=== PATIENT | male | born 1980 | race Caucasian/White ===

== ENCOUNTER 2016-07-18 05:36 | Day surgery (SDC) | payer OTHER ==
[2016-07-13 11:02] VITALS: BMI 20.9
[2016-07-18] MEDS ORDERED: KETAMINE HCL 500 MG/10 ML VIAL ONE (07:34)
[2016-07-18] MEDS ORDERED: ACETAMINOPHEN 325 MG TABLET (FP) PO PRN (08:11)
[2016-07-18] MEDS ORDERED: LACTATED RINGERS SOLUTION 1,000 ML IV SCH (08:15)
[2016-07-18 08:34] VITALS: PULSE 72; TEMP 97.5
[2016-07-18 08:59] VITALS: BP 116/80
== END 2016-07-18 09:00 | disposition home or self-care (01) ==
LOC: FECT 05:36
PROVIDERS: ATTEND Psychiatry & Neurology Psychiatry
PROC: GZB4ZZZ Other Electroconvulsive Therapy (ICD-10-PCS; principal; 2016-07-18 08:00)
DX: F33.1 Major depressive disorder, recurrent, moderate (principal)
CPT/HCPCS: 90870; 94760

== ENCOUNTER 2016-07-20 05:37 | Day surgery (SDC) | payer OTHER ==
[2016-07-13 11:07] VITALS: BMI 20.9
[2016-07-20] MEDS ORDERED: ONDANSETRON 4 MG/2 ML VIAL IVPUSH PRN (06:22)
[2016-07-20] MEDS ORDERED: LACTATED RINGERS SOLUTION 1,000 ML IV SCH (06:30)
[2016-07-20] MEDS ORDERED: KETAMINE HCL 500 MG/10 ML VIAL ONE (06:47)
[2016-07-20 07:44] VITALS: TEMP 98.2
[2016-07-20 10:01] VITALS: BP 126/80; PULSE 92
== END 2016-07-20 08:15 | disposition home or self-care (01) ==
LOC: FECT 05:37
PROVIDERS: ATTEND Psychiatry & Neurology Psychiatry
PROC: GZB4ZZZ Other Electroconvulsive Therapy (ICD-10-PCS; principal; 2016-07-20 07:45)
DX: F33.1 Major depressive disorder, recurrent, moderate (principal)
CPT/HCPCS: 90870; 94760

== ENCOUNTER → 2016-07-25 | Day surgery (SDC) | payer OTHER ==
[2016-07-19 16:19] VITALS: BMI 20.9
[~2016-07-25] MED LIST: KETAMINE HCL 500 MG/10 ML VIAL ONE; LACTATED RINGERS SOLUTION 1,000 ML IV SCH; MIDAZOLAM HCL 2 MG/2 ML SINGLE DOSE VIAL ONE
[2016-07-25 06:15] VITALS: TEMP 97.6
[2016-07-25 08:21] VITALS: BP 122/63; PULSE 84
== END | disposition home or self-care (01) ==
LOC: FECT 05:42
PROVIDERS: ATTEND Psychiatry & Neurology Psychiatry
PROC: GZB4ZZZ Other Electroconvulsive Therapy (ICD-10-PCS; principal; 2016-07-25 07:45)
DX: F33.1 Major depressive disorder, recurrent, moderate (principal)
CPT/HCPCS: 90870; 94760

== ENCOUNTER 2016-07-27 05:39 | Day surgery (SDC) | payer OTHER ==
[2016-07-20 10:10] VITALS: BMI 20.9
[2016-07-27 07:34] VITALS: TEMP 97.8
[2016-07-27 08:30] VITALS: BP 124/87; PULSE 85
== END 2016-07-27 08:45 | disposition home or self-care (01) ==
LOC: FECT 05:39
PROVIDERS: ATTEND Psychiatry & Neurology Psychiatry
PROC: GZB4ZZZ Other Electroconvulsive Therapy (ICD-10-PCS; principal; 2016-07-27 07:30)
DX: F33.1 Major depressive disorder, recurrent, moderate (principal)
CPT/HCPCS: 90870; 94760

== ENCOUNTER 2016-08-01 05:09 | Day surgery (SDC) | payer OTHER ==
[2016-07-26 08:06] VITALS: BMI 20.9
[2016-08-01 05:57] VITALS: TEMP 97.5
[2016-08-01 08:20] VITALS: BP 122/84; PULSE 92
[2016-08-01] MEDS ORDERED: LACTATED RINGERS SOLUTION 1,000 ML IV SCH (08:45)
== END 2016-08-01 08:10 | disposition home or self-care (01) ==
LOC: FECT 05:09
PROVIDERS: ATTEND Psychiatry & Neurology Psychiatry
PROC: GZB4ZZZ Other Electroconvulsive Therapy (ICD-10-PCS; principal; 2016-08-01 07:15)
DX: F33.1 Major depressive disorder, recurrent, moderate (principal)
CPT/HCPCS: 90870; 94760

== ENCOUNTER 2016-08-03 05:38 | Day surgery (SDC) | payer OTHER ==
[2016-08-03 06:05] VITALS: BMI 20.9
--- NOTE | 2016-08-03 06:49 | HP ---
Admitting History and Physical - Admission History of Present Illness: patient is a 35 y/o male with a past medical history of depression, anxiety and scizophrenia. patient presents for ECT, his last ECT was 08/01/16. He reports feeling well. Patient reports an improvement in depressive symptoms since starting ECT. Patient denies any suicidal or homicidal ideation, visual or auditory hallucination. He denies any changes to medications or hospitalizations. History Source: Patient - Past Medical History Psych: Yes: Anxiety, Depression, Schizophrenia - Smoking History Smoking history: Current every day smoker Have you smoked in the past 12 months: Yes Aproximately how many cigarettes per day: 10 - Alcohol/Substance Use Hx Alcohol Use: No (PT SOBER 7 MONTHS) - Social History ADL: Independent History of Recent Travel: No Home Medications - Allergies Allergies/Adverse Reactions: Allergies Allergy/AdvReac Type Severity Reaction Status Date / Time No Known Drug Allergies Allergy Verified 08/01/16 05:51 - Home Medications Home Medications: Ambulatory Orders Clozapine [Clozapine Odt] 100 mg PO BID 01/07/14 Clozapine [Clozapine Odt] 600 mg PO HS 01/07/14 Bupropion HCl [Wellbutrin Xl] 300 mg PO DAILY 07/02/16 Esomeprazole Magnesium 40 mg PO DAILY 07/02/16 Levetiracetam [Keppra Xr -] 1,000 mg PO BID 07/02/16 Metoprolol Succinate [Toprol XL -] 12.5 mg PO BID 07/02/16 Sucralfate [Carafate -] 1 gm PO QID 07/02/16 Trazodone HCl [Desyrel -] 200 mg PO HS 07/02/16 Potassium Chloride [Klor-Con] 20 meq PO DAILY 07/03/16 Risperidone [Risperdal] 2 mg PO BID 07/11/16 Family Disease History - Family Disease History Family History: Unremarkable Review of Systems - Review of Systems Constitutional: reports: No Symptoms Eyes: reports: No Symptoms HENT: reports: No Symptoms Neck: reports: No Symptoms Cardiovascular: reports: No Symptoms Respiratory: reports: No Symptoms Gastrointestinal: reports: No Symptoms Genitourinary: reports: No Symptoms Musculoskeletal: reports: No Symptoms Integumentary: reports: No Symptoms Neurological: reports: No Symptoms Endocrine: reports: No Symptoms Hematology/Lymphatic: reports: No Symptoms Psychiatric: reports: No Symptoms Physical Examination Vital Signs: Vital Signs Temperature 97.7 F 08/03/16 06:02 Pulse Rate 88 08/03/16 06:02 Respiratory Rate 18 08/03/16 06:02 Blood Pressure 118/76 08/03/16 06:02 O2 Sat by Pulse Oximetry (%) 99 08/03/16 06:02 Constitutional: Yes: Well Nourished, No Distress, Calm Eyes: Yes: WNL, Conjunctiva Clear, EOM Intact HENT: Yes: WNL, Atraumatic, Normocephalic Neck: Yes: WNL, Supple, Trachea Midline Cardiovascular: Yes: WNL, Regular Rate and Rhythm, S1, S2 Respiratory: Yes: WNL, Regular, CTA Bilaterally Gastrointestinal: Yes: WNL, Normal Bowel Sounds, Soft ...Rectal Exam: Yes: Deferred Renal/: Yes: WNL Musculoskeletal: Yes: WNL Extremities: Yes: WNL Edema: No Peripheral Pulses WNL: Yes Peripheral Pulses: Left Radial: 4+, Right Radial: 4+, Left Doralis Pedis: 3+, Right Dorsalis Pedis: 3+, Left Femoral: 3+, Right Femoral: 3+ Integumentary: Yes: WNL Neurological: Yes: WNL, Alert, Oriented ...Motor Strength: WNL Psychiatric: Yes: WNL, Alert, Oriented Labs: reviewed 07/03/16 Imaging - Results EKG: Image Reviewed, Other (nsr no ischemic changes) Assessment/Plan pt is a 35 y/o male that presents for ect, pt labs and ekg reviewed. pt is low risk for ect informed consent, risks/benefits to be obtained by Dr Bundy
[2016-08-03 09:17] VITALS: TEMP 98.5
[2016-08-03 11:40] VITALS: BP 132/82; PULSE 78
[2016-08-03] MEDS ORDERED: LACTATED RINGERS SOLUTION 1,000 ML IV SCH (12:30)
[2016-08-03] MEDS ORDERED: ONDANSETRON 4 MG/2 ML VIAL IVPUSH PRN (13:09)
== END 2016-08-03 10:00 | disposition home or self-care (01) ==
LOC: FECT 05:38
PROVIDERS: ATTEND Psychiatry & Neurology Psychiatry
PROC: GZB4ZZZ Other Electroconvulsive Therapy (ICD-10-PCS; principal; 2016-08-03 08:00)
DX: F33.1 Major depressive disorder, recurrent, moderate (principal)
CPT/HCPCS: 90870; 94760

== ENCOUNTER 2016-08-09 05:37 | Day surgery (SDC) | payer OTHER ==
[2016-08-06 07:36] VITALS: BMI 20.9
[2016-08-09] MEDS ORDERED: KETAMINE HCL 500 MG/10 ML VIAL ONE (06:52)
[2016-08-09] MEDS ORDERED: LACTATED RINGERS SOLUTION 1,000 ML IV SCH (07:30)
[2016-08-09 08:01] VITALS: PULSE 92; TEMP 97.8
[2016-08-09 08:31] VITALS: BP 127/84
== END 2016-08-09 08:25 | disposition home or self-care (01) ==
LOC: FECT 05:37
PROVIDERS: ATTEND Psychiatry & Neurology Psychiatry
PROC: GZB4ZZZ Other Electroconvulsive Therapy (ICD-10-PCS; principal; 2016-08-09 08:15)
DX: F33.1 Major depressive disorder, recurrent, moderate (principal)
CPT/HCPCS: 90870; 94760

== ENCOUNTER 2016-08-16 05:37 | Day surgery (SDC) | payer OTHER ==
[2016-08-13 16:41] VITALS: BMI 20.9
[2016-08-16 07:58] VITALS: PULSE 88; TEMP 98.9
[2016-08-16 08:26] VITALS: BP 136/84
== END 2016-08-16 08:15 | disposition home or self-care (01) ==
LOC: FECT 05:37
PROVIDERS: ATTEND Psychiatry & Neurology Psychiatry
PROC: GZB4ZZZ Other Electroconvulsive Therapy (ICD-10-PCS; principal; 2016-08-16 08:30)
DX: F33.1 Major depressive disorder, recurrent, moderate (principal)
CPT/HCPCS: 90870; 94760

== ENCOUNTER 2016-08-28 05:41 | Day surgery (SDC) | payer OTHER ==
[2016-08-17 14:04] VITALS: BMI 20.9
[2016-08-28] MEDS ORDERED: ONDANSETRON 4 MG/2 ML VIAL IVPUSH PRN (06:32)
[2016-08-28 06:36] VITALS: TEMP 98.7
[2016-08-28 09:08] VITALS: BP 130/85; PULSE 78
== END 2016-08-28 08:55 | disposition home or self-care (01) ==
LOC: FECT 05:41
PROVIDERS: ATTEND Psychiatry & Neurology Psychiatry
PROC: GZB4ZZZ Other Electroconvulsive Therapy (ICD-10-PCS; principal; 2016-08-28 07:45)
DX: F33.2 Major depressive disorder, recurrent severe without psychotic features (principal)
CPT/HCPCS: 90870; 94760

== ENCOUNTER 2016-08-31 05:41 | Day surgery (SDC) | payer OTHER ==
[2016-08-29 15:09] VITALS: BMI 20.9
[2016-08-31] MEDS ORDERED: ONDANSETRON 4 MG/2 ML VIAL IVPUSH PRN (06:27)
[2016-08-31 06:30] VITALS: TEMP 98
[2016-08-31] MEDS ORDERED: LACTATED RINGERS SOLUTION 1,000 ML IV SCH (06:30)
[2016-08-31 08:21] VITALS: BP 133/77; PULSE 86
== END 2016-08-31 08:30 | disposition home or self-care (01) ==
LOC: FECT 05:41
PROVIDERS: ATTEND Psychiatry & Neurology Psychiatry
PROC: GZB4ZZZ Other Electroconvulsive Therapy (ICD-10-PCS; principal; 2016-08-31 07:45)
DX: F33.1 Major depressive disorder, recurrent, moderate (principal)
CPT/HCPCS: 90870; 94760

== ENCOUNTER 2016-09-05 05:37 | Day surgery (SDC) | payer OTHER ==
[2016-08-31 13:23] VITALS: BMI 20.9
--- NOTE | 2016-09-05 06:59 | HP ---
Admitting History and Physical - Admission History of Present Illness: patient is a 35 y/o male with a past medical history of scizophrenia, depression , and anxiety. Patient presents for ECT, his last ECT was 08/28/16. patient reports feeling well, denies any changes to medications. he reports compliance with prescribed medications. he reports feeling well and reports an improvment in symptoms since starting ect. patient denies any suicidal or homicidal ideation. History Source: Patient Limitations to Obtaining History: No Limitations - Past Medical History Psych: Yes: Anxiety, Depression, Schizophrenia - Smoking History Smoking history: Current every day smoker Have you smoked in the past 12 months: Yes Aproximately how many cigarettes per day: 10 - Alcohol/Substance Use Hx Alcohol Use: No (SOBER DATE 03/04/16) - Social History Usual Living Arrangement: Yes: Other ADL: Independent History of Recent Travel: No Home Medications - Allergies Allergies/Adverse Reactions: Allergies Allergy/AdvReac Type Severity Reaction Status Date / Time No Known Drug Allergies Allergy Verified 08/01/16 05:51 - Home Medications Home Medications: Ambulatory Orders Clozapine [Clozapine Odt] 100 mg PO BID 01/07/14 Clozapine [Clozapine Odt] 600 mg PO HS 01/07/14 Bupropion HCl [Wellbutrin Xl] 300 mg PO DAILY 07/02/16 Esomeprazole Magnesium 40 mg PO DAILY 07/02/16 Levetiracetam [Keppra Xr -] 1,000 mg PO BID 07/02/16 Metoprolol Succinate [Toprol XL -] 12.5 mg PO BID 07/02/16 Sucralfate [Carafate -] 1 gm PO QID 07/02/16 Trazodone HCl [Desyrel -] 200 mg PO HS 07/02/16 Potassium Chloride [Klor-Con] 20 meq PO DAILY 07/03/16 Risperidone [Risperdal] 2 mg PO BID 07/11/16 Family Disease History - Family Disease History Family History: Unremarkable Review of Systems - Review of Systems Constitutional: reports: No Symptoms Eyes: reports: No Symptoms HENT: reports: No Symptoms Neck: reports: No Symptoms Cardiovascular: reports: No Symptoms Respiratory: reports: No Symptoms Gastrointestinal: reports: No Symptoms Genitourinary: reports: No Symptoms Musculoskeletal: reports: No Symptoms Integumentary: reports: No Symptoms Neurological: reports: No Symptoms Endocrine: reports: No Symptoms Hematology/Lymphatic: reports: No Symptoms Psychiatric: reports: No Symptoms Physical Examination Vital Signs: Vital Signs Temperature 97.7 F 09/05/16 05:55 Pulse Rate 83 09/05/16 05:55 Respiratory Rate 18 09/05/16 05:55 Blood Pressure 109/81 09/05/16 05:55 O2 Sat by Pulse Oximetry (%) 100 09/05/16 05:55 Constitutional: Yes: Well Nourished, No Distress, Calm Eyes: Yes: WNL, Conjunctiva Clear, EOM Intact HENT: Yes: WNL, Atraumatic, Normocephalic Neck: Yes: WNL, Supple, Trachea Midline Cardiovascular: Yes: WNL, Regular Rate and Rhythm, S1, S2 Respiratory: Yes: WNL, Regular, CTA Bilaterally Gastrointestinal: Yes: WNL, Normal Bowel Sounds, Soft Renal/: Yes: WNL Breast(s): Yes: WNL Musculoskeletal: Yes: WNL Extremities: Yes: WNL Edema: No Peripheral Pulses WNL: Yes Peripheral Pulses: Left Radial: 4+, Right Radial: 4+, Left Doralis Pedis: 3+, Right Dorsalis Pedis: 3+, Left Femoral: 3+, Right Femoral: 3+ Integumentary: Yes: WNL Neurological: Yes: WNL, Alert, Oriented ...Motor Strength: WNL Psychiatric: Yes: WNL, Alert, Oriented (reviewed 06/29) Imaging - Results EKG: Image Reviewed (nsr no ischemic changes) Assessment/Plan pt is a 35 y/o male that presents for ECT, he has received ect in the past and denies any adverse reaction to anesthesia. labs and ekg reviewed pt is low risk for procedure informed consent and risks/benefits to be obtained by Dr Bundy
[2016-09-05 08:15] VITALS: TEMP 97.9
[2016-09-05 09:27] VITALS: BP 119/72; PULSE 73
== END 2016-09-05 09:05 | disposition home or self-care (01) ==
LOC: FECT 05:37
PROVIDERS: ATTEND Psychiatry & Neurology Psychiatry
PROC: GZB4ZZZ Other Electroconvulsive Therapy (ICD-10-PCS; principal; 2016-09-05 07:00)
DX: F33.1 Major depressive disorder, recurrent, moderate (principal)
CPT/HCPCS: 90870; 94760

== ENCOUNTER 2016-09-12 05:40 | Day surgery (SDC) | payer OTHER ==
[2016-09-05 09:25] VITALS: BMI 20.9
[2016-09-12 06:00] VITALS: TEMP 97.8
[2016-09-12] MEDS ORDERED: KETAMINE HCL 500 MG/10 ML VIAL ONE (06:43)
[2016-09-12] MEDS ORDERED: ONDANSETRON 4 MG/2 ML VIAL IVPUSH PRN (07:00)
[2016-09-12] MEDS ORDERED: LACTATED RINGERS SOLUTION 1,000 ML IV SCH (07:00)
[2016-09-12 08:50] VITALS: BP 116/78; PULSE 79
== END 2016-09-12 08:40 | disposition home or self-care (01) ==
LOC: FECT 05:40
PROVIDERS: ATTEND Psychiatry & Neurology Psychiatry
PROC: GZB4ZZZ Other Electroconvulsive Therapy (ICD-10-PCS; principal; 2016-09-12 07:15)
DX: F33.2 Major depressive disorder, recurrent severe without psychotic features (principal)
CPT/HCPCS: 90870; 94760

== ENCOUNTER 2016-09-18 05:33 | Day surgery (SDC) | payer OTHER ==
[2016-09-12 15:06] VITALS: BMI 20.9
[2016-09-18 08:38] VITALS: BP 124/84; PULSE 82; TEMP 98
[2016-09-18] MEDS ORDERED: ONDANSETRON 4 MG/2 ML VIAL IVPUSH PRN (08:39)
[2016-09-18] MEDS ORDERED: LACTATED RINGERS SOLUTION 1,000 ML IV SCH (08:45)
== END 2016-09-18 08:30 | disposition home or self-care (01) ==
LOC: FECT 05:33
PROVIDERS: ATTEND Psychiatry & Neurology Psychiatry
PROC: GZB4ZZZ Other Electroconvulsive Therapy (ICD-10-PCS; principal; 2016-09-18 07:45)
DX: F33.2 Major depressive disorder, recurrent severe without psychotic features (principal)
CPT/HCPCS: 90870; 94760

== ENCOUNTER 2016-09-26 05:34 | Day surgery (SDC) | payer OTHER ==
[2016-09-26 06:19] VITALS: BMI 22.6
[2016-09-26 08:07] VITALS: BP 132/81; PULSE 74; TEMP 98.2
[2016-09-26] MEDS ORDERED: ACETAMINOPHEN 325 MG TABLET (FP) PO PRN (08:13)
[2016-09-26] MEDS ORDERED: ONDANSETRON 4 MG/2 ML VIAL IVPUSH PRN (08:16)
== END 2016-09-26 08:15 | disposition home or self-care (01) ==
LOC: FECT 05:34
PROVIDERS: ATTEND Psychiatry & Neurology Psychiatry
PROC: GZB4ZZZ Other Electroconvulsive Therapy (ICD-10-PCS; principal; 2016-09-26 07:15)
DX: F33.2 Major depressive disorder, recurrent severe without psychotic features (principal)
CPT/HCPCS: 90870; 94760

== ENCOUNTER 2016-10-02 05:38 | Day surgery (SDC) | payer OTHER ==
[2016-10-02 08:26] VITALS: TEMP 98
[2016-10-02 08:57] VITALS: BP 136/95; PULSE 72
[2016-10-02] MEDS ORDERED: ONDANSETRON 4 MG/2 ML VIAL IVPUSH PRN (08:59)
[2016-10-02] MEDS ORDERED: LACTATED RINGERS SOLUTION 1,000 ML IV SCH (09:00)
== END 2016-10-02 09:30 | disposition home or self-care (01) ==
LOC: FECT 05:38
PROVIDERS: ATTEND Psychiatry & Neurology Psychiatry
PROC: GZB4ZZZ Other Electroconvulsive Therapy (ICD-10-PCS; principal; 2016-10-02 07:15)
DX: F33.2 Major depressive disorder, recurrent severe without psychotic features (principal)
CPT/HCPCS: 90870; 94760

== ENCOUNTER 2016-10-09 05:39 | Day surgery (SDC) | payer OTHER ==
[2016-10-08 11:56] VITALS: BMI 22.6
[2016-10-09 06:39] VITALS: TEMP 98.9
--- NOTE | 2016-10-09 06:52 | HP ---
Admitting History and Physical - Admission History of Present Illness: patient is a 36 y/o male with a past medical history of scizophrenia, depression and anxiety. patient presents for ect, his last ect was 10/02/16. He reports feeling well and reports compliance with prescribed medication. patient denies any recent medication changes, hospitalizations, or illness. History Source: Patient Limitations to Obtaining History: No Limitations - Past Medical History Psych: Yes: Anxiety, Depression, Schizophrenia - Smoking History Smoking history: Current every day smoker Have you smoked in the past 12 months: Yes Aproximately how many cigarettes per day: 10 - Alcohol/Substance Use Hx Alcohol Use: No (SOBER DATE 03/04/16) - Social History Usual Living Arrangement: Yes: Assisted Living, Other ADL: Independent History of Recent Travel: No Home Medications - Allergies Allergies/Adverse Reactions: Allergies Allergy/AdvReac Type Severity Reaction Status Date / Time No Known Drug Allergies Allergy Verified 08/01/16 05:51 - Home Medications Home Medications: Ambulatory Orders Clozapine [Clozapine Odt] 100 mg PO BID 01/07/14 Clozapine [Clozapine Odt] 600 mg PO HS 01/07/14 Bupropion HCl [Wellbutrin Xl] 300 mg PO DAILY 07/02/16 Esomeprazole Magnesium 40 mg PO DAILY 07/02/16 Levetiracetam [Keppra Xr -] 1,000 mg PO BID 07/02/16 Metoprolol Succinate [Toprol XL -] 12.5 mg PO BID 07/02/16 Sucralfate [Carafate -] 1 gm PO QID 07/02/16 Trazodone HCl [Desyrel -] 200 mg PO HS 07/02/16 Potassium Chloride [Klor-Con] 20 meq PO DAILY 07/03/16 Risperidone [Risperdal] 2 mg PO BID 07/11/16 Family Disease History - Family Disease History Family History: Unremarkable Review of Systems - Review of Systems Constitutional: reports: No Symptoms Eyes: reports: No Symptoms HENT: reports: No Symptoms Neck: reports: No Symptoms Cardiovascular: reports: No Symptoms Respiratory: reports: No Symptoms Gastrointestinal: reports: No Symptoms Genitourinary: reports: No Symptoms Breasts: reports: No Symptoms Reported Musculoskeletal: reports: No Symptoms Integumentary: reports: No Symptoms Neurological: reports: No Symptoms Endocrine: reports: No Symptoms Hematology/Lymphatic: reports: No Symptoms Psychiatric: reports: No Symptoms Physical Examination Vital Signs: Vital Signs Temperature 98.9 F 10/09/16 06:33 Pulse Rate 81 10/09/16 06:33 Respiratory Rate 18 10/09/16 06:33 Blood Pressure 108/76 10/09/16 06:33 O2 Sat by Pulse Oximetry (%) 98 10/09/16 06:33 Constitutional: Yes: Well Nourished, No Distress, Calm Eyes: Yes: WNL, Conjunctiva Clear, EOM Intact HENT: Yes: WNL, Atraumatic, Normocephalic Neck: Yes: WNL, Supple, Trachea Midline Cardiovascular: Yes: WNL, Regular Rate and Rhythm, S1, S2 Respiratory: Yes: WNL, Regular, CTA Bilaterally Gastrointestinal: Yes: WNL, Normal Bowel Sounds, Soft ...Rectal Exam: Yes: Deferred Renal/: Yes: WNL Musculoskeletal: Yes: WNL Extremities: Yes: WNL Edema: No Peripheral Pulses WNL: Yes Peripheral Pulses: Left Radial: 4+, Right Radial: 4+, Left Doralis Pedis: 3+, Right Dorsalis Pedis: 3+, Left Femoral: 3+, Right Femoral: 3+ Integumentary: Yes: WNL Neurological: Yes: WNL, Alert, Oriented ...Motor Strength: WNL Psychiatric: Yes: WNL, Alert, Oriented Labs: reviewed 06/29 Imaging - Results EKG: Report Reviewed, Image Reviewed, Other (nsr no ischemic changes) Assessment/Plan pt is a 36 y/o male that presents for ect, pt has received ect in the past and denies any adverse reaction to anesthesia. labs and ekg reviewed. pt is low risk for procedure informed consent, risk/benefits to be obtained by Dr Bundy
[2016-10-09] MEDS ORDERED: LACTATED RINGERS SOLUTION 1,000 ML IV SCH (07:30)
[2016-10-09 09:02] VITALS: BP 131/84; PULSE 69
== END 2016-10-09 09:05 | disposition home or self-care (01) ==
LOC: FECT 05:39
PROVIDERS: ATTEND Psychiatry & Neurology Psychiatry
PROC: GZB4ZZZ Other Electroconvulsive Therapy (ICD-10-PCS; principal; 2016-10-09 07:15)
DX: F33.2 Major depressive disorder, recurrent severe without psychotic features (principal)
CPT/HCPCS: 90870; 94760

== ENCOUNTER 2016-10-18 05:35 | Day surgery (SDC) | payer OTHER ==
[2016-10-16 11:58] VITALS: BMI 22.6
[2016-10-18 07:49] VITALS: TEMP 97.6
[2016-10-18 08:06] VITALS: BP 124/85; PULSE 88
== END 2016-10-18 08:45 | disposition home or self-care (01) ==
LOC: FECT 05:35
PROVIDERS: ATTEND Psychiatry & Neurology Psychiatry
PROC: GZB4ZZZ Other Electroconvulsive Therapy (ICD-10-PCS; principal; 2016-10-18 07:15)
DX: F33.2 Major depressive disorder, recurrent severe without psychotic features (principal)
CPT/HCPCS: 90870; 94760

== ENCOUNTER 2016-10-30 05:34 | Day surgery (SDC) | payer OTHER ==
[2016-10-23 16:14] VITALS: BMI 22.6
[2016-10-30 06:24] VITALS: TEMP 97.6
[2016-10-30 08:20] VITALS: BP 130/89; PULSE 85
[2016-10-30] MEDS ORDERED: ONDANSETRON 4 MG/2 ML VIAL IVPUSH PRN (08:33)
[2016-10-30] MEDS ORDERED: LACTATED RINGERS SOLUTION 1,000 ML IV SCH (08:45)
== END 2016-10-30 08:50 | disposition home or self-care (01) ==
LOC: FECT 05:34
PROVIDERS: ATTEND Psychiatry & Neurology Psychiatry
PROC: GZB4ZZZ Other Electroconvulsive Therapy (ICD-10-PCS; principal; 2016-10-30 07:45)
DX: F33.2 Major depressive disorder, recurrent severe without psychotic features (principal)
CPT/HCPCS: 90870; 94760

== ENCOUNTER 2016-11-06 05:37 | Day surgery (SDC) | payer OTHER ==
[2016-11-01 11:07] VITALS: BMI 22.6
[2016-11-06 06:13] VITALS: TEMP 98.1
[2016-11-06] MEDS ORDERED: KETAMINE HCL 500 MG/10 ML VIAL ONE (06:54)
[2016-11-06 08:09] VITALS: BP 125/85; PULSE 82
== END 2016-11-06 08:30 | disposition home or self-care (01) ==
LOC: FECT 05:37
PROVIDERS: ATTEND Psychiatry & Neurology Psychiatry
PROC: GZB4ZZZ Other Electroconvulsive Therapy (ICD-10-PCS; principal; 2016-11-06 07:45)
DX: F33.2 Major depressive disorder, recurrent severe without psychotic features (principal)
CPT/HCPCS: 90870; 94760

== ENCOUNTER 2016-11-15 05:36 | Day surgery (SDC) | payer OTHER ==
[2016-11-08 09:20] VITALS: BMI 22.6
[2016-11-15 06:07] VITALS: TEMP 97.8
--- NOTE | 2016-11-15 06:52 | HP ---
Admitting History and Physical - Admission History of Present Illness: patient is a 36 y/o male with a past medical history of depression, anxiety, and scizophrenia. Patient presents for ECT his last ECT was 11/09/16. patient reports feeling well, denies any changes in his medications, illness, or hospitalizations. Patient reports an improvement in depressive symptoms since starting ECT. He denies any suicidal or homicidal ideation and visual or auditory hallucinations. History Source: Patient Limitations to Obtaining History: No Limitations - Past Medical History Psych: Yes: Anxiety, Depression, Schizophrenia - Smoking History Smoking history: Current every day smoker Have you smoked in the past 12 months: Yes Aproximately how many cigarettes per day: 2 - Alcohol/Substance Use Hx Alcohol Use: No (SOBER DATE 03/04/16) - Social History Usual Living Arrangement: Yes: Other (with roomates) ADL: Independent History of Recent Travel: No Home Medications - Allergies Allergies/Adverse Reactions: Allergies Allergy/AdvReac Type Severity Reaction Status Date / Time No Known Drug Allergies Allergy Verified 08/01/16 05:51 - Home Medications Home Medications: Ambulatory Orders Clozapine [Clozapine Odt] 100 mg PO BID 01/07/14 Clozapine [Clozapine Odt] 600 mg PO HS 01/07/14 Bupropion HCl [Wellbutrin Xl] 300 mg PO DAILY 07/02/16 Esomeprazole Magnesium 40 mg PO DAILY 07/02/16 Levetiracetam [Keppra Xr -] 1,000 mg PO BID 07/02/16 Metoprolol Succinate [Toprol XL -] 12.5 mg PO BID 07/02/16 Sucralfate [Carafate -] 1 gm PO QID 07/02/16 Trazodone HCl [Desyrel -] 200 mg PO HS 07/02/16 Potassium Chloride [Klor-Con] 20 meq PO DAILY 07/03/16 Risperidone [Risperdal] 2 mg PO BID 07/11/16 Varenicline Tartrate [Chantix] 1 mg PO BID 10/30/16 Family Disease History - Family Disease History Family History: Denies Review of Systems - Review of Systems Constitutional: reports: No Symptoms Eyes: reports: No Symptoms HENT: reports: No Symptoms Neck: reports: No Symptoms Cardiovascular: reports: No Symptoms Respiratory: reports: No Symptoms Gastrointestinal: reports: No Symptoms Genitourinary: reports: No Symptoms Musculoskeletal: reports: No Symptoms Neurological: reports: No Symptoms Endocrine: reports: No Symptoms Hematology/Lymphatic: reports: No Symptoms Psychiatric: reports: No Symptoms Physical Examination Vital Signs: Vital Signs Temperature 97.8 F 11/15/16 06:02 Pulse Rate 100 H 11/15/16 06:02 Respiratory Rate 18 11/15/16 06:02 Blood Pressure 118/82 11/15/16 06:02 O2 Sat by Pulse Oximetry (%) 100 11/15/16 06:02 Constitutional: Yes: Well Nourished, No Distress, Calm Eyes: Yes: WNL, Conjunctiva Clear, EOM Intact HENT: Yes: WNL, Atraumatic, Normocephalic Neck: Yes: WNL, Supple, Trachea Midline Cardiovascular: Yes: WNL, Regular Rate and Rhythm, S1, S2 Respiratory: Yes: WNL, Regular, CTA Bilaterally Gastrointestinal: Yes: WNL, Normal Bowel Sounds, Soft ...Rectal Exam: Yes: Deferred Renal/: Yes: WNL. No: CVA Tenderness - Left, CVA Tenderness - Right Musculoskeletal: Yes: WNL Extremities: Yes: WNL Edema: No Peripheral Pulses WNL: Yes Peripheral Pulses: Left Radial: 4+, Right Radial: 4+, Left Doralis Pedis: 3+, Right Dorsalis Pedis: 3+, Left Femoral: 3+, Right Femoral: 3+ Integumentary: Yes: WNL Neurological: Yes: WNL, Alert, Oriented ...Motor Strength: WNL Psychiatric: Yes: WNL, Alert, Oriented Labs: reviewed 06/29 Imaging - Results EKG: Image Reviewed, Other (nsr no ischemic changes) Assessment/Plan pt is a 36 y/o male that presents for ECT, pt has received ect in the past and denies any adverse reaction to anesthesia. labs and ekg reviewed pt is low risk for procedure informed consent and risks/benefits to be obtained by Dr Bundy
[2016-11-15] MEDS ORDERED: ONDANSETRON 4 MG/2 ML VIAL IVPUSH PRN (06:55)
[2016-11-15] MEDS ORDERED: KETAMINE HCL 500 MG/10 ML VIAL ONE (06:59)
[2016-11-15 08:56] VITALS: BP 121/87; PULSE 82
== END 2016-11-15 08:30 | disposition home or self-care (01) ==
LOC: FECT 05:36
PROVIDERS: ATTEND Psychiatry & Neurology Psychiatry
PROC: GZB4ZZZ Other Electroconvulsive Therapy (ICD-10-PCS; principal; 2016-11-15 07:15)
DX: F33.2 Major depressive disorder, recurrent severe without psychotic features (principal)
CPT/HCPCS: 90870; 94760

== ENCOUNTER 2016-11-29 05:30 | Day surgery (SDC) | payer OTHER ==
[2016-11-19 14:33] VITALS: BMI 22.6
[2016-11-29 06:16] VITALS: TEMP 97.6
[2016-11-29] MEDS ORDERED: KETAMINE HCL 500 MG/10 ML VIAL ONE (07:23)
[2016-11-29 08:37] VITALS: BP 133/88; PULSE 88
[2016-11-29] MEDS ORDERED: ACETAMINOPHEN 325 MG TABLET (FP) PO PRN (09:47)
[2016-11-29] MEDS ORDERED: ONDANSETRON 4 MG/2 ML VIAL IVPUSH PRN (09:48)
== END 2016-11-29 08:40 | disposition home or self-care (01) ==
LOC: FECT 05:30
PROVIDERS: ATTEND Psychiatry & Neurology Psychiatry
PROC: GZB4ZZZ Other Electroconvulsive Therapy (ICD-10-PCS; principal; 2016-11-29 08:00)
DX: F33.2 Major depressive disorder, recurrent severe without psychotic features (principal)
CPT/HCPCS: 90870; 94760

== ENCOUNTER 2016-12-13 05:38 | Day surgery (SDC) | payer OTHER ==
[2016-12-05 13:27] VITALS: BMI 22.6
[2016-12-13 06:06] VITALS: TEMP 97.6
[2016-12-13 08:21] VITALS: BP 136/88; PULSE 83
== END 2016-12-13 08:40 | disposition home or self-care (01) ==
LOC: FECT 05:38
PROVIDERS: ATTEND Psychiatry & Neurology Psychiatry
PROC: GZB4ZZZ Other Electroconvulsive Therapy (ICD-10-PCS; principal; 2016-12-13 07:15)
DX: F33.2 Major depressive disorder, recurrent severe without psychotic features (principal)
CPT/HCPCS: 90870; 94760

== ENCOUNTER 2016-12-20 05:38 | Day surgery (SDC) | payer OTHER ==
[2016-12-13 12:24] VITALS: BMI 22.6
--- NOTE | 2016-12-20 06:57 | HP ---
Admitting History and Physical - Admission History of Present Illness: patient is a 36 y/o male with a past medical history of depression, scizophrenia , and anxiety. Patient presents for ECT, his last ECT was 12/13/16. Patient reports starting chantix two months ago. In addition, patient reports hearing voices three weeks ago, however, the voices have been worsening within the past week. Patient reports the voices are telling to him to jump in front a train. Patient denies any homicidal ideation. Patient reports his trazadone was increased yesterday to 200mg. He does report sleeping 8 hours yesterday. Patient denies any recent cough, colds or fevers. History Source: Patient - Past Medical History Psych: Yes: Anxiety, Depression, Schizophrenia - Smoking History Smoking history: Current every day smoker Have you smoked in the past 12 months: Yes Aproximately how many cigarettes per day: 1 - Alcohol/Substance Use Hx Alcohol Use: No (SOBER DATE 03/04/16) - Social History ADL: Independent History of Recent Travel: No Home Medications - Allergies Allergies/Adverse Reactions: Allergies Allergy/AdvReac Type Severity Reaction Status Date / Time No Known Drug Allergies Allergy Verified 08/01/16 05:51 - Home Medications Home Medications: Ambulatory Orders Clozapine [Clozapine Odt] 100 mg PO BID 01/07/14 Clozapine [Clozapine Odt] 600 mg PO HS 01/07/14 Bupropion HCl [Wellbutrin Xl] 300 mg PO DAILY 07/02/16 Esomeprazole Magnesium 40 mg PO DAILY 07/02/16 Levetiracetam [Keppra Xr -] 1,000 mg PO BID 07/02/16 Metoprolol Succinate [Toprol XL -] 12.5 mg PO BID 07/02/16 Sucralfate [Carafate -] 1 gm PO QID 07/02/16 Trazodone HCl [Desyrel -] 300 mg PO HS 07/02/16 Potassium Chloride [Klor-Con] 20 meq PO DAILY 07/03/16 Risperidone [Risperdal] 2 mg PO BID 07/11/16 Varenicline Tartrate [Chantix] 1 mg PO BID 10/30/16 Family Disease History - Family Disease History Family History: Unremarkable Review of Systems - Review of Systems Constitutional: reports: No Symptoms Eyes: reports: No Symptoms HENT: reports: No Symptoms Neck: reports: No Symptoms Cardiovascular: reports: No Symptoms Respiratory: reports: No Symptoms Gastrointestinal: reports: No Symptoms Genitourinary: reports: No Symptoms Breasts: reports: No Symptoms Reported Musculoskeletal: reports: No Symptoms Integumentary: reports: No Symptoms Neurological: reports: No Symptoms Endocrine: reports: No Symptoms Hematology/Lymphatic: reports: No Symptoms Psychiatric: reports: Hallucinations Physical Examination Vital Signs: Vital Signs Temperature 97.5 F L 12/20/16 06:22 Pulse Rate 83 12/20/16 06:22 Respiratory Rate 18 12/20/16 06:22 Blood Pressure 122/86 12/20/16 06:22 O2 Sat by Pulse Oximetry (%) 98 12/20/16 06:22 Constitutional: Yes: Well Nourished, No Distress, Calm Eyes: Yes: WNL, Conjunctiva Clear, EOM Intact HENT: Yes: WNL, Atraumatic, Normocephalic Neck: Yes: WNL, Supple, Trachea Midline Cardiovascular: Yes: WNL, Regular Rate and Rhythm, S1, S2 Respiratory: Yes: WNL, Regular, CTA Bilaterally Gastrointestinal: Yes: WNL, Normal Bowel Sounds, Soft ...Rectal Exam: Yes: Deferred Renal/: Yes: WNL Breast(s): Yes: WNL Musculoskeletal: Yes: WNL Extremities: Yes: WNL Edema: No Peripheral Pulses WNL: Yes Peripheral Pulses: Left Radial: 4+, Right Radial: 4+, Left Doralis Pedis: 3+, Right Dorsalis Pedis: 3+, Left Femoral: 3+, Right Femoral: 3+ Integumentary: Yes: WNL Neurological: Yes: WNL, Alert, Oriented ...Motor Strength: WNL Psychiatric: Yes: WNL, Alert, Oriented Labs: reviewed 06/29 Imaging - Results EKG: Other (nsr no ischemic changes) Assessment/Plan pt is a 36 y/o male that presents for ect, he has received ect in the past and denies any adverse reaction to anesthesia. labs and ekg reviewed pt is low risk for procedure. informed consent, risk/benefits to be obtained by Dr Bundy
[2016-12-20 08:04] LABS: ALBUMIN 4.2 g/dl (3.5-5.0); ALK PHOS 76 U/L (32-92); ANION GAP 9 (8-16); CALCIUM 9.4 mg/dl (8.4-10.2); CO2 25 mmol/L (22-28); CREATININE 1.1 mg/dl (0.6-1.3); GLUCOSE,RANDOM 101 mg/dl (74-106); SGOT/AST 24 U/L (10-42); SGPT/ALT 26 U/L (10-40); TOT PROT 6.6 g/dl (6.4-8.3)
[2016-12-20 08:39] LABS: BILIRUBIN,TOTAL < 0.3 mg/dl (0.2-1.0)
[2016-12-20] MEDS ORDERED: LACTATED RINGERS SOLUTION 1,000 ML IV SCH (08:45)
[2016-12-20] MEDS ORDERED: ONDANSETRON 4 MG/2 ML VIAL IVPUSH PRN (08:45)
[2016-12-20 09:02] LABS: MCH 30.8 pg (25.7-33.7); MCHC 33.3 g/dl (32.0-35.9); MEAN CELL VOLUME 92.3 fl (80-96); MEAN PLT VOLUME 7.8 fl (7.5-11.1); PLATELET COUNT 327 K/MM3 (134-434); RDW 13.5 % (11.9-15.9); WHITE BLOOD COUNT 11.9 K/mm3 (4.0-10.8)
[2016-12-20 09:36] VITALS: BP 130/84; PULSE 88; TEMP 98
== END 2016-12-20 09:50 | disposition home or self-care (01) ==
LOC: FECT 05:38
PROVIDERS: ATTEND Psychiatry & Neurology Psychiatry
PROC: GZB4ZZZ Other Electroconvulsive Therapy (ICD-10-PCS; principal; 2016-12-20 07:45)
DX: F33.2 Major depressive disorder, recurrent severe without psychotic features (principal)
CPT/HCPCS: 36415; 80053; 85027; 90870; 94760

== ENCOUNTER 2016-12-21 05:40 | Day surgery (SDC) | payer OTHER ==
[2016-12-21 06:21] VITALS: BMI 21.7
[2016-12-21 07:45] VITALS: TEMP 97.6
[2016-12-21 08:51] VITALS: BP 134/89; PULSE 92
--- NOTE | 2016-12-21 16:53 | EKG ---
Test Reason : Blood Pressure : / mmHG Vent. Rate : 087 BPM Atrial Rate : 087 BPM P-R Int : 150 ms QRS Dur : 088 ms QT Int : 372 ms P-R-T Axes : 028 036 036 degrees QTc Int : 447 ms NORMAL SINUS RHYTHM NORMAL ECG NO PREVIOUS ECGS AVAILABLE Confirmed by BIB JEAN BAPTISTE MD ([id number] on 12/21/2016 4:53:17 PM Referred By: Fran Bundy Confirmed By:BIB JEAN BAPTISTE MD
== END 2016-12-21 08:50 | disposition home or self-care (01) ==
LOC: FECT 05:40
PROVIDERS: ATTEND Psychiatry & Neurology Psychiatry
PROC: GZB4ZZZ Other Electroconvulsive Therapy (ICD-10-PCS; principal; 2016-12-21 07:30)
DX: F33.2 Major depressive disorder, recurrent severe without psychotic features (principal)
CPT/HCPCS: 90870; 93005; 93010; 94760

== ENCOUNTER 2016-12-24 05:42 | Day surgery (SDC) | payer OTHER ==
[2016-12-24 08:00] VITALS: TEMP 97.4
[2016-12-24 08:41] VITALS: BP 130/88; PULSE 78
== END 2016-12-24 09:20 | disposition home or self-care (01) ==
LOC: FECT 05:42
PROVIDERS: ATTEND Psychiatry & Neurology Psychiatry
PROC: GZB4ZZZ Other Electroconvulsive Therapy (ICD-10-PCS; principal; 2016-12-24 08:00)
DX: F33.2 Major depressive disorder, recurrent severe without psychotic features (principal)
CPT/HCPCS: 90870; 94760

== ENCOUNTER 2016-12-27 05:36 | Day surgery (SDC) | payer OTHER ==
[2016-12-26 11:48] VITALS: BMI 21.7
[2016-12-27] MEDS ORDERED: KETAMINE HCL 500 MG/10 ML VIAL ONE (07:18)
[2016-12-27 08:10] VITALS: TEMP 98.1
[2016-12-27 08:19] VITALS: BP 139/88; PULSE 88
== END 2016-12-27 08:30 | disposition home or self-care (01) ==
LOC: FECT 05:36
PROVIDERS: ATTEND Psychiatry & Neurology Psychiatry
PROC: GZB4ZZZ Other Electroconvulsive Therapy (ICD-10-PCS; principal; 2016-12-27 07:15)
DX: F33.2 Major depressive disorder, recurrent severe without psychotic features (principal)
CPT/HCPCS: 90870; 94760

== ENCOUNTER 2017-01-01 05:37 | Day surgery (SDC) | payer OTHER ==
[2016-12-27 11:22] VITALS: BMI 21.7
[2017-01-01 08:13] VITALS: TEMP 98
[2017-01-01 08:25] VITALS: BP 136/88; PULSE 84
== END 2017-01-01 08:30 | disposition home or self-care (01) ==
LOC: FECT 05:37
PROVIDERS: ATTEND Psychiatry & Neurology Psychiatry
PROC: GZB4ZZZ Other Electroconvulsive Therapy (ICD-10-PCS; principal; 2017-01-01 07:15)
DX: F33.2 Major depressive disorder, recurrent severe without psychotic features (principal)
CPT/HCPCS: 90870; 94760

== ENCOUNTER 2017-01-08 05:36 | Day surgery (SDC) | payer OTHER ==
[2017-01-02 13:00] VITALS: BMI 20.9
[2017-01-08 07:59] VITALS: TEMP 97.8
[2017-01-08 08:33] VITALS: BP 141/87; PULSE 90
== END 2017-01-08 08:35 | disposition home or self-care (01) ==
LOC: FECT 05:36
PROVIDERS: ATTEND Psychiatry & Neurology Psychiatry
PROC: GZB4ZZZ Other Electroconvulsive Therapy (ICD-10-PCS; principal; 2017-01-08 07:45)
DX: F33.2 Major depressive disorder, recurrent severe without psychotic features (principal)
CPT/HCPCS: 90870; 94760

== ENCOUNTER 2017-01-14 05:40 | Day surgery (SDC) | payer OTHER ==
[2017-01-08 12:00] VITALS: BMI 20.9
[2017-01-14 06:30] VITALS: TEMP 97.6
[2017-01-14] MEDS ORDERED: oxyCODONE HCL 5 MG TABLET PO PRN (07:32)
[2017-01-14] MEDS ORDERED: ONDANSETRON 4 MG/2 ML VIAL IVPUSH PRN (07:32)
[2017-01-14] MEDS ORDERED: LACTATED RINGERS SOLUTION 1,000 ML IV SCH (07:45)
[2017-01-14 07:49] VITALS: PULSE 78
[2017-01-14 08:15] VITALS: BP 138/88
== END 2017-01-14 08:37 | disposition home or self-care (01) ==
LOC: FECT 05:40
PROVIDERS: ATTEND Psychiatry & Neurology Psychiatry
PROC: GZB4ZZZ Other Electroconvulsive Therapy (ICD-10-PCS; principal; 2017-01-14 08:15)
DX: F33.2 Major depressive disorder, recurrent severe without psychotic features (principal)
CPT/HCPCS: 90870; 94760

== ENCOUNTER 2017-01-22 05:38 | Day surgery (SDC) | payer OTHER ==
[2017-01-17 08:53] VITALS: BMI 20.9
[2017-01-22 06:16] VITALS: TEMP 97.6
--- NOTE | 2017-01-22 06:51 | HP ---
Admitting History and Physical - Admission History of Present Illness: patient is a 36 y/o male with a past medical history of scizophrenia, depression , and anxiety. Patient presents for ect, his last ect was 01/14/17. He reports feeling better and does report an improvement in symptoms since increasing his ect sessions. He report a decrease in hearing the voices within the past month. Patient denies any suicidal or homicidal ideation. He denies any recent illnessess or hospitalizations History Source: Patient Limitations to Obtaining History: No Limitations - Past Medical History Psych: Yes: Anxiety, Depression, Schizophrenia - Smoking History Smoking history: Current every day smoker Have you smoked in the past 12 months: Yes Aproximately how many cigarettes per day: 1 - Alcohol/Substance Use Hx Alcohol Use: No (SOBER DATE 03/04/16) - Social History Usual Living Arrangement: Yes: Other ([facility] with individuals with psychiatric disabilities) ADL: Independent History of Recent Travel: No Home Medications - Allergies Allergies/Adverse Reactions: Allergies Allergy/AdvReac Type Severity Reaction Status Date / Time No Known Drug Allergies Allergy Verified 01/14/17 06:21 - Home Medications Home Medications: Ambulatory Orders Clozapine [Clozapine Odt] 100 mg PO ASDIR 01/07/14 Clozapine [Clozapine Odt] 600 mg PO HS 01/07/14 Bupropion HCl [Wellbutrin Xl] 300 mg PO DAILY 07/02/16 Esomeprazole Magnesium 40 mg PO DAILY 07/02/16 Levetiracetam [Keppra Xr -] 1,000 mg PO BID 07/02/16 Metoprolol Succinate [Toprol XL -] 12.5 mg PO BID 07/02/16 Sucralfate [Carafate -] 1 gm PO QID 07/02/16 Trazodone HCl [Desyrel -] 300 mg PO HS 07/02/16 Potassium Chloride [Klor-Con] 20 meq PO DAILY 07/03/16 Risperidone [Risperdal] 2 mg PO BID 07/11/16 Varenicline Tartrate [Chantix] 1 mg PO BID 10/30/16 Clozapine [Clozapine Odt] 150 mg PO DAILY 12/27/16 Family Disease History - Family Disease History Family History: Unremarkable Review of Systems - Review of Systems Constitutional: reports: No Symptoms Eyes: reports: No Symptoms HENT: reports: No Symptoms Neck: reports: No Symptoms Cardiovascular: reports: No Symptoms Respiratory: reports: No Symptoms Gastrointestinal: reports: No Symptoms Genitourinary: reports: No Symptoms Breasts: reports: No Symptoms Reported Musculoskeletal: reports: No Symptoms Integumentary: reports: No Symptoms Neurological: reports: No Symptoms Endocrine: reports: No Symptoms Hematology/Lymphatic: reports: No Symptoms Psychiatric: reports: No Symptoms Physical Examination Vital Signs: Vital Signs Temperature 97.6 F 01/22/17 06:14 Pulse Rate 81 01/22/17 06:14 Respiratory Rate 18 01/22/17 06:14 Blood Pressure 117/79 01/22/17 06:14 O2 Sat by Pulse Oximetry (%) 98 01/22/17 06:14 Constitutional: Yes: Well Nourished, No Distress, Calm, Thin Eyes: Yes: WNL, Conjunctiva Clear, EOM Intact HENT: Yes: WNL, Atraumatic, Normocephalic Neck: Yes: WNL, Supple, Trachea Midline Cardiovascular: Yes: WNL, Regular Rate and Rhythm, S1, S2 Respiratory: Yes: WNL, Regular, CTA Bilaterally Gastrointestinal: Yes: WNL, Normal Bowel Sounds, Soft ...Rectal Exam: Yes: Deferred Renal/: Yes: WNL Breast(s): Yes: WNL Musculoskeletal: Yes: WNL Extremities: Yes: WNL Edema: No Peripheral Pulses WNL: Yes Integumentary: Yes: WNL Neurological: Yes: WNL, Alert, Oriented ...Motor Strength: WNL Psychiatric: Yes: WNL, Alert, Oriented Labs: reviewed 12/20/16 Imaging - Results EKG: Image Reviewed, Other (nsr no ischemic changes) Assessment/Plan pt is a 36 y/o male that presents for ect, pt has received ect in the past and denies any adverse reaction to anesthesia labs and ekg reviewed pt is low risk for procedure informed consent, risk/benefits to be obtained by Dr Bundy
[2017-01-22] MEDS ORDERED: KETAMINE HCL 500 MG/10 ML VIAL ONE (07:27)
[2017-01-22 08:57] VITALS: BP 131/88; PULSE 88
== END 2017-01-22 09:20 | disposition home or self-care (01) ==
LOC: FECT 05:38
PROVIDERS: ATTEND Psychiatry & Neurology Psychiatry
PROC: GZB4ZZZ Other Electroconvulsive Therapy (ICD-10-PCS; principal; 2017-01-22 08:00)
DX: F33.2 Major depressive disorder, recurrent severe without psychotic features (principal)
CPT/HCPCS: 90870; 94760

== ENCOUNTER 2017-01-29 05:38 | Day surgery (SDC) | payer OTHER ==
[2017-01-22 17:57] VITALS: BMI 20.9
[2017-01-29 08:35] VITALS: BP 138/88; PULSE 88; TEMP 97.6
== END 2017-01-29 08:45 | disposition home or self-care (01) ==
LOC: FECT 05:38
PROVIDERS: ATTEND Psychiatry & Neurology Psychiatry
PROC: GZB4ZZZ Other Electroconvulsive Therapy (ICD-10-PCS; principal; 2017-01-29 08:00)
DX: F33.2 Major depressive disorder, recurrent severe without psychotic features (principal)
CPT/HCPCS: 90870; 94760

== ENCOUNTER 2017-02-05 05:40 | Day surgery (SDC) | payer OTHER ==
[2017-01-30 10:38] VITALS: BMI 20.9
[2017-02-05] MEDS ORDERED: KETAMINE HCL 500 MG/10 ML VIAL ONE (07:16)
[2017-02-05] MEDS ORDERED: LACTATED RINGERS SOLUTION 1,000 ML IV SCH (08:15)
[2017-02-05 09:04] VITALS: TEMP 97.6
[2017-02-05 09:05] VITALS: BP 136/90; PULSE 88
== END 2017-02-05 09:00 | disposition home or self-care (01) ==
LOC: FECT 05:40
PROVIDERS: ATTEND Psychiatry & Neurology Psychiatry
PROC: GZB4ZZZ Other Electroconvulsive Therapy (ICD-10-PCS; principal; 2017-02-05 08:00)
DX: F33.2 Major depressive disorder, recurrent severe without psychotic features (principal)
CPT/HCPCS: 90870; 94760

== ENCOUNTER 2017-02-12 05:40 | Day surgery (SDC) | payer OTHER ==
[2017-02-06 09:30] VITALS: BMI 20.9
[2017-02-12 08:26] VITALS: BP 123/66; PULSE 62; TEMP 97.5
== END 2017-02-12 08:31 | disposition home or self-care (01) ==
LOC: FECT 05:40
PROVIDERS: ATTEND Psychiatry & Neurology Psychiatry
PROC: GZB4ZZZ Other Electroconvulsive Therapy (ICD-10-PCS; principal; 2017-02-12 08:30)
DX: F33.2 Major depressive disorder, recurrent severe without psychotic features (principal)
CPT/HCPCS: 90870; 94760

== ENCOUNTER 2017-02-19 05:42 | Day surgery (SDC) | payer OTHER ==
[2017-02-13 09:21] VITALS: BMI 20.9
[2017-02-19 06:37] VITALS: TEMP 97.9
[2017-02-19 08:59] VITALS: BP 134/89; PULSE 73
== END 2017-02-19 09:00 | disposition home or self-care (01) ==
LOC: FECT 05:42
PROVIDERS: ATTEND Psychiatry & Neurology Psychiatry
PROC: GZB4ZZZ Other Electroconvulsive Therapy (ICD-10-PCS; principal; 2017-02-19 08:00)
DX: F33.2 Major depressive disorder, recurrent severe without psychotic features (principal)
CPT/HCPCS: 90870; 94760

== ENCOUNTER 2017-02-26 05:38 | Day surgery (SDC) | payer OTHER ==
[2017-02-21 11:56] VITALS: BMI 20.9
--- NOTE | 2017-02-26 07:10 | HP ---
Admitting History and Physical - Admission History of Present Illness: patient is a 36 y/o male with a past medical history of depression, anxiety, and schizophrenia. Patient presents for ect his last ect was 02/19/17. He reports ongoing depression since decreasing his ect to once a week. 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 He reports sleeping throughout the day. He denies any suicidal or homicidal ideation, visual or auditory hallucinations. He denies any recent illnesses or hospitalizations. Patient does reports compliance with prescribed medications. History Source: Patient - Past Medical History Psych: Yes: Anxiety, Depression, Schizophrenia - Smoking History Smoking history: Current every day smoker Have you smoked in the past 12 months: Yes Aproximately how many cigarettes per day: 2 - Alcohol/Substance Use Hx Alcohol Use: No (SOBER DATE 03/04/16) - Social History ADL: Independent History of Recent Travel: No Home Medications - Allergies Allergies/Adverse Reactions: Allergies Allergy/AdvReac Type Severity Reaction Status Date / Time No Known Drug Allergies Allergy Verified 02/05/17 06:00 - Home Medications Home Medications: Ambulatory Orders Clozapine [Clozapine Odt] 100 mg PO ASDIR 01/07/14 Clozapine [Clozapine Odt] 600 mg PO HS 01/07/14 Bupropion HCl [Wellbutrin Xl] 300 mg PO DAILY 07/02/16 Esomeprazole Magnesium 40 mg PO DAILY 07/02/16 Levetiracetam [Keppra Xr -] 1,000 mg PO BID 07/02/16 Metoprolol Succinate [Toprol XL -] 12.5 mg PO BID 07/02/16 Sucralfate [Carafate -] 1 gm PO QID 07/02/16 Trazodone HCl [Desyrel -] 300 mg PO HS 07/02/16 Potassium Chloride [Klor-Con] 20 meq PO DAILY 07/03/16 Risperidone [Risperdal] 2 mg PO BID 07/11/16 Varenicline Tartrate [Chantix] 1 mg PO BID 10/30/16 Clozapine [Clozapine Odt] 100 mg PO DAILY 02/19/17 Family Disease History - Family Disease History Family History: Unremarkable Review of Systems - Review of Systems Constitutional: reports: No Symptoms Eyes: reports: No Symptoms HENT: reports: No Symptoms Neck: reports: No Symptoms Cardiovascular: reports: No Symptoms Respiratory: reports: No Symptoms Gastrointestinal: reports: No Symptoms Genitourinary: reports: No Symptoms Musculoskeletal: reports: No Symptoms Integumentary: reports: No Symptoms Neurological: reports: No Symptoms Endocrine: reports: No Symptoms Hematology/Lymphatic: reports: No Symptoms Psychiatric: reports: No Symptoms Physical Examination Constitutional: Yes: Well Nourished, No Distress, Calm Eyes: Yes: WNL, Conjunctiva Clear, EOM Intact HENT: Yes: WNL, Atraumatic, Normocephalic Neck: Yes: WNL, Supple, Trachea Midline Cardiovascular: Yes: WNL, Regular Rate and Rhythm, S1, S2 Respiratory: Yes: WNL, Regular, CTA Bilaterally Gastrointestinal: Yes: WNL, Normal Bowel Sounds, Soft ...Rectal Exam: Yes: Deferred Renal/: Yes: WNL Breast(s): Yes: WNL Musculoskeletal: Yes: WNL Extremities: Yes: WNL Edema: No Peripheral Pulses WNL: Yes Peripheral Pulses: Left Radial: 4+, Right Radial: 4+, Left Doralis Pedis: 3+, Right Dorsalis Pedis: 3+, Left Femoral: 3+, Right Femoral: 3+ Neurological: Yes: WNL, Alert, Oriented ...Motor Strength: WNL Psychiatric: Yes: WNL, Alert, Oriented Labs: reviewed 12/29 Imaging - Results EKG: Other (nsr no ischemic changes) Assessment/Plan pt is a 36 y/o male that presents for ect, labs and ekg reviewed pt is medically optimized for procedure.
[2017-02-26] MEDS ORDERED: LACTATED RINGERS SOLUTION 1,000 ML IV SCH (07:15)
[2017-02-26] MEDS ORDERED: KETAMINE HCL 500 MG/10 ML VIAL ONE (07:53)
[2017-02-26 09:15] VITALS: TEMP 97.4
[2017-02-26 09:58] VITALS: BP 132/88; PULSE 82
== END 2017-02-26 09:59 | disposition home or self-care (01) ==
LOC: FECT 05:38
PROVIDERS: ATTEND Psychiatry & Neurology Psychiatry
PROC: GZB4ZZZ Other Electroconvulsive Therapy (ICD-10-PCS; principal; 2017-02-26 07:45)
DX: F33.2 Major depressive disorder, recurrent severe without psychotic features (principal)
CPT/HCPCS: 90870; 94760

== ENCOUNTER 2017-02-28 05:46 | Day surgery (SDC) | payer OTHER ==
[2017-02-27 14:38] VITALS: BMI 20.9
[2017-02-28 08:32] VITALS: TEMP 97.5
[2017-02-28 08:58] VITALS: BP 141/84; PULSE 86
[2017-02-28] MEDS ORDERED: LACTATED RINGERS SOLUTION 1,000 ML IV SCH (09:45)
== END 2017-02-28 09:15 | disposition home or self-care (01) ==
LOC: FECT 05:46
PROVIDERS: ATTEND Psychiatry & Neurology Psychiatry
PROC: GZB4ZZZ Other Electroconvulsive Therapy (ICD-10-PCS; principal; 2017-02-28 08:15)
DX: F33.2 Major depressive disorder, recurrent severe without psychotic features (principal)
CPT/HCPCS: 90870; 94760

== ENCOUNTER 2017-03-05 05:37 | Day surgery (SDC) | payer OTHER ==
[2017-02-28 15:35] VITALS: BMI 20.9
[2017-03-05] MEDS ORDERED: KETAMINE HCL 500 MG/10 ML VIAL ONE (07:20)
[2017-03-05 08:19] VITALS: TEMP 98.2
[2017-03-05 08:49] VITALS: BP 122/78; PULSE 80
== END 2017-03-05 08:51 | disposition home or self-care (01) ==
LOC: FECT 05:37
PROVIDERS: ATTEND Psychiatry & Neurology Psychiatry
PROC: GZB4ZZZ Other Electroconvulsive Therapy (ICD-10-PCS; principal; 2017-03-05 07:00)
DX: F33.2 Major depressive disorder, recurrent severe without psychotic features (principal)
CPT/HCPCS: 90870; 94760

== ENCOUNTER 2017-03-12 05:45 | Day surgery (SDC) | payer OTHER ==
[2017-03-07 08:03] VITALS: BMI 20.9
[2017-03-12 06:14] VITALS: TEMP 97.8
[2017-03-12] MEDS ORDERED: KETAMINE HCL 500 MG/10 ML VIAL ONE (06:51)
[2017-03-12 08:30] VITALS: BP 138/91; PULSE 94
== END 2017-03-12 09:52 | disposition home or self-care (01) ==
LOC: FECT 05:45
PROVIDERS: ATTEND Psychiatry & Neurology Psychiatry
PROC: GZB4ZZZ Other Electroconvulsive Therapy (ICD-10-PCS; principal; 2017-03-12 07:45)
DX: F33.2 Major depressive disorder, recurrent severe without psychotic features (principal)
CPT/HCPCS: 90870; 94760

== ENCOUNTER 2017-03-22 05:53 | Day surgery (SDC) | payer OTHER ==
[2017-03-13 09:19] VITALS: BMI 20.9
[2017-03-22 08:10] VITALS: TEMP 97.7
[2017-03-22 08:30] VITALS: BP 139/93; PULSE 96
[2017-03-22] MEDS ORDERED: LACTATED RINGERS SOLUTION 1,000 ML IV SCH (09:15)
== END 2017-03-22 09:00 | disposition home or self-care (01) ==
LOC: FECT 05:53
PROVIDERS: ATTEND Psychiatry & Neurology Psychiatry
PROC: GZB4ZZZ Other Electroconvulsive Therapy (ICD-10-PCS; principal; 2017-03-22 07:45)
DX: F33.2 Major depressive disorder, recurrent severe without psychotic features (principal)
CPT/HCPCS: 90870; 94760

== ENCOUNTER 2017-03-28 06:06 | Day surgery (SDC) | payer OTHER ==
[2017-03-28 07:49] VITALS: BMI 23.3
[2017-03-28 10:00] VITALS: BP 133/93; TEMP 97.6
[2017-03-28 10:02] VITALS: PULSE 88
== END 2017-03-28 09:45 | disposition home or self-care (01) ==
LOC: FECT 06:06
PROVIDERS: ATTEND Psychiatry & Neurology Psychiatry
PROC: GZB4ZZZ Other Electroconvulsive Therapy (ICD-10-PCS; principal; 2017-03-28 08:45)
DX: F33.2 Major depressive disorder, recurrent severe without psychotic features (principal)
CPT/HCPCS: 90870; 94760

== ENCOUNTER 2017-04-04 05:41 | Day surgery (SDC) | payer OTHER ==
[2017-04-02 08:48] VITALS: BMI 23.3
[2017-04-04] MEDS ORDERED: ONDANSETRON 4 MG/2 ML VIAL IVPUSH PRN (07:07)
--- NOTE | 2017-04-04 07:09 | HP ---
Admitting History and Physical - Admission History of Present Illness: patient is a 36 y/o male with a past medical history of depression, anxiety and scizophrenia. Patient presents for ect, his last ect was 03/22/17. He reports hearing voices that are telling to him to jump in front of a train. Patient reports speaking to Dr Bundy yesterday and as a result his ect sessions have been increased. Patient denies any changes in medications. He denies any recent coughs, colds or fevers. History Source: Patient Limitations to Obtaining History: No Limitations - Past Medical History Psych: Yes: Anxiety, Depression, Schizophrenia - Smoking History Smoking history: Current every day smoker Have you smoked in the past 12 months: Yes Aproximately how many cigarettes per day: 2 - Alcohol/Substance Use Hx Alcohol Use: No (SOBER DATE 03/04/16) - Social History ADL: Independent History of Recent Travel: No Home Medications - Allergies Allergies/Adverse Reactions: Allergies Allergy/AdvReac Type Severity Reaction Status Date / Time No Known Drug Allergies Allergy Verified 02/26/17 07:12 - Home Medications Home Medications: Ambulatory Orders Clozapine [Clozapine Odt] 100 mg PO ASDIR 01/07/14 Clozapine [Clozapine Odt] 600 mg PO HS 01/07/14 Bupropion HCl [Wellbutrin Xl] 300 mg PO DAILY 07/02/16 Esomeprazole Magnesium 40 mg PO DAILY 07/02/16 Levetiracetam [Keppra Xr -] 1,000 mg PO BID 07/02/16 Metoprolol Succinate [Toprol XL -] 12.5 mg PO BID 07/02/16 Sucralfate [Carafate -] 1 gm PO QID 07/02/16 Trazodone HCl [Desyrel -] 300 mg PO HS 07/02/16 Potassium Chloride [Klor-Con] 20 meq PO DAILY 07/03/16 Risperidone [Risperdal] 2 mg PO BID 07/11/16 Clozapine [Clozapine Odt] 100 mg PO DAILY 02/19/17 Family Disease History - Family Disease History Family History: Unremarkable Review of Systems - Review of Systems Constitutional: reports: No Symptoms Eyes: reports: No Symptoms HENT: reports: No Symptoms Neck: reports: No Symptoms Cardiovascular: reports: No Symptoms Respiratory: reports: No Symptoms Gastrointestinal: reports: No Symptoms Genitourinary: reports: No Symptoms Musculoskeletal: reports: No Symptoms Integumentary: reports: No Symptoms Neurological: reports: No Symptoms Endocrine: reports: No Symptoms Hematology/Lymphatic: reports: No Symptoms Psychiatric: reports: Hallucinations Physical Examination Vital Signs: Vital Signs Temperature 98.0 F 04/04/17 06:41 Pulse Rate 89 04/04/17 06:41 Respiratory Rate 18 04/04/17 06:41 Blood Pressure 115/78 04/04/17 06:41 O2 Sat by Pulse Oximetry (%) 97 04/04/17 06:41 Constitutional: Yes: Well Nourished, No Distress, Calm Eyes: Yes: WNL, Conjunctiva Clear, EOM Intact HENT: Yes: WNL, Atraumatic, Normocephalic Neck: Yes: WNL, Supple, Trachea Midline Cardiovascular: Yes: WNL, Regular Rate and Rhythm, S1, S2 Respiratory: Yes: WNL, Regular, CTA Bilaterally Gastrointestinal: Yes: WNL, Normal Bowel Sounds, Soft ...Rectal Exam: Yes: Deferred Renal/: Yes: WNL Musculoskeletal: Yes: WNL Extremities: Yes: WNL Edema: No Peripheral Pulses WNL: Yes Peripheral Pulses: Left Radial: 4+, Right Radial: 4+, Left Doralis Pedis: 3+, Right Dorsalis Pedis: 3+, Left Femoral: 3+, Right Femoral: 3+ Integumentary: Yes: WNL Neurological: Yes: WNL, Alert, Oriented ...Motor Strength: WNL Psychiatric: Yes: WNL, Alert, Oriented Labs: reviewed 12/29 Imaging - Results EKG: Image Reviewed, Other (nsr no ischemic changes) Assessment/Plan patient is 36 y/o male that presents for ect, labs and ekg reviewed pt is medically optimized for procedure informed consent, risks/benefits to be obtained by Dr Bundy
[2017-04-04] MEDS ORDERED: KETAMINE HCL 500 MG/10 ML VIAL ONE (07:13)
[2017-04-04] MEDS ORDERED: LACTATED RINGERS SOLUTION 1,000 ML IV SCH (07:15)
[2017-04-04 08:46] VITALS: TEMP 97.5
[2017-04-04 08:47] VITALS: BP 133/87; PULSE 89
== END 2017-04-04 08:45 | disposition home or self-care (01) ==
LOC: FECT 05:41
PROVIDERS: ATTEND Psychiatry & Neurology Psychiatry
PROC: GZB4ZZZ Other Electroconvulsive Therapy (ICD-10-PCS; principal; 2017-04-04 07:00)
DX: F33.2 Major depressive disorder, recurrent severe without psychotic features (principal)
CPT/HCPCS: 90870; 94760

== ENCOUNTER 2017-04-09 05:40 | Day surgery (SDC) | payer OTHER ==
[2017-04-04 10:37] VITALS: BMI 23.3
[2017-04-09 06:14] VITALS: TEMP 97.5
[2017-04-09 08:26] VITALS: BP 133/88; PULSE 89
== END 2017-04-09 08:35 | disposition home or self-care (01) ==
LOC: FECT 05:40
PROVIDERS: ATTEND Psychiatry & Neurology Psychiatry
PROC: GZB4ZZZ Other Electroconvulsive Therapy (ICD-10-PCS; principal; 2017-04-09 07:00)
DX: F33.2 Major depressive disorder, recurrent severe without psychotic features (principal)
CPT/HCPCS: 90870; 94760

== ENCOUNTER 2017-04-16 05:40 | Day surgery (SDC) | payer OTHER ==
[2017-04-10 15:46] VITALS: BMI 23.3
[2017-04-16] MEDS ORDERED: KETAMINE HCL 500 MG/10 ML VIAL ONE (07:42)
[2017-04-16 08:41] VITALS: TEMP 98.2
[2017-04-16 10:05] VITALS: BP 130/88; PULSE 92
== END 2017-04-16 09:30 | disposition home or self-care (01) ==
LOC: FECT 05:40
PROVIDERS: ATTEND Psychiatry & Neurology Psychiatry
PROC: GZB4ZZZ Other Electroconvulsive Therapy (ICD-10-PCS; principal; 2017-04-16 07:45)
DX: F33.2 Major depressive disorder, recurrent severe without psychotic features (principal)
CPT/HCPCS: 90870; 94760

== ENCOUNTER 2017-04-23 05:38 | Day surgery (SDC) | payer OTHER ==
[2017-04-23 09:34] VITALS: TEMP 98.1
[2017-04-23 09:57] VITALS: BP 130/88; PULSE 88
== END 2017-04-23 10:00 | disposition home or self-care (01) ==
LOC: FECT 05:38
PROVIDERS: ATTEND Psychiatry & Neurology Psychiatry
PROC: GZB4ZZZ Other Electroconvulsive Therapy (ICD-10-PCS; principal; 2017-04-23 08:00)
DX: F33.2 Major depressive disorder, recurrent severe without psychotic features (principal)
CPT/HCPCS: 90870; 94760

== ENCOUNTER 2017-04-30 05:39 | Day surgery (SDC) | payer OTHER ==
[2017-04-30 06:16] VITALS: BMI 19.1
[2017-04-30] MEDS ORDERED: KETAMINE HCL 500 MG/10 ML VIAL ONE (07:08)
[2017-04-30] MEDS ORDERED: ONDANSETRON 4 MG/2 ML VIAL IVPUSH PRN (07:44)
[2017-04-30] MEDS ORDERED: oxyCODONE HCL 5 MG TABLET PO PRN (07:44)
[2017-04-30] MEDS ORDERED: LACTATED RINGERS SOLUTION 1,000 ML IV SCH (07:45)
[2017-04-30 08:08] VITALS: TEMP 98
[2017-04-30 08:43] VITALS: BP 125/84; PULSE 84
== END 2017-04-30 08:55 | disposition home or self-care (01) ==
LOC: FECT 05:39
PROVIDERS: ATTEND Psychiatry & Neurology Psychiatry
PROC: GZB4ZZZ Other Electroconvulsive Therapy (ICD-10-PCS; principal; 2017-04-30 07:15)
DX: F33.2 Major depressive disorder, recurrent severe without psychotic features (principal)
CPT/HCPCS: 90870; 94760

== ENCOUNTER 2017-05-06 05:41 | Day surgery (SDC) | payer OTHER ==
[2017-04-30 16:51] VITALS: BMI 19.1
--- NOTE | 2017-05-06 06:57 | HP ---
Admitting History and Physical - Admission History of Present Illness: Patient is a 36 y/o male with a past medical history of depression, anxiety, and schizophrenia. Patient presents for ect his last ect was 04/30/17. He reports feeling much improved since starting ECT. Patient denies any changes in medications. He denies any recent illnesses or hospitalizations. Patient denies any suicidal or homicidal ideation, visual or auditory hallucinations. History Source: Patient Limitations to Obtaining History: No Limitations - Past Medical History Psych: Yes: Anxiety, Depression, Schizophrenia - Smoking History Smoking history: Current every day smoker Have you smoked in the past 12 months: Yes Aproximately how many cigarettes per day: 2 - Alcohol/Substance Use Hx Alcohol Use: No (SOBER DATE 03/04/16) - Social History ADL: Independent History of Recent Travel: No Home Medications - Allergies Allergies/Adverse Reactions: Allergies Allergy/AdvReac Type Severity Reaction Status Date / Time No Known Drug Allergies Allergy Verified 04/30/17 16:45 - Home Medications Home Medications: Ambulatory Orders Clozapine [Clozapine Odt] 100 mg PO ASDIR 01/07/14 Clozapine [Clozapine Odt] 600 mg PO HS 01/07/14 Bupropion HCl [Wellbutrin Xl] 300 mg PO DAILY 07/02/16 Esomeprazole Magnesium 40 mg PO DAILY 07/02/16 Levetiracetam [Keppra Xr -] 1,000 mg PO BID 07/02/16 Metoprolol Succinate [Toprol XL -] 12.5 mg PO BID 07/02/16 Sucralfate [Carafate -] 1 gm PO QID 07/02/16 Trazodone HCl [Desyrel -] 300 mg PO HS 07/02/16 Potassium Chloride [Klor-Con] 20 meq PO DAILY 07/03/16 Risperidone [Risperdal] 2 mg PO BID 07/11/16 Clozapine [Clozapine Odt] 100 mg PO DAILY 02/19/17 Family Disease History - Family Disease History Family History: Unremarkable Review of Systems - Review of Systems Constitutional: reports: No Symptoms Eyes: reports: No Symptoms HENT: reports: No Symptoms Neck: reports: No Symptoms Cardiovascular: reports: No Symptoms Respiratory: reports: No Symptoms Gastrointestinal: reports: No Symptoms Genitourinary: reports: No Symptoms Musculoskeletal: reports: No Symptoms Integumentary: reports: No Symptoms Neurological: reports: No Symptoms Endocrine: reports: No Symptoms Hematology/Lymphatic: reports: No Symptoms Psychiatric: reports: No Symptoms Physical Examination Vital Signs: Vital Signs Temperature 97.8 F 05/06/17 05:56 Pulse Rate 83 05/06/17 05:56 Respiratory Rate 18 05/06/17 05:56 Blood Pressure 123/78 05/06/17 05:56 O2 Sat by Pulse Oximetry (%) 100 05/06/17 05:56 Constitutional: Yes: Well Nourished, No Distress, Calm, Thin Eyes: Yes: WNL, Conjunctiva Clear, EOM Intact HENT: Yes: WNL, Atraumatic, Normocephalic Neck: Yes: WNL, Supple, Trachea Midline Cardiovascular: Yes: WNL, Regular Rate and Rhythm, S1, S2 Respiratory: Yes: WNL, Regular, CTA Bilaterally Gastrointestinal: Yes: WNL, Normal Bowel Sounds, Soft ...Rectal Exam: Yes: Deferred Renal/: Yes: WNL Breast(s): Yes: WNL Musculoskeletal: Yes: WNL Extremities: Yes: WNL Edema: No Peripheral Pulses WNL: Yes Peripheral Pulses: Left Radial: 4+, Right Radial: 4+, Left Doralis Pedis: 3+, Right Dorsalis Pedis: 3+, Left Femoral: 3+, Right Femoral: 3+ Integumentary: Yes: WNL Neurological: Yes: WNL, Alert, Oriented ...Motor Strength: WNL Psychiatric: Yes: WNL, Alert, Oriented Labs: reviewed 12/29 Imaging - Results EKG: Image Reviewed, Other Assessment/Plan patient is a 36 y/o male that presents for ect, labs and ekg reviewed pt is medically optimized for procedure informed consent, risks/benefits to be obtained by Dr Bundy
[2017-05-06] MEDS ORDERED: KETAMINE HCL 500 MG/10 ML VIAL ONE (07:19)
[2017-05-06 08:19] VITALS: TEMP 97.1
[2017-05-06 09:05] VITALS: BP 148/89; PULSE 73
== END 2017-05-06 09:07 | disposition home or self-care (01) ==
LOC: FECT 05:41
PROVIDERS: ATTEND Psychiatry & Neurology Psychiatry
PROC: GZB4ZZZ Other Electroconvulsive Therapy (ICD-10-PCS; principal; 2017-05-06 07:30)
DX: F33.2 Major depressive disorder, recurrent severe without psychotic features (principal)
CPT/HCPCS: 90870; 94760

== ENCOUNTER 2017-05-14 05:41 | Day surgery (SDC) | payer OTHER ==
[2017-05-14 06:20] VITALS: TEMP 97.5; BMI 19.0
[2017-05-14 09:15] VITALS: BP 134/90; PULSE 84
== END 2017-05-14 09:05 | disposition home or self-care (01) ==
LOC: FECT 05:41
PROVIDERS: ATTEND Psychiatry & Neurology Psychiatry
PROC: GZB4ZZZ Other Electroconvulsive Therapy (ICD-10-PCS; principal; 2017-05-14 07:15)
DX: F33.2 Major depressive disorder, recurrent severe without psychotic features (principal)
CPT/HCPCS: 90870; 94760

== ENCOUNTER 2017-05-27 05:44 | Day surgery (SDC) | payer OTHER ==
[2017-05-27 06:49] VITALS: BMI 18.8
[2017-05-27 09:00] VITALS: BP 133/88; PULSE 88; TEMP 98.2
[2017-05-27] MEDS ORDERED: ONDANSETRON 4 MG/2 ML VIAL IVPUSH PRN (13:06)
[2017-05-27] MEDS ORDERED: LACTATED RINGERS SOLUTION 1,000 ML IV SCH (13:15)
== END 2017-05-27 09:15 | disposition home or self-care (01) ==
LOC: FECT 05:44
PROVIDERS: ATTEND Psychiatry & Neurology Psychiatry
PROC: GZB4ZZZ Other Electroconvulsive Therapy (ICD-10-PCS; principal; 2017-05-27 07:45)
DX: F33.2 Major depressive disorder, recurrent severe without psychotic features (principal)
CPT/HCPCS: 90870; 94760

== ENCOUNTER 2017-06-04 05:41 | Day surgery (SDC) | payer OTHER ==
[2017-05-27 16:31] VITALS: BMI 18.7
[2017-06-04 06:11] VITALS: TEMP 97.5
[2017-06-04 08:31] VITALS: BP 126/88; PULSE 87
== END 2017-06-04 08:45 | disposition home or self-care (01) ==
LOC: FECT 05:41
PROVIDERS: ATTEND Psychiatry & Neurology Psychiatry
PROC: GZB4ZZZ Other Electroconvulsive Therapy (ICD-10-PCS; principal; 2017-06-04 07:15)
DX: F33.2 Major depressive disorder, recurrent severe without psychotic features (principal)
CPT/HCPCS: 90870; 94760

== ENCOUNTER 2017-06-11 05:44 | Day surgery (SDC) | payer OTHER ==
[2017-06-05 10:49] VITALS: BMI 18.7
--- NOTE | 2017-06-11 07:14 | HP ---
Admitting History and Physical - Admission History of Present Illness: patient is a 36 y/o male with a past medical history of depression, anxiety, and schizophrenia. Patient presents for ect, his last ect was 06/04/17. Patient reports feeling well, he reports an improvement in mood since starting ect. He denies any recent illnesses or hospitalizations. Patient denies any changes in medications. He denies any suicidal or homicidal ideation or visual or auditory hallucinations. History Source: Patient - Past Medical History Psych: Yes: Anxiety, Depression, Schizophrenia - Smoking History Smoking history: Current every day smoker Have you smoked in the past 12 months: Yes Aproximately how many cigarettes per day: 2 - Alcohol/Substance Use Hx Alcohol Use: No (SOBER DATE 03/04/16) History of Substance Use: reports: None - Social History Usual Living Arrangement: Yes: Other (has roommates) ADL: Independent History of Recent Travel: No Home Medications - Allergies Allergies/Adverse Reactions: Allergies Allergy/AdvReac Type Severity Reaction Status Date / Time No Known Drug Allergies Allergy Verified 04/30/17 16:45 - Home Medications Home Medications: Ambulatory Orders Clozapine [Clozapine Odt] 100 mg PO ASDIR 01/07/14 Clozapine [Clozapine Odt] 600 mg PO HS 01/07/14 Bupropion HCl [Wellbutrin Xl] 300 mg PO DAILY 07/02/16 Esomeprazole Magnesium 40 mg PO DAILY 07/02/16 Levetiracetam [Keppra Xr -] 1,000 mg PO BID 07/02/16 Metoprolol Succinate [Toprol XL -] 12.5 mg PO BID 07/02/16 Sucralfate [Carafate -] 1 gm PO QID 07/02/16 Trazodone HCl [Desyrel -] 300 mg PO HS 07/02/16 Potassium Chloride [Klor-Con] 20 meq PO DAILY 07/03/16 Risperidone [Risperdal] 2 mg PO BID 07/11/16 Clozapine [Clozapine Odt] 100 mg PO DAILY 02/19/17 Family Disease History - Family Disease History Family Disease History: Respiratory: Mother (copd), Other: Mother Review of Systems - Review of Systems Constitutional: reports: No Symptoms Eyes: reports: Photophobia HENT: reports: No Symptoms Neck: reports: No Symptoms Cardiovascular: reports: No Symptoms Respiratory: reports: No Symptoms Gastrointestinal: reports: No Symptoms Genitourinary: reports: No Symptoms Musculoskeletal: reports: No Symptoms Integumentary: reports: No Symptoms Neurological: reports: No Symptoms Endocrine: reports: No Symptoms Hematology/Lymphatic: reports: No Symptoms Psychiatric: reports: No Symptoms Physical Examination Constitutional: Yes: Well Nourished, No Distress, Calm Eyes: Yes: WNL, Conjunctiva Clear, EOM Intact HENT: Yes: WNL, Atraumatic, Normocephalic Neck: Yes: WNL, Supple, Trachea Midline Cardiovascular: Yes: WNL, Regular Rate and Rhythm, S1, S2 Respiratory: Yes: WNL, Regular, CTA Bilaterally Gastrointestinal: Yes: WNL, Normal Bowel Sounds, Soft ...Rectal Exam: Yes: Deferred Renal/: Yes: WNL Musculoskeletal: Yes: WNL Extremities: Yes: WNL Edema: No Peripheral Pulses WNL: Yes Peripheral Pulses: Left Radial: 4+, Right Radial: 4+, Left Doralis Pedis: 3+, Right Dorsalis Pedis: 3+, Left Femoral: 3+, Right Femoral: 3+ Integumentary: Yes: WNL Neurological: Yes: WNL, Alert, Oriented ...Motor Strength: WNL Psychiatric: Yes: WNL, Alert, Oriented Labs: reviewed 12/29 Imaging - Results EKG: Image Reviewed, Other (nsr) Assessment/Plan patient is a 36 y/o male that presents for ect, labs and ekg reviewed patient is medically optimized for procedure informed consent, risks/benefits to be obtained by Dr Bundy
[2017-06-11 09:58] VITALS: TEMP 97.8
[2017-06-11 10:07] VITALS: BP 132/88; PULSE 76
== END 2017-06-11 10:10 | disposition home or self-care (01) ==
LOC: FECT 05:44
PROVIDERS: ATTEND Psychiatry & Neurology Psychiatry
PROC: GZB4ZZZ Other Electroconvulsive Therapy (ICD-10-PCS; principal; 2017-06-11 07:30)
DX: F33.2 Major depressive disorder, recurrent severe without psychotic features (principal)
CPT/HCPCS: 90870; 94760

== ENCOUNTER 2017-06-18 05:40 | Day surgery (SDC) | payer OTHER ==
[2017-06-18 06:29] VITALS: BMI 18.7
[2017-06-18] MEDS ORDERED: KETAMINE HCL 500 MG/10 ML VIAL ONE (06:57)
[2017-06-18 08:13] VITALS: BP 129/88; PULSE 88; TEMP 98.1
[2017-06-18] MEDS ORDERED: ONDANSETRON 4 MG/2 ML VIAL IVPUSH PRN (11:34)
[2017-06-18] MEDS ORDERED: LACTATED RINGERS SOLUTION 1,000 ML IV SCH (11:45)
== END 2017-06-18 08:30 | disposition home or self-care (01) ==
LOC: FECT 05:40
PROVIDERS: ATTEND Psychiatry & Neurology Psychiatry
PROC: GZB4ZZZ Other Electroconvulsive Therapy (ICD-10-PCS; principal; 2017-06-18 07:15)
DX: F33.2 Major depressive disorder, recurrent severe without psychotic features (principal)
CPT/HCPCS: 90870; 94760

== ENCOUNTER 2017-06-25 05:44 | Day surgery (SDC) | payer OTHER ==
[2017-06-25 06:32] VITALS: BMI 18.7
[2017-06-25 07:08] LABS: BASO % 1.4 % (0-2.0); EOS % 11.3 % (0-4.5); MCH 31.1 pg (25.7-33.7); MCHC 33.6 g/dl (32.0-35.9); MEAN CELL VOLUME 92.5 fl (80-96); MEAN PLT VOLUME 7.7 fl (7.5-11.1); NEUT % 44.2 % (42.8-82.8); PLATELET COUNT 351 K/MM3 (134-434); RDW 13.1 % (11.9-15.9); WHITE BLOOD COUNT 10.6 K/mm3 (4.0-10.8)
[2017-06-25 07:18] LABS: ALBUMIN 4.5 g/dl (3.5-5.0); ALK PHOS 69 U/L (32-92); ANION GAP 6 (8-16); BILIRUBIN,TOTAL 0.4 mg/dl (0.2-1.0); CALCIUM 9.6 mg/dl (8.4-10.2); CO2 27 mmol/L (22-28); GLUCOSE,RANDOM 83 mg/dl (74-106); SGOT/AST 26 U/L (10-42); SGPT/ALT 22 U/L (10-40); TOT PROT 7.2 g/dl (6.4-8.3)
[2017-06-25] MEDS ORDERED: KETAMINE HCL 500 MG/10 ML VIAL ONE (07:38)
[2017-06-25 08:53] VITALS: TEMP 97.3
[2017-06-25 09:13] VITALS: BP 127/86; PULSE 86
--- NOTE | 2017-06-25 15:25 | EKG ---
Test Reason : Blood Pressure : / mmHG Vent. Rate : 081 BPM Atrial Rate : 081 BPM P-R Int : 166 ms QRS Dur : 090 ms QT Int : 376 ms P-R-T Axes : 071 077 069 degrees QTc Int : 436 ms NORMAL SINUS RHYTHM NORMAL ECG WHEN COMPARED WITH ECG OF 21-DEC-2016 08:02, NO SIGNIFICANT CHANGE WAS FOUND Confirmed by MD AIDAN, SUSHMA ([id number]) on 06/25/2017 3:25:19 PM Referred By: Fran Bundy Confirmed By:SUSHMA BERMUDEZ MD
== END 2017-06-25 09:10 | disposition home or self-care (01) ==
LOC: FECT 05:44
PROVIDERS: ATTEND Psychiatry & Neurology Psychiatry
PROC: GZB4ZZZ Other Electroconvulsive Therapy (ICD-10-PCS; principal; 2017-06-25 08:00)
DX: F33.2 Major depressive disorder, recurrent severe without psychotic features (principal)
CPT/HCPCS: 36415; 80053; 85025; 90870; 93005; 94760

== ENCOUNTER 2017-07-02 05:55 | Day surgery (SDC) | payer OTHER ==
[2017-06-26 13:57] VITALS: BMI 18.7
[2017-07-02 06:12] VITALS: TEMP 97.4
[2017-07-02] MEDS ORDERED: KETAMINE HCL 500 MG/10 ML VIAL ONE (07:03)
[2017-07-02 08:44] VITALS: BP 134/90; PULSE 87
== END 2017-07-02 08:45 | disposition home or self-care (01) ==
LOC: FECT 05:55
PROVIDERS: ATTEND Psychiatry & Neurology Psychiatry
PROC: GZB4ZZZ Other Electroconvulsive Therapy (ICD-10-PCS; principal; 2017-07-02 07:45)
DX: F33.2 Major depressive disorder, recurrent severe without psychotic features (principal)
CPT/HCPCS: 90870; 94760

== ENCOUNTER 2017-07-09 05:45 | Day surgery (SDC) | payer OTHER ==
[2017-07-03 15:20] VITALS: BMI 18.7
[2017-07-09] MEDS ORDERED: ACETAMINOPHEN 325 MG TABLET (FP) PO PRN (08:13)
[2017-07-09 08:38] VITALS: TEMP 97.9
[2017-07-09 09:04] VITALS: BP 125/85; PULSE 78
== END 2017-07-09 09:09 | disposition home or self-care (01) ==
LOC: FECT 05:45
PROVIDERS: ATTEND Psychiatry & Neurology Psychiatry
PROC: GZB4ZZZ Other Electroconvulsive Therapy (ICD-10-PCS; principal; 2017-07-09 07:45)
DX: F33.2 Major depressive disorder, recurrent severe without psychotic features (principal)
CPT/HCPCS: 90870; 94760

== ENCOUNTER 2017-07-17 05:43 | Day surgery (SDC) | payer OTHER ==
[2017-07-17 07:16] VITALS: BMI 18.8
--- NOTE | 2017-07-17 07:32 | HP ---
Admitting History and Physical - Admission History of Present Illness: Patient is a 36 y/o male with a past medical history of depression, anxiety, and scizophrenia. Patient presents for ect, his last ect was 07/09/17. Patient reports feeling well, he denies any recent illnesses or hospitalizations. Patient denies any suicidal or homicidal ideation, visual or auditory hallucinations. History Source: Patient Limitations to Obtaining History: No Limitations - Past Medical History Psych: Yes: Anxiety, Depression, Schizophrenia - Smoking History Smoking history: Current every day smoker Have you smoked in the past 12 months: Yes Aproximately how many cigarettes per day: 2 - Alcohol/Substance Use Hx Alcohol Use: No (SOBER DATE 03/04/16) History of Substance Use: reports: None - Social History ADL: Independent History of Recent Travel: No Home Medications - Allergies Allergies/Adverse Reactions: Allergies Allergy/AdvReac Type Severity Reaction Status Date / Time No Known Drug Allergies Allergy Verified 04/30/17 16:45 - Home Medications Home Medications: Ambulatory Orders Clozapine [Clozapine Odt] 100 mg PO ASDIR 01/07/14 Clozapine [Clozapine Odt] 600 mg PO HS 01/07/14 Bupropion HCl [Wellbutrin Xl] 300 mg PO DAILY 07/02/16 Esomeprazole Magnesium 40 mg PO DAILY 07/02/16 Levetiracetam [Keppra Xr -] 1,000 mg PO BID 07/02/16 Metoprolol Succinate [Toprol XL -] 12.5 mg PO BID 07/02/16 Sucralfate [Carafate -] 1 gm PO QID 07/02/16 Trazodone HCl [Desyrel -] 300 mg PO HS 07/02/16 Potassium Chloride [Klor-Con] 20 meq PO DAILY 07/03/16 Risperidone [Risperdal] 2 mg PO BID 07/11/16 Clozapine [Clozapine Odt] 100 mg PO DAILY 02/19/17 Family Disease History - Family Disease History Family Disease History: Respiratory: Mother (copd), Other: Mother Review of Systems - Review of Systems Constitutional: reports: No Symptoms Eyes: reports: No Symptoms HENT: reports: No Symptoms Neck: reports: No Symptoms Cardiovascular: reports: No Symptoms Respiratory: reports: No Symptoms Gastrointestinal: reports: No Symptoms Genitourinary: reports: No Symptoms Musculoskeletal: reports: No Symptoms Integumentary: reports: No Symptoms Neurological: reports: No Symptoms Endocrine: reports: No Symptoms Hematology/Lymphatic: reports: No Symptoms Psychiatric: reports: No Symptoms Physical Examination Vital Signs: Vital Signs Temperature 97.5 F L 07/17/17 07:12 Pulse Rate 90 07/17/17 07:12 Respiratory Rate 18 07/17/17 07:12 Blood Pressure 114/74 07/17/17 07:12 O2 Sat by Pulse Oximetry (%) 100 07/17/17 07:12 Constitutional: Yes: Well Nourished, No Distress, Calm, Thin Eyes: Yes: WNL, Conjunctiva Clear, EOM Intact HENT: Yes: WNL, Atraumatic, Normocephalic Neck: Yes: WNL, Supple, Trachea Midline Cardiovascular: Yes: WNL, Regular Rate and Rhythm, S1, S2 Respiratory: Yes: WNL, Regular, CTA Bilaterally Gastrointestinal: Yes: WNL, Normal Bowel Sounds, Soft ...Rectal Exam: Yes: Deferred Renal/: Yes: WNL Breast(s): Yes: WNL Musculoskeletal: Yes: WNL Extremities: Yes: WNL Edema: No Peripheral Pulses WNL: Yes Peripheral Pulses: Left Radial: 4+, Right Radial: 4+, Left Doralis Pedis: 3+, Right Dorsalis Pedis: 3+, Left Femoral: 3+, Right Femoral: 3+ Integumentary: Yes: WNL Neurological: Yes: WNL, Alert, Oriented ...Motor Strength: WNL Psychiatric: Yes: WNL, Alert, Oriented Labs: reviewed 06/30/17 Imaging - Results EKG: Image Reviewed, Other (nsr) Assessment/Plan patient is a 36 y/o male that presents for ect, labs and ekg reviewed patient is medically optimized for procedure informed consent, risks/benefits to be obtained by Dr Bundy
[2017-07-17] MEDS ORDERED: LACTATED RINGERS SOLUTION 1,000 ML IV SCH (07:45)
[2017-07-17 09:12] VITALS: PULSE 91; TEMP 97.3
[2017-07-17 09:57] VITALS: BP 131/91
== END 2017-07-17 09:50 | disposition home or self-care (01) ==
LOC: FECT 05:43
PROVIDERS: ATTEND Psychiatry & Neurology Psychiatry
PROC: GZB4ZZZ Other Electroconvulsive Therapy (ICD-10-PCS; principal; 2017-07-17 08:15)
DX: F33.2 Major depressive disorder, recurrent severe without psychotic features (principal)
CPT/HCPCS: 90870; 94760

== ENCOUNTER 2017-07-23 05:47 | Day surgery (SDC) | payer OTHER ==
[2017-07-23 06:46] VITALS: BMI 18.8
[2017-07-23] MEDS ORDERED: KETAMINE HCL 500 MG/10 ML VIAL ONE (07:36)
[2017-07-23 08:48] VITALS: TEMP 98.8
[2017-07-23 09:57] VITALS: BP 130/86; PULSE 92
== END 2017-07-23 09:40 | disposition home or self-care (01) ==
LOC: FECT 05:47
PROVIDERS: ATTEND Psychiatry & Neurology Psychiatry
PROC: GZB4ZZZ Other Electroconvulsive Therapy (ICD-10-PCS; principal; 2017-07-23 08:15)
DX: F33.2 Major depressive disorder, recurrent severe without psychotic features (principal)
CPT/HCPCS: 90870; 94760

== ENCOUNTER 2017-07-30 05:43 | Day surgery (SDC) | payer OTHER ==
[2017-07-30 06:16] VITALS: BMI 18.7
[2017-07-30] MEDS ORDERED: oxyCODONE HCL 5 MG TABLET PO PRN (07:23)
[2017-07-30 07:56] VITALS: TEMP 97.5
[2017-07-30 09:03] VITALS: BP 122/80; PULSE 86
== END 2017-07-30 09:00 | disposition home or self-care (01) ==
LOC: FECT 05:43
PROVIDERS: ATTEND Psychiatry & Neurology Psychiatry
PROC: GZB4ZZZ Other Electroconvulsive Therapy (ICD-10-PCS; principal; 2017-07-30 07:45)
DX: F33.2 Major depressive disorder, recurrent severe without psychotic features (principal)
CPT/HCPCS: 90870; 94760

== ENCOUNTER 2017-08-06 05:40 | Day surgery (SDC) | payer OTHER ==
[2017-08-02 13:50] VITALS: BMI 18.7
[2017-08-06 06:30] VITALS: TEMP 98
[2017-08-06] MEDS ORDERED: KETAMINE HCL 500 MG/10 ML VIAL ONE (07:31)
[2017-08-06] MEDS ORDERED: ONDANSETRON 4 MG/2 ML VIAL IVPUSH PRN (08:37)
[2017-08-06] MEDS ORDERED: PROMETHAZINE HCL 25 MG/1 ML VIAL IVPUSH PRN (08:37)
[2017-08-06] MEDS ORDERED: ACETAMINOPHEN 325 MG TABLET (FP) PO PRN (08:37)
[2017-08-06] MEDS ORDERED: LACTATED RINGERS SOLUTION 1,000 ML IV SCH (08:45)
[2017-08-06 08:55] VITALS: BP 124/88; PULSE 88
== END 2017-08-06 09:00 | disposition home or self-care (01) ==
LOC: FECT 05:40
PROVIDERS: ATTEND Psychiatry & Neurology Psychiatry
PROC: GZB4ZZZ Other Electroconvulsive Therapy (ICD-10-PCS; principal; 2017-08-06 07:30)
DX: F33.2 Major depressive disorder, recurrent severe without psychotic features (principal)
CPT/HCPCS: 90870; 94760

== ENCOUNTER 2017-08-13 05:44 | Day surgery (SDC) | payer OTHER ==
[2017-08-13 06:34] VITALS: BMI 19.0
[2017-08-13] MEDS ORDERED: KETAMINE HCL 500 MG/10 ML VIAL ONE (07:14)
[2017-08-13] MEDS ORDERED: ACETAMINOPHEN 325 MG TABLET (FP) PO PRN (08:02)
[2017-08-13 08:17] VITALS: TEMP 97.6
[2017-08-13 09:01] VITALS: BP 130/87; PULSE 88
== END 2017-08-13 08:45 | disposition home or self-care (01) ==
LOC: FECT 05:44
PROVIDERS: ATTEND Psychiatry & Neurology Psychiatry
PROC: GZB4ZZZ Other Electroconvulsive Therapy (ICD-10-PCS; principal; 2017-08-13 07:45)
DX: F33.2 Major depressive disorder, recurrent severe without psychotic features (principal)
CPT/HCPCS: 90870; 94760

== ENCOUNTER 2017-08-20 05:56 | Day surgery (SDC) | payer OTHER ==
[2017-08-13 12:43] VITALS: BMI 19.0
[2017-08-20 07:03] VITALS: TEMP 97.8
--- NOTE | 2017-08-20 07:15 | HP ---
Admitting History and Physical - Admission History of Present Illness: Patient is a 36 y/o male with a past medical history of depression, anxiety and scizophrenia. Patient presents for ect, his last ect was 08/13/17. Patient reports feeling much improved since starting ect, he denies any changes in medications. Patient denies any recent illnesses or hospitalizations. History Source: Patient Limitations to Obtaining History: No Limitations - Past Medical History Psych: Yes: Anxiety, Depression, Schizophrenia - Smoking History Smoking history: Current every day smoker Have you smoked in the past 12 months: Yes Aproximately how many cigarettes per day: 2 - Alcohol/Substance Use Hx Alcohol Use: Yes (SOBER DATE 03/04/16) History of Substance Use: reports: None - Social History Usual Living Arrangement: Yes: Other (usp setting) ADL: Independent History of Recent Travel: No Home Medications - Allergies Allergies/Adverse Reactions: Allergies Allergy/AdvReac Type Severity Reaction Status Date / Time No Known Drug Allergies Allergy Verified 04/30/17 16:45 - Home Medications Home Medications: Ambulatory Orders Clozapine [Clozapine Odt] 100 mg PO ASDIR 01/07/14 Clozapine [Clozapine Odt] 600 mg PO HS 01/07/14 Bupropion HCl [Wellbutrin Xl] 300 mg PO DAILY 07/02/16 Esomeprazole Magnesium 40 mg PO DAILY 07/02/16 Levetiracetam [Keppra Xr -] 1,000 mg PO BID 07/02/16 Metoprolol Succinate [Toprol XL -] 12.5 mg PO BID 07/02/16 Sucralfate [Carafate -] 1 gm PO QID 07/02/16 Trazodone HCl [Desyrel -] 300 mg PO HS 07/02/16 Potassium Chloride [Klor-Con] 20 meq PO DAILY 07/03/16 Risperidone [Risperdal] 2 mg PO BID 07/11/16 Clozapine [Clozapine Odt] 100 mg PO DAILY 02/19/17 Family Disease History - Family Disease History Family Disease History: Respiratory: Mother (copd), Other: Mother Review of Systems - Review of Systems Constitutional: reports: No Symptoms Eyes: reports: No Symptoms HENT: reports: No Symptoms Neck: reports: No Symptoms Cardiovascular: reports: No Symptoms Respiratory: reports: No Symptoms Gastrointestinal: reports: No Symptoms Genitourinary: reports: No Symptoms Musculoskeletal: reports: No Symptoms Integumentary: reports: No Symptoms Endocrine: reports: No Symptoms Hematology/Lymphatic: reports: No Symptoms Psychiatric: reports: No Symptoms Physical Examination Vital Signs: Vital Signs Temperature 97.8 F 08/20/17 06:57 Pulse Rate 89 08/20/17 06:57 Respiratory Rate 18 08/20/17 06:57 Blood Pressure 121/74 08/20/17 06:57 O2 Sat by Pulse Oximetry (%) 100 08/20/17 06:57 Constitutional: Yes: Well Nourished, No Distress, Calm Eyes: Yes: WNL, Conjunctiva Clear, EOM Intact HENT: Yes: WNL, Atraumatic, Normocephalic Neck: Yes: WNL, Supple, Trachea Midline Cardiovascular: Yes: WNL, Regular Rate and Rhythm Respiratory: Yes: WNL, Regular, CTA Bilaterally Gastrointestinal: Yes: WNL, Normal Bowel Sounds, Soft ...Rectal Exam: Yes: Deferred Renal/: Yes: WNL Breast(s): Yes: WNL Musculoskeletal: Yes: WNL Extremities: Yes: WNL Edema: No Peripheral Pulses WNL: Yes Peripheral Pulses: Left Radial: 4+, Right Radial: 4+, Left Doralis Pedis: 3+, Right Dorsalis Pedis: 3+, Left Femoral: 3+, Right Femoral: 3+ Integumentary: Yes: WNL Neurological: Yes: WNL, Alert, Oriented ...Motor Strength: WNL Psychiatric: Yes: WNL, Alert, Oriented Labs: reviewed 06/30 Imaging - Results EKG: Other (nsr) Assessment/Plan patient is a 36 y/o male that presents for ect, labs and ekg reviewed patient is medically optimized for procedure
[2017-08-20] MEDS ORDERED: KETAMINE HCL 500 MG/10 ML VIAL ONE (08:12)
[2017-08-20 09:16] VITALS: BP 138/88; PULSE 98
== END 2017-08-20 09:40 | disposition home or self-care (01) ==
LOC: FECT 05:56
PROVIDERS: ATTEND Psychiatry & Neurology Psychiatry
PROC: GZB4ZZZ Other Electroconvulsive Therapy (ICD-10-PCS; principal; 2017-08-20 08:30)
DX: F33.2 Major depressive disorder, recurrent severe without psychotic features (principal)
CPT/HCPCS: 90870; 94760

== ENCOUNTER 2017-08-27 05:44 | Day surgery (SDC) | payer OTHER ==
[2017-08-27 06:09] VITALS: TEMP 98; BMI 18.7
[2017-08-27] MEDS ORDERED: KETAMINE HCL 500 MG/10 ML VIAL ONE (06:56)
[2017-08-27] MEDS ORDERED: PROMETHAZINE HCL 25 MG/1 ML VIAL IVPUSH PRN (07:24)
[2017-08-27] MEDS ORDERED: ONDANSETRON 4 MG/2 ML VIAL IVPUSH PRN (07:24)
[2017-08-27 08:40] VITALS: BP 137/76; PULSE 88
== END 2017-08-27 08:30 | disposition home or self-care (01) ==
LOC: FECT 05:44
PROVIDERS: ATTEND Psychiatry & Neurology Psychiatry
PROC: GZB4ZZZ Other Electroconvulsive Therapy (ICD-10-PCS; principal; 2017-08-27 07:45)
DX: F33.2 Major depressive disorder, recurrent severe without psychotic features (principal)
CPT/HCPCS: 90870; 94760

== ENCOUNTER 2017-09-03 05:47 | Day surgery (SDC) | payer OTHER ==
[2017-09-03 06:25] VITALS: BMI 18.5
[2017-09-03 08:28] VITALS: TEMP 97.9
[2017-09-03 08:37] VITALS: BP 130/88; PULSE 88
== END 2017-09-03 08:40 | disposition home or self-care (01) ==
LOC: FECT 05:47
PROVIDERS: ATTEND Psychiatry & Neurology Psychiatry
PROC: GZB4ZZZ Other Electroconvulsive Therapy (ICD-10-PCS; principal; 2017-09-03 07:30)
DX: F33.2 Major depressive disorder, recurrent severe without psychotic features (principal)

== ENCOUNTER 2017-09-13 05:47 | Day surgery (SDC) | payer OTHER ==
[2017-09-13] MEDS ORDERED: KETAMINE HCL 500 MG/10 ML VIAL ONE (07:23)
[2017-09-13] MEDS ORDERED: ONDANSETRON 4 MG/2 ML VIAL IVPUSH PRN (08:15)
[2017-09-13] MEDS ORDERED: PROMETHAZINE HCL 25 MG/1 ML VIAL IVPUSH PRN (08:15)
[2017-09-13 08:18] VITALS: BMI 18.6
[2017-09-13 08:41] VITALS: TEMP 98
[2017-09-13 09:26] VITALS: BP 130/88; PULSE 88
== END 2017-09-13 09:00 | disposition home or self-care (01) ==
LOC: FECT 05:47
PROVIDERS: ATTEND Psychiatry & Neurology Psychiatry
PROC: GZB4ZZZ Other Electroconvulsive Therapy (ICD-10-PCS; principal; 2017-09-13 08:15)
DX: F33.2 Major depressive disorder, recurrent severe without psychotic features (principal)
CPT/HCPCS: 90870; 94760

== ENCOUNTER 2017-09-19 05:43 | Day surgery (SDC) | payer OTHER ==
[2017-09-19 07:06] VITALS: BMI 18.7
--- NOTE | 2017-09-19 07:09 | HP ---
Admitting History and Physical - Admission History of Present Illness: Patient is a 37 y/o male with a past medical history of depression, anxiety, and schizophrenia. Patient present for ect, his last ect was 09/13/17. patient reports feeling well, he denies any changes in medications. patient denies any recent illnesses or hospitalizations. He denies any suicidal or homicidal ideation, visual or auditory hallucinations. History Source: Patient Limitations to Obtaining History: No Limitations - Past Medical History Psych: Yes: Anxiety, Depression, Schizophrenia - Smoking History Smoking history: Current every day smoker Have you smoked in the past 12 months: Yes Aproximately how many cigarettes per day: 2 - Alcohol/Substance Use Hx Alcohol Use: Yes (SOBER DATE 03/04/16) History of Substance Use: reports: None - Social History Usual Living Arrangement: Yes: Assisted Living ADL: Independent History of Recent Travel: No Home Medications - Allergies Allergies/Adverse Reactions: Allergies Allergy/AdvReac Type Severity Reaction Status Date / Time No Known Drug Allergies Allergy Verified 08/20/17 11:23 - Home Medications Home Medications: Ambulatory Orders Clozapine [Clozapine Odt] 100 mg PO ASDIR 01/07/14 Clozapine [Clozapine Odt] 600 mg PO HS 01/07/14 Bupropion HCl [Wellbutrin Xl] 300 mg PO DAILY 07/02/16 Esomeprazole Magnesium 40 mg PO DAILY 07/02/16 Metoprolol Succinate [Toprol XL -] 12.5 mg PO BID 07/02/16 Sucralfate [Carafate -] 1 gm PO QID 07/02/16 levETIRAcetam [Keppra Xr -] 1,000 mg PO BID 07/02/16 traZODone HCL [Desyrel -] 300 mg PO HS 07/02/16 Potassium Chloride [Klor-Con] 20 meq PO DAILY 07/03/16 Risperidone [Risperdal] 2 mg PO BID 07/11/16 Clozapine [Clozapine Odt] 100 mg PO DAILY 02/19/17 Family Disease History - Family Disease History Family Disease History: Respiratory: Mother (copd), Other: Mother Review of Systems - Review of Systems Constitutional: reports: No Symptoms Eyes: reports: No Symptoms HENT: reports: No Symptoms Neck: reports: No Symptoms Cardiovascular: reports: No Symptoms Respiratory: reports: No Symptoms Gastrointestinal: reports: No Symptoms Genitourinary: reports: No Symptoms Musculoskeletal: reports: No Symptoms Integumentary: reports: No Symptoms Neurological: reports: No Symptoms Endocrine: reports: No Symptoms Hematology/Lymphatic: reports: No Symptoms Psychiatric: reports: No Symptoms Physical Examination Constitutional: Yes: Well Nourished, No Distress, Calm, Thin Eyes: Yes: WNL, Conjunctiva Clear, EOM Intact HENT: Yes: WNL, Atraumatic, Normocephalic Neck: Yes: WNL, Supple, Trachea Midline Cardiovascular: Yes: WNL, Regular Rate and Rhythm, S1, S2 Respiratory: Yes: WNL, Regular, CTA Bilaterally Gastrointestinal: Yes: WNL, Normal Bowel Sounds, Soft ...Rectal Exam: Yes: Deferred Renal/: Yes: WNL Breast(s): Yes: WNL Musculoskeletal: Yes: WNL Extremities: Yes: WNL Edema: No Peripheral Pulses WNL: Yes Peripheral Pulses: Left Radial: 4+, Right Radial: 4+, Left Doralis Pedis: 3+, Right Dorsalis Pedis: 3+, Left Femoral: 3+, Right Femoral: 3+ Integumentary: Yes: WNL Neurological: Yes: WNL, Alert, Oriented ...Motor Strength: WNL Psychiatric: Yes: WNL, Alert, Oriented Labs: reviewed 06/30 Imaging - Results EKG: Image Reviewed, Other (nsr normal axis) Assessment/Plan patient is a 37 y/o male that presents for ect, labs and ekg reviewed patient is medically optimized for procedure informed consent, risks/benefits to be obtained by Dr Bundy
[2017-09-19 08:43] VITALS: TEMP 97.9
[2017-09-19 08:47] VITALS: BP 122/88; PULSE 88
== END 2017-09-19 08:50 | disposition home or self-care (01) ==
LOC: FECT 05:43
PROVIDERS: ATTEND Psychiatry & Neurology Psychiatry
PROC: GZB4ZZZ Other Electroconvulsive Therapy (ICD-10-PCS; principal; 2017-09-19 07:00)
DX: F33.2 Major depressive disorder, recurrent severe without psychotic features (principal)
CPT/HCPCS: 90870; 94760

== ENCOUNTER 2017-10-08 05:44 | Day surgery (SDC) | payer OTHER ==
[2017-10-08 06:35] VITALS: BMI 19.1
[2017-10-08] MEDS ORDERED: KETAMINE HCL 500 MG/10 ML VIAL ONE (07:34)
[2017-10-08 09:02] VITALS: BP 123/84; PULSE 95; TEMP 97.6
[2017-10-08] MEDS ORDERED: ACETAMINOPHEN 325 MG TABLET (FP) PO PRN (09:06)
[2017-10-08] MEDS ORDERED: PROMETHAZINE HCL 25 MG/1 ML VIAL IVPUSH PRN (09:06)
== END 2017-10-08 09:00 | disposition home or self-care (01) ==
LOC: FECT 05:44
PROVIDERS: ATTEND Psychiatry & Neurology Psychiatry
PROC: GZB4ZZZ Other Electroconvulsive Therapy (ICD-10-PCS; principal; 2017-10-08 07:30)
DX: F33.2 Major depressive disorder, recurrent severe without psychotic features (principal)
CPT/HCPCS: 90870; 94760

== ENCOUNTER 2017-10-15 05:48 | Day surgery (SDC) | payer OTHER ==
[2017-10-08 15:57] VITALS: BMI 20.9
[2017-10-15] MEDS ORDERED: oxyCODONE HCL 5 MG TABLET PO PRN (08:07)
[2017-10-15] MEDS ORDERED: KETAMINE HCL 500 MG/10 ML VIAL ONE (08:16)
[2017-10-15 09:27] VITALS: TEMP 97.5
[2017-10-15 10:04] VITALS: BP 129/88; PULSE 88
== END 2017-10-15 09:50 | disposition home or self-care (01) ==
LOC: FECT 05:48
PROVIDERS: ATTEND Psychiatry & Neurology Psychiatry
PROC: GZB4ZZZ Other Electroconvulsive Therapy (ICD-10-PCS; principal; 2017-10-15 08:15)
DX: F33.2 Major depressive disorder, recurrent severe without psychotic features (principal)
CPT/HCPCS: 90870; 94760

== ENCOUNTER 2017-10-22 05:42 | Day surgery (SDC) | payer OTHER ==
[2017-10-22 07:01] VITALS: BMI 19.2
--- NOTE | 2017-10-22 07:18 | HP ---
Admitting History and Physical - Admission History of Present Illness: Patient is a 37 y/o male with a past medical history of depression, anxiety, and schizophrenia. Patient presents for ect, his last ect was 10/15/17. Patient reports feeling well, he does reports several days of feeling depressed due to the recent of his mother in late August. Patient denies any suicidal or homicidal ideation, he denies any visual or auditory hallucinations. History Source: Patient Limitations to Obtaining History: No Limitations - Past Medical History Psych: Yes: Anxiety, Depression, Schizophrenia - Smoking History Smoking history: Current every day smoker Have you smoked in the past 12 months: Yes Aproximately how many cigarettes per day: 2 - Alcohol/Substance Use Hx Alcohol Use: Yes (SOBER DATE 03/04/16) History of Substance Use: reports: None - Social History Usual Living Arrangement: Yes: Other ADL: Independent History of Recent Travel: No Home Medications - Allergies Allergies/Adverse Reactions: Allergies Allergy/AdvReac Type Severity Reaction Status Date / Time No Known Drug Allergies Allergy Verified 08/20/17 11:23 - Home Medications Home Medications: Ambulatory Orders Clozapine [Clozapine Odt] 100 mg PO ASDIR 01/07/14 Clozapine [Clozapine Odt] 600 mg PO HS 01/07/14 Bupropion HCl [Wellbutrin Xl] 300 mg PO DAILY 07/02/16 Esomeprazole Magnesium 40 mg PO DAILY 07/02/16 Metoprolol Succinate [Toprol XL -] 12.5 mg PO BID 07/02/16 Sucralfate [Carafate -] 1 gm PO QID 07/02/16 levETIRAcetam [Keppra Xr -] 1,000 mg PO BID 07/02/16 traZODone HCL [Desyrel -] 300 mg PO HS 07/02/16 Potassium Chloride [Klor-Con] 20 meq PO DAILY 07/03/16 Risperidone [Risperdal] 2 mg PO BID 07/11/16 Clozapine [Clozapine Odt] 100 mg PO DAILY 02/19/17 Family Disease History - Family Disease History Family Disease History: Respiratory: Mother (copd, ), Other: Mother Review of Systems - Review of Systems Constitutional: reports: No Symptoms Eyes: reports: No Symptoms HENT: reports: No Symptoms Neck: reports: No Symptoms Cardiovascular: reports: No Symptoms Respiratory: reports: No Symptoms Gastrointestinal: reports: No Symptoms Genitourinary: reports: No Symptoms Musculoskeletal: reports: No Symptoms Integumentary: reports: No Symptoms Neurological: reports: No Symptoms Endocrine: reports: No Symptoms Hematology/Lymphatic: reports: No Symptoms Psychiatric: reports: Depression Physical Examination Vital Signs: Vital Signs Temperature 98.0 F 10/22/17 06:58 Pulse Rate 80 10/22/17 06:58 Respiratory Rate 18 10/22/17 06:58 Blood Pressure 114/82 10/22/17 06:58 O2 Sat by Pulse Oximetry (%) 100 10/22/17 06:58 Constitutional: Yes: Well Nourished, No Distress, Calm Eyes: Yes: WNL, Conjunctiva Clear, EOM Intact HENT: Yes: WNL, Atraumatic, Normocephalic Neck: Yes: WNL, Supple, Trachea Midline Cardiovascular: Yes: WNL, Regular Rate and Rhythm, S1, S2 Respiratory: Yes: WNL, Regular, CTA Bilaterally Gastrointestinal: Yes: WNL, Normal Bowel Sounds, Soft ...Rectal Exam: Yes: Deferred Renal/: Yes: WNL Breast(s): Yes: WNL Musculoskeletal: Yes: WNL Extremities: Yes: WNL Edema: No Peripheral Pulses WNL: Yes Integumentary: Yes: WNL Neurological: Yes: WNL, Alert, Oriented ...Motor Strength: WNL Psychiatric: Yes: WNL, Alert, Oriented Labs: reviewed 06/30 Imaging - Results EKG: Image Reviewed, Other (nsr) Assessment/Plan patient is a 37 y/o male that presents for ect, labs and ekg reviewed patient is medically optimized for procedure informed consent, risks/benefits to be obtained by Dr Bundy
[2017-10-22] MEDS ORDERED: KETAMINE HCL 500 MG/10 ML VIAL ONE (07:46)
[2017-10-22 09:04] VITALS: TEMP 98.2
[2017-10-22 09:37] VITALS: BP 124/82; PULSE 86
== END 2017-10-22 09:39 | disposition home or self-care (01) ==
LOC: FECT 05:42
PROVIDERS: ATTEND Psychiatry & Neurology Psychiatry
PROC: GZB4ZZZ Other Electroconvulsive Therapy (ICD-10-PCS; principal; 2017-10-22 07:30)
DX: F33.2 Major depressive disorder, recurrent severe without psychotic features (principal)
CPT/HCPCS: 90870; 94760

== ENCOUNTER 2017-10-29 05:42 | Day surgery (SDC) | payer OTHER ==
[2017-10-29 06:30] VITALS: BMI 19.0
[2017-10-29] MEDS ORDERED: ACETAMINOPHEN 325 MG TABLET (FP) PO PRN (07:06)
[2017-10-29] MEDS ORDERED: LACTATED RINGERS SOLUTION 1,000 ML IV SCH (07:15)
[2017-10-29] MEDS ORDERED: ACETAMINOPHEN 325 MG TABLET (FP) PO ONE (07:39)
[2017-10-29 08:09] VITALS: TEMP 97.7
[2017-10-29 08:40] VITALS: BP 119/81; PULSE 88
== END 2017-10-29 08:50 | disposition home or self-care (01) ==
LOC: FECT 05:42
PROVIDERS: ATTEND Psychiatry & Neurology Psychiatry
PROC: GZB4ZZZ Other Electroconvulsive Therapy (ICD-10-PCS; principal; 2017-10-29 07:30)
DX: F33.2 Major depressive disorder, recurrent severe without psychotic features (principal)
CPT/HCPCS: 90870; 94760

== ENCOUNTER 2017-11-05 05:47 | Day surgery (SDC) | payer OTHER ==
[2017-11-05 06:18] VITALS: TEMP 98; BMI 19.0
[2017-11-05 08:43] VITALS: BP 121/87; PULSE 84
== END 2017-11-05 08:30 | disposition home or self-care (01) ==
LOC: FECT 05:47
PROVIDERS: ATTEND Psychiatry & Neurology Psychiatry
PROC: GZB4ZZZ Other Electroconvulsive Therapy (ICD-10-PCS; principal; 2017-11-05 07:45)
DX: F33.2 Major depressive disorder, recurrent severe without psychotic features (principal)
CPT/HCPCS: 90870; 94760

== ENCOUNTER 2017-11-12 06:01 | Day surgery (SDC) | payer OTHER ==
[2017-11-07 11:45] VITALS: BMI 19.0
[2017-11-12 06:21] VITALS: TEMP 97.5
[2017-11-12 08:31] VITALS: BP 131/79; PULSE 88
== END 2017-11-12 08:35 | disposition home or self-care (01) ==
LOC: FECT 06:01
PROVIDERS: ATTEND Psychiatry & Neurology Psychiatry
PROC: GZB4ZZZ Other Electroconvulsive Therapy (ICD-10-PCS; principal; 2017-11-12 07:30)
DX: F33.2 Major depressive disorder, recurrent severe without psychotic features (principal)
CPT/HCPCS: 90870; 94760

== ENCOUNTER 2017-11-19 06:05 | Day surgery (SDC) | payer OTHER ==
[2017-11-19 06:35] VITALS: TEMP 97.9
[2017-11-19 06:44] VITALS: BMI 20.5
[2017-11-19 08:45] VITALS: BP 120/84; PULSE 88
== END 2017-11-19 08:40 | disposition home or self-care (01) ==
LOC: FECT 06:05
PROVIDERS: ATTEND Psychiatry & Neurology Psychiatry
PROC: GZB4ZZZ Other Electroconvulsive Therapy (ICD-10-PCS; principal; 2017-11-19 07:30)
DX: F33.2 Major depressive disorder, recurrent severe without psychotic features (principal)
CPT/HCPCS: 90870; 94760

== ENCOUNTER 2017-11-27 05:42 | Day surgery (SDC) | payer OTHER ==
[2017-11-27 07:12] VITALS: BMI 19.4
--- NOTE | 2017-11-27 07:17 | HP ---
Admitting History and Physical - Admission History of Present Illness: Patient is a 37 y/o male with a past medical history of anxiety, depression, and scizophrenia. Patient presents for ect, his last ect was 11/19/17. Patient reports feeling well, he denies any recent illnesses or hospitalizations. Patient denies any changes to his medications and reports compliance with prescribed medications. Patient denies any suicidal or homicidal ideation, visual or auditory hallucinations. History Source: Patient Limitations to Obtaining History: No Limitations - Past Medical History Psych: Yes: Anxiety, Depression, Schizophrenia - Smoking History Smoking history: Current every day smoker Have you smoked in the past 12 months: Yes Aproximately how many cigarettes per day: 2 - Alcohol/Substance Use Hx Alcohol Use: Yes (SOBER DATE 03/04/16) History of Substance Use: reports: None - Social History Usual Living Arrangement: Yes: Other (intermediate) ADL: Independent History of Recent Travel: No Home Medications - Allergies Allergies/Adverse Reactions: Allergies Allergy/AdvReac Type Severity Reaction Status Date / Time No Known Drug Allergies Allergy Verified 11/07/17 11:33 - Home Medications Home Medications: Ambulatory Orders Clozapine [Clozapine Odt] 100 mg PO ASDIR 01/07/14 Clozapine [Clozapine Odt] 600 mg PO HS 01/07/14 Bupropion HCl [Wellbutrin Xl] 300 mg PO DAILY 07/02/16 Esomeprazole Magnesium 40 mg PO DAILY 07/02/16 Sucralfate [Carafate -] 1 gm PO QID 07/02/16 levETIRAcetam [Keppra Xr -] 1,000 mg PO BID 07/02/16 traZODone HCL [Desyrel -] 300 mg PO HS 07/02/16 Potassium Chloride [Klor-Con] 20 meq PO DAILY 07/03/16 Risperidone [Risperdal] 2 mg PO BID 07/11/16 Clozapine [Clozapine Odt] 100 mg PO DAILY 02/19/17 Metoprolol Succinate 25 mg PO DAILY 11/19/17 Nicotine Patch [Nicoderm Patch -] 1 patch TD DAILY 11/19/17 Family Disease History - Family Disease History Family Disease History: Respiratory: Mother (copd, ), Other: Mother Review of Systems - Review of Systems Constitutional: reports: No Symptoms Eyes: reports: No Symptoms HENT: reports: No Symptoms Neck: reports: No Symptoms Cardiovascular: reports: No Symptoms Respiratory: reports: No Symptoms Gastrointestinal: reports: No Symptoms Genitourinary: reports: No Symptoms Musculoskeletal: reports: No Symptoms Integumentary: reports: No Symptoms Neurological: reports: No Symptoms Endocrine: reports: No Symptoms Hematology/Lymphatic: reports: No Symptoms Psychiatric: reports: No Symptoms Physical Examination Constitutional: Yes: Well Nourished, No Distress, Calm Eyes: Yes: WNL, Conjunctiva Clear, EOM Intact HENT: Yes: WNL, Atraumatic, Normocephalic Neck: Yes: WNL, Supple, Trachea Midline Cardiovascular: Yes: WNL, Regular Rate and Rhythm, S1, S2 Respiratory: Yes: WNL, Regular, CTA Bilaterally Gastrointestinal: Yes: WNL, Normal Bowel Sounds, Soft ...Rectal Exam: Yes: Deferred Renal/: Yes: WNL Breast(s): Yes: WNL Musculoskeletal: Yes: WNL Extremities: Yes: WNL Edema: No Peripheral Pulses WNL: Yes Integumentary: Yes: WNL Neurological: Yes: WNL, Alert, Oriented ...Motor Strength: WNL Psychiatric: Yes: WNL, Alert, Oriented Labs: reviewed 12/29 Imaging - Results EKG: Other (nsr no ischemic changes) Assessment/Plan patient is a 37 y/o male that presents for ect, labs and ekg reviewed patient is medically optimized for procedure informed consent, risks/benefits to be obtained by Dr Bundy
[2017-11-27 10:33] VITALS: TEMP 98.1
[2017-11-27 10:49] VITALS: BP 124/86; PULSE 94
[2017-11-27 11:39] LABS: ALBUMIN 4.1 g/dl (3.5-5.0); ALK PHOS 59 U/L (32-92); ANION GAP 3 (8-16); BLOOD UREA NITROGEN 10 mg/dl (7-18); CALCIUM 8.9 mg/dl (8.4-10.2); CHLORIDE 108 mmol/L (98-107); CO2 26 mmol/L (22-28); GLUCOSE,RANDOM 103 mg/dl (74-106); POTASSIUM 4.5 mmol/L (3.5-5.1); SGOT/AST 18 U/L (10-42); SGPT/ALT 20 U/L (10-40); SODIUM 137 mmol/L (136-145); TOT PROT 6.6 g/dl (6.4-8.3)
[2017-11-27 12:05] LABS: HEMATOCRIT 40.7 % (35.4-49); MCH 31.6 pg (25.7-33.7); MCHC 34.5 g/dl (32.0-35.9); MEAN CELL VOLUME 91.7 fl (80-96); MEAN PLT VOLUME 7.5 fl (7.5-11.1); PLATELET COUNT 349 K/MM3 (134-434); RBC 4.44 M/mm3 (4.00-5.60); RDW 13.5 % (11.9-15.9); WHITE BLOOD COUNT 9.3 K/mm3 (4.0-10.8)
[2017-11-27 12:06] LABS: BILIRUBIN,TOTAL < 0.5 mg/dl (0.2-1.0)
== END 2017-11-27 10:51 | disposition home or self-care (01) ==
LOC: FECT 05:42
PROVIDERS: ATTEND Psychiatry & Neurology Psychiatry
PROC: GZB4ZZZ Other Electroconvulsive Therapy (ICD-10-PCS; principal; 2017-11-27 08:00)
DX: F33.2 Major depressive disorder, recurrent severe without psychotic features (principal)
CPT/HCPCS: 36415; 80053; 85027; 90870; 94760

== ENCOUNTER 2017-12-03 05:49 | Day surgery (SDC) | payer OTHER ==
[2017-11-29 10:41] VITALS: BMI 19.3
[2017-12-03] MEDS ORDERED: ONDANSETRON 4 MG/2 ML VIAL IVPUSH PRN (07:20)
[2017-12-03] MEDS ORDERED: ACETAMINOPHEN 325 MG TABLET (FP) PO PRN (07:20)
[2017-12-03 08:48] VITALS: TEMP 97.7
[2017-12-03 09:05] VITALS: BP 122/83; PULSE 95
== END 2017-12-03 09:06 | disposition home or self-care (01) ==
LOC: FECT 05:49
PROVIDERS: ATTEND Psychiatry & Neurology Psychiatry
PROC: GZB4ZZZ Other Electroconvulsive Therapy (ICD-10-PCS; principal; 2017-12-03 08:00)
DX: F33.2 Major depressive disorder, recurrent severe without psychotic features (principal)
CPT/HCPCS: 90870; 94760

== ENCOUNTER 2017-12-10 05:45 | Day surgery (SDC) | payer OTHER ==
[2017-12-10 06:43] VITALS: BMI 19.3
[2017-12-10 09:42] VITALS: TEMP 97.9
[2017-12-10 09:51] VITALS: BP 140/92; PULSE 93
== END 2017-12-10 09:00 | disposition home or self-care (01) ==
LOC: FECT 05:45
PROVIDERS: ATTEND Psychiatry & Neurology Psychiatry
PROC: GZB4ZZZ Other Electroconvulsive Therapy (ICD-10-PCS; principal; 2017-12-10 08:00)
DX: F33.2 Major depressive disorder, recurrent severe without psychotic features (principal)
CPT/HCPCS: 90870; 94760

== ENCOUNTER 2017-12-17 05:38 | Day surgery (SDC) | payer OTHER ==
[2017-12-17 06:40] VITALS: BMI 19.3
[2017-12-17] MEDS ORDERED: ONDANSETRON 4 MG/2 ML VIAL IVPUSH PRN (07:39)
[2017-12-17 08:33] VITALS: TEMP 97.9
[2017-12-17 08:35] VITALS: BP 129/84; PULSE 88
== END 2017-12-17 08:30 | disposition home or self-care (01) ==
LOC: FECT 05:38
PROVIDERS: ATTEND Psychiatry & Neurology Psychiatry
PROC: GZB4ZZZ Other Electroconvulsive Therapy (ICD-10-PCS; principal; 2017-12-17 07:15)
DX: F33.2 Major depressive disorder, recurrent severe without psychotic features (principal)
CPT/HCPCS: 90870; 94760

== ENCOUNTER 2017-12-24 05:38 | Day surgery (SDC) | payer OTHER ==
[2017-12-24 06:39] VITALS: BMI 19.5
[2017-12-24] MEDS ORDERED: KETAMINE HCL 500 MG/10 ML VIAL ONE (07:04)
[2017-12-24 08:14] VITALS: TEMP 98.6
[2017-12-24 08:43] VITALS: BP 129/87; PULSE 92
--- NOTE | 2017-12-24 13:46 | EKG ---
Test Reason : Blood Pressure : / mmHG Vent. Rate : 089 BPM Atrial Rate : 089 BPM P-R Int : 156 ms QRS Dur : 088 ms QT Int : 366 ms P-R-T Axes : 061 051 056 degrees QTc Int : 445 ms NORMAL SINUS RHYTHM POSSIBLE LEFT ATRIAL ENLARGEMENT BORDERLINE ECG WHEN COMPARED WITH ECG OF 25-JUN-2017 06:48, NO SIGNIFICANT CHANGE WAS FOUND Confirmed by MD SHEREE, ANTONIETA ([id number]) on 12/24/2017 1:45:45 PM Referred By: Fran Bundy Confirmed By:ANTONIETA BENTLEY MD
== END 2017-12-24 08:40 | disposition home or self-care (01) ==
LOC: FECT 05:38
PROVIDERS: ATTEND Psychiatry & Neurology Psychiatry
PROC: GZB4ZZZ Other Electroconvulsive Therapy (ICD-10-PCS; principal; 2017-12-24 07:15)
DX: F33.2 Major depressive disorder, recurrent severe without psychotic features (principal)
CPT/HCPCS: 90870; 93005; 94760

== ENCOUNTER 2018-01-02 05:35 | Day surgery (SDC) | payer OTHER ==
--- NOTE | 2018-01-02 07:05 | HP ---
Admitting History and Physical - Admission History of Present Illness: Patient is a 37 y/o male with a past medical history of tachycardia, anxiety, depression, and schizophrenia. Patient presents for ect, his last ect was 12/24. Patient reports feeling well. He denies any recent illness or hospitalizations. patient denies any changes to medications and reports compliance with prescribed medications. Patient denies any suicidal or homicidal ideation, visual or auditory hallucinations. History Source: Patient Limitations to Obtaining History: No Limitations - Past Medical History Psych: Yes: Anxiety, Depression, Schizophrenia - Past Surgical History Past Surgical History: Yes: None - Smoking History Smoking history: Current every day smoker Have you smoked in the past 12 months: Yes Aproximately how many cigarettes per day: 2 - Alcohol/Substance Use Hx Alcohol Use: Yes (SOBER DATE 03/04/16) History of Substance Use: reports: None - Social History Usual Living Arrangement: Yes: Other ADL: Independent Occupation: unemployed History of Recent Travel: No Home Medications - Allergies Allergies/Adverse Reactions: Allergies Allergy/AdvReac Type Severity Reaction Status Date / Time No Known Drug Allergies Allergy Verified 11/07/17 11:33 - Home Medications Home Medications: Ambulatory Orders Clozapine [Clozapine Odt] 100 mg PO ASDIR 01/07/14 Clozapine [Clozapine Odt] 600 mg PO HS 01/07/14 Bupropion HCl [Wellbutrin Xl] 300 mg PO DAILY 07/02/16 Esomeprazole Magnesium 40 mg PO DAILY 07/02/16 Sucralfate [Carafate -] 1 gm PO QID 07/02/16 levETIRAcetam [Keppra Xr -] 1,000 mg PO BID 07/02/16 traZODone HCL [Desyrel -] 300 mg PO HS 07/02/16 Potassium Chloride [Klor-Con] 20 meq PO DAILY 07/03/16 Risperidone [Risperdal] 2 mg PO BID 07/11/16 Clozapine [Clozapine Odt] 100 mg PO DAILY 02/19/17 Metoprolol Succinate 25 mg PO HS 11/19/17 Nicotine Patch [Nicoderm Patch -] 1 patch TD DAILY 11/19/17 Family Disease History - Family Disease History Family Disease History: Respiratory: Mother (copd, ), Other: Mother Review of Systems - Review of Systems Constitutional: reports: No Symptoms Eyes: reports: No Symptoms HENT: reports: No Symptoms Neck: reports: No Symptoms Cardiovascular: reports: No Symptoms Respiratory: reports: No Symptoms Gastrointestinal: reports: No Symptoms Genitourinary: reports: No Symptoms Musculoskeletal: reports: No Symptoms Integumentary: reports: No Symptoms Neurological: reports: No Symptoms Endocrine: reports: No Symptoms Hematology/Lymphatic: reports: No Symptoms Psychiatric: reports: No Symptoms Physical Examination Constitutional: Yes: Well Nourished, No Distress, Calm Eyes: Yes: WNL, Conjunctiva Clear, EOM Intact HENT: Yes: WNL, Atraumatic, Normocephalic Neck: Yes: WNL, Supple, Trachea Midline Cardiovascular: Yes: WNL, Regular Rate and Rhythm, S1, S2 Respiratory: Yes: WNL, Regular, CTA Bilaterally Gastrointestinal: Yes: WNL, Normal Bowel Sounds, Soft ...Rectal Exam: Yes: Deferred Renal/: Yes: WNL Musculoskeletal: Yes: WNL Extremities: Yes: WNL Edema: No Peripheral Pulses WNL: Yes Peripheral Pulses: Left Radial: 4+, Right Radial: 4+, Left Doralis Pedis: 3+, Right Dorsalis Pedis: 3+, Left Femoral: 3+, Right Femoral: 3+ Integumentary: Yes: WNL Neurological: Yes: WNL, Alert, Oriented ...Motor Strength: WNL Psychiatric: Yes: WNL, Alert, Oriented Labs: reviewed 11/29 Imaging - Results EKG: Other (nsr) Assessment/Plan patient is a 37 y/o male, that presents for ect, labs and ekg reviewed patient is medically optimized for procedure informed consent/risks and benefits to be obtained by Dr Bundy
[2018-01-02] MEDS ORDERED: ACETAMINOPHEN 325 MG TABLET (FP) PO PRN (07:44)
[2018-01-02 08:48] VITALS: BMI 19.5
[2018-01-02 09:01] VITALS: BP 135/88; PULSE 88; TEMP 97.6
== END 2018-01-02 09:15 | disposition home or self-care (01) ==
LOC: FECT 05:35
PROVIDERS: ATTEND Psychiatry & Neurology Psychiatry
PROC: GZB4ZZZ Other Electroconvulsive Therapy (ICD-10-PCS; principal; 2018-01-02 07:00)
DX: F33.2 Major depressive disorder, recurrent severe without psychotic features (principal)
CPT/HCPCS: 90870; 94760

== ENCOUNTER 2018-01-07 05:44 | Day surgery (SDC) | payer OTHER ==
[2018-01-07 06:29] VITALS: BMI 19.3
[2018-01-07] MEDS ORDERED: KETAMINE HCL 500 MG/10 ML VIAL ONE (07:55)
[2018-01-07 08:55] VITALS: TEMP 98.7
[2018-01-07 09:15] VITALS: BP 132/86; PULSE 88
== END 2018-01-07 09:20 | disposition home or self-care (01) ==
LOC: FECT 05:44
PROVIDERS: ATTEND Psychiatry & Neurology Psychiatry
PROC: GZB4ZZZ Other Electroconvulsive Therapy (ICD-10-PCS; principal; 2018-01-07 07:30)
DX: F33.2 Major depressive disorder, recurrent severe without psychotic features (principal)
CPT/HCPCS: 90870; 94760

== ENCOUNTER 2018-01-31 05:49 | Day surgery (SDC) | payer OTHER ==
[2018-01-31] MEDS ORDERED: KETAMINE HCL 500 MG/10 ML VIAL ONE (08:11)
[2018-01-31 09:44] VITALS: BP 126/87; PULSE 100; TEMP 98
== END 2018-01-31 09:46 | disposition home or self-care (01) ==
LOC: FECT 05:49
PROVIDERS: ATTEND Psychiatry & Neurology Psychiatry
PROC: GZB4ZZZ Other Electroconvulsive Therapy (ICD-10-PCS; principal; 2018-01-31 07:15)
DX: F33.2 Major depressive disorder, recurrent severe without psychotic features (principal)
CPT/HCPCS: 90870; 94760

== ENCOUNTER 2018-02-04 05:38 | Day surgery (SDC) | payer OTHER ==
[2018-02-04 06:35] VITALS: BMI 20.9
[2018-02-04] MEDS ORDERED: KETAMINE HCL 500 MG/10 ML VIAL ONE (07:30)
[2018-02-04 08:58] VITALS: TEMP 98.2
[2018-02-04 09:16] VITALS: BP 139/97; PULSE 95
== END 2018-02-04 09:00 | disposition home or self-care (01) ==
LOC: FECT 05:38
PROVIDERS: ATTEND Psychiatry & Neurology Psychiatry
PROC: GZB4ZZZ Other Electroconvulsive Therapy (ICD-10-PCS; principal; 2018-02-04 07:30)
DX: F33.2 Major depressive disorder, recurrent severe without psychotic features (principal)
CPT/HCPCS: 90870; 94760

== ENCOUNTER 2018-03-04 05:45 | Day surgery (SDC) | payer OTHER ==
[2018-03-04 07:12] VITALS: BMI 18.3
[2018-03-04 09:25] VITALS: TEMP 97.8
[2018-03-04] MEDS ORDERED: ONDANSETRON 4 MG/2 ML VIAL IVPUSH PRN (09:42)
[2018-03-04] MEDS ORDERED: LACTATED RINGERS SOLUTION 1,000 ML IV SCH (09:45)
[2018-03-04 10:28] VITALS: BP 130/82; PULSE 98
== END 2018-03-04 09:45 | disposition home or self-care (01) ==
LOC: FECT 05:45
PROVIDERS: ATTEND Psychiatry & Neurology Psychiatry
PROC: GZB4ZZZ Other Electroconvulsive Therapy (ICD-10-PCS; principal; 2018-03-04 07:45)
DX: F33.2 Major depressive disorder, recurrent severe without psychotic features (principal)
CPT/HCPCS: 90870; 94760

== ENCOUNTER 2018-03-11 05:36 | Day surgery (SDC) | payer OTHER ==
[2018-03-11 06:26] VITALS: BMI 18.3
[2018-03-11] MEDS ORDERED: ONDANSETRON 4 MG/2 ML VIAL IVPUSH PRN (07:13)
[2018-03-11] MEDS ORDERED: LACTATED RINGERS SOLUTION 1,000 ML IV SCH (07:15)
[2018-03-11 08:11] VITALS: TEMP 98
[2018-03-11 08:45] VITALS: BP 128/83; PULSE 87
== END 2018-03-11 09:03 | disposition home or self-care (01) ==
LOC: FECT 05:36
PROVIDERS: ATTEND Psychiatry & Neurology Psychiatry
PROC: GZB4ZZZ Other Electroconvulsive Therapy (ICD-10-PCS; principal; 2018-03-11 07:15)
DX: F33.2 Major depressive disorder, recurrent severe without psychotic features (principal)
CPT/HCPCS: 90870; 94760

== ENCOUNTER 2018-03-18 05:39 | Day surgery (SDC) | payer OTHER ==
[2018-03-11 13:04] VITALS: BMI 18.3
--- NOTE | 2018-03-18 07:08 | HP ---
Admitting History and Physical - Admission History of Present Illness: Patient is a 37 y/o male with a past medical history of schizophrenia, depression, anxiety, and tachycardia. Patient presents for ect, he has been undergoing ect since 2013, patient's last ect was 03/11. Patient reports a significant improvement in depressive symptoms since starting ect. He denies any suicidal or homicidal ideation, visual or auditory hallucinations. patient denies any changes to medications, he reports compliance with prescribed medications. Patient denies any recent illnesses or hospitalizations. History Source: Patient Limitations to Obtaining History: No Limitations - Past Medical History Psych: Yes: Anxiety, Depression, Schizophrenia - Past Surgical History Past Surgical History: Yes: None - Smoking History Smoking history: Current every day smoker Have you smoked in the past 12 months: Yes Aproximately how many cigarettes per day: 2 - Alcohol/Substance Use Hx Alcohol Use: Yes (SOBER DATE 03/04/16) History of Substance Use: reports: None - Social History Usual Living Arrangement: Yes: Other ADL: Independent Occupation: unemployed History of Recent Travel: No Home Medications - Allergies Allergies/Adverse Reactions: Allergies Allergy/AdvReac Type Severity Reaction Status Date / Time No Known Drug Allergies Allergy Verified 02/25/18 14:29 - Home Medications Home Medications: Ambulatory Orders Clozapine [Clozapine Odt] 100 mg PO ASDIR 01/07/14 Clozapine [Clozapine Odt] 600 mg PO HS 01/07/14 Bupropion HCl [Wellbutrin Xl] 300 mg PO DAILY 07/02/16 Esomeprazole Magnesium 40 mg PO DAILY 07/02/16 Sucralfate [Carafate -] 1 gm PO QID 07/02/16 levETIRAcetam [Keppra Xr -] 1,000 mg PO BID 07/02/16 traZODone HCL [Desyrel -] 300 mg PO HS 07/02/16 Potassium Chloride [Klor-Con] 20 meq PO DAILY 07/03/16 Risperidone [Risperdal] 2 mg PO BID 07/11/16 Clozapine [Clozapine Odt] 100 mg PO DAILY 02/19/17 Metoprolol Succinate 25 mg PO HS 11/19/17 Nicotine Patch [Nicoderm Patch -] 1 patch TD DAILY 11/19/17 Family Disease History - Family Disease History Family Disease History: Respiratory: Mother (copd, ), Other: Mother Review of Systems - Review of Systems Constitutional: reports: No Symptoms Eyes: reports: No Symptoms HENT: reports: No Symptoms Neck: reports: No Symptoms Cardiovascular: reports: No Symptoms Respiratory: reports: No Symptoms Gastrointestinal: reports: No Symptoms Genitourinary: reports: No Symptoms Musculoskeletal: reports: No Symptoms Integumentary: reports: No Symptoms Neurological: reports: No Symptoms Endocrine: reports: No Symptoms Hematology/Lymphatic: reports: No Symptoms Psychiatric: reports: No Symptoms Physical Examination Constitutional: Yes: Well Nourished, No Distress, Calm Eyes: Yes: WNL, Conjunctiva Clear, EOM Intact HENT: Yes: WNL, Atraumatic, Normocephalic Neck: Yes: WNL, Supple, Trachea Midline Cardiovascular: Yes: WNL, Regular Rate and Rhythm, S1, S2 Respiratory: Yes: WNL, Regular, CTA Bilaterally Gastrointestinal: Yes: WNL, Normal Bowel Sounds, Soft ...Rectal Exam: Yes: Deferred Renal/: Yes: WNL Breast(s): Yes: WNL Musculoskeletal: Yes: WNL Extremities: Yes: WNL Edema: No Peripheral Pulses WNL: Yes Peripheral Pulses: Left Radial: 4+, Right Radial: 4+, Left Doralis Pedis: 3+, Right Dorsalis Pedis: 3+, Left Femoral: 3+, Right Femoral: 3+ Integumentary: Yes: WNL Neurological: Yes: WNL, Alert, Oriented ...Motor Strength: WNL Psychiatric: Yes: WNL, Alert, Oriented Labs: reviewed 11/29 Imaging - Results EKG: Other (nsr) Assessment/Plan Patient is a 37 y/o male that presents for ect, labs and ekg reviewed patient is medically optimized for procedure informed consent, risks/benefits to be obtained by Dr Bundy
[2018-03-18 09:59] VITALS: TEMP 97.5
[2018-03-18 10:26] VITALS: BP 144/94; PULSE 87
== END 2018-03-18 10:20 | disposition home or self-care (01) ==
LOC: FECT 05:39
PROVIDERS: ATTEND Psychiatry & Neurology Psychiatry
PROC: GZB4ZZZ Other Electroconvulsive Therapy (ICD-10-PCS; principal; 2018-03-18 08:15)
DX: F33.2 Major depressive disorder, recurrent severe without psychotic features (principal)
CPT/HCPCS: 90870; 94760

== ENCOUNTER 2018-03-25 05:40 | Day surgery (SDC) | payer OTHER ==
[2018-03-18 16:53] VITALS: BMI 18.3
[2018-03-25 06:58] VITALS: TEMP 98.2
[2018-03-25] MEDS ORDERED: KETAMINE HCL 500 MG/10 ML VIAL ONE (07:43)
[2018-03-25] MEDS ORDERED: ONDANSETRON 4 MG/2 ML VIAL IVPUSH PRN (08:54)
[2018-03-25] MEDS ORDERED: LACTATED RINGERS SOLUTION 1,000 ML IV SCH (09:00)
[2018-03-25 09:14] VITALS: BP 125/83; PULSE 89
== END 2018-03-25 09:15 | disposition home or self-care (01) ==
LOC: FECT 05:40
PROVIDERS: ATTEND Psychiatry & Neurology Psychiatry
PROC: GZB4ZZZ Other Electroconvulsive Therapy (ICD-10-PCS; principal; 2018-03-25 07:15)
DX: F33.2 Major depressive disorder, recurrent severe without psychotic features (principal)
CPT/HCPCS: 90870; 94760

== ENCOUNTER 2018-04-01 06:08 | Day surgery (SDC) | payer OTHER ==
[2018-04-01 06:40] VITALS: TEMP 97.6; BMI 19.3
[2018-04-01 08:47] VITALS: BP 133/89; PULSE 84
== END 2018-04-01 08:45 | disposition home or self-care (01) ==
LOC: FECT 06:08
PROVIDERS: ATTEND Psychiatry & Neurology Psychiatry
PROC: GZB4ZZZ Other Electroconvulsive Therapy (ICD-10-PCS; principal; 2018-04-01 07:30)
DX: F33.2 Major depressive disorder, recurrent severe without psychotic features (principal)
CPT/HCPCS: 90870; 94760

== ENCOUNTER 2018-04-04 06:19 | Day surgery (SDC) | payer OTHER ==
[2018-04-04 07:07] VITALS: BMI 18.1
[2018-04-04 08:42] VITALS: TEMP 97.5
[2018-04-04 09:21] VITALS: BP 121/84; PULSE 89
== END 2018-04-04 09:20 | disposition home or self-care (01) ==
LOC: FECT 06:19
PROVIDERS: ATTEND Psychiatry & Neurology Psychiatry
PROC: GZB4ZZZ Other Electroconvulsive Therapy (ICD-10-PCS; principal; 2018-04-04 07:45)
DX: F33.2 Major depressive disorder, recurrent severe without psychotic features (principal)
CPT/HCPCS: 90870; 94760

== ENCOUNTER 2018-04-08 05:47 | Day surgery (SDC) | payer OTHER ==
[2018-04-08 06:50] VITALS: BMI 17.9
[2018-04-08] MEDS ORDERED: KETAMINE HCL 500 MG/10 ML VIAL ONE (07:21)
[2018-04-08 09:06] VITALS: TEMP 98
[2018-04-08 09:12] VITALS: BP 133/90; PULSE 76
[2018-04-08] MEDS ORDERED: ONDANSETRON 4 MG/2 ML VIAL IVPUSH PRN (11:12)
[2018-04-08] MEDS ORDERED: LACTATED RINGERS SOLUTION 1,000 ML IV SCH (11:15)
== END 2018-04-08 09:15 | disposition home or self-care (01) ==
LOC: FECT 05:47
PROVIDERS: ATTEND Psychiatry & Neurology Psychiatry
PROC: GZB4ZZZ Other Electroconvulsive Therapy (ICD-10-PCS; principal; 2018-04-08 07:15)
DX: F33.2 Major depressive disorder, recurrent severe without psychotic features (principal)
CPT/HCPCS: 90870; 94760

== ENCOUNTER 2018-04-11 05:50 | Day surgery (SDC) | payer OTHER ==
[2018-04-11 06:57] VITALS: BMI 18.1
[2018-04-11] MEDS ORDERED: LACTATED RINGERS SOLUTION 1,000 ML IV SCH (07:30)
[2018-04-11] MEDS ORDERED: KETAMINE HCL 500 MG/10 ML VIAL ONE (07:31)
[2018-04-11 08:41] VITALS: TEMP 97.6
[2018-04-11 08:54] VITALS: BP 122/92; PULSE 89
== END 2018-04-11 08:50 | disposition home or self-care (01) ==
LOC: FECT 05:50
PROVIDERS: ATTEND Psychiatry & Neurology Psychiatry
PROC: GZB4ZZZ Other Electroconvulsive Therapy (ICD-10-PCS; principal; 2018-04-11 08:15)
DX: F33.2 Major depressive disorder, recurrent severe without psychotic features (principal)
CPT/HCPCS: 90870; 94760

== ENCOUNTER 2018-04-15 05:40 | Day surgery (SDC) | payer OTHER ==
[2018-04-15 07:06] VITALS: BMI 18.1
[2018-04-15] MEDS ORDERED: KETAMINE HCL 500 MG/10 ML VIAL ONE (08:02)
[2018-04-15 08:58] VITALS: TEMP 97.7
[2018-04-15 09:20] VITALS: BP 117/77; PULSE 90
== END 2018-04-15 09:25 | disposition home or self-care (01) ==
LOC: FECT 05:40
PROVIDERS: ATTEND Psychiatry & Neurology Psychiatry
PROC: GZB4ZZZ Other Electroconvulsive Therapy (ICD-10-PCS; principal; 2018-04-15 07:30)
DX: F33.2 Major depressive disorder, recurrent severe without psychotic features (principal)
CPT/HCPCS: 90870; 94760

== ENCOUNTER 2018-04-25 05:46 | Day surgery (SDC) | payer OTHER ==
[2018-04-25 07:39] VITALS: BMI 18.1
--- NOTE | 2018-04-25 07:43 | HP ---
Admitting History and Physical - Admission History of Present Illness: patient is a 37 y/o male with a past medical history of depression, anxiety, scizophrenia, and tachycardia. Patient presents for ect, he has been undergoing ect since 2013, his last ect was 04/15/18. Patient reports feeling well, he denies any changes to his medications and reports compliance with prescribed medications. Patient denies any recent illnesses or hospitalizations. He denies any suicidal or homicidal ideation, visual or auditory hallucinations. History Source: Patient Limitations to Obtaining History: No Limitations - Past Medical History Psych: Yes: Anxiety, Depression, Schizophrenia - Past Surgical History Past Surgical History: Yes: None - Smoking History Smoking history: Current every day smoker Have you smoked in the past 12 months: Yes Aproximately how many cigarettes per day: 2 - Alcohol/Substance Use Hx Alcohol Use: Yes (SOBER DATE 03/04/16) History of Substance Use: reports: None - Social History Usual Living Arrangement: Yes: Other ADL: Independent Occupation: unemployed History of Recent Travel: No Home Medications - Allergies Allergies/Adverse Reactions: Allergies Allergy/AdvReac Type Severity Reaction Status Date / Time No Known Drug Allergies Allergy Verified 03/18/18 07:22 - Home Medications Home Medications: Ambulatory Orders Clozapine [Clozapine Odt] 100 mg PO ASDIR 01/07/14 Clozapine [Clozapine Odt] 600 mg PO HS 01/07/14 Bupropion HCl [Wellbutrin Xl] 300 mg PO DAILY 07/02/16 Esomeprazole Magnesium 40 mg PO HS 07/02/16 Sucralfate [Carafate -] 1 gm PO QID 07/02/16 levETIRAcetam [Keppra Xr -] 1,000 mg PO BID 07/02/16 traZODone HCL [Desyrel -] 300 mg PO HS 07/02/16 Potassium Chloride [Klor-Con] 20 meq PO DAILY 07/03/16 Risperidone [Risperdal] 2 mg PO BID 07/11/16 Clozapine [Clozapine Odt] 100 mg PO AM 02/19/17 Metoprolol Succinate 25 mg PO HS 11/19/17 Nicotine Patch [Nicoderm Patch -] 1 patch TD DAILY 11/19/17 Benztropine Mesylate [Cogentin -] 0.5 mg PO DAILY 04/25/18 Family Disease History - Family Disease History Family Disease History: Respiratory: Mother (copd, ), Other: Mother Review of Systems - Review of Systems Constitutional: reports: No Symptoms Eyes: reports: No Symptoms HENT: reports: No Symptoms Neck: reports: No Symptoms Cardiovascular: reports: No Symptoms Respiratory: reports: No Symptoms Gastrointestinal: reports: No Symptoms Genitourinary: reports: No Symptoms Musculoskeletal: reports: No Symptoms Integumentary: reports: No Symptoms Neurological: reports: No Symptoms Endocrine: reports: No Symptoms Hematology/Lymphatic: reports: No Symptoms Psychiatric: reports: No Symptoms Physical Examination Vital Signs: Vital Signs Temperature 97.8 F 04/25/18 07:36 Pulse Rate 81 04/25/18 07:36 Respiratory Rate 18 04/25/18 07:36 Blood Pressure 111/79 04/25/18 07:36 O2 Sat by Pulse Oximetry (%) 100 04/25/18 07:36 Constitutional: Yes: Well Nourished, No Distress, Calm Eyes: Yes: WNL, Conjunctiva Clear, EOM Intact HENT: Yes: WNL, Atraumatic, Normocephalic Neck: Yes: WNL, Supple, Trachea Midline Cardiovascular: Yes: WNL, Regular Rate and Rhythm, S1, S2 Respiratory: Yes: WNL, Regular, CTA Bilaterally Gastrointestinal: Yes: WNL, Normal Bowel Sounds, Soft ...Rectal Exam: Yes: Deferred Renal/: Yes: WNL Breast(s): Yes: WNL Musculoskeletal: Yes: WNL Extremities: Yes: WNL Edema: No Peripheral Pulses WNL: Yes Peripheral Pulses: Left Radial: 4+, Right Radial: 4+, Left Doralis Pedis: 3+, Right Dorsalis Pedis: 3+, Left Femoral: 3+, Right Femoral: 3+ Integumentary: Yes: WNL Neurological: Yes: WNL, Alert, Oriented ...Motor Strength: WNL Psychiatric: Yes: WNL, Alert, Oriented Labs: reviewed 11/29 Imaging - Results EKG: Image Reviewed, Other (nsr) Assessment/Plan patient is a 37 y/o male that presents for ect, labs and ekg reviewed patient is medically optimized for procedure informed consent, risks/benefits to be obtained by Dr Bundy
[2018-04-25 10:21] VITALS: TEMP 98.5
[2018-04-25 10:23] VITALS: BP 135/89; PULSE 83
== END 2018-04-25 10:50 | disposition home or self-care (01) ==
LOC: FECT 05:46
PROVIDERS: ATTEND Psychiatry & Neurology Psychiatry
PROC: GZB4ZZZ Other Electroconvulsive Therapy (ICD-10-PCS; principal; 2018-04-25 08:15)
DX: F33.2 Major depressive disorder, recurrent severe without psychotic features (principal)
CPT/HCPCS: 90870; 94760

== ENCOUNTER 2018-04-29 05:42 | Day surgery (SDC) | payer OTHER ==
[2018-04-29 07:16] VITALS: TEMP 98; BMI 19.5
[2018-04-29] MEDS ORDERED: KETAMINE HCL 500 MG/10 ML VIAL ONE (07:32)
[2018-04-29] MEDS ORDERED: ONDANSETRON 4 MG/2 ML VIAL IVPUSH PRN (07:46)
[2018-04-29] MEDS ORDERED: ACETAMINOPHEN 325 MG TABLET (FP) PO PRN (07:46)
[2018-04-29] MEDS ORDERED: LACTATED RINGERS SOLUTION 1,000 ML IV SCH (08:00)
[2018-04-29 08:53] VITALS: BP 125/90; PULSE 86
== END 2018-04-29 09:00 | disposition home or self-care (01) ==
LOC: FECT 05:42
PROVIDERS: ATTEND Psychiatry & Neurology Psychiatry
PROC: GZB4ZZZ Other Electroconvulsive Therapy (ICD-10-PCS; principal; 2018-04-29 07:45)
DX: F33.2 Major depressive disorder, recurrent severe without psychotic features (principal)
CPT/HCPCS: 90870; 94760

== ENCOUNTER 2018-05-06 05:43 | Day surgery (SDC) | payer OTHER ==
[2018-05-06 06:46] VITALS: TEMP 97.4; BMI 18.5
[2018-05-06] MEDS ORDERED: KETAMINE HCL 500 MG/10 ML VIAL ONE (07:08)
[2018-05-06 09:00] VITALS: BP 120/88; PULSE 84
== END 2018-05-06 08:55 | disposition home or self-care (01) ==
LOC: FECT 05:43
PROVIDERS: ATTEND Psychiatry & Neurology Psychiatry
PROC: GZB4ZZZ Other Electroconvulsive Therapy (ICD-10-PCS; principal; 2018-05-06 07:15)
DX: F33.2 Major depressive disorder, recurrent severe without psychotic features (principal)
CPT/HCPCS: 90870; 94760

== ENCOUNTER 2018-05-13 05:40 | Day surgery (SDC) | payer OTHER ==
[2018-05-13 06:50] VITALS: BMI 18.3
[2018-05-13] MEDS ORDERED: KETAMINE HCL 500 MG/10 ML VIAL ONE (07:08)
[2018-05-13 08:34] VITALS: TEMP 97.8
[2018-05-13 09:00] VITALS: BP 129/88; PULSE 88
== END 2018-05-13 08:45 | disposition home or self-care (01) ==
LOC: FECT 05:40
PROVIDERS: ATTEND Psychiatry & Neurology Psychiatry
PROC: GZB4ZZZ Other Electroconvulsive Therapy (ICD-10-PCS; principal; 2018-05-13 07:30)
DX: F33.2 Major depressive disorder, recurrent severe without psychotic features (principal)
CPT/HCPCS: 90870; 94760

== ENCOUNTER 2018-05-22 05:42 | Day surgery (SDC) | payer OTHER ==
[2018-05-22 06:48] VITALS: BMI 18.2
[2018-05-22] MEDS ORDERED: KETAMINE HCL 500 MG/10 ML VIAL ONE (07:15)
[2018-05-22 08:31] VITALS: BP 124/85; PULSE 84; TEMP 98.8
== END 2018-05-22 08:45 | disposition home or self-care (01) ==
LOC: FECT 05:42
PROVIDERS: ATTEND Psychiatry & Neurology Psychiatry
PROC: GZB4ZZZ Other Electroconvulsive Therapy (ICD-10-PCS; principal; 2018-05-22 08:00)
DX: F33.2 Major depressive disorder, recurrent severe without psychotic features (principal)
CPT/HCPCS: 90870; 94760

== ENCOUNTER 2018-05-27 05:47 | Day surgery (SDC) | payer OTHER ==
[2018-05-27 06:33] VITALS: BMI 18.8
--- NOTE | 2018-05-27 07:17 | HP ---
Admitting History and Physical - Primary Care Physician PCP: Pedrito Hollis; Psychiatrist Dr. Sadie Hall, [facility] - Admission Chief Complaint: Depression History of Present Illness: 37 year-old male with a PMH significant for depression, anxiety, schizophrenia, and tachycardia. Presents this morning for ECT. Events over past 30 days: 1. Started Cogentin: has decreased nighttime drooling, tolerating well 2. No recent illnesses 3. Quit smoking 05/24/18, using Nicoderm patch 4. Takes metoprolol 25mg hs for tachycardia, well-controlled - Past Medical History Psych: Yes: Anxiety, Depression, Schizophrenia - Past Surgical History Past Surgical History: Yes: None - Smoking History Smoking history: Former smoker (Quit 05/24/18) Have you smoked in the past 12 months: Yes If you are a former smoker, when did you quit?: 05/24/18 - Alcohol/Substance Use Hx Alcohol Use: Yes (SOBER DATE 03/04/16) History of Substance Use: reports: None - Social History ADL: Support Services (Structured living environment) Occupation: Unemployed History of Recent Travel: No Home Medications - Allergies Allergies/Adverse Reactions: Allergies Allergy/AdvReac Type Severity Reaction Status Date / Time No Known Drug Allergies Allergy Verified 03/18/18 07:22 - Home Medications Home Medications: Ambulatory Orders Clozapine [Clozapine Odt] 100 mg PO ASDIR 01/07/14 Clozapine [Clozapine Odt] 600 mg PO HS 01/07/14 Bupropion HCl [Wellbutrin Xl] 300 mg PO DAILY 07/02/16 Esomeprazole Magnesium 40 mg PO HS 07/02/16 levETIRAcetam [Keppra Xr -] 1,000 mg PO BID 07/02/16 traZODone HCL [Desyrel -] 300 mg PO HS 07/02/16 Potassium Chloride [Klor-Con] 20 meq PO DAILY 07/03/16 Risperidone [Risperdal] 2 mg PO BID 07/11/16 Clozapine [Clozapine Odt] 100 mg PO DAILY 02/19/17 Metoprolol Succinate 25 mg PO HS 11/19/17 Nicotine Patch [Nicoderm Patch -] 1 patch TD DAILY 11/19/17 Benztropine Mesylate [Cogentin -] 1 mg PO BID 04/25/18 Family Disease History - Family Disease History Family Disease History: Respiratory: Mother (copd, ), Other: Mother Review of Systems - Review of Systems Constitutional: reports: No Symptoms Eyes: reports: No Symptoms HENT: reports: No Symptoms Neck: reports: No Symptoms Cardiovascular: reports: No Symptoms Respiratory: reports: No Symptoms Gastrointestinal: reports: No Symptoms Genitourinary: reports: No Symptoms Musculoskeletal: reports: No Symptoms Integumentary: reports: No Symptoms Neurological: reports: No Symptoms Endocrine: reports: No Symptoms Hematology/Lymphatic: reports: No Symptoms Psychiatric: reports: Anxiety, Depression Physical Examination Vital Signs: Vital Signs Temperature 97.4 F L 05/27/18 06:26 Pulse Rate 90 05/27/18 06:26 Respiratory Rate 18 05/27/18 06:26 Blood Pressure 105/77 05/27/18 06:26 O2 Sat by Pulse Oximetry (%) 100 05/27/18 06:26 Constitutional: Yes: Well Nourished Cardiovascular: Yes: Regular Rate and Rhythm, S1, S2 Respiratory: Yes: CTA Bilaterally Extremities: Yes: WNL Edema: No (No calf tenderness) Peripheral Pulses WNL: Yes Neurological: Yes: Alert, Oriented Imaging - Results EKG: Report Reviewed Assessment/Plan 37 year-old male with a PMH significant for for depression, anxiety, schizophrenia, and tachycardia. Presents today for ECT. Patient has a history of tachycardia which is well-controlled with metoprolol. Since his last ECT patient has started taking Cogentin, tolerating well. Patient has tolerated his previous ECT sessions with no known problems with anesthesia. ECT is a low risk procedure. The relative benefits outweigh the relative risks for this patient at this time. Visit type - Emergency Visit Emergency Visit: Yes Care time: The patient presented to the Emergency Department on the above date and was hospitalized for further evaluation of their emergent condition. - New Patient This patient is new to me today: Yes Date on this admission: 05/27/18 - Critical Care Critical Care patient: No
[2018-05-27] MEDS ORDERED: KETAMINE HCL 500 MG/10 ML VIAL ONE (07:26)
[2018-05-27 08:43] VITALS: TEMP 97.7
[2018-05-27 08:59] LABS: BASO % 0.7 % (0-2.0); EOS % 7.5 % (0-4.5); HEMATOCRIT 40.4 % (35.4-49); HEMOGLOBIN 13.4 GM/dl (11.7-16.9); LYMPH % 18.1 % (8-40); MCH 30.3 pg (25.7-33.7); MCHC 33.2 g/dl (32.0-35.9); MEAN CELL VOLUME 91.5 fl (80-96); MEAN PLT VOLUME 6.8 fl (7.5-11.1); MONO % 4.2 % (3.8-10.2); NEUT % 69.5 % (42.8-82.8); PLATELET COUNT 326 K/MM3 (134-434); RBC 4.42 M/mm3 (4.00-5.60); RDW 13.4 % (11.9-15.9); WHITE BLOOD COUNT 9.4 K/mm3 (4.0-10.8)
[2018-05-27 09:24] VITALS: BP 134/79; PULSE 88
[2018-05-27 09:26] LABS: ALK PHOS 65 U/L (32-92); ANION GAP 2 MMOL/L (8-16); BILIRUBIN,TOTAL 0.3 mg/dl (0.2-1.0); BLOOD UREA NITROGEN 10 mg/dl (7-18); CALCIUM 8.6 mg/dl (8.4-10.2); CHLORIDE 106 mmol/L (98-107); CO2 25 mmol/L (22-28); CREATININE 0.9 mg/dl (0.6-1.3); MAGNESIUM 1.8 mg/dL (1.8-2.4); POTASSIUM 4.3 mmol/L (3.5-5.1); SGOT/AST 17 U/L (10-42); SGPT/ALT 20 U/L (10-40); SODIUM 133 mmol/L (136-145); TOT PROT 6.4 g/dl (6.4-8.3)
[2018-05-27 09:27] LABS: GLUCOSE,RANDOM 116 mg/dl (74-106)
== END 2018-05-27 09:05 | disposition home or self-care (01) ==
LOC: FECT 05:47
PROVIDERS: ATTEND Psychiatry & Neurology Psychiatry
PROC: GZB4ZZZ Other Electroconvulsive Therapy (ICD-10-PCS; principal; 2018-05-27 07:15)
DX: F33.2 Major depressive disorder, recurrent severe without psychotic features (principal)
CPT/HCPCS: 36415; 80053; 83735; 85025; 90870; 94760

== ENCOUNTER 2018-06-03 05:49 | Day surgery (SDC) | payer OTHER ==
[2018-06-03 06:38] VITALS: TEMP 98.2; BMI 18.7
[2018-06-03] MEDS ORDERED: KETAMINE HCL 500 MG/10 ML VIAL ONE (06:54)
[2018-06-03 08:39] VITALS: BP 129/88; PULSE 87
== END 2018-06-03 08:40 | disposition home or self-care (01) ==
LOC: FECT 05:49
PROVIDERS: ATTEND Psychiatry & Neurology Psychiatry
PROC: GZB4ZZZ Other Electroconvulsive Therapy (ICD-10-PCS; principal; 2018-06-03 07:30)
DX: F33.2 Major depressive disorder, recurrent severe without psychotic features (principal)
CPT/HCPCS: 90870; 94760

== ENCOUNTER 2018-06-10 05:45 | Day surgery (SDC) | payer OTHER ==
[2018-06-10 06:39] VITALS: BMI 18.7
[2018-06-10] MEDS ORDERED: KETAMINE HCL 500 MG/10 ML VIAL ONE (07:01)
[2018-06-10] MEDS ORDERED: ONDANSETRON 4 MG/2 ML VIAL IVPUSH PRN (08:07)
[2018-06-10 08:13] VITALS: TEMP 98.1
[2018-06-10] MEDS ORDERED: LACTATED RINGERS SOLUTION 1,000 ML IV SCH (08:15)
[2018-06-10 08:44] VITALS: BP 110/77; PULSE 89
== END 2018-06-10 08:57 | disposition home or self-care (01) ==
LOC: FECT 05:45
PROVIDERS: ATTEND Psychiatry & Neurology Psychiatry
PROC: GZB4ZZZ Other Electroconvulsive Therapy (ICD-10-PCS; principal; 2018-06-10 07:30)
DX: F33.2 Major depressive disorder, recurrent severe without psychotic features (principal)
CPT/HCPCS: 90870; 94760

== ENCOUNTER 2018-06-17 05:45 | Day surgery (SDC) | payer OTHER ==
[2018-06-17 07:02] VITALS: BMI 18.9
[2018-06-17] MEDS ORDERED: KETAMINE HCL 500 MG/10 ML VIAL ONE (07:12)
[2018-06-17] MEDS ORDERED: ONDANSETRON 4 MG/2 ML VIAL IVPUSH PRN (07:19)
[2018-06-17 08:18] VITALS: TEMP 97.9
[2018-06-17 08:53] VITALS: BP 129/89; PULSE 84
== END 2018-06-17 09:34 | disposition home or self-care (01) ==
LOC: FECT 05:45
PROVIDERS: ATTEND Psychiatry & Neurology Psychiatry
PROC: GZB4ZZZ Other Electroconvulsive Therapy (ICD-10-PCS; principal; 2018-06-17 08:15)
DX: F33.2 Major depressive disorder, recurrent severe without psychotic features (principal)
CPT/HCPCS: 90870; 94760

== ENCOUNTER 2018-06-24 05:41 | Day surgery (SDC) | payer OTHER ==
[2018-06-17 14:49] VITALS: BMI 18.9
[2018-06-24] MEDS ORDERED: KETAMINE HCL 500 MG/10 ML VIAL ONE (07:35)
[2018-06-24 09:08] VITALS: TEMP 97.8
[2018-06-24 09:14] VITALS: BP 137/83; PULSE 88
--- NOTE | 2018-06-24 09:35 | HP ---
CHIEF COMPLAINT: Major Depressive Disorder PCP: Dr. Pedrito Hollis Primary Psychiatrist: Dr. Sadie Hall, [facility] HISTORY OF PRESENT ILLNESS: 37 year-old male with a PMH significant for depression, anxiety, schizophrenia, and tachycardia. Patient has been undergoing ECT since 2015. Presents today for ECT. Recent events: * taking Cogentin 1mg BID, tolerating well * not smoked for 6 weeks * continues to take metoprolol for tachycardia, well-controlled PAST MEDICAL HISTORY: Depression Anxiety Schizophrenia Tachycardia PAST SURGICAL HISTORY: Knee surgery 2007 Social History: Smoking: quit 05/24/18 Alcohol: sober 03/04/16 Drugs: no Family History: Allergies No Known Drug Allergies Allergy (Verified 06/17/18 14:47) HOME MEDICATIONS: Home Medications Medication Instructions Recorded Clozapine [Clozapine Odt] 100 mg PO ASDIR 01/07/14 Clozapine [Clozapine Odt] 600 mg PO HS 01/07/14 Bupropion HCl [Wellbutrin Xl] 300 mg PO DAILY 07/02/16 Esomeprazole Magnesium 40 mg PO HS 07/02/16 levETIRAcetam [Keppra Xr -] 1,000 mg PO BID 07/02/16 traZODone HCL [Desyrel -] 300 mg PO HS 07/02/16 Potassium Chloride [Klor-Con] 20 meq PO DAILY 07/03/16 Risperidone [Risperdal] 2 mg PO BID 07/11/16 Clozapine [Clozapine Odt] 100 mg PO DAILY 02/19/17 Metoprolol Succinate 25 mg PO HS 11/19/17 Nicotine Patch [Nicoderm Patch -] 1 patch TD DAILY 11/19/17 Benztropine Mesylate [Cogentin -] 1 mg PO BID 04/25/18 REVIEW OF SYSTEMS CONSTITUTIONAL: Absent: fever, chills, diaphoresis, generalized weakness, malaise, loss of appetite, weight change HEENT: Absent: rhinorrhea, nasal congestion, throat pain, throat swelling, difficulty swallowing, mouth swelling, ear pain, eye pain, visual changes CARDIOVASCULAR: Absent: chest pain, syncope, palpitations, irregular heart rate, lightheadedness , peripheral edema RESPIRATORY: Absent: cough, shortness of breath, dyspnea with exertion, orthopnea, wheezing, stridor, hemoptysis GASTROINTESTINAL: Absent: abdominal pain, abdominal distension, nausea, vomiting, diarrhea, constipation, melena, hematochezia GENITOURINARY: Absent: dysuria, frequency, urgency, hesitancy, hematuria, flank pain, genital pain MUSCULOSKELETAL: Absent: myalgia, arthralgia, joint swelling, back pain, neck pain SKIN: Absent: rash, itching, pallor HEMATOLOGIC/IMMUNOLOGIC: Absent: easy bleeding, easy bruising, lymphadenopathy, frequent infections ENDOCRINE: Absent: unexplained weight gain, unexplained weight loss, heat intolerance, cold intolerance NEUROLOGIC: Absent: headache, focal weakness or paresthesias, dizziness, unsteady gait, seizure, mental status changes, bladder or bowel incontinence PSYCHIATRIC: Absent: anxiety, depression, suicidal or homicidal ideation, hallucinations. PHYSICAL EXAMINATION Vital Signs - 24 hr 06/24/18 06/24/18 06/24/18 06:54 08:10 08:15 Temperature 97.6 F Pulse Rate 88 92 H 97 H Respiratory 16 16 19 Rate Blood Pressure 116/83 111/71 121/86 O2 Sat by Pulse 99 98 99 Oximetry (%) 06/24/18 06/24/18 06/24/18 08:20 08:25 08:36 Temperature 97.6 F Pulse Rate 96 H 93 H 93 H Respiratory 14 13 13 Rate Blood Pressure 125/80 130/93 133/78 O2 Sat by Pulse 99 100 Oximetry (%) 06/24/18 06/24/18 08:40 09:10 Temperature 97.8 F 97.8 F Pulse Rate 91 H 88 Respiratory 18 18 Rate Blood Pressure 133/85 137/83 O2 Sat by Pulse 100 100 Oximetry (%) GENERAL: Awake, alert, and fully oriented, in no acute distress. HEAD: Normal with no signs of trauma. LUNGS: Breath sounds equal, clear to auscultation bilaterally. No wheezes, and no crackles. No accessory muscle use. HEART: Regular rate and rhythm, S1 and S2 ABDOMEN: Soft, nontender, not distended MUSCULOSKELETAL: Normal range of motion at all joints. No bony deformities or tenderness. No CVA tenderness. UPPER EXTREMITIES: 2+ pulses, warm, well-perfused. No cyanosis. No clubbing. No peripheral edema. LOWER EXTREMITIES: 2+ pulses, warm, well-perfused. No calf tenderness. No peripheral edema. NEUROLOGICAL: Cranial nerves II-XII intact. Normal speech. Normal gait. ASSESSMENT/PLAN 37 year-old male with a PMH significant for major depressive disorder presents today for ECT. Cardiac --h/o tachycardia, on metoprolol, well-controlled --Revised Cardiac Risk Index for Pre-Operative Risk: 0 points, 0.4% risk of major cardiac event Pulmonary --no pulmonary history Neurological --no neurological or neurosurgical history; no history of trauma Anesthesia --no known history of problems with anesthesia ECT is a low risk procedure. The relative benefits of the planned procedure outweigh the relative risks for this patient at this time. Visit type - Emergency Visit Emergency Visit: No - New Patient This patient is new to me today: Yes Date on this admission: 06/24/18 - Critical Care Critical Care patient: No
--- NOTE | 2018-06-24 13:02 | EKG ---
Test Reason : Blood Pressure : / mmHG Vent. Rate : 084 BPM Atrial Rate : 084 BPM P-R Int : 158 ms QRS Dur : 082 ms QT Int : 368 ms P-R-T Axes : 066 043 058 degrees QTc Int : 434 ms NORMAL SINUS RHYTHM NORMAL ECG WHEN COMPARED WITH ECG OF 24-DEC-2017 08:19, NO SIGNIFICANT CHANGE WAS FOUND Confirmed by Irvin Ariza ([id number]) on 06/24/2018 1:02:37 PM Referred By: Fran Bundy Confirmed By:Irvin Ariza
== END 2018-06-24 09:25 | disposition home or self-care (01) ==
LOC: FECT 05:41
PROVIDERS: ATTEND Psychiatry & Neurology Psychiatry
PROC: GZB4ZZZ Other Electroconvulsive Therapy (ICD-10-PCS; principal; 2018-06-24 07:00)
DX: F33.2 Major depressive disorder, recurrent severe without psychotic features (principal)
CPT/HCPCS: 90870; 93005; 94760

== ENCOUNTER 2018-07-01 05:47 | Day surgery (SDC) | payer OTHER ==
[2018-07-01 06:41] VITALS: BMI 18.6
[2018-07-01] MEDS ORDERED: KETAMINE HCL 500 MG/10 ML VIAL ONE (07:37)
[2018-07-01 08:38] VITALS: TEMP 97.4
[2018-07-01 09:04] VITALS: BP 136/84; PULSE 78
== END 2018-07-01 09:19 | disposition home or self-care (01) ==
LOC: FECT 05:47
PROVIDERS: ATTEND Psychiatry & Neurology Psychiatry
PROC: GZB4ZZZ Other Electroconvulsive Therapy (ICD-10-PCS; principal; 2018-07-01 07:45)
DX: F33.2 Major depressive disorder, recurrent severe without psychotic features (principal)
CPT/HCPCS: 90870; 94760

== ENCOUNTER 2018-07-11 05:42 | Day surgery (SDC) | payer OTHER ==
[2018-07-11 07:02] VITALS: TEMP 98.2; BMI 18.6
[2018-07-11] MEDS ORDERED: KETAMINE HCL 500 MG/10 ML VIAL ONE (07:20)
[2018-07-11 09:32] VITALS: BP 122/81; PULSE 85
[2018-07-11] MEDS ORDERED: ONDANSETRON 4 MG/2 ML VIAL IVPUSH PRN (14:08)
[2018-07-11] MEDS ORDERED: LACTATED RINGERS SOLUTION 1,000 ML IV SCH (14:15)
== END 2018-07-11 09:30 | disposition home or self-care (01) ==
LOC: FECT 05:42
PROVIDERS: ATTEND Psychiatry & Neurology Psychiatry
PROC: GZB4ZZZ Other Electroconvulsive Therapy (ICD-10-PCS; principal; 2018-07-11 07:15)
DX: F33.2 Major depressive disorder, recurrent severe without psychotic features (principal)
CPT/HCPCS: 90870; 94760

== ENCOUNTER 2018-07-17 05:55 | Day surgery (SDC) | payer OTHER ==
[2018-07-11 10:38] VITALS: BMI 18.6
[2018-07-17] MEDS ORDERED: KETAMINE HCL 500 MG/10 ML VIAL ONE (07:52)
[2018-07-17 08:50] VITALS: TEMP 97.7
[2018-07-17 09:15] VITALS: BP 123/77; PULSE 93
== END 2018-07-17 09:30 | disposition home or self-care (01) ==
LOC: FECT 05:55
PROVIDERS: ATTEND Psychiatry & Neurology Psychiatry
PROC: GZB4ZZZ Other Electroconvulsive Therapy (ICD-10-PCS; principal; 2018-07-17 08:30)
DX: F32.9 Major depressive disorder, single episode, unspecified (principal)
CPT/HCPCS: 90870; 94760

== ENCOUNTER 2018-07-22 05:46 | Day surgery (SDC) | payer OTHER ==
[2018-07-22 06:26] VITALS: BMI 18.2
[2018-07-22] MEDS ORDERED: KETAMINE HCL SYRINGES 150 MG/3 ML VIAL ONE (07:01)
[2018-07-22 08:04] VITALS: TEMP 98.5
[2018-07-22 08:34] VITALS: BP 130/89; PULSE 106
--- NOTE | 2018-07-22 08:40 | HP ---
CHIEF COMPLAINT: Major Depressive Disorder PCP: Dr. Pedrito Hollis Primary Psychiatrist: Dr. Sadie Hall, [facility] HISTORY OF PRESENT ILLNESS: 37 year-old male with a PMH significant for depression, anxiety, schizophrenia, and tachycardia. Patient has been undergoing ECT since 2015. Presents today for ECT. Recent events: * none reported PAST MEDICAL HISTORY: Depression Anxiety Schizophrenia Tachycardia PAST SURGICAL HISTORY: Knee surgery 2007 Social History: Smoking: quit 05/24/18 Alcohol: sober 03/04/16 Drugs: no Allergies No Known Drug Allergies Allergy (Verified 06/17/18 14:47) HOME MEDICATIONS: Home Medications Medication Instructions Recorded Clozapine [Clozapine Odt] 100 mg PO ASDIR 01/07/14 Clozapine [Clozapine Odt] 600 mg PO HS 01/07/14 Bupropion HCl [Wellbutrin Xl] 300 mg PO DAILY 07/02/16 Esomeprazole Magnesium 40 mg PO HS 07/02/16 levETIRAcetam [Keppra Xr -] 1,000 mg PO BID 07/02/16 traZODone HCL [Desyrel -] 300 mg PO HS 07/02/16 Potassium Chloride [Klor-Con] 20 meq PO DAILY 07/03/16 Risperidone [Risperdal] 2 mg PO BID 07/11/16 Clozapine [Clozapine Odt] 100 mg PO DAILY 02/19/17 Metoprolol Succinate 25 mg PO HS 11/19/17 Nicotine Patch [Nicoderm Patch -] 1 patch TD DAILY 11/19/17 Benztropine Mesylate [Cogentin -] 1 mg PO BID 04/25/18 REVIEW OF SYSTEMS CONSTITUTIONAL: Absent: fever, chills, diaphoresis, generalized weakness, malaise, loss of appetite, weight change HEENT: Absent: rhinorrhea, nasal congestion, throat pain, throat swelling, difficulty swallowing, mouth swelling, ear pain, eye pain, visual changes CARDIOVASCULAR: Absent: chest pain, syncope, palpitations, irregular heart rate, lightheadedness , peripheral edema RESPIRATORY: Absent: cough, shortness of breath, dyspnea with exertion, orthopnea, wheezing, stridor, hemoptysis GASTROINTESTINAL: Absent: abdominal pain, abdominal distension, nausea, vomiting, diarrhea, constipation, melena, hematochezia GENITOURINARY: Absent: dysuria, frequency, urgency, hesitancy, hematuria, flank pain, genital pain MUSCULOSKELETAL: Absent: myalgia, arthralgia, joint swelling, back pain, neck pain SKIN: Absent: rash, itching, pallor HEMATOLOGIC/IMMUNOLOGIC: Absent: easy bleeding, easy bruising, lymphadenopathy, frequent infections ENDOCRINE: Absent: unexplained weight gain, unexplained weight loss, heat intolerance, cold intolerance NEUROLOGIC: Absent: headache, focal weakness or paresthesias, dizziness, unsteady gait, seizure, mental status changes, bladder or bowel incontinence PHYSICAL EXAMINATION Vital Signs - 24 hr 07/22/18 07/22/18 07/22/18 06:24 07:25 07:30 Temperature 97.8 F Pulse Rate 95 H 99 H 100 H Respiratory 18 16 16 Rate Blood Pressure 122/78 136/93 133/94 O2 Sat by Pulse 100 99 99 Oximetry (%) 07/22/18 07/22/18 07/22/18 07:35 07:40 07:55 Temperature Pulse Rate 97 H 97 H 102 H Respiratory 17 17 17 Rate Blood Pressure 137/93 148/91 130/88 O2 Sat by Pulse 99 99 99 Oximetry (%) 07/22/18 07/22/18 07/22/18 08:01 08:03 08:32 Temperature 97.8 F 98.5 F Pulse Rate 102 H 97 H 106 H Respiratory 17 18 18 Rate Blood Pressure 130/88 139/98 130/89 O2 Sat by Pulse 99 97 Oximetry (%) GENERAL: Awake, alert, and fully oriented, in no acute distress. HEAD: Normal with no signs of trauma. EYES: Pupils equal, round and reactive to light, sclera anicteric, conjunctiva clear. LUNGS: Breath sounds equal, clear to auscultation bilaterally. No wheezes, and no crackles. No accessory muscle use. HEART: Regular rate and rhythm, normal S1 and S2 ABDOMEN: Soft, nontender, not distended MUSCULOSKELETAL: Normal range of motion at all joints. No bony deformities or tenderness. No CVA tenderness. UPPER EXTREMITIES: 2+ pulses, warm, well-perfused. No cyanosis. No clubbing. No peripheral edema. LOWER EXTREMITIES: 2+ pulses, warm, well-perfused. No calf tenderness. No peripheral edema. NEUROLOGICAL: Cranial nerves II-XII intact. Normal speech. ASSESSMENT/PLAN: 37 year-old male with a PMH significant for major depressive disorder presents today for ECT. Cardiac --no cardiac history --Revised Cardiac Risk Index for Pre-Operative Risk: 0 points, 0.4% risk of major cardiac event Pulmonary --no pulmonary history Neurological --no neurological or neurosurgical history; no history of trauma Anesthesia --no reported problems with anesthesia ECT is a low risk procedure. The relative benefits of the planned procedure outweigh the relative risks for this patient at this time. Visit type - Emergency Visit Emergency Visit: No - New Patient This patient is new to me today: Yes Date on this admission: 07/22/18 - Critical Care Critical Care patient: No
== END 2018-07-22 08:40 | disposition home or self-care (01) ==
LOC: FECT 05:46
PROVIDERS: ATTEND Psychiatry & Neurology Psychiatry
PROC: GZB4ZZZ Other Electroconvulsive Therapy (ICD-10-PCS; principal; 2018-07-22 07:15)
DX: F32.9 Major depressive disorder, single episode, unspecified (principal)
CPT/HCPCS: 90870; 94760

== ENCOUNTER 2018-07-29 05:44 | Day surgery (SDC) | payer OTHER ==
[2018-07-29] MEDS ORDERED: ONDANSETRON 4 MG/2 ML VIAL IVPUSH PRN (06:40)
[2018-07-29 07:04] VITALS: TEMP 98.1; BMI 18.4
[2018-07-29] MEDS ORDERED: KETAMINE HCL SYRINGES 150 MG/3 ML VIAL ONE (07:18)
[2018-07-29 08:56] VITALS: BP 125/84; PULSE 88
== END 2018-07-29 09:00 | disposition home or self-care (01) ==
LOC: FECT 05:44
PROVIDERS: ATTEND Psychiatry & Neurology Psychiatry
PROC: GZB4ZZZ Other Electroconvulsive Therapy (ICD-10-PCS; principal; 2018-07-29 07:45)
DX: F33.2 Major depressive disorder, recurrent severe without psychotic features (principal)
CPT/HCPCS: 90870; 94760

== ENCOUNTER 2018-08-05 05:44 | Day surgery (SDC) | payer OTHER ==
[2018-08-05 06:34] VITALS: BMI 18.3
[2018-08-05] MEDS ORDERED: KETAMINE HCL SYRINGES 150 MG/3 ML VIAL ONE (06:58)
[2018-08-05 08:06] VITALS: TEMP 97
[2018-08-05 08:41] VITALS: BP 117/77; PULSE 84
== END 2018-08-05 09:00 | disposition home or self-care (01) ==
LOC: FECT 05:44
PROVIDERS: ATTEND Psychiatry & Neurology Psychiatry
PROC: GZB4ZZZ Other Electroconvulsive Therapy (ICD-10-PCS; principal; 2018-08-05 07:00)
DX: F33.2 Major depressive disorder, recurrent severe without psychotic features (principal)
CPT/HCPCS: 90870; 94760

== ENCOUNTER 2018-08-12 05:47 | Day surgery (SDC) | payer OTHER ==
[2018-08-12 06:51] VITALS: TEMP 98.2; BMI 18.3
[2018-08-12] MEDS ORDERED: KETAMINE HCL SYRINGES 150 MG/3 ML ONE (07:04)
[2018-08-12] MEDS ORDERED: ONDANSETRON 4 MG/2 ML VIAL IVPUSH PRN (08:48)
[2018-08-12] MEDS ORDERED: ACETAMINOPHEN 325 MG TABLET (FP) PO PRN (08:48)
[2018-08-12 08:59] VITALS: BP 118/87; PULSE 95
== END 2018-08-12 09:02 | disposition home or self-care (01) ==
LOC: FECT 05:47
PROVIDERS: ATTEND Psychiatry & Neurology Psychiatry
PROC: GZB4ZZZ Other Electroconvulsive Therapy (ICD-10-PCS; principal; 2018-08-12 07:45)
DX: F33.2 Major depressive disorder, recurrent severe without psychotic features (principal)
CPT/HCPCS: 90870; 94760

== ENCOUNTER 2018-08-19 05:44 | Day surgery (SDC) | payer OTHER ==
[2018-08-12 16:22] VITALS: BMI 18.3
[2018-08-19 06:31] VITALS: TEMP 97.5
[2018-08-19] MEDS ORDERED: KETAMINE HCL SYRINGES 150 MG/3 ML ONE (06:58)
[2018-08-19 08:22] VITALS: BP 129/90; PULSE 89
--- NOTE | 2018-08-19 08:50 | HP ---
CHIEF COMPLAINT: Major Depressive Disorder PCP: Dr. Pedrito Hollis Primary Psychiatrist: Dr. Sadie Hall, [facility] HISTORY OF PRESENT ILLNESS: 37 year-old male with a PMH significant for depression, anxiety, schizophrenia, and tachycardia. Patient has been undergoing ECT since 2015. Presents today for ECT. Recent events: * none reported PAST MEDICAL HISTORY: Depression Anxiety Schizophrenia Tachycardia PAST SURGICAL HISTORY: Knee surgery 2007 Social History: Smoking: quit 05/24/18 Alcohol: sober 03/04/16 Drugs: no Allergies No Known Drug Allergies Allergy (Verified 08/12/18 16:18) HOME MEDICATIONS: Home Medications Medication Instructions Recorded Clozapine [Clozapine Odt] 100 mg PO ASDIR 01/07/14 Clozapine [Clozapine Odt] 600 mg PO HS 01/07/14 Bupropion HCl [Wellbutrin Xl] 300 mg PO DAILY 07/02/16 Esomeprazole Magnesium 40 mg PO HS 07/02/16 levETIRAcetam [Keppra Xr -] 1,000 mg PO BID 07/02/16 traZODone HCL [Desyrel -] 300 mg PO HS 07/02/16 Potassium Chloride [Klor-Con] 20 meq PO DAILY 07/03/16 Risperidone [Risperdal] 2 mg PO BID 07/11/16 Clozapine [Clozapine Odt] 100 mg PO DAILY 02/19/17 Metoprolol Succinate 25 mg PO HS 11/19/17 Nicotine Patch [Nicoderm Patch -] 1 patch TD DAILY 11/19/17 Benztropine Mesylate [Cogentin -] 1 mg PO BID 04/25/18 REVIEW OF SYSTEMS CONSTITUTIONAL: Absent: fever, chills, diaphoresis, generalized weakness, malaise, loss of appetite, weight change HEENT: Absent: rhinorrhea, nasal congestion, throat pain, throat swelling, difficulty swallowing, mouth swelling, ear pain, eye pain, visual changes CARDIOVASCULAR: Absent: chest pain, syncope, palpitations, irregular heart rate, lightheadedness , peripheral edema RESPIRATORY: Absent: cough, shortness of breath, dyspnea with exertion, orthopnea, wheezing, stridor, hemoptysis GASTROINTESTINAL: Absent: abdominal pain, abdominal distension, nausea, vomiting, diarrhea, constipation, melena, hematochezia GENITOURINARY: Absent: dysuria, frequency, urgency, hesitancy, hematuria, flank pain, genital pain MUSCULOSKELETAL: Absent: myalgia, arthralgia, joint swelling, back pain, neck pain SKIN: Absent: rash, itching, pallor HEMATOLOGIC/IMMUNOLOGIC: Absent: easy bleeding, easy bruising, lymphadenopathy, frequent infections ENDOCRINE: Absent: unexplained weight gain, unexplained weight loss, heat intolerance, cold intolerance NEUROLOGIC: Absent: headache, focal weakness or paresthesias, dizziness, unsteady gait, seizure, mental status changes, bladder or bowel incontinence PHYSICAL EXAMINATION Vital Signs - 24 hr 08/19/18 08/19/18 08/19/18 06:28 07:20 07:25 Temperature 97.5 F L Pulse Rate 88 93 H 96 H Respiratory 18 18 17 Rate Blood Pressure 115/75 105/65 118/77 O2 Sat by Pulse 100 99 98 Oximetry (%) 08/19/18 08/19/18 08/19/18 07:30 07:48 07:50 Temperature 97.5 F L Pulse Rate 96 H 96 H 92 H Respiratory 16 16 18 Rate Blood Pressure 126/87 136/97 132/92 O2 Sat by Pulse 100 99 Oximetry (%) 08/19/18 08:20 Temperature 97.5 F L Pulse Rate 89 Respiratory 18 Rate Blood Pressure 129/90 O2 Sat by Pulse 99 Oximetry (%) GENERAL: Awake, alert, and fully oriented, in no acute distress. HEAD: Normal with no signs of trauma. EYES: Pupils equal, round and reactive to light, sclera anicteric, conjunctiva clear. LUNGS: Breath sounds equal, clear to auscultation bilaterally. No wheezes, and no crackles. No accessory muscle use. HEART: Regular rate and rhythm, normal S1 and S2 ABDOMEN: Soft, nontender, not distended MUSCULOSKELETAL: Normal range of motion at all joints. No bony deformities or tenderness. No CVA tenderness. UPPER EXTREMITIES: 2+ pulses, warm, well-perfused. No cyanosis. No clubbing. No peripheral edema. LOWER EXTREMITIES: 2+ pulses, warm, well-perfused. No calf tenderness. No peripheral edema. NEUROLOGICAL: Cranial nerves II-XII intact. Normal speech. ASSESSMENT/PLAN: 37 year-old male with a PMH significant for major depressive disorder presents today for ECT. Cardiac --no cardiac history --Revised Cardiac Risk Index for Pre-Operative Risk: 0 points, 0.4% risk of major cardiac event Pulmonary --no pulmonary history Neurological --no neurological or neurosurgical history; no history of trauma Anesthesia --no reported problems with anesthesia ECT is a low risk procedure. The relative benefits of the planned procedure outweigh the relative risks for this patient at this time. Visit type - Emergency Visit Emergency Visit: No - New Patient This patient is new to me today: Yes Date on this admission: 08/19/18 - Critical Care Critical Care patient: No
== END 2018-08-19 09:00 | disposition home or self-care (01) ==
LOC: FECT 05:44
PROVIDERS: ATTEND Psychiatry & Neurology Psychiatry
PROC: GZB4ZZZ Other Electroconvulsive Therapy (ICD-10-PCS; principal; 2018-08-19 07:15)
DX: F32.9 Major depressive disorder, single episode, unspecified (principal)
CPT/HCPCS: 90870; 94760

== ENCOUNTER 2018-08-29 05:45 | Day surgery (SDC) | payer OTHER ==
[2018-08-29 07:16] VITALS: BMI 18.3
[2018-08-29] MEDS ORDERED: KETAMINE HCL SYRINGES 150 MG/3 ML ONE (07:34)
[2018-08-29 08:55] VITALS: TEMP 97.5
[2018-08-29 09:00] VITALS: BP 135/90; PULSE 92
== END 2018-08-29 09:15 | disposition home or self-care (01) ==
LOC: FECT 05:45
PROVIDERS: ATTEND Psychiatry & Neurology Psychiatry
PROC: GZB4ZZZ Other Electroconvulsive Therapy (ICD-10-PCS; principal; 2018-08-29 07:30)
DX: F32.9 Major depressive disorder, single episode, unspecified (principal)
CPT/HCPCS: 90870; 94760

== ENCOUNTER 2018-09-02 05:52 | Day surgery (SDC) | payer OTHER ==
[2018-08-29 11:14] VITALS: BMI 18.3
[2018-09-02] MEDS ORDERED: KETAMINE HCL SYRINGES 150 MG/3 ML ONE (07:02)
[2018-09-02] MEDS ORDERED: ACETAMINOPHEN 325 MG TABLET (FP) PO PRN (07:21)
[2018-09-02] MEDS ORDERED: PROMETHAZINE HCL 25 MG/1 ML VIAL IVPUSH PRN (07:21)
[2018-09-02] MEDS ORDERED: LACTATED RINGERS SOLUTION 1,000 ML IV SCH (07:30)
[2018-09-02 08:13] VITALS: TEMP 97.6
[2018-09-02 08:43] VITALS: BP 129/84; PULSE 81
== END 2018-09-02 08:44 | disposition home or self-care (01) ==
LOC: FECT 05:52
PROVIDERS: ATTEND Psychiatry & Neurology Psychiatry
PROC: GZB4ZZZ Other Electroconvulsive Therapy (ICD-10-PCS; principal; 2018-09-02 08:15)
DX: F32.9 Major depressive disorder, single episode, unspecified (principal)
CPT/HCPCS: 90870; 94760

== ENCOUNTER 2018-09-09 05:47 | Day surgery (SDC) | payer OTHER ==
[2018-09-09 06:54] VITALS: TEMP 98.1; BMI 19.3
[2018-09-09] MEDS ORDERED: KETAMINE HCL SYRINGES 150 MG/3 ML ONE (07:12)
[2018-09-09 08:45] VITALS: BP 133/90; PULSE 89
== END 2018-09-09 08:50 | disposition home or self-care (01) ==
LOC: FECT 05:47
PROVIDERS: ATTEND Psychiatry & Neurology Psychiatry
PROC: GZB4ZZZ Other Electroconvulsive Therapy (ICD-10-PCS; principal; 2018-09-09 07:30)
DX: F32.9 Major depressive disorder, single episode, unspecified (principal)
CPT/HCPCS: 90870; 94760

== ENCOUNTER 2018-09-16 05:43 | Day surgery (SDC) | payer OTHER ==
[2018-09-16 06:31] VITALS: BMI 19.2
[2018-09-16] MEDS ORDERED: KETAMINE HCL SYRINGES 150 MG/3 ML ONE (06:58)
[2018-09-16 07:58] VITALS: TEMP 98
--- NOTE | 2018-09-16 08:10 | HP ---
CHIEF COMPLAINT: Major Depressive Disorder PCP: Dr. Pedrito Hollis Primary Psychiatrist: Dr. Sadie Hall, [facility] HISTORY OF PRESENT ILLNESS: 37 year-old male with a PMH significant for depression, anxiety, schizophrenia, and tachycardia. Patient has been undergoing ECT since 2015. Presents today for ECT. Recent events: * none reported PAST MEDICAL HISTORY: Depression Anxiety Schizophrenia Tachycardia PAST SURGICAL HISTORY: Knee surgery 2007 Social History: Smoking: quit 05/24/18 Alcohol: sober 03/04/16 Drugs: no Allergies No Known Drug Allergies Allergy (Verified 08/29/18 11:11) HOME MEDICATIONS: Home Medications Medication Instructions Recorded Clozapine [Clozapine Odt] 100 mg PO ASDIR 01/07/14 Clozapine [Clozapine Odt] 600 mg PO HS 01/07/14 Bupropion HCl [Wellbutrin Xl] 300 mg PO DAILY 07/02/16 Esomeprazole Magnesium 40 mg PO HS 07/02/16 levETIRAcetam [Keppra Xr -] 1,000 mg PO BID 07/02/16 traZODone HCL [Desyrel -] 300 mg PO HS 07/02/16 Potassium Chloride [Klor-Con] 20 meq PO DAILY 07/03/16 Risperidone [Risperdal] 2 mg PO BID 07/11/16 Clozapine [Clozapine Odt] 100 mg PO DAILY 02/19/17 Metoprolol Succinate 25 mg PO HS 11/19/17 Benztropine Mesylate [Cogentin -] 1 mg PO BID 04/25/18 Nicotine Patch [Nicoderm Patch -] 1 patch TD DAILY 08/29/18 REVIEW OF SYSTEMS CONSTITUTIONAL: Absent: fever, chills, diaphoresis, generalized weakness, malaise, loss of appetite, weight change HEENT: Absent: rhinorrhea, nasal congestion, throat pain, throat swelling, difficulty swallowing, mouth swelling, ear pain, eye pain, visual changes CARDIOVASCULAR: Absent: chest pain, syncope, palpitations, irregular heart rate, lightheadedness , peripheral edema RESPIRATORY: Absent: cough, shortness of breath, dyspnea with exertion, orthopnea, wheezing, stridor, hemoptysis GASTROINTESTINAL: Absent: abdominal pain, abdominal distension, nausea, vomiting, diarrhea, constipation, melena, hematochezia GENITOURINARY: Absent: dysuria, frequency, urgency, hesitancy, hematuria, flank pain, genital pain MUSCULOSKELETAL: Absent: myalgia, arthralgia, joint swelling, back pain, neck pain SKIN: Absent: rash, itching, pallor HEMATOLOGIC/IMMUNOLOGIC: Absent: easy bleeding, easy bruising, lymphadenopathy, frequent infections ENDOCRINE: Absent: unexplained weight gain, unexplained weight loss, heat intolerance, cold intolerance NEUROLOGIC: Absent: headache, focal weakness or paresthesias, dizziness, unsteady gait, seizure, mental status changes, bladder or bowel incontinence PHYSICAL EXAMINATION Vital Signs - 24 hr 09/16/18 09/16/18 09/16/18 06:26 07:20 07:50 Temperature 97.6 F 98.0 F Pulse Rate 87 94 H 98 H Respiratory 18 16 18 Rate Blood Pressure 127/83 131/87 130/92 O2 Sat by Pulse 100 100 97 Oximetry (%) GENERAL: Awake, alert, and fully oriented, in no acute distress. HEAD: Normal with no signs of trauma. EYES: Pupils equal, round and reactive to light, sclera anicteric, conjunctiva clear. LUNGS: Breath sounds equal, clear to auscultation bilaterally. No wheezes, and no crackles. No accessory muscle use. HEART: Regular rate and rhythm, normal S1 and S2 ABDOMEN: Soft, nontender, not distended MUSCULOSKELETAL: Normal range of motion at all joints. No bony deformities or tenderness. No CVA tenderness. UPPER EXTREMITIES: 2+ pulses, warm, well-perfused. No cyanosis. No clubbing. No peripheral edema. LOWER EXTREMITIES: 2+ pulses, warm, well-perfused. No calf tenderness. No peripheral edema. NEUROLOGICAL: Cranial nerves II-XII intact. Normal speech. ASSESSMENT/PLAN: 37 year-old male with a PMH significant for depression, anxiety, schizophrenia, and tachycardia. Presents today for ECT. Cardiac --no cardiac history --Revised Cardiac Risk Index for Pre-Operative Risk: 0 points, 0.4% risk of major cardiac event Pulmonary --no pulmonary history Neurological --no neurological or neurosurgical history; no history of trauma Anesthesia --no reported problems with anesthesia ECT is a low risk procedure. The relative benefits of the planned procedure outweigh the relative risks for this patient at this time. Visit type - Emergency Visit Emergency Visit: No - New Patient This patient is new to me today: Yes Date on this admission: 09/16/18 - Critical Care Critical Care patient: No
[2018-09-16 08:21] VITALS: BP 131/90; PULSE 89
[2018-09-16] MEDS ORDERED: LACTATED RINGERS SOLUTION 1,000 ML IV SCH (11:45)
== END 2018-09-16 08:30 | disposition home or self-care (01) ==
LOC: FECT 05:43
PROVIDERS: ATTEND Psychiatry & Neurology Psychiatry
PROC: GZB4ZZZ Other Electroconvulsive Therapy (ICD-10-PCS; principal; 2018-09-16 07:30)
DX: F32.9 Major depressive disorder, single episode, unspecified (principal)
CPT/HCPCS: 90870; 94760

== ENCOUNTER 2018-09-23 05:48 | Day surgery (SDC) | payer OTHER ==
[2018-09-23 06:54] VITALS: BMI 19.2
[2018-09-23] MEDS ORDERED: KETAMINE HCL SYRINGES 150 MG/3 ML ONE (07:12)
[2018-09-23] MEDS ORDERED: ONDANSETRON 4 MG/2 ML VIAL IVPUSH PRN (07:21)
[2018-09-23] MEDS ORDERED: ACETAMINOPHEN 325 MG TABLET (FP) PO PRN (07:21)
[2018-09-23 08:30] VITALS: TEMP 97.4
[2018-09-23 08:55] VITALS: BP 129/89; PULSE 88
== END 2018-09-23 09:00 | disposition home or self-care (01) ==
LOC: FECT 05:48
PROVIDERS: ATTEND Psychiatry & Neurology Psychiatry
PROC: GZB4ZZZ Other Electroconvulsive Therapy (ICD-10-PCS; principal; 2018-09-23 07:45)
DX: F32.9 Major depressive disorder, single episode, unspecified (principal)
CPT/HCPCS: 90870; 94760

== ENCOUNTER 2018-09-30 05:40 | Day surgery (SDC) | payer OTHER ==
[2018-09-24 18:01] VITALS: BMI 19.2
[2018-09-30] MEDS ORDERED: KETAMINE HCL SYRINGES 150 MG/3 ML ONE (06:50)
[2018-09-30 08:39] VITALS: TEMP 97.8
[2018-09-30 08:40] VITALS: BP 126/87; PULSE 81
== END 2018-09-30 08:45 | disposition home or self-care (01) ==
LOC: FECT 05:40
PROVIDERS: ATTEND Psychiatry & Neurology Psychiatry
PROC: GZB4ZZZ Other Electroconvulsive Therapy (ICD-10-PCS; principal; 2018-09-30 07:00)
DX: F32.9 Major depressive disorder, single episode, unspecified (principal)
CPT/HCPCS: 90870; 94760

== ENCOUNTER 2018-10-07 05:41 | Day surgery (SDC) | payer OTHER ==
[2018-10-07 07:11] VITALS: BMI 19.2
[2018-10-07] MEDS ORDERED: KETAMINE HCL SYRINGES 150 MG/3 ML ONE (07:42)
[2018-10-07 09:07] VITALS: PULSE 89; TEMP 97.8
[2018-10-07 09:20] VITALS: BP 137/88
== END 2018-10-07 09:20 | disposition home or self-care (01) ==
LOC: FECT 05:41
PROVIDERS: ATTEND Psychiatry & Neurology Psychiatry
PROC: GZB4ZZZ Other Electroconvulsive Therapy (ICD-10-PCS; principal; 2018-10-07 07:45)
DX: F32.9 Major depressive disorder, single episode, unspecified (principal)
CPT/HCPCS: 90870; 94760

== ENCOUNTER 2018-10-14 05:39 | Day surgery (SDC) | payer OTHER ==
[2018-10-14 06:57] VITALS: TEMP 98; BMI 19.2
[2018-10-14] MEDS ORDERED: KETAMINE HCL SYRINGES 150 MG/3 ML ONE (07:13)
[2018-10-14 09:01] VITALS: BP 135/89; PULSE 89
--- NOTE | 2018-10-14 11:59 | HP ---
CHIEF COMPLAINT: Major Depressive Disorder PCP: Dr. Pedrito Hollis Primary Psychiatrist: Dr. Sadie Hall, [facility] HISTORY OF PRESENT ILLNESS: 37 year-old male with a PMH significant for depression, anxiety, schizophrenia, and tachycardia. Patient has been undergoing ECT since 2015. Presents today for ECT. Recent events: * none reported PAST MEDICAL HISTORY: Depression Anxiety Schizophrenia Tachycardia PAST SURGICAL HISTORY: Knee surgery 2007 Social History: Smoking: quit 05/24/18 Alcohol: sober 03/04/16 Drugs: no Allergies No Known Drug Allergies Allergy (Verified 09/24/18 17:17) HOME MEDICATIONS: Home Medications Medication Instructions Recorded Clozapine [Clozapine Odt] 100 mg PO ASDIR 01/07/14 Clozapine [Clozapine Odt] 600 mg PO HS 01/07/14 Bupropion HCl [Wellbutrin Xl] 300 mg PO DAILY 07/02/16 Esomeprazole Magnesium 40 mg PO HS 07/02/16 levETIRAcetam [Keppra Xr -] 1,000 mg PO BID 07/02/16 traZODone HCL [Desyrel -] 300 mg PO HS 07/02/16 Potassium Chloride [Klor-Con] 20 meq PO DAILY 07/03/16 Risperidone [Risperdal] 2 mg PO BID 07/11/16 Clozapine [Clozapine Odt] 100 mg PO DAILY 02/19/17 Metoprolol Succinate 25 mg PO HS 11/19/17 Benztropine Mesylate [Cogentin -] 1 mg PO BID 04/25/18 Nicotine Patch [Nicoderm Patch -] 1 patch TD DAILY 08/29/18 REVIEW OF SYSTEMS CONSTITUTIONAL: Absent: fever, chills, diaphoresis, generalized weakness, malaise, loss of appetite, weight change HEENT: Absent: rhinorrhea, nasal congestion, throat pain, throat swelling, difficulty swallowing, mouth swelling, ear pain, eye pain, visual changes CARDIOVASCULAR: Absent: chest pain, syncope, palpitations, irregular heart rate, lightheadedness , peripheral edema RESPIRATORY: Absent: cough, shortness of breath, dyspnea with exertion, orthopnea, wheezing, stridor, hemoptysis GASTROINTESTINAL: Absent: abdominal pain, abdominal distension, nausea, vomiting, diarrhea, constipation, melena, hematochezia GENITOURINARY: Absent: dysuria, frequency, urgency, hesitancy, hematuria, flank pain, genital pain MUSCULOSKELETAL: Absent: myalgia, arthralgia, joint swelling, back pain, neck pain SKIN: Absent: rash, itching, pallor HEMATOLOGIC/IMMUNOLOGIC: Absent: easy bleeding, easy bruising, lymphadenopathy, frequent infections ENDOCRINE: Absent: unexplained weight gain, unexplained weight loss, heat intolerance, cold intolerance NEUROLOGIC: Absent: headache, focal weakness or paresthesias, dizziness, unsteady gait, seizure, mental status changes, bladder or bowel incontinence PHYSICAL EXAMINATION Vital Signs - 24 hr 10/14/18 10/14/18 10/14/18 06:51 07:42 07:47 Temperature 98.0 F Pulse Rate 90 92 H 99 H Respiratory 18 16 13 Rate Blood Pressure 119/84 143/90 133/89 O2 Sat by Pulse 98 100 Oximetry (%) 10/14/18 10/14/18 10/14/18 07:52 07:57 08:15 Temperature 98.0 F Pulse Rate 98 H 97 H 95 H Respiratory 11 13 18 Rate Blood Pressure 131/94 128/96 130/89 O2 Sat by Pulse 100 100 99 Oximetry (%) 10/14/18 10/14/18 08:45 09:00 Temperature 98.0 F 98.0 F Pulse Rate 89 89 Respiratory 18 18 Rate Blood Pressure 135/89 135/89 O2 Sat by Pulse 100 Oximetry (%) GENERAL: Awake, alert, and fully oriented, in no acute distress. HEAD: Normal with no signs of trauma. EYES: Pupils equal, round and reactive to light, sclera anicteric, conjunctiva clear. LUNGS: Breath sounds equal, clear to auscultation bilaterally. No wheezes, and no crackles. No accessory muscle use. HEART: Regular rate and rhythm, normal S1 and S2 ABDOMEN: Soft, nontender, not distended MUSCULOSKELETAL: Normal range of motion at all joints. No bony deformities or tenderness. No CVA tenderness. UPPER EXTREMITIES: 2+ pulses, warm, well-perfused. No cyanosis. No clubbing. No peripheral edema. LOWER EXTREMITIES: 2+ pulses, warm, well-perfused. No calf tenderness. No peripheral edema. NEUROLOGICAL: Cranial nerves II-XII intact. Normal speech. ASSESSMENT/PLAN: 37 year-old male with a PMH significant for depression, anxiety, schizophrenia, and tachycardia. Presents today for ECT. Cardiac --no cardiac history --Revised Cardiac Risk Index for Pre-Operative Risk: 0 points, 0.4% risk of major cardiac event Pulmonary --no pulmonary history Neurological --no neurological or neurosurgical history; no history of trauma Anesthesia --no reported problems with anesthesia ECT is a low risk procedure. The relative benefits of the planned procedure outweigh the relative risks for this patient at this time. Visit type - Emergency Visit Emergency Visit: No - New Patient This patient is new to me today: Yes Date on this admission: 10/14/18 - Critical Care Critical Care patient: No
== END 2018-10-14 09:00 | disposition home or self-care (01) ==
LOC: FECT 05:39
PROVIDERS: ATTEND Psychiatry & Neurology Psychiatry
PROC: GZB4ZZZ Other Electroconvulsive Therapy (ICD-10-PCS; principal; 2018-10-14 07:00)
DX: F32.9 Major depressive disorder, single episode, unspecified (principal)
CPT/HCPCS: 90870; 94760

== ENCOUNTER 2018-10-21 05:46 | Day surgery (SDC) | payer OTHER ==
[2018-10-21 06:28] VITALS: TEMP 98.1; BMI 19.2
[2018-10-21] MEDS ORDERED: KETAMINE HCL SYRINGES 150 MG/3 ML ONE (06:56)
[2018-10-21] MEDS ORDERED: KETOROLAC TROMETHAMINE 30 MG/1 ML VIAL ONE (06:56)
[2018-10-21] MEDS ORDERED: ONDANSETRON 4 MG/2 ML VIAL ONE (06:56)
[2018-10-21 08:32] VITALS: BP 133/81; PULSE 83
[2018-10-21] MEDS ORDERED: ONDANSETRON 4 MG/2 ML VIAL IVPUSH PRN (08:52)
[2018-10-21] MEDS ORDERED: LACTATED RINGERS SOLUTION 1,000 ML IV SCH (09:00)
== END 2018-10-21 08:45 | disposition home or self-care (01) ==
LOC: FECT 05:46
PROVIDERS: ATTEND Psychiatry & Neurology Psychiatry
PROC: GZB4ZZZ Other Electroconvulsive Therapy (ICD-10-PCS; principal; 2018-10-21 08:00)
DX: F33.2 Major depressive disorder, recurrent severe without psychotic features (principal)
CPT/HCPCS: 90870; 94760

== ENCOUNTER 2018-10-28 05:41 | Day surgery (SDC) | payer OTHER ==
[2018-10-24 08:44] VITALS: BMI 19.2
[2018-10-28] MEDS ORDERED: KETOROLAC TROMETHAMINE 30 MG/1 ML VIAL ONE (07:16)
[2018-10-28] MEDS ORDERED: ONDANSETRON 4 MG/2 ML VIAL ONE (07:17)
[2018-10-28] MEDS ORDERED: KETAMINE HCL SYRINGES 150 MG/3 ML ONE (07:17)
[2018-10-28 08:35] VITALS: TEMP 98.3
[2018-10-28 08:58] VITALS: BP 131/90; PULSE 89
[2018-10-28] MEDS ORDERED: ONDANSETRON 4 MG/2 ML VIAL IVPUSH PRN (09:16)
[2018-10-28] MEDS ORDERED: LACTATED RINGERS SOLUTION 1,000 ML IV SCH (09:30)
== END 2018-10-28 09:00 | disposition home or self-care (01) ==
LOC: FECT 05:41
PROVIDERS: ATTEND Psychiatry & Neurology Psychiatry
PROC: GZB4ZZZ Other Electroconvulsive Therapy (ICD-10-PCS; principal; 2018-10-28 07:00)
DX: F32.9 Major depressive disorder, single episode, unspecified (principal)
CPT/HCPCS: 90870; 94760

== ENCOUNTER 2018-11-04 05:43 | Day surgery (SDC) | payer OTHER ==
[2018-11-04 06:27] VITALS: BMI 19.0
[2018-11-04] MEDS ORDERED: KETAMINE HCL SYRINGES 150 MG/3 ML ONE (06:51)
[2018-11-04] MEDS ORDERED: ONDANSETRON 4 MG/2 ML VIAL IVPUSH PRN (08:40)
[2018-11-04] MEDS ORDERED: LACTATED RINGERS SOLUTION 1,000 ML IV SCH (08:45)
[2018-11-04 08:51] VITALS: BP 124/85; PULSE 80; TEMP 98
== END 2018-11-04 08:50 | disposition home or self-care (01) ==
LOC: FECT 05:43
PROVIDERS: ATTEND Psychiatry & Neurology Psychiatry
PROC: GZB4ZZZ Other Electroconvulsive Therapy (ICD-10-PCS; principal; 2018-11-04 07:15)
DX: F33.2 Major depressive disorder, recurrent severe without psychotic features (principal)
CPT/HCPCS: 90870; 94760

== ENCOUNTER 2018-11-11 05:43 | Day surgery (SDC) | payer OTHER ==
[2018-11-04 12:13] VITALS: BMI 19.0
[2018-11-11 06:30] VITALS: TEMP 97.6
[2018-11-11] MEDS ORDERED: KETAMINE HCL SYRINGES 150 MG/3 ML ONE (06:56)
[2018-11-11 08:28] VITALS: BP 128/86; PULSE 88
[2018-11-11] MEDS ORDERED: LACTATED RINGERS SOLUTION 1,000 ML IV SCH (12:00)
--- NOTE | 2018-11-11 17:07 | HP ---
CHIEF COMPLAINT: Major Depressive Disorder PCP: Dr. Pedrito Hollis Primary Psychiatrist: Dr. Sadie Hall, [facility] HISTORY OF PRESENT ILLNESS: 37 year-old male with a PMH significant for depression, anxiety, schizophrenia, and tachycardia. Patient has been undergoing ECT since 2015. Presents today for ECT. Recent events: * started Miralax for constipation PAST MEDICAL HISTORY: Depression Anxiety Schizophrenia Tachycardia PAST SURGICAL HISTORY: Knee surgery 2007 Social History: lives in supportive housing [facility] [employer] in [place] Smoking: quit 05/24/18 Alcohol: sober 03/04/16 Drugs: no Allergies No Known Drug Allergies Allergy (Verified 10/24/18 08:32) HOME MEDICATIONS: Home Medications Medication Instructions Recorded Clozapine [Clozapine Odt] 100 mg PO ASDIR 01/07/14 Clozapine [Clozapine Odt] 600 mg PO HS 01/07/14 Bupropion HCl [Wellbutrin Xl] 300 mg PO DAILY 07/02/16 Esomeprazole Magnesium 40 mg PO HS 07/02/16 levETIRAcetam [Keppra Xr -] 1,000 mg PO BID 07/02/16 traZODone HCL [Desyrel -] 300 mg PO HS 07/02/16 Potassium Chloride [Klor-Con] 20 meq PO DAILY 07/03/16 Risperidone [Risperdal] 2 mg PO BID 07/11/16 Clozapine [Clozapine Odt] 100 mg PO DAILY 02/19/17 Metoprolol Succinate 25 mg PO HS 11/19/17 Benztropine Mesylate [Cogentin -] 1 mg PO BID 04/25/18 REVIEW OF SYSTEMS CONSTITUTIONAL: Absent: fever, chills, diaphoresis, generalized weakness, malaise, loss of appetite, weight change HEENT: Absent: rhinorrhea, nasal congestion, throat pain, throat swelling, difficulty swallowing, mouth swelling, ear pain, eye pain, visual changes CARDIOVASCULAR: Absent: chest pain, syncope, palpitations, irregular heart rate, lightheadedness , peripheral edema RESPIRATORY: Absent: cough, shortness of breath, dyspnea with exertion, orthopnea, wheezing, stridor, hemoptysis GASTROINTESTINAL: Absent: abdominal pain, abdominal distension, nausea, vomiting, diarrhea, constipation, melena, hematochezia GENITOURINARY: Absent: dysuria, frequency, urgency, hesitancy, hematuria, flank pain, genital pain MUSCULOSKELETAL: Absent: myalgia, arthralgia, joint swelling, back pain, neck pain SKIN: Absent: rash, itching, pallor HEMATOLOGIC/IMMUNOLOGIC: Absent: easy bleeding, easy bruising, lymphadenopathy, frequent infections ENDOCRINE: Absent: unexplained weight gain, unexplained weight loss, heat intolerance, cold intolerance NEUROLOGIC: Absent: headache, focal weakness or paresthesias, dizziness, unsteady gait, seizure, mental status changes, bladder or bowel incontinence PHYSICAL EXAMINATION Vital Signs - 24 hr 11/11/18 11/11/18 11/11/18 06:24 07:26 07:31 Temperature 97.6 F Pulse Rate 84 80 91 H Respiratory 18 12 14 Rate Blood Pressure 126/86 127/87 129/91 O2 Sat by Pulse 100 100 100 Oximetry (%) 11/11/18 11/11/18 11/11/18 07:36 07:39 07:47 Temperature Pulse Rate 93 H 90 898 H Respiratory 14 14 14 Rate Blood Pressure 137/99 133/96 129/82 O2 Sat by Pulse 100 100 Oximetry (%) 11/11/18 11/11/18 11/11/18 07:50 08:20 08:45 Temperature 97.6 F 97.6 F Pulse Rate 86 88 88 Respiratory 18 18 18 Rate Blood Pressure 132/92 128/86 128/86 O2 Sat by Pulse 99 99 Oximetry (%) GENERAL: Awake, alert, and fully oriented, in no acute distress. HEAD: Normal with no signs of trauma. EYES: Pupils equal, round and reactive to light, sclera anicteric, conjunctiva clear. LUNGS: Breath sounds equal, clear to auscultation bilaterally. No wheezes, and no crackles. No accessory muscle use. HEART: Regular rate and rhythm, normal S1 and S2 ABDOMEN: Soft, nontender, not distended MUSCULOSKELETAL: Normal range of motion at all joints. No bony deformities or tenderness. No CVA tenderness. UPPER EXTREMITIES: 2+ pulses, warm, well-perfused. No cyanosis. No clubbing. No peripheral edema. LOWER EXTREMITIES: 2+ pulses, warm, well-perfused. No calf tenderness. No peripheral edema. NEUROLOGICAL: Cranial nerves II-XII intact. Normal speech. ASSESSMENT/PLAN: 37 year-old male with a PMH significant for depression, anxiety, schizophrenia, and tachycardia. Presents today for ECT. Cardiac --no cardiac history --Revised Cardiac Risk Index for Pre-Operative Risk: 0 points, 0.4% risk of major cardiac event Pulmonary --no pulmonary history Neurological --no neurological or neurosurgical history; no history of trauma Anesthesia --no reported problems with anesthesia ECT is a low risk procedure. The relative benefits of the planned procedure outweigh the relative risks for this patient at this time. Visit type - Emergency Visit Emergency Visit: No - New Patient This patient is new to me today: Yes Date on this admission: 11/12/18 - Critical Care Critical Care patient: No
== END 2018-11-11 08:46 | disposition home or self-care (01) ==
LOC: FECT 05:43
PROVIDERS: ATTEND Psychiatry & Neurology Psychiatry
PROC: GZB4ZZZ Other Electroconvulsive Therapy (ICD-10-PCS; principal; 2018-11-11 07:30)
DX: F33.2 Major depressive disorder, recurrent severe without psychotic features (principal)
CPT/HCPCS: 90870; 94760

== ENCOUNTER 2018-11-25 05:45 | Day surgery (SDC) | payer OTHER | END 2018-11-25 09:00 | disposition home or self-care (01) | LOC: FECT 05:45 | PROC: GZB4ZZZ Other Electroconvulsive Therapy (ICD-10-PCS; principal; 2018-11-25 07:06) | DX: F32.9 Major depressive disorder, single episode, unspecified (principal) ==

== ENCOUNTER 2018-12-02 05:37 | Day surgery (SDC) | payer OTHER ==
[2018-12-02 06:24] VITALS: TEMP 98.1; BMI 18.5
[2018-12-02] MEDS ORDERED: KETAMINE HCL 500 MG/10 ML VIAL ONE (07:08)
[2018-12-02 08:50] VITALS: BP 132/81; PULSE 84
== END 2018-12-02 08:53 | disposition home or self-care (01) ==
LOC: FECT 05:37
PROVIDERS: ATTEND Psychiatry & Neurology Psychiatry
PROC: GZB4ZZZ Other Electroconvulsive Therapy (ICD-10-PCS; principal; 2018-12-02 07:15)
DX: F32.9 Major depressive disorder, single episode, unspecified (principal)
CPT/HCPCS: 90870; 94760

== ENCOUNTER 2018-12-16 05:59 | Day surgery (SDC) | payer OTHER | END 2018-12-16 08:40 | disposition home or self-care (01) | LOC: FECT 05:59 ==

== ENCOUNTER 2018-12-30 05:39 | Day surgery (SDC) | payer OTHER | END 2018-12-30 08:40 | disposition home or self-care (01) | LOC: FECT 05:39 ==

== ENCOUNTER 2019-01-06 05:47 | Day surgery (SDC) | payer OTHER | END 2019-01-06 08:55 | disposition home or self-care (01) | LOC: FECT 05:47 ==

== ENCOUNTER 2019-01-13 05:37 | Day surgery (SDC) | payer OTHER ==
[2019-01-13 06:39] VITALS: BMI 18.6
[2019-01-13] MEDS ORDERED: KETAMINE HCL 500 MG/10 ML VIAL ONE (07:25)
[2019-01-13 08:36] VITALS: TEMP 98.1
[2019-01-13 09:01] VITALS: BP 111/69; PULSE 89
== END 2019-01-13 09:00 | disposition home or self-care (01) ==
LOC: FECT 05:37
PROVIDERS: ATTEND Psychiatry & Neurology Psychiatry
PROC: GZB4ZZZ Other Electroconvulsive Therapy (ICD-10-PCS; principal; 2019-01-13 07:00)
DX: F32.9 Major depressive disorder, single episode, unspecified (principal)
CPT/HCPCS: 90870; 94760

== ENCOUNTER 2019-01-20 05:40 | Day surgery (SDC) | payer OTHER ==
[2019-01-13 15:26] VITALS: BMI 18.6
[2019-01-20] MEDS ORDERED: LACTATED RINGERS SOLUTION 1,000 ML IV SCH (07:00)
[2019-01-20 07:08] VITALS: TEMP 98.2
[2019-01-20] MEDS ORDERED: KETAMINE HCL 500 MG/10 ML VIAL ONE (07:27)
[2019-01-20 09:05] VITALS: BP 123/83; PULSE 87
== END 2019-01-20 09:10 | disposition home or self-care (01) ==
LOC: FECT 05:40
PROVIDERS: ATTEND Psychiatry & Neurology Psychiatry
PROC: GZB4ZZZ Other Electroconvulsive Therapy (ICD-10-PCS; principal; 2019-01-20 08:15)
DX: F32.9 Major depressive disorder, single episode, unspecified (principal)
CPT/HCPCS: 90870; 94760

== ENCOUNTER 2019-02-03 05:45 | Day surgery (SDC) | payer OTHER ==
[2019-01-20 17:42] VITALS: BMI 18.6
[2019-02-03 06:49] VITALS: TEMP 98.4
[2019-02-03] MEDS ORDERED: KETAMINE HCL 500 MG/10 ML VIAL ONE (07:05)
--- NOTE | 2019-02-03 08:03 | HP ---
CHIEF COMPLAINT: Major Depressive Disorder PCP: Dr. Pedrito Hollis Primary Psychiatrist: Dr. Sadie Hall, [facility] HISTORY OF PRESENT ILLNESS: 37 year-old male with a PMH significant for depression, anxiety, schizophrenia, and tachycardia. Patient has been undergoing ECT since 2016. Presents today for ECT. Recent events: * none reported Allergies No Known Drug Allergies Allergy (Verified 01/13/19 15:23) HOME MEDICATIONS: Home Medications Medication Instructions Recorded Clozapine [Clozapine Odt] 100 mg PO ASDIR 01/07/14 Clozapine [Clozapine Odt] 600 mg PO HS 01/07/14 Bupropion HCl [Wellbutrin Xl] 300 mg PO DAILY 07/02/16 Esomeprazole Magnesium 40 mg PO HS 07/02/16 levETIRAcetam [Keppra Xr -] 750 mg PO BID 07/02/16 traZODone HCL [Desyrel -] 300 mg PO HS 07/02/16 Potassium Chloride [Klor-Con] 20 meq PO DAILY 07/03/16 Risperidone [Risperdal] 2 mg PO BID 07/11/16 Clozapine [Clozapine Odt] 100 mg PO DAILY 02/19/17 Metoprolol Succinate 50 mg PO HS 11/19/17 Benztropine Mesylate [Cogentin -] 1 mg PO BID 04/25/18 Polyethylene Glycol 3350 [Miralax 17 gm PO HS PRN 11/25/18 119 gm Btl -] REVIEW OF SYSTEMS CONSTITUTIONAL: Absent: fever, chills, diaphoresis, generalized weakness, malaise, loss of appetite, weight change HEENT: Absent: rhinorrhea, nasal congestion, throat pain, throat swelling, difficulty swallowing, mouth swelling, ear pain, eye pain, visual changes CARDIOVASCULAR: Absent: chest pain, syncope, palpitations, irregular heart rate, lightheadedness , peripheral edema RESPIRATORY: Absent: cough, shortness of breath, dyspnea with exertion, orthopnea, wheezing, stridor, hemoptysis GASTROINTESTINAL: Absent: abdominal pain, abdominal distension, nausea, vomiting, diarrhea, constipation, melena, hematochezia GENITOURINARY: Absent: dysuria, frequency, urgency, hesitancy, hematuria, flank pain, genital pain MUSCULOSKELETAL: Absent: myalgia, arthralgia, joint swelling, back pain, neck pain SKIN: Absent: rash, itching, pallor HEMATOLOGIC/IMMUNOLOGIC: Absent: easy bleeding, easy bruising, lymphadenopathy, frequent infections ENDOCRINE: Absent: unexplained weight gain, unexplained weight loss, heat intolerance, cold intolerance NEUROLOGIC: Absent: headache, focal weakness or paresthesias, dizziness, unsteady gait, seizure, mental status changes, bladder or bowel incontinence PHYSICAL EXAMINATION Vital Signs - 24 hr 02/03/19 06:46 Temperature 98.4 F Pulse Rate 87 Respiratory 18 Rate Blood Pressure 124/86 O2 Sat by Pulse 100 Oximetry (%) GENERAL: Awake, alert, and fully oriented, in no acute distress. HEAD: Normal with no signs of trauma. EYES: Pupils equal, round and reactive to light, sclera anicteric, conjunctiva clear. LUNGS: Breath sounds equal, clear to auscultation bilaterally. No wheezes, and no crackles. No accessory muscle use. HEART: Regular rate and rhythm, normal S1 and S2 ABDOMEN: Soft, nontender, not distended MUSCULOSKELETAL: Normal range of motion at all joints. No bony deformities or tenderness. No CVA tenderness. UPPER EXTREMITIES: 2+ pulses, warm, well-perfused. No cyanosis. No clubbing. No peripheral edema. LOWER EXTREMITIES: 2+ pulses, warm, well-perfused. No calf tenderness. No peripheral edema. NEUROLOGICAL: Cranial nerves II-XII intact. Normal speech. ASSESSMENT/PLAN: 38 year-old male with a PMH significant for depression, anxiety, schizophrenia, and tachycardia. Presents today for ECT. Cardiac --tachycardia - controlled with Toprol XL --Revised Cardiac Risk Index for Pre-Operative Risk: 0 points, 0.4% risk of major cardiac event Pulmonary --no pulmonary history Neurological --no neurological or neurosurgical history; no history of trauma Anesthesia --no reported problems with anesthesia ECT is a low risk procedure. The relative benefits of the planned procedure outweigh the relative risks for this patient at this time. Visit type - Emergency Visit Emergency Visit: No - New Patient This patient is new to me today: Yes Date on this admission: 02/03/19 - Critical Care Critical Care patient: No
[2019-02-03 08:06] VITALS: PULSE 89
[2019-02-03 08:26] VITALS: BP 130/86
== END 2019-02-03 08:30 | disposition home or self-care (01) ==
LOC: FECT 05:45
PROVIDERS: ATTEND Psychiatry & Neurology Psychiatry
PROC: GZB4ZZZ Other Electroconvulsive Therapy (ICD-10-PCS; principal; 2019-02-03 07:15)
DX: F32.9 Major depressive disorder, single episode, unspecified (principal)
CPT/HCPCS: 90870; 94760

== ENCOUNTER 2019-02-10 05:42 | Day surgery (SDC) | payer OTHER ==
[2019-02-10 06:27] VITALS: BMI 18.6
[2019-02-10] MEDS ORDERED: KETAMINE HCL 500 MG/10 ML VIAL ONE (07:03)
[2019-02-10] MEDS ORDERED: oxyCODONE HCL 5 MG TABLET PO PRN (08:47)
[2019-02-10 08:54] VITALS: TEMP 97.5
[2019-02-10 10:40] VITALS: BP 121/87; PULSE 84
== END 2019-02-10 09:20 | disposition home or self-care (01) ==
LOC: FECT 05:42
PROVIDERS: ATTEND Psychiatry & Neurology Psychiatry
PROC: GZB4ZZZ Other Electroconvulsive Therapy (ICD-10-PCS; principal; 2019-02-10 07:30)
DX: F33.2 Major depressive disorder, recurrent severe without psychotic features (principal)
CPT/HCPCS: 90870; 94760

== ENCOUNTER 2019-02-17 05:38 | Day surgery (SDC) | payer OTHER ==
[2019-02-10 13:59] VITALS: BMI 18.6
[2019-02-17 06:52] VITALS: TEMP 98.4
[2019-02-17] MEDS ORDERED: KETAMINE HCL 500 MG/10 ML VIAL ONE (07:35)
[2019-02-17 09:14] VITALS: BP 132/89; PULSE 89
== END 2019-02-17 09:10 | disposition home or self-care (01) ==
LOC: FECT 05:38
PROVIDERS: ATTEND Psychiatry & Neurology Psychiatry
PROC: GZB4ZZZ Other Electroconvulsive Therapy (ICD-10-PCS; principal; 2019-02-17 07:45)
DX: F32.9 Major depressive disorder, single episode, unspecified (principal)
CPT/HCPCS: 90870; 94760

== ENCOUNTER 2019-02-24 05:36 | Day surgery (SDC) | payer OTHER ==
[2019-02-24 06:43] VITALS: BMI 18.6
[2019-02-24] MEDS ORDERED: KETAMINE HCL 500 MG/10 ML VIAL ONE (06:56)
[2019-02-24 08:26] VITALS: TEMP 98.6
[2019-02-24 08:52] VITALS: BP 128/85; PULSE 84
[2019-02-24] MEDS ORDERED: ONDANSETRON 4 MG/2 ML VIAL IVPUSH PRN (08:58)
[2019-02-24] MEDS ORDERED: LACTATED RINGERS SOLUTION 1,000 ML IV SCH (09:00)
== END 2019-02-24 08:53 | disposition home or self-care (01) ==
LOC: FECT 05:36
PROVIDERS: ATTEND Psychiatry & Neurology Psychiatry
PROC: GZB4ZZZ Other Electroconvulsive Therapy (ICD-10-PCS; principal; 2019-02-24 07:30)
DX: F32.9 Major depressive disorder, single episode, unspecified (principal)
CPT/HCPCS: 90870; 94760

== ENCOUNTER 2019-03-03 05:44 | Day surgery (SDC) | payer OTHER ==
[2019-03-03 06:47] VITALS: TEMP 97.6; BMI 18.7
[2019-03-03] MEDS ORDERED: KETAMINE HCL 500 MG/10 ML VIAL ONE (07:02)
[2019-03-03] MEDS ORDERED: oxyCODONE HCL 5 MG TABLET PO PRN (07:38)
--- NOTE | 2019-03-03 08:30 | HP ---
CHIEF COMPLAINT: Major depressive disorder PCP: Dr. Pedrito Hollis [facility] HISTORY OF PRESENT ILLNESS: 37 year-old male with a PMH significant for depression, anxiety, schizophrenia, and tachycardia. Patient has been undergoing ECT since 2016. Patient presents today for ECT. Recent Events: * none reported PAST MEDICAL HISTORY: Depression Anxiety Schizophrenia Tachycardia PAST SURGICAL HISTORY: Left knee tendon repair x 15 years Social History: lives at [facility] in [place]; unemployed Smoking: quite 9 months ago Alcohol: sober x 3 years Drugs: no Family History: mother 60 COPD/emphysema; father 66 a&w; 2 brothers a&w Allergies No Known Drug Allergies Allergy (Verified 01/13/19 15:23) HOME MEDICATIONS: Home Medications Medication Instructions Recorded Clozapine [Clozapine Odt] 100 mg PO ASDIR 01/07/14 Clozapine [Clozapine Odt] 600 mg PO HS 01/07/14 Bupropion HCl [Wellbutrin Xl] 300 mg PO DAILY 07/02/16 Esomeprazole Magnesium 40 mg PO HS 07/02/16 levETIRAcetam [Keppra Xr -] 750 mg PO BID 07/02/16 traZODone HCL [Desyrel -] 300 mg PO HS 07/02/16 Potassium Chloride [Klor-Con] 20 meq PO DAILY 07/03/16 Risperidone [Risperdal] 2 mg PO BID 07/11/16 Clozapine [Clozapine Odt] 100 mg PO DAILY 02/19/17 Metoprolol Succinate 50 mg PO HS 11/19/17 Benztropine Mesylate [Cogentin -] 1 mg PO BID 04/25/18 Polyethylene Glycol 3350 [Miralax 17 gm PO HS PRN 11/25/18 119 gm Btl -] REVIEW OF SYSTEMS CONSTITUTIONAL: Absent: fever, chills, diaphoresis, generalized weakness, malaise, loss of appetite, weight change HEENT: Absent: rhinorrhea, nasal congestion, throat pain, throat swelling, difficulty swallowing, mouth swelling, ear pain, eye pain, visual changes CARDIOVASCULAR: Absent: chest pain, syncope, palpitations, irregular heart rate, lightheadedness , peripheral edema RESPIRATORY: Absent: cough, shortness of breath, dyspnea with exertion, orthopnea, wheezing, stridor, hemoptysis GASTROINTESTINAL: Absent: abdominal pain, abdominal distension, nausea, vomiting, diarrhea, constipation, melena, hematochezia GENITOURINARY: Absent: dysuria, frequency, urgency, hesitancy, hematuria, flank pain, genital pain MUSCULOSKELETAL: Absent: myalgia, arthralgia, joint swelling, back pain, neck pain SKIN: Absent: rash, itching, pallor HEMATOLOGIC/IMMUNOLOGIC: Absent: easy bleeding, easy bruising, lymphadenopathy, frequent infections ENDOCRINE: Absent: unexplained weight gain, unexplained weight loss, heat intolerance, cold intolerance NEUROLOGIC: Absent: headache, focal weakness or paresthesias, dizziness, unsteady gait, seizure, mental status changes, bladder or bowel incontinence PHYSICAL EXAMINATION Vital Signs - 24 hr 03/03/19 03/03/19 03/03/19 06:42 07:31 07:36 Temperature 97.6 F Pulse Rate 78 81 85 Respiratory 18 17 18 Rate Blood Pressure 124/70 107/69 122/80 O2 Sat by Pulse 98 100 99 Oximetry (%) 03/03/19 03/03/19 03/03/19 07:41 07:46 08:00 Temperature 97.6 F Pulse Rate 87 86 82 Respiratory 18 15 18 Rate Blood Pressure 126/80 130/86 126/86 O2 Sat by Pulse 100 97 99 Oximetry (%) GENERAL: Awake, alert, and fully oriented, in no acute distress. HEAD: Normal with no signs of trauma. EYES: Pupils equal, round and reactive to light, sclera anicteric, conjunctiva clear. LUNGS: Breath sounds equal, clear to auscultation bilaterally. No wheezes, and no crackles. No accessory muscle use. HEART: Regular rate and rhythm, normal S1 and S2 ABDOMEN: Soft, nontender, not distended MUSCULOSKELETAL: Normal range of motion at all joints. No bony deformities or tenderness. No CVA tenderness. UPPER EXTREMITIES: 2+ pulses, warm, well-perfused. No cyanosis. No clubbing. No peripheral edema. LOWER EXTREMITIES: 2+ pulses, warm, well-perfused. No calf tenderness. No peripheral edema. NEUROLOGICAL: Cranial nerves II-XII intact. Normal speech. ASSESSMENT/PLAN: 37 year-old male with a PMH significant for depression, anxiety, schizophrenia, and tachycardia. Patient presents today for ECT. Cardiac --tachycardia - controlled with Toprol XL --Revised Cardiac Risk Index for Pre-Operative Risk: 0 points, 0.4% risk of major cardiac event Pulmonary --no pulmonary history Neurological --no neurological or neurosurgical history; no history of trauma Anesthesia --no reported problems with anesthesia ECT is a low risk procedure. The relative benefits of the planned procedure outweigh the relative risks for this patient at this time. Visit type - Emergency Visit Emergency Visit: No - New Patient This patient is new to me today: Yes Date on this admission: 03/03/19 - Critical Care Critical Care patient: No
[2019-03-03 09:21] VITALS: BP 124/82; PULSE 84
== END 2019-03-03 09:23 | disposition home or self-care (01) ==
LOC: FECT 05:44
PROVIDERS: ATTEND Psychiatry & Neurology Psychiatry
PROC: GZB4ZZZ Other Electroconvulsive Therapy (ICD-10-PCS; principal; 2019-03-03 07:45)
DX: F32.9 Major depressive disorder, single episode, unspecified (principal)
CPT/HCPCS: 90870; 94760

== ENCOUNTER 2019-03-10 05:56 | Day surgery (SDC) | payer OTHER ==
[2019-03-10 06:22] VITALS: BMI 18.8
[2019-03-10] MEDS ORDERED: LACTATED RINGERS SOLUTION 1,000 ML IV SCH (07:15)
[2019-03-10] MEDS ORDERED: KETAMINE HCL 500 MG/10 ML VIAL ONE (07:28)
[2019-03-10 09:03] VITALS: BP 130/87; PULSE 84; TEMP 98.4
== END 2019-03-10 09:00 | disposition home or self-care (01) ==
LOC: FECT 05:56
PROVIDERS: ATTEND Psychiatry & Neurology Psychiatry
PROC: GZB4ZZZ Other Electroconvulsive Therapy (ICD-10-PCS; principal; 2019-03-10 07:00)
DX: F33.2 Major depressive disorder, recurrent severe without psychotic features (principal)
CPT/HCPCS: 90870; 94760

== ENCOUNTER 2019-03-17 05:57 | Day surgery (SDC) | payer OTHER ==
[2019-03-10 09:58] VITALS: BMI 18.7
[2019-03-17] MEDS ORDERED: KETAMINE HCL 500 MG/10 ML VIAL ONE (07:09)
[2019-03-17 08:30] VITALS: TEMP 97.6
[2019-03-17 09:00] VITALS: BP 136/85; PULSE 82
[2019-03-17] MEDS ORDERED: ONDANSETRON 4 MG/2 ML VIAL IVPUSH PRN (09:55)
[2019-03-17] MEDS ORDERED: LACTATED RINGERS SOLUTION 1,000 ML IV SCH (10:00)
== END 2019-03-17 09:02 | disposition home or self-care (01) ==
LOC: FECT 05:57
PROVIDERS: ATTEND Psychiatry & Neurology Psychiatry
PROC: GZB4ZZZ Other Electroconvulsive Therapy (ICD-10-PCS; principal; 2019-03-17 07:45)
DX: F32.9 Major depressive disorder, single episode, unspecified (principal)
CPT/HCPCS: 90870; 94760

== ENCOUNTER 2019-03-24 05:49 | Day surgery (SDC) | payer OTHER | END 2019-03-24 09:00 | disposition home or self-care (01) | LOC: FECT 05:49 ==

== ENCOUNTER 2019-03-31 07:07 | Day surgery (SDC) | payer OTHER ==
[2019-03-31 07:32] VITALS: BMI 19.8
[2019-03-31] MEDS ORDERED: KETAMINE HCL 500 MG/10 ML VIAL ONE (08:00)
[2019-03-31] MEDS ORDERED: oxyCODONE HCL 5 MG TABLET PO PRN (08:22)
[2019-03-31] MEDS ORDERED: ACETAMINOPHEN 325 MG TABLET (FP) PO PRN (08:22)
[2019-03-31] MEDS ORDERED: ONDANSETRON 4 MG/2 ML VIAL IVPUSH PRN (08:22)
[2019-03-31 09:10] VITALS: TEMP 98.5
[2019-03-31 10:21] VITALS: BP 135/90; PULSE 89
--- NOTE | 2019-04-01 13:48 | HP ---
CHIEF COMPLAINT: Major depressive disorder PCP: Dr. Pedrito Hollis [facility] HISTORY OF PRESENT ILLNESS: 37 year-old male with a PMH significant for depression, anxiety, schizophrenia, and tachycardia. Patient has been undergoing ECT since 2016. Patient presents today for ECT. Recent Events: * none reported PAST MEDICAL HISTORY: Depression Anxiety Schizophrenia Tachycardia PAST SURGICAL HISTORY: Left knee tendon repair x 15 years Social History: lives at [facility] [employer] in [place]; unemployed Smoking: quite 9 months ago Alcohol: sober x 3 years Drugs: no Family History: mother 60 COPD/emphysema; father 66 a&w; 2 brothers a&w Allergies No Known Drug Allergies Allergy (Verified 01/13/19 15:23) HOME MEDICATIONS: Home Medications Medication Instructions Recorded Clozapine [Clozapine Odt] 100 mg PO ASDIR 01/07/14 Clozapine [Clozapine Odt] 600 mg PO HS 01/07/14 Bupropion HCl [Wellbutrin Xl] 300 mg PO DAILY 07/02/16 Esomeprazole Magnesium 40 mg PO HS 07/02/16 levETIRAcetam [Keppra Xr -] 750 mg PO BID 07/02/16 traZODone HCL [Desyrel -] 300 mg PO HS 07/02/16 Potassium Chloride [Klor-Con] 20 meq PO DAILY 07/03/16 Risperidone [Risperdal] 2 mg PO BID 07/11/16 Clozapine [Clozapine Odt] 100 mg PO DAILY 02/19/17 Metoprolol Succinate 50 mg PO HS 11/19/17 Benztropine Mesylate [Cogentin -] 1 mg PO BID 04/25/18 Polyethylene Glycol 3350 [Miralax 17 gm PO HS PRN 11/25/18 119 gm Btl -] REVIEW OF SYSTEMS CONSTITUTIONAL: Absent: fever, chills, diaphoresis, generalized weakness, malaise, loss of appetite, weight change HEENT: Absent: rhinorrhea, nasal congestion, throat pain, throat swelling, difficulty swallowing, mouth swelling, ear pain, eye pain, visual changes CARDIOVASCULAR: Absent: chest pain, syncope, palpitations, irregular heart rate, lightheadedness , peripheral edema RESPIRATORY: Absent: cough, shortness of breath, dyspnea with exertion, orthopnea, wheezing, stridor, hemoptysis GASTROINTESTINAL: Absent: abdominal pain, abdominal distension, nausea, vomiting, diarrhea, constipation, melena, hematochezia GENITOURINARY: Absent: dysuria, frequency, urgency, hesitancy, hematuria, flank pain, genital pain MUSCULOSKELETAL: Absent: myalgia, arthralgia, joint swelling, back pain, neck pain SKIN: Absent: rash, itching, pallor HEMATOLOGIC/IMMUNOLOGIC: Absent: easy bleeding, easy bruising, lymphadenopathy, frequent infections ENDOCRINE: Absent: unexplained weight gain, unexplained weight loss, heat intolerance, cold intolerance NEUROLOGIC: Absent: headache, focal weakness or paresthesias, dizziness, unsteady gait, seizure, mental status changes, bladder or bowel incontinence PHYSICAL EXAMINATION Vital Signs Temperature 98.5 F 03/31/19 10:00 Pulse Rate 89 03/31/19 10:00 Respiratory Rate 18 03/31/19 10:00 Blood Pressure 135/90 03/31/19 10:00 O2 Sat by Pulse Oximetry (%) 100 03/31/19 09:30 GENERAL: Awake, alert, and fully oriented, in no acute distress. HEAD: Normal with no signs of trauma. EYES: Pupils equal, round and reactive to light, sclera anicteric, conjunctiva clear. LUNGS: Breath sounds equal, clear to auscultation bilaterally. No wheezes, and no crackles. No accessory muscle use. HEART: Regular rate and rhythm, normal S1 and S2 ABDOMEN: Soft, nontender, not distended MUSCULOSKELETAL: Normal range of motion at all joints. No bony deformities or tenderness. No CVA tenderness. UPPER EXTREMITIES: 2+ pulses, warm, well-perfused. No cyanosis. No clubbing. No peripheral edema. LOWER EXTREMITIES: 2+ pulses, warm, well-perfused. No calf tenderness. No peripheral edema. NEUROLOGICAL: Cranial nerves II-XII intact. Normal speech. ASSESSMENT/PLAN: 37 year-old male with a PMH significant for depression, anxiety, schizophrenia, and tachycardia. Patient presents today for ECT. Cardiac --tachycardia well-controlled on current meds --Revised Cardiac Risk Index for Pre-Operative Risk: 0 points, 0.4% risk of major cardiac event Pulmonary --no pulmonary history Neurological --no neurological or neurosurgical history; no history of trauma Anesthesia --no reported problems with anesthesia ECT is a low risk procedure. The relative benefits of the planned procedure outweigh the relative risks for this patient at this time. Visit type - Emergency Visit Emergency Visit: No - New Patient This patient is new to me today: Yes Date on this admission: 04/02/19 - Critical Care Critical Care patient: No
== END 2019-03-31 10:00 | disposition home or self-care (01) ==
LOC: FECT 07:07
PROVIDERS: ATTEND Psychiatry & Neurology Psychiatry
PROC: GZB4ZZZ Other Electroconvulsive Therapy (ICD-10-PCS; principal; 2019-03-31 07:45)
DX: F33.2 Major depressive disorder, recurrent severe without psychotic features (principal)
CPT/HCPCS: 90870; 94760

== ENCOUNTER 2019-04-08 05:45 | Day surgery (SDC) | payer OTHER ==
[2019-04-08 06:21] VITALS: BMI 18.8
[2019-04-08] MEDS ORDERED: KETAMINE HCL 500 MG/10 ML VIAL ONE (06:54)
[2019-04-08 08:05] VITALS: TEMP 97.9
[2019-04-08 09:06] VITALS: BP 128/84; PULSE 82
== END 2019-04-08 09:10 | disposition home or self-care (01) ==
LOC: FECT 05:45
PROVIDERS: ATTEND Psychiatry & Neurology Psychiatry
PROC: GZB4ZZZ Other Electroconvulsive Therapy (ICD-10-PCS; principal; 2019-04-08 07:45)
DX: F32.9 Major depressive disorder, single episode, unspecified (principal)
CPT/HCPCS: 90870; 94760

== ENCOUNTER 2019-04-14 05:44 | Day surgery (SDC) | payer OTHER ==
[2019-04-14 06:16] VITALS: TEMP 97.4; BMI 18.7
[2019-04-14] MEDS ORDERED: KETAMINE HCL 500 MG/10 ML VIAL ONE (06:55)
[2019-04-14] MEDS ORDERED: LACTATED RINGERS SOLUTION 1,000 ML IV SCH (07:15)
[2019-04-14 08:26] VITALS: BP 133/90; PULSE 89
== END 2019-04-14 08:25 | disposition home or self-care (01) ==
LOC: FECT 05:44
PROVIDERS: ATTEND Psychiatry & Neurology Psychiatry
PROC: GZB4ZZZ Other Electroconvulsive Therapy (ICD-10-PCS; principal; 2019-04-14 07:30)
DX: F33.2 Major depressive disorder, recurrent severe without psychotic features (principal)
CPT/HCPCS: 90870; 94760

== ENCOUNTER 2019-04-21 05:36 | Day surgery (SDC) | payer OTHER ==
[2019-04-15 16:24] VITALS: BMI 18.7
[2019-04-21 06:21] VITALS: TEMP 97.7
[2019-04-21] MEDS ORDERED: ACETAMINOPHEN 325 MG TABLET (FP) PO PRN (06:43)
[2019-04-21] MEDS ORDERED: oxyCODONE HCL 5 MG TABLET PO PRN (06:43)
[2019-04-21] MEDS ORDERED: ONDANSETRON 4 MG/2 ML VIAL ONE (06:53)
[2019-04-21] MEDS ORDERED: KETOROLAC TROMETHAMINE 30 MG/1 ML VIAL ONE (06:53)
[2019-04-21] MEDS ORDERED: KETAMINE HCL 500 MG/10 ML VIAL ONE (06:53)
[2019-04-21 08:14] VITALS: BP 125/80; PULSE 91
== END 2019-04-21 08:20 | disposition home or self-care (01) ==
LOC: FECT 05:36
PROVIDERS: ATTEND Psychiatry & Neurology Psychiatry
PROC: GZB4ZZZ Other Electroconvulsive Therapy (ICD-10-PCS; principal; 2019-04-21 07:00)
DX: F33.2 Major depressive disorder, recurrent severe without psychotic features (principal)
CPT/HCPCS: 90870; 94760

== ENCOUNTER 2019-04-28 05:36 | Day surgery (SDC) | payer OTHER ==
[2019-04-28 06:20] VITALS: BMI 18.7
[2019-04-28] MEDS ORDERED: KETAMINE HCL 500 MG/10 ML VIAL ONE (06:57)
[2019-04-28 08:07] VITALS: TEMP 98.3
[2019-04-28 08:24] VITALS: BP 133/91; PULSE 89
--- NOTE | 2019-04-28 10:49 | HP ---
CHIEF COMPLAINT: Major depressive disorder PCP: [facility] Primary Psychiatrist: [facility] HISTORY OF PRESENT ILLNESS: 37 year-old male with a PMH significant for depression, anxiety, schizophrenia, and tachycardia. Patient has been undergoing ECT since 2016. Patient presents today for ECT. Recent Events: * none reported PAST MEDICAL HISTORY: Depression Anxiety Schizophrenia Tachycardia PAST SURGICAL HISTORY: Left knee tendon repair x 15 years Social History: lives at [employer] [facility] [employer] in [place]; unemployed Smoking: quite 9 months ago Alcohol: sober x 3 years Drugs: no Family History: mother 60 COPD/emphysema; father 66 a&w; 2 brothers a&w Allergies No Known Drug Allergies Allergy (Verified 01/13/19 15:23) HOME MEDICATIONS: Home Medications Medication Instructions Recorded Clozapine [Clozapine Odt] 100 mg PO ASDIR 01/07/14 Clozapine [Clozapine Odt] 600 mg PO HS 01/07/14 Bupropion HCl [Wellbutrin Xl] 300 mg PO DAILY 07/02/16 Esomeprazole Magnesium 40 mg PO HS 07/02/16 levETIRAcetam [Keppra Xr -] 750 mg PO BID 07/02/16 traZODone HCL [Desyrel -] 300 mg PO HS 07/02/16 Potassium Chloride [Klor-Con] 20 meq PO DAILY 07/03/16 Risperidone [Risperdal] 2 mg PO BID 07/11/16 Clozapine [Clozapine Odt] 100 mg PO DAILY 02/19/17 Metoprolol Succinate 50 mg PO HS 11/19/17 Benztropine Mesylate [Cogentin -] 1 mg PO BID 04/25/18 Polyethylene Glycol 3350 [Miralax 17 gm PO HS PRN 11/25/18 119 gm Btl -] REVIEW OF SYSTEMS CONSTITUTIONAL: Absent: fever, chills, diaphoresis, generalized weakness, malaise, loss of appetite, weight change HEENT: Absent: rhinorrhea, nasal congestion, throat pain, throat swelling, difficulty swallowing, mouth swelling, ear pain, eye pain, visual changes CARDIOVASCULAR: Absent: chest pain, syncope, palpitations, irregular heart rate, lightheadedness , peripheral edema RESPIRATORY: Absent: cough, shortness of breath, dyspnea with exertion, orthopnea, wheezing, stridor, hemoptysis GASTROINTESTINAL: Absent: abdominal pain, abdominal distension, nausea, vomiting, diarrhea, constipation, melena, hematochezia GENITOURINARY: Absent: dysuria, frequency, urgency, hesitancy, hematuria, flank pain, genital pain MUSCULOSKELETAL: Absent: myalgia, arthralgia, joint swelling, back pain, neck pain SKIN: Absent: rash, itching, pallor HEMATOLOGIC/IMMUNOLOGIC: Absent: easy bleeding, easy bruising, lymphadenopathy, frequent infections ENDOCRINE: Absent: unexplained weight gain, unexplained weight loss, heat intolerance, cold intolerance NEUROLOGIC: Absent: headache, focal weakness or paresthesias, dizziness, unsteady gait, seizure, mental status changes, bladder or bowel incontinence PHYSICAL EXAMINATION Vital Signs - 24 hr 04/28/19 04/28/19 04/28/19 06:15 07:25 07:30 Temperature 97.6 F Pulse Rate 86 95 H 96 H Respiratory 18 15 11 Rate Blood Pressure 111/74 140/94 136/90 O2 Sat by Pulse 99 99 99 Oximetry (%) 04/28/19 04/28/19 04/28/19 07:35 07:40 07:45 Temperature Pulse Rate 95 H 98 H 92 H Respiratory 11 13 13 Rate Blood Pressure 130/99 134/95 128/92 O2 Sat by Pulse 99 99 100 Oximetry (%) 04/28/19 04/28/19 04/28/19 07:50 08:20 08:50 Temperature 98.3 F 98.3 F 98.3 F Pulse Rate 92 H 89 89 Respiratory 18 18 18 Rate Blood Pressure 130/92 133/91 133/91 O2 Sat by Pulse 100 100 Oximetry (%) GENERAL: Awake, alert, and fully oriented, in no acute distress. HEAD: Normal with no signs of trauma. EYES: Pupils equal, round and reactive to light, sclera anicteric, conjunctiva clear. LUNGS: Breath sounds equal, clear to auscultation bilaterally. No wheezes, and no crackles. No accessory muscle use. HEART: Regular rate and rhythm, normal S1 and S2 ABDOMEN: Soft, nontender, not distended MUSCULOSKELETAL: Normal range of motion at all joints. No bony deformities or tenderness. No CVA tenderness. UPPER EXTREMITIES: 2+ pulses, warm, well-perfused. No cyanosis. No clubbing. No peripheral edema. LOWER EXTREMITIES: 2+ pulses, warm, well-perfused. No calf tenderness. No peripheral edema. NEUROLOGICAL: Cranial nerves II-XII intact. Normal speech. ASSESSMENT/PLAN: 37 year-old male with a PMH significant for depression, anxiety, schizophrenia, and tachycardia. Patient presents today for ECT. Cardiac --tachycardia well-controlled on current meds --Revised Cardiac Risk Index for Pre-Operative Risk: 0 points, 0.4% risk of major cardiac event Pulmonary --no pulmonary history Neurological --no neurological or neurosurgical history; no history of trauma Anesthesia --no reported problems with anesthesia ECT is a low risk procedure. The relative benefits of the planned procedure outweigh the relative risks for this patient at this time. Visit type - Emergency Visit Emergency Visit: No - New Patient This patient is new to me today: Yes Date on this admission: 04/29/19 - Critical Care Critical Care patient: No
== END 2019-04-28 08:50 | disposition home or self-care (01) ==
LOC: FECT 05:36
PROVIDERS: ATTEND Psychiatry & Neurology Psychiatry
PROC: GZB4ZZZ Other Electroconvulsive Therapy (ICD-10-PCS; principal; 2019-04-28 07:45)
DX: F33.2 Major depressive disorder, recurrent severe without psychotic features (principal)
CPT/HCPCS: 90870; 94760

== ENCOUNTER 2019-05-05 05:38 | Day surgery (SDC) | payer OTHER ==
[2019-05-05 06:22] VITALS: TEMP 98.2; BMI 18.7
[2019-05-05] MEDS ORDERED: KETAMINE HCL 500 MG/10 ML VIAL ONE (06:56)
[2019-05-05 08:42] VITALS: BP 136/86; PULSE 85
== END 2019-05-05 08:30 | disposition home or self-care (01) ==
LOC: FECT 05:38
PROVIDERS: ATTEND Psychiatry & Neurology Psychiatry
PROC: GZB4ZZZ Other Electroconvulsive Therapy (ICD-10-PCS; principal; 2019-05-05 07:30)
DX: F33.2 Major depressive disorder, recurrent severe without psychotic features (principal)
CPT/HCPCS: 90870; 94760

== ENCOUNTER 2019-05-12 05:43 | Day surgery (SDC) | payer OTHER ==
[2019-05-12 06:25] VITALS: BMI 20.4
[2019-05-12] MEDS ORDERED: KETAMINE HCL 500 MG/10 ML VIAL ONE (07:09)
[2019-05-12 09:14] VITALS: TEMP 97.6
[2019-05-12 09:15] VITALS: BP 128/82; PULSE 89
== END 2019-05-12 09:20 | disposition home or self-care (01) ==
LOC: FECT 05:43
PROVIDERS: ATTEND Psychiatry & Neurology Psychiatry
PROC: GZB4ZZZ Other Electroconvulsive Therapy (ICD-10-PCS; principal; 2019-05-12 07:45)
DX: F33.2 Major depressive disorder, recurrent severe without psychotic features (principal)
CPT/HCPCS: 90870; 94760

== ENCOUNTER 2019-05-21 05:42 | Day surgery (SDC) | payer OTHER ==
[2019-05-21] MEDS ORDERED: KETAMINE HCL 500 MG/10 ML VIAL ONE (06:56)
[2019-05-21] MEDS ORDERED: ONDANSETRON 4 MG/2 ML VIAL ONE (06:56)
[2019-05-21 07:33] VITALS: BMI 20.4
[2019-05-21 08:07] VITALS: BP 131/89; PULSE 87; TEMP 98.2
[2019-05-21] MEDS ORDERED: ONDANSETRON 4 MG/2 ML VIAL IVPUSH PRN (10:13)
[2019-05-21] MEDS ORDERED: ACETAMINOPHEN 325 MG TABLET (FP) PO PRN (10:13)
== END 2019-05-21 08:15 | disposition home or self-care (01) ==
LOC: FECT 05:42
PROVIDERS: ATTEND Psychiatry & Neurology Psychiatry
PROC: GZB4ZZZ Other Electroconvulsive Therapy (ICD-10-PCS; principal; 2019-05-21 07:45)
DX: F33.2 Major depressive disorder, recurrent severe without psychotic features (principal)
CPT/HCPCS: 90870; 94760

== ENCOUNTER 2019-05-26 06:58 | Day surgery (SDC) | payer OTHER ==
[2019-05-21 12:58] VITALS: BMI 20.4
[2019-05-26] MEDS ORDERED: KETAMINE HCL 500 MG/10 ML VIAL ONE (07:59)
[2019-05-26 09:44] VITALS: TEMP 98
[2019-05-26 09:57] VITALS: BP 136/90; PULSE 88
== END 2019-05-26 09:30 | disposition home or self-care (01) ==
LOC: FECT 06:58
PROVIDERS: ATTEND Psychiatry & Neurology Psychiatry
PROC: GZB4ZZZ Other Electroconvulsive Therapy (ICD-10-PCS; principal; 2019-05-26 08:00)
DX: F32.9 Major depressive disorder, single episode, unspecified (principal)
CPT/HCPCS: 90870; 94760

== ENCOUNTER 2019-06-02 05:43 | Day surgery (SDC) | payer OTHER ==
--- NOTE | 2019-06-02 07:18 | HP ---
Check new blood work CHIEF COMPLAINT: Major depressive disorder PCP: [facility] Primary Psychiatrist: [facility] HISTORY OF PRESENT ILLNESS: 37 year-old male with a PMH significant for depression, anxiety, schizophrenia, and tachycardia. Patient has been undergoing ECT since 2016. Patient presents today for ECT. Recent Events: * labs drawn today PAST MEDICAL HISTORY: Depression Anxiety Schizophrenia Tachycardia PAST SURGICAL HISTORY: Left knee tendon repair x 15 years Social History: lives at [employer] [facility] [employer] in [place]; unemployed Smoking: quite 9 months ago Alcohol: sober x 3 years Drugs: no Family History: mother 60 COPD/emphysema; father 66 a&w; 2 brothers a&w Allergies No Known Drug Allergies Allergy (Verified 01/13/19 15:23) HOME MEDICATIONS: Home Medications Medication Instructions Recorded Clozapine [Clozapine Odt] 100 mg PO ASDIR 01/07/14 Clozapine [Clozapine Odt] 600 mg PO HS 01/07/14 Bupropion HCl [Wellbutrin Xl] 450 mg PO DAILY 07/02/16 Esomeprazole Magnesium 40 mg PO HS 07/02/16 levETIRAcetam [Keppra Xr -] 750 mg PO BID 07/02/16 traZODone HCL [Desyrel -] 300 mg PO HS 07/02/16 Potassium Chloride [Klor-Con] 20 meq PO DAILY 07/03/16 Risperidone [Risperdal] 2 mg PO BID 07/11/16 Clozapine [Clozapine Odt] 100 mg PO DAILY 02/19/17 Metoprolol Succinate 50 mg PO HS 11/19/17 Benztropine Mesylate [Cogentin -] 1 mg PO BID 04/25/18 Polyethylene Glycol 3350 [Miralax 17 gm PO HS PRN 11/25/18 119 gm Btl -] REVIEW OF SYSTEMS CONSTITUTIONAL: Absent: fever, chills, diaphoresis, generalized weakness, malaise, loss of appetite, weight change HEENT: Absent: rhinorrhea, nasal congestion, throat pain, throat swelling, difficulty swallowing, mouth swelling, ear pain, eye pain, visual changes CARDIOVASCULAR: Absent: chest pain, syncope, palpitations, irregular heart rate, lightheadedness , peripheral edema RESPIRATORY: Absent: cough, shortness of breath, dyspnea with exertion, orthopnea, wheezing, stridor, hemoptysis GASTROINTESTINAL: Absent: abdominal pain, abdominal distension, nausea, vomiting, diarrhea, constipation, melena, hematochezia GENITOURINARY: Absent: dysuria, frequency, urgency, hesitancy, hematuria, flank pain, genital pain MUSCULOSKELETAL: Absent: myalgia, arthralgia, joint swelling, back pain, neck pain SKIN: Absent: rash, itching, pallor HEMATOLOGIC/IMMUNOLOGIC: Absent: easy bleeding, easy bruising, lymphadenopathy, frequent infections ENDOCRINE: Absent: unexplained weight gain, unexplained weight loss, heat intolerance, cold intolerance NEUROLOGIC: Absent: headache, focal weakness or paresthesias, dizziness, unsteady gait, seizure, mental status changes, bladder or bowel incontinence Laboratory Tests 06/02/19 06/02/19 07:35 07:35 WBC 9.2 RBC 4.28 Hgb 12.9 Hct 39.0 MCV 91.2 MCH 30.1 MCHC 33.1 RDW 13.4 Plt Count 371 MPV 7.4 L Absolute Neuts (auto) 5.0 Neutrophils % 54.1 Lymphocytes % 25.5 Monocytes % 7.1 Eosinophils % 12.0 H Basophils % 1.3 Sodium 138 Potassium 4.2 Chloride 107 Carbon Dioxide 26 Anion Gap 5 L BUN 11.0 Creatinine 1.0 Est GFR (CKD-EPI)AfAm 110.17 Est GFR (CKD-EPI)NonAf 95.05 Random Glucose 93 Calcium 8.8 Magnesium 1.9 Total Bilirubin 0.8 AST 23 ALT 24 Alkaline Phosphatase 72 Total Protein 6.5 Albumin 3.8 PHYSICAL EXAMINATION Vital Signs (72 hours) 06/02/19 06/02/19 06/02/19 07:27 08:45 08:50 Temperature 98.0 F Pulse Rate 82 81 101 H Respiratory 18 18 13 Rate Blood Pressure 120/79 118/81 126/83 O2 Sat by Pulse 99 99 98 Oximetry (%) 06/02/19 06/02/19 06/02/19 08:55 09:00 09:10 Temperature 98.2 F Pulse Rate 99 H 94 H 92 H Respiratory 16 16 18 Rate Blood Pressure 124/74 131/84 127/90 O2 Sat by Pulse 100 98 100 Oximetry (%) 06/02/19 06/02/19 06/02/19 09:14 09:40 09:45 Temperature 98.0 F 98.0 F 98.0 F Pulse Rate 94 H 89 89 Respiratory 16 18 18 Rate Blood Pressure 131/84 131/89 131/89 O2 Sat by Pulse 98 100 Oximetry (%) GENERAL: Awake, alert, and fully oriented, in no acute distress. HEAD: Normal with no signs of trauma. EYES: Pupils equal, round and reactive to light, sclera anicteric, conjunctiva clear. LUNGS: Breath sounds equal, clear to auscultation bilaterally. No wheezes, and no crackles. No accessory muscle use. HEART: Regular rate and rhythm, normal S1 and S2 ABDOMEN: Soft, nontender, not distended MUSCULOSKELETAL: Normal range of motion at all joints. No bony deformities or tenderness. No CVA tenderness. UPPER EXTREMITIES: 2+ pulses, warm, well-perfused. No cyanosis. No clubbing. No peripheral edema. LOWER EXTREMITIES: 2+ pulses, warm, well-perfused. No calf tenderness. No peripheral edema. NEUROLOGICAL: Cranial nerves II-XII intact. Normal speech. ASSESSMENT/PLAN: 37 year-old male with a PMH significant for depression, anxiety, schizophrenia, and tachycardia. Patient presents today for ECT. Cardiac --tachycardia well-controlled on current meds --Revised Cardiac Risk Index for Pre-Operative Risk: 0 points, 0.4% risk of major cardiac event Pulmonary --no pulmonary history Neurological --no neurological or neurosurgical history; no history of trauma Anesthesia --no reported problems with anesthesia ECT is a low risk procedure. The relative benefits of the planned procedure outweigh the relative risks for this patient at this time. Visit type - Emergency Visit Emergency Visit: No - New Patient This patient is new to me today: Yes Date on this admission: 06/03/19 - Critical Care Critical Care patient: No
[2019-06-02 07:34] VITALS: TEMP 98
[2019-06-02 07:46] VITALS: BMI 20.2
[2019-06-02 08:16] LABS: BASO % 1.3 % (0-2.0); HEMOGLOBIN 12.9 GM/dl (11.7-16.9); LYMPH % 25.5 % (8-40); MCH 30.1 pg (25.7-33.7); MCHC 33.1 g/dl (32.0-35.9); MEAN CELL VOLUME 91.2 fl (80-96); MEAN PLT VOLUME 7.4 fl (7.5-11.1); MONO % 7.1 % (3.8-10.2); NEUT % 54.1 % (42.8-82.8); PLATELET COUNT 371 K/MM3 (134-434); RBC 4.28 M/mm3 (4.00-5.60); RDW 13.4 % (11.9-15.9); WHITE BLOOD COUNT 9.2 K/mm3 (4.0-10.8)
[2019-06-02 08:23] LABS: ALBUMIN 3.8 g/dl (3.4-5.0); BILIRUBIN,TOTAL 0.8 mg/dl (0.2-1); CALCIUM 8.8 mg/dl (8.5-10); MAGNESIUM 1.9 mg/dL (1.8-2.4); POTASSIUM 4.2 mmol/L (3.5-5.1); TOT PROT 6.5 g/dl (6.4-8.2)
[2019-06-02] MEDS ORDERED: KETAMINE HCL 500 MG/10 ML VIAL ONE (08:23)
[2019-06-02] MEDS ORDERED: ACETAMINOPHEN 325 MG TABLET (FP) PO PRN (09:07)
[2019-06-02 09:55] VITALS: BP 131/89; PULSE 89
== END 2019-06-02 09:45 | disposition home or self-care (01) ==
LOC: FECT 05:43
PROVIDERS: ATTEND Psychiatry & Neurology Psychiatry
PROC: GZB4ZZZ Other Electroconvulsive Therapy (ICD-10-PCS; principal; 2019-06-02 07:30)
DX: F32.9 Major depressive disorder, single episode, unspecified (principal)
CPT/HCPCS: 36415; 80053; 83735; 85025; 90870; 94760

== ENCOUNTER 2019-06-09 05:38 | Day surgery (SDC) | payer OTHER ==
[2019-06-09 06:49] VITALS: TEMP 98.2; BMI 20.2
[2019-06-09] MEDS ORDERED: KETAMINE HCL 500 MG/10 ML VIAL ONE (07:14)
[2019-06-09 08:57] VITALS: BP 122/89; PULSE 88
== END 2019-06-09 09:00 | disposition home or self-care (01) ==
LOC: FECT 05:38
PROVIDERS: ATTEND Psychiatry & Neurology Psychiatry
PROC: GZB4ZZZ Other Electroconvulsive Therapy (ICD-10-PCS; principal; 2019-06-09 07:15)
DX: F33.2 Major depressive disorder, recurrent severe without psychotic features (principal)
CPT/HCPCS: 90870; 94760

== ENCOUNTER 2019-06-23 05:42 | Day surgery (SDC) | payer OTHER ==
[2019-06-23 06:39] VITALS: TEMP 98; BMI 20.2
[2019-06-23] MEDS ORDERED: KETAMINE HCL 500 MG/10 ML VIAL ONE (07:02)
[2019-06-23 08:52] VITALS: BP 121/65; PULSE 88
== END 2019-06-23 09:00 | disposition home or self-care (01) ==
LOC: FECT 05:42
PROVIDERS: ATTEND Psychiatry & Neurology Psychiatry
PROC: GZB4ZZZ Other Electroconvulsive Therapy (ICD-10-PCS; principal; 2019-06-23 07:15)
DX: F32.9 Major depressive disorder, single episode, unspecified (principal)
CPT/HCPCS: 90870; 94760

== ENCOUNTER 2019-06-30 05:57 | Day surgery (SDC) | payer OTHER ==
[2019-06-30 06:29] VITALS: BMI 20.1
[2019-06-30] MEDS ORDERED: LACTATED RINGERS SOLUTION 1,000 ML IV SCH (07:00)
[2019-06-30] MEDS ORDERED: KETAMINE HCL 500 MG/10 ML VIAL ONE (07:00)
[2019-06-30 08:18] VITALS: TEMP 97.6
[2019-06-30 08:39] VITALS: BP 128/81; PULSE 81
== END 2019-06-30 08:41 | disposition home or self-care (01) ==
LOC: FECT 05:57
PROVIDERS: ATTEND Psychiatry & Neurology Psychiatry
PROC: GZB4ZZZ Other Electroconvulsive Therapy (ICD-10-PCS; principal; 2019-06-30 08:00)
DX: F32.9 Major depressive disorder, single episode, unspecified (principal)
CPT/HCPCS: 90870; 94760

== ENCOUNTER 2019-07-14 05:42 | Day surgery (SDC) | payer OTHER ==
[2019-07-06 15:03] VITALS: BMI 20.1
[2019-07-14 06:36] VITALS: TEMP 97.8
[2019-07-14] MEDS ORDERED: KETAMINE HCL 500 MG/10 ML VIAL ONE (06:52)
[2019-07-14 08:56] VITALS: BP 133/88; PULSE 88
--- NOTE | 2019-07-14 10:31 | EKG ---
Test Reason : Blood Pressure : / mmHG Vent. Rate : 080 BPM Atrial Rate : 080 BPM P-R Int : 168 ms QRS Dur : 092 ms QT Int : 380 ms P-R-T Axes : 067 064 053 degrees QTc Int : 438 ms NORMAL SINUS RHYTHM NORMAL ECG WHEN COMPARED WITH ECG OF 30-DEC-2018 06:12, NO SIGNIFICANT CHANGE WAS FOUND Confirmed by MD BENTLEY GREGORY ([id number]) on 07/14/2019 10:30:51 AM Also confirmed by MD Putnam Edward ([id number]) on 07/14/2019 10:31:00 AM Referred By: Fran Bundy Confirmed By:Paresh Putnam MD
--- NOTE | 2019-07-14 16:22 | HP ---
CHIEF COMPLAINT: Major depressive disorder PCP: [facility] Primary Psychiatrist: [facility] HISTORY OF PRESENT ILLNESS: 37 year-old male with a PMH significant for depression, anxiety, schizophrenia, and tachycardia. Patient has been undergoing ECT since 2016. Patient presents today for ECT. Recent Events: * none reported PAST MEDICAL HISTORY: Depression Anxiety Schizophrenia Tachycardia PAST SURGICAL HISTORY: Left knee tendon repair x 15 years Social History: lives at [employer] [facility] [employer] in [place]; unemployed Smoking: quite 9 months ago Alcohol: sober x 3 years Drugs: no Family History: mother 60 COPD/emphysema; father 66 a&w; 2 brothers a&w Allergies No Known Drug Allergies Allergy (Verified 07/06/19 14:57) HOME MEDICATIONS: Home Medications Medication Instructions Recorded Clozapine [Clozapine Odt] 100 mg PO ASDIR 01/07/14 Clozapine [Clozapine Odt] 600 mg PO HS 01/07/14 Bupropion HCl [Wellbutrin Xl] 450 mg PO DAILY 07/02/16 Esomeprazole Magnesium 40 mg PO HS 07/02/16 levETIRAcetam [Keppra Xr -] 750 mg PO BID 07/02/16 traZODone HCL [Desyrel -] 300 mg PO HS 07/02/16 Potassium Chloride [Klor-Con] 20 meq PO DAILY 07/03/16 Risperidone [Risperdal] 2 mg PO BID 07/11/16 Clozapine [Clozapine Odt] 100 mg PO DAILY 02/19/17 Metoprolol Succinate 50 mg PO HS 11/19/17 Benztropine Mesylate [Cogentin -] 1 mg PO BID 04/25/18 Polyethylene Glycol 3350 [Miralax 17 gm PO HS PRN 11/25/18 119 gm Btl -] REVIEW OF SYSTEMS CONSTITUTIONAL: Absent: fever, chills, diaphoresis, generalized weakness, malaise, loss of appetite, weight change HEENT: Absent: rhinorrhea, nasal congestion, throat pain, throat swelling, difficulty swallowing, mouth swelling, ear pain, eye pain, visual changes CARDIOVASCULAR: Absent: chest pain, syncope, palpitations, irregular heart rate, lightheadedness , peripheral edema RESPIRATORY: Absent: cough, shortness of breath, dyspnea with exertion, orthopnea, wheezing, stridor, hemoptysis GASTROINTESTINAL: Absent: abdominal pain, abdominal distension, nausea, vomiting, diarrhea, constipation, melena, hematochezia GENITOURINARY: Absent: dysuria, frequency, urgency, hesitancy, hematuria, flank pain, genital pain MUSCULOSKELETAL: Absent: myalgia, arthralgia, joint swelling, back pain, neck pain SKIN: Absent: rash, itching, pallor HEMATOLOGIC/IMMUNOLOGIC: Absent: easy bleeding, easy bruising, lymphadenopathy, frequent infections ENDOCRINE: Absent: unexplained weight gain, unexplained weight loss, heat intolerance, cold intolerance NEUROLOGIC: Absent: headache, focal weakness or paresthesias, dizziness, unsteady gait, seizure, mental status changes, bladder or bowel incontinence PHYSICAL EXAMINATION Vital Signs - 24 hr 07/14/19 07/14/19 07/14/19 06:29 08:02 08:05 Temperature 97.8 F Pulse Rate 80 90 89 Respiratory 18 13 10 Rate Blood Pressure 129/88 133/92 133/92 O2 Sat by Pulse 100 100 100 Oximetry (%) 07/14/19 07/14/19 07/14/19 08:10 08:15 08:20 Temperature Pulse Rate 90 89 89 Respiratory 10 16 16 Rate Blood Pressure 132/92 141/100 135/90 O2 Sat by Pulse 100 99 99 Oximetry (%) 07/14/19 07/14/19 07/14/19 08:25 08:55 09:10 Temperature 97.8 F 97.8 F 97.8 F Pulse Rate 93 H 88 88 Respiratory 18 18 18 Rate Blood Pressure 126/84 133/88 133/88 O2 Sat by Pulse 97 99 Oximetry (%) GENERAL: Awake, alert, and fully oriented, in no acute distress. HEAD: Normal with no signs of trauma. EYES: Pupils equal, round and reactive to light, sclera anicteric, conjunctiva clear. LUNGS: Breath sounds equal, clear to auscultation bilaterally. No wheezes, and no crackles. No accessory muscle use. HEART: Regular rate and rhythm, normal S1 and S2 ABDOMEN: Soft, nontender, not distended MUSCULOSKELETAL: Normal range of motion at all joints. No bony deformities or tenderness. No CVA tenderness. UPPER EXTREMITIES: 2+ pulses, warm, well-perfused. No cyanosis. No clubbing. No peripheral edema. LOWER EXTREMITIES: 2+ pulses, warm, well-perfused. No calf tenderness. No peripheral edema. NEUROLOGICAL: Cranial nerves II-XII intact. Normal speech. ASSESSMENT/PLAN: 37 year-old male with a PMH significant for depression, anxiety, schizophrenia, and tachycardia. Patient presents today for ECT. Cardiac --no cardiac history --Revised Cardiac Risk Index for Pre-Operative Risk: 0 points, 0.4% risk of major cardiac event Pulmonary --no pulmonary history Neurological --no neurological or neurosurgical history; no history of trauma Anesthesia --no reported problems with anesthesia ECT is a low risk procedure. The relative benefits of the planned procedure outweigh the relative risks for this patient at this time. Visit type - Emergency Visit Emergency Visit: No - New Patient This patient is new to me today: Yes Date on this admission: 07/14/19 - Critical Care Critical Care patient: No
== END 2019-07-14 09:10 | disposition home or self-care (01) ==
LOC: FECT 05:42
PROVIDERS: ATTEND Psychiatry & Neurology Psychiatry
PROC: GZB4ZZZ Other Electroconvulsive Therapy (ICD-10-PCS; principal; 2019-07-14 07:00)
DX: F33.2 Major depressive disorder, recurrent severe without psychotic features (principal)
CPT/HCPCS: 90870; 93005; 94760

== ENCOUNTER 2019-07-21 06:47 | Day surgery (SDC) | payer OTHER ==
[2019-07-21 07:12] VITALS: TEMP 98.2; BMI 20.1
[2019-07-21] MEDS ORDERED: KETAMINE HCL 500 MG/10 ML VIAL ONE (07:23)
[2019-07-21 08:49] VITALS: BP 131/87; PULSE 87
== END 2019-07-21 09:00 | disposition home or self-care (01) ==
LOC: FECT 06:47
PROVIDERS: ATTEND Psychiatry & Neurology Psychiatry
PROC: GZB4ZZZ Other Electroconvulsive Therapy (ICD-10-PCS; principal; 2019-07-21 07:30)
DX: F32.9 Major depressive disorder, single episode, unspecified (principal)
CPT/HCPCS: 90870; 94760

== ENCOUNTER 2019-07-28 05:42 | Day surgery (SDC) | payer OTHER ==
[2019-07-27 13:02] VITALS: BMI 20.1
[2019-07-28 07:00] VITALS: TEMP 98
[2019-07-28] MEDS ORDERED: KETAMINE HCL 500 MG/10 ML VIAL ONE (07:17)
[2019-07-28 08:43] VITALS: BP 137/90; PULSE 88
== END 2019-07-28 08:45 | disposition home or self-care (01) ==
LOC: FECT 05:42
PROVIDERS: ATTEND Psychiatry & Neurology Psychiatry
PROC: GZB4ZZZ Other Electroconvulsive Therapy (ICD-10-PCS; principal; 2019-07-28 07:15)
DX: F32.9 Major depressive disorder, single episode, unspecified (principal)
CPT/HCPCS: 90870; 94760

== ENCOUNTER 2019-08-04 05:48 | Day surgery (SDC) | payer OTHER ==
[2019-08-04 06:46] VITALS: TEMP 97.9; BMI 19.1
[2019-08-04] MEDS ORDERED: KETAMINE HCL 500 MG/10 ML VIAL ONE (07:10)
[2019-08-04 08:40] VITALS: BP 132/82; PULSE 89
== END 2019-08-04 08:40 | disposition home or self-care (01) ==
LOC: FECT 05:48
PROVIDERS: ATTEND Psychiatry & Neurology Psychiatry
PROC: GZB4ZZZ Other Electroconvulsive Therapy (ICD-10-PCS; principal; 2019-08-04 08:00)
DX: F33.2 Major depressive disorder, recurrent severe without psychotic features (principal)
CPT/HCPCS: 90870; 94760

== ENCOUNTER 2019-08-11 05:50 | Day surgery (SDC) | payer OTHER ==
[2019-08-11 06:13] VITALS: TEMP 97.6; BMI 19.1
[2019-08-11] MEDS ORDERED: KETAMINE HCL 500 MG/10 ML VIAL ONE (06:59)
[2019-08-11] MEDS ORDERED: oxyCODONE HCL 5 MG TABLET PO PRN (07:07)
[2019-08-11] MEDS ORDERED: ONDANSETRON 4 MG/2 ML VIAL IVPUSH PRN (07:07)
[2019-08-11 08:35] VITALS: BP 132/91; PULSE 89
== END 2019-08-11 08:35 | disposition home or self-care (01) ==
LOC: FECT 05:50
PROVIDERS: ATTEND Psychiatry & Neurology Psychiatry
PROC: GZB4ZZZ Other Electroconvulsive Therapy (ICD-10-PCS; principal; 2019-08-11 07:15)
DX: F33.2 Major depressive disorder, recurrent severe without psychotic features (principal)
CPT/HCPCS: 90870; 94760

== ENCOUNTER 2019-08-17 05:51 | Day surgery (SDC) | payer OTHER ==
[2019-08-17] MEDS ORDERED: LACTATED RINGERS SOLUTION 1,000 ML IV SCH (07:00)
[2019-08-17 07:30] VITALS: TEMP 98.3; BMI 18.7
--- NOTE | 2019-08-17 07:36 | HP ---
CHIEF COMPLAINT: Major depressive disorder PCP: [facility] Primary Psychiatrist: [facility] HISTORY OF PRESENT ILLNESS: 37 year-old male with a PMH significant for depression, anxiety, schizophrenia, and tachycardia. Patient has been undergoing ECT since 2016. Patient presents today for ECT. Recent Events: * none reported PAST MEDICAL HISTORY: Depression Anxiety Schizophrenia Tachycardia PAST SURGICAL HISTORY: Left knee tendon repair x 15 years Social History: lives at [employer] [facility] [employer] in [place]; unemployed Smoking: quite 9 months ago Alcohol: sober x 3 years Drugs: no Family History: mother 60 COPD/emphysema; father 66 a&w; 2 brothers a&w Allergies No Known Drug Allergies Allergy (Verified 07/06/19 14:57) HOME MEDICATIONS: Home Medications Medication Instructions Recorded Clozapine [Clozapine Odt] 100 mg PO ASDIR 01/07/14 Clozapine [Clozapine Odt] 600 mg PO HS 01/07/14 Bupropion HCl [Wellbutrin Xl] 450 mg PO DAILY 07/02/16 Esomeprazole Magnesium 40 mg PO HS 07/02/16 levETIRAcetam [Keppra Xr -] 750 mg PO BID 07/02/16 traZODone HCL [Desyrel -] 300 mg PO HS 07/02/16 Potassium Chloride [Klor-Con] 20 meq PO DAILY 07/03/16 Risperidone [Risperdal] 2 mg PO BID 07/11/16 Clozapine [Clozapine Odt] 100 mg PO DAILY 02/19/17 Metoprolol Succinate 50 mg PO HS 11/19/17 Benztropine Mesylate [Cogentin -] 1 mg PO BID 04/25/18 Polyethylene Glycol 3350 [Miralax 17 gm PO HS PRN 11/25/18 119 gm Btl -] REVIEW OF SYSTEMS CONSTITUTIONAL: Absent: fever, chills, diaphoresis, generalized weakness, malaise, loss of appetite, weight change HEENT: Absent: rhinorrhea, nasal congestion, throat pain, throat swelling, difficulty swallowing, mouth swelling, ear pain, eye pain, visual changes CARDIOVASCULAR: Absent: chest pain, syncope, palpitations, irregular heart rate, lightheadedness , peripheral edema RESPIRATORY: Absent: cough, shortness of breath, dyspnea with exertion, orthopnea, wheezing, stridor, hemoptysis GASTROINTESTINAL: Absent: abdominal pain, abdominal distension, nausea, vomiting, diarrhea, constipation, melena, hematochezia GENITOURINARY: Absent: dysuria, frequency, urgency, hesitancy, hematuria, flank pain, genital pain MUSCULOSKELETAL: Absent: myalgia, arthralgia, joint swelling, back pain, neck pain SKIN: Absent: rash, itching, pallor HEMATOLOGIC/IMMUNOLOGIC: Absent: easy bleeding, easy bruising, lymphadenopathy, frequent infections ENDOCRINE: Absent: unexplained weight gain, unexplained weight loss, heat intolerance, cold intolerance NEUROLOGIC: Absent: headache, focal weakness or paresthesias, dizziness, unsteady gait, seizure, mental status changes, bladder or bowel incontinence PHYSICAL EXAMINATION Vital Signs - 24 hr 08/17/19 07:22 Temperature 98.3 F Pulse Rate 87 Respiratory 16 Rate Blood Pressure 115/71 O2 Sat by Pulse 97 Oximetry (%) GENERAL: Awake, alert, and fully oriented, in no acute distress. HEAD: Normal with no signs of trauma. EYES: Pupils equal, round and reactive to light, sclera anicteric, conjunctiva clear. LUNGS: Breath sounds equal, clear to auscultation bilaterally. No wheezes, and no crackles. No accessory muscle use. HEART: Regular rate and rhythm, normal S1 and S2 ABDOMEN: Soft, nontender, not distended MUSCULOSKELETAL: Normal range of motion at all joints. No bony deformities or tenderness. No CVA tenderness. UPPER EXTREMITIES: 2+ pulses, warm, well-perfused. No cyanosis. No clubbing. No peripheral edema. LOWER EXTREMITIES: 2+ pulses, warm, well-perfused. No calf tenderness. No peripheral edema. NEUROLOGICAL: Cranial nerves II-XII intact. Normal speech. ASSESSMENT/PLAN: 37 year-old male with a PMH significant for depression, anxiety, schizophrenia, and tachycardia. Patient has been undergoing ECT since 2016. Patient presents today for ECT. Cardiac --no cardiac history --Revised Cardiac Risk Index for Pre-Operative Risk: 0 points, 0.4% risk of major cardiac event Pulmonary --no pulmonary history Neurological --no neurological or neurosurgical history; no history of trauma Anesthesia --no reported problems with anesthesia ECT is a low risk procedure. The relative benefits of the planned procedure outweigh the relative risks for this patient at this time. Visit type - Emergency Visit Emergency Visit: No - New Patient This patient is new to me today: Yes Date on this admission: 08/17/19 - Critical Care Critical Care patient: No
[2019-08-17] MEDS ORDERED: KETAMINE HCL 500 MG/10 ML VIAL ONE (08:03)
[2019-08-17 09:57] VITALS: BP 128/91; PULSE 89
== END 2019-08-17 09:45 | disposition home or self-care (01) ==
LOC: FECT 05:51
PROVIDERS: ATTEND Psychiatry & Neurology Psychiatry
PROC: GZB4ZZZ Other Electroconvulsive Therapy (ICD-10-PCS; principal; 2019-08-17 07:45)
DX: F33.2 Major depressive disorder, recurrent severe without psychotic features (principal)
CPT/HCPCS: 90870; 94760

== ENCOUNTER 2019-08-25 05:43 | Day surgery (SDC) | payer OTHER ==
[2019-08-17 17:25] VITALS: BMI 18.7
[2019-08-25 06:28] VITALS: TEMP 97.9
[2019-08-25] MEDS ORDERED: KETAMINE HCL 500 MG/10 ML VIAL ONE (07:09)
[2019-08-25] MEDS ORDERED: ONDANSETRON 4 MG/2 ML VIAL IVPUSH PRN (07:19)
[2019-08-25] MEDS ORDERED: LACTATED RINGERS SOLUTION 1,000 ML IV SCH (07:30)
[2019-08-25 09:02] VITALS: BP 119/84; PULSE 90
== END 2019-08-25 08:56 | disposition home or self-care (01) ==
LOC: FECT 05:43
PROVIDERS: ATTEND Psychiatry & Neurology Psychiatry
PROC: GZB4ZZZ Other Electroconvulsive Therapy (ICD-10-PCS; principal; 2019-08-25 07:30)
DX: F33.2 Major depressive disorder, recurrent severe without psychotic features (principal)
CPT/HCPCS: 90870; 94760

== ENCOUNTER 2019-09-01 05:56 | Day surgery (SDC) | payer OTHER ==
[2019-09-01 06:30] VITALS: BMI 18.7
[2019-09-01] MEDS ORDERED: KETAMINE HCL 500 MG/10 ML VIAL ONE (06:51)
[2019-09-01] MEDS ORDERED: ONDANSETRON 4 MG/2 ML VIAL IVPUSH PRN (06:55)
[2019-09-01] MEDS ORDERED: LACTATED RINGERS SOLUTION 1,000 ML IV SCH (07:00)
[2019-09-01 08:04] VITALS: TEMP 98.1
[2019-09-01 08:32] VITALS: BP 120/86; PULSE 81
== END 2019-09-01 09:03 | disposition home or self-care (01) ==
LOC: FECT 05:56
PROVIDERS: ATTEND Psychiatry & Neurology Psychiatry
PROC: GZB4ZZZ Other Electroconvulsive Therapy (ICD-10-PCS; principal; 2019-09-01 08:15)
DX: F32.9 Major depressive disorder, single episode, unspecified (principal)
CPT/HCPCS: 90870; 94760

== ENCOUNTER 2019-09-15 05:42 | Day surgery (SDC) | payer OTHER ==
[2019-09-15] MEDS ORDERED: KETAMINE HCL 500 MG/10 ML VIAL ONE (07:08)
[2019-09-15 08:19] VITALS: TEMP 98.3
[2019-09-15 08:36] VITALS: BP 133/91; PULSE 88
[2019-09-15] MEDS ORDERED: ONDANSETRON 4 MG/2 ML VIAL IVPUSH PRN (09:21)
[2019-09-15] MEDS ORDERED: LACTATED RINGERS SOLUTION 1,000 ML IV SCH (09:30)
== END 2019-09-15 08:40 | disposition home or self-care (01) ==
LOC: FECT 05:42
PROVIDERS: ATTEND Psychiatry & Neurology Psychiatry
PROC: GZB4ZZZ Other Electroconvulsive Therapy (ICD-10-PCS; principal; 2019-09-15 07:30)
DX: F33.2 Major depressive disorder, recurrent severe without psychotic features (principal)
CPT/HCPCS: 90870; 94760

== ENCOUNTER 2020-02-22 07:48 | Day surgery (SDC) | payer OTHER ==
--- NOTE | 2020-02-22 08:16 | HP ---
CHIEF COMPLAINT: Major depressive disorder PCP: Dr. Carcamo, [place] Primary Psychiatrist: [facility] HISTORY OF PRESENT ILLNESS: 37 year-old male with a PMH significant for depression, anxiety, schizophrenia, and tachycardia. Patient has been undergoing ECT since 2016. Patient presents today for ECT for the first time following the COVID hiatus. In the interim he was hospitalized for two months at [facility]. Recent Events: * hospitalized x 2 months, discharged one week ago * several medication adjustments made during hospitalization; decreased clozaril; started on monthly haldol injections for hallucinations * reports today several days of jaw twitching PAST MEDICAL HISTORY: Depression Anxiety Schizophrenia Tachycardia PAST SURGICAL HISTORY: Left knee tendon repair x 15 years Social History: lives at [facility] in [place] Smoking: quit 1 year ago Alcohol: sober x 3 years Drugs: no Family History: mother 60 COPD/emphysema; father 66 a&w; 2 brothers a&w Allergies No Known Drug Allergies Allergy (Verified 07/06/19 14:57) Allergies No Known Drug Allergies Allergy (Verified 02/19/20 10:40) HOME MEDICATIONS: Home Medications Medication Instructions Recorded levETIRAcetam [Keppra Xr -] 750 mg PO BID 07/02/16 traZODone HCL [Desyrel -] 300 mg PO HS 07/02/16 Benztropine Mesylate [Cogentin -] 1 mg PO BID 04/25/18 Polyethylene Glycol 3350 [Miralax 17 gm PO HS PRN 11/25/18 119 gm Btl -] Clozapine [Clozapine Odt] 150 mg PO HS 02/19/20 Haloperidol Decanoate [Haldol 100 mg IM ASDIR 02/19/20 Decanoate 100] Metoprolol Succinate [Toprol Xl] 50 mg PO HS 02/19/20 Mirtazapine [Remeron -] 30 mg PO HS 02/19/20 REVIEW OF SYSTEMS CONSTITUTIONAL: Absent: fever, chills, diaphoresis, generalized weakness, malaise, loss of appetite, weight change HEENT: Absent: rhinorrhea, nasal congestion, throat pain, throat swelling, difficulty swallowing, mouth swelling, ear pain, eye pain, visual changes CARDIOVASCULAR: Absent: chest pain, syncope, palpitations, irregular heart rate, lightheadedness, peripheral edema RESPIRATORY: Absent: cough, shortness of breath, dyspnea with exertion, orthopnea, wheezing, stridor, hemoptysis GASTROINTESTINAL: Absent: abdominal pain, abdominal distension, nausea, vomiting, diarrhea, constipation, melena, hematochezia GENITOURINARY: Absent: dysuria, frequency, urgency, hesitancy, hematuria, flank pain, genital pain MUSCULOSKELETAL: Absent: myalgia, arthralgia, joint swelling, back pain, neck pain SKIN: Absent: rash, itching, pallor HEMATOLOGIC/IMMUNOLOGIC: Absent: easy bleeding, easy bruising, lymphadenopathy, frequent infections ENDOCRINE: Absent: unexplained weight gain, unexplained weight loss, heat intolerance, cold intolerance NEUROLOGIC: Absent: headache, focal weakness or paresthesias, dizziness, unsteady gait, seizure, mental status changes, bladder or bowel incontinence PHYSICAL EXAMINATION Vital Signs Temperature 98.5 F 02/22/20 11:30 Pulse Rate 89 02/22/20 11:30 Respiratory Rate 18 02/22/20 11:30 Blood Pressure 136/86 02/22/20 11:30 O2 Sat by Pulse Oximetry (%) 98 02/22/20 11:20 GENERAL: Awake, alert, and fully oriented, in no acute distress. HEAD: Normal with no signs of trauma. EYES: Pupils equal, round and reactive to light, sclera anicteric, conjunctiva clear. LUNGS: Breath sounds equal, clear to auscultation bilaterally. No wheezes, and no crackles. No accessory muscle use. HEART: Regular rate and rhythm, normal S1 and S2 ABDOMEN: Soft, nontender, not distended MUSCULOSKELETAL: Normal range of motion at all joints. No bony deformities or tenderness. No CVA tenderness. UPPER EXTREMITIES: 2+ pulses, warm, well-perfused. No cyanosis. No clubbing. No peripheral edema. LOWER EXTREMITIES: 2+ pulses, warm, well-perfused. No calf tenderness. No peripheral edema. NEUROLOGICAL: Cranial nerves II-XII intact. Normal speech. ASSESSMENT/PLAN: 37 year-old male with a PMH significant for depression, anxiety, schizophrenia, and tachycardia. Patient has been undergoing ECT since 2016. Patient presents today for ECT for the first time following the COVID hiatus. In the interim he was hospitalized for two months at [facility]. Cardiac --no cardiac history --Revised Cardiac Risk Index for Pre-Operative Risk: 0 points, 0.4% risk of major cardiac event Pulmonary --no pulmonary history Neurological --no neurological or neurosurgical history; no history of trauma --reports several days of jaw twitching, not seen on exam today; labs done on 02/17 show Ca and Mg wnl; anesthesia made aware Anesthesia --no reported problems with anesthesia ECT is a low risk procedure. The relative benefits of the planned procedure outweigh the relative risks for this patient at this time. Visit type - Emergency Visit Emergency Visit: No - New Patient This patient is new to me today: Yes Date on this admission: 02/23/20 - Critical Care Critical Care patient: No
[2020-02-22 08:33] VITALS: TEMP 98.5
[2020-02-22] MEDS ORDERED: PROPOFOL 20 ML ONE (09:25)
[2020-02-22] MEDS ORDERED: KETAMINE HCL 500 MG/10 ML VIAL ONE (09:26)
[2020-02-22 11:30] VITALS: BP 136/86; PULSE 89
== END 2020-02-22 11:30 | disposition home or self-care (01) ==
LOC: FECT 07:48
PROVIDERS: ATTEND Psychiatry & Neurology Psychiatry
PROC: GZB4ZZZ Other Electroconvulsive Therapy (ICD-10-PCS; principal; 2020-02-22 08:30)
DX: F33.2 Major depressive disorder, recurrent severe without psychotic features (principal)
CPT/HCPCS: 90870; 94760; U0003

== ENCOUNTER 2020-02-25 06:24 | Day surgery (SDC) | payer OTHER ==
[2020-02-24 12:19] VITALS: BMI 21.4
[2020-02-25] MEDS ORDERED: KETAMINE HCL 200 MG/20 ML VIAL ONE (08:27)
[2020-02-25] MEDS ORDERED: ONDANSETRON 4 MG/2 ML VIAL ONE (08:27)
[2020-02-25] MEDS ORDERED: SUCCINYLCHOLINE CHLORIDE 200 MG/10 ML SYRINGE ONE (08:27)
[2020-02-25] MEDS ORDERED: PROPOFOL 20 ML ONE (08:27)
[2020-02-25 09:33] VITALS: TEMP 98.3
[2020-02-25 10:03] VITALS: BP 118/79; PULSE 76
== END 2020-02-25 10:10 | disposition home or self-care (01) ==
LOC: FECT 06:24
PROVIDERS: ATTEND Psychiatry & Neurology Psychiatry
PROC: GZB4ZZZ Other Electroconvulsive Therapy (ICD-10-PCS; principal; 2020-02-25 10:00)
DX: F32.9 Major depressive disorder, single episode, unspecified (principal)
CPT/HCPCS: 90870; 94760; U0003

== ENCOUNTER 2020-02-29 06:25 | Day surgery (SDC) | payer OTHER ==
[2020-02-25 16:55] VITALS: BMI 21.4
[2020-02-29] MEDS ORDERED: KETAMINE HCL 500 MG/10 ML VIAL ONE (09:00)
[2020-02-29] MEDS ORDERED: PROPOFOL 20 ML ONE ×2 (09:00)
[2020-02-29 10:22] VITALS: TEMP 98.1
[2020-02-29 10:23] VITALS: BP 123/79; PULSE 81
== END 2020-02-29 10:30 | disposition home or self-care (01) ==
LOC: FECT 06:25
PROVIDERS: ATTEND Psychiatry & Neurology Psychiatry
PROC: GZB4ZZZ Other Electroconvulsive Therapy (ICD-10-PCS; principal; 2020-02-29 09:00)
DX: F33.2 Major depressive disorder, recurrent severe without psychotic features (principal)
CPT/HCPCS: 90870; 94760; U0003

== ENCOUNTER 2020-03-11 06:11 | Day surgery (SDC) | payer OTHER ==
[2020-03-11 06:36] VITALS: BMI 21.3
[2020-03-11] MEDS ORDERED: PROPOFOL 20 ML ONE (07:02)
[2020-03-11] MEDS ORDERED: SUCCINYLCHOLINE CHLORIDE 200 MG/10 ML SYRINGE ONE (07:03)
[2020-03-11] MEDS ORDERED: KETAMINE HCL 500 MG/10 ML VIAL ONE (07:03)
[2020-03-11] MEDS ORDERED: ONDANSETRON 4 MG/2 ML VIAL ONE (07:04)
[2020-03-11 08:19] VITALS: TEMP 97.8
[2020-03-11 08:50] VITALS: BP 118/76; PULSE 72
[2020-03-11] MEDS ORDERED: ONDANSETRON 4 MG/2 ML VIAL IVPUSH PRN (12:53)
[2020-03-11] MEDS ORDERED: LACTATED RINGERS SOLUTION 1,000 ML IV SCH (13:00)
== END 2020-03-11 08:50 | disposition home or self-care (01) ==
LOC: FASU 06:11
PROVIDERS: ATTEND Psychiatry & Neurology Psychiatry
PROC: GZB4ZZZ Other Electroconvulsive Therapy (ICD-10-PCS; principal; 2020-03-11 08:00)
DX: F33.2 Major depressive disorder, recurrent severe without psychotic features (principal)
CPT/HCPCS: 90870; 94760

== ENCOUNTER 2020-03-18 06:02 | Day surgery (SDC) | payer OTHER ==
[2020-03-11 15:05] VITALS: BMI 21.3
[2020-03-18] MEDS ORDERED: KETAMINE HCL 500 MG/10 ML VIAL ONE (08:28)
[2020-03-18 10:20] VITALS: PULSE 74; TEMP 98.2
[2020-03-18 10:22] VITALS: BP 124/92
--- NOTE | 2020-03-18 12:45 | HP ---
CHIEF COMPLAINT: Major depressive disorder PCP: [facility] Primary Psychiatrist: [facility] HISTORY OF PRESENT ILLNESS: 39 year-old male with a PMH significant for depression, anxiety, schizophrenia, and tachycardia. Patient has been undergoing ECT since 2015. Mr. Patten was hospitalized from November to January at [facility] 2/ hearing voices. His symptoms have now resolved and he restarted ECT on February 21. Recent Events: none PAST MEDICAL HISTORY: Depression Anxiety Schizophrenia Tachycardia PAST SURGICAL HISTORY: Left knee tendon repair x 15 years Social History: Employment: unemployed Housing: lives with roommate Smoking: quit 1 year ago Alcohol: sober x 3 years Drugs: no Family History: mother 60 COPD/emphysema; father 66 a&w; 2 brothers a&w Allergies: No Known Drug Allergies Allergy (Verified 03/18/20 06:45) HOME MEDICATIONS: Home Medications Medication Instructions Recorded levETIRAcetam [Keppra Xr -] 750 mg PO BID 07/02/16 traZODone HCL [Desyrel -] 300 mg PO HS 07/02/16 Benztropine Mesylate [Cogentin -] 1 mg PO BID 04/25/18 Polyethylene Glycol 3350 [Miralax 17 gm PO DAILY PRN 11/25/18 119 gm Btl -] Clozapine [Clozapine Odt] 150 mg PO HS 02/19/20 Haloperidol Decanoate [Haldol 100 mg IM ASDIR 02/19/20 Decanoate 100] Metoprolol Succinate [Toprol Xl] 50 mg PO HS 02/19/20 Mirtazapine [Remeron -] 30 mg PO HS 02/19/20 REVIEW OF SYSTEMS CONSTITUTIONAL: Absent: fever, chills, diaphoresis, generalized weakness, malaise, loss of appetite, weight change HEENT: Absent: rhinorrhea, nasal congestion, throat pain, throat swelling, di fficulty swallowing, mouth swelling, ear pain, eye pain, visual changes CARDIOVASCULAR: Absent: chest pain, syncope, palpitations, irregular heart rate, lightheadedness, peripheral edema RESPIRATORY: Absent: cough, shortness of breath, dyspnea with exertion, orthopnea, wheezing, stridor, hemoptysis GASTROINTESTINAL:Absent: abdominal pain, abdominal distension, nausea, vomiting, diarrhea, constipation, melena, hematochezia GENITOURINARY: Absent: dysuria, frequency, urgency, hesitancy, hematuria, flank pain, genital pain MUSCULOSKELETAL: Absent: myalgia, arthralgia, joint swelling, back pain, neck pain SKIN: Absent: rash, itching, pallor HEMATOLOGIC/IMMUNOLOGIC: Absent: easy bleeding, easy bruising, lymphadenopathy, frequent infections ENDOCRINE: Absent: unexplained weight gain, unexplained weight loss, heat intolerance, cold intolerance NEUROLOGIC: Absent: headache, focal weakness or paresthesias, dizziness, unsteady gait, seizure, mental status changes, bladder or bowel incontinence PSYCH: denies SI/HI. auditory/visual hallucinations PHYSICAL EXAMINATION Vital Signs - 24 hr 03/18/20 03/18/20 03/18/20 06:53 08:48 08:55 Temperature 98.0 F Pulse Rate 74 73 73 Respiratory 16 14 12 Rate Blood Pressure 121/77 120/77 120/77 O2 Sat by Pulse 99 98 100 Oximetry (%) 03/18/20 03/18/20 03/18/20 09:00 09:05 09:19 Temperature Pulse Rate 71 69 71 Respiratory 13 14 16 Rate Blood Pressure 124/74 124/78 120/83 O2 Sat by Pulse 100 100 98 Oximetry (%) 03/18/20 03/18/20 03/18/20 09:20 09:50 10:00 Temperature 98.2 F Pulse Rate 74 74 74 Respiratory 16 16 16 Rate Blood Pressure 116/88 124/92 124/92 O2 Sat by Pulse 16 L 99 Oximetry (%) GENERAL: Awake, alert, and fully oriented, in no acute distress. HEAD: Normal with no signs of trauma. EYES: Pupils equal, round and reactive to light, sclera anicteric, conjunctiva clear. LUNGS: Breath sounds equal, clear to auscultation bilaterally. No wheezes, and no crackles. No accessory muscle use. HEART: Regular rate and rhythm, normal S1 and S2 ABDOMEN: Soft, nontender, not distended MUSCULOSKELETAL: Normal range of motion at all joints. No bony deformities or tenderness. No CVA tenderness. UPPER EXTREMITIES: 2+ pulses, warm, well-perfused. No cyanosis. No clubbing. No peripheral edema. LOWER EXTREMITIES: 2+ pulses, warm, well-perfused. No calf tenderness. No peripheral edema. NEUROLOGICAL: Cranial nerves II-XII intact. Normal speech. ASSESSMENT/PLAN: 39 year-old male with a PMH significant for depression, anxiety, schizophrenia, and tachycardia. Patient has been undergoing ECT since 2016, recently hospitalized for schizophrenic exacerbation, currently stable for ECT therapies. Cardiac --no cardiac history --Revised Cardiac Risk Index for Pre-Operative Risk: 0 points, 0.4% risk of major cardiac event Pulmonary --no pulmonary history Neurological --no neurological or neurosurgical history; no history of trauma Anesthesia --no reported problems with anesthesia ECT is a low risk procedure. The relative benefits of the planned procedure outweigh the relative risks for this patient at this time. Problem List - Problem (1) Schizophrenia Code(s): F20.9 - SCHIZOPHRENIA, UNSPECIFIED (2) MDD (major depressive disorder) Code(s): F32.9 - MAJOR DEPRESSIVE DISORDER, SINGLE EPISODE, UNSPECIFIED (3) Anxiety Code(s): F41.9 - ANXIETY DISORDER, UNSPECIFIED Visit type - Emergency Visit Emergency Visit: No - New Patient This patient is new to me today: Yes Date on this admission: 03/18/20 - Critical Care Critical Care patient: No
== END 2020-03-18 10:15 | disposition home or self-care (01) ==
LOC: FECT 06:02
PROVIDERS: ATTEND Psychiatry & Neurology Psychiatry
PROC: GZB4ZZZ Other Electroconvulsive Therapy (ICD-10-PCS; principal; 2020-03-18 07:00)
DX: F32.9 Major depressive disorder, single episode, unspecified (principal)
CPT/HCPCS: 90870; 94760

== ENCOUNTER 2020-03-25 07:09 | Day surgery (SDC) | payer OTHER ==
[2020-03-25 07:34] VITALS: BMI 20.5
[2020-03-25] MEDS ORDERED: ONDANSETRON 4 MG/2 ML VIAL ONE (08:37)
[2020-03-25] MEDS ORDERED: KETAMINE HCL 500 MG/10 ML VIAL ONE (08:38)
[2020-03-25] MEDS ORDERED: PROPOFOL 20 ML ONE (08:39)
[2020-03-25 09:53] VITALS: BP 123/87; PULSE 73; TEMP 98.1
== END 2020-03-25 10:35 | disposition home or self-care (01) ==
LOC: FECT 07:09
PROVIDERS: ATTEND Psychiatry & Neurology Psychiatry
PROC: GZB4ZZZ Other Electroconvulsive Therapy (ICD-10-PCS; principal; 2020-03-25 07:30)
DX: F32.9 Major depressive disorder, single episode, unspecified (principal)
CPT/HCPCS: 90870; 94760

== ENCOUNTER 2020-04-01 06:31 | Day surgery (SDC) | payer OTHER ==
--- OUTSIDE RECORDS SUMMARY | 2020-04-01 06:40 | XMS ---
:1980 Author Organization [facility] Care Team Providers Name Role Phone RAMONITA WYMAN MD Unavailable Unavailable Frankie Unavailable [phone] MD BENTLEY Unavailable Unavailable MANDAEN, HUMAYUN Unavailable Unavailable Coon Unavailable Unavailable Coon Unavailable Unavailable Coon Unavailable Unavailable Coon Unavailable Unavailable Coon Unavailable Unavailable Coon Unavailable Unavailable COON ANUSAH B Unavailable Unavailable TRUDY VALENTE MD Unavailable Unavailable [facility] Unavailable Unavailable MD LC Unavailable Unavailable [id number] Unavailable Unavailable KEILA REYNOSO Unavailable Unavailable LC Demarco Unavailable Unavailable TREVIN Unavailable Unavailable GUPTA, REED MAN Unavailable Unavailable Tervin Unavailable [phone] Trevin Unavailable [phone] Trevin Unavailable [phone] Trevin Unavailable [phone] Trevin Unavailable [phone] Trevin Unavailable [phone] Trevin Unavailable [phone] Trevin Unavailable [phone] Trevin Unavailable [phone] Trevin Unavailable [phone] Trevin Unavailable [phone] Trevin Unavailable [phone] Trevin Unavailable [phone] Trevin Unavailable [phone] Trevin Unavailable [phone] Pollack Unavailable Unavailable Pollack Unavailable Unavailable Pollack Unavailable Unavailable Pollack Unavailable Unavailable Re-disclosure Warning The records that you are about to access may contain information from federally- assisted alcohol or drug abuse programs. If such information is present, then the following federally mandated warning applies: This information has been disclosed to you from records protected by federal confidentiality rules (42 CFR part 2). The federal rules prohibit you from making any further disclosure of this information unless further disclosure is expressly permitted by the written consent of the person to whom it pertains or as otherwise permitted by 42 CFR part 2. A general authorization for the release of medical or other information is NOT sufficient for this purpose. The Federal rules restrict any use of the information to criminally investigate or prosecute any alcohol or drug abuse patient.The records that you are about to access may contain highly sensitive health information, the redisclosure of which is protected by Article 27-F of the [facility] Public Health law. If you continue you may haveaccess to information: Regarding HIV / AIDS; Provided by facilities licensed or operated by the [facility] Office of Mental Health; or Provided by the [facility] Office for People With Developmental Disabilities. If such information is present, then the following [facility] mandated warning applies: This information has been disclosed to you from confidential records which are protected by state law. State law prohibits you from making any further disclosure of this information without the specific written consent of the person to whom it pertains, or as otherwise permitted by law. Any unauthorized further disclosure in violation of state law may result in a fine or assisted sentence or both. A general authorization for the release of medical or other information is NOT sufficient authorization for further disclosure. Allergies and Adverse Reactions Type Description Substance Reaction Status Data Source(s ) Drug allergy haloperidol haloperidol Muscle pain [facility] er [facility] on Drug allergy No Known Drug No Known Drug [facility] sonali Allergies Allergies [facility] Corpor[facility] on Food allergy Seafood Seafood [facility] Corpor[facility] on Propensity to Propensity to Propensity to NEXTG EN ([facility] adverse adverse reactions adverse [facility] Medical reactions (disorder) reactions [place]) (disorder) (disorder) Family History Family Member Family Member Family Member Date of Description Data Source(s) Name Gender Status Status Unknown Male Problem 11/13/2017 NEXTGEN ([facility] (finding) 12:00:00 AM [facility] Medic al EDT [place]) Encounters Encounter Providers Location Date Indications Data Source(s) Outpatient [facility] 0 Medical 12:04:00 Center PM EST Outpatient [facility] [place] 0 Medical 12:00:00 Center AM EST Attender: [facility] LIZETTE Carcamo [place] 0 ([facility] 12:46:00 [place] PM EDT - Medical Center) 0 12:46:00 PM EDT Outpatient [facility] [place] 0 Medical 01:11:00 Center PM EDT Outpatient Attender: [facility] ANUSHA CARCAMO 0 Medical ANUSHA 11:47:00 Center BAdmitter: AM EDT ANUSHA WALLACE BReferrer: ANUSHA Matute OutpatientOFFICE/OU Attender: [place] NE XTGEN TPATIENT VISIT, [facility] Anusha Carcamo [place] 0 ( [facility] 11:47:00 [place] AM EDT - Medical Center) 0 11:47:00 AM EDT Outpatient [facility] [place] 0 Medical 12:00:00 Center AM EDT Outpatient [facility] 0 Medical 12:24:00 [place] PM EDT Outpatient Attender: [facility] [place] CARCAMO 0 Medical ANUSHA 12:19:00 Center BAdmitter: PM EDT ANUSHA WALLACE BReferrer: ANUSHA Matute OutpatientWell Attender: [place] [facility] Visit, Anusha [place] 0 ([facility],18-39years 12:19:00 [place] PM EDT - Medical Center) 0 12:19:00 PM EDT Attender: [place] LIZETTE Carcamo [place] 0 ([facility] 09:05:00 [place] AM EDT - Medical Center) 0 09:05:00 AM EDT Outpatient [facility] [place] 0 Medical 12:00:00 Center AM EDT Attender: [place] LIZETTE Carcamo [place] 0 (Saint 11:56:00 [place] AM EDT - Medical Center) 0 11:56:00 AM EDT Outpatient Attender: [facility] CEASAR 0 Medical LC 07:01:00 [place] CHRISTOPHER AM EDT MAdmitter: CHRISTOPHER LC CHRISTOPHER MReferrer: GEORGE Demarco Outpatient Attender: [facility] 0 ([facility] 12:57:[address] [facility] EDT Collaborative ) Patient admitted. Inpatient Attender: RAMONITA [facility]- 11/15/2019 03:16:00 [facility] ALMAZ PM EDT - 02/16/2020 [facility] 10:48:00 PM EDT Patient discharged. Outpatient [facility] 11/15/2019 02:10:00 PM EDT - [address] [place] [address] 04:57:00 PM EDT Patient discharged. Outpatient Attender: [address] 10/13/2019 02:55:09 PM [facility] ([facility] EDT [facility]) Patient admitted. Outpatient Attender: [address] 10/02/2019 07:07:41 AM I ([facility] EDT [facility]) Patient admitted. Outpatient Attender: GEORGE Kaur 09/29/2019 01:06:00 [facility] LCRASHEED VAZQUEZ EDT Center MAdmitter: GEORGE VAZQUEZ MReferrer: GEORGE Demarco Outpatient Attender: ALVARO 09/07/2019 01:27:00 R56.9 [facility] MANDA[facility]: Yvon VALENTE MD R56.9 Outpatient Attender: 09/03/2019 [facility] GEORGE 10:10:00 AM [facility] LC VAZQUEZ MAdmitter: GEORGE VAZQUEZ MReferrer: GEORGE Demarco Outpatient Attender: 08/05/2019 [facility] GEORGE 11:51:00 AM [facility] LC VAZQUEZ MAdmitter: GEORGE VAZQUEZ MReferrer: GEORGE Demarco Outpatient Attender: 07/10/2019 [facility] GEORGE 07:01:00 AM [facility] Medical [place] LC VAZQUEZ MAdmitter: GEORGE VAZQUEZ MReferrer: GEORGE Demarco Attender: Tutwiler 06/19/2019 NEXTGEN ([facility] 01:26:00 PM EST Ron[facility] Medical - 06/19/2019 Center) 01:26:00 PM EST Outpatient 06/18/2019 [facility] 03:27:00 PM EST Medical C enter Outpatient Attender: 06/18/2019 [facility] 10:31:00 AM EST Medica [facility] ANUSHA BAdmitter: ANUSHA WALLACE BReferrer: ANUSHA Matute OutpatientOFFICE Attender: Tutwiler 06/18/2019 NEXT EN ([facility] /OUTPATIENT [facility] 10:31:00 AM EST [facility] Medical VISIT, EST - 06/18/2019 Center) 10:31:00 AM EST Attender: [place] 06/18/2019 [facility] ([facility] 09:07:00 AM EST [facility] - 06/18/2019 [place]) 09:07:00 AM EST Outpatient 06/18/2019 [facility] 12:00:00 AM EST Medical C enter Outpatient Attender: 06/15/2019 [facility] GEORGE 09:28:00 AM [facility] Medical Center LC Gamblemitter: GEORGE VAZQUEZ MReferrer: GEORGE Demarco Outpatient 06/10/2019 [facility] 10:29:00 AM EST Medical C enter Outpatient 06/10/2019 [facility] 12:00:00 AM EST Medical C enter Outpatient Attender: 05/18/2019 [facility] GEORGE 12:30:00 PM [facility] Medical Center LC Gamblemitter: GEORGE VAZQUEZ MReferrer: GEORGE Demarco Outpatient Attender: 04/30/2019 R13.1 [place] KEILA REYNOSO 08:46:[address] AM EDT [address] [place], [place] [address]Admitter: Care Corporat ion KEILA REYNOSOReferrer: KEILA REYNOSO R13.10 Outpatient Attender: EDGARDO 04/30/2019 06:00:00 R13.10 [facility] KEILA DoddAdmitter: AM EDT Health C are KEILA REYNOSOReferrer: KEILA REYNOSO. R13.10 Outpatient Attender: 04/22/2019 [facility] GEORGE PLATT 07:01:00 AM ED[facility] [place] MAdmitter: GEORGE VAZQUEZ MReferrer: GEORGE Demarco Outpatient Attender: 03/26/2019 [facility] GEORGE PLATT 07:01:00 AM EDT [facility] [place] MAdmitter: GEORGE VAZQUEZ MReferrer: GEORGE Demarco Outpatient Attender: ANUSHA Kaur 01/07/2019 [facility] 10:15:00 AM EDT Medica l BAdmitter: Center ANUSHA WALLACE BReferrer: ANUSHA Matute OutpatientOFFICE/ Attender: Anusha Tutwiler 01/07/2019 [facility] OUTPATIENT VISIT, [facility] 10:15:00 AM EDT - (Psychiatric 01/07/2019 [facility] 10:15:00 AM EDT Medical Center) Outpatient 01/07/2019 [facility] 09:40:00 AM EDT Medical Center Attender: Anusha Tutwiler 01/07/2019 MELINA [facility] 08:42:00 AM EDT - ([facility] 01/07/2019 [facility] 08:42:00 AM EDT Medical Center) Outpatient 01/07/2019 [facility] 12:00:00 AM EDT Medical Center Outpatient 01/01/2019 [facility] 10:56:00 AM EDT Medical Center Attender: Anusha Tutwiler 01/01/2019 MELINA [facility] 08:52:00 AM EDT - ([facility] 01/01/2019 [facility] 08:52:00 AM EDT Medical Center) Outpatient 01/01/2019 [facility] 12:00:00 AM EDT Medical Center Outpatient Attender: 12/29/2018 [facility] GEORGE PLATT 07:01:00 AM EDT [facility] [place] MAdmitter: GEORGE VAZQUEZ MReferrer: GEORGE Demarco Outpatient 12/22/2018 [facility] 10:48:13 AM EDT ([facility] ) Patient admitted. Outpatient 11/26/2018 01:08:09 PM EDT [facility] ([facility]) Patient admitted. Outpatient 11/26/2018 [facility] [place] 11:25:00 AM EDT Medical Center Outpatient Attender: 11/26/2018 [facility] [place] [facility] 09:51:00 AM EDT [facility] BAdmitter: ANUSHA AWLLACE BReferrer: ANUSHA Matute OutpatientOFFICE/OUT Attender: [place] 11/26/2018 N EXTGEN PATIENT VISIT, [facility] 09:51:00 AM EDT ([facility] 11/26/2018 [facility] 09:51:00 AM EDT Medical [place]) Attender: Tutwiler 11/26/2018 [facility] 09:29:00 AM EDT ([facility] 11/26/2018 [facility] 09:29:00 AM EDT Medical Center) Outpatient 11/26/2018 [facility] 12:00:00 AM EDT Medical Center Attender: Tutwiler 11/21/2018 [facility] 09:27:00 AM EDT ([facility] 11/21/2018 [facility] 09:27:00 AM EDT Medical Center) Outpatient 11/13/2018 [facility] 12:04:00 PM EDT Medical Center Outpatient 11/13/2018 [facility] 11:50:00 AM EDT Medical Center Attender: Tutwiler 11/13/2018 [facility] 11:22:00 AM EDT ([facility] 11/13/2018 [facility] 11:22:00 AM EDT Medical Center) Attender: Tutwiler 11/13/2018 [facility] 10:57:00 AM EDT ([facility] 11/13/2018 [facility] 10:57:00 AM EDT Medical Center) Outpatient Attender: DASHAWN Kaur 11/13/2018 [facility]ce BRAUNADIAdmitter: 10:18:00 AM EDT [facility] RABADIReferrer: DASHAWN ZHONG OutpatientWell Attender: Tutwiler 11/13/2018 LIZETTE Pretty [facility] 10:18:00 AM EDT ([facility] Est,18-39years - 11/13/2018 [place]io s 10:18:00 AM EDT Medical Center) Outpatient 11/13/2018 [facility] [place] 12:00:00 AM EDT Medical Center Attender: Tutwiler 10/16/2018 [facility] 10:30:00 AM EDT ([facility] 10/16/2018 [place] 10:30:00 AM EDT Medical Center) Outpatient Attender: Natasha 10/02/2018 [facility] [place] VAZQUEZ 07:01:00 AM EDT [facility] GEORGE Gamblemitter: GEORGE Huertaferrer: GEORGE Demarco Attender: Tutwiler 09/26/2018 [facility] 11:08:00 AM EDT ([facility] 09/26/2018 [place] 11:08:00 AM EDT Medical Center) Attender: Tutwiler 09/03/2018 [facility] 01:29:00 PM EST ([facility] 09/03/2018 [place] 01:29:00 PM [facility] Medical Center) Attender: Tutwiler 09/02/2018 [facility] 10:43:00 AM EST ([facility] 09/02/2018 [place] 10:43:00 AM [facility] Medical Center) Attender: Tutwiler 08/29/2018 [facility] 09:36:00 AM EST ([facility] 08/29/2018 [place] 09:36:00 AM [facility] Medical Center) Attender: Tutwiler 08/25/2018 [facility] 09:40:00 AM EST ([facility] 08/25/2018 [place] 09:40:00 AM EST Medical Center) OutpatientOFFICE/OUT Attender: Tutwiler 08/14/2018 N EXTGEN PATIENT VISIT, [facility] 11:00:00 AM EST ([facility] 08/14/2018 [place] 11:00:00 AM [facility] Medical Center) Attender: Tutwiler 08/08/2018 [facility] 03:08:00 PM EST ([facility] 08/08/2018 [place] 03:08:00 PM [facility]) Attender: [facility] Sutton 08/07/2018 [facility] 02:46:00 PM EST (Oskar - 08/07/2018 [place] 02:46:00 PM [facility] Medical [place]) Attender: [facility] Sutton 05/23/2018 [facility] 02:42:00 PM EST (Oskar t - 05/23/2018 [place] 02:42:00 PM [facility] Medical [place]) OutpatientOFFICE/OUT Attender: Saint Verdugovicky 11/18/2017 N EXTGEN PATIENT VISIT, [facility] 10:18:00 AM EDT ([facility] - 11/18/2017 [place] 10:18:00 AM EDT Medical [place]) OutpatientWell [facility]/13/2017 [facility], [facility] 10:26:00 AM EDT (Oskar patton Est,18-39years - 11/13/2017 [place] 10:26:00 AM EDT Medical [place]) Attender: 05/15/2016 [place] [id number] 04:23:00 PM EDT Vi ncents .[id number] [facility]_6766 Outpatient Attender: ST 04/20/2016 Saint VAZQUEZ 10:38:00 AM EDT Shayna LOVINGdmitter: [facility] Attender: 04/20/2016 [facility] [id number] 10:38:00 AM EDT Vi ncents .[id number] [facility]_6766 Attender: Robin [facility] Sutton 04/13/2016 [facility] 03:01:00 PM EDT ( - 04/13/2016 [place] 03:01:00 PM EDT Medical [place]) Attender: 03/13/2016 [facility] [id number] 01:09:00 PM EDT Vi ncents .[id number] [facility]_6766 Attender: 03/12/2016 [facility] [id number] 09:17:00 AM EDT Vi ncents .[id number] [facility]_6766 Attender: 02/23/[id number] 09:00:00 AM EDT Vi ncents .[id number] [facility] NETSMOHALL_6766 Attender: 02/03/[id number] 11:55:00 AM EDT Vi ncents .[id number] [facility]_6766 Attender: 01/17/[id number] 07:10:00 PM EDT Vi ncents .[id number] [facility] NETSMOHALL_6766 Attender: 01/17/[id number] 04:13:00 PM EDT Vi ncents .[id number] [facility]_6766 [facility]OFF[facility]OUT [facility] PATIENT VISIT, MINA Hemphill [place] 10:59:00 AM EDT ([facility] 12/15/2015 [facility] 10:59:00 AM EDT [facility]) OutpatientOFFICE/OUT Attender: Robin Tutwiler 12/13/2015 [facility] PATIENT VISIT, MINA [place] 11:06:00 AM EDT ([facility] 12/13/2015 [place] 11:06:00 AM EDT [facility]) OutpatientOFFICE/OUT Attender: Abram [facility] Herman 12/07/2015 [facility] PATIENT VISIT, MINA Riley 11:35:00 AM EDT [facility]07[facility]2015 [place] Zhong 11:35:00 AM EDT Medical [place]) OutpatientOFFICE/OUT Attender: Robin Tutwiler 11/29/2015 [facility] PATIENT VISIT, WILBERT Hemphill [place] 11:27:00 AM EDT ([facility] 11/29/2015 [place] 11:27:00 AM EDT [facility]) Attender: 03/25/[id number] 03:14:00 PM EDT Vi ncents .[id number] [facility]_6766 Attender: 01/27/[id number] 10:44:00 AM EDT Vi ncents .[id number] [facility] Attender: 12/24/2013 [facility] [id number] 02:17:00 PM EDT Vi ncents .[id number] [facility] Attender: 07/22/2013 [facility] [id number] 04:23:00 PM EST Vi ncents .[id number] [facility] Attender: 10/01/2003 [facility] [id number] 07:00:00 PM EST Vi ncents .[id number] [facility] Attender: 10/01/2003 [facility] [id number] 06:00:00 PM EST Vi ncents .[id number] [facility]66 Attender: 10/01/2003 [place] [id number] 03:00:00 PM EST Vi ncents .[id number] [facility]_6766 Immunizations Vaccine Date Status Description Data Source(s) New in 2011. IIV4 06/18/2019 completed Influenza, Injectable, NEXTGEN ([facility] 12:00:00 AM EST Quadrivalent [facility]) Source: New Immunization Record As of March 1999, 06/18/2019 12:00:00 completed Hep B, adult , 3 NEXTGEN (Saint a 2-dose hepatitis B AM EST dose [facility] schedule for [place]) adolescents (11-15 year olds) was FDA approved for [employer]'s Recombivax HB adult formulation. Use code 43 for the 2-dose. This code should be used for any use of standard adult formulation of hepatitis B vaccine. Source: New Immunization Record As of March 1999, 01/07/2019 12:00:00 completed Hep B, adult , 3 NEXTGEN ([facility] a 2-dose hepatitis B AM EDT dose [facility] schedule for [place]) adolescents (11-15 year olds) was FDA approved for Merck's Recombivax HB adult formulation. Use code 43 for the 2-dose. This code should be used for any use of standard adult formulation of hepatitis B vaccine. Source: New Immunization Record As of March 1999, a 11/26/2018 12:00:00 completed Hep B, Danilo lt NEXTGEN ([facility] 2-dose hepatitis B AM EDT [place] Demarco edical schedule for Center) adolescents (11-15 year olds) was FDA approved for Merck's Recombivax HB adult formulation. Use code 43 for the 2-dose. This code should be used for any use of standard adult formulation of hepatitis B vaccine. Source: New Immunization Record Hep A, adult completed HepA NEXTGEN ([facility]) Source: New Immunization Record Medications Medication Brand Start Product Dose Route Administrative Pharmacy [facility] Indications Reaction Description Data Name Date Form Instructions Instructions Source(s) Trazodone trazod 03/15/ active take 2 NE XTGEN Hydrochlori one 2020 tablet by (Sa int de 150 MG 150 mg 12:00: oral route [place] Oral Tablet tablet 00 AM every day at [facility] 150 mg tablet Omeprazole omepra ORAL active take 1 N EXTGEN 40 MG zole 2020 {caps capsule by (Saint Delayed 40 mg 12:00: ule} oral route Bryce ephs Release capsul 00 AM every day Medi jimena Oral e,river EDT before a Center) Capsule yed meal omeprazole releas 40 mg e capsule,del ayed release Clozaril 50 Clozap 03/15/ active clozapi ne 50 NEXTGEN mg tablet ine 50 2020 MG Oral (Oskar t MG 12:00: Tablet [place] Oral 00 AM [Clozaril] Medical Tablet EDT Center) Mirtazapine Remero ORAL active mirtaza pine NEXTGEN 30 MG Oral n 30 2020 {tabl 30 MG Oral (S aint Tablet mg 12:00: et} Tablet [place] [Remeron] tablet 00 AM [Remeron] Me dical Remeron 30 EDT Center) mg tablet Haldol 1 ML INTRAM active 1 ML NEXTGEN Decanoate halope 2020 mL USCULA haloperidol (Saint 100 mg/mL ridol 12:00: R decanoate Maritza sephs intramuscul decano 00 AM 100 MG/ML Medical ar solution ate EDT Injection Cristel ter) 100 [Haldol] MG/ML Inject ion [Haldo l] 24 HR Toprol 03/15/ active 24 HR NEXTGEN metoprolol XL 50 2019 metoprolol (S aint succinate mg 12:00: succinate 50 [place] 50 MG tablet 00 AM MG Extended Medi jimena Extended ,exten EDT Release Oral C enter) Release ded Tablet Oral Tablet releas [Toprol] [Toprol] e Toprol XL 50 mg tablet,exte nded release benztropine benztr 03/15/ active take 1 NEXTGEN mesylate 1 2019 tablet by (Sa int MG Oral 1 mg 12:00: oral route Wilbert phs Tablet tablet 00 AM every hs prn Me dical benztropine EDT as needed Cristel ter) 1 mg tablet Haldol INTRAM complet Haldol Oskar t Decanoate - 2019 Alanna USCULA ed Decanoate - [facility] 100 MG/1 ML 12:00: gram R 100 MG/1 ML Hospital INTRAMUSCUL 00 AM INTRAMUSCULA AR Oil EDT R Oil benztropine Benztr 02/11/ ORAL complet S aint mesylate 2019 ed [facility] MG Oral Mesyla 12:00: Hospital Tablet te - 1 00 AM MG EDT ORAL Tablet benztropine Benztr ORAL complet Benztr opine [facility] mesylate 1 2019 Table ed Mesylate - 1 [facility] MG Oral Mesyla 12:00: t MG ORAL Hospi alia Tablet te - 1 00 AM Tablet MG EDT ORAL Tablet Clozapine cloZAP ORAL complet cloZAPin e - [facility] 100 MG Oral ine - 2019 Table ed 100 MG ORAL [facility] Tablet 100 MG 12:00: t Tablet Hospita l ORAL 00 AM Tablet EDT Trazodone traZOD ORAL complet traZODon e [facility] Hydrochlori one 2019 Table ed hydrochlorid [facility] de 150 MG hydroc 12:00: t e - 150 MG Hospital Oral Tablet hlorid 00 AM ORAL Table t e - EDT 150 MG ORAL Tablet POLYETHYLEN MiraLA ORAL complet MiraLA X - 17 [facility] E GLYCOL X - 17 2019 Unit ed GM/1 Dose [facility] 3350 142 GM/1 12:00: ORAL Powder Ho spital MG/ML Oral Dose 00 AM for Solution Solution ORAL EDT [Miralax] Powder for Soluti on Risperidone risper ORAL complet risper iDONE [facility] 2 MG Oral iDONE 2019 Table ed - 2 MG ORAL V incents Tablet - 2 MG 12:00: t Tablet Hospita l ORAL 00 AM Tablet EDT 24 HR Wellbu ORAL complet Wellbutrin S aint Bupropion merlene 2019 Table ed XL - 150 MG Vi ncents Hydrochlori XL - 12:00: t ORAL Tablet , Hospital de 150 MG 150 MG 00 AM Extended Extended ORAL EDT Release, 24 Release Tablet HR Oral Tablet , [Wellbutrin Extend ] ed Releas e, 24 HR Clozapine cloZAP ORAL complet cloZAPin e - [facility] 100 MG Oral ine - 2019 Table ed 100 MG ORAL [facility] Tablet 100 MG 12:00: t Tablet Hospita l ORAL 00 AM Tablet EDT Trazodone traZOD ORAL complet traZODon e [facility] Hydrochlori one 2019 Table ed hydrochlorid [facility] de 150 MG hydroc 12:00: t e - 150 MG Hospital Oral Tablet hlorid 00 AM ORAL Table t e - EDT 150 MG ORAL Tablet POLYETHYLEN MiraLA ORAL complet MiraLA X - 17 [facility] GLYCOL X - 17 2019 Unit ed GM/1 Dose [facility] 3350 142 GM/1 12:00: ORAL Powder [facility] MG/ML Oral Dose 00 AM for Solution Solution ORAL EDT [Miralax] Powder for Soluti on benztropine Benztr ORAL complet Benztr opine [facility] mesylate 1 opine 2019 Table ed Mesylate - 1 [facility] MG Oral Mesyla 12:00: t MG ORAL Hospi alia Tablet te - 1 00 AM Tablet MG EDT ORAL Tablet 24 HR [facility] ORAL complet Wellbutrin S aint Bupropion merlene 2019 Table ed XL - 150 MG [facility] Hydrochlori XL - 12:00: t ORAL Tablet , Hospital de 150 MG 150 MG 00 AM Extended Extended ORAL EDT Release, 24 Release Tablet HR Oral Tablet , [Wellbutrin Extend ] ed Releas e, 24 HR Risperidone risper ORAL complet risper iDONE [facility] 2 MG Oral iDONE 2019 Table ed - 2 MG ORAL [facility] Tablet - 2 MG 12:00: t Tablet Hospita l ORAL 00 AM Tablet EDT Risperidone risper ORAL complet risper iDONE [facility] 2 MG Oral iDONE 2019 Table ed - 2 MG ORAL [facility] Tablet - 2 MG 12:00: t Tablet Hospita l ORAL 00 AM Tablet EST POLYETHYLEN MiraLA ORAL complet MiraLA X - 17 [facility] E GLYCOL X - 17 2019 Unit ed GM/1 Dose [facility] 3350 142 GM/1 12:00: ORAL Powder [facility] MG/ML Oral Dose 00 AM for Solution Solution ORAL EST Powder for Soluti on benztropine Benztr ORAL complet Benztr opine [facility] mesylate opin2019 Table ed Mesylate - 1 [facility] MG Oral Mesyla 12:00: t MG ORAL Hospi alia Tablet te - 1 00 AM Tablet MG EST ORAL Tablet Clozapine cloZAP ORAL complet cloZAPin e - [facility] 100 MG Oral ine - 2019 Table ed 100 MG ORAL [facility] Tablet 100 MG 12:00: t Tablet Hospita l ORAL 00 AM Tablet EST 24 HR [facility] ORAL complet Wellbutrin S aint Bupropion merlene 2019 Table ed XL - 150 MG [facility] Hydrochlori XL - 12:00: t ORAL Tablet , Hospital de 150 MG 150 MG 00 AM Extended Extended ORAL EST Release, 24 Release Tablet HR Oral Tablet , [Wellbutrin Extend ] ed Releas e, 24 HR Trazodone traZOD ORAL complet traZODon e [facility] Hydrochlori one 2019 Table ed hydrochlorid [facility] de 150 MG hydroc 12:00: t e - 150 MG Hospital Oral Tablet hlorid 00 AM ORAL Table t e - EST 150 MG ORAL Tablet benztropine Benztr ORAL complet Benztr opine [facility] mesylate opine 2019 Table ed Mesylate - 1 [facility] MG Oral Mesyla 12:00: t MG ORAL Hospi alia Tablet te - 1 00 AM Tablet MG EST ORAL Tablet POLYETHYLEN MiraLA ORAL complet MiraLA X - 17 [facility] E GLYCOL X - 17 2019 Unit ed GM/1 Dose [facility] 3350 142 GM/1 12:00: ORAL Powder [facility] MG/ML Oral Dose 00 AM for Solution Solution ORAL EST Powder for Soluti on 24 HR [facility] ORAL complet Wellbutrin S aint Bupropion merlene 2019 Table ed XL - 150 MG [facility] Hydrochlori XL - 12:00: t ORAL Tablet , Hospital de 150 MG 150 MG 00 AM Extended Extended ORAL EST Release, 24 Release Tablet HR Oral Tablet , [Wellbutrin Extend ] ed Releas e, 24 HR Trazodone traZOD ORAL complet traZODon e [facility] Hydrochlori one 2019 Table ed hydrochlorid [facility] de 150 MG hydroc 12:00: t e - 150 MG Hospital Oral Tablet hlorid 00 AM ORAL Table t e - EST 150 MG ORAL Tablet Risperidone risper ORAL complet risper iDONE [facility] 2 MG Oral iDONE 2019 Table ed - 2 MG ORAL [facility] Tablet - 2 MG 12:00: t Tablet Hospita l ORAL 00 AM Tablet EST 24 HR [facility] ORAL complet Wellbutrin S aint Bupropion merlene 2018 Table ed XL - 150 MG [facility] Hydrochlori XL - 12:00: t ORAL Tablet , Hospital de 150 MG 150 MG 00 AM Extended Extended ORAL EDT Release, 24 Release Tablet HR Oral Tablet , [Wellbutrin Extend ] ed Releas e, 24 HR Trazodone traZOD ORAL complet traZODon e [facility] 2018 Table ed hydrochlorid [facility] de 150 MG hydroc 12:00: t e - 150 MG Hospital Oral Tablet hlorid 00 AM ORAL Table t e - EDT 150 MG ORAL Tablet Risperidone risper ORAL complet risper iDONE [facility] 2 MG Oral iDONE 2018 Table ed - 2 MG ORAL [facility] Tablet - 2 MG 12:00: t Tablet Hospita l ORAL 00 AM Tablet EDT 24 HR [facility] ORAL complet Wellbutrin S aint Bupropion merlene 2018 Table ed XL - 150 MG [facility] Hydrochlori XL - 12:00: t ORAL Tablet , Hospital de 150 MG 150 MG 00 AM Extended Extended ORAL EDT Release, 24 Release Tablet HR Oral Tablet , [Wellbutrin Extend ] ed Releas e, 24 HR benztropine Benztr ORAL complet Benztr opine [facility] mesylate 1 opine 2018 Table ed Mesylate - 1 [facility] MG Oral Mesyla 12:00: t MG ORAL Hospi alia Tablet te - 1 00 AM Tablet MG EDT ORAL Tablet POLYETHYLEN MiraLA 10/31/ 1 ORAL complet MiraLA X - 17 [facility] E GLYCOL X - 17 2018 Unit ed GM/1 Dose [facility] 3350 142 GM/1 12:00: ORAL Powder [facility] MG/ML Oral Dose 00 AM for Solution Solution ORAL EDT [Miralax] Powder for Soluti on 24 HR [facility] ORAL complet Wellbutrin S aint Bupropion merlene 2018 Table ed XL - 150 MG [facility] Hydrochlori XL - 12:00: t ORAL Tablet , Hospital de 150 MG 150 MG 00 AM Extended Extended ORAL EDT Release, 24 Release Tablet HR Oral Tablet , [Wellbutrin Extend ] ed Releas e, 24 HR 24 HR buPROP ORAL complet buPROPion Sa int Bupropion ion 2018 Table ed HCl XL - 450 [facility] Hydrochlori HCl XL 12:00: t MG ORAL H ospital de 450 MG - 450 00 AM Tablet, Extended MG EDT Extended Release ORAL Release, 24 Oral Tablet Tablet HR , Extend ed Releas e, 24 HR benztropine Benztr ORAL complet Benztr opine [facility] mesylate 1 opine 2018 Table ed Mesylate - 1 [facility] MG Oral Mesyla 12:00: t MG ORAL Hospi alia Tablet te - 1 00 AM Tablet MG EDT ORAL Tablet Clozapine cloZAP ORAL complet cloZAPin e - [facility] 100 MG Oral ine - 2018 Table ed 100 MG ORAL [facility] Tablet 100 MG 12:00: t Tablet Hospita l ORAL 00 AM Tablet EDT POLYETHYLEN MiraLA ORAL complet MiraLA X - 17 [facility] E GLYCOL X - 17 2018 Unit ed GM/1 Dose [facility] 3350 142 GM/1 12:00: ORAL Powder [facility] spital MG/ML Oral Dose 00 AM for Solution Solution ORAL EDT Powder for Soluti on 24 HR [facility] ORAL complet Wellbutrin S aint Bupropion merlene 2018 Table ed XL - 150 MG [facility] Hydrochlori XL - 12:00: t ORAL Tablet , Hospital de 150 MG 150 MG 00 AM Extended Extended ORAL EDT Release, 24 Release Tablet HR Oral Tablet , [Wellbutrin Extend ] ed Releas e, 24 HR Trazodone traZOD ORAL complet traZODon e [facility] Hydrochlori one 2018 Table ed hydrochlorid [facility] de 150 MG hydroc 12:00: t e - 150 MG Hospital Oral Tablet hlorid 00 AM ORAL Table t e - EDT 150 MG ORAL Tablet Risperidone risper ORAL complet risper iDONE [facility] 2 MG Oral iDONE 2018 Table ed - 2 MG ORAL [facility] Tablet - 2 MG 12:00: t Tablet Hospita l ORAL 00 AM Tablet EDT Trazodone traZOD ORAL complet traZODon e [facility] Hydrochlori one 2018 Table ed hydrochlorid [facility] de 150 MG hydroc 12:00: t e - 150 MG Hospital Oral Tablet hlorid 00 AM ORAL Table t e - EDT 150 MG ORAL Tablet Risperidone risper ORAL complet risper iDONE [facility] 2 MG Oral iDONE 2018 Table ed - 2 MG ORAL [facility] Tablet - 2 MG 12:00: t Tablet Hospita l ORAL 00 AM Tablet EDT 24 HR [facility] ORAL complet Wellbutrin S aint Bupropion merlene 2018 Table ed XL - 300 MG [facility] Hydrochlori XL - 12:00: t ORAL Tablet , Hospital de 300 MG 300 MG 00 AM Extended Extended ORAL EDT Release, 24 Release Tablet HR Oral Tablet , [Wellbutrin Extend ] ed Releas e, 24 HR POLYETHYLEN MiraLA ORAL complet MiraLA X - 17 [facility] E GLYCOL X - 17 2019 Unit ed GM/1 Dose [facility] 3350 142 GM/1 12:00: ORAL Powder [facility] MG/ML Oral Dose 00 AM for Solution Solution ORAL EDT [Miralax] Powder for Soluti on benztropine Benztr ORAL complet Benztr opine [facility] mesylate 1 opine 2018 Table ed Mesylate - 1 [facility] MG Oral Mesyla 12:00: t MG ORAL Hospi alia Tablet te - 1 00 AM Tablet MG EDT ORAL Tablet Trazodone traZOD ORAL complet traZODon e [facility] Hydrochlori one 2018 Table ed hydrochlorid [facility] de 150 MG hydroc 12:00: t e - 150 MG Hospital Oral Tablet hlorid 00 AM ORAL Table t e - EDT 150 MG ORAL Tablet Clozapine cloZAP ORAL complet cloZAPin e - [facility] 100 MG Oral ine - 2018 Table ed 100 MG ORAL [facility] Tablet 100 MG 12:00: t Tablet Hospita l ORAL 00 AM Tablet EDT 24 HR [facility] ORAL complet Wellbutrin S aint Bupropion merlene 2018 Table ed XL - 300 MG [facility] Hydrochlori XL - 12:00: t ORAL Tablet , Hospital de 300 MG 300 MG 00 AM Extended Extended ORAL EDT Release, 24 Release Tablet HR Oral Tablet , [Wellbutrin Extend ] ed Releas e, 24 HR benztropine Benztr ORAL complet Benztr opine [facility] mesylate 1 opine 2018 Table ed Mesylate - 1 [facility] MG Oral Mesyla 12:00: t MG ORAL Hospi alia Tablet te - 1 00 AM Tablet MG EDT ORAL Tablet Risperidone risper ORAL complet risper iDONE [facility] 2 MG Oral iDONE 2018 Table ed - 2 MG ORAL [facility] Tablet - 2 MG 12:00: t Tablet Hospita l ORAL 00 AM Tablet EDT POLYETHYLEN MiraLA ORAL complet MiraLA X - 17 [facility] E GLYCOL X - 17 2018 Unit ed GM/1 Dose [facility] 3350 142 GM/1 12:00: ORAL Powder [facility] MG/ML Oral Dose 00 AM for Solution Solution ORAL EDT [Miralax] Powder for Soluti on Clozapine clozap 11/13/ complet take 1 i n NEXTGEN 100 MG Oral ine 2018 ed the morning, ([facility] Tablet 100 mg 12:00: 1 at noon , [facility] clozapine tablet 00 AM and 6 at Med ical 100 mg EDT night Center) tablet given by Dr andrade Clotrimazole 10 Lotrimin AF 11/13/2018 TOPICAL complete d clotrimazole NEXTGEN MG/ML Topical (clotrimazole) 12:00:00 AM 10 MG/ML ([facility] Cream 1 % topical EDT Topical Crea m [facility] [Lotrimin] cream [Lotrimin] Me dical Lotrimin AF [place]) (clotrimazole) 1 % topical cream POLYETHYLENE Miralax 17 gram 11/13/2018 1 ORAL active polyethylene NEXTGEN [facility] 3350 142 oral powder 12:00:00 AM . glycol 3350 ([facility] MG/ML Oral packet EDT 0 [address]209 MG [facility] Solution 0 Powder for Medic al [Miralax] { Oral Solution C enter) Miralax 17 gram p [Miralax] oral powder a packet c k e t } benztropine Benztropine 09/18/2018 1 ORAL completed Benztropine [facility] mesylate 1 MG Mesylate - 1 MG 12:00:00 AM T Mesylate - 1 [facility] Oral Tablet ORAL Tablet EST a MG ORA L Hospital b Tablet l e t Docusate Sodium Colace - 50 MG 09/18/2018 2 ORAL complete d Colace - 50 [facility] 50 MG Oral ORAL Capsule, 12:00:00 AM C MG ORAL [facility] Capsule Liquid Filled EST a Capsule, Hospital [Colace] p Liquid Filled s u l e Risperidone 2 risperiDONE - 2 09/18/2018 1 ORAL completed risperiDONE - [facility] MG Oral Tablet MG ORAL Tablet 12:00:00 AM T 2 MG ORAL [facility] EST a Tablet Hospital b l e t Clozapine 100 cloZAPine - 100 09/18/2018 6 ORAL completed cloZAPine - [facility] MG Oral Tablet MG ORAL Tablet 12:00:00 AM T 100 MG ORAL [facility] EST a Tablet Hospital b l e t POLYETHYLENE MiraLAX - 17 09/18/2018 1 ORAL completed MiraLAX - 17 [facility] GLYCOL 3350 142 GM/1 Dose ORAL 12:00:00 AM U GM/1 Dose [facility] MG/ML Oral Powder for EST n ORAL Pow fredi Hospital Solution Solution i for Solution [Miralax] t 24 HR Bupropion Wellbutrin XL - 09/18/2018 1 ORAL complet ed Wellbutrin XL [facility] Hydrochloride 300 MG ORAL 12:00:00 AM T - 300 MG ORAL [facility] 300 MG Extended Tablet, EST a Tablet , Hospital Release Oral Extended b Extended Tablet Release, 24 HR l Release, 24 [Wellbutrin] e HR t Trazodone traZODone 09/18/2018 2 ORAL completed traZODone [facility] Hydrochloride hydrochloride - 12:00:00 AM T hydrochloride [facility] 150 MG Oral 150 MG ORAL EST a - 150 MG ORAL Hospital Tablet Tablet b Tablet l e t Docusate Sodium Colace - 50 MG 08/21/2018 2 ORAL complete d Colace - 50 [facility] 50 MG Oral ORAL Capsule, 12:00:00 AM C MG ORAL [facility] Capsule Liquid Filled EST a Capsule, Hospital [Colace] p Liquid Filled s u l e 24 HR Nicotine Nicotine - 7 08/21/2018 1 TRANSDER complet ed Nicotine - 7 [facility] 0.292 MG/HR MG/24 HR 12:00:00 AM P MAL MG /24 HR [facility] Transdermal TRANSDERMAL EST a TRANSD ERMAL Hospital Patch Patch, Extended t Patch, Release c Extended h Release Clozapine 100 clozapine 100 08/14/2018 completed take 1 in the NEXTGEN MG Oral Tablet mg tablet 12:00:00 AM morning, 1 at ([facility] clozapine 100 EST noon , and 6 [facility] mg tablet at night Medica l Center) given by Dr andrade Metoprolol metoprolol 08/14/2018 completed take 1 tablet NEXTGEN Tartrate 25 MG tartrate 25 mg 12:00:00 AM by mouth once ([facility] Oral Tablet tablet EST a day with [facility] metoprolol food for Medic al tartrate 25 mg tachycardi a. [place]) tablet May cause drowsiness or dizziness. take at night Trazodone trazodone 150 08/14/2018 completed take 2 tablet NEXTGEN Hydrochloride mg tablet 12:00:00 AM by oral route ([facility] 150 MG Oral EST every day at [facility] Tablet night Medical trazodone 150 [place] ) mg tablet 24 HR Wellbutrin XL 08/14/2018 1.00 ORAL completed 24 HR NEXTGEN Bupropion 300 mg 24 hr 12:00:00 AM {tab bupropion ([facility] Hydrochloride tablet, EST let} hydrochl oride [facility] 300 MG extended 300 MG Medical Extended release Extended Cent er) Release Oral Release Oral Tablet Tablet [Wellbutrin] [Wellbutrin] Wellbutrin XL 300 mg 24 hr tablet, extended release benztropine benztropine 1 08/14/2018 1 ORAL completed take 1 tablet NEXTGEN mesylate 1 MG mg tablet 12:00:00 AM {tab by oral route ([facility] Oral Tablet EST let} 2 times every [facility] benztropine 1 day Medica l mg tablet [place]) Levetiracetam Keppra 750 mg 08/14/2018 1.00 ORAL active levetiracetam NEXTGEN 750 MG Oral tablet 12:00:00 AM {tab 750 MG Oral ([facility] Tablet EST let} Tablet [facility] [Keppra] [Keppra] Medical Keppra 750 mg [place] ) tablet 24 HR Nicotine Nicotine - 21 06/26/2018 1 JOY completed Nicotine - 21 [facility] 0.875 MG/HR MG/24 HR 12:00:00 AM Patc SDER MG /24 HR [facility] Transdermal TRANSDERMAL EST h MAL [facility] Patch Patch, Patch, Extended Extended Release Release benztropine Benztropine 06/26/2018 1 ORAL completed Benztropine mesylate 1 MG Mesylate - 1 12:00:00 AM Tabl Mesylate - 1 [facility] Oral Tablet MG ORAL Tablet EST et MG ORAL Tablet Hospital Risperidone 2 risperiDONE - 06/26/2018 1 ORAL completed risperiDONE - [facility] MG Oral Tablet 2 MG ORAL 12:00:00 AM Tabl 2 MG ORAL [facility] Tablet EST et Tablet Hospital 24 HR Wellbutrin XL 06/26/2018 1 ORAL completed Wellbutrin XL [facility] Bupropion - 300 MG ORAL 12:00:00 AM Tabl - 300 MG ORAL [facility] Hydrochloride Tablet, EST et Tablet, Hospital 300 MG Extended Extended Extended Release, 24 HR Releas e, 24 HR Release Oral Tablet [Wellbutrin] Trazodone traZODone 06/26/2018 2 ORAL completed traZODone [facility] Hydrochloride hydrochloride 12:00:00 AM Tabl hydrochloride [facility] 150 MG Oral - 150 MG ORAL EST et - 15 0 MG ORAL Hospital Tablet Tablet Tablet Trazodone traZODone 05/19/2018 2 ORAL completed traZODone [facility] Hydrochloride hydrochloride 12:00:00 AM Tabl hydrochloride [facility] 150 MG Oral - 150 MG ORAL EST et - 15 0 MG ORAL Hospital Tablet Tablet Tablet Risperidone 2 risperiDONE - 05/19/2018 1 ORAL completed risperiDONE - [facility] MG Oral Tablet 2 MG ORAL 12:00:00 AM Tabl 2 MG ORAL [facility] Tablet EST et Tablet Hospital benztropine Benztropine 05/19/2018 1 ORAL completed Benztropine [facility] mesylate 1 MG Mesylate - 1 12:00:00 AM Tabl Mesylate - 1 [facility] Oral Tablet MG ORAL Tablet EST et MG ORAL Tablet Hospital 24 HR Wellbutrin XL 05/19/2018 1 ORAL completed Wellbutrin XL [facility] Bupropion - 300 MG ORAL 12:00:00 AM Tabl - 300 MG ORAL [facility] Hydrochloride Tablet, EST et Tablet, Hospital 300 MG Extended Extended Extended Release, 24 HR Releas e, 24 HR Release Oral Tablet [Wellbutrin] 24 HR Nicotine Nicotine - 21 05/19/2018 1 JOY completed Nicotine - 21 [facility] 0.875 MG/HR MG/24 HR 12:00:00 AM Patc SDER MG /24 HR [facility] Transdermal TRANSDERMAL EST h [facility], [place] Patch Patch, Patch, Extended Extended Release Release benztropine Benztropine 05/15/2018 1 ORAL completed Benztropine [facility] mesylate 0.5 Mesylate - 0.5 12:00:00 AM Tabl Mesylate - 0.5 [facility] MG Oral Tablet MG ORAL Tablet EDT et MG ORAL Tablet Hospital 24 HR Nicotine Nicotine - 21 05/15/2018 1 JOY completed Nicotine - 21 [facility] 0.875 MG/HR MG/24 HR 12:00:00 AM Patc SDER MG /24 HR [facility] Transdermal TRANSDERMAL EDT h [facility], [place] Patch Patch, Patch, Extended Extended Release Release benztropine Benztropine 04/17/2018 1 ORAL completed Benztropine [facility] mesylate 0.5 Mesylate - 0.5 12:00:00 AM Tabl Mesylate - 0.5 [facility] MG Oral Tablet MG ORAL Tablet EDT et MG ORAL Tablet Hospital 24 HR Nicotine Nicotine - 21 04/17/2018 1 JOY completed Nicotine - 21 [facility] 0.875 MG/HR MG/24 HR 12:00:00 AM Patc SDER MG /24 HR [facility] Transdermal TRANSDERMAL EDT h [facility], [place] Patch Patch, Patch, Extended Extended Release Release Clozapine 100 cloZAPine - 03/19/2018 6 ORAL completed cloZAPine - [facility] MG Oral Tablet 100 MG ORAL 12:00:00 AM Tabl 100 MG ORAL [facility] Tablet EDT et Tablet Hospital Trazodone traZODone 03/19/2018 2 ORAL completed traZODone [facility] Hydrochloride hydrochloride 12:00:00 AM Tabl hydrochloride [facility] 150 MG Oral - 150 MG ORAL EDT et - 15 0 MG ORAL Hospital Tablet Tablet Tablet Risperidone 2 risperiDONE - 03/19/2018 1 ORAL completed risperiDONE - [facility] MG Oral Tablet 2 MG ORAL 12:00:00 AM Tabl 2 MG ORAL [facility] Tablet EDT et Tablet Hospital 24 HR Nicotine Nicotine - 21 03/19/2018 1 JOY completed Nicotine - 21 [facility] 0.875 MG/HR MG/24 HR 12:00:00 AM Patc SDER MG /24 HR [facility] Transdermal TRANSDERMAL EDT h [facility], [place] Patch Patch, Patch, Extended Extended Release Release 24 HR Wellbutrin XL 03/19/2018 1 ORAL completed Wellbutrin XL [facility] Bupropion - 300 MG ORAL 12:00:00 AM Tabl - 300 MG ORAL [facility] Hydrochloride Tablet, EDT et Tablet, Hospital 300 MG Extended Extended Extended Release, 24 HR Releas e, 24 HR Release Oral Tablet [Wellbutrin] 24 HR Nicotine Nicotine - 21 03/03/2018 1 JOY completed Nicotine - 21 [facility] 0.875 MG/HR MG/24 HR 12:00:00 AM Patc SDER MG /24 HR [facility] Transdermal TRANSDERMAL EDT h [facility], [place] Patch Patch, Patch, Extended Extended Release Release 24 HR Nicotine Nicotine - 21 02/05/2018 1 JOY completed Nicotine - 21 [facility] 0.875 MG/HR MG/24 HR 12:00:00 AM Patc SDER MG /24 HR [facility] Transdermal TRANSDERMAL EDT h [facility], [place] Patch Patch, Patch, Extended Extended Release Release 24 HR Nicotine Nicotine - 21 01/07/2018 1 JOY completed Nicotine - 21 [facility] 0.875 MG/HR MG/24 HR 12:00:00 AM Patc SDER MG /24 HR [facility] Transdermal TRANSDERMAL EDT h [facility], [place] Patch Patch, Patch, Extended Extended Release Release Trazodone traZODone 01/06/2018 2 ORAL completed traZODone [facility] Hydrochloride hydrochloride 12:00:00 AM Tabl hydrochloride [facility] 150 MG Oral - 150 MG ORAL EDT et - 15 0 MG ORAL Hospital Tablet Tablet Tablet 24 HR Nicotine Nicotine - 21 12/19/2017 1 JOY completed Nicotine - 21 [facility] 0.875 MG/HR MG/24 HR 12:00:00 AM Patc SDER MG /24 HR [facility] Transdermal TRANSDERMAL EDT h [facility], [place] Patch Patch, Patch, Extended Extended Release Release Risperidone 2 risperiDONE - 12/19/2017 1 ORAL completed risperiDONE - [facility] MG Oral Tablet 2 MG ORAL 12:00:00 AM Tabl 2 MG ORAL [facility] Tablet EDT et Tablet Hospital 24 HR Wellbutrin XL 12/19/2017 1 ORAL completed Wellbutrin XL [facility] Bupropion - 300 MG ORAL 12:00:00 AM Tabl - 300 MG ORAL [facility] Hydrochloride Tablet, EDT et Tablet, Hospital 300 MG Extended Extended Extended Release, 24 HR Releas e, 24 HR Release Oral Tablet [Wellbutrin] 24 HR Nicotine Nicotine - 21 12/11/2017 1 JOY completed Nicotine - 21 [facility] 0.875 MG/HR MG/24 HR 12:00:00 AM Patc SDER MG /24 HR [facility] Transdermal TRANSDERMAL EDT h [facility], [place] Patch Patch, Patch, Extended Extended Release Release Risperidone 2 Risperdal 2 mg 11/13/2017 1.00 ORAL completed risperidone 2 NEXTGEN MG Oral Tablet tablet 12:00:00 AM {tab M G Oral Tablet ([facility] [Risperdal] EDT let} [Risperdal] J osephs Risperdal 2 mg Medic al tablet Center) 24 HR Nicotine Nicotine - 21 11/11/2017 1 JOY completed Nicotine - 21 [facility] 0.875 MG/HR MG/24 HR 12:00:00 AM Patc SDER MG /24 HR [facility] Transdermal TRANSDERMAL EDT h [facility], [place] Patch Patch, Patch, Extended Extended Release Release 24 HR Wellbutrin XL 11/11/2017 1 ORAL completed Wellbutrin XL [facility] Bupropion - 300 MG ORAL 12:00:00 AM Tabl - 300 MG ORAL [facility] Hydrochloride Tablet, EDT et Tablet, Hospital 300 MG Extended Extended Extended Release, 24 HR Releas e, 24 HR Release Oral Tablet [Wellbutrin] Risperidone 2 risperiDONE - 11/11/2017 1 ORAL completed risperiDONE - [facility] MG Oral Tablet 2 MG ORAL 12:00:00 AM Tabl 2 MG ORAL [facility] Tablet EDT et Tablet [facility] Trazodone traZODone 11/11/2017 1 ORAL completed traZODone [facility] Hydrochloride hydrochloride 12:00:00 AM Tabl hydrochloride [facility] 300 MG Oral - 300 MG ORAL EDT et - 30 0 MG ORAL Hospital Tablet Tablet Tablet Clozapine 100 cloZAPine - 09/02/2017 6 ORAL completed cloZAPine - [facility] MG Oral Tablet 100 MG ORAL 12:00:00 AM Tabl 100 MG ORAL [facility] Tablet EST et Tablet Hospital Risperidone 2 risperiDONE - 09/02/2017 1 ORAL completed risperiDONE - [facility] MG Oral Tablet 2 MG ORAL 12:00:00 AM Tabl 2 MG ORAL [facility] Tablet EST et Tablet Hospital 24 HR Wellbutrin XL 09/02/2017 1 ORAL completed Wellbutrin XL [facility] Bupropion - 300 MG ORAL 12:00:00 AM Tabl - 300 MG ORAL [facility] Hydrochloride Tablet, EST et Tablet, Hospital 300 MG Extended Extended Extended Release, 24 HR Releas e, 24 HR Release Oral Tablet [Wellbutrin] Trazodone traZODone 09/02/2017 1 ORAL completed traZODone [facility] Hydrochloride hydrochloride 12:00:00 AM Tabl hydrochloride [facility] 300 MG Oral - 300 MG ORAL EST et - 30 0 MG ORAL Hospital Tablet Tablet Tablet Risperidone 2 risperiDONE - 07/03/2017 1 ORAL completed risperiDONE - [facility] MG Oral Tablet 2 MG ORAL 12:00:00 AM Tabl 2 MG ORAL [facility] ORAL completed traZODone [facility] Hydrochloride hydrochloride 12:00:00 AM Tabl hydrochloride [facility] 300 MG Oral - 300 MG ORAL EST et - 30 0 MG ORAL Hospital Tablet Tablet Tablet 24 HR Wellbutrin XL 07/03/2017 1 ORAL completed Wellbutrin XL [facility] Bupropion - 300 MG ORAL 12:00:00 AM Tabl - 300 MG ORAL [facility] Hydrochloride Tablet, EST et Tablet, Hospital 300 MG Extended Extended Extended Release, 24 HR Releas e, 24 HR Release Oral Tablet [Wellbutrin] 24 HR Wellbutrin XL 04/10/2017 1 ORAL completed Wellbutrin XL [facility] Bupropion - 300 MG ORAL 12:00:00 AM Tabl - 300 MG ORAL [facility] Hydrochloride Tablet, EDT et Tablet, Hospital 300 MG Extended Extended Extended Release, 24 HR Releas e, 24 HR Release Oral Tablet [Wellbutrin] Risperidone 2 risperiDONE - 04/10/2017 1 ORAL completed risperiDONE - [facility] MG Oral Tablet 2 MG ORAL 12:00:00 AM Tabl 2 MG ORAL [facility] Tablet EDT et Tablet [facility] Clozapine 100 cloZAPine - 04/10/2017 6 ORAL completed cloZAPine - [facility] MG Oral Tablet 100 MG ORAL 12:00:00 AM Tabl 100 MG ORAL [facility]2017 1 ORAL completed traZODone [facility] Hydrochloride hydrochloride 12:00:00 AM Tabl hydrochloride [facility] 300 MG Oral - 300 MG ORAL EDT et - 30 0 MG ORAL Hospital Tablet Tablet Tablet Metoprolol metoprolol 04/13/2016 active take 1 /2 NEXTGEN Tartrate 25 MG tartrate 25 mg 12:00:00 AM tablet by ([facility] Oral Tablet tablet EDT mouth twice a [facility] metoprolol day with food Medical tartrate 25 mg for Cente r) tablet tachycardia. May cause drowsiness or dizziness. Levetiracetam Keppra 1,000 12/07/2015 1.00 ORAL active Levetiracetam NEXTGEN 1000 MG Oral mg tablet 12:00:00 AM {tbl 1000 MG Oral ([facility] Tablet EDT } Tablet [facility] [Keppra] [Keppra] Medical Keppra 1,000 Center) mg tablet given by neurologsit- Dr Pao Tavarezzoalfonso trazodone 11/29/2015 1 {tbl} ORAL completed take 1 NEXTGEN Hydrochloride 100 mg 12:00:00 AM ta blet ([facility] 100 MG Oral tablet EDT by oral Bryce ephs Tablet route Medical trazodone 100 every Cente r) mg tablet day after meals at bedtime, dr rick Esomeprazole 40 Nexium 40 mg 11/29/2015 1.00 ORAL active Esomeprazole NEXTGEN MG Delayed capsule,delayed 12:00:00 AM {capsule} 40 MG Delayed ([facility] Release Oral release EDT Release O ral Shirley Capsule [Nexium] Capsule Medical Nexium 40 mg [Nexium] Cristel ter) capsule,delayed release 12 HR Bupropion Wellbutrin SR 11/29/2015 1 {tbl} ORAL active 12 HR NEXTGEN Hydrochloride 150 mg 12:00:00 AM Bu propion (Saint 150 MG Extended tablet,sustained EDT Hydrochloride Shirley Release Oral -release 150 MG M edical Tablet Extended [place]) [Wellbutrin] Release Oral Wellbutrin SR Tablet 150 mg [Wellbutrin] tablet,sustained -release in am, given by Roderick hitchcock Sucralfate Carafate 100 11/29/2015 10.00 ORAL active Sucralfate NEXTGEN 100 MG/ML mg/mL oral 12:00:00 AM mL 10 0 MG/ML (Saint Oral suspension EDT Oral Shirley Suspension Suspension Med ical [Carafate] [Carafate] Cristel ter) Carafate 100 mg/mL oral suspension Clozapine clozapine 11/29/2015 2 {tbl} ORAL active take 2 NEXTGEN 100 MG Oral 100 mg 12:00:00 AM tabl et by ([facility] Tablet tablet EDT oral route Ronnie hs clozapine every day Medic al 100 mg [place]) tablet given by Dr andrade Clozapine 200 clozapine 200 11/29/2015 active take 2 NEXTGEN MG Oral Tablet mg tablet 12:00:00 AM tablet by (Saint clozapine 200 EDT oral route Shirley mg tablet at bedtime [facility]) by dr rick Insurance Providers Payer name Policy type Policy ID Covered Covered democrat's Policy P ned / Coverage democrat ID relationship to [place] [employer] ormation type [facility] [id number] SP [id number] CARE P HEALTH [id number] SP [id number] CARE MVP/HHP O [id number] 01 [id number] 000 O MVP/HHP [id number] self [id number] MVP MEDICAID [id number] SP [id number] O [facility] [id number] SP [id number] Options MVP SELF PAY 00 Self 00 MEDICAID INP [id number] Self [id number] P PSYCH [facility] MVP [id number] Self [id number] [facility]MON[place] [id number] SP [id number] 000 HEALTH-MVP MVP MEDICAID [id number] SP [id number] O [facility] [id number] SP [id number] CARE [facility] MVP [id number] Self [id number] 000 HARMONIOUS HEALTHCARE SELF PAY 0 Self 0 MEDICAID OP [id number] Self [id number] [facility] MVP [id number] Self [id number] HARMONIOUS [facility] [id number] self [id number] MVP/HHP O [id number] 01 [id number] 000 MVP/HHP O [id number] 01 [id number] Problems, Conditions, and Diagnoses Code Display Name Description Problem Effective Data Type Dates Source(s) 21091113 Alcohol dependence Alcohol dependence Complaint 6 Saint (disorder) 12:00:00 [facility] [id number] Depressive disorder Depressive disorder Complaint 016 Saint (disorder) 12:00:00 [facility] [id number] Schizoaffective Schizoaffective Complaint 01/17/2016 Oskar t disorder (disorder) disorder 12:00:00 [facility] [id number] Alcohol dependence Alcohol dependence Complaint 6 [facility] (disorder) 12:00:00 PM [facility] [id number] Depressive disorder Depressive disorder Complaint 016 [facility] (disorder) 12:00:00 [facility] [id number] Schizoaffective Schizoaffective Complaint 01/17/2016 Oskar t disorder (disorder) disorder 12:00:00 [facility] [id number] Alcohol dependence Alcohol dependence Complaint 6 [facility] (disorder) 12:00:00 [facility] [id number] Depressive disorder Depressive disorder Complaint 016 [facility] (disorder) 12:00:00 PM [facility] [id number] Schizoaffective Schizoaffective Complaint 01/17/2016 Oskar t disorder (disorder) disorder 12:00:00 PM [facility] [id number] Alcohol dependence Alcohol dependence Complaint 6 [facility] (disorder) 12:00:00 PM [facility] [id number] Depressive disorder Depressive disorder Complaint 016 [facility] (disorder) 12:00:00 PM [facility] [id number] Schizoaffective Schizoaffective Complaint 01/17/2016 Oskar t disorder (disorder) disorder 12:00:00 PM [facility] [id number] Alcohol dependence Alcohol dependence Complaint 6 [facility] (disorder) 12:00:00 PM [facility] [id number] Depressive disorder Depressive disorder Complaint 016 [facility] (disorder) 12:00:00 PM [facility] [id number] Schizoaffective Schizoaffective Complaint 01/17/2016 Oskar t disorder (disorder) disorder 12:00:00 PM [facility] [id number] Recurrent major Recurrent major Complaint 07/15/2001 Oskra t depressive episodes, depressive episodes, 12:00 :00 PM [facility], with severe, with [facility] Hospital psychosis (disorder) psychosis [id number] Schizoaffective Schizoaffective Complaint 07/15/2001 Oskar t disorder, depressive disorder, depressive 12:00 :00 PM [facility] type (disorder) type [facility] [id number] Recurrent major Recurrent major Complaint 07/15/2001 Oskar t depressive episodes, depressive episodes, 12:00 :00 PM [facility], with severe, with [facility] Hospital psychosis (disorder) psychosis [id number] Schizoaffective Schizoaffective Complaint 07/15/2001 Oskar t disorder, depressive disorder, depressive 12:00 :00 PM [facility] type (disorder) type [facility] [id number] Recurrent major Recurrent major Complaint 07/15/2001 Oskar t depressive episodes, depressive episodes, 12:00 :00 PM [facility], with severe, with [facility] Hospital psychosis (disorder) psychosis [id number] Schizoaffective Schizoaffective Complaint 07/15/2001 Oskar t disorder, depressive disorder, depressive 12:00 :00 PM [facility]order[facility] type [facility] [id number] Recurrent major Recurrent major Complaint 07/15/2001 Oskar t depressive episodes, depressive episodes, 12:00 :00 PM [facility], with severe, with [facility] psychosis (disorder) psychosis [id number] Schizoaffective Schizoaffective Complaint 07/15/2001 Oskar t disorder, depressive disorder, depressive 12:00 :00 PM [facility] type (disorder) type [facility] [id number] Recurrent major Recurrent major Complaint 07/15/2001 Oskar t depressive episodes, depressive episodes, 12:00 :00 PM [facility], with severe, with [facility] psychosis (disorder) psychosis [id number] Schizoaffective Schizoaffective Complaint 07/15/2001 Oskar t disorder, depressive disorder, depressive 12:00 :00 PM [facility] type (disorder) [facility] [id number] Phencyclidine abuse PCP abuse Complaint 07/15/1999 [facility] (disorder) 12:00:00 PM [facility] [id number] Phencyclidine abuse PCP abuse Complaint 07/15/1999 [facility] (disorder) 12:00:00 PM [facility] [id number] Phencyclidine abuse PCP abuse Complaint 07/15/1999 [facility] (disorder) 12:00:00 PM [facility] [id number] Phencyclidine abuse PCP abuse Complaint 07/15/1999 [facility] (disorder) 12:00:00 PM [facility] [id number] Phencyclidine abuse PCP abuse Complaint 07/15/1999 [facility] (disorder) 12:00:00 PM [facility] D64.9 Anemia, unspecified ANEMIA, UNSPECIFIED Diagnosis [address] [place] [address] 11:47:00 AM Medical EDT Center Z00.00 Encounter for ENCNTR FOR GENERAL Diagnosis 03/15/2020 [facility] general adult ADULT MEDICAL EXAM 12:19:00 PM Me dical medical examination W/O ABNORMAL EDT Cristel ter without abnormal FINDINGS findings 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, HALLUCINOGEN ABUSE, Diagnosis [address] [place] [address] uncomplicated UNCOMPLICATED 07:01:00 AM Medical EDT Center F10.20 Alcohol dependence, ALCOHOL DEPENDENCE, Diagnosis [address] [place] [address] uncomplicated UNCOMPLICATED 07:01:00 AM Medical EDT Center F33.3 Major depressive MAJOR DEPRESSV Diagnosis 03/09/2020 Oskar Watson disorder, recurrent, DISORDER, RECURRENT, 07:01 :00 AM Medical severe with SEVERE W PSYCH EDT Center psychotic symptoms SYMPTOMS F25.1 Schizoaffective SCHIZOAFFECTIVE Diagnosis 03/09/2020 Oskar Watson disorder, depressive DISORDER, DEPRESSIVE 07:01 :00 AM Medical type TYPE EDT Center R56.9 Unspecified UNSPECIFIED Diagnosis 09/07/2019 [place] convulsions CONVULSIONS 01:27:00 PM Critical access hospital EST Care [facility] Z23 Encounter for ENCOUNTER FOR Diagnosis 06/18/2019 [facility] immunization IMMUNIZATION 10:31:00 AM Medical EST Center F20.9 Schizophrenia, SCHIZOPHRENIA, Diagnosis 04/30/2019 [place] unspecified UNSPECIFIED 08:46:00 AM Critical access hospital EDT [facility] F41.8 Other specified OTHER SPECIFIED Diagnosis 04/30/2019 [place] anxiety disorders ANXIETY DISORDERS 08:46:00 AM [facility] EDT Care [facility] K22.8 Other specified OTHER SPECIFIED Diagnosis 04/30/2019 [place] diseases of DISEASES OF 08:46:00 AM Critical access hospital esophagus ESOPHAGUS EDT Care [facility] K44.9 Diaphragmatic hernia DIAPHRAGMATIC HERNIA Diagnosis 04/30 [place] without obstruction WITHOUT OBSTRUCTION 08:46:0 0 AM [facility] or gangrene OR GANGRENE EDT Care [facility] R13.10 Dysphagia, DYSPHAGIA, Diagnosis 04/30/2019 [place] unspecified UNSPECIFIED 08:46:00 AM Critical access hospital EDT Care [facility] R94.31 Abnormal ABNORMAL Diagnosis 11/26/2018 [facility] electrocardiogram ELECTROCARDIOGRAM 09:51:00 AM Medical [ECG] [EKG] (ECG) (EKG) EDT Center 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) Diagnosis NEXTGEN ([facility]) Diagnosis NEXTGEN ([facility]) Diagnosis NEXTGEN ([facility]) Surgeries/Procedures Procedure Description Date Indications Data Source(s) OFFICE/OUTPATIENT VISIT, 03/22/2020 NEX TGEN ([facility] EST 12:00:00 AM EDT [facility] jimena - 03/22/2020 Center) 12:00:00 AM EDT Well Visit, Est,18-39years 03/15/2020 N EXTGEN ([facility] 12:00:[address] [facility] 03/15/2020 [place]) 12:00:00 AM EDT ELECTROCARDIOGRAM, 03/15/2020 NEXTGEN ( [facility] COMPLETE 12:00:[address] [facility] 03/15/2020 [place]) 12:00:00 AM EDT Vision Screening - 0 - 21 03/15/2020 NE XTGEN ([facility] y/o 12:00:[address] [facility] 03/15/2020 [place]) 12:00:00 AM EDT PURE TONE HEARING TEST, 03/15/2020 NEXT GEN ([facility] AIR 12:00:[address] [facility] 03/15/2020 [place]) 12:00:00 AM EDT ROUTINE VENIPUNCTURE 03/15/2020 NEXTGEN ([facility] 12:00:[address] [facility] 03/15/2020 [place]) 12:00:00 AM EDT OFFICE/OUTPATIENT VISIT, 06/18/2019 NEX TGEN ([facility] EST 12:00:00 AM [facility] - 06/18/2019 [place]) 12:00:00 AM EST Influenza, Injectable, 3 06/18/2019 NEX TGEN ([facility] Yrs Or Older 12:00:00 AM [facility] - 06/18/2019 [place]) 12:00:00 AM EST Immunization 06/18/2019 NEXTGEN ([facility] Administration 12:00:00 AM [facility]wi - 06/18/2019 [place]) 12:00:00 AM EST HEP B VACCINE, ADULT, IM 06/18/2019 NEX TGEN ([facility] 12:00:00 AM [facility] - 06/18/2019 [place]) 12:00:00 AM EST Immunization 06/18/2019 NEXTGEN ([facility] Administration 12:00:00 AM [facility] dicwi - 06/18/2019 [place]) 12:00:00 AM EST OFFICE/OUTPATIENT VISIT, 01/07/2019 NEX TGEN ([facility] EST 12:00:[address] [facility] 01/07/2019 [place]) 12:00:00 AM EDT HEP B VACCINE, ADULT, IM 01/07/2019 NEX TGEN ([facility] 12:00:00 AM EDT [facility] - 01/07/2019 Center) 12:00:00 AM EDT Immunization 01/07/2019 NEXTGEN ([facility] Administration 12:00:00 AM EDT [facility] dicwi - 01/07/2019 Center) 12:00:00 AM EDT OFFICE/OUTPATIENT VISIT, 11/26/2018 NEX TGEN ([facility] EST 12:00:[address] [facility] 11/26/2018 Center) 12:00:00 AM EDT ELECTROCARDIOGRAM, 11/26/2018 NEXTGEN ( [facility] COMPLETE 12:00:[address] [facility] 11/26/2018 Center) 12:00:00 AM EDT Hep B, Adult, 2 Dose 11/26/2018 NEXTGEN ([facility] 12:00:[address] [facility] 11/26/2018 Center) 12:00:00 AM EDT Immunization 11/26/2018 NEXTGEN ([facility] Administration 12:00:00 AM EDT [facility] - 11/26/2018 Center) 12:00:00 AM EDT Well Visit, Est,18-39years 11/13/2018 N EXTGEN ([facility] 12:00:00 AM EDT [facility] - 11/13/2018 Center) 12:00:00 AM EDT OFFICE/OUTPATIENT VISIT, 08/14/2018 NEX TGEN ([facility] EST 12:00:[address] [facility] 08/14/2018 Center) 12:00:00 AM EST ELECTROCARDIOGRAM, 08/14/2018 NEXTGEN ( [facility] COMPLETE 12:00:[address] [facility] 08/14/2018 Center) 12:00:00 AM EST OFFICE/OUTPATIENT VISIT, 11/18/2017 NEX TGEN ([facility] EST 12:00:00 AM EDT [facility] - 11/18/2017 Center) 12:00:00 AM EDT Well Visit, Est,18-39years 11/13/2017 N EXTGEN ([facility] 12:00:[address] [facility] 11/13/2017 Center) 12:00:00 AM EDT OFFICE/OUTPATIENT VISIT, 12/15/2015 NEX TGEN ([facility] EST 12:00:00 AM EDT [facility] - 12/15/2015 Center) 12:00:00 AM EDT OFFICE/OUTPATIENT VISIT, 12/13/2015 NEX TGEN ([facility] EST 12:00:[address] [facility] 12/13/2015 [place]) 12:00:00 AM EDT OFFICE/OUTPATIENT VISIT, 12/07/2015 NEX TGEN ([facility] EST 12:00:[address] [facility] 12/07/2015 [place]) 12:00:00 AM EDT TB INTRADERMAL TEST 12/07/2015 NEXTGEN ([facility] 12:00:[address] [facility] 12/07/2015 [place]) 12:00:00 AM EDT OFFICE/OUTPATIENT VISIT, 11/29/2015 NEX TGEN ([facility] NEW 12:00:[address] [facility] 11/29/2015 [place]) 12:00:00 AM EDT Results ID Date Data Source [id number] 03/28/2020 08:58:00 AM EDT [facility] Name Value Range Interpretation Description Data Sup porting Code Source(s) Document(s ) SARS [facility] coronavirus 2 RNA This lab was ordered by MINORosalva mchugh [facility] and reported by [facility]. ID Date Data Source [id number] 03/21/2020 09:08:00 AM EDT [facility] Name Value Range Interpretation Description Data Sup porting Code Source(s) Document(s ) SARS [facility] coronavirus 2 RNA This lab was ordered by MINO HUYEN Melara iliana [facility] and reported by [facility]. ID Date Data Source [id number] 03/15/2020 01:12:00 PM EDT [facility] 0 Name Value Range Interpretation Description Data Sup porting Code Source(s) Document(s ) Color of Urine YELLOW <content Saint styleCode="Addis Shirley d">Color, Medical Urine Center </content>YELL OW <content styleCode="Shana lics"> (YELLOW )</content> Ketones NEGATIVE <content Saint [Mass/volume] styleCode="Addis Shirley in Urine by d">Urine Medical Test strip Ketone Center </content>NEGA TIVE MG/DL<content styleCode="Shana lics"> (NEGATIVE MG/DL)</conten t> Glucose NEGATIVE <content Saint [Mass/volume] styleCode="Addis Monroys in Urine by d">Urine Medical Test strip Glucose Center </content>NEGA TIVE MG/DL<content styleCode="Shana lics"> (NEGATIVE MG/DL)</conten t> UNK CLEAR <content Saint styleCode="Addis Shirley d">Urine Medical Clarity Center </content>SARA R <content styleCode="Shana lics"> (CLEAR )</content> Specific 1.015-1.02 <content Saint gravity of 5 styleCode="Addis Monroys Urine by Test d">Urine Medical strip Specific Center [place] </content>1.01 5 <content styleCode="Shana lics"> (1.015-1.025 )</content> UNK NEGATIVE <content Saint styleCode="Addis Shirley d">Urine Medical Bilirubin Center </content>NEGA TIVE <content styleCode="Shana lics"> (NEGATIVE )</content> Urobilinogen 0.2-1.0 <content Saint [Units/volume] styleCode="Addis Shirley in Urine by d">Urine Medical Test strip Urobilinogen Center </content>0.2 MG/DL<content styleCode="Shana lics"> (0.2-1.0 MG/DL)</conten t> Protein NEGATIVE <content Saint [Mass/volume] styleCode="Addis Monroys in Urine by d">Urine Medical Test strip Protein Center </content>NEGA TIVE MG/DL<content styleCode="Shana lics"> (NEGATIVE MG/DL)</conten t> Hemoglobin NEGATIVE <content Saint [Presence] in styleCode="Addis Monroys Urine by Test d">Urine Blood Medical strip </content>NEGA Center TIVE <content styleCode="Shana lics"> (NEGATIVE )</content> pH of Urine by 4.5-8.0 <content Saint Test strip styleCode="Addis Shirley d">Urine pH Medical </content>6.5 Center <content styleCode="Shana lics"> (4.5-8.0 )</content> Leukocyte NEGATIVE <content Saint esterase styleCode="Addis Shirley [Presence] in d">Urine Medical Urine by Test Leukocyte Center strip </content>NEGA TIVE <content styleCode="Shana lics"> (NEGATIVE )</content> Nitrite NEGATIVE <content Saint [Presence] in styleCode="Addis Watson Urine by Test d">Urine Medical strip Nitrite Center </content>NEGA TIVE <content styleCode="Shana lics"> (NEGATIVE )</content> ID Date Data Source Liver 03/15/2020 01:12:00 PM EDT [facility] [id number] Name Value Range Interpretation Description Data Sup porting Code Source(s) Document(s ) Alkaline 38-126 <content [facility] phosphatase styleCode="Bold"> Shirley [Enzymatic Alkaline Medical activity/volume] Phosphatase (ALP) Cente r in Serum or Plasma </content>101 IU/L<content styleCode="Italic s"> (38-126 IU/L)</content> Alanine 7-50 <content [facility] aminotransferase styleCode="Bold"> Ronnie hs [Enzymatic Alanine Medical activity/volume] Aminotransferase Center in Serum or Plasma (ALT) </content>14 IU/L<content styleCode="Italic s"> (7-50 IU/L)</content> Aspartate 17-59 <content [facility] aminotransferase styleCode="Bold"> Ronnie hs [Enzymatic Aspartate Medical activity/volume] Aminotransferase Center in Serum or Plasma (AST) </content>24 IU/L<content styleCode="Italic s"> (17-59 IU/L)</content> Albumin 3.5-5.0 <content Saint [Mass/volume] in styleCode="Bold"> Ronnie hs Serum or Plasma Albumin Medical </content>4.7 Center G/DL<content styleCode="Italic s"> (3.5-5.0 G/DL)</content> Bilirubin.total 0.2-1.3 <content [facility] [Mass/volume] in styleCode="Bold"> Ronnie hs Serum or Plasma Bilirubin Total Medical </content>0.4 Center MG/DL<content styleCode="Italic s"> (0.2-1.3 MG/DL)</content> ID Date Data Source LIPID.[id number] 03/15/2020 01:12:00 PM EDT [facility] Center Name Value Range Interpretation Description Data Sup porting Code Source(s) Document(s ) Triglyceride < 150 <content Saint [Mass/volume] in styleCode="Addis Shirley Serum or Plasma d">Triglycerid Medical es Center </content>105 MG/DL<content styleCode="Shana lics"> (< 150 MG/DL)</conten t> Cholesterol -<200 <content [facility] [Mass/volume] in styleCode="Addis Shirley Serum or Plasma d">Cholesterol Medical </content>166 Center MG/DL<content styleCode="Shana lics"> (-<200 MG/DL)</conten t> UNK < 100 <content Saint styleCode="Addis Shirley d">LDL-Cholest [facility] rosy [place] </content>92 MG/DL<content styleCode="Shana lics"> (< 100 MG/DL)</conten t> UNK > 60 Below low normal <content Saint styleCode="Addis Shirley d">HDL- Medical Cholesterol Center </content>53 MG/DL L<content styleCode="Shana lics"> (> 60 MG/DL)</conten t> ID Date Data Source [id number] 03/15/2020 01:12:00 PM EDT [facility] Center Name Value Range Interpretation Description Data Sup porting Code Source(s) Document(s ) Thyroxine (T4) 0.78-2.1 <content Saint free 9 styleCode="Addis Shirley [Mass/volume] d">T4 Free Medical in Serum or </content>1.34 Center Plasma NG/DL<content styleCode="Shana lics"> (0.78-2.19 NG/DL)</conten t> Thyrotropin 0.465-4. <content Saint [Units/volume] 68 styleCode="Addis Shirley in Serum or d">Thyroid Medical Plasma by Stimulating Center Detection Hormone limit <= 0.05 </content>1.11 mIU/L MIU/L<content styleCode="Shana lics"> (0.465-4.68 MIU/L)</conten t> ID Date Data Source HematologyRou.[id number] 03/15/2020 01:12:00 PM EDT [facility] 0400 Name Value Range Interpretation Description Data Sup porting Code Source(s) Document(s ) Erythrocyte mean 80.0-100 <content [facility] corpuscular .0 styleCode="Bold Shirley volume [Entitic ">Mean Medical volume] by Corpuscular Center Automated count Volume </content>91.6 FL<content styleCode="Ital ics"> (80.0-100.0 FL)</content> Erythrocytes 4.4-5.9 <content Saint [#/volume] in styleCode="Bold Shirley Blood by ">Red Blood Medical Automated count Cell Count Center </content>4.50 MCUMM<content styleCode="Ital ics"> (4.4-5.9 MCUMM)</content > Hemoglobin 13.5-17. Below low normal <content Saint [Mass/volume] in 5 styleCode="Bold Shirley Blood ">Hemoglobin Medical </content>13.1 Center G/DL L<content styleCode="Ital ics"> (13.5-17.5 G/DL)</content> Leukocytes 4.4-11.0 <content Saint [#/volume] in styleCode="Bold Shirley Blood by ">White Blood Medical Automated count Cell Count Center </content>9.25 KCUMM<content styleCode="Ital ics"> (4.4-11.0 KCUMM)</content > Hematocrit 41.0-53. <content Saint [Volume 0 styleCode="Bold Shirley Fraction] of ">Hematocrit Medical Blood by </content>41.2 Center Automated count %<content styleCode="Ital ics"> (41.0-53.0 %)</content> Platelets 130-400 <content Saint [#/volume] in styleCode="Bold Shirley Blood by ">Platelet Medical Automated count Count Center </content>345 KCUMM<content styleCode="Ital ics"> (130-400 KCUMM)</content > Erythrocyte mean 26.0-34. <content [facility] corpuscular 0 styleCode="Bold Shirley hemoglobin ">Mean Medical [Entitic mass] Corposcular Center by Automated Hemoglobin count </content>29.1 PG<content styleCode="Ital ics"> (26.0-34.0 PG)</content> Erythrocyte 11.5-14. <content Saint distribution 5 styleCode="Bold Shirley width [Ratio] by ">Red Cell Medical Automated count Distribution Center Width </content>13.2 %<content styleCode="Ital ics"> (11.5-14.5 %)</content> Erythrocyte mean 32.0-37. Below low normal <content [facility] corpuscular 0 styleCode="Bold Shirley hemoglobin ">Mean Corpus. Medical concentration Hgb Center [Mass/volume] by Concentration Automated count (MCHC) </content>31.8 G/DL L<content styleCode="Ital ics"> (32.0-37.0 G/DL)</content> Platelet mean 8.0-11.0 <content Saint volume [Entitic styleCode="Bold Shirley volume] in Blood ">Mean Platelet Medical by Automated Volume Center count </content>9.4 FL<content styleCode="Ital ics"> (8.0-11.0 FL)</content> UNK 1.6-7.3 <content Saint styleCode="Bold Shirley ">Neutrophil Medical Count Center </content>5.43 KCUMM<content styleCode="Ital ics"> (1.6-7.3 KCUMM)</content > UNK 1.0-4.8 <content Saint styleCode="Bold Shirley ">Lymphocyte Medical Count Center </content>2.43 KCUMM<content styleCode="Ital ics"> (1.0-4.8 KCUMM)</content > Monocytes 3.0-10.0 <content Saint [#/volume] in styleCode="Bold Shirley Blood by ">Monocyte Medical Automated count </content>6.7 Center %<content styleCode="Ital ics"> (3.0-10.0 %)</content> Lymphocytes 24.0-44. <content Saint [#/volume] in 0 styleCode="Bold Shirley Blood by ">Lymphocyte Medical Automated count </content>26.3 Center %<content styleCode="Ital ics"> (24.0-44.0 %)</content> Neutrophils 36-66 <content Saint [#/volume] in styleCode="Bold Shirley Blood by ">Neutrophil Medical Automated count </content>58.7 Center %<content styleCode="Ital ics"> (36-66 %)</content> UNK 0.2-0.9 <content Saint styleCode="Bold Shirley ">Monocyte Medical Count Center </content>0.62 KCUMM<content styleCode="Ital ics"> (0.2-0.9 KCUMM)</content > Basophils 0.0-1.0 Above high <content Saint [#/volume] in normal styleCode="Bold Shirley Blood by ">Basophil Medical Automated count </content>1.2 % Center H<content styleCode="Ital ics"> (0.0-1.0 %)</content> UNK 0.0-0.6 <content Saint styleCode="Bold Shirley ">Eosinophil Medical Count Center </content>0.60 KCUMM<content styleCode="Ital ics"> (0.0-0.6 KCUMM)</content > Eosinophils 0-5.0 Above high <content Saint [#/volume] in normal styleCode="Bold Shirley Blood by ">Eosinophil Medical Automated count </content>6.5 % Center H<content styleCode="Ital ics"> (0-5.0 %)</content> UNK 0.0-0.3 <content [facility] styleCode="Bold Shirley ">Basophil Medical Count Center </content>0.11 KCUMM<content styleCode="Ital ics"> (0.0-0.3 KCUMM)</content > UNK 0.0 <content [facility] styleCode="Bold Shirley ">Nucleated Red Medical Blood Cell Center Count </content>0.00 KCUMM<content styleCode="Ital ics"> (0.0 KCUMM)</content > UNK 0 <content [facility] styleCode="Bold Shirley ">Nucleated Red Medical Blood Cell Center </content>0.0 /100<content styleCode="Ital ics"> (0 /100)</content> UNK 0-0.1 <content [facility] styleCode="Bold Shirley ">Immature Medical Granulocyte Center Count </content>0.06 KCUMM<content styleCode="Ital ics"> (0-0.1 KCUMM)</content > UNK < 1 <content [facility] styleCode="Bold Shirley ">Immature Medical Granulocyte Center Ratio </content>0.6 %<content styleCode="Ital ics"> (< 1 %)</content> ID Date Data Source GFR(Creatinine).[id number] 03/15/2020 01:12:00 PM EDT [facility] 0-0400 Name Value Range Interpretation Code Description Data Petra rce(s) Supporting Document(s ) UNK > 60 <content [facility] styleCode="Bold"> Medical Cent er EGFR </content>100 GFR<content styleCode="Italic s"> (> 60 GFR)</content> ID Date Data Source ChemistrySpecia.[id number] 03/15/2020 01:12:00 PM EDT [facility] 0-0400 Name Value Range Interpretation Description Data Sup porting Code Source(s) Document(s ) Cobalamin 239-931 Above high normal <content (Vitamin B12) styleCode="Addis Shirley [Mass/volume] d">Vitamin B12 Medical in Serum or </content>> Center Plasma 1000 PG/ML H<content styleCode="Shana lics"> (239-931 PG/ML)</conten t> ID Date Data Source CHMROUTINECCDA.[id number] 03/15/2020 01:12:00 PM EDT [facility] -0400 Name Value Range Interpretation Description Data Sup porting Code Source(s) Document(s ) UNK >= 1.0 <content [facility] styleCode="Bold Medical ">AG Ratio Center </content>1.8 <content styleCode="Ital ics"> (>= 1.0 )</content> UNK 2.3-3.5 <content [facility] styleCode="Bold Medical ">Globulin Center </content>2.6 G/DL<content styleCode="Ital ics"> (2.3-3.5 G/DL)</content> Protein 6.3-8.2 <content [facility] [Mass/volum styleCode="Bold Medical e] in Serum ">Total Protein Center or Plasma </content>7.3 G/DL<content styleCode="Ital ics"> (6.3-8.2 G/DL)</content> ID Date Data Source [facility].[id number] 03/15/2020 01:12:00 PM EDT [facility] Name Value Range Interpretation Description Data Sup porting Code Source(s) Document(s ) Potassium 3.5-5.3 <content [facility] [Moles/volume] in styleCode="Bold"> [facility] Serum or Plasma Potassium Medical </content>4.0 Center MEQ/L<content styleCode="Italic s"> (3.5-5.3 MEQ/L)</content> Sodium 137-145 <content [facility] [Moles/volume] in styleCode="Bold"> [facility] Serum or Plasma Sodium Medical </content>140 Center MEQ/L<content styleCode="Italic s"> (137-145 MEQ/L)</content> UNK 9-20 <content [facility] styleCode="Bold"> Shirley BUN </content>9 Medical MG/DL<content Center styleCode="Italic s"> (9-20 MG/DL)</content> Chloride 98-107 <content [facility] [Moles/volume] in styleCode="Bold"> [facility] Serum or Plasma Chloride Medical </content>104 Center MEQ/L<content styleCode="Italic s"> (98-107 MEQ/L)</content> Carbon dioxide, 22-30 <content [facility] total styleCode="Bold"> Shirley [Moles/volume] in Carbon Dioxide Medical Serum or Plasma </content>26 Center MEQ/L<content styleCode="Italic s"> (22-30 MEQ/L)</content> Calcium 8.4-10. <content [facility] [Mass/volume] in 2 styleCode="Bold"> Ronnie hs Serum or Plasma Calcium Medical </content>9.4 Center MG/DL<content styleCode="Italic s"> (8.4-10.2 MG/DL)</content> Creatinine 0.5-1.3 <content [facility] [Mass/volume] in styleCode="Bold"> Ronnie hs Serum or Plasma Creatinine Medical </content>0.9 Center MG/DL<content styleCode="Italic s"> (0.5-1.3 MG/DL)</content> Glucose 74-106 Above high <content [facility] [Mass/volume] in normal styleCode="Bold"> Ronnie hs Serum or Plasma Glucose Medical </content>108 Center MG/DL H<content styleCode="Italic s"> (74-106 MG/DL)</content> Alanine 7-50 <content [facility] aminotransferase styleCode="Bold"> Ronnie hs [Enzymatic Alanine Medical activity/volume] Aminotransferase Center in Serum or Plasma (ALT) </content>14 IU/L<content styleCode="Italic s"> (7-50 IU/L)</content> Aspartate 17-59 <content [facility] aminotransferase styleCode="Bold"> Ronnie hs [Enzymatic Aspartate Medical activity/volume] Aminotransferase Center in Serum or Plasma (AST) </content>24 IU/L<content styleCode="Italic s"> (17-59 IU/L)</content> Alkaline 38-126 <content [facility] phosphatase styleCode="Bold"> Shirley [Enzymatic Alkaline Medical activity/volume] Phosphatase (ALP) Cente r in Serum or Plasma </content>101 IU/L<content styleCode="Italic s"> (38-126 IU/L)</content> UNK > 60 <content [facility] styleCode="Bold"> [facility] EGFR Medical </content>100 Center GFR<content styleCode="Italic s"> (> 60 GFR)</content> Bilirubin.total 0.2-1.3 <content [facility] [Mass/volume] in styleCode="Bold"> Ronnie hs Serum or Plasma Bilirubin Total Medical </content>0.4 Center MG/DL<content styleCode="Italic s"> (0.2-1.3 MG/DL)</content> Albumin 3.5-5.0 <content [facility] [Mass/volume] in styleCode="Bold"> Ronnie hs Serum or Plasma Albumin Medical </content>4.7 Center G/DL<content styleCode="Italic s"> (3.5-5.0 G/DL)</content> ID Date Data Source [id number] 03/14/2020 09:02:00 AM EDT [facility] Name Value Range Interpretation Description Data Sup porting Code Source(s) Document(s ) SARS [facility] coronavirus 2 RNA This lab was ordered by [facility]O [facility] and reported by [facility]. ID Date Data Source [id number] 03/08/2020 09:07:00 AM EDT [facility] Name Value Range Interpretation Description Data Sup porting Code Source(s) Document(s ) SARS [facility] coronavirus 2 RNA This lab was ordered by [facility] and reported by [facility]. ID Date Data Source [id number] 02/29/2020 10:30:00 AM EDT [facility] Name Value Range Interpretation Description Data Sup porting Code Source(s) Document(s ) SARS [facility] coronavirus 2 RNA This lab was ordered by MINORosalva [facility] and reported by [facility]. ID Date Data Source [id number] 02/25/2020 11:14:00 AM EDT [facility] Name Value Range Interpretation Description Data Sup porting Code Source(s) Document(s ) SARS [facility] coronavirus 2 RNA This lab was ordered by MINORosalva mchugh [facility] and reported by [facility]. ID Date Data Source [id number] 02/22/2020 11:39:00 AM EDT [facility] Name Value Range Interpretation Description Data Sup porting Code Source(s) Document(s ) SARS [facility] coronavirus 2 RNA This lab was ordered by [facility] and reported by [facility]. ID Date Data Source [id number] 02/18/2020 09:43:00 AM EDT [facility] Name Value Range Interpretation Description Data Sup porting Code Source(s) Document(s ) SARS [facility] coronavirus 2 RNA This lab was ordered by MINO [facility]ch[facility] and reported by [facility]. ID Date Data Source [id number] 12/25/2019 12:47:00 PM EDT [facility] Name Value Range Interpretation Code Description Data Petra rce(s) Supporting Document(s ) COV2 [facility] and reported by [facility]. ID Date Data Source [id number] 11/16/2019 10:40:00 AM EDT [facility] Name Value Range Interpretation Code Description Data Petra rce(s) Supporting Document(s ) COV2 [facility] This lab was [facility] and reported by [facility]. ID Date Data Source Urinalysis.[id number] 11/13/2018 11:20:00 AM EDT [facility] 0 Name Value Range Interpretation Description Data Sup porting Code Source(s) Document(s ) UNK CLEAR <content [facility] styleCode="Addis Shirley d">Urine Medical Clarity Center </content>SARA R <content styleCode="Shana lics"> (CLEAR )</content> Color of Urine YELLOW <content [facility] styleCode="Addis Shirley d">Color, Medical Urine Center </content>YELL OW <content styleCode="Shana lics"> (YELLOW )</content> Glucose NEGATIVE <content [facility] [Mass/volume] styleCode="Addis Shirley in Urine by d">Urine Medical Test strip Glucose Center </content>NEGA TIVE MG/DL<content styleCode="Shana lics"> (NEGATIVE MG/DL)</conten t> Ketones NEGATIVE <content [facility] [Mass/volume] styleCode="Addis Shirley in Urine by d">Urine Medical Test strip Ketone Center </content>NEGA TIVE MG/DL<content styleCode="Shana lics"> (NEGATIVE MG/DL)</conten t> Hemoglobin NEGATIVE <content [facility] [Presence] in styleCode="Addis Monroys Urine by Test d">Urine Blood Medical strip </content>NEGA Center TIVE <content styleCode="Shana lics"> (NEGATIVE )</content> UNK NEGATIVE <content [facility] styleCode="Addis Shirley d">Urine Medical Bilirubin Center </content>NEGA TIVE <content styleCode="Shana lics"> (NEGATIVE )</content> Specific 1.015-1.02 Below low normal <content [facility] gravity of 5 styleCode="Addis Shirley Urine by Test d">Urine Medical strip Specific Center [place] </content><= 1.005 L<content styleCode="Shana lics"> (1.015-1.025 )</content> pH of Urine by 4.5-8.0 <content [facility] Test strip styleCode="Addis Shirley d">Urine pH Medical </content>7.0 Center <content styleCode="Shana lics"> (4.5-8.0 )</content> Urobilinogen 0.2-1.0 <content [facility] [Units/volume] styleCode="Addis Shirley in Urine by d">Urine Medical Test strip Urobilinogen Center </content>0.2 MG/DL<content styleCode="Shana lics"> (0.2-1.0 MG/DL)</conten t> Protein NEGATIVE <content [facility] [Mass/volume] styleCode="Addis Shirley in Urine by d">Urine Medical Test strip Protein Center </content>NEGA TIVE MG/DL<content styleCode="Shana lics"> (NEGATIVE MG/DL)</conten t> Leukocyte NEGATIVE <content [facility] esterase styleCode="Addis Shirley [Presence] in d">Urine Medical Urine by Test Leukocyte Center strip </content>NEGA TIVE <content styleCode="Shana lics"> (NEGATIVE )</content> Nitrite NEGATIVE <content [facility] [Presence] in styleCode="Addis Shirley Urine by Test d">Urine Medical strip Nitrite Center </content>NEGA TIVE <content styleCode="Shana lics"> (NEGATIVE )</content> ID Date Data Source Liver 11/13/2018 11:20:00 AM EDT [facility] Profile.[id number] Name Value Range Interpretation Description Data Sup porting Code Source(s) Document(s ) Alkaline 38-126 <content [facility] phosphatase styleCode="Bold"> Shirley [Enzymatic Alkaline Medical activity/volume] Phosphatase (ALP) Cente r in Serum or Plasma </content>97 IU/L<content styleCode="Italic s"> (38-126 IU/L)</content> Alanine 7-50 <content [facility] aminotransferase styleCode="Bold"> Ronnie hs [Enzymatic Alanine Medical activity/volume] Aminotransferase Center in Serum or Plasma (ALT) </content>30 IU/L<content styleCode="Italic s"> (7-50 IU/L)</content> Aspartate 17-59 <content [facility] aminotransferase styleCode="Bold"> Ronnie hs [Enzymatic Aspartate Medical activity/volume] Aminotransferase Center in Serum or Plasma (AST) </content>34 IU/L<content styleCode="Italic s"> (17-59 IU/L)</content> Bilirubin.total 0.2-1.3 <content [facility] [Mass/volume] in styleCode="Bold"> Ronnie hs Serum or Plasma Bilirubin Total Medical </content>0.4 Center MG/DL<content styleCode="Italic s"> (0.2-1.3 MG/DL)</content> Albumin 3.5-5.0 <content [facility] [Mass/volume] in styleCode="Bold"> Ronnie hs Serum or Plasma Albumin Medical </content>4.4 Center G/DL<content styleCode="Italic s"> (3.5-5.0 G/DL)</content> ID Date Data Source LIPID.[id number] 11/13/2018 11:20:00 AM EDT [facility] Name Value Range Interpretation Description Data Sup porting Code Source(s) Document(s ) Triglyceride < 150 <content [facility] [Mass/volume] in styleCode="[facility] Serum or Plasma d">Triglycerid [facility] Center </content>57 MG/DL<content styleCode="Shana lics"> (< 150 MG/DL)</conten t> UNK < 100 <content [facility] styleCode="Addis Monroys d">LDL-Cholest [facility] Center </content>94 MG/DL<content styleCode="Shana lics"> (< 100 MG/DL)</conten t> Cholesterol -<200 <content [facility] [Mass/volume] in styleCode="Addis Monroys Serum or Plasma d">Cholesterol Medical </content>166 Center MG/DL<content styleCode="Shana lics"> (-<200 MG/DL)</conten t> UNK > 60 <content [facility] styleCode="Addis Monroys d">HDL- Medical Cholesterol Center </content>61 MG/DL<content styleCode="Shana lics"> (> 60 MG/DL)</conten t> ID Date Data Source Hormones.[id number] 11/13/2018 11:20:00 AM EDT [facility] Name Value Range Interpretation Description Data Sup porting Code Source(s) Document(s ) Thyroxine (T4) 0.78-2.1 <content [facility] free 9 styleCode="Addis Watson [Mass/volume] d">T4 Free Medical in Serum or </content>0.88 Center Plasma NG/DL<content styleCode="Shana lics"> (0.78-2.19 NG/DL)</conten t> Thyrotropin 0.465-4. <content [facility] [Units/volume] 68 styleCode="Addis Watson in Serum or d">Thyroid Medical Plasma by Stimulating Center Detection Hormone limit <= 0.05 </content>1.99 mIU/L MIU/L<content styleCode="Shana lics"> (0.465-4.68 MIU/L)</conten t> ID Date Data Source HematologyRou.[id number] 11/13/2018 11:20:00 AM EDT [facility] 0400 Name Value Range Interpretation Description Data Sup porting Code Source(s) Document(s ) Leukocytes 4.4-11.0 <content [facility] [#/volume] in styleCode="Bold Shirley Blood by ">White Blood Medical Automated count Cell Count Center </content>10.21 KCUMM<content styleCode="Ital ics"> (4.4-11.0 KCUMM)</content > Erythrocyte mean 80.0-100 <content [facility] corpuscular .0 styleCode="Bold Shirley volume [Entitic ">Mean Medical volume] by Corpuscular Center Automated count Volume </content>90.6 FL<content styleCode="Ital ics"> (80.0-100.0 FL)</content> Hematocrit 41.0-53. <content [facility] [Volume 0 styleCode="Bold Shirley Fraction] of ">Hematocrit Medical Blood by </content>42.6 Center Automated count %<content styleCode="Ital ics"> (41.0-53.0 %)</content> Erythrocytes 4.4-5.9 <content [facility] [#/volume] in styleCode="Bold Shirley Blood by ">Red Blood Medical Automated count Cell Count Center </content>4.70 MCUMM<content styleCode="Ital ics"> (4.4-5.9 MCUMM)</content > Hemoglobin 13.5-17. <content [facility] [Mass/volume] in 5 styleCode="Bold Shirley Blood ">Hemoglobin Medical </content>13.6 Center G/DL<content styleCode="Ital ics"> (13.5-17.5 G/DL)</content> Erythrocyte 11.5-14. <content [facility] distribution 5 styleCode="Bold Shirley width [Ratio] by ">Red Cell Medical Automated count Distribution Center Width </content>14.3 %<content styleCode="Ital ics"> (11.5-14.5 %)</content> Erythrocyte mean 32.0-37. Below low normal <content [facility] corpuscular 0 styleCode="Bold Shirley hemoglobin ">Mean Corpus. Medical concentration Hgb Center [Mass/volume] by Concentration Automated count (MCHC) </content>31.9 G/DL L<content styleCode="Ital ics"> (32.0-37.0 G/DL)</content> Platelets 130-400 <content [facility] [#/volume] in styleCode="Bold Shirley Blood by ">Platelet Medical Automated count Count Center </content>347 KCUMM<content styleCode="Ital ics"> (130-400 KCUMM)</content > Erythrocyte mean 26.0-34. <content [facility] corpuscular 0 styleCode="Bold Shirley hemoglobin ">Mean Medical [Entitic mass] Corposcular Center by Automated Hemoglobin count </content>28.9 PG<content styleCode="Ital ics"> (26.0-34.0 PG)</content> Lymphocytes 24.0-44. <content [facility] [#/volume] in 0 styleCode="Bold Shirley Blood by ">Lymphocyte Medical Automated count </content>27.4 Center %<content styleCode="Ital ics"> (24.0-44.0 %)</content> Platelet mean 8.0-11.0 <content [facility] volume [Entitic styleCode="Bold Shirley volume] in Blood ">Mean Platelet Medical by Automated Volume Center count </content>9.4 FL<content styleCode="Ital ics"> (8.0-11.0 FL)</content> Neutrophils 36-66 <content [facility] [#/volume] in styleCode="Bold Shirley Blood by ">Neutrophil Medical Automated count </content>55.0 Center %<content styleCode="Ital ics"> (36-66 %)</content> UNK 1.6-7.3 <content [facility] styleCode="Bold Shirley ">Neutrophil Medical Count Center </content>5.62 KCUMM<content styleCode="Ital ics"> (1.6-7.3 KCUMM)</content > Monocytes 3.0-10.0 <content [facility] [#/volume] in styleCode="Bold Shirley Blood by ">Monocyte Medical Automated count </content>6.7 Center %<content styleCode="Ital ics"> (3.0-10.0 %)</content> Eosinophils 0-5.0 Above high <content [facility] [#/volume] in normal styleCode="Bold Shirley Blood by ">Eosinophil Medical Automated count </content>7.4 % Center H<content styleCode="Ital ics"> (0-5.0 %)</content> UNK 1.0-4.8 <content [facility] styleCode="Bold Shirley ">Lymphocyte Medical Count Center </content>2.80 KCUMM<content styleCode="Ital ics"> (1.0-4.8 KCUMM)</content > UNK 0.2-0.9 <content [facility] styleCode="Bold Shirley ">Monocyte Medical Count Center </content>0.68 KCUMM<content styleCode="Ital ics"> (0.2-0.9 KCUMM)</content > UNK 0.0-0.6 Above high <content [facility] normal styleCode="Bold Shirley ">Eosinophil Medical Count Center </content>0.76 KCUMM H<content styleCode="Ital ics"> (0.0-0.6 KCUMM)</content > Basophils 0.0-1.0 Above high <content [facility] [#/volume] in normal styleCode="Bold Shirley Blood by ">Basophil Medical Automated count </content>1.9 % Center H<content styleCode="Ital ics"> (0.0-1.0 %)</content> UNK 0.0-0.3 <content [facility] styleCode="Bold Shirley ">Basophil Medical Count Center </content>0.19 KCUMM<content styleCode="Ital ics"> (0.0-0.3 KCUMM)</content > UNK 0-0.1 Above high <content [facility] normal styleCode="Bold Shirley ">Immature Medical Granulocyte Center Count </content>0.16 KCUMM H<content styleCode="Ital ics"> (0-0.1 KCUMM)</content > UNK < 1 Above high <content [facility] normal styleCode="Bold Shirley ">Immature Medical Granulocyte Center Ratio </content>1.6 % H<content styleCode="Ital ics"> (< 1 %)</content> UNK 0 <content [facility] styleCode="Bold Shirley ">Nucleated Red Medical Blood Cell Center </content>0.0 /100<content styleCode="Ital ics"> (0 /100)</content> UNK 0.0 <content [facility] styleCode="Bold Shilrey ">Nucleated Red Medical Blood Cell Center Count </content>0.00 KCUMM<content styleCode="Ital ics"> (0.0 KCUMM)</content > ID Date Data Source GFR(Creatinine).[id number] 11/13/2018 11:20:00 AM EDT [facility] 0-0400 Name Value Range Interpretation Code Description Data Petra rce(s) Supporting Document(s ) UNK > 60 <content [facility] styleCode="Bold"> Medical Cent er EGFR </content>80 GFR<content styleCode="Italic s"> (> 60 GFR)</content> ID Date Data Source ChemistrySpecia.[id number] 11/13/2018 11:20:00 AM EDT [facility] 0-0400 Name Value Range Interpretation Description Data Sup porting Code Source(s) Document(s ) Cobalamin 239-931 <content Saint (Vitamin B12) styleCode="Addis Shirley [Mass/volume] d">Vitamin B12 Medical in Serum or </content>777 Center Plasma PG/ML<content styleCode="Shana lics"> (239-931 PG/ML)</conten t> ID Date Data Source CHMROUTINECCDA.[id number] 11/13/2018 11:20:00 AM EDT [facility] -0400 Name Value Range Interpretation Description Data Sup porting Code Source(s) Document(s ) UNK 4.2-5.8 <content [facility] styleCode="Bold Shirley ">Hemoglobin Medical A1C Center </content>5.3 %<content styleCode="Ital ics"> (4.2-5.8 %)</content> UNK 2.3-3.5 <content [facility] styleCode="Bold Shirley ">Globulin Medical </content>2.7 Center G/DL<content styleCode="Ital ics"> (2.3-3.5 G/DL)</content> Prostate < 4.0 <content [facility] specific Ag styleCode="Bold Shirley [Mass/volume ">Prostate Medical ] in Serum Specific Center or Plasma Antigen </content>0.673 NG/ML<content styleCode="Ital ics"> (< 4.0 NG/ML)</content > UNK >= 1.0 <content [facility] styleCode="Bold Shirley ">AG Ratio Medical </content>1.6 Center <content styleCode="Ital ics"> (>= 1.0 )</content> Protein 6.3-8.2 <content [facility] [Mass/volume styleCode="Bold Shirley ] in Serum ">Total Protein Medical or Plasma </content>7.1 Center G/DL<content styleCode="Ital ics"> (6.3-8.2 G/DL)</content> ID Date Data Source [facility].[id number] 11/13/2018 11:20:00 AM EDT [facility] Name Value Range Interpretation Description Data Sup porting Code Source(s) Document(s ) Chloride 98-107 <content [facility] [Moles/volume] in styleCode="Bold"> [facility] Serum or Plasma Chloride Medical </content>104 Center MEQ/L<content styleCode="Italic s"> (98-107 MEQ/L)</content> Sodium 137-145 <content [facility] [Moles/volume] in styleCode="Bold"> [facility] Serum or Plasma Sodium Medical </content>141 Center MEQ/L<content styleCode="Italic s"> (137-145 MEQ/L)</content> Potassium 3.5-5.3 <content [facility] [Moles/volume] in styleCode="Bold"> Wilbert phs Serum or Plasma Potassium Medical </content>4.3 Center MEQ/L<content styleCode="Italic s"> (3.5-5.3 MEQ/L)</content> Glucose 74-106 <content [facility] [Mass/volume] in styleCode="Bold"> Ronnie hs Serum or Plasma Glucose Medical </content>95 Center MG/DL<content styleCode="Italic s"> (74-106 MG/DL)</content> UNK 9-20 <content [facility] styleCode="Bold"> Shirley BUN </content>9 Medical MG/DL<content Center styleCode="Italic s"> (9-20 MG/DL)</content> Carbon dioxide, 22-30 <content [facility] total styleCode="Bold"> Shirley [Moles/volume] in Carbon Dioxide Medical Serum or Plasma </content>27 Center MEQ/L<content styleCode="Italic s"> (22-30 MEQ/L)</content> Creatinine 0.5-1.3 <content [facility] [Mass/volume] in styleCode="Bold"> Ronnie hs Serum or Plasma Creatinine Medical </content>1.1 Center MG/DL<content styleCode="Italic s"> (0.5-1.3 MG/DL)</content> Aspartate 17-59 <content [facility] aminotransferase styleCode="Bold"> Ronnie hs [Enzymatic Aspartate Medical activity/volume] Aminotransferase Center in Serum or Plasma (AST) </content>34 IU/L<content styleCode="Italic s"> (17-59 IU/L)</content> Alanine 7-50 <content [facility] aminotransferase styleCode="Bold"> Ronnie hs [Enzymatic Alanine Medical activity/volume] Aminotransferase Center in Serum or Plasma (ALT) </content>30 IU/L<content styleCode="Italic s"> (7-50 IU/L)</content> Calcium 8.4-10. <content [facility] [Mass/volume] in 2 styleCode="Bold"> Ronnie hs Serum or Plasma Calcium Medical </content>9.4 Center MG/DL<content styleCode="Italic s"> (8.4-10.2 MG/DL)</content> UNK > 60 <content [facility] styleCode="Bold"> Shirley EGFR </content>80 Medical GFR<content Center styleCode="Italic s"> (> 60 GFR)</content> Albumin 3.5-5.0 <content [facility] [Mass/volume] in styleCode="Bold"> Ronnie hs Serum or Plasma Albumin Medical </content>4.4 Center G/DL<content styleCode="Italic s"> (3.5-5.0 G/DL)</content> Alkaline 38-126 <content [facility] phosphatase styleCode="Bold"> Shirley [Enzymatic Alkaline Medical activity/volume] Phosphatase (ALP) Cente r in Serum or Plasma </content>97 IU/L<content styleCode="Italic s"> (38-126 IU/L)</content> Bilirubin.total 0.2-1.3 <content [facility] [Mass/volume] in styleCode="Bold"> Ronnie hs Serum or Plasma Bilirubin Total Medical </content>0.4 Center MG/DL<content styleCode="Italic s"> (0.2-1.3 MG/DL)</content> ID Date Data Source Urinalysis 11/13/2018 11:20:00 AM EDT [facility] Name Value Range Interpretation Description Data Sup porting Code Source(s) Document(s ) Color of Urine YELLOW <content [facility] styleCode="Addis Monroys d">Color, Medical Urine Center </content>YELL OW <content styleCode="Shana lics"> (YELLOW )</content> UNK CLEAR <content Saint styleCode="[facility] d">Urine Medical Clarity Center </content>SARA R <content styleCode="Shana lics"> (CLEAR )</content> UNK NEGATIVE <content Saint styleCode="Addis Monroys d">Urine Medical Bilirubin Center </content>NEGA TIVE <content styleCode="Shana lics"> (NEGATIVE )</content> Ketones NEGATIVE <content Saint [Mass/volume] styleCode="Addis Watson in Urine by d">Urine Medical Test strip Ketone Center </content>NEGA TIVE MG/DL<content styleCode="Shana lics"> (NEGATIVE MG/DL)</conten t> Specific 1.015-1.02 Below low normal <content [facility] gravity of 5 styleCode="Addis Watson Urine by Test d">Urine Medical strip Specific Center [place] </content><= 1.005 L<content styleCode="Shana lics"> (1.015-1.025 )</content> Glucose NEGATIVE <content [facility] [Mass/volume] styleCode="Addis Monroys in Urine by d">Urine Medical Test strip Glucose Center </content>NEGA TIVE MG/DL<content styleCode="Shana lics"> (NEGATIVE MG/DL)</conten t> Urobilinogen 0.2-1.0 <content [facility] [Units/volume] styleCode="Addis Shirley in Urine by d">Urine Medical Test strip Urobilinogen Center </content>0.2 MG/DL<content styleCode="Shana lics"> (0.2-1.0 MG/DL)</conten t> Hemoglobin NEGATIVE <content [facility] [Presence] in styleCode="Addis Monroys Urine by Test d">Urine Blood Medical strip </content>NEGA Center TIVE <content styleCode="Shana lics"> (NEGATIVE )</content> Nitrite NEGATIVE <content [facility] [Presence] in styleCode="Addis Monroys Urine by Test d">Urine Medical strip Nitrite Center </content>NEGA TIVE <content styleCode="Shana lics"> (NEGATIVE )</content> pH of Urine by 4.5-8.0 <content [facility] Test strip styleCode="Addis Shirley d">Urine pH Medical </content>7.0 Center <content styleCode="Shana lics"> (4.5-8.0 )</content> Leukocyte NEGATIVE <content [facility] esterase styleCode="Addis Monroys [Presence] in d">Urine Medical Urine by Test Leukocyte Center strip </content>NEGA TIVE <content styleCode="Shana lics"> (NEGATIVE )</content> Protein NEGATIVE <content [facility] [Mass/volume] styleCode="Addis Monroys in Urine by d">Urine Medical Test strip Protein Center </content>NEGA TIVE MG/DL<content styleCode="Shana lics"> (NEGATIVE MG/DL)</conten t> ID Date Data Source Liver Profile 11/13/2018 11:20:00 AM EDT [facility] Name Value Range Interpretation Description Data Sup porting Code Source(s) Document(s ) Aspartate 17-59 <content [facility] aminotransferase styleCode="Bold"> Ronnie hs [Enzymatic Aspartate Medical activity/volume] Aminotransferase Center in Serum or Plasma (AST) </content>34 IU/L<content styleCode="Italic s"> (17-59 IU/L)</content> Alanine 7-50 <content [facility] aminotransferase styleCode="Bold"> Ronnie hs [Enzymatic Alanine Medical activity/volume] Aminotransferase Center in Serum or Plasma (ALT) </content>30 IU/L<content styleCode="Italic s"> (7-50 IU/L)</content> Bilirubin.total 0.2-1.3 <content [facility] [Mass/volume] in styleCode="Bold"> Ronnie hs Serum or Plasma Bilirubin Total Medical </content>0.4 Center MG/DL<content styleCode="Italic s"> (0.2-1.3 MG/DL)</content> Alkaline 38-126 <content [facility] phosphatase styleCode="Bold"> Shirley [Enzymatic Alkaline Medical activity/volume] Phosphatase (ALP) Cente r in Serum or Plasma </content>97 IU/L<content styleCode="Italic s"> (38-126 IU/L)</content> Albumin 3.5-5.0 <content [facility] [Mass/volume] in styleCode="Bold"> Ronnie hs Serum or Plasma Albumin Medical </content>4.4 Center G/DL<content styleCode="Italic s"> (3.5-5.0 G/DL)</content> ID Date Data Source LIPID 11/13/2018 11:20:00 AM EDT [facility] Name Value Range Interpretation Description Data Sup porting Code Source(s) Document(s ) Triglyceride < 150 <content [facility] [Mass/volume] in styleCode="[facility] Serum or Plasma d">Triglycerid Medical es Center </content>52 MG/DL<content styleCode="Shana lics"> (< 150 MG/DL)</conten t> Cholesterol -<200 <content [facility] [Mass/volume] in styleCode="[facility] Serum or Plasma d">Cholesterol Medical </content>180 Center MG/DL<content styleCode="Shana lics"> (-<200 MG/DL)</conten t> UNK < 100 <content Saint styleCode="Addis Shirley d">LDL-[facility] Medical rosy Center </content>90 MG/DL<content styleCode="Shana lics"> (< 100 MG/DL)</conten t> UNK > 60 <content Saint styleCode="Addis Shirley d">HDL- Medical Cholesterol Center </content>80 MG/DL<content styleCode="Shana lics"> (> 60 MG/DL)</conten t> UNK < 100 <content [facility] styleCode="Addis Shirley d">LDL-[facility] Medical rosy Center </content>94 MG/DL<content styleCode="Shana lics"> (< 100 MG/DL)</conten t> UNK > 60 <content Saint styleCode="Addis Shirley d">HDL- Medical Cholesterol Center </content>61 MG/DL<content styleCode="Shana lics"> (> 60 MG/DL)</conten t> Cholesterol -<200 <content [facility] [Mass/volume] in styleCode="Addis Shirley Serum or Plasma d">Cholesterol Medical </content>166 Center MG/DL<content styleCode="Shana lics"> (-<200 MG/DL)</conten t> Triglyceride < 150 <content [facility] [Mass/volume] in styleCode="[facility] Serum or Plasma d">Triglycerid [facility] </content>57 MG/DL<content styleCode="Shana lics"> (< 150 MG/DL)</conten t> ID Date Data Source Hormones 11/13/2018 11:20:00 AM EDT [facility] Name Value Range Interpretation Description Data Sup porting Code Source(s) Document(s ) Thyroxine (T4) 0.78-2.1 <content [facility] free 9 styleCode="Addis Shirley [Mass/volume] d">T4 Free Medical in Serum or </content>0.94 Center Plasma NG/DL<content styleCode="Shana lics"> (0.78-2.19 NG/DL)</conten t> Thyrotropin 0.465-4. <content [facility] [Units/volume] 68 styleCode="Addis Shriley in Serum or d">Thyroid Medical Plasma by Stimulating Center Detection Hormone limit <= 0.05 </content>1.18 mIU/L MIU/L<content styleCode="Shana lics"> (0.465-4.68 MIU/L)</conten t> Thyrotropin 0.465-4. <content [facility] [Units/volume] 68 styleCode="Addis Shirley in Serum or d">Thyroid Medical Plasma by Stimulating Center Detection Hormone limit <= 0.05 </content>1.99 mIU/L MIU/L<content styleCode="Shana lics"> (0.465-4.68 MIU/L)</conten t> Thyroxine (T4) 0.78-2.1 <content [facility] free 9 styleCode="Addis Shirley [Mass/volume] d">T4 Free Medical in Serum or </content>0.88 Center Plasma NG/DL<content styleCode="Shana lics"> (0.78-2.19 NG/DL)</conten t> ID Date Data Source HematologyRou 11/13/2018 11:20:00 AM EDT [facility] Name Value Range Interpretation Description Data Sup porting Code Source(s) Document(s ) Leukocytes 4.4-11.0 <content [facility] [#/volume] in styleCode="Bold Shirley Blood by ">White Blood Medical Automated count Cell Count Center </content>10.21 KCUMM<content styleCode="Ital ics"> (4.4-11.0 KCUMM)</content > Hemoglobin 13.5-17. <content [facility] [Mass/volume] in 5 styleCode="Bold Shirley Blood ">Hemoglobin Medical </content>13.6 Center G/DL<content styleCode="Ital ics"> (13.5-17.5 G/DL)</content> Erythrocytes 4.4-5.9 <content [facility] [#/volume] in styleCode="Bold Shirley Blood by ">Red Blood Medical Automated count Cell Count Center </content>4.70 MCUMM<content styleCode="Ital ics"> (4.4-5.9 MCUMM)</content > Hematocrit 41.0-53. <content [facility] [Volume 0 styleCode="Bold Shirley Fraction] of ">Hematocrit Medical Blood by </content>42.6 Center Automated count %<content styleCode="Ital ics"> (41.0-53.0 %)</content> Erythrocyte mean 80.0-100 <content [facility] corpuscular .0 styleCode="Bold Shirley volume [Entitic ">Mean Medical volume] by Corpuscular Center Automated count Volume </content>90.6 FL<content styleCode="Ital ics"> (80.0-100.0 FL)</content> Erythrocyte 11.5-14. <content [facility] distribution 5 styleCode="Bold Shirley width [Ratio] by ">Red Cell Medical Automated count Distribution Center Width </content>14.3 %<content styleCode="Ital ics"> (11.5-14.5 %)</content> Platelets 130-400 <content Saint [#/volume] in styleCode="Bold Shirley Blood by ">Platelet Medical Automated count Count Center </content>347 KCUMM<content styleCode="Ital ics"> (130-400 KCUMM)</content > Erythrocyte mean 32.0-37. Below low normal <content [facility] corpuscular 0 styleCode="Bold Shirley hemoglobin ">Mean Corpus. Medical concentration Hgb Center [Mass/volume] by Concentration Automated count (MCHC) </content>31.9 G/DL L<content styleCode="Ital ics"> (32.0-37.0 G/DL)</content> Erythrocyte mean 26.0-34. <content [facility] corpuscular 0 styleCode="Bold Shirley hemoglobin ">Mean Medical [Entitic mass] Corposcular Center by Automated Hemoglobin count </content>28.9 PG<content styleCode="Ital ics"> (26.0-34.0 PG)</content> UNK 1.6-7.3 <content Saint styleCode="Bold Shirley ">Neutrophil Medical Count Center </content>5.62 KCUMM<content styleCode="Ital ics"> (1.6-7.3 KCUMM)</content > Neutrophils 36-66 <content Saint [#/volume] in styleCode="Bold Shirley Blood by ">Neutrophil Medical Automated count </content>55.0 Center %<content styleCode="Ital ics"> (36-66 %)</content> Platelet mean 8.0-11.0 <content [facility] volume [Entitic styleCode="Bold Shirley volume] in Blood ">Mean Platelet Medical by Automated Volume Center count </content>9.4 FL<content styleCode="Ital ics"> (8.0-11.0 FL)</content> Lymphocytes 24.0-44. <content [facility] [#/volume] in 0 styleCode="Bold Shirley Blood by ">Lymphocyte Medical Automated count </content>27.4 Center %<content styleCode="Ital ics"> (24.0-44.0 %)</content> UNK 1.0-4.8 <content Saint styleCode="Bold Shirley ">Lymphocyte Medical Count Center </content>2.80 KCUMM<content styleCode="Ital ics"> (1.0-4.8 KCUMM)</content > UNK 0.0-0.6 Above high <content Saint normal styleCode="Bold Shirley ">Eosinophil Medical Count Center </content>0.76 KCUMM H<content styleCode="Ital ics"> (0.0-0.6 KCUMM)</content > UNK 0.0-0.3 <content Saint styleCode="Bold Shirley ">Basophil Medical Count Center </content>0.19 KCUMM<content styleCode="Ital ics"> (0.0-0.3 KCUMM)</content > Eosinophils 0-5.0 Above high <content Saint [#/volume] in normal styleCode="Bold Shirley Blood by ">Eosinophil Medical Automated count </content>7.4 % Center H<content styleCode="Ital ics"> (0-5.0 %)</content> Monocytes 3.0-10.0 <content Saint [#/volume] in styleCode="Bold Shirley Blood by ">Monocyte Medical Automated count </content>6.7 Center %<content styleCode="Ital ics"> (3.0-10.0 %)</content> Basophils 0.0-1.0 Above high <content Saint [#/volume] in normal styleCode="Bold Shirley Blood by ">Basophil Medical Automated count </content>1.9 % Center H<content styleCode="Ital ics"> (0.0-1.0 %)</content> UNK 0.2-0.9 <content Saint styleCode="Bold Shirley ">Monocyte Medical Count Center </content>0.68 KCUMM<content styleCode="Ital ics"> (0.2-0.9 KCUMM)</content > UNK 0 <content Saint styleCode="Bold Shirley ">Nucleated Red Medical Blood Cell Center </content>0.0 /100<content styleCode="Ital ics"> (0 /100)</content> UNK < 1 Above high <content Saint normal styleCode="Bold Shirley ">Immature Medical Granulocyte Center Ratio </content>1.6 % H<content styleCode="Ital ics"> (< 1 %)</content> UNK 0.0 <content styleCode="Bold Shirley ">Nucleated Red Medical Blood Cell Center Count </content>0.00 KCUMM<content styleCode="Ital ics"> (0.0 KCUMM)</content > UNK 0-0.1 Above high <content [facility] normal styleCode="Bold Shirley ">Immature Medical Granulocyte Center Count </content>0.16 KCUMM H<content styleCode="Ital ics"> (0-0.1 KCUMM)</content > ID Date Data Source GFR(Creatinine) 11/13/2018 11:20:00 AM EDT [facility] Name Value Range Interpretation Code Description Data Petra rce(s) Supporting Document(s ) UNK > 60 <content [facility] styleCode="Bold"> Medical Cent er EGFR </content>80 GFR<content styleCode="Italic s"> (> 60 GFR)</content> ID Date Data Source ChemistrySpecia 11/13/2018 11:20:00 AM EDT [facility] Name Value Range Interpretation Description Data Sup porting Code Source(s) Document(s ) Cobalamin 239-931 <content Saint (Vitamin B12) styleCode="Addis Shirley [Mass/volume] d">Vitamin B12 Medical in Serum or </content>777 Center Plasma PG/ML<content styleCode="Shana lics"> (239-931 PG/ML)</conten t> ID Date Data Source CHMROUTINECCDA 11/13/2018 11:20:00 AM EDT [facility] Name Value Range Interpretation Description Data Sup porting Code Source(s) Document(s ) UNK 4.2-5.8 <content Saint styleCode="Bold Shirley ">Hemoglobin Medical A1C Center </content>5.4 %<content styleCode="Ital ics"> (4.2-5.8 %)</content> Prostate < 4.0 <content [facility] specific Ag styleCode="Bold Shirley [Mass/volume ">Prostate Medical ] in Serum Specific Center or Plasma Antigen </content>0.673 NG/ML<content styleCode="Ital ics"> (< 4.0 NG/ML)</content > UNK 4.2-5.8 <content Saint styleCode="Bold Shirley ">Hemoglobin Medical A1C Center </content>5.3 %<content styleCode="Ital ics"> (4.2-5.8 %)</content> UNK 2.3-3.5 <content Saint styleCode="Bold Shirley ">Globulin Medical </content>2.7 Center G/DL<content styleCode="Ital ics"> (2.3-3.5 G/DL)</content> UNK >= 1.0 <content Saint styleCode="Bold Shirley ">AG Ratio Medical </content>1.6 Center <content styleCode="Ital ics"> (>= 1.0 )</content> Protein 6.3-8.2 <content [facility] [Mass/volume styleCode="Bold Shirley ] in Serum ">Total Protein Medical or Plasma </content>7.1 Center G/DL<content styleCode="Ital ics"> (6.3-8.2 G/DL)</content> ID Date Data Source BMP 11/13/2018 11:20:00 AM EDT [facility] Name Value Range Interpretation Description Data Sup porting Code Source(s) Document(s ) Potassium 3.5-5.3 <content Saint [Moles/volume] in styleCode="Bold"> Wilbert phs Serum or Plasma Potassium Medical </content>4.3 Center MEQ/L<content styleCode="Italic s"> (3.5-5.3 MEQ/L)</content> Chloride 98-107 <content [facility] [Moles/volume] in styleCode="Bold"> [facility] Serum or Plasma Chloride Medical </content>104 Center MEQ/L<content styleCode="Italic s"> (98-107 MEQ/L)</content> Sodium 137-145 <content [facility] [Moles/volume] in styleCode="Bold"> [facility] Serum or Plasma Sodium Medical </content>141 Center MEQ/L<content styleCode="Italic s"> (137-145 MEQ/L)</content> Glucose 74-106 <content [facility] [Mass/volume] in styleCode="Bold"> Ronnie hs Serum or Plasma Glucose Medical </content>95 Center MG/DL<content styleCode="Italic s"> (74-106 MG/DL)</content> UNK > 60 <content Saint styleCode="Bold"> Shirley EGFR </content>80 Medical GFR<content Center styleCode="Italic s"> (> 60 GFR)</content> UNK 9-20 <content Saint styleCode="Bold"> Shirley BUN </content>9 Medical MG/DL<content Center styleCode="Italic s"> (9-20 MG/DL)</content> Carbon dioxide, 22-30 <content Saint total styleCode="Bold"> Shirley [Moles/volume] in Carbon Dioxide Medical Serum or Plasma </content>27 Center MEQ/L<content styleCode="Italic s"> (22-30 MEQ/L)</content> Creatinine 0.5-1.3 <content [facility] [Mass/volume] in styleCode="Bold"> Ronnie hs Serum or Plasma Creatinine Medical </content>1.1 Center MG/DL<content styleCode="Italic s"> (0.5-1.3 MG/DL)</content> Calcium 8.4-10. <content [facility] [Mass/volume] in 2 styleCode="Bold"> Ronnie hs Serum or Plasma Calcium Medical </content>9.4 Center MG/DL<content styleCode="Italic s"> (8.4-10.2 MG/DL)</content> Alanine 7-50 <content [facility] aminotransferase styleCode="Bold"> Ronnie hs [Enzymatic Alanine Medical activity/volume] Aminotransferase Center in Serum or Plasma (ALT) </content>30 IU/L<content styleCode="Italic s"> (7-50 IU/L)</content> Albumin 3.5-5.0 <content [facility] [Mass/volume] in styleCode="Bold"> Ronnie hs Serum or Plasma Albumin Medical </content>4.4 Center G/DL<content styleCode="Italic s"> (3.5-5.0 G/DL)</content> Alkaline 38-126 <content [facility] phosphatase styleCode="Bold"> Shirley [Enzymatic Alkaline Medical activity/volume] Phosphatase (ALP) Cente r in Serum or Plasma </content>97 IU/L<content styleCode="Italic s"> (38-126 IU/L)</content> Aspartate 17-59 <content [facility] aminotransferase styleCode="Bold"> Ronnie hs [Enzymatic Aspartate Medical activity/volume] Aminotransferase Center in Serum or Plasma (AST) </content>34 IU/L<content styleCode="Italic s"> (17-59 IU/L)</content> Bilirubin.total 0.2-1.3 <content [facility] [Mass/volume] in styleCode="Bold"> Ronnie hs Serum or Plasma Bilirubin Total Medical </content>0.4 Center MG/DL<content styleCode="Italic s"> (0.2-1.3 MG/DL)</content> ID Date Data Source [id number] 08/14/2018 12:21:00 PM EST [facility] Name Value Range Interpretation Description Data Sup porting Code Source(s) Document(s ) Cholesterol -<200 <content [facility] [Mass/volume] in styleCode="Addis Shirley Serum or Plasma d">Cholesterol Medical </content>180 Center MG/DL<content styleCode="Shana lics"> (-<200 MG/DL)</conten t> Triglyceride < 150 <content [facility] [Mass/volume] in styleCode="Addis Shirley Serum or Plasma d">Triglycerid [facility] </content>52 MG/DL<content styleCode="Shana lics"> (< 150 MG/DL)</conten t> UNK < 100 <content Saint styleCode="Addis Shirley d">LDL-[facility] </content>90 MG/DL<content styleCode="Shana lics"> (< 100 MG/DL)</conten t> UNK > 60 <content Saint styleCode="Addis Shirley d">HDL- [facility] Cholesterol [place] </content>80 MG/DL<content styleCode="Shana lics"> (> 60 MG/DL)</conten t> ID Date Data Source [id number] 08/14/2018 12:21:00 PM EST Oskar patton [facility] Name Value Range Interpretation Description Data Sup porting Code Source(s) Document(s ) Thyroxine (T4) 0.78-2.1 <content [facility] free 9 styleCode="Addis Shirley [Mass/volume] d">T4 Free Medical in Serum or </content>0.94 Center Plasma NG/DL<content styleCode="Shana lics"> (0.78-2.19 NG/DL)</conten t> Thyrotropin 0.465-4. <content Saint [Units/volume] 68 styleCode="Addis Shirley in Serum or d">Thyroid Medical Plasma by Stimulating Center Detection Hormone limit <= 0.05 </content>1.18 mIU/L MIU/L<content styleCode="Shana lics"> (0.465-4.68 MIU/L)</conten t> ID Date Data Source [id number] 08/14/2018 12:21:00 PM EST Sixto nt [facility] -0500 Name Value Range Interpretation Code Description Data Petra rce(s) Supporting Document(s ) UNK 4.2-5.8 <content [facility] styleCode="Bold" Medical Cente r >Hemoglobin A1C </content>5.4 %<content styleCode="Itali cs"> (4.2-5.8 %)</content> Procedure Social History Code Duration Value Status Description Data Source(s ) Caffeine Use 03/23/2020 completed tea, 1 cup NEXTGEN ([facility] nt Details 12:00:00 AM EDT [facility]) Smoking 03/23/2020 Unknown if completed Unknown if ever NEXTGEN ( [facility] 12:00:00 AM EDT ever smoked smoked [facility]) Alcohol Use 03/22/2020 completed vodka 1 pint NEXTGEN ( int Details 12:00:00 AM EDT daily [facility]) Caffeine Use 06/18/2019 completed coffee, > 6 cups NEXTGE N ([facility] Details 12:00:00 AM [facility]) Smoking 03/22/2015 Current Every completed Current Every Day [facility] 12:00:00 PM EDT [facility] Smoking 03/22/2015 Current Every completed Current Every Day [facility] 12:00:00 PM EDT [facility] Smoking 03/22/2015 Current Every completed Current Every Day [facility] 12:00:00 PM EDT [facility] Smoking 03/22/2015 Current Every completed Current Every Day [facility] 12:00:00 PM EDT [facility] Smoking 03/22/2015 Current Every completed Current Every Day [facility] 12:00:00 PM EDT [facility] Smoking 03/22/2015 Current Every completed Current Every Day [facility] 12:00:00 PM EDT [facility] Smoking 03/22/2015 Current Every completed Current Every Day [facility] 12:00:00 PM EDT [facility] Smoking 03/22/2015 Current Every completed Current Every Day [facility] 12:00:00 PM EDT [facility] Smoking 03/22/2015 Current Every [facility] Smoking 03/22/2015 Current Every completed Current Every Day [facility] 12:00:00 PM EDT [facility] Sm[facility] Smoker Hospital Smoking Unknown if completed Unknown if ever [facility] Bryce khan ever smoked smoked Medical Cente r Vital Signs ID Date Data Source UNK Name Value Range Interpretation Code Description Data Source(s) Oxygen 98 % 98 % NEXTGEN saturation in ([facility] Arterial blood [facility] by Pulse Medical oximetry Center) Body mass index 21.47 kg/m2 21.47 [facility] Body temperature 36.67 Sugar 36.67 Sugar [facility] Heart rate 102 /min 102 /min [facility] ([facility]) Diastolic blood 78 mm[Hg] 78 mm[Hg] NEXTGEN pressure ([facility]) Systolic blood 121 mm[Hg] 121 mm[Hg] NEXTGEN pressure ([facility]) Body weight 60.328 kg 60.328 kg [facility] ([facility]) Body height 167.64 cm 167.64 cm [facility] ([facility]) Oxygen 98 % 98 % NEXTGEN saturation in ([facility] by Pulse Medical oximetry [place]) Body mass index 21.63 kg/m2 21.63 kg/m2 NEXTGEN (BMI) [Ratio] ([facility]) Body temperature 36.78 Sugar 36.78 Sugar [facility] Heart rate 90 /min 90 /min [facility] Diastolic blood 76 mm[Hg] 76 mm[Hg] NEXTGEN pressure ([facility]) Systolic blood 125 mm[Hg] 125 mm[Hg] NEXTGEN pressure ([facility]) Body weight 60.781 kg 60.781 kg [facility] ([facility]) Body height 167.64 cm 167.64 cm [facility] ([facility]) Diastolic blood 72 mmHg 72 mmHg [facility] Systolic blood 113 mmHg 113 mmHg [facility] Heart rate 87 bpm 87 bpm [facility] Diastolic blood 78 mmHg 78 mmHg [facility] Systolic blood 115 mmHg 115 mmHg [facility] Respiratory rate 18 bpm 18 bpm [facility] Heart rate 81 bpm 81 bpm [facility] Body temperature 97.8 Fahrenheit 97.8 Fahrenhei t [facility] Body temperature 97.4 Fahrenheit 97.4 Fahrenhei t [facility] Diastolic blood 76 mmHg 76 mmHg [facility] Systolic blood 111 mmHg 111 mmHg [facility] Respiratory rate 16 bpm 16 bpm [facility] Heart rate 84 bpm 84 bpm [facility] Diastolic blood 68 mmHg 68 mmHg [facility] Systolic blood 110 mmHg 110 mmHg [facility] Respiratory rate 22 bpm 22 bpm [facility] Heart rate 73 bpm 73 bpm [facility] Body temperature 96.4 Fahrenheit 96.4 Fahrenhei t [facility] Diastolic blood 68 mmHg 68 mmHg [facility] Systolic blood 110 mmHg 110 mmHg [facility] Heart rate 73 bpm 73 bpm [facility] Diastolic blood 73 mmHg 73 mmHg [facility] Systolic blood 105 mmHg 105 mmHg [facility] Heart rate 79 bpm 79 bpm [facility] Diastolic blood 80 mmHg 80 mmHg [facility] Systolic blood 113 mmHg 113 mmHg [facility] Deprecated 98 % 98 % [facility] saturation in Hospital Capillary blood by Oximetry Respiratory rate 16 bpm 16 bpm [facility] Heart rate 77 bpm 77 bpm [facility] Body temperature 98.6 Fahrenheit 98.6 Fahrenh t [facility] Diastolic blood 66 mmHg 66 mmHg [facility] Systolic blood 103 mmHg 103 mmHg [facility] Heart rate 87 bpm 87 bpm [facility] Body weight 135 lbs 135 lbs [facility] Diastolic blood 73 mmHg 73 mmHg [facility] Systolic blood 109 mmHg 109 mmHg [facility] Deprecated 99 % 99 % [facility] saturation in Hospital Capillary blood by Oximetry Respiratory rate 18 bpm 18 bpm [facility] Heart rate 79 bpm 79 bpm [facility] Body temperature 97.8 Fahrenheit 97.8 Fahrenh t [facility] Diastolic blood 76 mmHg 76 mmHg [facility] Systolic blood 122 mmHg 122 mmHg [facility] Respiratory rate 18 bpm 18 bpm [facility] Heart rate 89 bpm 89 bpm [facility] Body temperature 97.9 Fahrenheit 97.9 Fahrenhei t [facility] Diastolic blood 78 mmHg 78 mmHg [facility] Systolic blood 126 mmHg 126 mmHg [facility] Respiratory rate 18 bpm 18 bpm [facility] Heart rate 86 bpm 86 bpm [facility] Body temperature 97.9 Fahrenheit 97.9 Fahrenhei t [facility] Respiratory rate 18 bpm 18 bpm [facility] Body temperature 97.8 Fahrenheit 97.8 Fahrenhei t [facility] Diastolic blood 84 mmHg 84 mmHg [facility] Systolic blood 118 mmHg 118 mmHg [facility] Heart rate 79 bpm 79 bpm [facility] Body temperature 97.4 Fahrenheit 97.4 [facility]hei t [facility] Diastolic blood 74 mmHg 74 mmHg [facility] Systolic blood 110 mmHg 110 mmHg [facility] Respiratory rate 18 bpm 18 bpm [facility] Heart rate 76 bpm 76 bpm [facility] Respiratory rate 18 bpm 18 bpm [facility] Body temperature 97.3 Fahrenheit 97.3 [facility] Diastolic blood 74 mmHg 74 mmHg [facility] Systolic blood 104 mmHg 104 mmHg [facility] Heart rate 81 bpm 81 bpm [facility] Diastolic blood 72 mmHg 72 mmHg [facility] Systolic blood 109 mmHg 109 mmHg [facility] Respiratory rate 18 bpm 18 bpm [facility] Heart rate 78 bpm 78 bpm [facility] Body temperature 98.0 Fahrenheit 98.0 [facility] Diastolic blood 71 mmHg 71 mmHg [facility] Systolic blood 98 mmHg 98 mmHg [facility] Heart rate 90 bpm 90 bpm [facility] Body weight 134 lbs 134 lbs [facility] Diastolic blood 72 mmHg 72 mmHg [facility] Systolic blood 102 mmHg 102 mmHg [facility] Deprecated 96 % 96 % [facility] saturation in Hospital Capillary blood by Oximetry Respiratory rate 16 bpm 16 bpm [facility] Heart rate 85 bpm 85 bpm [facility] Body temperature 97.5 Fahrenheit 97.5 [facility] Diastolic blood 77 mmHg 77 mmHg [facility] Systolic blood 99 mmHg 99 mmHg [facility] Respiratory rate 18 bpm 18 bpm [facility] Heart rate 81 bpm 81 bpm [facility] Body temperature 96.3 Fahrenheit 96.3 [facility] Diastolic blood 67 mmHg 67 mmHg [facility] Systolic blood 101 mmHg 101 mmHg [facility] Respiratory rate 18 bpm 18 bpm [facility] Heart rate 76 bpm 76 bpm [facility] Diastolic blood 67 mmHg 67 mmHg [facility] Systolic blood 110 mmHg 110 mmHg [facility] Respiratory rate 18 bpm 18 bpm [facility] Heart rate 72 bpm 72 bpm [facility] Body temperature 96.5 Fahrenheit 96.5 [facility] Diastolic blood 74 mmHg 74 mmHg [facility] Systolic blood 101 mmHg 101 mmHg [facility] Heart rate 82 bpm 82 bpm [facility] Diastolic blood 73 mmHg 73 mmHg [facility] Systolic blood 108 mmHg 108 mmHg [facility] Respiratory rate 18 bpm 18 bpm [facility] Heart rate 75 bpm 75 bpm [facility] Body temperature 98.0 Fahrenheit 98.0 [facility] Diastolic blood 67 mmHg 67 mmHg [facility] Systolic blood 107 mmHg 107 mmHg [facility] Heart rate 81 bpm 81 bpm [facility] Diastolic blood 67 mmHg 67 mmHg [facility] Systolic blood 104 mmHg 104 mmHg [facility] Respiratory rate 18 bpm 18 bpm [facility] Heart rate 76 bpm 76 bpm [facility] Body temperature 96.3 Fahrenheit 96.3 [facility] Diastolic blood 70 mmHg 70 mmHg [facility] Systolic blood 111 mmHg 111 mmHg [facility] Heart rate 88 bpm 88 bpm [facility] Diastolic blood 72 mmHg 72 mmHg [facility] Systolic blood 106 mmHg 106 mmHg [facility] Respiratory rate 18 bpm 18 bpm [facility] Heart rate 83 bpm 83 bpm [facility] Body temperature 97.7 Fahrenheit 97.7 [facility] Diastolic blood 76 mmHg 76 mmHg [facility] Systolic blood 114 mmHg 114 mmHg [facility] Heart rate 78 bpm 78 bpm [facility] Diastolic blood 71 mmHg 71 mmHg [facility] Systolic blood 111 mmHg 111 mmHg [facility] Respiratory rate 22 bpm 22 bpm [facility] Heart rate 74 bpm 74 bpm [facility] Body temperature 98.1 Fahrenheit 98.1 [facility] Diastolic blood 65 mmHg 65 mmHg [facility] Systolic blood 90 mmHg 90 mmHg [facility] Heart rate 87 bpm 87 bpm [facility] Diastolic blood 64 mmHg 64 mmHg [facility] Systolic blood 97 mmHg 97 mmHg [facility] Respiratory rate 18 bpm 18 bpm [facility] Heart rate 83 bpm 83 bpm [facility] Body temperature 96.8 Fahrenheit 96.8 [facility] Diastolic blood 72 mmHg 72 mmHg [facility] Systolic blood 103 mmHg 103 mmHg [facility] Heart rate 75 bpm 75 bpm [facility] Diastolic blood 71 mmHg 71 mmHg [facility] Systolic blood 103 mmHg 103 mmHg [facility] Respiratory rate 18 bpm 18 bpm [facility] Heart rate 75 bpm 75 bpm [facility] Body temperature 97.6 Fahrenheit 97.6 [facility] Diastolic blood 67 mmHg 67 mmHg [facility] Systolic blood 97 mmHg 97 mmHg [facility] Respiratory rate 18 bpm 18 bpm [facility] Heart rate 83 bpm 83 bpm [facility] Respiratory rate 18 bpm 18 bpm [facility] Heart rate 78 bpm 78 bpm [facility] Body temperature 96.8 Fahrenheit 96.8 [facility] Diastolic blood 65 mmHg 65 mmHg [facility] Systolic blood 100 mmHg 100 mmHg [facility] Diastolic blood 62 mmHg 62 mmHg [facility] Systolic blood 88 mmHg 88 mmHg [facility] Heart rate 88 bpm 88 bpm [facility] Diastolic blood 58 mmHg 58 mmHg [facility] Systolic blood 94 mmHg 94 mmHg [facility] Deprecated 97 % 97 % [facility] saturation in Hospital Capillary blood by Oximetry Respiratory rate 18 bpm 18 bpm [facility] Heart rate 81 bpm 81 bpm [facility] Body temperature 97.1 Fahrenheit 97.1 [facility] Diastolic blood 67 mmHg 67 mmHg [facility] Systolic blood 102 mmHg 102 mmHg [facility] Respiratory rate 20 bpm 20 bpm [facility] Heart rate 74 bpm 74 bpm [facility] Body temperature 98.0 Fahrenheit 98.0 [facility] Diastolic blood 67 mmHg 67 mmHg [facility] Systolic blood 102 mmHg 102 mmHg [facility] Respiratory rate 20 bpm 20 bpm [facility] Heart rate 79 bpm 79 bpm [facility] Body temperature 98.0 Fahrenheit 98.0 [facility] Body temperature 98.8 Fahrenheit 98.8 [facility] Diastolic blood 59 mmHg 59 mmHg [facility] Systolic blood 94 mmHg 94 mmHg [facility] Respiratory rate 18 bpm 18 bpm [facility] Heart rate 84 bpm 84 bpm [facility] Diastolic blood 70 mmHg 70 mmHg [facility] Systolic blood 106 mmHg 106 mmHg [facility] Heart rate 75 bpm 75 bpm [facility] Diastolic blood 68 mmHg 68 mmHg [facility] Systolic blood 107 mmHg 107 mmHg [facility] Respiratory rate 18 bpm 18 bpm [facility] Heart rate 73 bpm 73 bpm [facility] Body temperature 98.0 Fahrenheit 98.0 [facility] Diastolic blood 73 mmHg 73 mmHg [facility] Systolic blood 117 mmHg 117 mmHg [facility] Heart rate 82 bpm 82 bpm [facility] Diastolic blood 67 mmHg 67 mmHg [facility] Systolic blood 109 mmHg 109 mmHg [facility] Respiratory rate 18 bpm 18 bpm [facility] Heart rate 76 bpm 76 bpm [facility] Body temperature 98.4 Fahrenheit 98.4 [facility] Respiratory rate 18 bpm 18 bpm [facility] Body temperature 98.0 Fahrenheit 98.0 [facility] Diastolic blood 73 mmHg 73 mmHg [facility] Systolic blood 108 mmHg 108 mmHg [facility] Heart rate 74 bpm 74 bpm [facility] Diastolic blood 72 mmHg 72 mmHg [facility] Systolic blood 109 mmHg 109 mmHg [facility] Respiratory rate 18 bpm 18 bpm [facility] Heart rate 76 bpm 76 bpm [facility] Body temperature 98.0 Fahrenheit 98.0 [facility] Diastolic blood 75 mmHg 75 mmHg [facility] Systolic blood 108 mmHg 108 mmHg [facility] Heart rate 82 bpm 82 bpm [facility] Diastolic blood 72 mmHg 72 mmHg [facility] Systolic blood 109 mmHg 109 mmHg [facility] Respiratory rate 18 bpm 18 bpm [facility] Heart rate 79 bpm 79 bpm [facility] Body temperature 98.3 Fahrenheit 98.3 [facility] Diastolic blood 69 mmHg 69 mmHg [facility] Systolic blood 101 mmHg 101 mmHg [facility] Heart rate 72 bpm 72 bpm [facility] Diastolic blood 71 mmHg 71 mmHg [facility] Systolic blood 108 mmHg 108 mmHg [facility] Respiratory rate 18 bpm 18 bpm [facility] Heart rate 70 bpm 70 bpm [facility] Body temperature 97.7 Fahrenheit 97.7 [facility] Diastolic blood 70 mmHg 70 mmHg [facility] Systolic blood 107 mmHg 107 mmHg [facility] Heart rate 82 bpm 82 bpm [facility] Diastolic blood 79 mmHg 79 mmHg [facility] Systolic blood 102 mmHg 102 mmHg [facility] Respiratory rate 18 bpm 18 bpm [facility] Heart rate 79 bpm 79 bpm [facility] Body temperature 97.5 Fahrenheit 97.5 [facility] Diastolic blood 71 mmHg 71 mmHg [facility] Systolic blood 116 mmHg 116 mmHg [facility] Respiratory rate 18 bpm 18 bpm [facility] Heart rate 79 bpm 79 bpm [facility] Diastolic blood 75 mmHg 75 mmHg [facility] Systolic blood 115 mmHg 115 mmHg [facility] Respiratory rate 18 bpm 18 bpm [facility] Heart rate 76 bpm 76 bpm [facility] Body temperature 98.2 Fahrenheit 98.2 [facility] Diastolic blood 88 mmHg 88 mmHg [facility] Systolic blood 146 mmHg 146 mmHg [facility] Respiratory rate 18 bpm 18 bpm [facility] Heart rate 67 bpm 67 bpm [facility] Body temperature 97.5 Fahrenheit 97.5 [facility] Diastolic blood 69 mmHg 69 mmHg [facility] Systolic blood 107 mmHg 107 mmHg [facility] Respiratory rate 18 bpm 18 bpm [facility] Heart rate 81 bpm 81 bpm [facility] Body weight 124 lbs 124 lbs [facility] Diastolic blood 71 mmHg 71 mmHg [facility] Systolic blood 105 mmHg 105 mmHg [facility] Respiratory rate 18 bpm 18 bpm [facility] Heart rate 78 bpm 78 bpm [facility] Body temperature 99.1 Fahrenheit 99.1 [facility] Diastolic blood 71 mmHg 71 mmHg [facility] Systolic blood 126 mmHg 126 mmHg [facility] Heart rate 71 bpm 71 bpm [facility] Diastolic blood 76 mmHg 76 mmHg [facility] Systolic blood 108 mmHg 108 mmHg [facility] Deprecated 97 % 97 % [facility] saturation in Hospital Capillary blood by Oximetry Respiratory rate 18 bpm 18 bpm [facility] Heart rate 72 bpm 72 bpm [facility] Body temperature 97.8 Fahrenheit 97.8 [facility] Diastolic blood 67 mmHg 67 mmHg [facility] Systolic blood 103 mmHg 103 mmHg [facility] Heart rate 77 bpm 77 bpm [facility] Diastolic blood 76 mmHg 76 mmHg [facility] Systolic blood 109 mmHg 109 mmHg [facility] Respiratory rate 18 bpm 18 bpm [facility] Heart rate 78 bpm 78 bpm [facility] Body temperature 98.2 Fahrenheit 98.2 [facility] Respiratory rate 18 bpm 18 bpm [facility] Body temperature 98.5 Fahrenheit 98.5 [facility] Diastolic blood 69 mmHg 69 mmHg [facility] Systolic blood 97 mmHg 97 mmHg [facility] Heart rate 75 bpm 75 bpm [facility] Diastolic blood 70 mmHg 70 mmHg [facility] Systolic blood 102 mmHg 102 mmHg [facility] Respiratory rate 18 bpm 18 bpm [facility] Heart rate 79 bpm 79 bpm [facility] Diastolic blood 76 mmHg 76 mmHg [facility] Systolic blood 112 mmHg 112 mmHg [facility] Respiratory rate 18 bpm 18 bpm [facility] Heart rate 71 bpm 71 bpm [facility] Body temperature 98.2 Fahrenheit 98.2 [facility] Diastolic blood 71 mmHg 71 mmHg [facility] Systolic blood 109 mmHg 109 mmHg [facility] Respiratory rate 18 bpm 18 bpm [facility] Heart rate 81 bpm 81 bpm [facility] Diastolic blood 77 mmHg 77 mmHg [facility] Systolic blood 114 mmHg 114 mmHg [facility] Respiratory rate 18 bpm 18 bpm [facility] Heart rate 81 bpm 81 bpm [facility] Body temperature 97.9 Fahrenheit 97.9 [facility] Diastolic blood 76 mmHg 76 mmHg [facility] Systolic blood 115 mmHg 115 mmHg [facility] Respiratory rate 18 bpm 18 bpm [facility] Heart rate 73 bpm 73 bpm [facility] Body temperature 96.4 Fahrenheit 96.4 [facility] Diastolic blood 88 mmHg 88 mmHg [facility] Systolic blood 129 mmHg 129 mmHg [facility] Respiratory rate 18 bpm 18 bpm [facility] Heart rate 73 bpm 73 bpm [facility] Body temperature 96.4 Fahrenheit 96.4 [facility] Diastolic blood 76 mmHg 76 mmHg [facility] Systolic blood 114 mmHg 114 mmHg [facility] Heart rate 77 bpm 77 bpm [facility] Diastolic blood 71 mmHg 71 mmHg [facility] Systolic blood 108 mmHg 108 mmHg [facility] Respiratory rate 18 bpm 18 bpm [facility] Heart rate 77 bpm 77 bpm [facility] Body temperature 97.1 Fahrenheit 97.1 [facility] Diastolic blood 68 mmHg 68 mmHg [facility] Systolic blood 105 mmHg 105 mmHg [facility] Deprecated 99 % 99 % [facility] saturation in Hospital Capillary blood by Oximetry Respiratory rate 18 bpm 18 bpm [facility] Heart rate 80 bpm 80 bpm [facility] Diastolic blood 71 mmHg 71 mmHg [facility] Systolic blood 99 mmHg 99 mmHg [facility] Deprecated 99 % 99 % [facility] saturation in Hospital Capillary blood by Oximetry Respiratory rate 18 bpm 18 bpm [facility] Heart rate 78 bpm 78 bpm [facility] Diastolic blood 75 mmHg 75 mmHg [facility] Systolic blood 107 mmHg 107 mmHg [facility] Respiratory rate 18 bpm 18 bpm [facility] Heart rate 75 bpm 75 bpm [facility] Body temperature 97.9 Fahrenheit 97.9 [facility] Diastolic blood 60 mmHg 60 mmHg [facility] Systolic blood 95 mmHg 95 mmHg [facility] Heart rate 80 bpm 80 bpm [facility] Body temperature 97.4 Fahrenheit 97.4 [facility] Diastolic blood 65 mmHg 65 mmHg [facility] Systolic blood 99 mmHg 99 mmHg [facility] Respiratory rate 16 bpm 16 bpm [facility] Heart rate 76 bpm 76 bpm [facility] Diastolic blood 68 mmHg 68 mmHg [facility] Systolic blood 103 mmHg 103 mmHg [facility] Heart rate 86 bpm 86 bpm [facility] Diastolic blood 54 mmHg 54 mmHg [facility] Systolic blood 99 mmHg 99 mmHg [facility] Respiratory rate 18 bpm 18 bpm [facility] Heart rate 87 bpm 87 bpm [facility] Body temperature 98.9 Fahrenheit 98.9 [facility] Body weight 129 lbs 129 lbs [facility] Diastolic blood 68 mmHg 68 mmHg [facility] Systolic blood 104 mmHg 104 mmHg [facility] Respiratory rate 18 bpm 18 bpm [facility] Heart rate 86 bpm 86 bpm [facility] Body temperature 95.8 Fahrenheit 95.8 [facility] Diastolic blood 68 mmHg 68 mmHg [facility] Systolic blood 103 mmHg 103 mmHg [facility] Respiratory rate 18 bpm 18 bpm [facility] Heart rate 74 bpm 74 bpm [facility] Body temperature 97.5 Fahrenheit 97.5 [facility] Diastolic blood 59 mmHg 59 mmHg [facility] Systolic blood 87 mmHg 87 mmHg [facility] Heart rate 80 bpm 80 bpm [facility] Diastolic blood 65 mmHg 65 mmHg [facility] Systolic blood 98 mmHg 98 mmHg [facility] Respiratory rate 17 bpm 17 bpm [facility] Heart rate 75 bpm 75 bpm [facility] Body temperature 96.9 Fahrenheit 96.9 [facility] Diastolic blood 57 mmHg 57 mmHg [facility] Systolic blood 96 mmHg 96 mmHg [facility] Heart rate 78 bpm 78 bpm [facility] Diastolic blood 60 mmHg 60 mmHg [facility] Systolic blood 85 mmHg 85 mmHg [facility] Respiratory rate 18 bpm 18 bpm [facility] Heart rate 76 bpm 76 bpm [facility] Body temperature 99.0 Fahrenheit 99.0 [facility] Body weight 128 lbs 128 lbs [facility] Diastolic blood 68 mmHg 68 mmHg [facility] Systolic blood 108 mmHg 108 mmHg [facility] Respiratory rate 18 bpm 18 bpm [facility] Heart rate 73 bpm 73 bpm [facility] Body temperature 96.2 Fahrenheit 96.2 [facility] Diastolic blood 64 mmHg 64 mmHg [facility] Systolic blood 96 mmHg 96 mmHg [facility] Respiratory rate 18 bpm 18 bpm [facility] Heart rate 80 bpm 80 bpm [facility] Diastolic blood 59 mmHg 59 mmHg [facility] Systolic blood 92 mmHg 92 mmHg [facility] Respiratory rate 18 bpm 18 bpm [facility] Heart rate 72 bpm 72 bpm [facility] Body temperature 97.5 Fahrenheit 97.5 [facility] Diastolic blood 61 mmHg 61 mmHg [facility] Systolic blood 95 mmHg 95 mmHg [facility] Heart rate 83 bpm 83 bpm [facility] Body weight 125 lbs 125 lbs [facility] Diastolic blood 67 mmHg 67 mmHg [facility] Systolic blood 100 mmHg 100 mmHg [facility] Deprecated 98 % 98 % [facility] saturation in Hospital Capillary blood by Oximetry Respiratory rate 16 bpm 16 bpm [facility] Heart rate 77 bpm 77 bpm [facility] Body temperature 98.2 Fahrenheit 98.2 [facility] Diastolic blood 69 mmHg 69 mmHg [facility] Systolic blood 105 mmHg 105 mmHg [facility] Respiratory rate 18 bpm 18 bpm [facility] Heart rate 74 bpm 74 bpm [facility] Body weight 128 lbs 128 lbs [facility] Diastolic blood 58 mmHg 58 mmHg [facility] Systolic blood 94 mmHg 94 mmHg [facility] Deprecated 97 % 97 % [facility] saturation in Hospital Capillary blood by Oximetry Respiratory rate 18 bpm 18 bpm [facility] Heart rate 81 bpm 81 bpm [facility] Body temperature 99.2 Fahrenheit 99.2 [facility] Diastolic blood 66 mmHg 66 mmHg [facility] Systolic blood 106 mmHg 106 mmHg [facility] Respiratory rate 18 bpm 18 bpm [facility] Heart rate 78 bpm 78 bpm [facility] Diastolic blood 61 mmHg 61 mmHg [facility] Systolic blood 99 mmHg 99 mmHg [facility] Respiratory rate 18 bpm 18 bpm [facility] Heart rate 73 bpm 73 bpm [facility] Body temperature 95.5 Fahrenheit 95.5 [facility] Diastolic blood 66 mmHg 66 mmHg [facility] Systolic blood 97 mmHg 97 mmHg [facility] Respiratory rate 18 bpm 18 bpm [facility] Heart rate 78 bpm 78 bpm [facility] Diastolic blood 68 mmHg 68 mmHg [facility] Systolic blood 100 mmHg 100 mmHg [facility] Respiratory rate 18 bpm 18 bpm [facility] Heart rate 70 bpm 70 bpm [facility] Body temperature 96.1 Fahrenheit 96.1 [facility] Diastolic blood 64 mmHg 64 mmHg [facility] Systolic blood 94 mmHg 94 mmHg [facility] Respiratory rate 18 bpm 18 bpm [facility] Heart rate 92 bpm 92 bpm [facility] Diastolic blood 57 mmHg 57 mmHg [facility] Systolic blood 92 mmHg 92 mmHg [facility] Respiratory rate 18 bpm 18 bpm [facility] Heart rate 89 bpm 89 bpm [facility] Body temperature 97.4 Fahrenheit 97.4 [facility] Diastolic blood 68 mmHg 68 mmHg [facility] Systolic blood 96 mmHg 96 mmHg [facility] Heart rate 88 bpm 88 bpm [facility] Diastolic blood 61 mmHg 61 mmHg [facility] Systolic blood 92 mmHg 92 mmHg [facility] Deprecated 97 % 97 % [facility] saturation in Hospital Capillary blood by Oximetry Respiratory rate 18 bpm 18 bpm [facility] Heart rate 78 bpm 78 bpm [facility] Body temperature 97.8 Fahrenheit 97.8 [facility] Body weight 124 lbs 124 lbs [facility] Diastolic blood 62 mmHg 62 mmHg [facility] Systolic blood 106 mmHg 106 mmHg [facility] Respiratory rate 18 bpm 18 bpm [facility] Heart rate 87 bpm 87 bpm [facility] Diastolic blood 68 mmHg 68 mmHg [facility] Systolic blood 108 mmHg 108 mmHg [facility] Respiratory rate 18 bpm 18 bpm [facility] Heart rate 83 bpm 83 bpm [facility] Body temperature 94.4 Fahrenheit 94.4 [facility] Diastolic blood 66 mmHg 66 mmHg [facility] Systolic blood 100 mmHg 100 mmHg [facility] Respiratory rate 18 bpm 18 bpm [facility] Heart rate 95 bpm 95 bpm [facility] Diastolic blood 74 mmHg 74 mmHg [facility] Systolic blood 108 mmHg 108 mmHg [facility] Respiratory rate 18 bpm 18 bpm [facility] Heart rate 93 bpm 93 bpm [facility] Body temperature 97.8 Fahrenheit 97.8 [facility] Diastolic blood 72 mmHg 72 mmHg [facility] Systolic blood 110 mmHg 110 mmHg [facility] Respiratory rate 18 bpm 18 bpm [facility] Heart rate 88 bpm 88 bpm [facility] Body temperature 97.5 Fahrenheit 97.5 [facility] Heart rate 102 bpm 102 bpm [facility] Diastolic blood 65 mmHg 65 mmHg [facility] Systolic blood 95 mmHg 95 mmHg [facility] Diastolic blood 77 mmHg 77 mmHg [facility] Systolic blood 111 mmHg 111 mmHg [facility] Respiratory rate 18 bpm 18 bpm [facility] Heart rate 100 bpm 100 bpm [facility] Body temperature 97.6 Fahrenheit 97.6 [facility] Body weight 116 lbs 116 lbs [facility] Diastolic blood 71 mmHg 71 mmHg [facility] Systolic blood 107 mmHg 107 mmHg [facility] Deprecated 106 % 106 % [facility] saturation in Hospital Capillary blood by Oximetry Respiratory rate 18 bpm 18 bpm [facility] Heart rate 93 bpm 93 bpm [facility] Body temperature 96.9 Fahrenheit 96.9 [facility] Body weight 116 lbs 116 lbs [facility] Diastolic blood 92 mmHg 92 mmHg [facility] Systolic blood 132 mmHg 132 mmHg [facility] Deprecated 106 % 106 % [facility] saturation in Hospital Capillary blood by Oximetry Respiratory rate 18 bpm 18 bpm [facility] Heart rate 87 bpm 87 bpm [facility] Body temperature 96.9 Fahrenheit 96.9 [facility] Diastolic blood 62 mmHg 62 mmHg [facility] Systolic blood 87 mmHg 87 mmHg [facility] Respiratory rate 18 bpm 18 bpm [facility] Heart rate 101 bpm 101 bpm [facility] Body weight 115 lbs 115 lbs [facility] Diastolic blood 79 mmHg 79 mmHg [facility] Systolic blood 105 mmHg 105 mmHg [facility] Respiratory rate 18 bpm 18 bpm [facility] Heart rate 100 bpm 100 bpm [facility] Body temperature 97.5 Fahrenheit 97.5 [facility] Body weight 116 lbs 116 lbs [facility] Diastolic blood 63 mmHg 63 mmHg [facility] Systolic blood 92 mmHg 92 mmHg [facility] Respiratory rate 18 bpm 18 bpm [facility] Heart rate 102 bpm 102 bpm [facility] Diastolic blood 72 mmHg 72 mmHg [facility] Systolic blood 123 mmHg 123 mmHg [facility] Respiratory rate 18 bpm 18 bpm [facility] Heart rate 100 bpm 100 bpm [facility] Body temperature 98.8 Fahrenheit 98.8 [facility] Diastolic blood 64 mmHg 64 mmHg [facility] Systolic blood 103 mmHg 103 mmHg [facility] Heart rate 127 bpm 127 bpm [facility] Diastolic blood 82 mmHg 82 mmHg [facility] Systolic blood 124 mmHg 124 mmHg [facility] Respiratory rate 18 bpm 18 bpm [facility] Heart rate 112 bpm 112 bpm [facility] Body temperature 98.6 Fahrenheit 98.6 Fahrenhei t [facility] Diastolic blood 69 mmHg 69 mmHg [facility] Systolic blood 98 mmHg 98 mmHg [facility] Deprecated 99 % 99 % [facility] saturation in Hospital Capillary blood by Oximetry Respiratory rate 18 bpm 18 bpm [facility] Heart rate 98 bpm 98 bpm [facility] Body temperature 97.8 Fahrenheit 97.8 Fahrenhei t [facility] Diastolic blood 82 mmHg 82 mmHg [facility] Systolic blood 114 mmHg 114 mmHg [facility] Deprecated 98 % 98 % [facility] Oxygen [facility] saturation in Hospital Capillary blood by Oximetry Respiratory rate 18 bpm 18 bpm [facility] Heart rate 107 bpm 107 bpm [facility] Body temperature 98.2 Fahrenheit 98.2 Fahrenhei t [facility] Diastolic blood 63 mmHg 63 mmHg [facility] Systolic blood 92 mmHg 92 mmHg [facility] Heart rate 113 bpm 113 bpm [facility] Diastolic blood 74 mmHg 74 mmHg [facility] Systolic blood 105 mmHg 105 mmHg [facility] Respiratory rate 19 bpm 19 bpm [facility] Heart rate 109 bpm 109 bpm [facility] Body temperature 98.3 Fahrenheit 98.3 Fahrenh t [facility] Oxygen 98 % 98 % [facility] saturation in ([facility]) Body mass index 20.18 kg/m2 20.18 kg/m2 [facility] (BMI) [Ratio] ([facility]) Body temperature 36.67 Sugar 36.67 Sugar [facility] ([facility]) [facility] 110 /min 110 [facility] Diastolic blood 88 mm[Hg] 88 mm[Hg] [facility] pressure ([facility]) Systolic blood 132 mm[Hg] 132 mm[Hg] [facility] pressure ([facility]) Body weight 56.699 kg 56.699 kg [facility] ([facility]) Body height 167.64 cm 167.64 cm [facility] Oxygen 99 % 99 % [facility] saturation in ([facility]) Body mass index 19.37 kg/m2 19.37 kg/m2 [facility] (BMI) [Ratio] ([facility]) Body temperature 36.61 Sugar 36.61 Sugar [facility] ([facility]) Heart rate 99 /min 99 /min [facility] ([facility]) Diastolic blood 73 mm[Hg] 73 mm[Hg] [facility] pressure ([facility]) Systolic blood 133 mm[Hg] 133 mm[Hg] [facility] pressure ([facility]) Body weight 54.431 kg 54.431 kg [facility] ([facility]) Body height 167.64 cm 167.64 [facility] Oxygen 98 % 98 % [facility] saturation in ([facility]) Body mass index 19.69 kg/m2 19.69 kg/m2 [facility] (BMI) [Ratio] ([facility]) Body temperature 36.17 Sugar 36.17 Sugar [facility] ([facility]) Heart rate 97 /min 97 /min [facility] ([facility]) Diastolic blood 81 mm[Hg] 81 mm[Hg] [facility] pressure ([facility]) Systolic blood 119 mm[Hg] 119 mm[Hg] [facility] pressure ([facility]) Body weight 55.338 kg 55.338 kg [facility] ([facility]) Body height 167.64 cm 167.64 [facility] Oxygen 97 % 97 % [facility] saturation in ([facility]) Body mass index 19.53 kg/m2 19.53 kg/m2 [facility] (BMI) [Ratio] ([facility]) Body temperature 36.67 Sugar 36.67 Sugar [facility] ([facility]) Heart rate 98 /min 98 /min [facility] Diastolic blood 77 mm[Hg] 77 mm[Hg] [facility] pressure ([facility]) Systolic blood 131 mm[Hg] 131 mm[Hg] [facility] Body weight 54.885 kg 54.885 kg [facility] ([facility]) Body height 167.64 cm 167.64 cm [facility] ([facility]) Oxygen 100 % 100 % [facility] saturation in ([facility]) Body mass index 19.69 kg/m2 19.69 kg/m2 [facility] (BMI) [Ratio] ([facility]) Body temperature 36.67 Sugar 36.67 Sugar [facility] ([facility]) Heart rate 107 /min 107 /min [facility] ([facility]) Diastolic blood 93 mm[Hg] 93 mm[Hg] [facility] pressure ([facility]) Systolic blood 139 mm[Hg] 139 mm[Hg] [facility] Body weight 55.338 kg 55.338 kg [facility] ([facility]) Body height 167.64 cm 167.64 cm [facility] ([facility]) ID Date Data Source [id number] 03/02/2020 01:50:59 PM T [facility] Name Value Range Interpretation Code Description Data Source(s) Body weight Measured 135 lb 135 lb [facility] Body weight Measured 134 lb 134 lb [facility] Body weight Measured 124 lb 124 lb [facility] Body weight Measured 129 lb 129 lb [facility] Body weight Measured 128 lb 128 lb [facility] Body weight Measured 125 lb 125 lb [facility] Body weight Measured 128 lb 128 lb [facility] Body weight Measured 124 lb 124 lb [facility] Body weight Measured 116 lb 116 lb [facility] Body weight Measured 115 lb 115 lb [facility] Body weight Measured 116 lb 116 lb [facility] Patient Treatment Plan of Care Planned Activity Planned Date Details Description Data Source (s) Mirtazapine 30 MG Oral 03/15/2020 12:00:00 [facility] ([facility] Tablet [Remeron] AM EDT [facility]) Omeprazole 40 MG Delayed 03/15/2020 12:00:00 [facility] ([facility] Release Oral Capsule [facility]) Haldol Decanoate 100 03/15/2020 12:00:00 NEXT[facility] ([facility] mg/mL intramuscular AM [facility] solution [place]) 24 HR metoprolol 03/15/2020 12:00:00 NEXT GEN ([facility] succinate 50 MG Extended [facility] Release Oral Tablet [place]) [Toprol] benztropine mesylate 1 MG 03/15/2020 12:00:00 NEXT[facility] ([facility] Oral Tablet [facility]) Trazodone Hydrochloride 03/15/2020 12:00:00 NEXT[facility] ([facility] 150 MG Oral Tablet [facility]) Clozaril 50 mg tablet 03/15/2020 12:00:00 NEXTGEN ([facility]) POLYETHYLENE GLYCOL 3350 11/13/2018 12:00:00 NEXTGEN ([facility] 142 MG/ML Oral Solution [facility] [Miralax] [place]) Clotrimazole 10 MG/ML 11/13/2018 12:00:00 NEXTGEN ([facility] Topical Cream [Lotrimin] [facility]) Clozapine 100 MG Oral 11/13/2018 12:00:00 NEXTGEN ([facility] Tablet [facility]) Levetiracetam 750 MG Oral 08/14/2018 12:00:00 NEXTGEN ([facility] Tablet [Keppra] [facility]) benztropine mesylate 1 MG 08/14/2018 12:00:00 NEXTGEN ([facility] Oral Tablet [facility]) 24 HR Bupropion 08/14/2018 12:00:00 NEXTG EN ([facility] Hydrochloride 300 MG [facility] Extended Release Oral [place] ) Tablet [Wellbutrin] Trazodone Hydrochloride 08/14/2018 12:00:00 NEXTGEN ([facility] [address] [facility]) Metoprolol Tartrate 25 MG 08/14/2018 12:00:00 NEXTGEN ([facility] Oral Tablet [facility]) Clozapine 100 MG Oral 08/14/2018 12:00:00 NEXTGEN ([facility] Tablet [facility]) Risperidone 2 MG Oral 11/13/2017 12:00:00 NEXTGEN ([facility] Tablet [Risperdal] [facility]) Metoprolol Tartrate 25 MG 04/13/2016 12:00:00 NEXTGEN ([facility] Oral Tablet [facility]) Levetiracetam 1000 MG 12/07/2015 12:00:00 NEXTGEN ([facility] Oral Tablet [Keppra] [facility]) Trazodone Hydrochloride 11/29/2015 12:00:00 NEXTGEN ([facility] 100 MG Oral Tablet [facility]) Sucralfate 100 MG/ML Oral 11/29/2015 12:00:00 NEXTGEN ([facility] Suspension [Carafate] [facility]) Esomeprazole 40 MG 11/29/2015 12:00:00 NE XTGEN ([facility] Delayed Release Oral [facility] Capsule [Nexium] [place]) 12 HR Bupropion 11/29/2015 12:00:00 NEXTG EN ([facility] Hydrochloride 150 MG [facility] Extended Release Oral [place] ) Tablet [Wellbutrin] Clozapine 200 MG Oral 11/29/2015 12:00:00 NEXTGEN ([facility] Tablet [facility]) Clozapine 100 MG Oral 11/29/2015 12:00:00 NEXTGEN ([facility] Tablet [facility])
[2020-04-01 07:32] VITALS: TEMP 98.2; BMI 20.4
[2020-04-01] MEDS ORDERED: LACTATED RINGERS SOLUTION 1,000 ML IV SCH (08:00)
[2020-04-01] MEDS ORDERED: KETAMINE HCL 500 MG/10 ML VIAL ONE (09:05)
[2020-04-01] MEDS ORDERED: PROPOFOL 20 ML ONE (09:05)
[2020-04-01 10:49] VITALS: BP 126/81; PULSE 73
== END 2020-04-01 10:30 | disposition home or self-care (01) ==
LOC: FECT 06:31
PROVIDERS: ATTEND Psychiatry & Neurology Psychiatry
PROC: GZB0ZZZ Electroconvulsive Therapy, Unilateral-Single Seizure (ICD-10-PCS; principal; 2020-04-01 07:30)
DX: F33.2 Major depressive disorder, recurrent severe without psychotic features (principal)
CPT/HCPCS: 90870; 94760

== ENCOUNTER 2020-04-08 09:35 | Day surgery (SDC) | payer OTHER ==
[~2020-04-08 09:35] MED LIST changes: +ACETAMINOPHEN 325 MG TABLET (FP) PO PRN; -KETAMINE HCL 500 MG/10 ML VIAL ONE; -MIDAZOLAM HCL 2 MG/2 ML SINGLE DOSE VIAL ONE; +PROMETHAZINE HCL 25 MG/1 ML VIAL IVPUSH PRN
[2020-04-08 10:02] VITALS: BMI 20.3
[2020-04-08] MEDS ORDERED: KETAMINE HCL 500 MG/10 ML VIAL ONE (11:04)
[2020-04-08] MEDS ORDERED: PROPOFOL 20 ML ONE (11:16)
[2020-04-08] MEDS ORDERED: ONDANSETRON 4 MG/2 ML VIAL ONE (11:18)
[2020-04-08 11:43] VITALS: TEMP 98.2
[2020-04-08 12:41] VITALS: BP 118/87; PULSE 79
== END 2020-04-08 13:00 | disposition home or self-care (01) ==
LOC: FECT 09:35
PROVIDERS: ATTEND Psychiatry & Neurology Psychiatry
PROC: GZB4ZZZ Other Electroconvulsive Therapy (ICD-10-PCS; principal; 2020-04-08 07:30)
DX: F32.9 Major depressive disorder, single episode, unspecified (principal)
CPT/HCPCS: 90870; 94760

== ENCOUNTER 2020-04-15 06:13 | Day surgery (SDC) | payer OTHER ==
[2020-04-11 17:03] VITALS: BMI 37.1
--- OUTSIDE RECORDS SUMMARY | 2020-04-15 06:21 | XMS ---
:1980 Author Organization [facility] Care Team Providers Name Role Phone RAMONITA WYMAN MD Unavailable Unavailable Frankie Unavailable [phone] TREVIN AMMIR Unavailable Unavailable MD BENTLEY Unavailable Unavailable MANDAEN, HUMAYUN Unavailable Unavailable Coon Unavailable Unavailable Coon Unavailable Unavailable Coon Unavailable Unavailable Coon Unavailable Unavailable Coon Unavailable Unavailable Coon Unavailable Unavailable COON RODRIGO B Unavailable Unavailable TRUDY VALENTE MD Unavailable Unavailable HHCCC Unavailable Unavailable MD LC Unavailable Unavailable [id number] Unavailable Unavailable KEILA REYNOSO Unavailable Unavailable LC Demarco Unavailable Unavailable GUPTA, HYDRAULIC RIVETER Unavailable Unavailable Trevin Unavailable [phone] Trevin Unavailable [phone] Trevin [...] is protected by Article 27-F of the [facility] Public Health law. If you continue you may haveaccess to information: Regarding HIV / AIDS; Provided by facilities licensed or operated by the [facility] Office of Mental Health; or Provided by the [facility] Office for People With Developmental Disabilities. If such information is present, then the following [facility] mandated warning applies: This information has been [...] law may result in a fine or snf sentence or both. A general authorization for the release of medical or other information is NOT sufficient authorization for further disclosure. Allergies and Adverse Reactions Type Description Substance Reaction Status Data Source(s ) Drug allergy haloperidol haloperidol Muscle pain [facility] Corporati on Drug allergy No Known Drug No Known Drug [facility] Allergies Allergies [facility] Corporati on Food allergy Seafood Seafood [facility] Corporati on Propensity to Propensity to Propensity to NEXTG EN ([facility] adverse adverse reactions adverse [facility] Medical reactions (disorder) reactions [place]) (disorder) (disorder) Family History Family Member Family Member Family Member Date of Description Data Source(s) Name Gender Status Status Unknown Male Problem 11/13/2017 NEXTGEN ([facility] (finding) 12:00:00 AM [facility] Medic al EDT [place]) Encounters Encounter Providers Location Date Indications Data Source(s) Outpatient [facility] 0 Medical 12:04:00 Center PM EST Outpatient [facility] 0 Medical 12:00:00 Center AM EST Attender: [place] LIZETTE Rodrigo [facility] 0 (Saint 11:04:00 [place] AM EDT - Medical [place]) 0 11:04:00 AM EDT Attender: [place] LIZETTE [facility] ([facility] 12:46:00 [place] PM EDT - Medical [place]) 0 12:46:00 PM EDT Outpatient [facility] 0 Medical 01:11:00 Center PM EDT Outpatient Attender: [facility] RODRIGO COCHRISTINA 0 Medical RODRIGO 11:47:00 Center BAdmitter: AM EDT RODRIGO WALLACE BReferrer: RODRIGO Matute OutpatientOFFICE/OU Attender: [place] MARLEN XTGEN TPATIENT VISIT, [facility] Rodrigo Azchristina [place] 0 ( [facility] 11:47:00 [place] AM EDT - Medical [place]) 0 11:47:00 AM EDT Outpatient [facility] 0 Medical 12:00:00 Center AM EDT Outpatient [facility] 0 Medical 12:24:00 Center PM EDT Outpatient Attender: [facility] RODRIGO COCHRISTINA 0 Wayne RODRIGO 12:19:00 Center BAdmitter: PM EDT RODRIGO WALLACE BReferrer: RODRIGO Matute OutpatientWell Attender: [place] NEXTGEN Rodrigo [place] 0 ([facility] Est,18-39years 12:19:00 [place] PM EDT - Medical Center) 0 12:19:00 PM EDT Attender: [place] TERESA Rodrigo Carcamo [place] 0 (Saint 09:05:00 [place] AM EDT - Medical [place]) 0 09:05:00 AM EDT Outpatient [facility] 0 Medical 12:00:00 Center AM EDT Attender: [place] TERESAGEN Rodrigo Carcamo [place] 0 (Saint 11:56:00 [place] AM EDT - Medical [place]) 0 11:56:00 AM EDT Outpatient Attender: [facility] 0 [facility] 07:01:00 [facility] EDT MAdmitter: GEORGE VAZQUEZ MReferrer: GEORGE Demarco Outpatient Attender: [facility] 0 ([facility] 12:57:38 [facility] EDT Collaborative ) Patient admitted. Inpatient Attender: RAMONITA ST- 11/15/2019 03:16:00 [facility] AL[facility] PM EDT - 02/16/2020 [facility] 10:48:00 PM EDT Patient discharged. Outpatient [facility] 11/15/2019 02:10:00 PM EDT - [address] [place] [address] 04:57:00 PM EDT Patient discharged. Outpatient Attender: [address] 10/13/2019 02:55:09 PM [facility] ([facility] EDT [facility]) Patient admitted. Outpatient Attender: [address] 10/02/2019 07:07:41 AM [facility] ([facility] EDT [facility]) Patient admitted. Outpatient Attender: GEORGE Kaur 09/29/2019 01:06:00 [facility] LC VZAQUEZ EDT Center MAdmitter: GEORGE VAZQUEZ MReferrer: GEORGE Demarco Outpatient Attender: ALVARO 09/07/2019 01:27:00 R56.9 [facility] MANDAEN, [facility] Hospital[facility]Referrer: Yvon VALENTE rpmercedez YATES MD R56.9 Outpatient Attender: 09/03/2019 [facility] GEORGE 10:10:00 AM [facility] LC VAZQUEZ MAdmitter: GEORGE VAZQUEZ MReferrer: GEORGE Demarco Outpatient Attender: Natasha 08/05/2019 [facility] GEORGE 11:51:00 AM [facility] LC VAZQUEZ MAdmitter: GEORGE VAZQUEZ MReferrer: GEORGE Demarco Outpatient Attender: 07/10/2019 [facility] GEORGE 07:01:00 AM [facility] Medical Center LC Gamblemitter: GEORGE VAZQUEZ MReferrer: GEORGE Demarco Attender: [place] 06/19/2019 NEXTGEN ([facility] 01:26:00 PM EST [facility] - 06/19/2019 Center) 01:26:00 PM EST Outpatient 06/18/2019 [facility] 03:27:00 PM EST Medical C enter Outpatient Attender: 06/18/2019 [facility] 10:31:00 AM EST [facility] BAdmitter: RODRIGO WALLACE BReferrer: RODRIGO Matute OutpatientOFFICE Attender: [place] 06/18/2019 NEXT EN ([facility] 10:31:00 AM EST [facility] Medical VISIT, EST - 06/18/2019 Center) 10:31:00 AM EST Attender: [place] 06/18/2019 NEXTGEN ([facility] 09:07:00 AM EST [facility] - 06/18/2019 [place]) 09:07:00 AM EST Outpatient 06/18/2019 [facility] 12:00:00 AM EST Medical C enter Outpatient Attender: 06/15/2019 [facility] GEORGE 09:28:00 AM [facility] Medical [place] LC Gamblemitter: GEORGE VAZQUEZ MReferrer: GEORGE Demarco Outpatient 06/10/2019 [facility] 10:29:00 AM EST Medical C enter Outpatient 06/10/2019 [facility] 12:00:00 AM EST Medical C enter Outpatient Attender: 05/18/2019 [facility] GEORGE 12:30:00 PM [facility] Medical Center LC Gamblemitter: GEORGE VAZQUEZ MReferrer: GEORGE Demarco Outpatient Attender: 04/30/2019 R13.1 KEILA Vargas 08:46:00 AM EDT [address] [place] [address] Nilam.Admitter: Care Corporat ion KEILA REYNOSOReferrer: KEILA REYNOSO R13.10 Outpatient Attender: EDGARDO 04/30/2019 06:00:00 R13.10 [facility] [address] KEILA DoddAdmitter: AM EDT Health C are KEILA REYNOSOReferrer: KEILA REYNOSO R13.10 Outpatient Attender: 04/22/2019 [facility] GEORGE PLATT 07:01:00 [facility] [place] MAdmitter: GEORGE VAZQUEZ MReferrer: GEORGE Demarco Outpatient Attender: 03/26/2019 [facility] CEASAR LC 07:01:00 AM EDT [facility] [place] MAdmitter: GEORGE VAZQUEZ MReferrer: GEORGE Demarco Outpatient Attender: RODRIGO Kaur 01/07/2019 [facility] 10:15:00 AM EDT Medica l BAdmitter: [place] RODRIGO WALLACE BReferrer: RODRIGO Matute OutpatientOFFICE/ Attender: Rodrigo [place] 01/07/2019 [facility] OUTPATIENT VISIT, [facility] 10:15:00 AM EDT - ([facility] 01/07/2019 [facility] 10:15:00 AM EDT Medical Center) Outpatient 01/07/2019 [facility] 09:40:00 AM EDT Medical Center Attender: Rodrigo [place] 01/07/2019 [facility] 08:42:00 AM EDT - ([facility] 01/07/2019 [facility] 08:42:00 AM EDT Medical Center) Outpatient 01/07/2019 [facility] 12:00:00 AM EDT Medical Center Outpatient 01/01/2019 [facility] 10:56:00 AM EDT Medical Center Attender: Rodrigo [place] 01/01/2019 [facility] 08:52:00 AM EDT - ([facility] 01/01/2019 [facility] 08:52:00 AM EDT Medical Center) Outpatient 01/01/2019 [facility] 12:00:00 AM EDT Medical Center Outpatient Attender: 12/29/2018 [facility] GEORGE PLATT 07:01:00 AM EDT [facility] MAdmitter: GEORGE VAZQUEZ MReferrer: GEORGE Demarco Outpatient 12/22/2018 [facility] 10:48:13 AM EDT ([facility] ) Patient admitted. Outpatient 11/26/2018 01:08:09 PM EDT [facility] ([facility]) Patient admitted. Outpatient 11/26/2018 [facility] 11:25:00 AM EDT Medical Center Outpatient Attender: 11/26/2018 [facility] 09:51:00 AM EDT [facility] BAdmitter: RODRIGO WALLACE BReferrer: RODRIGO Matute OutpatientOFFICE/OUT Attender: [place] 11/26/2018 N EXTGEN PATIENT VISIT, [facility] 09:51:00 AM EDT ([facility] 11/26/2018 [facility] 09:51:00 AM EDT Medical [place]) Attender: [place] 11/26/2018 [facility] 09:29:00 AM EDT ([facility] 11/26/2018 [facility] 09:29:00 AM EDT Medical Center) Outpatient 11/26/2018 [facility] 12:00:00 AM EDT Medical Center Attender: [place] 11/21/2018 [facility] 09:27:00 AM EDT ([facility] 11/21/2018 [facility] 09:27:00 AM EDT Medical Center) Outpatient 11/13/2018 [facility] 12:04:00 PM EDT Medical Center Outpatient 11/13/2018 [facility] 11:50:00 AM EDT Medical Center Attender: [place] 11/13/2018 [facility] 11:22:00 AM EDT ([facility] 11/13/2018 [facility] 11:22:00 AM EDT Medical Center) Attender: [place] 11/13/2018 [facility] 10:57:00 AM EDT ([facility] 11/13/2018 [place] 10:57:00 AM EDT Medical Center) Outpatient Attender: DASHAWN 11/13/2018 [facility] Bryce guerineldon ZHONG 10:18:00 AM EDT Medical AMMIRAdmitter: Center AMMIR TREVIN AMMIRReferrer: AMZENYR TREVIN AMMIR OutpatientWell Attender: [facility] 11/13/2018 [facility] 10:18[facility]00 AM EDT ([facility],18-39years - 11/13/2018 [facility] 10:18:00 AM EDT Medical Center) Outpatient 11/13/2018 [facility] 12:00:00 AM EDT Medical Center Attender: [place] 10/16/2018 [facility] 10:30:00 AM EDT ([facility] 10/16/2018 [facility] 10:30:00 AM EDT Medical Center) Outpatient Attender: 10/02/2018 [facility] VAZQUEZ 07:01:00 AM EDT [facility] GEORGE Gamblemitter: GEORGE VAZQUEZ MReferrer: GEORGE Demarco Attender: [place] 09/26/2018 [facility] 11:08:00 AM EDT ([facility] 09/26/2018 [facility] 11:08:00 AM EDT Medical Center) Attender: [place] 09/03/2018 [facility] 01:29:00 PM EST ([facility] 09/03/2018 [place] 01:29:00 PM [facility] Medical [place]) Attender: [place] 09/02/2018 [facility] 10:43:00 AM EST ([facility] 09/02/2018 [place] 10:43:00 AM [facility] Medical [place]) Attender: [place] 08/29/2018 [facility] 09:36:00 AM EST ([facility] 08/29/2018 [place] 09:36:00 AM [facility] Medical [place]) Attender: [place] 08/25/2018 [facility] 09:40:00 AM EST ([facility] 08/25/2018 [place] 09:40:00 AM [facility] Medical Center) OutpatientOFFICE/OUT Attender: [facility] [place] 08/14/2018 N EXTGEN PATIENT VISIT, [facility] 11:00:00 AM EST ([facility] - 08/14/2018 [place] 11:00:00 AM [facility] Medical [place]) Attender: [place] 08/08/2018 [facility] 03:08:00 PM EST (Oskar t - 08/08/2018 [place] 03:08:00 PM [facility] Medical [place]) Attender: [place] 08/07/2018 [facility] 02:46:00 PM EST ([facility] 08/07/2018 [place] 02:46:00 PM [facility] Medical [place]) Attender: [place] 05/23/2018 [facility] 02:42:00 PM EST ([facility] 05/23/2018 [place] 02:42:00 PM [facility] Medical [place]) OutpatientOFFICE/OUT Attender: [place] 11/18/2017 N EXTGEN PATIENT VISIT, [facility] 10:18:00 AM EDT ([facility] 11/18/2017 [place] 10:18:00 AM EDT [facility]) OutpatientWell Attender: [place] 11/13/2017 [facility] Visit, [facility] 10:26:00 AM EDT ([facility],18-39years - 11/13/2017 [facility] 10:26:00 AM EDT Medical [place]) Attender: 05/15/2016 [facility] [id number] 04:23:00 PM EDT Vi ncents .[id number] [facility]_6766 Outpatient Attender: SWATHI 04/20/2016 [facility] GEORGE 10:38:00 AM EDT Shayna LOVINGitter: [facility] Attender: 04/20/2016 [facility] [id number] 10:38:00 AM EDT Vi ncents .[id number] [facility]_6766 Attender: Robin [facility] 04/13[facility]2016 [facility] 03:01:00 PM EDT (04/13/2016 [place] 03:01:00 PM EDT Medical Center) Attender: 03/13/2016 [facility] [id number] 01:09:00 PM EDT Vi ncents .[id number] [facility]_6766 Attender: 03/12/[id number] 09:17:00 AM EDT Vi ncents .[id number] [facility] NETSWARWICK_6766 Attender: 02/23/[id number] 09:00:00 AM EDT Vi ncents .[id number] [facility] NETSWARWICK_6766 Attender: 02/03/[id number] 11:55:00 AM EDT Vi ncents .[id number] [facility] NETSWARWICK_6766 Attender: 01/17/[id number] 07:10:00 PM EDT Vi ncents .[id number] [facility]_6766 Attender: 01/17/[id number] 04:13:00 PM EDT Vi ncents .[id number] [facility]_6766 OutpatientOFFICE/OUT Attender: Robin [facility] Herman 12/15/2015 [facility] PATIENT VISIT, [facility] 10:59:00 AM EDT (12/15/2015 [place] 10:59:00 AM EDT [facility]) OutpatientOFFICE/OUT Attender: Robin [facility] 11:06:00 AM EDT (12/13/2015 [place] 11:06:00 AM EDT [facility]) OutpatientOFFICE/OUT Attender: Abram [facility] Herman 12/07/2015 [facility] PATIENT VISIT, [facility] 11:35:00 AM EDT ([facility]: - 12/07/2015 [place] Zhong 11:35:00 AM EDT Medical [place]) OutpatientOFFICE/OUT Attender: Robin [facility] Herman [facility], [facility] 11:27:00 AM EDT (11/29/2015 [place] 11:27:00 AM [facility]) Attender: 03/25/2015 [place] [id number] 03:14:00 PM EDT Vi ncents .[id number] [facility]_6766 Attender: 01/27/2015 [facility] [id number] 10:44:00 AM EDT Vi ncents .[id number] [facility] [place]_6766 Attender: 12/24/2013 [facility] [id number] 02:17:00 PM EDT Vi ncents .[id number] [facility] [place]_6766 Attender: 07/22/2013 [facility] [id number] 04:23:00 PM EST Vi ncents .[id number] [facility] [place]_6766 Attender: 10/01/2003 [facility] [id number] 07:00:00 PM EST Vi ncents .[id number] [facility] [place]_6766 Attender: 10/01/2003 [place] [id number] 06:00:00 PM EST Vi ncents .[id number] [facility] [place]_6766 Attender: 10/01/2003 [facility] [id number] 03:00:00 PM EST Vi ncents .[id number] [facility]_6766 Immunizations Vaccine Date Status Description Data Source(s) New in 2011. IIV4 06/18/2019 completed Influenza, Injectable, NEXTGEN ([facility] 12:00:00 AM EST Quadrivalent [facility]) Source: New Immunization Record As of March 1999, 06/18/2019 12:00:00 completed Hep B, adult , 3 NEXTGEN (Saint a 2-dose hepatitis B AM EST dose [facility] for [place]) adolescents (11-15 year olds) was FDA approved for [employer]'s Recombivax HB adult formulation. Use code 43 for the 2-dose. This code should be used for any use of standard adult formulation of hepatitis B vaccine. Source: New Immunization Record As of March 1999, 01/07/2019 12:00:00 completed Hep B, adult , 3 NEXTGEN (Saint a 2-dose hepatitis B AM EDT dose [facility] Medical schedule for [place]) adolescents (11-15 year olds) was FDA approved for [employer]'s Recombivax HB adult formulation. Use code 43 for the 2-dose. This code should be used for any use of standard adult formulation of hepatitis B vaccine. Source: New Immunization Record As of March 1999, a 11/26/2018 12:00:00 completed Hep B, Danilo lt NEXTGEN (Saint 2-dose hepatitis B AM EDT [facility] schedule for Center) adolescents (11-15 year olds) was FDA approved for [employer]'s Recombivax HB adult formulation. Use code 43 for the 2-dose. This code should be used for any use of standard adult formulation of hepatitis B vaccine. Source: New Immunization Record Hep A, adult completed HepA NEXTGEN ([facility]) Source: New Immunization Record Medications Medication Brand Start Product Dose Route Administrative Pharmacy [facility] Indications Reaction Description Data Name Date Form Instructions Instructions Source(s) Trazodone trazod 03/15/ active take 2 NE XTGEN Hydrochlori one 2020 tablet by (Sa int de 150 MG 150 mg 12:00: oral route [place] Oral Tablet tablet 00 AM every day at [facility]) 150 mg tablet Omeprazole omepra .00 ORAL active take 1 N EXTGEN 40 [...] [Clozaril] Medical Tablet EDT Center) Mirtazapine Remero .00 ORAL active mirtaza pine NEXTGEN 30 MG Oral n 30 2020 {tabl 30 MG Oral (S aint Tablet mg 12:00: et} Tablet [place] [Remeron] tablet 00 AM [Remeron] Me dical Remeron 30 EDT Center) mg tablet Haldol 1 ML .00 INTRAM active 1 ML NEXTGEN Decanoate halope [...] benztr 03/15/ active take 1 NEXTGEN mesylate 2019 tablet by (Sa int MG Oral [...] Benztr ORAL complet Benztr opine [facility] mesylate 2019 Table ed Mesylate - 1 [facility] [...] Benztr ORAL complet Benztr opine [facility] mesylate 2019 Table ed Mesylate - 1 [facility] [...] 17 Saint E GLYCOL X - 17 2020 Unit ed GM/1 Dose [facility] 3350 [...] HR Trazodone traZOD ORAL [facility] hydrochlorid [facility] de 150 [...] ORAL complet Benztr opine [facility] mesylate opine 2018 Table ed Mesylate - 1 [facility] MG Oral Mesyla 12:00: t MG ORAL Hospi alia Tablet te - 1 00 AM Tablet MG EDT ORAL Tablet POLYETHYLEN MiraLA ORAL complet MiraLA [...] ORAL complet Benztr opine [facility] mesylate opine 2018 Table ed Mesylate - 1 [...] [Miralax] Powder for Soluti on Clozapine clozap complet take 1 i n NEXTGEN 100 [...] (Saint Cream 1 % topical EDT Topical Creshruti [place] [Lotrimin] cream [Lotrimin] Me dical Lotrimin [facility]) (clotrimazole) 1 % topical cream POLYETHYLENE Miralax 17 gram 11/13/2018 1 ORAL active polyethylene NEXTGEN GLYCOL 3350 142 oral powder 12:00:00 AM . glycol 3350 (Saint MG/ML Oral packet EDT 0 95154 MG Bryce ephs Solution 0 Powder for [...] [facility] Capsule Liquid Filled EST a Capsule, [facility] [Colace] p Liquid Filled s u l e 24 HR Nicotine Nicotine - 7 08/21/2018 1 [facility] Nicotine - 7 0.292 MG/HR MG/24 HR 12:00:00 AM P MAL MG /24 HR [facility] Transdermal TRANSDERMAL EST a [facility] Patch Patch, Extended t Patch, Release c Extended h Release Clozapine 100 clozapine 100 08/14/2018 completed take 1 in the NEXTGEN MG Oral Tablet mg tablet 12:00:00 AM morning, 1 at (Saint clozapine 100 EST noon , and 6 [place] mg tablet at night Medica l [place]) given by Dr andrade Metoprolol metoprolol 08/14/2018 completed take 1 tablet NEXTGEN Tartrate 25 MG tartrate 25 mg 12:00:00 AM by mouth once (Saint Oral Tablet tablet EST a day with [facility] metoprolol food for Medic al tartrate 25 mg tachycardi a. [place]) tablet May cause drowsiness or dizziness. take at night Trazodone trazodone 150 08/14/2018 completed take 2 tablet NEXTGEN Hydrochloride mg tablet 12:00:00 AM by oral route (Saint 150 MG Oral EST every day at [facility] Tablet night Medical trazodone 150 [place] ) mg tablet 24 HR Wellbutrin XL [...] Oral Tablet EST let} 2 times every [place] benztropine 1 day Medica l mg tablet [place]) Levetiracetam Keppra 750 mg 08/14/2018 1.00 ORAL active levetiracetam NEXTGEN 750 MG Oral tablet 12:00:00 AM {tab 750 MG Oral (Saint Tablet EST let} Tablet [place] [Keppra] [Keppra] Medical Keppra 750 mg [place] ) tablet 24 HR Nicotine Nicotine - 21 06/26/2018 1 JOY completed Nicotine - 21 [facility] 0.875 MG/HR MG/24 HR 12:00:00 AM Patc SDER MG /24 HR [facility] Transdermal TRANSDERMAL EST h [facility] Patch Patch, Patch, Extended Extended Release Release benztropine Benztropine 06/26/2018 1 ORAL completed Benztropine [facility] mesylate 1 [...] /24 HR [facility] Transdermal TRANSDERMAL EST h [facility] Patch Patch, Patch, Extended Extended Release Release [...] /24 HR [facility] Transdermal TRANSDERMAL EDT h [facility] Patch Patch, Patch, Extended Extended Release Release [...] /24 HR [facility] Transdermal TRANSDERMAL EDT h [facility] Patch Patch, Patch, Extended Extended Release Release [...] /24 HR [facility] Transdermal TRANSDERMAL EDT h [facility] Patch Patch, Patch, Extended Extended Release Release 24 HR Wellbutrin XL 03/19/2018 1 ORAL completed Wellbutrin XL Bupropion - 300 MG ORAL 12:00:00 AM [...] /24 HR [facility] Transdermal TRANSDERMAL EDT h [facility] Patch Patch, Patch, Extended Extended Release Release 24 HR Nicotine Nicotine - 21 02/05/2018 1 JOY completed Nicotine - 21 [facility] 0.875 MG/HR MG/24 HR 12:00:00 AM Patc SDER MG /24 HR [facility] Transdermal TRANSDERMAL EDT h [facility] Patch Patch, Patch, Extended Extended Release Release 24 HR Nicotine Nicotine - 21 01/07/2018 1 JOY completed Nicotine - 21 [facility] 0.875 MG/HR MG/24 HR 12:00:00 AM Patc SDER MG /24 HR [facility] Transdermal TRANSDERMAL EDT h [facility] Patch Patch, Patch, Extended Extended Release Release [...] /24 HR [facility] Transdermal TRANSDERMAL EDT h [facility] Patch Patch, Patch, Extended Extended Release Release [...] /24 HR [facility] Transdermal TRANSDERMAL EDT h [facility] Patch Patch, Patch, Extended Extended Release Release [...] /24 HR [facility] Transdermal TRANSDERMAL EDT h [facility] Patch Patch, Patch, Extended Extended Release Release [...] MG ORAL [facility] Tablet EDT et Tablet [facility] Trazodone traZODone 11/11/2017 1 ORAL completed traZODone [...] ORAL [facility] Tablet EST [facility] Trazodone traZODone 07/03/2017 1 ORAL completed traZODone [facility] Hydrochloride [...] ORAL [facility] Tablet [facility] Clozapine 100 cloZAPine - 04/10/2017 6 ORAL completed cloZAPine - [facility] MG Oral Tablet 100 MG ORAL 12:00:00 AM Tabl 100 MG ORAL [facility] Tablet [facility] Trazodone traZODone 04/10/2017 1 ORAL completed traZODone [facility] Hydrochloride [...] Center) mg tablet given by neurologsit- Dr Cedeno Trazoquane trazodone 11/29/2015 1 {tbl} ORAL completed take [...] -release 150 MG M edical Tablet Extended Center) [Wellbutrin] Release Oral Wellbutrin SR Tablet 150 [...] clozapine every day Medic al 100 mg Center) tablet given by Dr andrade Clozapine 200 clozapine 200 11/29/2015 active take 2 NEXTGEN MG Oral Tablet mg tablet 12:00:00 AM tablet by ( clozapine 200 EDT oral route Shirley mg tablet at bedtime [facility]) by dr rick Insurance Providers Payer name Policy type Policy ID Covered Covered alliance party's Policy P ned / Coverage alliance party ID relationship to [employer] ormation type [place] MVP MEDICAID [id number] SP [id number] HMO MVP MEDICAID [id number] SP [id number] O MVP/HHP [id number] self [id number] [facility] HEALTH [id number] SP [id number] CARE P HEALTH [id number] SP [id number] CARE MVP/HHP O [id number] 01 [id number] O MV MEDICAID [id number] SP [id number] [facility] [id number] SP [id number] Options MVP SELF PAY 00 Self 00 MEDICAID INP [id number] Self [id number] P PSYCH [facility] MVP [id number] Self [id number] HARMONIOUS [place] [id number] SP [id number] HEALTH-MVP [facility] HEALTH [id number] SP [id number] CARE [facility] MVP [id number] Self [id number] HARMONIOUS HEALTHCARE SELF PAY 0 Self 0 MEDICAID OP [id number] Self [id number] [facility] [id number] Self [id number] HARMONIOUS [facility] [id number] self [id number] MVP/HHP O [id number] 01 [id number] MVP/HHP O [id number] 01 [id number] Problems, Conditions, and Diagnoses Code Display Name Description Problem Effective Data Type Dates Source(s) 80560236 Alcohol dependence Alcohol dependence Complaint 6 [facility] (disorder) 12:00:00 PM [facility] [id number] Depressive disorder Depressive disorder Complaint 016 [facility] (disorder) 12:00:00 PM [facility] [id number] Schizoaffective Schizoaffective Complaint 01/17/2016 Oskar t disorder (disorder) disorder 12:00:00 PM [facility] [id number] Alcohol dependence Alcohol dependence Complaint 6 [facility] (disorder) 12:00:00 PM [facility] [id number] Depressive disorder Depressive disorder Complaint 016 [facility] (disorder) 12:00:00 PM [facility] [id number] Schizoaffective Schizoaffective Complaint 01/17/2016 Oskar t disorder (disorder) disorder 12:00:00 PM [facility] [id number] Alcohol dependence Alcohol dependence Complaint 6 [facility] (disorder) 12:00:00 PM [facility] [id number] Depressive disorder Depressive disorder Complaint 016 [facility] (disorder) 12:00:00 PM [facility] [id number] Schizoaffective Schizoaffective Complaint 01/17/2016 Oskar t disorder (disorder) disorder 12:00:00 PM [facility] [id number] Alcohol dependence Alcohol dependence Complaint 6 [facility] (disorder) 12:00:00 PM [facility] [id number] Depressive disorder Depressive disorder Complaint 016 [facility] (disorder) 12:00:00 PM [facility] [id number] Schizoaffective Schizoaffective Complaint 01/17/2016 Oskar t disorder (disorder) disorder 12:00:00 [facility] [id number] Alcohol dependence Alcohol dependence Complaint 6 [facility] (disorder) 12:00:00 PM [facility] [id number] Depressive disorder Depressive disorder Complaint 016 [facility] (disorder) 12:00:00 [facility] [id number] Schizoaffective Schizoaffective Complaint 01/17/2016 Oskar t disorder (disorder) disorder 12:00:00 PM [facility] [id number] Recurrent major Recurrent major Complaint 07/15/2001 Oskar t depressive episodes, depressive episodes, 12:00 :00 PM [facility] severe, with severe, with [facility] Hospital psychosis (disorder) psychosis [id number] Schizoaffective Schizoaffective Complaint 07/15/2001 Oskar t disorder, depressive disorder, depressive 12:00 :00 PM [facility] type (disorder) type [facility] Hospital [id number] Recurrent major Recurrent major Complaint 07/15/2001 Oskar t depressive episodes, depressive episodes, 12:00 :00 PM [facility] severe, with severe, with [facility] Hospital psychosis (disorder) psychosis [id number] Schizoaffective Schizoaffective Complaint 07/15/2001 Oskar t disorder, depressive disorder, depressive 12:00 :00 PM [place] type (disorder) type [facility] [id number] Recurrent major Recurrent major Complaint 07/15/2001 Oskar t depressive episodes, depressive episodes, 12:00 :00 PM [facility] severe, with severe, with [facility] Hospital psychosis (disorder) psychosis [id number] Schizoaffective Schizoaffective Complaint 07/15/2001 Oskar t disorder, depressive disorder, depressive 12:00 :00 PM [facility] type (disorder) type [facility] [id number] Recurrent major Recurrent major Complaint 07/15/2001 Oskar t depressive episodes, depressive episodes, 12:00 :00 PM [facility] severe, with severe, with [facility] psychosis (disorder) psychosis [id number] Schizoaffective Schizoaffective Complaint 07/15/2001 Oskar t disorder, depressive disorder, depressive 12:00 :[facility] [id number] Recurrent major Recurrent major Complaint 07/15/2001 Oskar t depressive episodes, depressive episodes, 12:00 :00 PM [facility] severe, with severe, with [facility] psychosis (disorder) psychosis [id number] Schizoaffective Schizoaffective Complaint 07/15/2001 Oskar t disorder, depressive disorder, depressive 12:00 :00 PM [facility] type (disorder) type [facility] [id number] Phencyclidine abuse PCP abuse Complaint 07/15/1999 [facility] (disorder) 12:00:00 PM [facility] [id number] Phencyclidine abuse PCP abuse Complaint 07/15/1999 [facility] (disorder) 12:00:00 PM [facility] [id number] Phencyclidine abuse PCP abuse Complaint 07/15/1999 [facility] (disorder) 12:00:00 PM [facility] [id number] Phencyclidine abuse PCP abuse Complaint 07/15/1999 [facility] (disorder) 12:00:00 PM [facility] [id number] Phencyclidine abuse PCP abuse Complaint 07/15/1999 [facility] (disorder) 12:00:00 PM [facility] D64.9 Anemia, unspecified ANEMIA, UNSPECIFIED Diagnosis 020 [facility] 11:47:00 AM Medical EDT Center Z00.00 Encounter for ENCNTR FOR GENERAL Diagnosis 03/15/2020 Sixto Watson general adult ADULT MEDICAL EXAM 12:19:00 PM De dical medical examination W/O ABNORMAL EDT Cristel ter without abnormal FINDINGS findings 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, HALLUCINOGEN ABUSE, Diagnosis 020 [facility] uncomplicated UNCOMPLICATED 07:01:00 AM Medical EDT Center F10.20 Alcohol dependence, ALCOHOL DEPENDENCE, Diagnosis 020 [facility] uncomplicated UNCOMPLICATED 07:01:00 AM Medical EDT Center F33.3 Major depressive MAJOR DEPRESSV Diagnosis 03/09/2020 Oskar Watson disorder, recurrent, DISORDER, RECURRENT, 07:01 :00 AM Medical severe with SEVERE W PSYCH EDT Center psychotic symptoms SYMPTOMS F25.1 Schizoaffective SCHIZOAFFECTIVE Diagnosis 03/09/2020 Oskar Watson disorder, depressive DISORDER, DEPRESSIVE 07:01 :00 AM Medical type TYPE EDT Center R56.9 Unspecified UNSPECIFIED Diagnosis 09/07/2019 [place] convulsions CONVULSIONS 01:27:00 PM [facility] EST Care Minggl Z23 Encounter for ENCOUNTER FOR Diagnosis 06/18/2019 [facility] Maritza rosales immunization IMMUNIZATION 10:31:00 AM Medical EST Center F20.9 Schizophrenia, SCHIZOPHRENIA, Diagnosis 04/30/2019 [place] unspecified UNSPECIFIED 08:46:00 AM [facility] EDT [facility] [employer] F41.8 Other specified OTHER SPECIFIED Diagnosis 04/30/2019 [place] anxiety disorders ANXIETY DISORDERS 08:46:00 AM [facility] EDT [facility] [employer] K22.8 Other specified OTHER SPECIFIED Diagnosis 04/30/2019 [place] diseases of DISEASES OF 08:46:00 AM [facility] esophagus ESOPHAGUS EDT [facility] [employer] K44.9 Diaphragmatic hernia DIAPHRAGMATIC HERNIA Diagnosis 04/30 [place] without obstruction WITHOUT OBSTRUCTION 08:46:0 0 AM [facility] or gangrene OR GANGRENE EDT [facility] [employer] R13.10 Dysphagia, DYSPHAGIA, Diagnosis 04/30/2019 [place] unspecified UNSPECIFIED 08:46:00 AM [facility] EDT [facility] [employer] R94.31 Abnormal ABNORMAL Diagnosis 11/26/2018 [facility] electrocardiogram ELECTROCARDIOGRAM 09:51:00 AM Medical [ECG] [EKG] (ECG) (EKG) EDT Center 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 11/13/2018 Oskar Watson thyroid nodule THYROID NODULE 10:18:00 AM Medic al EDT Center 311 DEPRESSIVE DISORDER Depressive disorder Diagnosis 003 [facility] NOT ELSEWHERE NOS 10:15:00 AM [facility] CLASSIFIED EDT Hospital Diagnosis NEXTGEN ([facility]) Diagnosis NEXTGEN ([facility]) Diagnosis NEXTGEN ([facility]) Diagnosis NEXTGEN ([facility]) Surgeries/Procedures Procedure Description Date Indications Data Source(s) OFFICE/OUTPATIENT VISIT, 03/22/2020 NEX TGEN ([facility] EST 12:00:00 AM EDT [facility] - 03/22/2020 [place]) 12:00:00 AM EDT Well Visit, Est,18-39years 03/15/2020 N EXTGEN ([facility] 12:00:00 AM EDT [facility] 03/15/2020 [place]) 12:00:00 AM EDT ELECTROCARDIOGRAM, 03/15/2020 NEXTGEN ( [facility] COMPLETE 12:00:00 AM EDT [facility] 03/15/2020 [place]) 12:00:00 AM EDT Vision Screening - 0 - 21 03/15/2020 NE XTGEN ([facility] y/o 12:00:00 AM EDT [facility] 03/15/2020 [place]) 12:00:00 AM EDT PURE TONE HEARING TEST, 03/15/2020 NEXT GEN ([facility] AIR 12:00:00 AM EDT [facility] 03/15/2020 [place]) 12:00:00 AM EDT ROUTINE VENIPUNCTURE 03/15/2020 NEXTGEN ([facility] 12:00:00 AM EDT [facility] 03/15/2020 [place]) 12:00:00 AM EDT OFFICE/OUTPATIENT VISIT, 06/18/2019 NEX TGEN ([facility] EST 12:00:00 AM EST [facility] - 06/18/2019 [place]) 12:00:00 AM EST Influenza, Injectable, 3 06/18/2019 NEX TGEN ([facility] Yrs Or Older 12:00:00 AM EST [facility] - 06/18/2019 Center) 12:00:00 AM EST Immunization 06/18/2019 NEXTGEN ([facility] Administration 12:00:00 AM EST [facility] dical - 06/18/2019 Center) 12:00:00 AM EST HEP B VACCINE, ADULT, IM 06/18/2019 NEX TGEN ([facility] 12:00:00 AM EST [facility] - 06/18/2019 [place]) 12:00:00 AM EST Immunization 06/18/2019 NEXTGEN ([facility] 12:00:00 AM EST [facility] dical - 06/18/2019 Center) 12:00:00 AM EST OFFICE/OUTPATIENT VISIT, 01/07/2019 NEX TGEN ([facility] EST 12:00:00 AM EDT [facility] - 01/07/2019 Center) 12:00:00 AM EDT HEP B VACCINE, ADULT, IM 01/07/2019 NEX TGEN ([facility] 12:00:00 AM EDT [facility] - 01/07/2019 Center) 12:00:00 AM EDT Immunization 01/07/2019 NEXTGEN ([facility] Administration 12:00:00 AM EDT [facility] - 01/07/2019 Center) 12:00:00 AM EDT OFFICE/OUTPATIENT VISIT, 11/26/2018 NEX TGEN ([facility] EST 12:00:00 AM EDT [facility] - 11/26/2018 Center) 12:00:00 AM EDT ELECTROCARDIOGRAM, 11/26/2018 NEXTGEN ( [facility] COMPLETE 12:00:00 AM EDT [facility] 11/26/2018 Center) 12:00:00 AM EDT Hep B, Adult, 2 Dose 11/26/2018 NEXTGEN ([facility] 12:00:00 AM EDT [facility] - 11/26/2018 Center) 12:00:00 AM EDT Immunization 11/26/2018 NEXTGEN ([facility] 12:00:00 AM EDT [facility] - 11/26/2018 Center) 12:00:00 AM EDT Well Visit, Est,18-39years 11/13/2018 N EXTGEN ([facility] 12:00:00 AM EDT [facility] - 11/13/2018 Center) 12:00:00 AM EDT OFFICE/OUTPATIENT VISIT, 08/14/2018 NEX TGEN ([facility] EST 12:00:00 AM EST [facility] - 08/14/2018 Center) 12:00:00 AM EST ELECTROCARDIOGRAM, 08/14/2018 NEXTGEN ( [facility] COMPLETE 12:00:00 AM EST [facility] - 08/14/2018 Center) 12:00:00 AM EST OFFICE/OUTPATIENT VISIT, 11/18/2017 NEX TGEN ([facility] EST 12:00:00 AM EDT [facility] - 11/18/2017 Center) 12:00:00 AM EDT Well Visit, Est,18-39years 11/13/2017 N EXTGEN ([facility] 12:00:00 AM EDT [facility] - 11/13/2017 Center) 12:00:00 AM EDT OFFICE/OUTPATIENT VISIT, 12/15/2015 NEX TGEN ([facility] EST 12:00:00 AM EDT [facility] - 12/15/2015 Center) 12:00:00 AM EDT OFFICE/OUTPATIENT VISIT, 12/13/2015 NEX TGEN ([facility] EST 12:00:00 AM EDT [facility] 12/13/2015 Center) 12:00:00 AM EDT OFFICE/OUTPATIENT VISIT, 12/07/2015 NEX TGEN ([facility] EST 12:00:00 AM EDT [facility] 12/07/2015 [place]) 12:00:00 AM EDT TB INTRADERMAL TEST 12/07/2015 NEXTGEN ([facility] 12:00:00 AM EDT [facility] 12/07/2015 [place]) 12:00:00 AM EDT OFFICE/OUTPATIENT VISIT, 11/29/2015 NEX TGEN ([facility] 12:00:00 AM EDT [facility] 11/29/2015 Center) 12:00:00 AM EDT Results ID Date Data Source [id number] 04/11/2020 09:01:00 AM EDT [facility] Name Value Range Interpretation Description Data Sup porting Code Source(s) Document(s ) SARS [facility] coronavirus 2 RNA This lab was ordered by MINOLACI mchugh [facility] and reported by [facility]. ID Date Data Source [id number] 04/04/2020 09:28:00 AM EDT [facility] Name Value Range Interpretation Description Data Sup porting Code Source(s) Document(s ) SARS [facility] coronavirus 2 RNA This lab was ordered by [facility] HUYEN mchugh [facility] and reported by [facility]. ID Date Data Source [id number] 03/28/2020 08:58:00 AM EDT [facility] Name Value Range Interpretation Description Data Sup porting Code Source(s) Document(s ) SARS [facility] coronavirus 2 RNA This lab was ordered by [facility] HUYEN mchugh [facility] and reported by [facility]. ID Date Data Source [id number] 03/21/2020 09:08:00 AM EDT [facility] Name Value Range Interpretation Description Data Sup porting Code Source(s) Document(s ) SARS [facility] coronavirus 2 RNA This lab was ordered by MINO SILVEIRA and reported by [facility]. ID Date Data Source [id number] 03/15/2020 01:12:00 PM EDT [facility] 0 Name Value Range Interpretation Description Data Sup porting Code Source(s) Document(s ) Color of Urine YELLOW <content [facility] styleCode="Addis Shirley d">Color, Medical Urine Center </content>YELL OW <content styleCode="Shana lics"> (YELLOW )</content> Ketones NEGATIVE <content [facility] [Mass/volume] styleCode="Addis Shirley in Urine by d">Urine Medical Test strip Ketone Center </content>NEGA TIVE MG/DL<content styleCode="Shana lics"> (NEGATIVE MG/DL)</conten t> Glucose NEGATIVE <content [facility] [Mass/volume] styleCode="Addis Shirley in Urine by d">Urine Medical Test strip Glucose Center </content>NEGA TIVE MG/DL<content styleCode="Shana lics"> (NEGATIVE MG/DL)</conten t> UNK CLEAR <content [facility] styleCode="Addis Shirley d">Urine Medical Clarity Center </content>SARA R <content styleCode="Shana lics"> (CLEAR )</content> Specific 1.015-1.02 <content [facility] gravity of 5 styleCode="Addis Monroys Urine by Test d">Urine Medical strip Specific Center [place] </content>1.01 5 <content styleCode="Shana lics"> (1.015-1.025 )</content> UNK NEGATIVE <content [facility] styleCode="Addis Shirley d">Urine Medical Bilirubin Center </content>NEGA TIVE <content styleCode="Shana lics"> (NEGATIVE )</content> Urobilinogen 0.2-1.0 <content [facility] [Units/volume] styleCode="Addis Shirley in Urine by d">Urine Medical Test strip Urobilinogen Center </content>0.2 MG/DL<content styleCode="Shana lics"> (0.2-1.0 MG/DL)</conten t> Protein NEGATIVE <content [facility] [Mass/volume] styleCode="Addis Watson in Urine by d">Urine Medical Test strip Protein Center </content>NEGA TIVE MG/DL<content styleCode="Shana lics"> (NEGATIVE MG/DL)</conten t> Hemoglobin NEGATIVE <content [facility] [Presence] in styleCode="Addis Watson Urine by Test d">Urine Blood Medical strip </content>NEGA Center TIVE <content styleCode="Shana lics"> (NEGATIVE )</content> pH of Urine by 4.5-8.0 <content [facility] Test strip styleCode="Addis Monroys d">Urine pH Medical </content>6.5 Center <content styleCode="Shana lics"> (4.5-8.0 )</content> Leukocyte NEGATIVE <content [facility] esterase styleCode="Addis Watson [Presence] in d">Urine Medical Urine by Test Leukocyte Center strip </content>NEGA TIVE <content styleCode="Shana lics"> (NEGATIVE )</content> Nitrite NEGATIVE <content [facility] [Presence] in styleCode="Addis Watson Urine by Test d">Urine Medical strip Nitrite Center </content>NEGA TIVE <content styleCode="Shana lics"> (NEGATIVE )</content> ID Date Data Source Liver 03/15/2020 01:12:00 PM EDT [facility] [id number] Name Value Range Interpretation Description Data Sup [...] s"> (0.2-1.3 MG/DL)</content> ID Date Data Source [id number] 03/15/2020 01:12:00 PM EDT [facility] Name Value Range Interpretation Description Data Sup porting Code Source(s) Document(s ) Triglyceride < 150 <content [facility] [Mass/volume] in styleCode="Addis Shirley Serum or Plasma d">Triglycerid [facility] Center </content>105 MG/DL<content styleCode="Shana lics"> (< 150 MG/DL)</conten t> Cholesterol -<200 <content [facility] [Mass/volume] in styleCode="Addis Shirley Serum or Plasma d">Cholesterol Medical </content>166 Center MG/DL<content styleCode="Shana lics"> (-<200 MG/DL)</conten t> UNK < 100 <content [facility] styleCode="Addis Shirley d">LDL-Cholest Medical [facility] </content>92 MG/DL<content styleCode="Shana lics"> (< 100 MG/DL)</conten t> UNK > 60 Below low normal <content [facility] styleCode="Addis Shirley d">HDL- Medical Cholesterol Center </content>53 MG/DL L<content styleCode="Shana lics"> (> 60 MG/DL)</conten t> ID Date Data Source [id number] 03/15/2020 01:12:00 PM EDT [facility] Name Value Range Interpretation Description [...] (0.465-4.68 MIU/L)</conten t> ID Date Data Source HematologyRou.[id number] 03/15/2020 01:12:00 PM EDT [facility] 0400 Name Value Range Interpretation Description [...] high <content Saint [#/volume] in normal styleCode="Bold [facility] Blood by ">Eosinophil Medical Automated count </content>6.5 [...] (< 1 %)</content> ID Date Data Source GFR(Creatinine).[id number] 03/15/2020 01:12:00 PM EDT [facility] 0-0400 Name Value Range Interpretation Code Description Data Petra rce(s) Supporting Document(s ) UNK > 60 <content [facility] styleCode="Bold"> Medical Cent er EGFR </content>100 GFR<content styleCode="Italic s"> (> 60 GFR)</content> ID Date Data Source ChemistrySpecia.[id number] 03/15/2020 01:12:00 PM EDT [facility] 0-0400 Name Value Range Interpretation Description Data Sup porting Code Source(s) Document(s ) Cobalamin 239-931 Above high normal <content Saint (Vitamin B12) styleCode="Addis [facility] [Mass/volume] d">Vitamin B12 Medical in Serum or </content>> Center Plasma 1000 PG/ML H<content styleCode="Shana lics"> (239-931 PG/ML)</conten t> ID Date Data Source [id number] 03/15/2020 01:12:00 PM EDT [facility] -0400 Name Value Range Interpretation Description Data Sup porting Code Source(s) Document(s ) UNK >= 1.0 <content [facility] styleCode="Bold Medical ">AG Ratio Center </content>1.8 <content styleCode="Ital ics"> (>= 1.0 )</content> UNK 2.3-3.5 <content [facility] styleCode="Bold Medical ">Globulin Center </content>2.6 G/DL<content styleCode="Ital ics"> (2.3-3.5 G/DL)</content> Protein 6.3-8.2 <content [facility] [Mass/volum styleCode="Bold Medical e] in Serum ">Total Protein Center or Plasma </content>7.3 G/DL<content styleCode="Ital ics"> (6.3-8.2 G/DL)</content> ID Date Data Source [id number] 03/15/2020 01:12:00 PM EDT [facility] Name Value Range Interpretation Description Data Sup porting Code Source(s) Document(s ) Potassium 3.5-5.3 <content [facility] [Moles/volume] in styleCode="Bold"> Wilbert phs Serum or Plasma Potassium Medical </content>4.0 Center MEQ/L<content styleCode="Italic s"> (3.5-5.3 MEQ/L)</content> Sodium 137-145 <content [facility] [Moles/volume] in styleCode="Bold"> Wilbert phs Serum or Plasma Sodium Medical </content>140 Center [...] s"> (3.5-5.0 G/DL)</content> ID Date Data Source [id number] 03/14/2020 09:02:00 AM EDT [facility] Name Value Range Interpretation Description Data Sup porting Code Source(s) Document(s ) SARS [facility] coronavirus 2 RNA This lab was ordered by MINO SILVEIRA and reported by [facility]. ID Date Data Source [id number] 03/08/2020 09:07:00 AM EDT [facility] Name Value Range Interpretation Description Data Sup porting Code Source(s) Document(s ) SARS [facility] coronavirus 2 RNA This lab was ordered by [facility] and reported by [facility]. ID Date Data Source [id number] 02/29/2020 10:30:00 AM EDT [facility] Name Value Range Interpretation Description Data Sup porting Code Source(s) Document(s ) SARS [facility] coronavirus 2 RNA This lab was ordered by MINO mchugh [facility] and reported by [facility]. ID Date Data Source [id number] 02/25/2020 11:14:00 AM EDT [facility] Name Value Range Interpretation Description Data Sup porting Code Source(s) Document(s ) SARS [facility] coronavirus 2 RNA This lab was ordered by [facility] HUYEN mchugh [facility] and reported by [facility]. ID Date Data Source [id number] 02/22/2020 11:39:00 AM EDT [facility] Name Value Range Interpretation Description Data Sup porting Code Source(s) Document(s ) SARS [facility] coronavirus 2 RNA This lab was ordered by [facility] HU[facility]EN mchugh [facility] and reported by [facility]. ID Date Data Source [id number] 02/18/2020 09:43:00 AM EDT [facility] Name Value Range Interpretation Description Data Sup porting Code Source(s) Document(s ) SARS [facility] coronavirus 2 RNA This lab was ordered by MINOEldon mchugh [facility] and reported by [facility]. ID Date Data Source [id number] 12/25/2019 12:47:00 PM EDT [facility] Name Value Range Interpretation Code Description Data Petra rce(s) Supporting Document(s ) COV2 [facility] This lab was ordered by BIBIANAJulita ADLER and reported by [facility]. ID Date Data Source [id number] 11/16/2019 10:40:00 AM EDT [facility] Name Value Range Interpretation Code Description Data Petra rce(s) Supporting Document(s ) COV2 [facility] and reported by [facility]. ID Date Data Source [id number] 11/13/2018 11:20:00 AM EDT [facility] 0 Name Value Range Interpretation Description Data [...] t> Ketones NEGATIVE <content [facility] [Mass/volume] styleCode="Addis Monroys in Urine by d">Urine Medical Test strip [facility] </content>NEGA TIVE MG/DL<content styleCode="Shana lics"> (NEGATIVE MG/DL)</conten t> Hemoglobin NEGATIVE <content [facility] [Presence] in styleCode="Addis Watson Urine by Test d">Urine Blood Medical strip </content>NEGA Center TIVE <content styleCode="Shana lics"> (NEGATIVE )</content> UNK NEGATIVE <content Saint styleCode="Addis Shirley d">Urine Medical Bilirubin Center </content>NEGA TIVE <content styleCode="Shana lics"> (NEGATIVE )</content> Specific 1.015-1.02 Below low normal <content Saint gravity of 5 styleCode="Addis Monroys Urine by Test d">Urine Medical strip Specific Center [place] </content><= 1.005 L<content styleCode="Shana lics"> (1.015-1.025 )</content> pH of Urine by 4.5-8.0 <content Saint Test strip styleCode="Addis Shirley d">Urine pH Medical </content>7.0 Center <content styleCode="Shana lics"> (4.5-8.0 )</content> Urobilinogen 0.2-1.0 <content [facility] [Units/volume] styleCode="Addis Monorys in Urine by d">Urine Medical Test strip Urobilinogen Center </content>0.2 MG/DL<content styleCode="Shana lics"> (0.2-1.0 MG/DL)</conten t> Protein NEGATIVE <content [facility] [Mass/volume] styleCode="Addis Monroys in Urine by d">Urine Medical Test strip Protein Center </content>NEGA TIVE MG/DL<content styleCode="Shana lics"> (NEGATIVE MG/DL)</conten t> Leukocyte NEGATIVE <content [facility] esterase styleCode="Addis Monroys [Presence] in d">Urine Medical Urine by Test Leukocyte Center strip </content>NEGA TIVE <content styleCode="Shana lics"> (NEGATIVE )</content> Nitrite NEGATIVE <content [facility] [Presence] in styleCode="Addis Monroys Urine by Test d">Urine Medical strip Nitrite Center </content>NEGA TIVE <content styleCode="Shana lics"> (NEGATIVE )</content> ID Date Data Source Liver 11/13/2018 11:20:00 AM EDT [facility] Profile.[id number] Name Value Range Interpretation Description Data Sup [...] s"> (3.5-5.0 G/DL)</content> ID Date Data Source LIPID.[id number] 11/13/2018 11:20:00 AM EDT [facility] Name Value Range Interpretation Description Data Sup porting Code Source(s) Document(s ) Triglyceride < 150 <content [facility] [Mass/volume] in styleCode="Addis Shirley Serum or Plasma d">Triglycerid Medical es Center </content>57 MG/DL<content styleCode="Shana lics"> (< 150 MG/DL)</conten t> UNK < 100 <content Saint styleCode="Addis Shirley d">LDL-[facility] rosy Center </content>94 MG/DL<content styleCode="Shana lics"> (< 100 MG/DL)</conten t> Cholesterol -<200 <content [facility] [Mass/volume] in styleCode="Addis Shirley Serum or Plasma d">Cholesterol Medical </content>166 Center MG/DL<content styleCode="Shana lics"> (-<200 MG/DL)</conten t> UNK > 60 <content Saint styleCode="Addis Shirley d">HDL- Medical Cholesterol Center </content>61 MG/DL<content styleCode="Shana lics"> (> 60 MG/DL)</conten t> ID Date Data Source Hormones.[id number] 11/13/2018 11:20:00 AM EDT [facility] Name Value Range Interpretation Description Data Sup porting Code Source(s) Document(s ) Thyroxine (T4) 0.78-2.1 <content [facility] free 9 styleCode="Addis Monroys [Mass/volume] d">T4 Free Medical in Serum or </content>0.88 Center Plasma NG/DL<content styleCode="Shana lics"> (0.78-2.19 NG/DL)</conten t> Thyrotropin 0.465-4. <content Saint [Units/volume] 68 styleCode="Addis Shirley in Serum or d">Thyroid Medical Plasma by Stimulating Center Detection Hormone limit <= 0.05 </content>1.99 mIU/L MIU/L<content styleCode="Shana lics"> (0.465-4.68 MIU/L)</conten t> ID Date Data Source HematologyRou.[id number] 11/13/2018 11:20:00 AM EDT [facility] 0400 Name Value Range Interpretation Description Data [...] (0 /100)</content> UNK 0.0 <content Saint styleCode="Bold Shirley ">Nucleated Red Medical Blood Cell Center Count </content>0.00 KCUMM<content styleCode="Ital ics"> (0.0 KCUMM)</content > ID Date Data Source GFR(Creatinine).[id number] 11/13/2018 11:20:00 AM EDT [facility] 0-0400 Name Value Range Interpretation Code Description Data Petra rce(s) Supporting Document(s ) UNK > 60 <content [facility] styleCode="Bold"> Medical Cent er EGFR </content>80 GFR<content styleCode="Italic s"> (> 60 GFR)</content> ID Date Data Source ChemistrySpecia.[id number] 11/13/2018 11:20:00 AM EDT [facility] 0-0400 Name Value Range Interpretation Description Data Sup porting Code Source(s) Document(s ) Cobalamin 239-051 <content Saint (Vitamin B12) styleCode="Addis Shirley [Mass/volume] d">Vitamin B12 Medical in Serum or </content>777 Center Plasma PG/ML<content styleCode="Shana lics"> (239-931 PG/ML)</conten t> ID Date Data Source TIMMRJEAN.[id number] 11/13/2018 11:20:00 AM EDT [facility] -0400 Name Value Range Interpretation Description Data [...] ics"> (6.3-8.2 G/DL)</content> ID Date Data Source [facility].[id number] 11/13/2018 11:20:00 AM EDT [facility] Name Value Range Interpretation Description Data Sup porting Code Source(s) Document(s ) Chloride 98-107 <content [facility] [Moles/volume] in styleCode="Bold"> [facility] Serum or Plasma Chloride Medical </content>104 Center MEQ/L<content styleCode="Italic s"> (98-107 MEQ/L)</content> Sodium 137-145 <content [facility] [Moles/volume] in styleCode="Bold"> [facility] Serum or Plasma Sodium Medical </content>141 Center MEQ/L<content styleCode="Italic s"> (137-145 MEQ/L)</content> Potassium 3.5-5.3 <content [facility] [Moles/volume] in styleCode="Bold"> [facility] Serum or Plasma Potassium Medical </content>4.3 Center [...] Data Source Urinalysis 11/13/2018 11:20:00 AM EDT [facility] Name Value Range Interpretation Description Data Sup porting Code Source(s) Document(s ) Color of Urine YELLOW <content [facility] styleCode="Addis Watson d">Color, Medical Urine Center </content>YELL OW <content styleCode="Shana lics"> (YELLOW )</content> UNK CLEAR <content [facility] styleCode="Addis Shirley d">Urine Medical Clarity Center </content>SARA R <content styleCode="Shana lics"> (CLEAR )</content> UNK NEGATIVE <content [facility] styleCode="Addis Shirley d">Urine Medical Bilirubin Center </content>NEGA TIVE <content styleCode="Shana lics"> (NEGATIVE )</content> Ketones NEGATIVE <content [facility] [Mass/volume] styleCode="Addis Monroys in Urine by d">Urine Medical Test strip [facility] </content>NEGA TIVE MG/DL<content styleCode="Shana lics"> (NEGATIVE MG/DL)</conten t> Specific 1.015-1.02 Below low normal <content [facility] gravity of 5 styleCode="Addis Monroys Urine by Test d">Urine Medical strip Specific Center [place] </content><= 1.005 L<content styleCode="Shana lics"> (1.015-1.025 )</content> Glucose NEGATIVE <content [facility] [Mass/volume] styleCode="Addis Monroys in Urine by d">Urine Medical Test strip Glucose Center </content>NEGA TIVE MG/DL<content styleCode="Shana lics"> (NEGATIVE MG/DL)</conten t> Urobilinogen 0.2-1.0 <content [facility] [Units/volume] styleCode="Addis Monroys in Urine by d">Urine Medical [...] Shirley d">Urine pH Medical </content>7.0 Center <content styleCode="Sahna lics"> (4.5-8.0 )</content> Leukocyte NEGATIVE <content [facility] esterase styleCode="Addis Monroys [Presence] in d">Urine Medical Urine by Test Leukocyte Center strip </content>NEGA TIVE <content styleCode="Shana lics"> (NEGATIVE )</content> Protein NEGATIVE <content [facility] [Mass/volume] styleCode="Addis Monroys in Urine by d">Urine Medical Test strip Protein Center </content>NEGA TIVE MG/DL<content styleCode="Shana lics"> (NEGATIVE MG/DL)</conten t> ID Date Data Source Liver Profile 11/13/2018 11:20:00 AM EDT [facility] Name Value Range Interpretation Description Data Sup [...] Data Source LIPID 11/13/2018 11:20:00 AM EDT [facility] Name Value Range Interpretation Description Data Sup porting Code Source(s) Document(s ) Triglyceride < 150 <content [facility] [Mass/volume] in styleCode="[facility] Serum or Plasma d">Triglycerid Medical es Center </content>52 MG/DL<content styleCode="Shana lics"> (< 150 MG/DL)</conten t> Cholesterol -<200 <content [facility] [Mass/volume] in styleCode="[facility] Serum or Plasma d">Cholesterol Medical </content>180 [...] MG/DL)</conten t> UNK > 60 <content Saint styleCode="[facility] d">HDL- Medical Cholesterol Center </content>61 MG/DL<content styleCode="Shana lics"> (> 60 MG/DL)</conten t> Cholesterol -<200 <content [facility] [Mass/volume] in styleCode="Addis Shirley Serum or Plasma d">Cholesterol Medical </content>166 Center MG/DL<content styleCode="Shana lics"> (-<200 MG/DL)</conten t> Triglyceride < 150 <content [facility] [Mass/volume] in styleCode="Addis Monroys Serum or Plasma d">Triglycerid Medical Center </content>57 MG/DL<content styleCode="Shana lics"> (< 150 MG/DL)</conten t> ID Date Data Source Hormones 11/13/2018 11:20:00 AM EDT [facility] Name Value Range Interpretation Description Data Sup porting Code Source(s) Document(s ) Thyroxine (T4) 0.78-2.1 <content [facility] free 9 styleCode="Addis Monroys [Mass/volume] d">T4 Free Medical in Serum or </content>0.94 Center Plasma NG/DL<content styleCode="Shana lics"> (0.78-2.19 NG/DL)</conten t> Thyrotropin 0.465-4. <content Saint [Units/volume] 68 styleCode="Addis Shirley in Serum or d">Thyroid Medical Plasma by [facility] Center Detection Hormone limit <= 0.05 </content>1.18 mIU/L MIU/L<content styleCode="Shana lics"> (0.465-4.68 MIU/L)</conten t> Thyrotropin 0.465-4. <content [facility] [Units/volume] 68 styleCode="Addis Shirley in Serum or d">Thyroid Medical Plasma by [facility] Center Detection Hormone limit <= 0.05 </content>1.99 mIU/L MIU/L<content styleCode="Shana lics"> (0.465-4.68 MIU/L)</conten t> Thyroxine (T4) 0.78-2.1 <content [facility] free 9 styleCode="Addis Shirley [Mass/volume] d">T4 Free Medical in Serum or </content>0.88 Center Plasma NG/DL<content styleCode="Shana lics"> (0.78-2.19 NG/DL)</conten t> ID Date Data Source HematologyRou 11/13/2018 11:20:00 AM EDT [facility] Name Value Range Interpretation Description Data Sup [...] ics"> (< 1 %)</content> UNK 0.0 <content Saint styleCode="Bold Shirley ">Nucleated Red Medical Blood Cell Center Count </content>0.00 KCUMM<content styleCode="Ital ics"> (0.0 KCUMM)</content > UNK 0-0.1 Above high <content Saint normal styleCode="Bold Shirley ">Immature Medical Granulocyte Center Count </content>0.16 KCUMM H<content styleCode="Ital ics"> (0-0.1 KCUMM)</content > ID Date Data Source GFR(Creatinine) 11/13/2018 11:20:00 AM T [facility] Name Value Range Interpretation Code Description Data Petra rce(s) Supporting Document(s ) UNK > 60 <content [facility] styleCode="Bold"> Medical Cent er EGFR </content>80 GFR<content styleCode="Italic s"> (> 60 GFR)</content> ID Date Data Source ChemistrySpecia 11/13/2018 11:20:00 AM T [facility] Name Value Range Interpretation Description Data Sup porting Code Source(s) Document(s ) Cobalamin 239-931 <content Saint (Vitamin B12) styleCode="Addis Shirley [Mass/volume] d">Vitamin B12 Medical in Serum or </content>777 Center Plasma PG/ML<content styleCode="Shana lics"> (239-931 PG/ML)</conten t> ID Date Data Source CHMROUTINECCDA 11/13/2018 11:20:00 AM T [facility] Name Value Range Interpretation Description Data Sup [...] Data Source BMP 11/13/2018 11:20:00 AM EDT [facility] Name Value Range Interpretation Description Data Sup porting Code Source(s) Document(s ) Potassium 3.5-5.3 <content Saint [Moles/volume] in styleCode="Bold"> [facility] Serum or Plasma Potassium Medical </content>4.3 Center MEQ/L<content styleCode="Italic s"> (3.5-5.3 MEQ/L)</content> Chloride 98-107 <content [facility] [Moles/volume] in styleCode="Bold"> [facility] Serum or Plasma Chloride Medical </content>104 Center MEQ/L<content styleCode="Italic s"> (98-107 MEQ/L)</content> Sodium 137-145 <content Saint [Moles/volume] in styleCode="Bold"> [facility] Serum or Plasma Sodium Medical [...] s"> (0.2-1.3 MG/DL)</content> ID Date Data Source LIPID.[id number] 08/14/2018 12:21:00 PM EST [facility] Name Value Range Interpretation Description [...] 60 MG/DL)</conten t> ID Date Data Source Hormones.[id number] 08/14/2018 12:21:00 PM EST [facility] Name Value Range Interpretation Description Data Sup porting Code Source(s) Document(s ) Thyroxine (T4) 0.78-2.1 <content Saint free 9 styleCode="Addis Shirley [Mass/volume] d">T4 Free Medical in Serum or </content>0.94 Center Plasma NG/DL<content styleCode="Shana lics"> (0.78-2.19 NG/DL)</conten t> Thyrotropin 0.465-4. <content Saint [Units/volume] 68 styleCode="Addis Shirley in Serum or d">Thyroid Medical Plasma by [facility] Center Detection Hormone limit <= 0.05 </content>1.18 mIU/L MIU/L<content styleCode="Shana lics"> (0.465-4.68 MIU/L)</conten t> ID Date Data Source MROUTINECCDA.[id number] 08/14/2018 12:21:00 PM EST [facility] -0500 Name Value Range Interpretation Code Description Data Petra rce(s) Supporting Document(s ) UNK 4.2-5.8 <content [facility] styleCode="Bold" Medical Cente r >Hemoglobin A1C </content>5.4 %<content styleCode="Itali cs"> (4.2-5.8 %)</content> Procedure Social History Code Duration Value Status Description Data Source(s ) Caffeine Use 04/08/2020 completed tea, 1 cup NEXTGEN (Sixt[facility] nt Details 12:00:00 AM EDT [facility]) Smoking 04/08/2020 Unknown if completed Unknown if ever NEXTGEN ( Saint 12:00:00 AM EDT ever smoked smoked [facility]) Alcohol Use 03/22/2020 completed vodka 1 pint NEXTGEN (Sa int Details 12:00:00 AM EDT daily [facility]) Caffeine Use 06/18/2019 completed coffee, > 6 cups NEXTGE N (Saint Details 12:00:00 AM EST [facility]) Smoking 03/22/2015 Current Every completed Current Every [...] Smoking Unknown if completed Unknown if ever [facility] ever smoked smoked Medical [facility] r Vital Signs ID Date Data Source UNK Name Value Range Interpretation Code Description Data Source(s) Oxygen 98 % 98 % NEXTGEN saturation in ([facility] by Pulse Medical oximetry Center) Body mass index 21.47 kg/m2 21.47 kg/m2 [facility] ([facility]) Body temperature 36.67 Sugar 36.67 Sugar [facility] Heart rate 102 /min 102 /min [facility] ([facility]) Diastolic blood 78 mm[Hg] 78 mm[Hg] NEXTGEN pressure ([facility]) Systolic blood 121 mm[Hg] 121 mm[Hg] [facility] Body weight 60.328 kg 60.328 kg [facility] ([facility]) Body height 167.64 cm 167.64 cm [facility] ([facility]) Oxygen 98 % 98 % NEXTGEN saturation in ([facility] blood [facility] by Pulse Medical oximetry Center) Body mass index 21.63 kg/m2 21.63 kg/m2 NEXTGEN (BMI) [Ratio] ([facility]) Body temperature 36.78 Sugar 36.78 Sugar [facility] Heart rate 90 /min 90 /min [facility]) Diastolic blood 76 mm[Hg] 76 mm[Hg] [facility] ([facility]) Systolic blood 125 mm[Hg] 125 mm[Hg] [facility]) Body weight 60.781 kg 60.781 kg [facility] ([facility]) Body height 167.64 cm 167.64 cm [facility] ([facility]) Diastolic blood 72 mmHg 72 mmHg [facility] Systolic blood 113 mmHg 113 mmHg [facility] Heart rate 87 bpm 87 bpm [facility] Diastolic blood 78 mmHg 78 mmHg [facility] Systolic blood 115 mmHg 115 mmHg [facility] Respiratory rate 18 bpm 18 bpm [facility] Heart rate 81 bpm 81 bpm [facility] Body temperature 97.8 Fahrenheit 97.8 Fahrenh t [facility] Body temperature 97.4 Fahrenheit 97.4 hrenh t [facility] Diastolic blood 76 mmHg 76 mmHg [facility] Systolic blood 111 mmHg 111 mmHg [facility] Respiratory rate 16 bpm 16 bpm [facility] Heart rate 84 bpm 84 bpm [facility] Diastolic blood 68 mmHg 68 mmHg [facility] Systolic blood 110 mmHg 110 mmHg [facility] Respiratory rate 22 bpm 22 bpm [facility] Heart rate 73 bpm 73 bpm [facility] Body temperature 96.4 Fahrenheit 96.4 hrenh t [facility] Diastolic blood 68 mmHg 68 mmHg [facility] Systolic blood 110 mmHg 110 mmHg [facility] Heart rate 73 bpm 73 bpm [facility] Diastolic blood 73 mmHg 73 mmHg [facility] Systolic blood 105 mmHg 105 mmHg [facility] Heart rate 79 bpm 79 bpm [facility] Diastolic blood 80 mmHg 80 mmHg [facility] Systolic blood 113 mmHg 113 mmHg [facility] Deprecated 98 % 98 % [facility] saturation in Hospital Capillary blood by Oximetry Respiratory rate 16 bpm 16 bpm [facility] Heart rate 77 bpm 77 bpm [facility] Body temperature 98.6 Fahrenheit 98.6 Fahrenhei t [facility] Diastolic blood 66 mmHg 66 mmHg [facility] Systolic blood 103 mmHg 103 mmHg [facility] Heart rate 87 bpm 87 bpm [facility] Body weight 135 lbs 135 lbs [facility] Diastolic blood 73 mmHg 73 mmHg [facility] Systolic blood 109 mmHg 109 mmHg [facility] Deprecated 99 % 99 % [facility] saturation in Hospital Capillary blood by Oximetry Respiratory rate 18 bpm 18 bpm [facility] Heart rate 79 bpm 79 bpm [facility] Body temperature 97.8 Fahrenheit 97.8 Fahrenhei t [facility] Diastolic blood 76 mmHg 76 mmHg [facility] Systolic blood 122 mmHg 122 mmHg [facility] Respiratory rate 18 bpm 18 bpm [facility] Heart rate 89 bpm 89 bpm [facility] Body temperature 97.9 Fahrenheit 97.9 Fahrenhei t [facility] Diastolic blood 78 mmHg 78 mmHg [facility] Systolic blood 126 mmHg 126 mmHg [facility] Respiratory rate 18 bpm 18 bpm [facility] Heart rate 86 bpm 86 bpm [facility] Body temperature 97.9 Fahrenheit 97.9 Fahrenhei t [facility] Respiratory rate 18 bpm 18 bpm [facility] Body temperature 97.8 Fahrenheit 97.8 Fahrenh t [facility] Diastolic blood 84 mmHg 84 mmHg [facility] Systolic blood 118 mmHg 118 mmHg [facility] Heart rate 79 bpm 79 bpm [facility] Body temperature 97.4 Fahrenheit 97.4 Fahrenhei t [facility] Diastolic blood 74 mmHg 74 mmHg [facility] Systolic blood 110 mmHg 110 mmHg [facility] Respiratory rate 18 bpm 18 bpm [facility] Heart rate 76 bpm 76 bpm [facility] Respiratory rate 18 bpm 18 bpm [facility] Body temperature 97.3 Fahrenheit 97.3 Fahrenhei t [facility] Diastolic blood 74 mmHg 74 mmHg [facility] Systolic blood 104 mmHg 104 mmHg [facility] Heart rate 81 bpm 81 bpm [facility] Diastolic blood 72 mmHg 72 mmHg [facility] Systolic blood 109 mmHg 109 mmHg [facility] Respiratory rate 18 bpm 18 bpm [facility] Heart rate 78 bpm 78 bpm [facility] Body temperature 98.0 Fahrenheit 98.0 Fahrenhei t [facility] Diastolic blood 71 mmHg 71 mmHg [facility] Systolic blood 98 mmHg 98 mmHg [facility] Heart rate 90 bpm 90 bpm [facility] Body weight 134 lbs 134 lbs [facility] Diastolic blood 72 mmHg 72 mmHg [facility] Systolic blood 102 mmHg 102 mmHg [facility] Deprecated 96 % 96 % [facility] saturation in Hospital Capillary blood by Oximetry Respiratory rate 16 bpm 16 bpm [facility] Heart rate 85 bpm 85 bpm [facility] Body temperature 97.5 Fahrenheit 97.5 Fahrenhei t [facility] Diastolic blood 77 mmHg 77 mmHg [facility] Systolic blood 99 mmHg 99 mmHg [facility] Respiratory rate 18 bpm 18 bpm [facility] Heart rate 81 bpm 81 bpm [facility] Body temperature 96.3 Fahrenheit 96.3 Fahrenhei t [facility] Diastolic blood 67 mmHg 67 mmHg [facility] Systolic blood 101 mmHg 101 mmHg [facility] Respiratory rate 18 bpm 18 bpm [facility] Heart rate 76 bpm 76 bpm [facility] Diastolic blood 67 mmHg 67 mmHg [facility] Systolic blood 110 mmHg 110 mmHg [facility] Respiratory rate 18 bpm 18 bpm [facility] Heart rate 72 bpm 72 bpm [facility] Body temperature 96.5 Fahrenheit 96.5 Fahrenhei t [facility] Diastolic blood 74 mmHg 74 mmHg [facility] Systolic blood 101 mmHg 101 mmHg [facility] Heart rate 82 bpm 82 bpm [facility] Diastolic blood 73 mmHg 73 mmHg [facility] Systolic blood 108 mmHg 108 mmHg [facility] Respiratory rate 18 bpm 18 bpm [facility] Heart rate 75 bpm 75 bpm [facility] Body temperature 98.0 Fahrenheit 98.0 Fahrenh t [facility] Diastolic blood 67 mmHg 67 mmHg [facility] Systolic blood 107 mmHg 107 mmHg [facility] Heart rate 81 bpm 81 bpm [facility] Diastolic blood 67 mmHg 67 mmHg [facility] Systolic blood 104 mmHg 104 mmHg [facility] Respiratory rate 18 bpm 18 bpm [facility] Heart rate 76 bpm 76 bpm [facility] Body temperature 96.3 Fahrenheit 96.3 Fahrenhei t [facility] Diastolic blood 70 mmHg 70 mmHg [facility] Systolic blood 111 mmHg 111 mmHg [facility] Heart rate 88 bpm 88 bpm [facility] Diastolic blood 72 mmHg 72 mmHg [facility] Systolic blood 106 mmHg 106 mmHg [facility] Respiratory rate 18 bpm 18 bpm [facility] Heart rate 83 bpm 83 bpm [facility] Body temperature 97.7 Fahrenheit 97.7 Fahrenhei t [facility] Diastolic blood 76 mmHg 76 mmHg [facility] Systolic blood 114 mmHg 114 mmHg [facility] Heart rate 78 bpm 78 bpm [facility] Diastolic blood 71 mmHg 71 mmHg [facility] Systolic blood 111 mmHg 111 mmHg [facility] Respiratory rate 22 bpm 22 bpm [facility] Heart rate 74 bpm 74 bpm [facility] Body temperature 98.1 Fahrenheit 98.1 Fahrenhei t [facility] Diastolic blood 65 mmHg 65 mmHg [facility] Systolic blood 90 mmHg 90 mmHg [facility] Heart rate 87 bpm 87 bpm [facility] Diastolic blood 64 mmHg 64 mmHg [facility] Systolic blood 97 mmHg 97 mmHg [facility] Respiratory rate 18 bpm 18 bpm [facility] Heart rate 83 bpm 83 bpm [facility] Body temperature 96.8 Fahrenheit 96.8 Fahrenhei t [facility] Diastolic blood 72 mmHg 72 mmHg [facility] Systolic blood 103 mmHg 103 mmHg [facility] Heart rate 75 bpm 75 bpm [facility] Diastolic blood 71 mmHg 71 mmHg [facility] Systolic blood 103 mmHg 103 mmHg [facility] Respiratory rate 18 bpm 18 bpm [facility] Heart rate 75 bpm 75 bpm [facility] Body temperature 97.6 Fahrenheit 97.6 Fahrenhei t [facility] Diastolic blood 67 mmHg 67 mmHg [facility] Systolic blood 97 mmHg 97 mmHg [facility] Respiratory rate 18 bpm 18 bpm [facility] Heart rate 83 bpm 83 bpm [facility] Respiratory rate 18 bpm 18 bpm [facility] Heart rate 78 bpm 78 bpm [facility] Body temperature 96.8 Fahrenheit 96.8 Fahrenhei t [facility] Diastolic blood 65 mmHg 65 mmHg [facility] Systolic blood 100 mmHg 100 mmHg [facility] Diastolic blood 62 mmHg 62 mmHg [facility] Systolic blood 88 mmHg 88 mmHg [facility] Heart rate 88 bpm 88 bpm [facility] Diastolic blood 58 mmHg 58 mmHg [facility] Systolic blood 94 mmHg 94 mmHg [facility] Deprecated 97 % 97 % [facility] saturation in Hospital Capillary blood by Oximetry Respiratory rate 18 bpm 18 bpm [facility] Heart rate 81 bpm 81 bpm [facility] Body temperature 97.1 Fahrenheit 97.1 Fahrenhei t [facility] Diastolic blood 67 mmHg 67 mmHg [facility] Systolic blood 102 mmHg 102 mmHg [facility] Respiratory rate 20 bpm 20 bpm [facility] Heart rate 74 bpm 74 bpm [facility] Body temperature 98.0 Fahrenheit 98.0 Fahrenhei t [facility] Diastolic blood 67 mmHg 67 mmHg [facility] Systolic blood 102 mmHg 102 mmHg [facility] Respiratory rate 20 bpm 20 bpm [facility] Heart rate 79 bpm 79 bpm [facility] Body temperature 98.0 Fahrenheit 98.0 Fahrenhei t [facility] Body temperature 98.8 Fahrenheit 98.8 [facility] t [facility] Diastolic blood 59 mmHg 59 mmHg [facility] Systolic blood 94 mmHg 94 mmHg [facility] Respiratory rate 18 bpm 18 bpm [facility] Heart rate 84 bpm 84 bpm [facility] Diastolic blood 70 mmHg 70 mmHg [facility] Systolic blood 106 mmHg 106 mmHg [facility] Heart rate 75 bpm 75 bpm [facility] Diastolic blood 68 mmHg 68 mmHg [facility] Systolic blood 107 mmHg 107 mmHg [facility] Respiratory rate 18 bpm 18 bpm [facility] Heart rate 73 bpm 73 bpm [facility] Body temperature 98.0 Fahrenheit 98.0 F[facility]hei t [facility] Diastolic blood 73 mmHg 73 mmHg [facility] Systolic blood 117 mmHg 117 mmHg [facility] Heart rate 82 bpm 82 bpm [facility] Diastolic blood 67 mmHg 67 mmHg [facility] Systolic blood 109 mmHg 109 mmHg [facility] Respiratory rate 18 bpm 18 bpm [facility] Heart rate 76 bpm 76 bpm [facility] Body temperature 98.4 Fahrenheit 98.4 Fahrenhei t [facility] Respiratory rate 18 bpm 18 bpm [facility] Body temperature 98.0 Fahrenheit 98.0 [facility]hei t [facility] Diastolic blood 73 mmHg 73 mmHg [facility] Systolic blood 108 mmHg 108 mmHg [facility] Heart rate 74 bpm 74 bpm [facility] Diastolic blood 72 mmHg 72 mmHg [facility] Systolic blood 109 mmHg 109 mmHg [facility] Respiratory rate 18 bpm 18 bpm [facility] Heart rate 76 bpm 76 bpm [facility] Body temperature 98.0 Fahrenheit 98.0 F[facility]hei t [facility] Diastolic blood 75 mmHg 75 mmHg [facility] Systolic blood 108 mmHg 108 mmHg [facility] Heart rate 82 bpm 82 bpm [facility] Diastolic blood 72 mmHg 72 mmHg [facility] Systolic blood 109 mmHg 109 mmHg [facility] Respiratory rate 18 bpm 18 bpm [facility] Heart rate 79 bpm 79 bpm [facility] Body temperature 98.3 Fahrenheit 98.3 F[facility]hei t [facility] Diastolic blood 69 mmHg 69 mmHg [facility] Systolic blood 101 mmHg 101 mmHg [facility] Heart rate 72 bpm 72 bpm [facility] Diastolic blood 71 mmHg 71 mmHg [facility] Systolic blood 108 mmHg 108 mmHg [facility] Respiratory rate 18 bpm 18 bpm [facility] Heart rate 70 bpm 70 bpm [facility] Body temperature 97.7 Fahrenheit 97.7 Fahrenhei t [facility] Diastolic blood 70 mmHg 70 mmHg [facility] Systolic blood 107 mmHg 107 mmHg [facility] Heart rate 82 bpm 82 bpm [facility] Diastolic blood 79 mmHg 79 mmHg [facility] Systolic blood 102 mmHg 102 mmHg [facility] Respiratory rate 18 bpm 18 bpm [facility] Heart rate 79 bpm 79 bpm [facility] Body temperature 97.5 Fahrenheit 97.5 [facility]hei t [facility] Diastolic blood 71 mmHg 71 mmHg [facility] Systolic blood 116 mmHg 116 mmHg [facility] Respiratory rate 18 bpm 18 bpm [facility] Heart rate 79 bpm 79 bpm [facility] Diastolic blood 75 mmHg 75 mmHg [facility] Systolic blood 115 mmHg 115 mmHg [facility] Respiratory rate 18 bpm 18 bpm [facility] Heart rate 76 bpm 76 bpm [facility] Body temperature 98.2 Fahrenheit 98.2 [facility] t [facility] Diastolic blood 88 mmHg 88 mmHg [facility] Systolic blood 146 mmHg 146 mmHg [facility] Respiratory rate 18 bpm 18 bpm [facility] Heart rate 67 bpm 67 bpm [facility] Body temperature 97.5 Fahrenheit 97.5 Fahrenhei t [facility] Diastolic blood 69 mmHg 69 mmHg [facility] Systolic blood 107 mmHg 107 mmHg [facility] Respiratory rate 18 bpm 18 bpm [facility] Heart rate 81 bpm 81 bpm [facility] Body weight 124 lbs 124 lbs [facility] Diastolic blood 71 mmHg 71 mmHg [facility] Systolic blood 105 mmHg 105 mmHg [facility] Respiratory rate 18 bpm 18 bpm [facility] Heart rate 78 bpm 78 bpm [facility] Body temperature 99.1 Fahrenheit 99.1 Fahrenhei t [facility] Diastolic blood 71 mmHg 71 mmHg [facility] Systolic blood 126 mmHg 126 mmHg [facility] Heart rate 71 bpm 71 bpm [facility] Diastolic blood 76 mmHg 76 mmHg [facility] Systolic blood 108 mmHg 108 mmHg [facility] Deprecated 97 % 97 % [facility] saturation in Hospital Capillary blood by Oximetry Respiratory rate 18 bpm 18 bpm [facility] Heart rate 72 bpm 72 bpm [facility] Body temperature 97.8 Fahrenheit 97.8 Fahrenhei t [facility] Diastolic blood 67 mmHg 67 mmHg [facility] Systolic blood 103 mmHg 103 mmHg [facility] Heart rate 77 bpm 77 bpm [facility] Diastolic blood 76 mmHg 76 mmHg [facility] Systolic blood 109 mmHg 109 mmHg [facility] Respiratory rate 18 bpm 18 bpm [facility] Heart rate 78 bpm 78 bpm [facility] Body temperature 98.2 Fahrenheit 98.2 Fahrenhei t [facility] Respiratory rate 18 bpm 18 bpm [facility] Body temperature 98.5 Fahrenheit 98.5 Fahrenhei t [facility] Diastolic blood 69 mmHg 69 mmHg [facility] Systolic blood 97 mmHg 97 mmHg [facility] Heart rate 75 bpm 75 bpm [facility] Diastolic blood 70 mmHg 70 mmHg [facility] Systolic blood 102 mmHg 102 mmHg [facility] Respiratory rate 18 bpm 18 bpm [facility] Heart rate 79 bpm 79 bpm [facility] Diastolic blood 76 mmHg 76 mmHg [facility] Systolic blood 112 mmHg 112 mmHg [facility] Respiratory rate 18 bpm 18 bpm [facility] Heart rate 71 bpm 71 bpm [facility] Body temperature 98.2 Fahrenheit 98.2 F[facility]hei t [facility] Diastolic blood 71 mmHg 71 mmHg [facility] Systolic blood 109 mmHg 109 mmHg [facility] Respiratory rate 18 bpm 18 bpm [facility] Heart rate 81 bpm 81 bpm [facility] Diastolic blood 77 mmHg 77 mmHg [facility] Systolic blood 114 mmHg 114 mmHg [facility] Respiratory rate 18 bpm 18 bpm [facility] Heart rate 81 bpm 81 bpm [facility] Body temperature 97.9 Fahrenheit 97.9 F[facility]hei t [facility] Diastolic blood 76 mmHg 76 mmHg [facility] Systolic blood 115 mmHg 115 mmHg [facility] Respiratory rate 18 bpm 18 bpm [facility] Heart rate 73 bpm 73 bpm [facility] Body temperature 96.4 Fahrenheit 96.4 Fahrenhei t [facility] Diastolic blood 88 mmHg 88 mmHg [facility] Systolic blood 129 mmHg 129 mmHg [facility] Respiratory rate 18 bpm 18 bpm [facility] Heart rate 73 bpm 73 bpm [facility] Body temperature 96.4 Fahrenheit 96.4 [facility]hei t [facility] Diastolic blood 76 mmHg 76 mmHg [facility] Systolic blood 114 mmHg 114 mmHg [facility] Heart rate 77 bpm 77 bpm [facility] Diastolic blood 71 mmHg 71 mmHg [facility] Systolic blood 108 mmHg 108 mmHg [facility] Respiratory rate 18 bpm 18 bpm [facility] Heart rate 77 bpm 77 bpm [facility] Body temperature 97.1 Fahrenheit 97.1 Fahrenhei t [facility] Diastolic blood 68 mmHg 68 mmHg [facility] Systolic blood 105 mmHg 105 mmHg [facility] Deprecated 99 % 99 % [facility] saturation in Hospital Capillary blood by Oximetry Respiratory rate 18 bpm 18 bpm [facility] Heart rate 80 bpm 80 bpm [facility] Diastolic blood 71 mmHg 71 mmHg [facility] Systolic blood 99 mmHg 99 mmHg [facility] Deprecated 99 % 99 % [facility] saturation in [facility] Capillary blood by Oximetry Respiratory rate 18 bpm 18 bpm [facility] Heart rate 78 bpm 78 bpm [facility] Diastolic blood 75 mmHg 75 mmHg [facility] Systolic blood 107 mmHg 107 mmHg [facility] Respiratory rate 18 bpm 18 bpm [facility] Heart rate 75 bpm 75 bpm [facility] Body temperature 97.9 Fahrenheit 97.9 F[facility]hei t [facility] Diastolic blood 60 mmHg 60 mmHg [facility] Systolic blood 95 mmHg 95 mmHg [facility] Heart rate 80 bpm 80 bpm [facility] Body temperature 97.4 Fahrenheit 97.4 [facility]hei t [facility] Diastolic blood 65 mmHg 65 mmHg [facility] Systolic blood 99 mmHg 99 mmHg [facility] Respiratory rate 16 bpm 16 bpm [facility] Heart rate 76 bpm 76 bpm [facility] Diastolic blood 68 mmHg 68 mmHg [facility] Systolic blood 103 mmHg 103 mmHg [facility] Heart rate 86 bpm 86 bpm [facility] Diastolic blood 54 mmHg 54 mmHg [facility] Systolic blood 99 mmHg 99 mmHg [facility] Respiratory rate 18 bpm 18 bpm [facility] Heart rate 87 bpm 87 bpm [facility] Body temperature 98.9 Fahrenheit 98.9 Fahrenhei t [facility] Body weight 129 lbs 129 lbs [facility] Diastolic blood 68 mmHg 68 mmHg [facility] Systolic blood 104 mmHg 104 mmHg [facility] Respiratory rate 18 bpm 18 bpm [facility] Heart rate 86 bpm 86 bpm [facility] Body temperature 95.8 Fahrenheit 95.8 Fahrenhei t [facility] Diastolic blood 68 mmHg 68 mmHg [facility] Systolic blood 103 mmHg 103 mmHg [facility] Respiratory rate 18 bpm 18 bpm [facility] Heart rate 74 bpm 74 bpm [facility] Body temperature 97.5 Fahrenheit 97.5 F[facility]hei t [facility] Diastolic blood 59 mmHg 59 mmHg [facility] Systolic blood 87 mmHg 87 mmHg [facility] Heart rate 80 bpm 80 bpm [facility] Diastolic blood 65 mmHg 65 mmHg [facility] Systolic blood 98 mmHg 98 mmHg [facility] Respiratory rate 17 bpm 17 bpm [facility] Heart rate 75 bpm 75 bpm [facility] Body temperature 96.9 Fahrenheit 96.9 [facility]hei t [facility] Diastolic blood 57 mmHg 57 mmHg [facility] Systolic blood 96 mmHg 96 mmHg [facility] Heart rate 78 bpm 78 bpm [facility] Diastolic blood 60 mmHg 60 mmHg [facility] Systolic blood 85 mmHg 85 mmHg [facility] Respiratory rate 18 bpm 18 bpm [facility] Heart rate 76 bpm 76 bpm [facility] Body temperature 99.0 Fahrenheit 99.0 Fahrenhei t [facility] Body weight 128 lbs 128 lbs [facility] Diastolic blood 68 mmHg 68 mmHg [facility] Systolic blood 108 mmHg 108 mmHg [facility] Respiratory rate 18 bpm 18 bpm [facility] Heart rate 73 bpm 73 bpm [facility] Body temperature 96.2 Fahrenheit 96.2 F[facility]hei t [facility] Diastolic blood 64 mmHg 64 mmHg [facility] Systolic blood 96 mmHg 96 mmHg [facility] Respiratory rate 18 bpm 18 bpm [facility] Heart rate 80 bpm 80 bpm [facility] Diastolic blood 59 mmHg 59 mmHg [facility] Systolic blood 92 mmHg 92 mmHg [facility] Respiratory rate 18 bpm 18 bpm [facility] Heart rate 72 bpm 72 bpm [facility] Body temperature 97.5 Fahrenheit 97.5 Fahrenhei t [facility] Diastolic blood 61 mmHg 61 mmHg [facility] Systolic blood 95 mmHg 95 mmHg [facility] Heart rate 83 bpm 83 bpm [facility] Body weight 125 lbs 125 lbs [facility] Diastolic blood 67 mmHg 67 mmHg [facility] Systolic blood 100 mmHg 100 mmHg [facility] Deprecated 98 % 98 % [facility] saturation in Hospital Capillary blood by Oximetry Respiratory rate 16 bpm 16 bpm [facility] Heart rate 77 bpm 77 bpm [facility] Body temperature 98.2 Fahrenheit 98.2 Fahrenhei t [facility] Diastolic blood 69 mmHg 69 mmHg [facility] Systolic blood 105 mmHg 105 mmHg [facility] Respiratory rate 18 bpm 18 bpm [facility] Heart rate 74 bpm 74 bpm [facility] Body weight 128 lbs 128 lbs [facility] Diastolic blood 58 mmHg 58 mmHg [facility] Systolic blood 94 mmHg 94 mmHg [facility] Deprecated 97 % 97 % [facility] saturation in Hospital Capillary blood by Oximetry Respiratory rate 18 bpm 18 bpm [facility] Heart rate 81 bpm 81 bpm [facility] Body temperature 99.2 Fahrenheit 99.2 Fahrenhei t [facility] Diastolic blood 66 mmHg 66 mmHg [facility] Systolic blood 106 mmHg 106 mmHg [facility] Respiratory rate 18 bpm 18 bpm [facility] Heart rate 78 bpm 78 bpm [facility] Diastolic blood 61 mmHg 61 mmHg [facility] Systolic blood 99 mmHg 99 mmHg [facility] Respiratory rate 18 bpm 18 bpm [facility] Heart rate 73 bpm 73 bpm [facility] Body temperature 95.5 Fahrenheit 95.5 Fahrenhei t [facility] Diastolic blood 66 mmHg 66 mmHg [facility] Systolic blood 97 mmHg 97 mmHg [facility] Respiratory rate 18 bpm 18 bpm [facility] Heart rate 78 bpm 78 bpm [facility] Diastolic blood 68 mmHg 68 mmHg [facility] Systolic blood 100 mmHg 100 mmHg [facility] Respiratory rate 18 bpm 18 bpm [facility] Heart rate 70 bpm 70 bpm [facility] Body temperature 96.1 Fahrenheit 96.1 Fahrenhei t [facility] Diastolic blood 64 mmHg 64 mmHg [facility] Systolic blood 94 mmHg 94 mmHg [facility] Respiratory rate 18 bpm 18 bpm [facility] Heart rate 92 bpm 92 bpm [facility] Diastolic blood 57 mmHg 57 mmHg [facility] Systolic blood 92 mmHg 92 mmHg [facility] Respiratory rate 18 bpm 18 bpm [facility] Heart rate 89 bpm 89 bpm [facility] Body temperature 97.4 Fahrenheit 97.4 Fahrenhei t [facility] Diastolic blood 68 mmHg 68 mmHg [facility] Systolic blood 96 mmHg 96 mmHg [facility] Heart rate 88 bpm 88 bpm [facility] Diastolic blood 61 mmHg 61 mmHg [facility] Systolic blood 92 mmHg 92 mmHg [facility] Deprecated 97 % 97 % [facility] Capillary blood by Oximetry Respiratory rate 18 bpm 18 bpm [facility] Heart rate 78 bpm 78 bpm [facility] Body temperature 97.8 Fahrenheit 97.8 Fahrenhei t [facility] Body weight 124 lbs 124 lbs [facility] Diastolic blood 62 mmHg 62 mmHg [facility] Systolic blood 106 mmHg 106 mmHg [facility] Respiratory rate 18 bpm 18 bpm [facility] Heart rate 87 bpm 87 bpm [facility] Diastolic blood 68 mmHg 68 mmHg [facility] Systolic blood 108 mmHg 108 mmHg [facility] Respiratory rate 18 bpm 18 bpm [facility] Heart rate 83 bpm 83 bpm [facility] Body temperature 94.4 Fahrenheit 94.4 Fahrenhei t [facility] Diastolic blood 66 mmHg 66 mmHg [facility] Systolic blood 100 mmHg 100 mmHg [facility] Respiratory rate 18 bpm 18 bpm [facility] Heart rate 95 bpm 95 bpm [facility] Diastolic blood 74 mmHg 74 mmHg [facility] Systolic blood 108 mmHg 108 mmHg [facility] Respiratory rate 18 bpm 18 bpm [facility] Heart rate 93 bpm 93 bpm [facility] Body temperature 97.8 Fahrenheit 97.8 Fahrenhei t [facility] Diastolic blood 72 mmHg 72 mmHg [facility] Systolic blood 110 mmHg 110 mmHg [facility] Respiratory rate 18 bpm 18 bpm [facility] Heart rate 88 bpm 88 bpm [facility] Body temperature 97.5 Fahrenheit 97.5 Fahrenhei t [facility] Heart rate 102 bpm 102 bpm [facility] Diastolic blood 65 mmHg 65 mmHg [facility] Systolic blood 95 mmHg 95 mmHg [facility] Diastolic blood 77 mmHg 77 mmHg [facility] Systolic blood 111 mmHg 111 mmHg [facility] Respiratory rate 18 bpm 18 bpm [facility] Heart rate 100 bpm 100 bpm [facility] Body temperature 97.6 Fahrenheit 97.6 Fahrenhei t [facility] Body weight 116 lbs 116 lbs [facility] Diastolic blood 71 mmHg 71 mmHg [facility] Systolic blood 107 mmHg 107 mmHg [facility] Deprecated 106 % 106 % [facility] saturation in Hospital Capillary blood by Oximetry Respiratory rate 18 bpm 18 bpm [facility] Heart rate 93 bpm 93 bpm [facility] Body temperature 96.9 Fahrenheit 96.9 Fahrenhei t [facility] Body weight 116 lbs 116 lbs [facility] Diastolic blood 92 mmHg 92 mmHg [facility] Systolic blood 132 mmHg 132 mmHg [facility] Deprecated 106 % 106 % [facility] saturation in Hospital Capillary blood by Oximetry Respiratory rate 18 bpm 18 bpm [facility] Heart rate 87 bpm 87 bpm [facility] Body temperature 96.9 Fahrenheit 96.9 Fahrenhei t [facility] Diastolic blood 62 mmHg 62 mmHg [facility] Systolic blood 87 mmHg 87 mmHg [facility] Respiratory rate 18 bpm 18 bpm [facility] Heart rate 101 bpm 101 bpm [facility] Body weight 115 lbs 115 lbs [facility] Diastolic blood 79 mmHg 79 mmHg [facility] Systolic blood 105 mmHg 105 mmHg [facility] Respiratory rate 18 bpm 18 bpm [facility] Heart rate 100 bpm 100 bpm [facility] Body temperature 97.5 Fahrenheit 97.5 Fahrenhei t [facility] Body weight 116 lbs 116 lbs [facility] Diastolic blood 63 mmHg 63 mmHg [facility] Systolic blood 92 mmHg 92 mmHg [facility] Respiratory rate 18 bpm 18 bpm [facility] Heart rate 102 bpm 102 bpm [facility] Diastolic blood 72 mmHg 72 mmHg [facility] Systolic blood 123 mmHg 123 mmHg [facility] Respiratory rate 18 bpm 18 bpm [facility] Heart rate 100 bpm 100 bpm [facility] Body temperature 98.8 Fahrenheit 98.8 Fahrenhei t [facility] Diastolic blood 64 mmHg 64 mmHg [facility] Systolic blood 103 mmHg 103 mmHg [facility] Heart rate 127 bpm 127 bpm [facility] Diastolic blood 82 mmHg 82 mmHg [facility] Systolic blood 124 mmHg 124 mmHg [facility] Respiratory rate 18 bpm 18 bpm [facility] Heart rate 112 bpm 112 bpm [facility] Body temperature 98.6 Fahrenheit 98.6 Fahrenhei t [facility] Diastolic blood 69 mmHg 69 mmHg [facility] Systolic blood 98 mmHg 98 mmHg [facility] Deprecated 99 % 99 % [facility] saturation in Hospital Capillary blood by Oximetry Respiratory rate 18 bpm 18 bpm [facility] Heart rate 98 bpm 98 bpm [facility] Body temperature 97.8 Fahrenheit 97.8 Fahrenhei t [facility] Diastolic blood 82 mmHg 82 mmHg [facility] Systolic blood 114 mmHg 114 mmHg [facility] Deprecated 98 % 98 % [facility] saturation in Hospital Capillary blood by Oximetry Respiratory rate 18 bpm 18 bpm [facility] Heart rate 107 bpm 107 bpm [facility] [facility] Body temperature 98.2 Fahrenheit 98.2 Fahrenh t [facility] Diastolic blood 63 mmHg 63 mmHg [facility] Systolic blood 92 mmHg 92 mmHg [facility] Heart rate 113 bpm 113 bpm [facility] Diastolic blood 74 mmHg 74 mmHg [facility] Systolic blood 105 mmHg 105 mmHg [facility] Respiratory rate 19 bpm 19 bpm [facility] Heart rate 109 bpm 109 bpm [facility] Body temperature 98.3 Fahrenheit 98.3 Fahrenh t [facility] Oxygen 98 % 98 % NEXTGEN saturation in ([facility] blood [facility]) Body mass index 20.18 kg/m2 20.18 kg/m2 NEXTGEN (BMI) [Ratio] ([facility]) Body temperature 36.67 Sugar 36.67 Sugar NEXTGEN ([facility]) Heart rate 110 /min 110 /min [facility] Diastolic blood 88 mm[Hg] 88 mm[Hg] [facility] pressure ([facility]) Systolic blood 132 mm[Hg] 132 mm[Hg] [facility] pressure ([facility]) Body weight 56.699 kg 56.699 kg [facility]) Body height 167.64 cm 167.64 cm [facility] Oxygen 99 % 99 % NEXTGEN saturation in ([facility]) Body mass index 19.37 kg/m2 19.37 kg/m2 NEXTGEN (BMI) [Ratio] ([facility]) Body temperature 36.61 Sugar 36.61 Sugar [facility] Heart rate 99 /min 99 /min [facility] Diastolic blood 73 mm[Hg] 73 mm[Hg] [facility]EXT[facility] pressure ([facility]) Systolic blood 133 mm[Hg] 133 mm[Hg] [facility]EXTGEN pressure ([facility]) Body weight 54.431 kg 54.431 kg [facility] Body height 167.64 cm 167.64 cm [facility] Oxygen 98 % 98 % NEXT[facility] saturation in ([facility]) Body mass index 19.69 kg/m2 19.69 kg/m2 NEXTGEN (BMI) [Ratio] ([facility]) Body temperature 36.17 Sugar 36.17 Sugar NEXTGEN ([facility]) Heart rate 97 /min 97 /min NEXTGEN ([facility]) Diastolic blood 81 mm[Hg] 81 mm[Hg] NEXTGEN pressure ([facility]) Systolic blood 119 mm[Hg] 119 mm[Hg] NEXTGEN pressure ([facility]) Body weight 55.338 kg 55.338 kg NEXT[facility] ([facility]) Body height 167.64 cm 167.64 cm [facility] Oxygen 97 % 97 % NEXT[facility] saturation in ([facility]) Body mass index 19.53 kg/m2 19.53 kg/m2 NEXTGEN (BMI) [Ratio] ([facility]) Body temperature 36.67 Sugar 36.67 Sugar NEXTGEN ([facility]) Heart rate 98 /min 98 /min NEXTGEN ([facility]) Diastolic blood 77 mm[Hg] 77 mm[Hg] NEXTGEN pressure ([facility]) Systolic blood 131 mm[Hg] 131 mm[Hg] [facility]EXT[facility] pressure ([facility]) Body weight 54.885 kg 54.885 kg [facility] Body height 167.64 cm 167.64 cm [facility] Oxygen 100 % 100 % [facility]EXT[facility] saturation in ([facility]) Body mass index 19.69 kg/m2 19.69 kg/m2 NEXTGEN (BMI) [Ratio] ([facility]) Body temperature 36.67 Sugar 36.67 Sugar NEXTGEN ([facility]) Heart rate 107 /min 107 /min NEXTGEN ([facility]) Diastolic blood 93 mm[Hg] 93 mm[Hg] NEXT[facility] pressure ([facility]) Systolic blood 139 mm[Hg] 139 mm[Hg] NEXTGEN pressure ([facility]) Body weight 55.338 kg 55.338 kg NEXTGEN ([facility]) Body height 167.64 cm 167.64 cm [facility] ID Date Data Source [id number] 03/02/2020 01:50:59 PM [facility] Name Value Range Interpretation Code Description Data Source(s) Body weight Measured 135 lb 135 lb [facility] Body weight Measured 134 lb 134 lb [facility] Body weight Measured 124 lb 124 lb [facility] Body weight Measured 129 lb 129 lb [facility] Body weight Measured 128 lb 128 lb [facility] Body weight Measured 125 lb 125 lb [facility] Body weight Measured 128 lb 128 lb [facility] Body weight Measured 124 lb 124 lb [facility] Body weight Measured 116 lb 116 lb [facility] Body weight Measured 115 lb 115 lb [facility] Body weight Measured 116 lb 116 lb [facility] Patient Treatment Plan of Care Planned Activity Planned Date Details Description Data Source (s) Mirtazapine 30 MG Oral 03/15/2020 12:00:00 [facility]EXT[facility] ([facility]Remeron[facility] Omeprazole 40 MG Delayed 03[facility]15[facility] C[facility]) Haldol Decanoate 100 03/15/2020 12:00:00 NEXT[facility] ([facility] mg/mL intramuscular AM [facility]) 24 HR metoprolol 03/15/2020 12:00:00 NEXT GEN ([facility] succinate 50 MG Extended AM [facility] Medical Release Oral Tablet Center) [Toprol] benztropine mesylate 1 MG 03/15/2020 12:00:00 NEXT[facility] ([facility] Oral Tablet AM [facility]) Trazodone Hydrochloride 03/15/2020 12:00:00 [facility]EXT[facility] ([facility] 150 MG Oral Tablet AM [facility]) Clozaril 50 mg tablet 03/15/2020 12:00:00 NEXTGEN ([facility]) POLYETHYLENE GLYCOL 3350 11/13/2018 12:00:00 NEXTGEN ([facility] 142 MG/ML Oral Solution AM [facility] [Miralax] Center) Clotrimazole 10 MG/ML 11/13/2018 12:00:00 NEXTGEN ([facility] Topical Cream [Lotrimin] [facility]) Clozapine 100 MG Oral 11/13/2018 12:00:00 NEXTGEN ([facility] Tablet [facility]) Levetiracetam 750 MG Oral 08/14/2018 12:00:00 NEXTGEN ([facility] Tablet [Keppra] [facility]) benztropine mesylate 1 MG 08/14/2018 12:00:00 NEXTGEN ([facility] Oral Tablet [facility]) 24 HR Bupropion 08/14/2018 12:00:00 NEXTG EN ([facility] Hydrochloride 300 MG [facility] Extended Release [facility] ) Tablet [Wellbutrin] Trazodone Hydrochloride 08/14/2018 12:00:00 NEXTGEN ([facility] 150 MG Oral Tablet [facility]) Metoprolol Tartrate 25 MG 08/14/2018 12:00:00 NEXTGEN ([facility] Oral Tablet [facility]) Clozapine 100 MG Oral 08/14/2018 12:00:00 NEXTGEN ([facility] Tablet [facility]) Risperidone 2 MG Oral 11/13/2017 12:00:00 NEXTGEN ([facility] Tablet [Risperdal] [facility]) Metoprolol Tartrate 25 MG 04/13/2016 12:00:00 NEXTGEN ([facility] Oral Tablet [facility]) Levetiracetam 1000 MG 12/07/2015 12:00:00 NEXTGEN ([facility] Oral Tablet [Keppra] [facility]) Trazodone Hydrochloride 11/29/2015 12:00:00 NEXTGEN ([facility] 100 MG Oral Tablet [facility]) Sucralfate 100 MG/ML Oral 11/29/2015 12:00:00 NEXTGEN ([facility] Suspension [Carafate] [facility]) Esomeprazole 40 MG 11/29/2015 12:00:00 NE XTGEN ([facility] Delayed Release Oral [facility] Capsule [Nexium] [place]) 12 HR Bupropion 11/29/2015 12:00:00 NEXTG EN ([facility] Hydrochloride [address] [facility] Extended Release [facility] ) Tablet [Wellbutrin] Clozapine 200 MG Oral 11/29/2015 12:00:00 NEXTGEN ([facility]) Clozapine 100 MG Oral 11/29/2015 12:00:00 [facility] ([facility])
[2020-04-15] MEDS ORDERED: KETAMINE HCL 500 MG/10 ML VIAL ONE (08:16)
[2020-04-15] MEDS ORDERED: ONDANSETRON 4 MG/2 ML VIAL ONE (08:18)
[2020-04-15] MEDS ORDERED: PROPOFOL 20 ML ONE (08:18)
[2020-04-15] MEDS ORDERED: SUCCINYLCHOLINE CHLORIDE 200 MG/10 ML SYRINGE ONE (08:19)
[2020-04-15 09:15] VITALS: TEMP 98.8
[2020-04-15 09:45] VITALS: BP 131/68; PULSE 82
--- NOTE | 2020-04-15 12:15 | HP ---
CHIEF COMPLAINT: Major depressive disorder PCP: [facility] Primary Psychiatrist: [facility] HISTORY OF PRESENT ILLNESS: 37 year-old male with a PMH significant for depression, anxiety, schizophrenia, and tachycardia. Patient has been undergoing ECT since 2016. Patient presents today for ECT. Recent events: * Cogentin dose increased from 1mg to 2mg BID, tolerating well PAST MEDICAL HISTORY: Depression Anxiety Schizophrenia Tachycardia PAST SURGICAL HISTORY: Left knee tendon repair x 15 years Social History: lives at [facility] in [place] Smoking: quit 1 year ago Alcohol: sober x 3 years Drugs: no Family History: mother 60 COPD/emphysema; father 66 a&w; 2 brothers a&w Allergies No Known Drug Allergies Allergy (Verified 04/15/20 07:13) HOME MEDICATIONS: Home Medications Medication Instructions Recorded levETIRAcetam [Keppra Xr -] 750 mg PO BID 07/02/16 traZODone HCL [Desyrel -] 300 mg PO HS 07/02/16 Benztropine Mesylate [Cogentin -] 2 mg PO BID 04/25/18 Polyethylene Glycol 3350 [Miralax 17 gm PO DAILY PRN 11/25/18 119 gm Btl -] Clozapine [Clozapine Odt] 150 mg PO HS 02/19/20 Haloperidol Decanoate [Haldol 100 mg IM ASDIR 02/19/20 Decanoate 100] Metoprolol Succinate [Toprol Xl] 50 mg PO HS 02/19/20 Mirtazapine [Remeron -] 30 mg PO HS 02/19/20 REVIEW OF SYSTEMS CONSTITUTIONAL: Absent: fever, chills, diaphoresis, generalized weakness, malaise, loss of appetite, weight change HEENT: Absent: rhinorrhea, nasal congestion, throat pain, throat swelling, difficulty swallowing, mouth swelling, ear pain, eye pain, visual changes CARDIOVASCULAR: Absent: chest pain, syncope, palpitations, irregular heart rate, lightheadedness, peripheral edema RESPIRATORY: Absent: cough, shortness of breath, dyspnea with exertion, orthopnea, wheezing, stridor, hemoptysis GASTROINTESTINAL: Absent: abdominal pain, abdominal distension, nausea, vomiting, diarrhea, constipation, melena, hematochezia GENITOURINARY: Absent: dysuria, frequency, urgency, hesitancy, hematuria, flank pain, genital pain MUSCULOSKELETAL: Absent: myalgia, arthralgia, joint swelling, back pain, neck pain SKIN: Absent: rash, itching, pallor HEMATOLOGIC/IMMUNOLOGIC: Absent: easy bleeding, easy bruising, lymphadenopathy, frequent infections ENDOCRINE: Absent: unexplained weight gain, unexplained weight loss, heat intolerance, cold intolerance NEUROLOGIC: Absent: headache, focal weakness or paresthesias, dizziness, unsteady gait, seizure, mental status changes, bladder or bowel incontinence PHYSICAL EXAMINATION Vital Signs - 24 hr 04/15/20 04/15/20 04/15/20 07:16 08:35 08:40 Temperature 98.5 F Pulse Rate 82 77 79 Respiratory 16 18 18 Rate Blood Pressure 107/77 124/76 131/86 O2 Sat by Pulse 98 99 98 Oximetry (%) 04/15/20 04/15/20 04/15/20 08:45 08:50 09:05 Temperature 98.8 F Pulse Rate 78 80 80 Respiratory 18 18 16 Rate Blood Pressure 131/87 138/90 128/82 O2 Sat by Pulse 97 96 100 Oximetry (%) 04/15/20 04/15/20 09:35 09:45 Temperature Pulse Rate 82 82 Respiratory 16 16 Rate Blood Pressure 131/68 131/68 O2 Sat by Pulse 99 Oximetry (%) GENERAL: Awake, alert, and fully oriented, in no acute distress. HEAD: Normal with no signs of trauma. EYES: Pupils equal, round and reactive to light, sclera anicteric, conjunctiva clear. LUNGS: Breath sounds equal, clear to auscultation bilaterally. No wheezes, and no crackles. No accessory muscle use. HEART: Regular rate and rhythm, normal S1 and S2 ABDOMEN: Soft, nontender, not distended MUSCULOSKELETAL: Normal range of motion at all joints. No bony deformities or tenderness. No CVA tenderness. UPPER EXTREMITIES: 2+ pulses, warm, well-perfused. No cyanosis. No clubbing. No peripheral edema. LOWER EXTREMITIES: 2+ pulses, warm, well-perfused. No calf tenderness. No peripheral edema. NEUROLOGICAL: Cranial nerves II-XII intact. Normal speech. ASSESSMENT/PLAN: 37 year-old male with a PMH significant for depression, anxiety, schizophrenia, and tachycardia. Patient presents today for ECT. Cardiac --no cardiac history --Revised Cardiac Risk Index for Pre-Operative Risk: 0 points, 0.4% risk of major cardiac event Pulmonary --no pulmonary history Neurological --no neurological or neurosurgical history; no history of trauma --reports several days of jaw twitching, not seen on exam today; labs done on 02/17 show Ca and Mg wnl; anesthesia made aware Anesthesia --no reported problems with anesthesia ECT is a low risk procedure. The relative benefits of the planned procedure outweigh the relative risks for this patient at this time. Visit type - Emergency Visit Emergency Visit: No - New Patient This patient is new to me today: Yes Date on this admission: 04/15/20 - Critical Care Critical Care patient: No
== END 2020-04-15 10:20 | disposition home or self-care (01) ==
LOC: FECT 06:13
PROVIDERS: ATTEND Psychiatry & Neurology Psychiatry
PROC: GZB4ZZZ Other Electroconvulsive Therapy (ICD-10-PCS; principal; 2020-04-15 09:00)
DX: F32.9 Major depressive disorder, single episode, unspecified (principal)
CPT/HCPCS: 90870; 94760

== ENCOUNTER 2020-04-21 06:35 | Day surgery (SDC) | payer OTHER ==
--- OUTSIDE RECORDS SUMMARY | 2020-04-21 06:50 | XMS ---
:1980 Author Organization [facility] Care Team Providers Name Role Phone RAMONITA WYMAN MD Unavailable Unavailable MD BENTLEY Unavailable Unavailable CAODAISM, HUMAYUN Unavailable Unavailable Coon Unavailable Unavailable Coon Unavailable Unavailable Coon Unavailable Unavailable Coon Unavailable Unavailable Coon Unavailable Unavailable Coon Unavailable Unavailable COON RODRIGO B Unavailable Unavailable TRUDY VALENTE MD Unavailable Unavailable HHCCC Unavailable Unavailable MD LC Unavailable Unavailable KEILA REYNOSO Unavailable Unavailable LC Demarco Unavailable Unavailable GUPTA, ASSISTANT ADMINISTRATOR Unavailable Unavailable ZUNASSIGNED Unavailable Unavailable [email or web address]@, Unavailable Unavailable Re-disclosure Warning The records that [...] is protected by Article 27-F of the [facility] Public Health law. If you continue you may haveaccess to information: Regarding HIV / AIDS; Provided by facilities licensed or operated by the [facility] Office of Mental Health; or Provided by the [facility] Office for People With Developmental Disabilities. If such information is present, then the following [facility] mandated warning applies: This information has been [...] law may result in a fine or group home sentence or both. A general authorization for the release of medical or other information is NOT sufficient authorization for further disclosure. Family History Family Member Family Member Family Member Date of Description Data Source(s) Name Gender Status Status Unknown [facility] EDT Center) Encounters Encounter Providers Location Date Indications Data Source(s ) Outpatient 07/12/2020 [facility] 12:04:00 PM Medical Kev ENRIQUEZ Outpatient Attender: 07/12/2020 [facility] NIRIGNEDAdmitter: 12:00:00 AM [facility] ZUNASSIGNEDReferrer: [id number] NIRIGNED@, Outpatient Attender: [id number] [facility] 04/18/[address] [facility] ([facility] 05:49:36 PM Health Care EDT Collaborative) Patient admitted. Attender: [place] 04/15/2020 [facility] 09:55:00 AM EDT ([facility] 04/15/2020 [facility] 09:55:00 AM EDT Medical [place]) Attender: [place] 04/12/2020 [facility] 10:07:00 AM EDT ([facility] 04/12/2020 [facility] 10:07:00 AM EDT Medical [place]) [facility]: [facility]2020 [facility] 11:04:00 AM EDT ([facility] 04/08/2020 [facility] 11:04:00 AM EDT Medical [place]) Attender: [place] 03/23/2020 [facility] 12:46:00 PM EDT (Oskar t - 03/23/2020 [place] 12:46:00 PM EDT Medical Center) Outpatient 03/22/2020 [facility] 01:11:00 PM EDT Medical Center Outpatient Attender: 03/22/2020 [facility] 11:47:00 AM EDT [facility] BAdmitter: RODRIGO WALLACE BReferrer: RODRIGO Matute OutpatientOFFICE/OUT Attender: [place] 03/22/2020 N EXTGEN PATIENT VISIT, [facility] 11:47:00 AM EDT ([facility] - 03/22/2020 [facility] 11:47:00 AM EDT Medical [place]) Outpatient 03/22/2020 [facility] 12:00:00 AM EDT Medical Center Outpatient 03/15/2020 [facility] 12:24:00 PM EDT Medical Center Outpatient Attender: 03/15/2020 [facility] 12:19:00 PM EDT [facility] BAdmitter: RODRIGO WALLACE BReferrer: RODRIGO Matute OutpatientWell Attender: [place] 03/15/2020 NEXTGEN Visit, [facility] 12:19:00 PM EDT ([place] pat[place] Est,18-39years - 03/15/2020 [facility] 12:19:00 PM EDT Medical Center) Attender: [place] 03/15/2020 [facility] 09:05:00 AM EDT ([place] - 03/15/2020 [place] 09:05:00 AM EDT Medical Center) Outpatient 03/15/2020 [facility] 12:00:00 AM EDT Medical Center Attender: [place] 03/14/2020 [facility] 11:56:00 AM EDT (Oskar abdi - 03/14/2020 [facility] 11:56:00 AM EDT Medical Center) Outpatient Attender: 03/09/2020 [facility] GEORGE 07:01:00 AM EDT [facility] GEORGE MAdmitter: GEORGE VAZQUEZ MReferrer: GEORGE Demarco Outpatient Attender: PM9 02/13/2020 [facility] 12:57:38 PM EDT ([facility] ) Patient admitted. Inpatient Attender: RAMONITA TRAYLOR3S 11/15/2019 03:16:00 S tiana Corral MERNAdmitter: ALMAZ PM EDT - 02/16/2020 [facility] 10:48:00 PM EDT Patient discharged. Outpatient [facility] 11/15/2019 02:10:00 PM EDT - [address] [place] [address] 04:57:00 PM EDT Patient discharged. Outpatient Attender: [address] 10/13/2019 02:55:09 PM GSI ([facility] EDT [facility]) Patient admitted. Outpatient Attender: [address] 10/02/2019 07:07:41 AM [facility] ([facility] EDT [facility]) Patient admitted. Outpatient Attender: GEORGE Kaur 09/29/2019 01:06:00 [facility] LCRASHEED VAZQUEZ EDT Center MAdmitter: GEORGE VAZQUEZ MReferrer: GEORGE Demarco Outpatient Attender: ALVARO 09/07/2019 01:27:00 [facility]56.9 [facility] Debbie VALENTE MD R56.9 [facility]: [facility] LC VAZQUEZ MAdmitter: GEORGE VAZQUEZ MReferrer: GEORGE Demarco Outpatient Attender: 08/05/2019 [facility] AM [facility] Medical [place] LC VAZQUEZ MAdmitter: GEORGE VAZQUEZ MReferrer: GEORGE Demarco Outpatient Attender: 07/10/2019 [facility] AM [facility] Medical [place] LC VAZQUEZ MAdmitter: GEORGE VAZQUEZ MReferrer: GEORGE Demarco Attender: [place] 06/19/2019 NEXTGEN (Sa int [facility] 01:26:00 PM EST Ronnie hs Medical - 06/19/2019 Center) 01:26:00 PM EST Outpatient 06/18/2019 [facility] 03:27:00 PM EST Medical C enter Outpatient Attender: 06/18/2019 [facility] 10:31:00 AM EST [facility] RODRIGO BAdmitter: RODRIGO DEBBIECHRISTINA WALLACE BReferrer: RODRIGO Matute OutpatientOFFICE Attender: [place] 06/18/2019 NEXTG EN ([facility] /OUTPATIENT [facility] 10:31:00 AM EST Wilbert phs Medical VISIT, EST - 06/18/2019 Center) 10:31:00 AM EST Attender: [place] 06/18/2019 NEXTGEN ( int [facility] 09:07:00 AM EST Ronnie Medical - 06/18/2019 Center) 09:07:00 AM EST Outpatient 06/18/2019 [facility] 12:00:00 AM EST Medical C enter Outpatient Attender: 06/15/2019 [facility] GEORGE 09:28:00 AM [facility] Medical Center LC Gamblemitter: GEORGE VAZQUEZ MReferrer: GEORGE Demarco Outpatient 06/10/2019 [facility] 10:29:00 AM EST Medical C enter Outpatient 06/10/2019 [facility] 12:00:00 AM EST Medical C enter Outpatient Attender: 05/18/2019 [facility] GEORGE 12:30:00 PM [facility] Medical Center LC VAZQUEZ MAdmitter: GEORGE VAZQUEZ MReferrer: GEORGE Demarco Outpatient Attender: 04/30/2019 R13.1 [place] KEILA REYNOSO 08:46:00 AM EDT [address] [place], [place] [address]GregoryAdmitter: Care Corporat ion KEILA REYNOSOReferrer: KEILA REYNOSO R13.10 Outpatient Attender: EDGARDO 04/30/2019 06:00:00 R13.10 [facility] KEILA DoddAdmitter: AM EDT Health C are KEILA REYNOSOReferrer: KEILA REYNOSO R13.10 Outpatient Attender: GEORGE Kaur 04/22/2019 07:01:[address] [facility] MAdmitter: GEORGE VAZQUEZ MReferrer: GEORGE Demarco Outpatient Attender: GEORGE Kaur 03/26/2019 07:01:[address] [facility] MAdmitter: GEORGE VAZQUEZ MReferrer: GEORGE Demarco Outpatient Attender: GEORGE Kaur 12/29/2018 07:01:[address] [facility] MAdmitter: GEORGE VAZQUEZ MReferrer: GEORGE Demarco Outpatient Attender: GEORGE Ryley 04/20/2016 10:38:00 [facility] IFEOMA ABDI [facility] bib GUPTA Immunizations Vaccine Date Status Description Data Source(s) New in 2011. IIV4 06/18/2019 completed Influenza, Injectable, NEXTGEN ([facility] 12:00:00 AM EST Quadrivalent [facility]) Source: New Immunization Record As of March 1999, 06/18/2019 12:00:00 completed Hep B, adult , 3 NEXTGEN ([facility] a 2-dose hepatitis B AM EST dose [facility] Medical schedule for Center) adolescents (11-15 year olds) was FDA approved for [employer]'s Recombivax HB adult formulation. Use code 43 for the 2-dose. This code should be used for any use of standard adult formulation of hepatitis B vaccine. Source: New Immunization Record Medications Medication Brand Start Product Dose Route Administrative Pharmacy [facility] Indications Reaction Description Data Name Date Form Instructions Instructions Source(s) POLYETHYLEN Mirala .00 ORAL active polyeth ylene NEXTGEN E GLYCOL x 17 2020 {pack glycol 3350 (Sa int 3350 142 gram 12:00: et} 68210 MG Ronnie hs MG/ML Oral oral 00 AM Powder for Me dical Solution powder EDT Oral Center) [Miralax] packet Solution Miralax 17 [Miralax] gram oral powder packet 24 HR Toprol 24 HR NEXTGE N metoprolol XL 50 2020 ed metoprolol (S aint succinate mg 12:00: succinate 50 [place] 50 MG tablet 00 AM MG Extended Medi jimena Extended ,exten EDT Release Oral C enter) Release ded Tablet Oral Tablet releas [Toprol] [Toprol] e Toprol XL 50 mg tablet,exte nded release Medication administered onsite 24 HR metoprolol Toprol XL 50 mg 04/15/2020 active 24 HR NEXTGEN succinate 50 MG tablet,extended 12:00:00 AM metoprolol ([facility] Extended Release release EDT succi aftab [place] Oral Tablet 50 MG Medical [Toprol] Toprol Extended Center) XL 50 mg Release tablet,extended Oral Tabl et release [Toprol] Omeprazole 40 MG omeprazole 40 mg 04/15/2020 1 ORAL activ e take 1 NEXTGEN Delayed Release capsule,delayed 12:00:00 AM . capsule by ([facility] Oral Capsule release EDT [address] [place] omeprazole 40 mg 0 every da y Medical capsule,delayed { before a Center) release c meal a p s u l e } 24 HR metoprolol Toprol XL 25 mg 04/15/2020 1 ORAL comple laureen 24 HR NEXTGEN succinate 25 MG tablet,extended 12:00:00 AM . metoprolol ( Extended Release release EDT 0 succi aftab [place] Oral Tablet 0 25 MG Medical [Toprol] Toprol { Extended [place]) XL 25 mg t Release tablet,extended a Oral Tabl et release b [Toprol] l e t } Medication administered onsite 24 HR metoprolol Toprol XL 25 mg 04/15/2020 1.00 ORAL comple laureen 24 HR NEXTGEN succinate 25 MG tablet,extended 12:00:00 AM {tablet} metoprolol ([facility] Extended Release release EDT succi aftab [place] Oral Tablet 25 MG Medical [Toprol] Toprol Extended [place]) XL 25 mg Release tablet,extended Oral Tabl et release [Toprol] Medication administered onsite Clozaril 50 Clozapine 50 03/15/2020 active clozapine 50 NEXTGEN mg tablet MG Oral Tablet 12:00:00 AM MG Oral Tablet ([facility] EDT [Clozaril] [facility]) Mirtazapine Remeron 30 mg 03/15/2020 1.00 ORAL active mirtazapine 30 NEXTGEN 30 MG Oral tablet 12:00:00 AM {tabl MG O ral Tablet ([facility] Tablet EDT et} [Remeron] [place] [Remeron] Medical Remeron 30 mg Center ) tablet Haldol 1 ML 03/15/2020 1.00 INTR active 1 ML NEXTG EN Decanoate 100 haloperidol 12:00:00 AM mL AMUS haloperidol ([facility] mg/mL decanoate 100 EDT CULA decanoate 100 [place] intramuscular MG/ML R MG/ML Medi jimena solution Injection Injection C enter) [Haldol] [Haldol] Trazodone trazodone 150 03/15/2020 active take 2 tablet NEXTGEN Hydrochloride mg tablet 12:00:00 AM by oral route ([facility] 150 MG Oral EDT every day at [facility] Tablet night Medical trazodone 150 [place] ) mg tablet 24 HR Toprol XL 50 03/15/2020 completed 24 HR NEXTGEN metoprolol mg 12:00:00 AM metopro lol ([facility] succinate 50 tablet,extende EDT de dios ccinate 50 [place] MG Extended d release MG Exten ded Medical Release Oral Release Oral Center) Tablet Tablet [Toprol] [Toprol] Toprol XL 50 mg tablet,extend ed release benztropine benztropine 1 03/15/2020 active take 1 tablet NEXTGEN mesylate 1 MG mg tablet 12:00:00 AM by oral route ([facility] Oral Tablet EDT every hs prn [facility] benztropine 1 as needed M edical mg tablet Center) Omeprazole 40 omeprazole 40 03/15/2020 1.00 ORAL completed take 1 capsule NEXTGEN MG Delayed mg 12:00:00 AM {caps by ora l route ([facility] Release Oral capsule,delaye EDT ule} ev merle day [place] Capsule d release before a kalpana l Medical omeprazole 40 Center ) mg capsule,delay ed release Haldol 03/10/2020 100 INTR completed Haldol [facility] Decanoate - 12:00:00 AM Alanan AMUS Decan oate - [facility] 100 MG/1 ML EDT gram CULA 100 MG/1 ML H ospital INTRAMUSCULAR R INTRAMUSCUL AR Oil Oil benztropine Benztropine 02/12/2020 ORAL completed [facility] mesylate 1 MG Mesylate - 1 12:00:00 AM [facility] Oral Tablet MG ORAL Tablet EDT Hospital benztropine Benztropine 11/06/2019 1 ORAL completed Benztropine [facility] mesylate 1 MG Mesylate - 1 12:00:00 AM Table Mesylate - 1 [facility] Oral Tablet MG ORAL Tablet EDT t MG ORAL Tablet Hospital Clozapine 100 cloZAPine - 11/06/2019 6 ORAL completed cloZAPine - [facility] MG Oral 100 MG ORAL 12:00:00 AM Table 10 0 MG ORAL [facility] Tablet Tablet EDT t Tablet Hospital POLYETHYLENE MiraLAX - 17 11/06/2019 1 ORAL completed MiraLAX - 17 [facility] GLYCOL 3350 GM/1 Dose ORAL 12:00:00 AM Unit GM/1 Dose ORAL [facility] 142 MG/ML Powder for EDT Powder fo r Hospital Oral Solution Solution Solutio n [Miralax] Trazodone traZODone 11/06/2019 2 ORAL completed traZODone [facility] Hydrochloride hydrochloride 12:00:00 AM Table hydrochloride [facility] 150 MG Oral - 150 MG ORAL EDT t - 15 0 MG ORAL Hospital Tablet Tablet Tablet Risperidone 2 risperiDONE - 11/06/2019 1 ORAL completed risperiDONE - [facility] MG Oral 2 MG ORAL 12:00:00 AM Table 2 MG ORAL [facility] Tablet Tablet EDT t Tablet Hospital 24 HR Wellbutrin XL 11/06/2019 3 ORAL completed Wellbutrin XL [facility] Bupropion - 150 MG ORAL 12:00:00 AM Table - 150 MG ORAL [facility] Hydrochloride Tablet, EDT t Tablet, Hospital 150 MG Extended Extended Extended Release, 24 HR Releas e, 24 HR Release Oral Tablet [Wellbutrin] Clozapine 100 cloZAPine - 10/08/2019 6 ORAL completed cloZAPine - [facility] MG Oral 100 MG ORAL 12:00:00 AM Table 10 0 MG ORAL [facility] Tablet Tablet EDT t Tablet Hospital Trazodone traZODone 10/08/2019 2 ORAL completed traZODone [facility] Hydrochloride hydrochloride 12:00:00 AM Table hydrochloride [facility] 150 MG Oral - 150 MG ORAL EDT t - 15 0 MG ORAL Hospital Tablet Tablet Tablet Risperidone 2 risperiDONE - 10/08/2019 1 ORAL completed risperiDONE - [facility] MG Oral 2 MG ORAL 12:00:00 AM Table 2 MG ORAL [facility] Tablet Tablet EDT t Tablet Hospital POLYETHYLENE MiraLAX - 17 10/08/2019 1 ORAL completed MiraLAX - 17 [facility] GLYCOL 3350 GM/1 Dose ORAL 12:00:00 AM Unit GM/1 Dose ORAL [facility] 142 MG/ML Powder for EDT Powder fo r Hospital Oral Solution Solution Solutio n [Miralax] benztropine Benztropine 10/08/2019 1 ORAL completed Benztropine [facility] mesylate 1 MG Mesylate - 1 12:00:00 AM Table Mesylate - 1 [facility] Oral Tablet MG ORAL Tablet EDT t MG ORAL Tablet Hospital 24 HR Wellbutrin XL 10/08/2019 3 ORAL completed Wellbutrin XL [facility] Bupropion - 150 MG ORAL 12:00:00 AM Table - 150 MG ORAL [facility] Hydrochloride Tablet, EDT t Tablet, Hospital 150 MG Extended Extended Extended Release, 24 HR Releas e, 24 HR Release Oral Tablet [Wellbutrin] Risperidone 2 risperiDONE - 09/10/2019 1 ORAL completed risperiDONE - [facility] MG Oral 2 MG ORAL 12:00:00 AM Table 2 MG ORAL [facility] Tablet Tablet EST t Tablet Hospital Clozapine 100 cloZAPine - 09/10/2019 6 ORAL completed cloZAPine - [facility] MG Oral 100 MG ORAL 12:00:00 AM Table 10 0 MG ORAL [facility] Tablet Tablet EST t Tablet Hospital 24 HR Wellbutrin XL 09/10/2019 3 ORAL completed Wellbutrin XL [facility] Bupropion - 150 MG ORAL 12:00:00 AM Table - 150 MG ORAL [facility] Hydrochloride Tablet, EST t Tablet, Hospital 150 MG Extended Extended Extended Release, 24 HR Releas e, 24 HR Release Oral Tablet [Wellbutrin] POLYETHYLENE MiraLAX - 17 09/10/2019 1 ORAL completed MiraLAX - 17 [facility] GLYCOL 3350 GM/1 Dose ORAL 12:00:00 AM Unit GM/1 Dose ORAL [facility] 142 MG/ML Powder for EST Powder [facility] Oral Solution Solution Solutio n benztropine Benztropine 09/10/2019 1 ORAL completed Benztropine [facility] mesylate 1 MG Mesylate - 1 12:00:00 AM Table Mesylate - 1 [facility] Oral Tablet MG ORAL Tablet EST t MG ORAL Tablet [facility] Trazodone traZODone 09/10/2019 2 ORAL completed traZODone [facility] Hydrochloride hydrochloride 12:00:00 AM Table hydrochloride [facility] 150 MG Oral - 150 MG ORAL EST t - 15 0 MG ORAL Hospital Tablet Tablet Tablet 24 HR Wellbutrin XL 08/10/2019 3 ORAL completed Wellbutrin XL [facility] Bupropion - 150 MG ORAL 12:00:00 AM Table - 150 MG ORAL [facility] Hydrochloride Tablet, EST t Tablet, Hospital 150 MG Extended Extended Extended Release, 24 HR Releas e, 24 HR Release Oral Tablet [Wellbutrin] Trazodone traZODone 08/10/2019 2 ORAL completed traZODone [facility] Hydrochloride hydrochloride 12:00:00 AM Table hydrochloride [facility] 150 MG Oral - 150 MG ORAL EST t - 15 0 MG ORAL Hospital Tablet Tablet Tablet benztropine Benztropine 08/10/2019 1 ORAL completed Benztropine [facility] mesylate 1 MG Mesylate - 1 12:00:00 AM Table Mesylate - 1 [facility] Oral Tablet MG ORAL Tablet EST t MG ORAL Tablet Hospital Risperidone 2 risperiDONE - 08/10/2019 1 ORAL completed risperiDONE - [facility] MG Oral 2 MG ORAL 12:00:00 AM Table 2 MG ORAL [facility] Tablet Tablet EST t Tablet Hospital POLYETHYLENE MiraLAX - 17 08/10/2019 1 ORAL completed MiraLAX - 17 [facility] GLYCOL 3350 GM/1 Dose ORAL 12:00:00 AM Unit GM/1 Dose ORAL [facility] 142 MG/ML Powder for EST Powder [facility] Oral Solution Solution Solutio n 24 HR Wellbutrin XL 05/14/2019 1 ORAL completed Wellbutrin XL [facility] Bupropion - 150 MG ORAL 12:00:00 AM Table - 150 MG ORAL [facility] Hydrochloride Tablet, EDT t Tablet, Hospital 150 MG Extended Extended Extended Release, 24 HR Releas e, 24 HR Release Oral Tablet [Wellbutrin] Trazodone traZODone 05/14/2019 2 ORAL completed traZODone [facility] Hydrochloride hydrochloride 12:00:00 AM Table hydrochloride [facility] 150 MG Oral - 150 MG ORAL EDT t - 15 0 MG ORAL Hospital Tablet Tablet Tablet Risperidone 2 risperiDONE - 05/14/2019 1 ORAL completed risperiDONE - [facility] MG Oral 2 MG ORAL 12:00:00 AM Table 2 MG ORAL [facility] Tablet Tablet EDT t Tablet Hospital 24 HR Wellbutrin XL 05/14/2019 3 ORAL completed Wellbutrin XL [facility] Bupropion - 150 MG ORAL 12:00:00 AM Table - 150 MG ORAL [facility] Hydrochloride Tablet, EDT t Tablet, Hospital 150 MG Extended Extended Extended Release, 24 HR Releas e, 24 HR Release Oral Tablet [Wellbutrin] 24 HR Wellbutrin XL 05/14/2019 2 ORAL completed Wellbutrin XL [facility] Bupropion - 150 MG ORAL 12:00:00 AM Table - 150 MG ORAL [facility] Hydrochloride Tablet, EDT t Tablet, Hospital 150 MG Extended Extended Extended Release, 24 HR Releas e, 24 HR Release Oral Tablet [Wellbutrin] benztropine Benztropine 05/14/2019 1 ORAL completed Benztropine [facility] mesylate 1 MG Mesylate - 1 12:00:00 AM Table Mesylate - 1 [facility] Oral Tablet MG ORAL Tablet EDT t MG ORAL Tablet Hospital POLYETHYLENE MiraLAX - 17 05/14/2019 1 ORAL completed MiraLAX - 17 [facility] GLYCOL 3350 GM/1 Dose ORAL 12:00:00 AM Unit GM/1 Dose ORAL [facility] 142 MG/ML Powder for EDT Powder [facility] Oral Solution Solution Solutio n [Miralax] Clozapine 100 cloZAPine - 04/02/2019 6 ORAL completed cloZAPine - [facility] MG Oral 100 MG ORAL 12:00:00 AM Table 10 0 MG ORAL [facility] Tablet Tablet EDT t Tablet Hospital 24 HR buPROPion HCl 04/02/2019 1 ORAL completed buPROPion HCl [facility] Bupropion XL - 450 MG 12:00:00 AM Table XL - 450 MG [facility] Hydrochloride ORAL Tablet, EDT t ORA L Tablet, Hospital 450 MG Extended Extended Extended Release, 24 HR Releas e, 24 HR Release Oral Tablet POLYETHYLENE MiraLAX - 17 04/02/2019 1 ORAL completed MiraLAX - 17 [facility] GLYCOL 3350 GM/1 Dose ORAL 12:00:00 AM Unit GM/1 Dose ORAL [facility] 142 MG/ML Powder for EDT Powder [facility] Oral Solution Solution Solutio n benztropine Benztropine 04/02/2019 1 ORAL completed Benztropine [facility] mesylate 1 MG Mesylate - 1 12:00:00 AM Table Mesylate - 1 [facility] Oral Tablet MG ORAL Tablet EDT t MG ORAL Tablet Hospital 24 HR Wellbutrin XL 04/02/2019 1 ORAL completed Wellbutrin XL [facility] Bupropion - 150 MG ORAL 12:00:00 AM Table - 150 MG ORAL [facility] Hydrochloride Tablet, EDT t Tablet, Hospital 150 MG Extended Extended Extended Release, 24 HR Releas e, 24 HR Release Oral Tablet [Wellbutrin] Trazodone traZODone 04/02/2019 2 ORAL completed traZODone [facility] Hydrochloride hydrochloride 12:00:00 AM Table hydrochloride [facility] 150 MG Oral - 150 MG ORAL EDT t - 15 0 MG ORAL Hospital Tablet Tablet Tablet Risperidone 2 risperiDONE - 04/02/2019 1 ORAL completed risperiDONE - [facility] MG Oral 2 MG ORAL 12:00:00 AM Table 2 MG ORAL [facility] Tablet Tablet EDT t Tablet Hospital 24 HR Wellbutrin XL 03/09/2019 1 ORAL completed Wellbutrin XL [facility] Bupropion - 300 MG ORAL 12:00:00 AM Table - 300 MG ORAL [facility] Hydrochloride Tablet, EDT t Tablet, Hospital 300 MG Extended Extended Extended Release, 24 HR Releas e, 24 HR Release Oral Tablet [Wellbutrin] POLYETHYLENE MiraLAX - 17 03/09/2019 1 ORAL completed MiraLAX - 17 [facility] GLYCOL 3350 GM/1 Dose ORAL 12:00:00 AM Unit GM/1 Dose ORAL [facility] 142 MG/ML Powder for EDT Powder [facility] Oral Solution Solution Solutio n [Miralax] Trazodone traZODone 03/09/2019 2 ORAL completed traZODone [facility] Hydrochloride hydrochloride 12:00:00 AM Table hydrochloride [facility] 150 MG Oral - 150 MG ORAL EDT t - 15 0 MG ORAL Hospital Tablet Tablet Tablet benztropine Benztropine 03/09/2019 1 ORAL completed Benztropine [facility] mesylate 1 MG Mesylate - 1 12:00:00 AM Table Mesylate - 1 [facility] Oral Tablet MG ORAL Tablet EDT t MG ORAL Tablet Hospital Risperidone 2 risperiDONE - 03/09/2019 1 ORAL completed risperiDONE - [facility] MG Oral 2 MG ORAL 12:00:00 AM Table 2 MG ORAL [facility] Tablet Tablet EDT t Tablet Hospital benztropine Benztropine 12/10/2018 1 ORAL completed Benztropine [facility] mesylate 1 MG Mesylate - 1 12:00:00 AM Table Mesylate - 1 [facility] Oral Tablet MG ORAL Tablet EDT t MG ORAL Tablet Hospital Trazodone traZODone 12/10/2018 2 ORAL completed traZODone [facility] Hydrochloride hydrochloride 12:00:00 AM Table hydrochloride [facility] 150 MG Oral - 150 MG ORAL EDT t - 15 0 MG ORAL Hospital Tablet Tablet Tablet Risperidone 2 risperiDONE - 12/10/2018 1 ORAL completed risperiDONE - [facility] MG Oral 2 MG ORAL 12:00:00 AM Table 2 MG ORAL [facility] Tablet Tablet EDT t Tablet Hospital Clozapine 100 cloZAPine - 12/10/2018 6 ORAL completed cloZAPine - [facility] MG Oral 100 MG ORAL 12:00:00 AM Table 10 0 MG ORAL [facility] Tablet Tablet EDT t Tablet Hospital 24 HR Wellbutrin XL 12/10/2018 1 ORAL completed Wellbutrin XL [facility] Bupropion - 300 MG ORAL 12:00:00 AM Table - 300 MG ORAL [facility] Hydrochloride Tablet, EDT t Tablet, Hospital 300 MG Extended Extended Extended Release, 24 HR Releas e, 24 HR Release Oral Tablet [Wellbutrin] POLYETHYLENE MiraLAX - 17 12/10/2018 1 ORAL completed MiraLAX - 17 [facility] GLYCOL 3350 GM/1 Dose ORAL 12:00:00 AM Unit GM/1 Dose ORAL [facility] 142 MG/ML Powder for EDT Powder fo r Hospital Oral Solution Solution Solutio n [Miralax] Clozapine 100 clozapine 100 11/13/2018 completed take 1 in the NEXTGEN MG Oral mg tablet 12:00:00 AM morni ng, 1 at ([facility] Tablet EDT noon , and 6 Ronnie hs clozapine 100 at night Me dical mg tablet Center) given by Dr andrade Clotrimazole 10 Lotrimin AF 11/13/2018 TOPICAL complete d clotrimazole NEXTGEN MG/ML Topical (clotrimazole) 12:00:00 AM 10 MG/ML ([facility] Cream 1 % topical EDT Topical Crea m Shirley [Lotrimin] cream [Lotrimin] Me dical Lotrimin AF [place]) (clotrimazole) 1 % topical cream POLYETHYLENE Miralax 17 gram 11/13/2018 1 ORAL completed polyethylene NEXTGEN GLYCOL 3350 142 oral powder 12:00:00 AM . glycol 3350 (Saint MG/ML Oral packet EDT 0 44170 MG Bryce ephs Solution 0 Powder for Medic al [Miralax] { Oral Solution C enter) Miralax 17 gram p [Miralax] oral powder a packet c k e t } Trazodone trazodone 150 08/14/2018 completed take 2 tablet NEXTGEN Hydrochloride mg tablet 12:00:00 AM by oral route ([facility] 150 MG Oral EST every day at [facility] Tablet night Medical trazodone 150 [place] ) mg tablet 24 HR Bupropion Wellbutrin XL 08/14/2018 1 ORAL completed 24 HR NEXTGEN Hydrochloride 300 mg 24 hr 12:00:00 AM . bupropion ([facility] 300 MG Extended tablet, EST 0 hydroc hloride [place] Release Oral extended 0 300 MG M edical Tablet release { Extended Center ) [Wellbutrin] t Release Oral Wellbutrin XL a Tablet 300 mg 24 hr b [Wellbutrin] tablet, l extended e release t } benztropine benztropine 1 08/14/2018 1 ORAL completed take 1 tablet NEXTGEN mesylate 1 MG mg tablet 12:00:00 AM { by oral route ( Oral Tablet EST t 2 times every Shirley benztropine 1 a day Medica l mg tablet b [place]) l e t } Metoprolol metoprolol 08/14/2018 completed take 1 tablet NEXTGEN Tartrate 25 MG tartrate 25 mg 12:00:00 AM by mouth once ( Oral Tablet tablet EST a day with Shirley metoprolol food for Medic al tartrate 25 mg tachycardi a. [place]) tablet May cause drowsiness or dizziness. take at night Risperidone 2 Risperdal 2 mg 11/13/2017 1 ORAL completed risperidone 2 NEXTGEN MG Oral Tablet tablet 12:00:00 AM . M G Oral (Saint [Risperdal] EDT 0 Tablet Porfirio colón Risperdal 2 mg 0 [Risperdal ] Medical tablet { [place]) t a b l e t } Insurance Providers Payer name Policy type Policy ID Covered Covered constitution party's Policy P ned / Coverage constitution party ID relationship to [place] Inf ormation type robledo [facility] MEDICAID [id number] SP [id number] [facility]/P [id number] self [id number] MVP/HHP O [id number] 01 [id number] 000 [facility] MEDICAID [id number] SP [id number] [facility] HEALTH [id number] SP [id number] CARE [facility] HEALTH [id number] SP [id number] CARE O [facility] MEDICAID [id number] SP [id number] [facility] [id number] SP [id number] Options MVP SELF PAY 00 Self 00 MEDICAID INP [id number] Self [id number] P [facility] [id number] Self [id number] HARMONIOUS [place] [id number] SP [id number] HEALTH-P [facility] HEALTH [id number] SP [id number] CARE [facility] [id number] Self [id number] 000 [facility] SELF PAY 0 Self 0 MEDICAID OP [id number] Self [id number] [facility] [id number] Self [id number] HARMONIOUS [facility] [id number] self [id number] MVP/HHP O [id number] 01 [id number] MVP/HHP O [id number] 01 [id number] 0 Problems, Conditions, and Diagnoses Code Display Name Description Problem Type Effective Data Sour ce(s) Dates D64.9 Anemia, unspecified ANEMIA, UNSPECIFIED Diagnosis 020 [facility] 11:47:00 AM Medical Cente r EDT Z00.00 Encounter for ENCNTR FOR GENERAL Diagnosis 03/15/2020 [facility] adult ADULT MEDICAL EXAM 12:19:00 PM [facility] medical examination W/O ABNORMAL EDT without abnormal FINDINGS findings 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, HALLUCINOGEN ABUSE, Diagnosis [facility] uncomplicated UNCOMPLICATED 07:01:00 AM Medical Center EDT F10.20 Alcohol dependence, ALCOHOL DEPENDENCE, Diagnosis [facility] uncomplicated UNCOMPLICATED 07:01:00 AM Medical Center EDT F33.3 Major depressive MAJOR DEPRESSV Diagnosis 03/09/2020 Oskar [facility] disorder, DISORDER, 07:01:00 AM Medical Cente r recurrent, severe RECURRENT, SEVERE W EDT with psychotic PSYCH SYMPTOMS symptoms F25.1 Schizoaffective SCHIZOAFFECTIVE Diagnosis 03/09/2020 Oskar Monroys disorder, DISORDER, 07:01:00 AM Medical Cente r depressive type DEPRESSIVE TYPE EDT R56.9 Unspecified UNSPECIFIED Diagnosis 09/07/2019 [place] convulsions CONVULSIONS 01:27:00 PM [facility] EST Care [facility] Z23 Encounter for ENCOUNTER FOR Diagnosis 06/18/2019 [facility] immunization IMMUNIZATION 10:31:00 AM Medical C enter EST F20.9 Schizophrenia, SCHIZOPHRENIA, Diagnosis 04/30/2019 [place] unspecified UNSPECIFIED 08:46:00 AM [facility] EDT [facility] F41.8 Other specified OTHER SPECIFIED Diagnosis 04/30/2019 [place] anxiety disorders ANXIETY DISORDERS 08:46:00 AM [facility] EDT [facility] [employer] K22.8 Other specified OTHER SPECIFIED Diagnosis 04/30/2019 [place] diseases of DISEASES OF 08:46:00 AM [facility] esophagus ESOPHAGUS EDT [facility] K44.9 Diaphragmatic DIAPHRAGMATIC Diagnosis 04/30/2019 [facility] hernia without HERNIA WITHOUT 08:46:00 AM Count y Health obstruction or OBSTRUCTION OR EDT Care gangrene GANGRENE [facility] R13.10 Dysphagia, DYSPHAGIA, Diagnosis 04/30/2019 [place] unspecified UNSPECIFIED 08:46:00 AM [facility] EDT [facility] Surgeries/Procedures Procedure Description Date Indications Data Source(s) OFFICE/OUTPATIENT VISIT, 03/22/2020 NEX TGEN ([facility] EST 12:00:00 AM EDT [facility] - 03/22/2020 Center) 12:00:00 AM EDT Well Visit, Est,18-39years 03/15/2020 N EXTGEN ([facility] 12:00:00 AM EDT [facility] 03/15/2020 [place]) 12:00:00 AM EDT ELECTROCARDIOGRAM, 03/15/2020 NEXTGEN ( [facility] COMPLETE 12:00:00 AM EDT [facility] 03/15/2020 [place]) 12:00:00 AM EDT Vision Screening - 0 - 21 03/15/2020 NE XTGEN ([facility] y/o 12:00:00 AM EDT [facility] 03/15/2020 [place]) 12:00:00 AM EDT PURE TONE HEARING TEST, 03/15/2020 NEXT GEN ([facility] AIR 12:00:00 AM EDT [facility] 03/15/2020 Center) 12:00:00 AM EDT ROUTINE VENIPUNCTURE 03/15/2020 NEXTGEN ([facility] 12:00:00 AM EDT [facility] 03/15/2020 [place]) 12:00:00 AM EDT OFFICE/OUTPATIENT VISIT, 06/18/2019 NEX TGEN ([facility] EST 12:00:00 AM [facility] - 06/18/2019 [place]) 12:00:00 AM EST Influenza, Injectable, 3 06/18/2019 NEX TGEN ([facility] Yrs Or Older 12:00:00 AM EST [facility] - 06/18/2019 Center) 12:00:00 AM EST Immunization 06/18/2019 NEXTGEN ([facility] Administration 12:00:00 AM EST [facility] dical - 06/18/2019 Center) 12:00:00 AM EST HEP B VACCINE, ADULT, IM 06/18/2019 NEX TGEN ([facility] 12:00:00 AM [facility] - 06/18/2019 [place]) 12:00:00 AM EST Immunization 06/18/2019 NEXTGEN ([facility] Administration 12:00:00 AM EST [facility] Me dical - 06/18/2019 Center) 12:00:00 AM EST Results ID Date Data Source [id number] 04/17/2020 10:35:00 AM EDT [facility] Name Value Range Interpretation Description Data Sup porting Code Source(s) Document(s ) SARS [facility] coronavirus 2 RNA This lab was ordered by [facility] HUYEN mchugh [facility] and reported by [facility]. ID Date Data Source [id number] 04/11/2020 09:01:00 AM EDT [facility] Name Value Range Interpretation Description Data Sup porting Code Source(s) Document(s ) SARS [facility] coronavirus 2 RNA [facility] lab [facility] and reported by [facility]. ID Date Data Source [id number] 04/04/2020 09:28:00 AM EDT [facility] Name Value Range Interpretation Description Data Sup porting Code Source(s) Document(s ) SARS [facility] coronavirus 2 RNA This lab was [facility] and reported by [facility]. ID Date Data Source [id number] 03/28/2020 08:58:00 AM EDT [facility] Name Value Range Interpretation Description Data Sup porting Code Source(s) Document(s ) SARS [facility] coronavirus 2 RNA This lab was [facility] and reported by [facility]. ID Date Data Source [id number] 03/21/2020 09:08:00 AM EDT [facility] Name Value Range Interpretation Description Data Sup porting Code Source(s) Document(s ) SARS [facility] coronavirus 2 RNA This lab was [facility] and reported by [facility]. ID Date Data Source Urinalysis.[id number] 03/15/2020 01:12:00 PM EDT [facility] 0 Name Value Range Interpretation Description Data Sup porting Code Source(s) Document(s ) Color of Urine YELLOW <content Saint styleCode="Addis Shirley d">Color, [facility] Urine Center </content>YELL OW <content styleCode="Shana lics"> [...] by Test d">Urine Medical strip Specific Center [place] </content>1.01 5 <content styleCode="Shana lics"> (1.015-1.025 )</content> [...] Data Source Liver 03/15/2020 01:12:00 PM EDT [facility] Profile.[id number] Name Value Range Interpretation Description Data Sup [...] IU/L)</content> Aspartate 17-59 <content [facility] aminotransferase styleCode="Bold"> Ronine hs [Enzymatic Aspartate Medical activity/volume] Aminotransferase Center [...] s"> (0.2-1.3 MG/DL)</content> ID Date Data Source [id number] 03/15/2020 01:12:00 PM EDT [facility] Name Value Range Interpretation Description Data Sup porting Code Source(s) Document(s ) Triglyceride < 150 <content [facility] [Mass/volume] in styleCode="Addis Shirley Serum or Plasma d">Triglycerid [facility] Center </content>105 MG/DL<content styleCode="Shana lics"> (< 150 MG/DL)</conten t> Cholesterol -<200 <content [facility] [Mass/volume] in styleCode="Addis Shirley Serum or Plasma d">Cholesterol Medical </content>166 Center MG/DL<content styleCode="Shnaa lics"> (-<200 MG/DL)</conten t> UNK < 100 <content Saint styleCode="Addis Shirley d">LDL-[facility] </content>92 MG/DL<content styleCode="Shana lics"> (< 100 MG/DL)</conten t> UNK > 60 Below low normal <content Saint styleCode="Addis Shirley d">HDL- Medical Cholesterol [place] </content>53 MG/DL L<content styleCode="Shana lics"> (> 60 MG/DL)</conten t> ID Date Data Source [id number] 03/15/2020 01:12:00 PM EDT Oskar [facility] Name Value Range Interpretation Description [...] (0.465-4.68 MIU/L)</conten t> ID Date Data Source HematologyRou.[id number] 03/15/2020 01:12:00 PM EDT Sixto [facility] 0400 Name Value Range Interpretation Description [...] (< 1 %)</content> ID Date Data Source GFR(Creatinine).[id number] 03/15/2020 01:12:00 PM EDT [facility] 0-0400 Name Value Range Interpretation Code Description Data Petra rce(s) Supporting Document(s ) UNK > 60 <content [facility] styleCode="Bold"> Medical Cent er EGFR </content>100 GFR<content styleCode="Italic s"> (> 60 GFR)</content> ID Date Data Source ChemistrySpecia.[id number] 03/15/2020 01:12:00 PM EDT [facility] 0-0400 Name Value Range Interpretation Description Data Sup porting Code Source(s) Document(s ) Cobalamin 239-931 Above high normal <content Saint (Vitamin B12) styleCode="Addis Shirley [Mass/volume] d">Vitamin B12 Medical in Serum or </content>> Center Plasma 1000 PG/ML H<content styleCode="Shana lics"> (239-931 PG/ML)</conten t> ID Date Data Source CHMROUTINECCDA.[id number] 03/15/2020 01:12:00 PM EDT [facility] -0400 Name Value Range Interpretation Description Data Sup porting Code Source(s) Document(s ) UNK >= 1.0 <content [facility] styleCode="Bold Medical ">AG Ratio Center </content>1.8 <content styleCode="Ital ics"> (>= 1.0 )</content> UNK 2.3-3.5 <content [facility] styleCode="Bold Medical ">Globulin Center </content>2.6 G/DL<content styleCode="Ital ics"> (2.3-3.5 G/DL)</content> Protein 6.3-8.2 <content [facility] [Mass/volum styleCode="Bold Medical e] in Serum ">Total Protein Center or Plasma </content>7.3 G/DL<content styleCode="Ital ics"> (6.3-8.2 G/DL)</content> ID Date Data Source [facility].[id number] 03/15/2020 01:12:00 PM EDT [facility] Name Value Range Interpretation Description Data Sup porting Code Source(s) Document(s ) Potassium 3.5-5.3 <content [facility] [Moles/volume] in styleCode="Bold"> [facility] Serum or Plasma Potassium Medical </content>4.0 Center MEQ/L<content styleCode="Italic s"> (3.5-5.3 MEQ/L)</content> Sodium 137-145 <content [facility] [Moles/volume] in styleCode="Bold"> [facility] Serum or Plasma Sodium Medical </content>140 Center MEQ/L<content styleCode="Italic s"> (137-145 MEQ/L)</content> UNK 9-20 <content Saint styleCode="Bold"> [facility] BUN </content>9 Medical MG/DL<content Center styleCode="Italic s"> [...] s"> (3.5-5.0 G/DL)</content> ID Date Data Source [id number] 03/14/2020 09:02:00 AM EDT [facility] Name Value Range Interpretation Description Data Sup porting Code Source(s) Document(s ) SARS [facility] coronavirus 2 RNA This lab was ordered by MINO mchugh [facility] and reported by [facility]. ID Date Data Source [id number] 03/08/2020 09:07:00 AM EDT [facility] Name Value Range Interpretation Description Data Sup porting Code Source(s) Document(s ) SARS [facility] coronavirus 2 RNA This lab was ordered by [facility] and reported by [facility]. ID Date Data Source [id number] 02/29/2020 10:30:00 AM EDT [facility] Name Value Range Interpretation Description Data Sup porting Code Source(s) Document(s ) SARS [facility] coronavirus 2 RNA This lab was ordered by MINO mchugh [facility] and reported by [facility]. ID Date Data Source [id number] 02/25/2020 11:14:00 AM EDT [facility] Name Value Range Interpretation Description Data Sup porting Code Source(s) Document(s ) SARS [facility] coronavirus 2 RNA This lab was ordered by [facility] HUYEN mchugh [facility] and reported by [facility]. ID Date Data Source [id number] 02/22/2020 11:39:00 AM EDT [facility] Name Value Range Interpretation Description Data Sup porting Code Source(s) Document(s ) SARS [facility] coronavirus 2 RNA This lab was ordered by MINO mchugh [facility] and reported by [facility]. ID Date Data Source [id number] 02/18/2020 09:43:00 AM EDT [facility] Name Value Range Interpretation Description Data Sup porting Code Source(s) Document(s ) SARS [facility] coronavirus 2 RNA This lab was ordered by MINOLACI mchugh [facility] and reported by [facility]. ID Date Data Source [id number] 12/25/2019 12:47:00 PM EDT [facility] Name Value Range Interpretation Code Description Data Petra rce(s) Supporting Document(s ) COV2 [facility] This lab was ordered by [employer] [facility] and reported by [facility] [facility] [place]. ID Date Data Source [id number] 11/16/2019 10:40:00 AM EDT [facility] Name Value Range Interpretation Code Description Data Petra rce(s) Supporting Document(s ) COV2 [facility] This lab was ordered by [facility] and reported by [employer] [facility] [place]. Procedure Social History Code Duration Value Status Description Data Source(s ) Caffeine Use 04/12/2020 completed tea, 1 cup NEXTGEN (Sixt[facility] nt Details 12:00:00 AM [facility]) Smoking 04/12/2020 Unknown if completed Unknown if ever NEXTGEN ( [facility] 12:00:00 AM EDT ever smoked smoked [facility]) Alcohol Use 03/22/2020 completed vodka 1 pint NEXTGEN (Sa int Details 12:00:[address] [facility]) Caffeine Use 06/18/2019 completed coffee, > 6 cups NEXTGE N ([facility] Details 12:00:[address] [facility]) Vital Signs ID Date Data Source UNK Name Value Range Interpretation Code Description Data Source(s) Oxygen 98 % 98 % NEXTGEN saturation in ([facility] blood [facility] by [facility]) Body mass index 21.47 kg/m2 21.47 kg/m2 NEXTGEN (BMI) [Ratio] ([facility]) Body temperature 36.67 Sugar 36.67 Sugar [facility] Heart rate 102 /min 102 /min [facility] Diastolic blood 78 mm[Hg] 78 mm[Hg] NEXTGEN pressure ([facility]) Systolic blood 121 mm[Hg] 121 mm[Hg] NEXTGEN pressure ([facility]) Body weight 60.328 kg 60.328 kg [facility]) Body height 167.64 cm 167.64 cm [facility]) Oxygen 98 % 98 % NEXTGEN saturation in ([facility] by [facility]) Body mass index 21.63 kg/m2 21.63 kg/m2 NEXTGEN (BMI) [Ratio] ([facility]) Body temperature 36.78 Sugar 36.78 Sugar [facility] Heart rate 90 /min 90 /min [facility]) Diastolic blood 76 mm[Hg] 76 mm[Hg] NEXTGEN pressure ([facility]) Systolic blood 125 mm[Hg] 125 mm[Hg] NEXTGEN pressure ([facility]) Body weight 60.781 kg 60.781 kg [facility]) Body height 167.64 cm 167.64 cm [facility] ([facility] Diastolic blood 72 mmHg 72 mmHg [facility] Systolic blood 113 mmHg 113 mmHg [facility] Heart rate 87 bpm 87 bpm [facility] Diastolic blood 78 mmHg 78 mmHg [facility] Systolic blood 115 mmHg 115 mmHg [facility] Respiratory rate 18 bpm 18 bpm [facility] Heart rate 81 bpm 81 bpm [facility] Body temperature 97.8 Fahrenheit 97.8 Fahrenh t [facility] Body temperature 97.4 [facility] 76 mmHg 76 mmHg [facility] Systolic blood 111 mmHg 111 mmHg [facility] Respiratory rate 16 bpm 16 bpm [facility] Heart rate 84 bpm 84 bpm [facility] Diastolic blood 68 mmHg 68 mmHg [facility] Systolic blood 110 mmHg 110 mmHg [facility] Respiratory rate 22 bpm 22 bpm [facility] Heart rate 73 bpm 73 bpm [facility] Body temperature 96.4 Fahrenheit 96.4 Fahrenhei t [facility] Diastolic blood 68 mmHg 68 mmHg [facility] Systolic blood 110 mmHg 110 mmHg [facility] Heart rate 73 bpm 73 bpm [facility] Diastolic blood 73 mmHg 73 mmHg [facility] Systolic blood 105 mmHg 105 mmHg [facility] Heart rate 79 bpm 79 bpm [facility] Diastolic blood 80 mmHg 80 mmHg [facility] Systolic blood 113 mmHg 113 mmHg [facility] Deprecated 98 % 98 % [facility] saturation in Hospital Capillary blood by Oximetry Respiratory rate 16 bpm 16 bpm [facility] Heart rate 77 bpm 77 bpm [facility] Body temperature 98.6 Fahrenheit 98.6 Fahrenhei t [facility] Diastolic blood 66 mmHg 66 mmHg [facility] Systolic blood 103 mmHg 103 mmHg [facility] Heart rate 87 bpm 87 bpm [facility] Body weight 135 lbs 135 lbs [facility] Diastolic blood 73 mmHg 73 mmHg [facility] Systolic blood 109 mmHg 109 mmHg [facility] Deprecated 99 % 99 % [facility] saturation in Hospital Capillary blood by Oximetry Respiratory rate 18 bpm 18 bpm [facility] Heart rate 79 bpm 79 bpm [facility] Body temperature 97.8 Fahrenheit 97.8 Fahrenhei t [facility] Diastolic blood 76 mmHg 76 mmHg [facility] Systolic blood 122 mmHg 122 mmHg [facility] Respiratory rate 18 bpm 18 bpm [facility] Heart rate 89 bpm 89 bpm [facility] Body temperature 97.9 Fahrenheit 97.9 Fahrenhei t [facility] Diastolic blood 78 mmHg 78 mmHg [facility] Systolic blood 126 mmHg 126 mmHg [facility] Respiratory rate 18 bpm 18 bpm [facility] Heart rate 86 bpm 86 bpm [facility] Body temperature 97.9 Fahrenheit 97.9 Fahrenhei t [facility] Respiratory rate 18 bpm 18 bpm [facility] Body temperature 97.8 Fahrenheit 97.8 Fahrenhei t [facility] Diastolic blood 84 mmHg 84 mmHg [facility] Systolic blood 118 mmHg 118 mmHg [facility] Heart rate 79 bpm 79 bpm [facility] Body temperature 97.4 Fahrenheit 97.4 Fahrenhei t [facility] Diastolic blood 74 mmHg 74 mmHg [facility] Systolic blood 110 mmHg 110 mmHg [facility] Respiratory rate 18 bpm 18 bpm [facility] Heart rate 76 bpm 76 bpm [facility] Respiratory rate 18 bpm 18 bpm [facility] Body temperature 97.3 Fahrenheit 97.3 Fahrenhei t [facility] Diastolic blood 74 mmHg 74 mmHg [facility] Systolic blood 104 mmHg 104 mmHg [facility] Heart rate 81 bpm 81 bpm [facility] Diastolic blood 72 mmHg 72 mmHg [facility] Systolic blood 109 mmHg 109 mmHg [facility] Respiratory rate 18 bpm 18 bpm [facility] Heart rate 78 bpm 78 bpm [facility] Body temperature 98.0 Fahrenheit 98.0 Fahrenhei t [facility] Diastolic blood 71 mmHg 71 mmHg [facility] Systolic blood 98 mmHg 98 mmHg [facility] Heart rate 90 bpm 90 bpm [facility] Body weight 134 lbs 134 lbs [facility] Diastolic blood 72 mmHg 72 mmHg [facility] Systolic blood 102 mmHg 102 mmHg [facility] Deprecated 96 % 96 % [facility] saturation in [facility] Capillary blood by Oximetry Respiratory rate 16 bpm 16 bpm [facility] Heart rate 85 bpm 85 bpm [facility] Body temperature 97.5 Fahrenheit 97.5 Fahrenhei t [facility] Diastolic blood 77 mmHg 77 mmHg [facility] Systolic blood 99 mmHg 99 mmHg [facility] Respiratory rate 18 bpm 18 bpm [facility] Heart rate 81 bpm 81 bpm [facility] Body temperature 96.3 Fahrenheit 96.3 Fahrenhei t [facility] Diastolic blood 67 mmHg 67 mmHg [facility] Systolic blood 101 mmHg 101 mmHg [facility] Respiratory rate 18 bpm 18 bpm [facility] Heart rate 76 bpm 76 bpm [facility] Diastolic blood 67 mmHg 67 mmHg [facility] Systolic blood 110 mmHg 110 mmHg [facility] Respiratory rate 18 bpm 18 bpm [facility] Heart rate 72 bpm 72 bpm [facility] Body temperature 96.5 Fahrenheit 96.5 Fahrenhei t [facility] Diastolic blood 74 mmHg 74 mmHg [facility] Systolic blood 101 mmHg 101 mmHg [facility] Heart rate 82 bpm 82 bpm [facility] Diastolic blood 73 mmHg 73 mmHg [facility] Systolic blood 108 mmHg 108 mmHg [facility] Respiratory rate 18 bpm 18 bpm [facility] Heart rate 75 bpm 75 bpm [facility] Body temperature 98.0 Fahrenheit 98.0 Fahrenhei t [facility] Diastolic blood 67 mmHg 67 mmHg [facility] Systolic blood 107 mmHg 107 mmHg [facility] Heart rate 81 bpm 81 bpm [facility] Diastolic blood 67 mmHg 67 mmHg [facility] Systolic blood 104 mmHg 104 mmHg [facility] Respiratory rate 18 bpm 18 bpm [facility] Heart rate 76 bpm 76 bpm [facility] Body temperature 96.3 Fahrenheit 96.3 Fahrenhei t [facility] Diastolic blood 70 mmHg 70 mmHg [facility] Systolic blood 111 mmHg 111 mmHg [facility] Heart rate 88 bpm 88 bpm [facility] Diastolic blood 72 mmHg 72 mmHg [facility] Systolic blood 106 mmHg 106 mmHg [facility] Respiratory rate 18 bpm 18 bpm [facility] Heart rate 83 bpm 83 bpm [facility] Body temperature 97.7 Fahrenheit 97.7 Fahrenhei t [facility] Diastolic blood 76 mmHg 76 mmHg [facility] Systolic blood 114 mmHg 114 mmHg [facility] Heart rate 78 bpm 78 bpm [facility] Diastolic blood 71 mmHg 71 mmHg [facility] Systolic blood 111 mmHg 111 mmHg [facility] Respiratory rate 22 bpm 22 bpm [facility] Heart rate 74 bpm 74 bpm [facility] Body temperature 98.1 Fahrenheit 98.1 Fahrenhei t [facility] Diastolic blood 65 mmHg 65 mmHg [facility] Systolic blood 90 mmHg 90 mmHg [facility] Heart rate 87 bpm 87 bpm [facility] Diastolic blood 64 mmHg 64 mmHg [facility] Systolic blood 97 mmHg 97 mmHg [facility] Respiratory rate 18 bpm 18 bpm [facility] Heart rate 83 bpm 83 bpm [facility] Body temperature 96.8 Fahrenheit 96.8 Fahrenhei t [facility] Diastolic blood 72 mmHg 72 mmHg [facility] Systolic blood 103 mmHg 103 mmHg [facility] Heart rate 75 bpm 75 bpm [facility] Diastolic blood 71 mmHg 71 mmHg [facility] Systolic blood 103 mmHg 103 mmHg [facility] Respiratory rate 18 bpm 18 bpm [facility] Heart rate 75 bpm 75 bpm [facility] Body temperature 97.6 Fahrenheit 97.6 Fahrenhei t [facility] Diastolic blood 67 mmHg 67 mmHg [facility] Systolic blood 97 mmHg 97 mmHg [facility] Respiratory rate 18 bpm 18 bpm [facility] Heart rate 83 bpm 83 bpm [facility] Respiratory rate 18 bpm 18 bpm [facility] Heart rate 78 bpm 78 bpm [facility] Body temperature 96.8 Fahrenheit 96.8 Fahrenhei t [facility] Diastolic blood 65 mmHg 65 mmHg [facility] Systolic blood 100 mmHg 100 mmHg [facility] Diastolic blood 62 mmHg 62 mmHg [facility] Systolic blood 88 mmHg 88 mmHg [facility] Heart rate 88 bpm 88 bpm [facility] Diastolic blood 58 mmHg 58 mmHg [facility] Systolic blood 94 mmHg 94 mmHg [facility] Deprecated 97 % 97 % [facility] saturation in Hospital Capillary blood by Oximetry Respiratory rate 18 bpm 18 bpm [facility] Heart rate 81 bpm 81 bpm [facility] Body temperature 97.1 Fahrenheit 97.1 Fahrenhei t [facility] Diastolic blood 67 mmHg 67 mmHg [facility] Systolic blood 102 mmHg 102 mmHg [facility] Respiratory rate 20 bpm 20 bpm [facility] Heart rate 74 bpm 74 bpm [facility] Body temperature 98.0 Fahrenheit 98.0 Fahrenhei t [facility] Diastolic blood 67 mmHg 67 mmHg [facility] Systolic blood 102 mmHg 102 mmHg [facility] Respiratory rate 20 bpm 20 bpm [facility] Heart rate 79 bpm 79 bpm [facility] Body temperature 98.0 Fahrenheit 98.0 Fahrenhei t [facility] Body temperature 98.8 Fahrenheit 98.8 Fahrenhei t [facility] Diastolic blood 59 mmHg 59 mmHg [facility] Systolic blood 94 mmHg 94 mmHg [facility] Respiratory rate 18 bpm 18 bpm [facility] Heart rate 84 bpm 84 bpm [facility] Diastolic blood 70 mmHg 70 mmHg [facility] Systolic blood 106 mmHg 106 mmHg [facility] Heart rate 75 bpm 75 bpm [facility] Diastolic blood 68 mmHg 68 mmHg [facility] Systolic blood 107 mmHg 107 mmHg [facility] Respiratory rate 18 bpm 18 bpm [facility] Heart rate 73 bpm 73 bpm [facility] Body temperature 98.0 Fahrenheit 98.0 Fahrenhei t [facility] Diastolic blood 73 mmHg 73 mmHg [facility] Systolic blood 117 mmHg 117 mmHg [facility] Heart rate 82 bpm 82 bpm [facility] Diastolic blood 67 mmHg 67 mmHg [facility] Systolic blood 109 mmHg 109 mmHg [facility] Respiratory rate 18 bpm 18 bpm [facility] Heart rate 76 bpm 76 bpm [facility] Body temperature 98.4 Fahrenheit 98.4 Fahrenhei t [facility] Respiratory rate 18 bpm 18 bpm [facility] Body temperature 98.0 Fahrenheit 98.0 Fahrenhei t [facility] Diastolic blood 73 mmHg 73 mmHg [facility] Systolic blood 108 mmHg 108 mmHg [facility] Heart rate 74 bpm 74 bpm [facility] Diastolic blood 72 mmHg 72 mmHg [facility] Systolic blood 109 mmHg 109 mmHg [facility] Respiratory rate 18 bpm 18 bpm [facility] Heart rate 76 bpm 76 bpm [facility] Body temperature 98.0 Fahrenheit 98.0 Fahrenhei t [facility] Diastolic blood 75 mmHg 75 mmHg [facility] Systolic blood 108 mmHg 108 mmHg [facility] Heart rate 82 bpm 82 bpm [facility] Diastolic blood 72 mmHg 72 mmHg [facility] Systolic blood 109 mmHg 109 mmHg [facility] Respiratory rate 18 bpm 18 bpm [facility] Heart rate 79 bpm 79 bpm [facility] Body temperature 98.3 Fahrenheit 98.3 Fahrenhei t [facility] Diastolic blood 69 mmHg 69 mmHg [facility] Systolic blood 101 mmHg 101 mmHg [facility] Heart rate 72 bpm 72 bpm [facility] Diastolic blood 71 mmHg 71 mmHg [facility] Systolic blood 108 mmHg 108 mmHg [facility] Respiratory rate 18 bpm 18 bpm [facility] Heart rate 70 bpm 70 bpm [facility] Body temperature 97.7 Fahrenheit 97.7 Fahrenhei t [facility] Diastolic blood 70 mmHg 70 mmHg [facility] Systolic blood 107 mmHg 107 mmHg [facility] Heart rate 82 bpm 82 bpm [facility] Diastolic blood 79 mmHg 79 mmHg [facility] Systolic blood 102 mmHg 102 mmHg [facility] Respiratory rate 18 bpm 18 bpm [facility] Heart rate 79 bpm 79 bpm [facility] Body temperature 97.5 Fahrenheit 97.5 Fahrenhei t [facility] Diastolic blood 71 mmHg 71 mmHg [facility] Systolic blood 116 mmHg 116 mmHg [facility] Respiratory rate 18 bpm 18 bpm [facility] Heart rate 79 bpm 79 bpm [facility] Diastolic blood 75 mmHg 75 mmHg [facility] Systolic blood 115 mmHg 115 mmHg [facility] Respiratory rate 18 bpm 18 bpm [facility] Heart rate 76 bpm 76 bpm [facility] Body temperature 98.2 Fahrenheit 98.2 Fahrenhei t [facility] Diastolic blood 88 mmHg 88 mmHg [facility] Systolic blood 146 mmHg 146 mmHg [facility] Respiratory rate 18 bpm 18 bpm [facility] Heart rate 67 bpm 67 bpm [facility] Body temperature 97.5 Fahrenheit 97.5 Fahrenhei t [facility] Diastolic blood 69 mmHg 69 mmHg [facility] Systolic blood 107 mmHg 107 mmHg [facility] Respiratory rate 18 bpm 18 bpm [facility] Heart rate 81 bpm 81 bpm [facility] Body weight 124 lbs 124 lbs [facility] Diastolic blood 71 mmHg 71 mmHg [facility] Systolic blood 105 mmHg 105 mmHg [facility] Respiratory rate 18 bpm 18 bpm [facility] Heart rate 78 bpm 78 bpm [facility] Body temperature 99.1 Fahrenheit 99.1 Fahrenhei t [facility] Diastolic blood 71 mmHg 71 mmHg [facility] Systolic blood 126 mmHg 126 mmHg [facility] Heart rate 71 bpm 71 bpm [facility] Diastolic blood 76 mmHg 76 mmHg [facility] Systolic blood 108 mmHg 108 mmHg [facility] Deprecated 97 % 97 % [facility] saturation in Hospital Capillary blood by Oximetry Respiratory rate 18 bpm 18 bpm [facility] Heart rate 72 bpm 72 bpm [facility] Body temperature 97.8 Fahrenheit 97.8 Fahrenhei t [facility] Diastolic blood 67 mmHg 67 mmHg [facility] Systolic blood 103 mmHg 103 mmHg [facility] Heart rate 77 bpm 77 bpm [facility] Diastolic blood 76 mmHg 76 mmHg [facility] Systolic blood 109 mmHg 109 mmHg [facility] Respiratory rate 18 bpm 18 bpm [facility] Heart rate 78 bpm 78 bpm [facility] Body temperature 98.2 Fahrenheit 98.2 Fahrenhei t [facility] Respiratory rate 18 bpm 18 bpm [facility] Body temperature 98.5 Fahrenheit 98.5 Fahrenhei t [facility] Diastolic blood 69 mmHg 69 mmHg [facility] Systolic blood 97 mmHg 97 mmHg [facility] Heart rate 75 bpm 75 bpm [facility] Diastolic blood 70 mmHg 70 mmHg [facility] Systolic blood 102 mmHg 102 mmHg [facility] Respiratory rate 18 bpm 18 bpm [facility] Heart rate 79 bpm 79 bpm [facility] Diastolic blood 76 mmHg 76 mmHg [facility] Systolic blood 112 mmHg 112 mmHg [facility] Respiratory rate 18 bpm 18 bpm [facility] Heart rate 71 bpm 71 bpm [facility] Body temperature 98.2 Fahrenheit 98.2 Fahrenhei t [facility] Diastolic blood 71 mmHg 71 mmHg [facility] Systolic blood 109 mmHg 109 mmHg [facility] Respiratory rate 18 bpm 18 bpm [facility] Heart rate 81 bpm 81 bpm [facility] Diastolic blood 77 mmHg 77 mmHg [facility] Systolic blood 114 mmHg 114 mmHg [facility] Respiratory rate 18 bpm 18 bpm [facility] Heart rate 81 bpm 81 bpm [facility] Body temperature 97.9 Fahrenheit 97.9 Fahrenhei t [facility] Diastolic blood 76 mmHg 76 mmHg [facility] Systolic blood 115 mmHg 115 mmHg [facility] Respiratory rate 18 bpm 18 bpm [facility] Heart rate 73 bpm 73 bpm [facility] Body temperature 96.4 Fahrenheit 96.4 Fahrenhei t [facility] Diastolic blood 88 mmHg 88 mmHg [facility] Systolic blood 129 mmHg 129 mmHg [facility] Respiratory rate 18 bpm 18 bpm [facility] Heart rate 73 bpm 73 bpm [facility] Body temperature 96.4 Fahrenheit 96.4 Fahrenhei t [facility] Diastolic blood 76 mmHg 76 mmHg [facility] Systolic blood 114 mmHg 114 mmHg [facility] Heart rate 77 bpm 77 bpm [facility] Diastolic blood 71 mmHg 71 mmHg [facility] Systolic blood 108 mmHg 108 mmHg [facility] Respiratory rate 18 bpm 18 bpm [facility] Heart rate 77 bpm 77 bpm [facility] Body temperature 97.1 Fahrenheit 97.1 Fahrenhei t [facility] Diastolic blood 68 mmHg 68 mmHg [facility] Systolic blood 105 mmHg 105 mmHg [facility] Deprecated 99 % 99 % [facility] Oxygen [facility] saturation in Hospital Capillary blood by Oximetry Respiratory rate 18 bpm 18 bpm [facility] Heart rate 80 bpm 80 bpm [facility] Diastolic blood 71 mmHg 71 mmHg [facility] Systolic blood 99 mmHg 99 mmHg [facility] Deprecated 99 % 99 % [facility] Oxygen [facility] saturation [facility] Hospital Capillary blood by Oximetry Respiratory rate 18 bpm 18 bpm [facility] Heart rate 78 bpm 78 bpm [facility] Diastolic blood 75 mmHg 75 mmHg [facility] Systolic blood 107 mmHg 107 mmHg [facility] Respiratory rate 18 bpm 18 bpm [facility] Heart rate 75 bpm 75 bpm [facility] Body temperature 97.9 Fahrenheit 97.9 Fahrenh t [facility] Diastolic blood 60 mmHg 60 mmHg [facility] Systolic blood 95 mmHg 95 mmHg [facility] Heart rate 80 bpm 80 bpm [facility] Body temperature 97.4 Fahrenheit 97.4 Fahrenhei t [facility] Diastolic blood 65 mmHg 65 mmHg [facility] Systolic blood 99 mmHg 99 mmHg [facility] Respiratory rate 16 bpm 16 bpm [facility] Heart rate 76 bpm 76 bpm [facility] Diastolic blood 68 mmHg 68 mmHg [facility] Systolic blood 103 mmHg 103 mmHg [facility] Heart rate 86 bpm 86 bpm [facility] Diastolic blood 54 mmHg 54 mmHg [facility] Systolic blood 99 mmHg 99 mmHg [facility] Respiratory rate 18 bpm 18 bpm [facility] Heart rate 87 bpm 87 bpm [facility] Body temperature 98.9 Fahrenheit 98.9 Fahrenhei t [facility] Body weight 129 lbs 129 lbs [facility] Diastolic blood 68 mmHg 68 mmHg [facility] Systolic blood 104 mmHg 104 mmHg [facility] Respiratory rate 18 bpm 18 bpm [facility] Heart rate 86 bpm 86 bpm [facility] Body temperature 95.8 Fahrenheit 95.8 Fahrenhei t [facility] Diastolic blood 68 mmHg 68 mmHg [facility] Systolic blood 103 mmHg 103 mmHg [facility] Respiratory rate 18 bpm 18 bpm [facility] Heart rate 74 bpm 74 bpm [facility] Body temperature 97.5 Fahrenheit 97.5 Fahrenhei t [facility] Diastolic blood 59 mmHg 59 mmHg [facility] Systolic blood 87 mmHg 87 mmHg [facility] Heart rate 80 bpm 80 bpm [facility] Diastolic blood 65 mmHg 65 mmHg [facility] Systolic blood 98 mmHg 98 mmHg [facility] Respiratory rate 17 bpm 17 bpm [facility] Heart rate 75 bpm 75 bpm [facility] Body temperature 96.9 Fahrenheit 96.9 Fahrenhei t [facility] Diastolic blood 57 mmHg 57 mmHg [facility] Systolic blood 96 mmHg 96 mmHg [facility] Heart rate 78 bpm 78 bpm [facility] Diastolic blood 60 mmHg 60 mmHg [facility] Systolic blood 85 mmHg 85 mmHg [facility] Respiratory rate 18 bpm 18 bpm [facility] Heart rate 76 bpm 76 bpm [facility] Body temperature 99.0 Fahrenheit 99.0 Fahrenhei t [facility] Body weight 128 lbs 128 lbs [facility] Diastolic blood 68 mmHg 68 mmHg [facility] Systolic blood 108 mmHg 108 mmHg [facility] Respiratory rate 18 bpm 18 bpm [facility] Heart rate 73 bpm 73 bpm [facility] Body temperature 96.2 Fahrenheit 96.2 Fahrenhei t [facility] Diastolic blood 64 mmHg 64 mmHg [facility] Systolic blood 96 mmHg 96 mmHg [facility] Respiratory rate 18 bpm 18 bpm [facility] Heart rate 80 bpm 80 bpm [facility] Diastolic blood 59 mmHg 59 mmHg [facility] Systolic blood 92 mmHg 92 mmHg [facility] Respiratory rate 18 bpm 18 bpm [facility] Heart rate 72 bpm 72 bpm [facility] Body temperature 97.5 Fahrenheit 97.5 Fahrenhei t [facility] Diastolic blood 61 mmHg 61 mmHg [facility] Systolic blood 95 mmHg 95 mmHg [facility] Heart rate 83 bpm 83 bpm [facility] Body weight 125 lbs 125 lbs [facility] Diastolic blood 67 mmHg 67 mmHg [facility] Systolic blood 100 mmHg 100 mmHg [facility] Deprecated 98 % 98 % [facility] saturation in Hospital Capillary blood by Oximetry Respiratory rate 16 bpm 16 bpm [facility] Heart rate 77 bpm 77 bpm [facility] Body temperature 98.2 Fahrenheit 98.2 Fahrenhei t [facility] Diastolic blood 69 mmHg 69 mmHg [facility] Systolic blood 105 mmHg 105 mmHg [facility] Respiratory rate 18 bpm 18 bpm [facility] Heart rate 74 bpm 74 bpm [facility] Body weight 128 lbs 128 lbs [facility] Diastolic blood 58 mmHg 58 mmHg [facility] Systolic blood 94 mmHg 94 mmHg [facility] Deprecated 97 % 97 % [facility] saturation in Hospital Capillary blood by Oximetry Respiratory rate 18 bpm 18 bpm [facility] Heart rate 81 bpm 81 bpm [facility] Body temperature 99.2 Fahrenheit 99.2 Fahrenhei t [facility] Diastolic blood 66 mmHg 66 mmHg [facility] Systolic blood 106 mmHg 106 mmHg [facility] Respiratory rate 18 bpm 18 bpm [facility] Heart rate 78 bpm 78 bpm [facility] Diastolic blood 61 mmHg 61 mmHg [facility] Systolic blood 99 mmHg 99 mmHg [facility] Respiratory rate 18 bpm 18 bpm [facility] Heart rate 73 bpm 73 bpm [facility] Body temperature 95.5 Fahrenheit 95.5 Fahrenhei t [facility] Diastolic blood 66 mmHg 66 mmHg [facility] Systolic blood 97 mmHg 97 mmHg [facility] Respiratory rate 18 bpm 18 bpm [facility] Heart rate 78 bpm 78 bpm [facility] Diastolic blood 68 mmHg 68 mmHg [facility] Systolic blood 100 mmHg 100 mmHg [facility] Respiratory rate 18 bpm 18 bpm [facility] Heart rate 70 bpm 70 bpm [facility] Body temperature 96.1 Fahrenheit 96.1 Fahrenhei t [facility] Diastolic blood 64 mmHg 64 mmHg [facility] Systolic blood 94 mmHg 94 mmHg [facility] Respiratory rate 18 bpm 18 bpm [facility] Heart rate 92 bpm 92 bpm [facility] Diastolic blood 57 mmHg 57 mmHg [facility] Systolic blood 92 mmHg 92 mmHg [facility] Respiratory rate 18 bpm 18 bpm [facility] Heart rate 89 bpm 89 bpm [facility] Body temperature 97.4 Fahrenheit 97.4 Fahrenhei t [facility] Diastolic blood 68 mmHg 68 mmHg [facility] Systolic blood 96 mmHg 96 mmHg [facility] Heart rate 88 bpm 88 bpm [facility] Diastolic blood 61 mmHg 61 mmHg [facility] Systolic blood 92 mmHg 92 mmHg [facility] Deprecated 97 % 97 % [facility] saturation in Hospital Capillary blood by Oximetry Respiratory rate 18 bpm 18 bpm [facility] Heart rate 78 bpm 78 bpm [facility] Body temperature 97.8 Fahrenheit 97.8 Fahrenhei t [facility] Body weight 124 lbs 124 lbs [facility] Diastolic blood 62 mmHg 62 mmHg [facility] Systolic blood 106 mmHg 106 mmHg [facility] Respiratory rate 18 bpm 18 bpm [facility] Heart rate 87 bpm 87 bpm [facility] Diastolic blood 68 mmHg 68 mmHg [facility] Systolic blood 108 mmHg 108 mmHg [facility] Respiratory rate 18 bpm 18 bpm [facility] Heart rate 83 bpm 83 bpm [facility] Body temperature 94.4 Fahrenheit 94.4 Fahrenhei t [facility] Diastolic blood 66 mmHg 66 mmHg [facility] Systolic blood 100 mmHg 100 mmHg [facility] Respiratory rate 18 bpm 18 bpm [facility] Heart rate 95 bpm 95 bpm [facility] Diastolic blood 74 mmHg 74 mmHg [facility] Systolic blood 108 mmHg 108 mmHg [facility] Respiratory rate 18 bpm 18 bpm [facility] Heart rate 93 bpm 93 bpm [facility] Body temperature 97.8 Fahrenheit 97.8 Fahrenhei t [facility] Diastolic blood 72 mmHg 72 mmHg [facility] Systolic blood 110 mmHg 110 mmHg [facility] Respiratory rate 18 bpm 18 bpm [facility] Heart rate 88 bpm 88 bpm [facility] Body temperature 97.5 Fahrenheit 97.5 Fahrenhei t [facility] Heart rate 102 bpm 102 bpm [facility] Diastolic blood 65 mmHg 65 mmHg [facility] Systolic blood 95 mmHg 95 mmHg [facility] Diastolic blood 77 mmHg 77 mmHg [facility] Systolic blood 111 mmHg 111 mmHg [facility] Respiratory rate 18 bpm 18 bpm [facility] Heart rate 100 bpm 100 bpm [facility] Body temperature 97.6 Fahrenheit 97.6 Fahrenhei t [facility] Body weight 116 lbs 116 lbs [facility] Diastolic blood 71 mmHg 71 mmHg [facility] Systolic blood 107 mmHg 107 mmHg [facility] Deprecated 106 % 106 % [facility] Oxygen [facility] saturation in Hospital Capillary blood by Oximetry Respiratory rate 18 bpm 18 bpm [facility] Heart rate 93 bpm 93 bpm [facility] Body temperature 96.9 Fahrenheit 96.9 Fahrenhei t [facility] Body weight 116 lbs 116 lbs [facility] Diastolic blood 92 mmHg 92 mmHg [facility] Systolic blood 132 mmHg 132 mmHg [facility] Deprecated 106 % 106 % [facility] Oxygen [facility] saturation in Hospital Capillary blood by Oximetry Respiratory rate 18 bpm 18 bpm [facility] Heart rate 87 bpm 87 bpm [facility] Body temperature 96.9 Fahrenheit 96.9 Fahrenhei t [facility] Diastolic blood 62 mmHg 62 mmHg [facility] Systolic blood 87 mmHg 87 mmHg [facility] Respiratory rate 18 bpm 18 bpm [facility] Heart rate 101 bpm 101 bpm [facility] Body weight 115 lbs 115 lbs [facility] Diastolic blood 79 mmHg 79 mmHg [facility] Systolic blood 105 mmHg 105 mmHg [facility] Respiratory rate 18 bpm 18 bpm [facility] Heart rate 100 bpm 100 bpm [facility] Body temperature 97.5 Fahrenheit 97.5 Fahrenh t [facility] Body weight 116 lbs 116 lbs [facility] Diastolic blood 63 mmHg 63 mmHg [facility] Systolic blood 92 mmHg 92 mmHg [facility] Respiratory rate 18 bpm 18 bpm [facility] Heart rate 102 bpm 102 bpm [facility] Diastolic blood 72 mmHg 72 mmHg [facility] Systolic blood 123 mmHg 123 mmHg [facility] Respiratory rate 18 bpm 18 bpm [facility] Heart rate 100 bpm 100 bpm [facility] Body temperature 98.8 Fahrenheit 98.8 Fahrenhei t [facility] Diastolic blood 64 mmHg 64 mmHg [facility] Systolic blood 103 mmHg 103 mmHg [facility] Heart rate 127 bpm 127 bpm [facility] Diastolic blood 82 mmHg 82 mmHg [facility] Systolic blood 124 mmHg 124 mmHg [facility] Respiratory rate 18 bpm 18 bpm [facility] Heart rate 112 bpm 112 bpm [facility] Body temperature 98.6 Fahrenheit 98.6 Fahrenhei t [facility] Diastolic blood 69 mmHg 69 mmHg [facility] Systolic blood 98 mmHg 98 mmHg [facility] Deprecated 99 % 99 % [facility] Oxygen [facility] saturation in Hospital Capillary blood by Oximetry Respiratory rate 18 bpm 18 bpm [facility] Heart rate 98 bpm 98 bpm [facility] Body temperature 97.8 Fahrenheit 97.8 Fahrenhei t [facility] Diastolic blood 82 mmHg 82 mmHg [facility] Systolic blood 114 mmHg 114 mmHg [facility] Deprecated 98 % 98 % [facility] Oxygen [facility] saturation in Hospital Capillary blood by Oximetry Respiratory rate 18 bpm 18 bpm [facility] Heart rate 107 bpm 107 bpm [facility] Body temperature 98.2 Fahrenheit 98.2 Fahrenh t [facility] Diastolic blood 63 mmHg 63 mmHg [facility] Systolic blood 92 mmHg 92 mmHg [facility] [facility] Heart rate 113 bpm 113 bpm [facility] Diastolic blood 74 mmHg 74 mmHg [facility] Systolic blood 105 mmHg 105 mmHg [facility] Respiratory rate 19 bpm 19 bpm [facility] Heart rate 109 bpm 109 bpm [facility] Body temperature 98.3 Fahrenheit 98.3 hrenh t [facility] Oxygen 98 % 98 % NEXTGEN saturation in ([facility]) Body mass index 20.18 kg/m2 20.18 kg/m2 NEXTGEN (BMI) [Ratio] ([facility]) Body temperature 36.67 Sugar 36.67 [facility] Heart rate 110 /min 110 /min [facility] Diastolic blood 88 mm[Hg] 88 mm[Hg] NEXTGEN pressure ([facility]) Systolic blood 132 mm[Hg] 132 mm[Hg] [facility] ([facility] Body weight 56.699 kg 56.699 kg [facility] ([facility]) Body height 167.64 cm 167.64 cm [facility]) ID Date Data Source [id number] 03/02/2020 01:50:59 PM EDT [facility] Name Value Range Interpretation Code Description Data Source(s) Body weight Measured 135 lb 135 lb [facility] Body weight Measured 134 lb 134 lb [facility] Body weight Measured 124 lb 124 lb [facility] Body weight Measured 129 lb 129 lb [facility] Body weight Measured 128 lb 128 lb [facility] Body weight Measured 125 lb 125 lb [facility] Body weight Measured 128 lb 128 lb [facility] Body weight Measured 124 lb 124 lb [facility] Body weight Measured 116 lb 116 lb [facility] Body weight Measured 115 lb 115 lb [facility] Body weight Measured 116 lb 116 lb [facility] Patient Treatment Plan of Care Planned Activity Planned Date Details Description Data Source (s) 24 HR metoprolol 04/15/2020 12:00:00 NEXT GEN ([facility] succinate 25 MG Extended AM [facility] Medical Release Oral Tablet Center) [Toprol] 24 HR metoprolol 04/15/2020 12:00:00 NEXT GEN ([facility] succinate 25 MG Extended AM [facility]T [facility] Oral Tablet [facility]) [Toprol] 24 HR metoprolol 04/15/2020 12:00:00 NEXT GEN ([facility] succinate 50 MG Extended AM [facility] Medical Release Oral Tablet Center) [Toprol] 24 HR metoprolol 04/15/2020 12:00:00 NEXT GEN ([facility] succinate 50 MG Extended AM [facility] Medical Release Oral Tablet Center) [Toprol] POLYETHYLENE GLYCOL 3350 04/15/2020 12:00:00 NEXTGEN (Saint 142 MG/ML Oral Solution AM [facility] [Miralax] Center) Omeprazole 40 MG Delayed 04/15/2020 12:00:00 NEXTGEN (Saint Release Oral Capsule AM [facility]) Omeprazole 40 MG Delayed 03/15/2020 12:00:00 NEXTGEN (Saint Release Oral Capsule AM [facility]) 24 HR metoprolol 03/15/2020 12:00:00 NEXT GEN (Saint succinate 50 MG Extended AM [facility] Medical Release Oral Tablet Center) [Toprol] Mirtazapine 30 MG Oral 03/15/2020 12:00:00 [facility] ([facility] Tablet [Remeron] AM [facility]) Haldol Decanoate 100 03/15/2020 12:00:00 NEXTGEN (Saint mg/mL intramuscular [facility]) benztropine mesylate 1 MG 03/15/2020 12:00:00 NEXTGEN (Saint Oral Tablet [facility]) Trazodone Hydrochloride 03/15/2020 12:00:00 NEXTGEN (Saint 150 MG Oral Tablet [facility]) Clozaril 50 mg tablet 03/15/2020 12:00:00 NEXTGEN (Saint [facility]) POLYETHYLENE GLYCOL 3350 11/13/2018 12:00:00 NEXTGEN (Saint 142 MG/ML Oral Solution [facility] [Miralax] [place]) Clotrimazole 10 MG/ML 11/13/2018 12:00:00 NEXTGEN (Saint Topical Cream [Lotrimin] [facility]) Clozapine 100 MG Oral 11/13/2018 12:00:00 NEXTGEN (Saint Tablet [facility]) benztropine mesylate 1 MG 08/14/2018 12:00:00 NEXTGEN (Saint Oral Tablet [facility]) 24 HR Bupropion 08/14/2018 12:00:00 NEXTG EN (Saint Hydrochloride 300 MG [facility] Extended Release [facility] ) Tablet [Wellbutrin] Trazodone Hydrochloride 08/14/2018 12:00:00 NEXTGEN (Saint [address] [facility]) Metoprolol Tartrate 25 MG 08/14/2018 12:00:00 NEXTGEN (Saint Oral Tablet [facility]) Risperidone 2 MG Oral 11/13/2017 12:00:00 NEXTGEN (Saint Tablet [Risperdal] [facility])
[2020-04-21 07:16] VITALS: BMI 21.4
[2020-04-21] MEDS ORDERED: PROPOFOL 20 ML ONE (08:15)
[2020-04-21] MEDS ORDERED: KETAMINE HCL 200 MG/20 ML VIAL ONE (08:15)
[2020-04-21] MEDS ORDERED: SUCCINYLCHOLINE CHLORIDE 200 MG/10 ML SYRINGE ONE (08:15)
[2020-04-21 09:17] VITALS: PULSE 72; TEMP 98
[2020-04-21 10:42] VITALS: BP 110/72
== END 2020-04-21 10:20 | disposition home or self-care (01) ==
LOC: FECT 06:35
PROVIDERS: ATTEND Psychiatry & Neurology Psychiatry
PROC: GZB4ZZZ Other Electroconvulsive Therapy (ICD-10-PCS; principal; 2020-04-21 10:30)
DX: F32.9 Major depressive disorder, single episode, unspecified (principal)
CPT/HCPCS: 90870; 94760

== ENCOUNTER 2020-05-05 06:04 | Day surgery (SDC) | payer OTHER ==
--- OUTSIDE RECORDS SUMMARY | 2020-04-28 13:02 | XMS ---
:1980 Author Organization [facility] Care Team Providers Name Role Phone COON DASHAWN PERSAUD Unavailable Unavailable RAMONITA WYMAN MD Unavailable Unavailable MD BENTLEY Unavailable Unavailable HINDU, HUMAYUN Unavailable Unavailable Coon Unavailable Unavailable Coon Unavailable Unavailable Coon Unavailable Unavailable Coon Unavailable Unavailable Coon Unavailable Unavailable Coon Unavailable Unavailable TRUDY VALENTE MD Unavailable Unavailable HHCCC Unavailable Unavailable MD LC Unavailable Unavailable KEILA REYNOSO Unavailable Unavailable LC Demarco Unavailable Unavailable GUPTA, PRECISION AGRICULTURE SPECIALIST Unavailable Unavailable ZUNASSIGNED Unavailable Unavailable ZUNASSIGNED@, Unavailable [...] is protected by Article 27-F of the [facility] Public Health law. If you continue you may haveaccess to information: Regarding HIV / AIDS; Provided by facilities licensed or operated by the [facility] Office of Mental Health; or Provided by the [facility] Office for People With Developmental Disabilities. If such information is present, then the following [facility] mandated warning applies: This information has [...] law may result in a fine or usp sentence or both. A general authorization for the release of medical or other information is NOT sufficient authorization for further disclosure. Family History Family Member Family Member Family Member Date of Description Data Source(s) Name Gender Status Status Unknown Male Problem [facility]00 AM [facility] EDT Center) Encounters Encounter Providers Location Date Indications Data Source(s ) Outpatient 07/12/2020 [facility] 12:04:00 PM Medical Kev ENRIQUEZ Outpatient Attender: 07/12/2020 [facility] NIRIGNEDAdmitter: 12:00:00 AM [facility] ZUNASSIGNEDReferrer: EST [id number] [email or web address]@, Outpatient Attender: PMH9 [facility] 04/18/2020 [facility] ([facility] 05:49:36 PM Health Care EDT Collaborative) Patient admitted. [facility] 04/[facility]2020 [facility] 09:55:00 AM EDT ([facility] 04/15/2020 [facility] 09:55:00 AM EDT Medical [place]) Attender: [place] 04/12/2020 [facility] 10:07:00 AM EDT ([facility] 04/12/2020 [facility] 10:07:00 AM EDT Medical [place]) Attender: [facility] [place] 04/08/2020 [facility] 11:04:00 AM EDT ([facility] 04/08/2020 [facility] 11:04:00 AM EDT Medical [place]) Attender: [facility] [place] 03/23/2020 [facility] 12:46:00 PM EDT (Oskar t - 03/23/2020 [facility] 12:46:00 PM EDT Medical Center) Outpatient 03/22/2020 [facility] 01:11:00 PM EDT Medical Center Outpatient Attender: DASHAWN Kaur 03/22/2020 [facility] RICHRISTINA RODRIGO 11:47:00 AM EDT Medica l BAdmitter: AMMIR Center CO RODRIGO BReferrer: AMANNE-MARIE Matute OutpatientOFFICE/OUT Attender: [place] 03/22/2020 N EXTGEN PATIENT VISIT, [facility] 11:47:00 AM EDT ([facility] - 03/22/2020 [facility] 11:47:00 AM EDT Medical Center) Outpatient 03/22/2020 [facility] 12:00:00 AM EDT Medical Center Outpatient 03/15/2020 [facility] 12:24:00 PM EDT Medical Center Outpatient Attender: DASHAWN Kaur 03/15/2020 [facility] 12:19:00 PM EDT Medica l [facility]Admitter: [facility] BReferrer: DASHAWN Matute OutpatientWell Attender: [place] 03/15/2020 NEXTGEN Visit, [facility] 12:19:00 PM EDT (Oskar patton Est,18-39years - 03/15/2020 Porfirio s 12:19:00 PM EDT Medical Center) Attender: [place] 03/15/2020 [facility] 09:05:00 AM EDT (Oskar patton - 03/15/2020 [facility] 09:05:00 AM EDT Medical Center) Outpatient 03/15/2020 [facility] 12:00:00 AM EDT Medical Center Attender: [place] 03/14/2020 [facility] 11:56:00 AM EDT (Oskar t - 03/14/2020 [facility] 11:56:00 AM EDT Medical Center) Outpatient Attender: 03/09/2020 [facility] GEORGE 07:01:00 AM [facility] GE[facility]GE Gamblemitter: GEORGE VAZQUEZ MReferrer: GEORGE Demarco Outpatient Attender: [facility] 02/13/2020 [facility] 12:57:38 PM EDT ([facility] ) Patient admitted. Inpatient Attender: RAMONITA [facility] 11/15/2019 03:16:00 S [facility]inaSt[facility] Luke's HospitalZAdmitter: ALMAZ PM EDT - 02/16/2020 [facility] 10:48:00 PM EDT Patient discharged. Outpatient [facility] 11/15/2019 02:10:00 PM EDT - [address] [place] [address] 04:57:00 PM EDT Patient discharged. Outpatient Attender: [address] 10/13/2019 02:55:09 PM GSI ([facility] EDT [facility]) Patient admitted. Outpatient Attender: [address] 10/02/2019 07:07:41 AM [facility] Patient admitted. Outpatient Attender: GEORGE Kaur 09/29/2019 01:06:00 [facility] LCRASHEED VAZQUEZ EDT Center MAdmitter: GEORGE VAZQUEZ MReferrer: GEORGE Demarco Outpatient Attender: ALVARO 09/07/2019 01:27:00 R56.9 [facility] HINDU, [facility] Center[facility]Referrer: Debbie VALENTE MD R56.9 Outpatient Attender: 09/03/2019 [facility] GEORGE 10:10:00 AM [facility] LC VAZUQEZ MAdmitter: GEORGE VAZQUEZ MReferrer: GEORGE Demarco Outpatient Attender: 08/05/2019 [facility] GEORGE 11:51:00 AM [facility] LC Gamblemitter: GEORGE VAZQUEZ MReferrer: GEORGE Demarco Outpatient Attender: 07/10/2019 [facility] GEORGE 07:01:00 AM [facility] LC VAZQUEZ MAdmitter: GEORGE VAZQUEZ MReferrer: GEORGE Demarco Attender: [place] 06/19/2019 NEXTGEN ([facility] 01:26:00 PM EST Ronnie Medical - 06/19/2019 Center) 01:26:00 PM EST Outpatient 06/18/2019 [facility] 03:27:00 PM EST Medical C enter Outpatient Attender: AMMIJermaine 06/18/2019 [facility] DEBBIECHRISTINA WALLACE 10:31:00 AM EST Medica l Center BAdmitter: DASHAWN WALLACE BReferrer: DASHAWN Matute OutpatientOFFICE Attender: [place] 06/18/2019 NEXT EN ([facility] 10:31:00 AM EST [facility] Medical VISIT, [facility] - 06/18/2019 Center) 10:31:00 AM EST Attender: [place] 06/18/2019 NEXTGEN ([facility] 09:07:00 AM EST [facility] - 06/18/2019 [place]) 09:07:00 AM EST Outpatient 06/18/2019 [facility] 12:00:00 AM EST Medical C enter Outpatient Attender: 06/15/2019 [facility] GEORGE 09:28:00 AM [facility] Medical Center LC Gamblemitter: GEORGE VAZQUEZ MReferrer: GEORGE Demarco Outpatient 06/10/2019 [facility] 10:29:00 AM EST Medical C enter Outpatient 06/10/2019 [facility] 12:00:00 AM EST Medical C enter Outpatient Attender: 05/18/2019 [facility] GEORGE 12:30:00 PM [facility] Medical Center LC VAZQUEZ MAdmitter: GEORGE VAZQUEZ MReferrer: GEORGE Demarco Outpatient Attender: 04/30/2019 R13.1 HolidayKEILA Bowers 08:46:[address]T [address] [place] [address] JuAdmitter: Care Corpor[employer] ion KEILA REYNOSOReferrer: KEILA REYNOSO R13.10 Outpatient Attender: EDGARDO 04/30/2019 06:00:00 R13.10 Holiday Sheyla DoddAdmitter: AM EDT Health C are KEILA REYNOSOReferrer: KEILA REYNOSO R13.10 Outpatient Attender: GEORGE Kaur 04/22/2019 07:01:00 AM [facility] MAdmitter: GEORGE VAZQUEZ MReferrer: EGORGE Demarco Outpatient Attender: GEORGE Kaur 03/26/2019 07:01:00 AM [facility] MAdmitter: GEORGE VAZQUEZ MReferrer: GEORGE Demarco Outpatient Attender: GEORGE ECHEVARRIA 04/20/2016 10:38:00 AM [facility] KEYESY Immunizations Vaccine Date Status Description Data Source(s) New in 2011. IIV4 06/18/2019 completed Influenza, Injectable, NEXTGEN ([facility] 12:00:00 AM EST Quadrivalent [facility]) Source: New Immunization Record As of March 1999, 06/18/2019 12:00:00 completed Hep B, adult , 3 NEXTGEN ([facility] a 2-dose hepatitis B AM EST dose [facility] schedule for [place]) adolescents (11-15 year olds) was FDA approved for Merck's Recombivax HB adult formulation. Use code 43 for the 2-dose. This code should be used for any use of standard adult formulation of hepatitis B vaccine. Source: New Immunization Record Medications Medication Brand Start Product Dose Route Administrative Pharm[facility] Indications Reaction Description Data Name Date Form Instructions Instructions Source(s) POLYETHYLEN Mirala .00 ORAL active polyeth ylene NEXTGEN E GLYCOL x 17 2020 {pack glycol 3350 (Sa int 3350 142 gram 12:00: et} 59911 MG Ronnie hs MG/ML Oral oral 00 AM Powder for Me dical Solution powder EDT Oral Center) [Miralax] packet Solution Miralax 17 [Miralax] gram oral powder packet 24 HR Toprol 24 HR NEXTGE N metoprolol XL 50 2019 ed metoprolol (S aint succinate mg 12:00: [...] succinate 50 MG tablet,extended 12:00:00 AM metoprolol ( Extended Release release EDT succi aftab [place] Oral Tablet 50 MG Medical [Toprol] Toprol Extended [place]) XL 50 mg Release tablet,extended Oral Tabl et release [Toprol] Omeprazole 40 MG omeprazole 40 mg 04/15/2020 1 ORAL activ e take 1 NEXTGEN Delayed Release capsule,delayed 12:00:00 AM . capsule by ([facility] Oral Capsule release EDT [address] [...] 25 MG Medical [Toprol] Toprol { Extended Center) XL 25 mg t Release tablet,extended a Oral Tabl et release b [Toprol] l e t } Medication administered onsite 24 HR metoprolol Toprol XL 25 mg 04/15/2020 1.00 ORAL comple laureen 24 HR NEXTGEN succinate 25 MG tablet,extended 12:00:00 AM {tablet} metoprolol ([facility] Extended Release release EDT succi aftab [place] Oral Tablet 25 MG Medical [Toprol] Toprol Extended [place]) XL 25 mg Release tablet,extended Oral Tabl et release [Toprol] Medication administered onsite Clozaril 50 Clozapine 50 03/15/2020 active clozapine 50 NEXTGEN mg tablet MG Oral Tablet 12:00:00 AM MG Oral Tablet ([facility] EDT [Clozaril] [facility]) Mirtazapine Remeron 30 mg 03/15/2020 1.00 ORAL active mirtazapine 30 NEXTGEN 30 MG Oral tablet 12:00:00 AM {tabl MG O ral Tablet ([facility] Tablet EDT et} [Remeron] [facility] [Remeron] Medical Remeron 30 mg [place] ) tablet Haldol 1 ML 03/15/2020 1.00 [...] 150 MG Oral EDT every day at [place] Tablet night Medical trazodone 150 Center ) mg tablet 24 HR Toprol XL [...] (Saint Oral Tablet EDT every hs prn [place] benztropine 1 as needed M edical mg [...] completed Haldol Saint Decanoate - 12:00:00 AM Alanna AMUS Decan oate - [facility] 100 MG/1 [...] [facility] 142 MG/ML Powder for EDT Powder [facility] Oral Solution Solution Solutio n [Miralax] [...] XL 11/06/2019 3 ORAL completed Wellbutrin XL [facility] Bupropion - 150 MG ORAL 12:00:00 [...] [facility] 142 MG/ML Powder for EDT Powder [facility] Oral Solution Solution Solutio n [Miralax] [...] [facility] 142 MG/ML Powder for EST Powder [facility] Oral Solution Solution Solutio n benztropine Benztropine 09/10/2019 1 ORAL completed Benztropine Saint mesylate 1 MG Mesylate - 1 12:00:00 AM Table Mesylate - 1 [facility] Oral Tablet MG ORAL Tablet EST t MG ORAL Tablet [facility] Trazodone traZODone 09/10/2019 2 ORAL completed [...] [facility] 142 MG/ML Powder for EST Powder [facility] Oral Solution Solution Solutio n 24 HR [...] [facility] 142 MG/ML Powder for EDT Powder [facility] Oral Solution Solution Solutio n [Miralax] [...] [facility] 142 MG/ML Powder for EDT Powder [facility] Oral Solution Solution Solutio n benztropine Benztropine [...] [facility] 142 MG/ML Powder for EDT Powder [facility] Oral Solution Solution Solutio n [Miralax] [...] EDT t MG ORAL [facility] 12/10/2018 2 ORAL completed traZODone Saint Hydrochloride [...] XL 12/10/2018 1 ORAL completed Wellbutrin XL Bupropion - [...] NEXTGEN MG Oral mg tablet 12:00:00 AM apple ng, 1 at (Saint Tablet EDT noon , and 6 Ronnie hs clozapine 100 at night Me dical mg tablet Center) given by Dr andrade Clotrimazole 10 Lotrimin AF 11/13/2018 TOPICAL complete d clotrimazole NEXTGEN MG/ML Topical (clotrimazole) 12:00:00 AM 10 MG/ML (Saint Cream 1 % topical EDT Topical Crea m Shirley [Lotrimin] cream [Lotrimin] Me dical Lotrimin AF Pierce) (clotrimazole) 1 % topical cream POLYETHYLENE Miralax 17 gram 11/13/2018 1 ORAL completed polyethylene NEXTGEN GLYCOL 3350 142 oral powder 12:00:00 AM . glycol 3350 (Saint MG/ML Oral packet EDT 0 16283 MG Bryce ephs Solution 0 Powder for Medic al [Miralax] { Oral Solution C enter) Miralax 17 gram p [Miralax] oral powder a packet c k e t } Trazodone trazodone 150 08/14/2018 completed take 2 tablet NEXTGEN Hydrochloride mg tablet 12:00:00 AM by oral route (Saint 150 MG Oral EST every day at [facility] Tablet night Medical trazodone 150 [place] ) mg tablet 24 HR Bupropion Wellbutrin [...] a day Medica l mg tablet b Pierce) l e t } Metoprolol metoprolol 08/14/2018 completed take 1 tablet NEXTGEN Tartrate 25 MG tartrate 25 mg 12:00:00 AM by mouth once ( Oral Tablet tablet EST a day with Shirley metoprolol food for Medic al tartrate 25 mg tachycardi a. Pierce) tablet May cause drowsiness or dizziness. take at night Risperidone 2 Risperdal 2 mg 11/13/2017 1 ORAL completed risperidone 2 NEXTGEN MG Oral Tablet tablet 12:00:00 AM . M G Oral (Saint [Risperdal] EDT 0 Tablet Porfirio s Risperdal 2 mg 0 [Risperdal ] Medical tablet { Pierce) t a b l e t } Insurance Providers Payer name Policy type Policy ID Covered Covered republican's Policy P ned / Coverage republican ID relationship to [place] Inf ormation type robledo [facility] MEDICAID [id number] SP [id number] O P MEDICAID [id number] SP [id number] [facility] MVP/HHP [id number] self [id number] MVP/HHP O [id number] 01 [id number] 000 P MEDICAID [id number] SP [id number] [facility] [id number] SP [id number] CARE [facility] HEALTH [id number] SP [id number] CARE O [facility] MEDICAID [id number] SP [id number] [facility] Health [id number] SP [id number] Options MVP SELF PAY 00 Self 00 MEDICAID INP [id number] Self [id number] P PSYCH [facility] [id number] Self [id number] HARMONIOUS [place] [id number] SP [id number] HEALTH-MVP [facility] HEALTH [id number] SP [id number] CARE [facility] MVP [id number] Self [id number] HARMONIOUS HEALTHCARE SELF PAY 0 Self 0 MEDICAID OP [id number] Self [id number] [facility] [id number] Self [id number] HARMONIOUS [facility] [id number] self [id number] MVP/HHP O [id number] 01 [id number] MVP/HHP O [id number] 01 [id number] Problems, Conditions, and Diagnoses Code Display Name Description Problem Type Effective Data Sour ce(s) Dates D64.9 Anemia, unspecified ANEMIA, UNSPECIFIED Diagnosis [facility] 11:47:00 AM Medical Kev r EDT Z00.00 Encounter for ENCNTR FOR GENERAL Diagnosis 03/15/2020 [facility] adult ADULT MEDICAL EXAM 12:19:00 PM [facility] medical examination W/O ABNORMAL EDT without abnormal FINDINGS findings 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, HALLUCINOGEN ABUSE, Diagnosis [facility] uncomplicated UNCOMPLICATED 07:01:00 AM Medical Center EDT F10.20 Alcohol dependence, ALCOHOL DEPENDENCE, Diagnosis [facility] uncomplicated UNCOMPLICATED 07:01:00 AM Medical Center EDT F33.3 Major depressive MAJOR DEPRESSV Diagnosis 03/09/2020 Oskar Watson disorder, DISORDER, 07:01:00 AM Medical Kev r recurrent, severe RECURRENT, SEVERE W EDT with psychotic PSYCH SYMPTOMS symptoms F25.1 Schizoaffective SCHIZOAFFECTIVE Diagnosis 03/09/2020 Oskar Monroys disorder, DISORDER, 07:01:00 AM Medical Reede r depressive type DEPRESSIVE TYPE EDT R56.9 Unspecified UNSPECIFIED Diagnosis 09/07/2019 Holiday convulsions CONVULSIONS 01:27:00 PM [facility] EST Care tidy Z23 Encounter for ENCOUNTER FOR Diagnosis 06/18/2019 [facility] immunization IMMUNIZATION 10:31:00 AM Medical C enter EST F20.9 Schizophrenia, SCHIZOPHRENIA, Diagnosis 04/30/2019 [place] [facility] unspecified UNSPECIFIED 08:46:00 AM [facility] EDT [facility] F41.8 Other specified OTHER SPECIFIED Diagnosis 04/30/2019 [place] anxiety disorders ANXIETY DISORDERS 08:46:00 AM [facility] EDT [facility] K22.8 Other specified OTHER SPECIFIED Diagnosis 04/30/2019 [facility] diseases of DISEASES OF 08:46:00 AM [facility] esophagus ESOPHAGUS EDT [facility] K44.9 Diaphragmatic DIAPHRAGMATIC Diagnosis [facility]/30/[address] [facility] [address] [facility] without HERNIA WITHOUT 08:46:00 AM Count y Health obstruction or OBSTRUCTION OR EDT Care gangrene [employer] R13.10 Dysphagia, DYSPHAGIA, Diagnosis 04/30/2019 Holiday unspecified UNSPECIFIED 08:46:00 AM [facility] EDT Care [facility] Surgeries/Procedures Procedure Description Date Indications Data Source(s) OFFICE/OUTPATIENT VISIT, 03/22/2020 NEX TGEN ([facility] EST 12:00:00 AM EDT [facility] 03/22/2020 Center) 12:00:00 AM EDT Well Visit, Est,18-39years 03/15/2020 N EXTGEN ([facility] 12:00:00 AM EDT [facility] 03/15/2020 [place]) 12:00:00 AM EDT ELECTROCARDIOGRAM, 03/15/2020 NEXTGEN ( [facility] COMPLETE 12:00:00 AM EDT [facility] 03/15/2020 [place]) 12:00:00 AM EDT Vision Screening - 0 - 21 03/15/2020 NE XTGEN ([facility] y/o 12:00:00 AM EDT [facility] 03/15/2020 [place]) 12:00:00 AM EDT PURE TONE HEARING TEST, 03/15/2020 NEXT GEN ([facility] AIR 12:00:00 AM EDT [facility] 03/15/2020 [place]) 12:00:00 AM EDT ROUTINE VENIPUNCTURE 03/15/2020 NEXTGEN ([facility] 12:00:00 AM EDT [facility] 03/15/2020 [place]) 12:00:00 AM EDT OFFICE/OUTPATIENT VISIT, 06/18/2019 NEX TGEN ([facility] EST 12:00:00 AM [facility] - 06/18/2019 [place]) 12:00:00 AM EST Influenza, Injectable, 3 06/18/2019 NEX TGEN ([facility] Yrs Or Older 12:00:00 AM EST [facility] - 06/18/2019 Center) 12:00:00 AM EST Immunization 06/18/2019 NEXTGEN ([facility] Administration 12:00:00 AM EST [facility] dical - 06/18/2019 Center) 12:00:00 AM EST HEP B VACCINE, ADULT, IM 06/18/2019 NEX TGEN (Saint 12:00:00 AM [facility] - 06/18/2019 [place]) 12:00:00 AM EST Immunization 06/18/2019 NEXTGEN ([facility] Administration 12:00:00 AM EST [facility] dical - 06/18/2019 Center) 12:00:00 AM EST Results ID Date Data Source [id number] 04/25/2020 09:55:00 AM EDT [facility] Name Value Range Interpretation Description Data Sup porting Code Source(s) Document(s ) SARS [facility] coronavirus 2 RNA This lab was ordered by [facility] HUYEN mchugh [facility] and reported by [facility]. ID Date Data Source [id number] 04/17/2020 10:35:00 AM EDT [facility] Name Value Range Interpretation Description Data Sup porting Code Source(s) Document(s ) SARS [facility] coronavirus 2 RNA This lab was [facility] by [facility] and reported by [facility]. ID Date Data Source [id number] 04/11/2020 09:01:00 AM EDT [facility] Name Value Range Interpretation Description Data Sup porting Code Source(s) Document(s ) SARS [facility] coronavirus 2 RNA This lab was ordered by [facility] Melara christina [facility] and reported by [facility]. ID Date Data Source [id number] 04/04/2020 09:28:00 AM EDT [facility] Name Value Range Interpretation Description Data Sup porting Code Source(s) Document(s ) SARS [facility] coronavirus 2 RNA This lab was ordered by [facility] Melara christina [facility] and reported by [facility]. ID Date Data Source [id number] 03/28/2020 08:58:00 AM EDT [facility] Name Value Range Interpretation Description Data Sup porting Code Source(s) Document(s ) SARS [facility] coronavirus 2 RNA This lab was ordered by [facility] and reported by [facility]. ID Date Data Source [id number] 03/21/2020 09:08:00 AM EDT [facility] Name Value Range Interpretation Description Data Sup porting Code Source(s) Document(s ) SARS [facility] coronavirus 2 RNA This lab was ordered by [facility] mchugh [facility] and reported by [facility]. ID Date Data Source [id number] 03/15/2020 01:12:00 PM EDT [facility] 0 Name Value Range Interpretation Description [...] by Test d">Urine Medical strip Specific Center [place] </content>1.01 5 <content styleCode="Shana lics"> (1.015-1.025 )</content> [...] Data Source Liver 03/15/2020 01:12:00 PM EDT [facility] Profile.[id number] Name Value Range Interpretation Description Data Sup [...] s"> (0.2-1.3 MG/DL)</content> ID Date Data Source LIPID.[id number] 03/15/2020 01:12:00 PM EDT [facility] Name Value Range Interpretation Description Data Sup porting Code Source(s) Document(s ) Triglyceride < 150 <content Saint [Mass/volume] in styleCode="[facility] Serum or Plasma d">Triglycerid Medical es Center </content>105 MG/DL<content styleCode="Shana lics"> (< 150 MG/DL)</conten t> Cholesterol -<200 <content Saint [Mass/volume] in styleCode="[facility] Serum or Plasma d">Cholesterol Medical </content>166 Center MG/DL<content styleCode="Shana lics"> (-<200 MG/DL)</conten t> UNK < 100 <content Saint styleCode="Addis [place] d">LDL-Cholest Medical rosy Center </content>92 MG/DL<content styleCode="Shana lics"> (< 100 MG/DL)</conten t> UNK > 60 Below low normal <content Saint styleCode="Addis [place] d">HDL- Medical Cholesterol Center </content>53 MG/DL L<content styleCode="Shana lics"> (> 60 MG/DL)</conten t> ID Date Data Source [id number] 03/15/2020 01:12:00 PM EDT [facility] Name Value Range Interpretation Description Data [...] (0.465-4.68 MIU/L)</conten t> ID Date Data Source HematologyRou.[id number] 03/15/2020 01:12:00 PM EDT [facility] 0400 Name Value Range Interpretation Description Data [...] (< 1 %)</content> ID Date Data Source GFR(Creatinine).[id number] 03/15/2020 01:12:00 PM EDT [facility] 0-0400 Name Value Range Interpretation Code Description Data Petra rce(s) Supporting Document(s ) UNK > 60 <content [facility] styleCode="Bold"> Medical Cent er EGFR </content>100 GFR<content styleCode="Italic s"> (> 60 GFR)</content> ID Date Data Source ChemistrySpecia.[id number] 03/15/2020 01:12:00 PM EDT [facility] 0-0400 Name Value Range Interpretation Description Data Sup porting Code Source(s) Document(s ) Cobalamin [id number] Above high normal <content (Vitamin B12) styleCode="Addis Watson [Mass/volume] d">Vitamin B12 Medical in Serum or </content>> Center Plasma 1000 PG/ML H<content styleCode="Shana lics"> ([phone] PG/ML)</conten t> ID Date Data Source [id number] 03/15/2020 01:12:00 PM EDT [facility] -0400 Name Value Range Interpretation Description Data Sup porting Code Source(s) Document(s ) UNK >= 1.0 <content [facility] styleCode="Bold Medical ">AG Ratio Center </content>1.8 <content styleCode="Ital ics"> (>= 1.0 )</content> UNK 2.3-3.5 <content [facility] styleCode="Bold Medical ">Globulin Center </content>2.6 G/DL<content styleCode="Ital ics"> (2.3-3.5 G/DL)</content> Protein 6.3-8.2 <content [facility] [Mass/volum styleCode="Bold Medical e] in Serum ">Total Protein Center or Plasma </content>7.3 G/DL<content styleCode="Ital ics"> (6.3-8.2 G/DL)</content> ID Date Data Source [id number] 03/15/2020 01:12:00 PM EDT [facility] Name Value Range Interpretation Description Data Sup porting Code Source(s) Document(s ) Potassium 3.5-5.3 <content [facility] [Moles/volume] in styleCode="Bold"> [facility] Serum or Plasma Potassium Medical </content>4.0 Center MEQ/L<content styleCode="Italic s"> (3.5-5.3 MEQ/L)</content> Sodium 137-145 <content [facility] [Moles/volume] in styleCode="Bold"> [facility] Serum or Plasma Sodium Medical </content>140 Center MEQ/L<content styleCode="Italic s"> (137-145 MEQ/L)</content> UNK 9-20 <content [facility] styleCode="Bold"> [facility] BUN </content>9 Medical MG/DL<content Center styleCode="Italic s"> [...] s"> (3.5-5.0 G/DL)</content> ID Date Data Source [id number] 03/14/2020 09:02:00 AM EDT [facility] Name Value Range Interpretation Description Data Sup porting Code Source(s) Document(s ) SARS [facility] coronavirus 2 RNA This lab was ordered by MINO mchugh [facility] and reported by [facility]. ID Date Data Source [id number] 03/08/2020 09:07:00 AM EDT [facility] Name Value Range Interpretation Description Data Sup porting Code Source(s) Document(s ) SARS [facility] coronavirus 2 RNA This lab was ordered by [facility] and reported by [facility]. ID Date Data Source [id number] 02/29/2020 10:30:00 AM EDT [facility] Name Value Range Interpretation Description Data Sup porting Code Source(s) Document(s ) SARS [facility] coronavirus 2 RNA This lab was ordered by MINO mchugh [facility] and reported by [facility]. ID Date Data Source [id number] 02/25/2020 11:14:00 AM EDT [facility] Name Value Range Interpretation Description Data Sup porting Code Source(s) Document(s ) SARS [facility] coronavirus 2 RNA This lab was ordered by [facility] mchugh [facility] and reported by [facility]. ID Date Data Source [id number] 02/22/2020 11:39:00 AM EDT [facility] Name Value Range Interpretation Description Data Sup porting Code Source(s) Document(s ) SARS [facility] coronavirus 2 RNA [facility] and reported by [facility]. ID Date Data Source [id number] 02/18/2020 09:43:00 AM EDT [facility] Name Value Range Interpretation Description Data Sup porting Code Source(s) Document(s ) SARS [facility] coronavirus 2 RNA This lab was [facility] and reported by [facility]. ID Date Data Source [id number] 12/25/2019 12:47:00 PM EDT [facility] Name Value Range Interpretation Code Description Data Petra rce(s) Supporting Document(s ) COV2 [facility] This lab was ordered by [employer] and reported by [facility] [employer]. ID Date Data Source [id number] 11/16/2019 10:40:00 AM EDT [facility] Name Value Range Interpretation Code Description Data Petra rce(s) Supporting Document(s ) COV2 [facility] This lab was ordered by [employer] [facility] and reported by [facility] [employer]. Procedure Social History Code Duration Value Status Description Data Source(s ) Caffeine Use 04/12/2020 completed tea, 1 cup NEXTGEN (Sixto nt Details 12:00:00 AM EDT [facility]) Smoking 04/12/2020 Unknown if completed Unknown if ever NEXTGEN ( [facility] 12:00:00 AM EDT ever smoked smoked [facility]) Alcohol Use 03/22/2020 completed vodka 1 pint NEXTGEN (Sa int Details 12:00:00 AM EDT daily [facility]) Caffeine Use 06/18/2019 completed coffee, > 6 cups NEXTGE N (Saint Details 12:00:00 AM EST [facility]) Vital Signs ID Date Data Source UNK Name Value Range Interpretation Code Description Data Source(s) Oxygen 98 % 98 % NEXTGEN saturation in ([facility] Arterial [facility] by [facility]xim[facility] [place]) Body mass index 21.47 kg/m2 21.47 kg/m2 NEXTGEN (BMI) [Ratio] ([facility]) Body temperature 36.67 Sugar 36.67 Sugar [facility] ([facility]) Heart rate 102 /min 102 /min [facility] ([facility]) Diastolic blood 78 mm[Hg] 78 mm[Hg] NEXTGEN pressure ([facility]) Systolic blood 121 mm[Hg] 121 mm[Hg] NEXTGEN pressure ([facility]) Body weight 60.328 kg 60.328 kg REPLACED BY [facility] ([facility]) Body height 167.64 cm 167.64 cm REPLACED BY [facility] ([facility]) Oxygen 98 % 98 % NEXTGEN saturation in ([facility] by [facility] oxim[facility] [place]) Body mass index 21.63 kg/m2 21.63 kg/m2 NEXTGEN (BMI) [Ratio] ([facility]) Body temperature 36.78 Sugar 36.78 Sugar [facility] ([facility]) Heart rate 90 /min 90 /min [facility] ([facility]) Diastolic blood 76 mm[Hg] 76 mm[Hg] [facility] pressure ([facility]) Systolic blood 125 mm[Hg] 125 mm[Hg] [facility] pressure ([facility]) Body weight 60.781 kg 60.781 kg REPLACED BY [facility] ([facility]) Body height 167.64 cm 167.64 cm REPLACED BY [facility] ([facility]) Diastolic blood 72 mmHg 72 mmHg [facility] Systolic blood 113 mmHg 113 mmHg [facility] Heart rate 87 bpm 87 bpm [facility] Diastolic blood 78 mmHg 78 mmHg [facility] Systolic blood 115 mmHg 115 mmHg [facility] Respiratory rate 18 bpm 18 bpm [facility] Heart rate 81 bpm 81 bpm [facility] Body temperature 97.8 [facility]heit 97.8 [facility] Body temperature 97.4 Fahrenheit 97.4 [facility] Diastolic blood 76 mmHg 76 mmHg [facility] Systolic blood 111 mmHg 111 mmHg [facility] Respiratory rate 16 bpm 16 bpm [facility] Heart rate 84 bpm 84 bpm [facility] Diastolic blood 68 mmHg 68 mmHg [facility] Systolic blood 110 mmHg 110 mmHg [facility] Respiratory rate 22 bpm 22 bpm [facility] Heart rate 73 bpm 73 bpm [facility] Body temperature 96.4 Fahrenheit 96.4 [facility] t [facility] Diastolic blood 68 mmHg 68 mmHg [facility] Systolic blood 110 mmHg 110 mmHg [facility] Heart rate 73 bpm 73 bpm [facility] Diastolic blood 73 mmHg 73 mmHg [facility] Systolic blood 105 mmHg 105 mmHg [facility] Heart rate 79 bpm 79 bpm [facility] Diastolic blood 80 mmHg 80 mmHg [facility] Systolic blood 113 mmHg 113 mmHg [facility] Deprecated 98 % 98 % [facility] saturation in Hospital Capillary blood by Oximetry Respiratory rate 16 bpm 16 bpm [facility] Heart rate 77 bpm 77 bpm [facility] Body temperature 98.6 Fahrenheit 98.6 [facility]hei t [facility] Diastolic blood 66 mmHg 66 mmHg [facility] Systolic blood 103 mmHg 103 mmHg [facility] Heart rate 87 bpm 87 bpm [facility] Body weight 135 lbs 135 lbs [facility] Diastolic blood 73 mmHg 73 mmHg [facility] Systolic blood 109 mmHg 109 mmHg [facility] Deprecated 99 % 99 % [facility] saturation in Hospital Capillary blood by Oximetry Respiratory rate 18 bpm 18 bpm [facility] Heart rate 79 bpm 79 bpm [facility] Body temperature 97.8 Fahrenheit 97.8 [facility] t [facility] Diastolic blood 76 mmHg 76 mmHg [facility] Systolic blood 122 mmHg 122 mmHg [facility] Respiratory rate 18 bpm 18 bpm [facility] Heart rate 89 bpm 89 bpm [facility] Body temperature 97.9 Fahrenheit 97.9 Fahrenh t [facility] Diastolic blood 78 mmHg 78 mmHg [facility] Systolic blood 126 mmHg 126 mmHg [facility] Respiratory rate 18 bpm 18 bpm [facility] Heart rate 86 bpm 86 bpm [facility] Body temperature 97.9 Fahrenheit 97.9 Fahrenhei t [facility] Respiratory rate 18 bpm 18 bpm [facility] Body temperature 97.8 Fahrenheit 97.8 [facility]hei t [facility] Diastolic blood 84 mmHg 84 mmHg [facility] Systolic blood 118 mmHg 118 mmHg [facility] Heart rate 79 bpm 79 bpm [facility] Body temperature 97.4 Fahrenheit 97.4 [facility]ahrenhei t [facility] Diastolic blood 74 mmHg 74 mmHg [facility] Systolic blood 110 mmHg 110 mmHg [facility] Respiratory rate 18 bpm 18 bpm [facility] Heart rate 76 bpm 76 bpm [facility] Respiratory rate 18 bpm 18 bpm [facility] Body temperature 97.3 Fahrenheit 97.3 Fahrenhei t [facility] Diastolic blood 74 mmHg 74 mmHg [facility] Systolic blood 104 mmHg 104 mmHg [facility] Heart rate 81 bpm 81 bpm [facility] Diastolic blood 72 mmHg 72 mmHg [facility] Systolic blood 109 mmHg 109 mmHg [facility] Respiratory rate 18 bpm 18 bpm [facility] Heart rate 78 bpm 78 bpm [facility] Body temperature 98.0 Fahrenheit 98.0 Fahrenhei t [facility] Diastolic blood 71 mmHg 71 mmHg [facility] Systolic blood 98 mmHg 98 mmHg [facility] Heart rate 90 bpm 90 bpm [facility] Body weight 134 lbs 134 lbs [facility] Diastolic blood 72 mmHg 72 mmHg [facility] Systolic blood 102 mmHg 102 mmHg [facility] Deprecated 96 % 96 % [facility] saturation in Hospital Capillary blood by Oximetry Respiratory rate 16 bpm 16 bpm [facility] Heart rate 85 bpm 85 bpm [facility] Body temperature 97.5 Fahrenheit 97.5 Fahrenhei t [facility] Diastolic blood 77 mmHg 77 mmHg [facility] Systolic blood 99 mmHg 99 mmHg [facility] Respiratory rate 18 bpm 18 bpm [facility] Heart rate 81 bpm 81 bpm [facility] Body temperature 96.3 Fahrenheit 96.3 Fahrenhei t [facility] Diastolic blood 67 mmHg 67 mmHg [facility] Systolic blood 101 mmHg 101 mmHg [facility] Respiratory rate 18 bpm 18 bpm [facility] Heart rate 76 bpm 76 bpm [facility] Diastolic blood 67 mmHg 67 mmHg [facility] Systolic blood 110 mmHg 110 mmHg [facility] Respiratory rate 18 bpm 18 bpm [facility] Heart rate 72 bpm 72 bpm [facility] Body temperature 96.5 Fahrenheit 96.5 Fahrenhei t [facility] Diastolic blood 74 mmHg 74 mmHg [facility] Systolic blood 101 mmHg 101 mmHg [facility] Heart rate 82 bpm 82 bpm [facility] Diastolic blood 73 mmHg 73 mmHg [facility] Systolic blood 108 mmHg 108 mmHg [facility] Respiratory rate 18 bpm 18 bpm [facility] Heart rate 75 bpm 75 bpm [facility] Body temperature 98.0 Fahrenheit 98.0 Fahrenhei t [facility] Diastolic blood 67 mmHg 67 mmHg [facility] Systolic blood 107 mmHg 107 mmHg [facility] Heart rate 81 bpm 81 bpm [facility] Diastolic blood 67 mmHg 67 mmHg [facility] Systolic blood 104 mmHg 104 mmHg [facility] Respiratory rate 18 bpm 18 bpm [facility] Heart rate 76 bpm 76 bpm [facility] Body temperature 96.3 Fahrenheit 96.3 Fahrenhei t [facility] Diastolic blood 70 mmHg 70 mmHg [facility] Systolic blood 111 mmHg 111 mmHg [facility] Heart rate 88 bpm 88 bpm [facility] Diastolic blood 72 mmHg 72 mmHg [facility] Systolic blood 106 mmHg 106 mmHg [facility] Respiratory rate 18 bpm 18 bpm [facility] Heart rate 83 bpm 83 bpm [facility] Body temperature 97.7 Fahrenheit 97.7 Fahrenhei t [facility] Diastolic blood 76 mmHg 76 mmHg [facility] Systolic blood 114 mmHg 114 mmHg [facility] Heart rate 78 bpm 78 bpm [facility] Diastolic blood 71 mmHg 71 mmHg [facility] Systolic blood 111 mmHg 111 mmHg [facility] Respiratory rate 22 bpm 22 bpm [facility] Heart rate 74 bpm 74 bpm [facility] Body temperature 98.1 Fahrenheit 98.1 Fahrenhei t [facility] Diastolic blood 65 mmHg 65 mmHg [facility] Systolic blood 90 mmHg 90 mmHg [facility] Heart rate 87 bpm 87 bpm [facility] Diastolic blood 64 mmHg 64 mmHg [facility] Systolic blood 97 mmHg 97 mmHg [facility] Respiratory rate 18 bpm 18 bpm [facility] Heart rate 83 bpm 83 bpm [facility] Body temperature 96.8 Fahrenheit 96.8 Fahrenhei t [facility] Diastolic blood 72 mmHg 72 mmHg [facility] Systolic blood 103 mmHg 103 mmHg [facility] Heart rate 75 bpm 75 bpm [facility] Diastolic blood 71 mmHg 71 mmHg [facility] Systolic blood 103 mmHg 103 mmHg [facility] Respiratory rate 18 bpm 18 bpm [facility] Heart rate 75 bpm 75 bpm [facility] Body temperature 97.6 Fahrenheit 97.6 Fahrenhei t [facility] Diastolic blood 67 mmHg 67 mmHg [facility] Systolic blood 97 mmHg 97 mmHg [facility] Respiratory rate 18 bpm 18 bpm [facility] Heart rate 83 bpm 83 bpm [facility] Diastolic blood 65 mmHg 65 mmHg [facility] Systolic blood 100 mmHg 100 mmHg [facility] Respiratory rate 18 bpm 18 bpm [facility] Heart rate 78 bpm 78 bpm [facility] Body temperature 96.8 Fahrenheit 96.8 Fahrenhei t [facility] Diastolic blood 62 mmHg 62 mmHg [facility] Systolic blood 88 mmHg 88 mmHg [facility] Heart rate 88 bpm 88 bpm [facility] Diastolic blood 58 mmHg 58 mmHg [facility] Systolic blood 94 mmHg 94 mmHg [facility] Deprecated 97 % 97 % [facility] saturation in Hospital Capillary blood by Oximetry Respiratory rate 18 bpm 18 bpm [facility] Heart rate 81 bpm 81 bpm [facility] Body temperature 97.1 Fahrenheit 97.1 Fahrenhei t [facility] Diastolic blood 67 mmHg 67 mmHg [facility] Systolic blood 102 mmHg 102 mmHg [facility] Respiratory rate 20 bpm 20 bpm [facility] Heart rate 74 bpm 74 bpm [facility] Body temperature 98.0 Fahrenheit 98.0 Fahrenhei t [facility] Diastolic blood 67 mmHg 67 mmHg [facility] Systolic blood 102 mmHg 102 mmHg [facility] Respiratory rate 20 bpm 20 bpm [facility] Heart rate 79 bpm 79 bpm [facility] Body temperature 98.0 Fahrenheit 98.0 Fahrenhei t [facility] Body temperature 98.8 Fahrenheit 98.8 Fahrenhei t [facility] Diastolic blood 59 mmHg 59 mmHg [facility] Systolic blood 94 mmHg 94 mmHg [facility] Respiratory rate 18 bpm 18 bpm [facility] Heart rate 84 bpm 84 bpm [facility] Diastolic blood 70 mmHg 70 mmHg [facility] Systolic blood 106 mmHg 106 mmHg [facility] Heart rate 75 bpm 75 bpm [facility] Diastolic blood 68 mmHg 68 mmHg [facility] Systolic blood 107 mmHg 107 mmHg [facility] Respiratory rate 18 bpm 18 bpm [facility] Heart rate 73 bpm 73 bpm [facility] Body temperature 98.0 Fahrenheit 98.0 Fahrenhei t [facility] Systolic blood 117 mmHg 117 mmHg [facility] Heart rate 82 bpm 82 bpm [facility] Diastolic blood 73 mmHg 73 mmHg [facility] Diastolic blood 67 mmHg 67 mmHg [facility] Systolic blood 109 mmHg 109 mmHg [facility] Respiratory rate 18 bpm 18 bpm [facility] Heart rate 76 bpm 76 bpm [facility] Body temperature 98.4 Fahrenheit 98.4 Fahrenhei t [facility] Respiratory rate 18 bpm 18 bpm [facility] Body temperature 98.0 Fahrenheit 98.0 Fahrenhei t [facility] Diastolic blood 73 mmHg 73 mmHg [facility] Systolic blood 108 mmHg 108 mmHg [facility] Heart rate 74 bpm 74 bpm [facility] Diastolic blood 72 mmHg 72 mmHg [facility] Systolic blood 109 mmHg 109 mmHg [facility] Respiratory rate 18 bpm 18 bpm [facility] Heart rate 76 bpm 76 bpm [facility] Body temperature 98.0 Fahrenheit 98.0 Fahrenhei t [facility] Diastolic blood 75 mmHg 75 mmHg [facility] Systolic blood 108 mmHg 108 mmHg [facility] Heart rate 82 bpm 82 bpm [facility] Diastolic blood 72 mmHg 72 mmHg [facility] Systolic blood 109 mmHg 109 mmHg [facility] Respiratory rate 18 bpm 18 bpm [facility] Heart rate 79 bpm 79 bpm [facility] Body temperature 98.3 Fahrenheit 98.3 Fahrenhei t [facility] Diastolic blood 69 mmHg 69 mmHg [facility] Systolic blood 101 mmHg 101 mmHg [facility] Heart rate 72 bpm 72 bpm [facility] Diastolic blood 71 mmHg 71 mmHg [facility] Systolic blood 108 mmHg 108 mmHg [facility] Respiratory rate 18 bpm 18 bpm [facility] Heart rate 70 bpm 70 bpm [facility] Body temperature 97.7 Fahrenheit 97.7 Fahrenhei t [facility] Diastolic blood 70 mmHg 70 mmHg [facility] Systolic blood 107 mmHg 107 mmHg [facility] Heart rate 82 bpm 82 bpm [facility] Diastolic blood 79 mmHg 79 mmHg [facility] Systolic blood 102 mmHg 102 mmHg [facility] Respiratory rate 18 bpm 18 bpm [facility] Heart rate 79 bpm 79 bpm [facility] Body temperature 97.5 Fahrenheit 97.5 Fahrenhei t [facility] Diastolic blood 71 mmHg 71 mmHg [facility] Systolic blood 116 mmHg 116 mmHg [facility] Respiratory rate 18 bpm 18 bpm [facility] Heart rate 79 bpm 79 bpm [facility] Diastolic blood 75 mmHg 75 mmHg [facility] Systolic blood 115 mmHg 115 mmHg [facility] Respiratory rate 18 bpm 18 bpm [facility] Heart rate 76 bpm 76 bpm [facility] Body temperature 98.2 Fahrenheit 98.2 Fahrenhei t [facility] Diastolic blood 88 mmHg 88 mmHg [facility] Systolic blood 146 mmHg 146 mmHg [facility] Respiratory rate 18 bpm 18 bpm [facility] Heart rate 67 bpm 67 bpm [facility] Body temperature 97.5 Fahrenheit 97.5 Fahrenhei t [facility] Diastolic blood 69 mmHg 69 mmHg [facility] Systolic blood 107 mmHg 107 mmHg [facility] Respiratory rate 18 bpm 18 bpm [facility] Heart rate 81 bpm 81 bpm [facility] Body weight 124 lbs 124 lbs [facility] Diastolic blood 71 mmHg 71 mmHg [facility] Systolic blood 105 mmHg 105 mmHg [facility] Respiratory rate 18 bpm 18 bpm [facility] Heart rate 78 bpm 78 bpm [facility] Body temperature 99.1 Fahrenheit 99.1 Fahrenhei t [facility] Diastolic blood 71 mmHg 71 mmHg [facility] Systolic blood 126 mmHg 126 mmHg [facility] Heart rate 71 bpm 71 bpm [facility] Diastolic blood 76 mmHg 76 mmHg [facility] Systolic blood 108 mmHg 108 mmHg [facility] Deprecated 97 % 97 % [facility] saturation in Hospital Capillary blood by Oximetry Respiratory rate 18 bpm 18 bpm [facility] Heart rate 72 bpm 72 bpm [facility] Body temperature 97.8 Fahrenheit 97.8 Fahrenhei t [facility] Diastolic blood 67 mmHg 67 mmHg [facility] Systolic blood 103 mmHg 103 mmHg [facility] Heart rate 77 bpm 77 bpm [facility] Diastolic blood 76 mmHg 76 mmHg [facility] Systolic blood 109 mmHg 109 mmHg [facility] Respiratory rate 18 bpm 18 bpm [facility] Heart rate 78 bpm 78 bpm [facility] Body temperature 98.2 Fahrenheit 98.2 Fahrenhei t [facility] Respiratory rate 18 bpm 18 bpm [facility] Body temperature 98.5 Fahrenheit 98.5 [facility]hei t [facility] Diastolic blood 69 mmHg 69 mmHg [facility] Systolic blood 97 mmHg 97 mmHg [facility] Heart rate 75 bpm 75 bpm [facility] Diastolic blood 70 mmHg 70 mmHg [facility] Systolic blood 102 mmHg 102 mmHg [facility] Respiratory rate 18 bpm 18 bpm [facility] Heart rate 79 bpm 79 bpm [facility] Diastolic blood 76 mmHg 76 mmHg [facility] Systolic blood 112 mmHg 112 mmHg [facility] Respiratory rate 18 bpm 18 bpm [facility] Heart rate 71 bpm 71 bpm [facility] Body temperature 98.2 Fahrenheit 98.2 [facility]hei t [facility] Diastolic blood 71 mmHg 71 mmHg [facility] Systolic blood 109 mmHg 109 mmHg [facility] Respiratory rate 18 bpm 18 bpm [facility] Heart rate 81 bpm 81 bpm [facility] Diastolic blood 77 mmHg 77 mmHg [facility] Systolic blood 114 mmHg 114 mmHg [facility] Respiratory rate 18 bpm 18 bpm [facility] Heart rate 81 bpm 81 bpm [facility] Body temperature 97.9 Fahrenheit 97.9 [facility]hei t [facility] Diastolic blood 76 mmHg 76 mmHg [facility] Systolic blood 115 mmHg 115 mmHg [facility] Respiratory rate 18 bpm 18 bpm [facility] Heart rate 73 bpm 73 bpm [facility] Body temperature 96.4 Fahrenheit 96.4 Fahrenhei t [facility] Diastolic blood 88 mmHg 88 mmHg [facility] Systolic blood 129 mmHg 129 mmHg [facility] Respiratory rate 18 bpm 18 bpm [facility] Heart rate 73 bpm 73 bpm [facility] Body temperature 96.4 Fahrenheit 96.4 Fahrenhei t [facility] Diastolic blood 76 mmHg 76 mmHg [facility] Systolic blood 114 mmHg 114 mmHg [facility] Heart rate 77 bpm 77 bpm [facility] Diastolic blood 71 mmHg 71 mmHg [facility] Systolic blood 108 mmHg 108 mmHg [facility] Respiratory rate 18 bpm 18 bpm [facility] Heart rate 77 bpm 77 bpm [facility] Body temperature 97.1 Fahrenheit 97.1 Fahrenhei t [facility] Diastolic blood 68 mmHg 68 mmHg [facility] Systolic blood 105 mmHg 105 mmHg [facility] Deprecated 99 % 99 % [facility] Oxygen [facility] saturation in Hospital Capillary blood by Oximetry Respiratory rate 18 bpm 18 bpm [facility] Heart rate 80 bpm 80 bpm [facility] Diastolic blood 71 mmHg 71 mmHg [facility] Systolic blood 99 mmHg 99 mmHg [facility] Deprecated 99 % 99 % [facility] saturation in Hospital Capillary blood by Oximetry Respiratory rate 18 bpm 18 bpm [facility] Heart rate 78 bpm 78 bpm [facility] Systolic blood 107 mmHg 107 mmHg [facility] Respiratory rate 18 bpm 18 bpm [facility] Heart rate 75 bpm 75 bpm [facility] Body temperature 97.9 Fahrenheit 97.9 Fahrenhei t [facility] Diastolic blood 75 mmHg 75 mmHg [facility] Diastolic blood 60 mmHg 60 mmHg [facility] Systolic blood 95 mmHg 95 mmHg [facility] Heart rate 80 bpm 80 bpm [facility] Diastolic blood 65 mmHg 65 mmHg [facility] Systolic blood 99 mmHg 99 mmHg [facility] Respiratory rate 16 bpm 16 bpm [facility] Heart rate 76 bpm 76 bpm [facility] Body temperature 97.4 Fahrenheit 97.4 Fahrenhei t [facility] Diastolic blood 68 mmHg 68 mmHg [facility] Systolic blood 103 mmHg 103 mmHg [facility] Heart rate 86 bpm 86 bpm [facility] Diastolic blood 54 mmHg 54 mmHg [facility] Systolic blood 99 mmHg 99 mmHg [facility] Respiratory rate 18 bpm 18 bpm [facility] Heart rate 87 bpm 87 bpm [facility] Body temperature 98.9 Fahrenheit 98.9 Fahrenhei t [facility] Body weight 129 lbs 129 lbs [facility] Diastolic blood 68 mmHg 68 mmHg [facility] Systolic blood 104 mmHg 104 mmHg [facility] Respiratory rate 18 bpm 18 bpm [facility] Heart rate 86 bpm 86 bpm [facility] Body temperature 95.8 Fahrenheit 95.8 Fahrenhei t [facility] Diastolic blood 68 mmHg 68 mmHg [facility] Systolic blood 103 mmHg 103 mmHg [facility] Respiratory rate 18 bpm 18 bpm [facility] Heart rate 74 bpm 74 bpm [facility] Body temperature 97.5 Fahrenheit 97.5 Fahrenhei t [facility] Diastolic blood 59 mmHg 59 mmHg [facility] Systolic blood 87 mmHg 87 mmHg [facility] Heart rate 80 bpm 80 bpm [facility] Diastolic blood 65 mmHg 65 mmHg [facility] Systolic blood 98 mmHg 98 mmHg [facility] Respiratory rate 17 bpm 17 bpm [facility] Heart rate 75 bpm 75 bpm [facility] Body temperature 96.9 Fahrenheit 96.9 Fahrenhei t [facility] Diastolic blood 57 mmHg 57 mmHg [facility] Systolic blood 96 mmHg 96 mmHg [facility] Heart rate 78 bpm 78 bpm [facility] Diastolic blood 60 mmHg 60 mmHg [facility] Systolic blood 85 mmHg 85 mmHg [facility] Respiratory rate 18 bpm 18 bpm [facility] Heart rate 76 bpm 76 bpm [facility] Body temperature 99.0 Fahrenheit 99.0 Fahrenhei t [facility] Body weight 128 lbs 128 lbs [facility] Diastolic blood 68 mmHg 68 mmHg [facility] Systolic blood 108 mmHg 108 mmHg [facility] Respiratory rate 18 bpm 18 bpm [facility] Heart rate 73 bpm 73 bpm [facility] Body temperature 96.2 Fahrenheit 96.2 Fahrenhei t [facility] Diastolic blood 64 mmHg 64 mmHg [facility] Systolic blood 96 mmHg 96 mmHg [facility] Respiratory rate 18 bpm 18 bpm [facility] Heart rate 80 bpm 80 bpm [facility] Diastolic blood 59 mmHg 59 mmHg [facility] Systolic blood 92 mmHg 92 mmHg [facility] Respiratory rate 18 bpm 18 bpm [facility] Heart rate 72 bpm 72 bpm [facility] Body temperature 97.5 Fahrenheit 97.5 Fahrenhei t [facility] Diastolic blood 61 mmHg 61 mmHg [facility] Systolic blood 95 mmHg 95 mmHg [facility] Heart rate 83 bpm 83 bpm [facility] Body weight 125 lbs 125 lbs [facility] Diastolic blood 67 mmHg 67 mmHg [facility] Systolic blood 100 mmHg 100 mmHg [facility] Deprecated 98 % 98 % [facility] saturation in Hospital Capillary blood by Oximetry Respiratory rate 16 bpm 16 bpm [facility] Heart rate 77 bpm 77 bpm [facility] Body temperature 98.2 Fahrenheit 98.2 Fahrenhei t [facility] Diastolic blood 69 mmHg 69 mmHg [facility] Systolic blood 105 mmHg 105 mmHg [facility] Respiratory rate 18 bpm 18 bpm [facility] Heart rate 74 bpm 74 bpm [facility] Body weight 128 lbs 128 lbs [facility] Diastolic blood 58 mmHg 58 mmHg [facility] Systolic blood 94 mmHg 94 mmHg [facility] Deprecated 97 % 97 % [facility] saturation in Hospital Capillary blood by Oximetry Respiratory rate 18 bpm 18 bpm [facility] Heart rate 81 bpm 81 bpm [facility] Body temperature 99.2 Fahrenheit 99.2 Fahrenhei t [facility] Diastolic blood 66 mmHg 66 mmHg [facility] Systolic blood 106 mmHg 106 mmHg [facility] Respiratory rate 18 bpm 18 bpm [facility] Heart rate 78 bpm 78 bpm [facility] Diastolic blood 61 mmHg 61 mmHg [facility] Systolic blood 99 mmHg 99 mmHg [facility] Respiratory rate 18 bpm 18 bpm [facility] Heart rate 73 bpm 73 bpm [facility] Body temperature 95.5 Fahrenheit 95.5 Fahrenhei t [facility] Diastolic blood 66 mmHg 66 mmHg [facility] Systolic blood 97 mmHg 97 mmHg [facility] Respiratory rate 18 bpm 18 bpm [facility] Heart rate 78 bpm 78 bpm [facility] Diastolic blood 68 mmHg 68 mmHg [facility] Systolic blood 100 mmHg 100 mmHg [facility] Respiratory rate 18 bpm 18 bpm [facility] Heart rate 70 bpm 70 bpm [facility] Body temperature 96.1 Fahrenheit 96.1 Fahrenhei t [facility] Diastolic blood 64 mmHg 64 mmHg [facility] Systolic blood 94 mmHg 94 mmHg [facility] Respiratory rate 18 bpm 18 bpm [facility] Heart rate 92 bpm 92 bpm [facility] Diastolic blood 57 mmHg 57 mmHg [facility] Systolic blood 92 mmHg 92 mmHg [facility] Respiratory rate 18 bpm 18 bpm [facility] Heart rate 89 bpm 89 bpm [facility] Body temperature 97.4 Fahrenheit 97.4 Fahrenhei t [facility] Diastolic blood 68 mmHg 68 mmHg [facility] Systolic blood 96 mmHg 96 mmHg [facility] Heart rate 88 bpm 88 bpm [facility] Diastolic blood 61 mmHg 61 mmHg [facility] Systolic blood 92 mmHg 92 mmHg [facility] Deprecated 97 % 97 % [facility] saturation in Hospital Capillary blood by Oximetry Respiratory rate 18 bpm 18 bpm [facility] Heart rate 78 bpm 78 bpm [facility] Body temperature 97.8 Fahrenheit 97.8 Fahrenhei t [facility] Body weight 124 lbs 124 lbs [facility] Diastolic blood 62 mmHg 62 mmHg [facility] Systolic blood 106 mmHg 106 mmHg [facility] Respiratory rate 18 bpm 18 bpm [facility] Heart rate 87 bpm 87 bpm [facility] Diastolic blood 68 mmHg 68 mmHg [facility] Systolic blood 108 mmHg 108 mmHg [facility] Respiratory rate 18 bpm 18 bpm [facility] Heart rate 83 bpm 83 bpm [facility] Body temperature 94.4 Fahrenheit 94.4 Fahrenhei t [facility] Diastolic blood 66 mmHg 66 mmHg [facility] Systolic blood 100 mmHg 100 mmHg [facility] Respiratory rate 18 bpm 18 bpm [facility] Heart rate 95 bpm 95 bpm [facility] Diastolic blood 74 mmHg 74 mmHg [facility] Systolic blood 108 mmHg 108 mmHg [facility] Respiratory rate 18 bpm 18 bpm [facility] Heart rate 93 bpm 93 bpm [facility] Body temperature 97.8 Fahrenheit 97.8 Fahrenhei t [facility] Diastolic blood 72 mmHg 72 mmHg [facility] Systolic blood 110 mmHg 110 mmHg [facility] Respiratory rate 18 bpm 18 bpm [facility] Heart rate 88 bpm 88 bpm [facility] Body temperature 97.5 Fahrenheit 97.5 Fahrenhei t [facility] Diastolic blood 65 mmHg 65 mmHg [facility] Systolic blood 95 mmHg 95 mmHg [facility] Heart rate 102 bpm 102 bpm [facility] Diastolic blood 77 mmHg 77 mmHg [facility] Systolic blood 111 mmHg 111 mmHg [facility] Respiratory rate 18 bpm 18 bpm [facility] Heart rate 100 bpm 100 bpm [facility] Body temperature 97.6 Fahrenheit 97.6 Fahrenhei t [facility] Body weight 116 lbs 116 lbs [facility] Diastolic blood 71 mmHg 71 mmHg [facility] Systolic blood 107 mmHg 107 mmHg [facility] Deprecated 106 % 106 % [facility] Oxygen [facility] saturation in Hospital Capillary blood by Oximetry Respiratory rate 18 bpm 18 bpm [facility] Heart rate 93 bpm 93 bpm [facility] Body temperature 96.9 Fahrenheit 96.9 Fahrenhei t [facility] Body weight 116 lbs 116 lbs [facility] Diastolic blood 92 mmHg 92 mmHg [facility] Systolic blood 132 mmHg 132 mmHg [facility] Deprecated 106 % 106 % [facility] saturation in Hospital Capillary blood by Oximetry Respiratory rate 18 bpm 18 bpm [facility] Heart rate 87 bpm 87 bpm [facility] Body temperature 96.9 Fahrenheit 96.9 Fahrenhei t [facility] Diastolic blood 62 mmHg 62 mmHg [facility] Systolic blood 87 mmHg 87 mmHg [facility] Respiratory rate 18 bpm 18 bpm [facility] Heart rate 101 bpm 101 bpm [facility] Systolic blood 105 mmHg 105 mmHg [facility] Respiratory rate 18 bpm 18 bpm [facility] Heart rate 100 bpm 100 bpm [facility] Body temperature 97.5 Fahrenheit 97.5 Fahrenhei t [facility] Body weight 115 lbs 115 lbs [facility] Diastolic blood 79 mmHg 79 mmHg [facility] Body weight 116 lbs 116 lbs [facility] Diastolic blood 63 mmHg 63 mmHg [facility] Systolic blood 92 mmHg 92 mmHg [facility] Respiratory rate 18 bpm 18 bpm [facility] Heart rate 102 bpm 102 bpm [facility] Diastolic blood 72 mmHg 72 mmHg [facility] Systolic blood 123 mmHg 123 mmHg [facility] Respiratory rate 18 bpm 18 bpm [facility] Heart rate 100 bpm 100 bpm [facility] Body temperature 98.8 Fahrenheit 98.8 Fahrenhei t [facility] Diastolic blood 64 mmHg 64 mmHg [facility] Systolic blood 103 mmHg 103 mmHg [facility] Heart rate 127 bpm 127 bpm [facility] Diastolic blood 82 mmHg 82 mmHg [facility] Systolic blood 124 mmHg 124 mmHg [facility] Respiratory rate 18 bpm 18 bpm [facility] Heart rate 112 bpm 112 bpm [facility] Body temperature 98.6 Fahrenheit 98.6 Fahrenhei t [facility] Diastolic blood 69 mmHg 69 mmHg [facility] Systolic blood 98 mmHg 98 mmHg [facility] Deprecated 99 % 99 % [facility] Oxygen [facility] saturation in Hospital Capillary blood by Oximetry Respiratory rate 18 bpm 18 bpm [facility] Heart rate 98 bpm 98 bpm [facility] Body temperature 97.8 Fahrenheit 97.8 Fahrenhei t [facility] Diastolic blood 82 mmHg 82 mmHg [facility] Systolic blood 114 mmHg 114 mmHg [facility] Deprecated 98 % 98 % [facility] Oxygen [facility] saturation in Hospital Capillary blood by Oximetry Respiratory rate 18 bpm 18 bpm [facility] Heart rate 107 bpm 107 bpm [facility] Body temperature 98.2 Fahrenheit 98.2 Fahrenhei t [facility] Diastolic blood 63 mmHg 63 mmHg [facility] Systolic blood 92 mmHg 92 mmHg [facility] Heart rate 113 bpm 113 bpm [facility] Diastolic blood 74 mmHg 74 mmHg [facility] Systolic blood 105 mmHg 105 mmHg [facility] Respiratory rate 19 bpm 19 bpm [facility] Heart rate 109 bpm 109 bpm [facility] Body temperature 98.3 Fahrenheit 98.3 Fahrenhei t [facility] Oxygen 98 % 98 % NEXTGEN saturation in ([facility]) Body mass index 20.18 kg/m2 20.18 kg/m2 NEXTGEN (BMI) [Ratio] ([facility]) Body temperature 36.67 Sugar 36.67 Sugar NEXTGEN ([facility]) Heart rate 110 /min 110 /min [facility] ([facility]) Diastolic blood 88 mm[Hg] 88 mm[Hg] NEXTGEN pressure ([facility]) Systolic blood 132 mm[Hg] 132 mm[Hg] NEXTGEN pressure ([facility]) Body weight 56.699 kg 56.699 kg [facility] ([facility]) Body height 167.64 cm 167.64 cm [facility] ([facility]) ID Date Data Source [id number] 03/02/2020 01:50:59 PM EDT [facility] Name Value Range Interpretation Code Description Data Source(s) Body weight Measured 135 lb 135 lb [facility] Body weight Measured 134 lb 134 lb [facility] Body weight Measured 124 lb 124 lb [facility] Body weight Measured 129 lb 129 lb [facility] Body weight Measured 128 lb 128 lb [facility] Body weight Measured 125 lb 125 lb [facility] Body weight Measured 128 lb 128 lb [facility] Body weight Measured 124 lb 124 lb [facility] Body weight Measured 116 lb 116 lb [facility] Body weight Measured 115 lb 115 lb [facility] Body weight Measured 116 lb 116 lb [facility] Patient Treatment Plan of Care Planned Activity Planned Date Details Description Data Source (s) 24 HR metoprolol 04/15/2020 12:00:00 NEXT GEN ([facility] succinate 25 MG Extended AM [facility] Tablet [facility]) [Toprol] 24 HR metoprolol 04/15/2020 12:00:00 NEXT GEN ([facility] succinate 25 MG Extended AM [facility]) [Toprol] 24 HR metoprolol 04/15/2020 12:00:00 NEXT GEN ([facility] succinate 50 MG Extended AM [facility] Oral Table[facility]) [Toprol] 24 HR metoprolol 04/15/2020 12:00:00 NEXT GEN ([facility] succinate 50 MG Extended AM [facility] Medical Release Oral Tablet [facility]) [Toprol] POLYETHYLENE GLYCOL 3350 04/15/2020 12:00:00 NEXTGEN (Saint 142 MG/ML Oral Solution AM [facility] [Miralax] Center) Omeprazole 40 MG Delayed 04/15/2020 12:00:00 NEXTGEN ([facility] Release Oral Capsule AM [facility]) Omeprazole 40 MG Delayed 03/15/2020 12:00:00 NEXTGEN (Saint Release Oral Capsule AM [facility]) 24 HR metoprolol 03/15/2020 12:00:00 NEXT GEN ([facility] succinate 50 MG Extended AM [facility]) [Toprol] Mirtazapine 30 MG Oral 03/15/2020 12:00:00 NEXTGEN ([facility] Tablet [facility]Remeron] [facility] Haldol Decanoate 100 03/15/2020 12:00:00 NEXTGEN (Saint mg/mL intramuscular [facility]) benztropine mesylate 1 MG 03/15/2020 12:00:00 NEXTGEN ([facility] Oral Tablet [facility]) Trazodone Hydrochloride 03/15/2020 12:00:00 NEXTGEN ([facility] 150 MG Oral Tablet [facility]) Clozaril 50 mg tablet 03/15/2020 12:00:00 NEXTGEN ([facility]) POLYETHYLENE GLYCOL 3350 11/13/2018 12:00:00 NEXTGEN (Saint 142 MG/ML Oral Solution [facility] [Miralax] [place]) Clotrimazole 10 MG/ML 11/13/2018 12:00:00 NEXTGEN ([facility] Topical Cream [Lotrimin] [facility]) Clozapine 100 MG Oral 11/13/2018 12:00:00 NEXTGEN ([facility] Tablet [facility]) benztropine mesylate 1 MG 08/14/2018 12:00:00 NEXTGEN (Saint Oral Tablet [facility]) 24 HR Bupropion 08/14/2018 12:00:00 NEXTG EN (Saint Hydrochloride 300 MG [facility] Extended Release Oral Center ) Tablet [Wellbutrin] Trazodone Hydrochloride 08/14/2018 12:00:00 NEXTGEN (Saint [address] [facility]) Metoprolol Tartrate 25 MG 08/14/2018 12:00:00 NEXTGEN (Saint Oral Tablet [facility]) Risperidone 2 MG Oral 11/13/2017 12:00:00 NEXTGEN (Saint Tablet [Risperdal] [facility])
--- OUTSIDE RECORDS SUMMARY | 2020-05-05 06:09 | XMS ---
:1980 Author Organization [facility] Care Team Providers Name Role Phone COON DASHAWN PERSAUD Unavailable Unavailable RAMONITA WYMAN MD Unavailable Unavailable MD BENTLEY Unavailable Unavailable JEWISH, HUMAYUN Unavailable Unavailable Coon Unavailable Unavailable Coon Unavailable Unavailable Coon Unavailable Unavailable Coon Unavailable Unavailable Coon Unavailable Unavailable Coon Unavailable Unavailable TRUDY VALENTE MD Unavailable Unavailable HHCCC Unavailable Unavailable MD LC Unavailable Unavailable KEILA REYNOSO Unavailable Unavailable LC Demarco Unavailable Unavailable GUPTA, FIELD TRAINING MANAGER Unavailable Unavailable ZUNASSIGNED Unavailable Unavailable ZUNASSIGNED@, Unavailable [...] is protected by Article 27-F of the [facility] Public Health law. If you continue you may haveaccess to information: Regarding HIV / AIDS; Provided by facilities licensed or operated by the [facility] Office of Mental Health; or Provided by the [facility] Office for People With Developmental Disabilities. If such information is present, then the following [facility] mandated warning applies: This information has [...] law may result in a fine or prison sentence or both. A general authorization for the release of medical or other information is NOT sufficient authorization for further disclosure. Family History Family Member Family Member Family Member Date of Description Data Source(s) Name Gender Status Status Unknown Male Problem 11/13/2017 [facility]) 12:00:00 AM [facility] EDT Center) Encounters Encounter Providers Location Date Indications Data Source(s ) Outpatient 07/12/2020 [facility] 12:04:00 PM Medical Reede r EST Outpatient Attender: 07/12/2020 [facility] ZUNASSIGNEDAdmitter: 12:00:00 AM [facility] ZUNASSIGNEDReferrer: EST [id number] ZUNASSIGNED@, Outpatient Attender: 05/10/2020 [facility] ZUNASSIGNEDAdmitter: 01:54:00 PM [facility] ZUNASSIGNEDReferrer: EDT [id number] ZUNASSIGNED@, Outpatient Admitter: [id number] 05/10/2020 [facility] Maritza miller ZUNASSIGNED@,Referre 12:00:00 AM Med ical Center r: [id number] EDT ZUNASSIGNED@, Outpatient Attender: PM9 [facility] 04/18/2020 [facility] ([facility] 05:49:36 PM Health Care EDT Collaborative) Patient [facility]. [facility]2020 [facility] 09:55:00 AM EDT ([facility] - 04/15/2020 [facility] 09:55:00 AM EDT Medical Center) Attender: Saint [place] 04/12/2020 [facility] 10:07:00 AM EDT ([facility] - 04/12/2020 [place] 10:07:00 AM EDT Medical Center) Attender: [place] 04/08/2020 [facility] 11:04:00 AM EDT (Oskar - 04/08/2020 [place] 11:04:00 AM EDT Medical Center) Attender: Whitwell 03/23/2020 [facility] 12:46:00 PM EDT ([facility] - 03/23/2020 [place] 12:46:00 PM EDT Medical Center) Outpatient 03/22/2020 [facility] 01:11:00 PM EDT Medical Center Outpatient Attender: DASHAWN Kaur 03/22/2020 [facility] 11:47[facility]00 AM EDT Medica l BAdmitter: AMMIR [place] ANNETTE WALLACE BReferrer: DASHAWN [place] OutpatientOFFICE/OUT Attender: [place] [facility] 11:47:00 AM EDT ([facility] 03/22/2020 [place] 11:47:00 AM EDT Medical Center) Outpatient 03/22/2020 [place] 12:00:00 AM EDT Medical Center Outpatient 03/15/2020 [place] 12:24:00 PM EDT Medical Center Outpatient Attender: DASHAWN Kaur 03/15/2020 [facility] 12[facility] PM EDT Medica l BAdmitter[facility] BReferrer: DASHAWN Matute OutpatientWell Attender: Whitwell 03/15/2020 [facility] 12:19:00 PM EDT (Oskar t Est,18-39years - 03/15/2020 [place] [facility] 12:19:00 PM EDT Medical Center) Attender: Whitwell 03/15/2020 [facility] 09:05:00 AM EDT (Oskar t - 03/15/2020 [place] 09:05:00 AM EDT Medical Center) Outpatient 03/15/2020 [facility] [place] 12:00:00 AM EDT Medical Center Attender: Whitwell 03/14/2020 [facility] 11:56:00 AM EDT (Oskar - 03/14/2020 [facility] 11:56:00 AM EDT Medical [place]) Outpatient Attender: 03/09/2020 [facility] 07:01:00 AM EDT [facility] GEORGE MAdmitter: GEORGE VAZQUEZ MReferrer: GEORGE Demarco Outpatient Attender: [facility] 02/13/2020 [facility] 12:57:38 PM EDT ([facility] ) Patient admitted. Inpatient Attender: RAMONITA [facility] 11/15/2019 03:16:00 S abdoulaye [facility] ALMAZ EDT - 02/16/2020 [facility] 10:48:00 PM EDT Patient discharged. Outpatient [facility] 11/15/2019 02:10:00 PM EDT - [address] [place] [address] 04:57:00 PM EDT Patient discharged. Outpatient Attender: [address] 10/13/2019 02:55:09 PM [facility] ([facility] EDT [facility]) Patient admitted. Outpatient Attender: [address] 10/02/2019 07:07:41 AM [facility] ([facility] EDT Collaborative) Patient admitted. Outpatient Attender: GEORGE Kaur 09/29/2019 01:06:00 [facility] VAZQUEZ EDT Center MAdmitter: GEORGE VAZQUEZ MReferrer: GEORGE Demarco Outpatient Attender: ALVARO 09/07/2019 01:27:00 R56.9 [facility]ULI[facility]NUNAdmitter: JEWISH, [facility] HospitalUNReferrer: Yvon VALENTE MD R56.9 Outpatient Attender: 09/03/2019 [facility] VAZQUEZ MAdmitter: GEORGE VAZQUEZ MReferrer: GEORGE Demarco Outpatient Attender: 08/05/2019 [facility] 11:[facility]00 [facility] LC VAZQUEZ MAdmitter: GEORGE VAZQUEZ MReferrer: GEORGE Demarco Outpatient Attender: 07/10/2019 [facility] GEORGE 07:01:00 AM [facility] Center LC VAZQUEZ MAdmitter: GEORGE VAZQUEZ MReferrer: GEORGE Demarco Attender: Whitwell 06/19/2019 [facility] ([facility] 01:26:00 PM EST Ronnie Medical - 06/19/2019 Center) 01:26:00 PM EST Outpatient 06/18/2019 [facility] 03:27:00 PM EST Medical C enter Outpatient Attender: ROVERTOGAJermaine 06/18/2019 [facility] 10:31:00 AM EST Medica l Center BAdmitter: [facility] BReferrer: DASHAWN [facility] Juju OutpatientOFFICE Attender: Whitwell 06/18/2019 [place] ([facility] 10:31:00 AM EST [facility] Medical VISIT, EST - 06/18/2019 Center) 10:31:00 AM EST Attender: Whitwell 06/18/2019 [facility] ([facility] 09:07:00 AM EST Ronnie hs Medical - 06/18/2019 Center) 09:07:00 AM EST Outpatient 06/18/2019 [facility] 12:00:00 AM EST Medical C enter Outpatient Attender: 06/15/2019 [facility] GEORGE 09:28:00 AM [facility] Medical Center LC VAZQUEZ MAdmitter: GEORGE VAZQUEZ MReferrer: GEORGE Demarco Outpatient 06/10/2019 [facility] 10:29:00 AM EST Medical C enter Outpatient 06/10/2019 [facility] 12:00:00 AM EST Medical C enter Outpatient Attender: 05/18/2019 [facility] GEORGE 12:30:00 PM [facility] Medical Center LC VAZQUEZ MAdmitter: GEORGE VAZQUEZ MReferrer: GEORGE Demarco Outpatient Attender: 04/30/2019 R13.1 [place] KEILA REYNOSO 08:46:00 AM EDT [address] [place] [address].Admitter: Care [employer] KEILA REYNOSOReferrer: KEILA REYNOSO R13.10 Outpatient Attender: EDGARDO 04/30/2019 06:00:00 R13.10 [facility] KEILA Demarco.Admitter: AM EDT Health C are KEILA REYNOSOReferrer: KEILA REYNOSO R13.10 Outpatient Attender: GEORGE Kaur 04/22/2019 07:01:[address] [facility] MAdmitter: GEORGE VAZQUEZ MReferrer: GEORGE Demarco Outpatient Attender: GEORGE Kaur 03/26/2019 07:01:[address] [facility] MAdmitter: GEORGE VAZQUEZ MReferrer: GEORGE Demarco Outpatient Attender: GEORGE ECHEVARRIA 04/20/2016 10:38:00 AM [facility] Immunizations Vaccine Date Status Description Data Source(s) New in 2011. IIV4 06/18/2019 completed Influenza, Injectable, NEXTGEN (Saint 12:00:00 AM EST Quadrivalent [facility]) Source: New Immunization Record As of March 1999, 06/18/2019 12:00:00 completed Hep B, adult , 3 NEXTGEN (Saint a 2-dose hepatitis B AM EST dose [facility] schedule for [place]) adolescents (11-15 year olds) was FDA approved for Merck's Recombivax HB adult formulation. Use code 43 for the 2-dose. This code should be used for any use of standard adult formulation of hepatitis B vaccine. Source: New Immunization Record Medications Medication Brand Start Product Dose Route Administrative Pharm[facility] Indications Reaction Description Data Name Date Form Instructions Instructions Source(s) POLYETHYLEN Mirala .00 ORAL active polyeth ylene NEXTGEN E GLYCOL x 17 2019 {pack glycol 3350 (Sa int 3350 142 gram 12:00: et} 79558 MG Ronnie hs MG/ML Oral oral 00 [...] Tablet 50 MG Medical [Toprol] Toprol Extended [place]) XL 50 mg Release tablet,extended Oral Tabl [...] 25 MG tablet,extended 12:00:00 AM . metoprolol (Saint Extended Release release EDT 0 succi aftab [place] Oral Tablet 0 25 MG Medical [Toprol] Toprol { Extended [place]) XL 25 mg t Release tablet,extended a Oral Tabl et release b [Toprol] l e t } Medication administered onsite 24 HR metoprolol Toprol XL 25 mg 04/15/2020 1.00 ORAL comple laureen 24 HR NEXTGEN succinate 25 MG tablet,extended 12:00:00 AM {tablet} metoprolol (Saint Extended Release release EDT succi aftab [place] Oral Tablet 25 MG Medical [Toprol] Toprol Extended [place]) XL 25 mg Release tablet,extended Oral Tabl et release [Toprol] Medication administered onsite Clozaril 50 Clozapine 50 03/15/2020 active clozapine 50 NEXTGEN mg tablet MG Oral Tablet 12:00:00 AM MG Oral Tablet (Saint EDT [Clozaril] [facility]) Mirtazapine Remeron 30 mg 03/15/2020 1.00 ORAL active mirtazapine 30 NEXTGEN 30 MG Oral tablet 12:00:00 AM {tabl MG O ral Tablet (Saint Tablet EDT et} [Remeron] [facility] [Remeron] Medical Remeron 30 mg [place] ) tablet Haldol 1 ML 03/15/2020 1.00 [...] 150 MG Oral EDT every day at [facility] Medical trazodone 150 [place] ) mg tablet 24 HR Toprol XL 50 03/15/2020 completed 24 HR NEXTGEN metoprolol mg 12:00:00 AM metopro lol (Saint succinate 50 tablet,extende EDT de dios ccinate 50 [place] MG Extended d release MG Exten ded Medical Release Oral Release Oral [place]) Tablet Tablet [Toprol] [Toprol] Toprol XL 50 mg tablet,extend ed release benztropine benztropine 1 03/15/2020 active take 1 tablet NEXTGEN mesylate 1 MG mg tablet 12:00:00 AM by oral route (Saint Oral Tablet EDT every hs prn [facility] benztropine 1 as needed M edical mg tablet [place]) Omeprazole 40 omeprazole 40 03/15/2020 1.00 ORAL completed take 1 capsule NEXTGEN MG Delayed mg 12:00:00 AM {caps by ora l route (Saint Release Oral capsule,delaye EDT ule} ev merle day [place] Capsule d release before a kalpana l Medical omeprazole 40 [place] ) mg capsule,delay ed release Haldol 03/10/2020 [...] [facility] 142 MG/ML Powder for EDT Powder r [facility] Oral Solution Solution Solutio n [Miralax] [...] XL 11/06/2019 3 ORAL completed Wellbutrin XL [facility] Bupropion [...] [facility] 142 MG/ML Powder for EDT [facility] Oral Solution Solution Solutio n [Miralax] benztropine [...] [facility] 142 MG/ML Powder for EST [facility] Oral Solution Solution Solutio n benztropine Benztropine 09/10/2019 1 ORAL completed Benztropine [facility] mesylate 1 MG Mesylate - 1 12:00:00 AM Table Mesylate - 1 [facility] Oral Tablet MG ORAL Tablet EST t MG ORAL Tablet Hospital Trazodone traZODone 09/10/2019 2 ORAL completed [...] [facility] 142 MG/ML Powder for EST [facility] Oral Solution Solution Solutio n [...] [facility] 142 MG/ML Powder for EDT [facility] Oral Solution Solution Solutio n [...] [facility] 142 MG/ML Powder for EDT [facility] Oral Solution Solution Solutio n [...] [facility] 142 MG/ML Powder for EDT [facility] Oral Solution Solution Solutio n [Miralax] [...] [facility] 142 MG/ML Powder for EDT [facility] Oral Solution Solution Solutio n [...] Topical Crea m [place] [Lotrimin] cream [Lotrimin] Vt dical Lotrimin AF [place]) (clotrimazole) 1 % topical cream POLYETHYLENE Miralax 17 gram 11/13/2018 1 ORAL completed polyethylene NEXTGEN GLYCOL 3350 142 oral powder 12:00:00 AM . glycol 3350 (Saint MG/ML Oral packet EDT 0 78569 MG Bryce ephs Solution 0 Powder for Medic al [Miralax] { Oral Solution C enter) Miralax 17 gram p [Miralax] oral powder a packet c k e t } Trazodone trazodone 150 08/14/2018 completed take 2 tablet NEXTGEN Hydrochloride mg tablet 12:00:00 AM by oral route (Saint 150 MG Oral EST every day at [facility] Medical trazodone 150 Center ) mg tablet 24 HR Bupropion Wellbutrin XL 08/14/2018 1 ORAL completed 24 HR NEXTGEN Hydrochloride 300 mg 24 hr 12:00:00 AM . bupropion (Saint 300 MG Extended tablet, EST 0 hydroc hloride [place] Release Oral extended 0 300 MG M edical Tablet release { Extended [place] ) [Wellbutrin] t Release Oral Wellbutrin XL a Tablet 300 mg 24 hr b [Wellbutrin] tablet, l extended e release t } benztropine benztropine 1 08/14/2018 1 ORAL completed take 1 tablet NEXTGEN mesylate 1 MG mg tablet 12:00:00 AM { by oral route (Saint Oral Tablet EST t 2 times every [place] benztropine 1 a day Medica l mg tablet b [place]) l e t } Metoprolol metoprolol 08/14/2018 completed take 1 tablet NEXTGEN Tartrate 25 MG tartrate 25 mg 12:00:00 AM by mouth once (Saint Oral Tablet tablet EST a day with [place] metoprolol food for Medic al tartrate 25 mg tachycardi a. [place]) tablet May cause drowsiness or dizziness. take at night Risperidone 2 Risperdal 2 mg 11/13/2017 1 ORAL completed risperidone 2 NEXTGEN MG Oral Tablet tablet 12:00:00 AM . M G Oral (Saint [Risperdal] EDT 0 Tablet [place] Risperdal 2 mg 0 [Risperdal ] Medical tablet { [place]) t a b l e t } Insurance Providers Payer name Policy type Policy ID Covered Covered libertarian's Policy P ned / Coverage libertarian ID relationship to [employer] Inf ormation type robledo [facility] MEDICAID [id number] SP [id number] [employer] MVP/HHP O [id number] 01 [id number] 000 [facility] MEDICAID [id number] SP [id number] [employer] MVP/HHP [id number] self [id number] [facility] MEDICAID [id number] SP [id number] [facility] [id number] SP [id number] CARE [facility] [id number] SP [id number] CARE [facility] MEDICAID [id number] SP [id number] [facility] [id number] SP [id number] Options MVP SELF PAY 00 Self 00 MEDICAID INP [id number] Self [id number] P PSYCH [facility] MVP [id number] Self [id number] [facility] [id number] SP [id number] HEALTH-MVP [facility] [id number] SP [id number] CARE [facility] [id number] Self [id number] 000 [facility] SELF PAY 0 Self 0 MEDICAID OP [id number] Self [id number] [facility] [id number] Self [id number] [facility] [id number] self [id number] MVP/HHP O [id number] 01 [id number] MVP/HHP O [id number] 01 [id number] Problems, Conditions, and Diagnoses Code Display Name Description Problem Type Effective Data Sour ce(s) Dates D64.9 Anemia, unspecified ANEMIA, UNSPECIFIED Diagnosis 020 [facility] 11:47:00 AM Medical Cente r EDT Z00.00 Encounter for ENCNTR FOR GENERAL Diagnosis 03/15/2020 [facility] [place] [facility] adult ADULT MEDICAL EXAM 12:19:00 PM [facility] medical examination W/O ABNORMAL EDT without abnormal FINDINGS findings 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, HALLUCINOGEN ABUSE, Diagnosis 020 [facility] uncomplicated UNCOMPLICATED 07:01:00 AM Medical Center EDT F10.20 Alcohol dependence, ALCOHOL DEPENDENCE, Diagnosis 020 [facility] uncomplicated UNCOMPLICATED 07:01:00 AM Medical Center EDT F33.3 Major depressive MAJOR DEPRESSV Diagnosis 03/09/2020 O[place]ar [place] disorder, DISORDER, 07:01:00 AM Medical Cente r recurrent, severe RECURRENT, SEVERE W EDT with psychotic PSYCH SYMPTOMS symptoms F25.1 Schizoaffective SCHIZOAFFECTIVE Diagnosis 03/09/2020 [place] disorder, DISORDER, 07:01:00 AM Medical Cente r depressive type DEPRESSIVE TYPE EDT R56.9 Unspecified UNSPECIFIED Diagnosis 09/07/2019 [place] convulsions CONVULSIONS 01:27:00 PM [facility] Tango Z23 Encounter for ENCOUNTER FOR Diagnosis 06/18/2019 [facility] immunization IMMUNIZATION 10:31:00 AM Medical C enter EST F20.9 Schizophrenia, SCHIZOPHRENIA, Diagnosis 04/30/2019 [place] unspecified UNSPECIFIED 08:46:00 [facility] F41.8 Other specified OTHER SPECIFIED Diagnosis 04/30/2019 [place] anxiety disorders ANXIETY DISORDERS 08:46:00 AM [facility] EDT [employer] K22.8 Other specified OTHER SPECIFIED Diagnosis 04/30/2019 [place] [facility] of DISEASES OF 08:46:00 AM [facility] esophagus ESOPHAGUS EDT [employer] K44.9 Diaphragmatic DIAPHRAGMATIC Diagnosis 04/30/2019 [facility] hernia without HERNIA WITHOUT 08:46:00 AM [facility] y Health obstruction or OBSTRUCTION OR EDT Care gangrene [employer] R13.10 Dysphagia, DYSPHAGIA, Diagnosis 04/30/2019 [place] unspecified UNSPECIFIED 08:46:00 AM [facility] EDT [employer] Surgeries/Procedures Procedure Description Date Indications Data Source(s) OFFICE/OUTPATIENT VISIT, 03/22/2020 NEX TGEN ([facility] EST 12:00:00 AM EDT [facility] 03/22/2020 [place]) 12:00:00 AM EDT Well Visit, Est,18-39years 03/15/2020 N EXTGEN ([facility] [place]) 12:00:00 AM EDT ELECTROCARDIOGRAM, 03/15/2020 NEXTGEN ( [facility] COMPLETE 12:00:00 AM EDT [facility] 03/15/2020 [place]) 12:00:00 AM EDT Vision Screening - 0 - 21 03/15/2020 NE XTGEN ([facility] y[facility]o [facility]:00[facility]2020 [place]) 12:00:00 AM EDT PURE TONE HEARING TEST, 03/15/2020 NEXT GEN ([facility] AIR [facility]00[facility]2020 [place]) 12:00:00 AM EDT ROUTINE VENIPUNCTURE 03/15/2020 NEXTGEN ([facility] 12:00:00 AM EDT [facility] 03/15/2020 [place]) 12:00:00 AM EDT OFFICE/OUTPATIENT VISIT, 06/18/2019 NEX TGEN ([facility] EST 12:00:00 AM EST [facility] 06/18/2019 [place]) 12:00:00 AM EST Influenza, Injectable, 3 06/18/2019 NEX TGEN ([facility] Yrs Or Older 12:00:00 AM EST [facility] - 06/18/2019 [place]) 12:00:00 AM EST Immunization 06/18/2019 NEXTGEN ([facility] Administration 12:00:00 AM EST [facility] dical - 06/18/2019 Center) 12:00:00 AM EST HEP B VACCINE, ADULT, IM 06/18/2019 NEX TGEN ([facility] 12:00:00 AM EST [facility] jimena - 06/18/2019 Center) 12:00:00 AM EST Immunization 06/18/2019 NEXTGEN ([facility] Administration 12:00:00 AM EST [place] Vt dical - 06/18/2019 [place]) 12:00:00 AM EST Results ID Date Data Source [id number] 04/25/2020 09:55:00 AM EDT [facility] Name Value Range Interpretation Description Data Sup porting Code Source(s) Document(s ) SARS [facility] coronavirus 2 RNA This lab was ordered by [facility] Melara iliana [facility] and reported by [facility]. ID Date Data Source [id number] 04/17/2020 10:35:00 AM EDT [facility] Name Value Range Interpretation Description Data Sup porting Code Source(s) Document(s ) SARS [facility] coronavirus 2 RNA This lab was [facility] and reported by [facility]. ID Date Data Source [id number] 04/11/2020 09:01:00 AM EDT [facility] Name Value Range Interpretation Description Data Sup porting Code Source(s) Document(s ) SARS [facility] coronavirus 2 RNA This lab was [facility] Melara iliana [facility] and reported by [facility]. ID Date Data Source [id number] 04/04/2020 09:28:00 AM EDT [facility] Name Value Range Interpretation Description Data Sup porting Code Source(s) Document(s ) SARS [facility] coronavirus 2 RNA This lab was [facility] and reported by [facility]. ID Date Data Source [id number] 03/28/2020 08:58:00 AM EDT [facility] Name Value Range Interpretation Description Data Sup porting Code Source(s) Document(s ) SARS [facility] coronavirus 2 RNA This lab was ordered by [facility] and reported by [facility]. ID Date Data Source [id number] 03/21/2020 09:08:00 AM EDT [facility] Name Value Range Interpretation Description Data Sup porting Code Source(s) Document(s ) SARS [facility] coronavirus 2 RNA This lab was ordered by MINO SILVEIRA and reported by [facility]. ID Date Data Source Urinalysis.[id number] 03/15/2020 01:12:00 PM EDT [facility] 0 Name Value Range Interpretation Description [...] by Test d">Urine Medical strip Specific Center Bazine </content>1.01 5 <content styleCode="Shana lics"> (1.015-1.025 )</content> UNK NEGATIVE <content Saint styleCode="Addis [place] d">Urine Medical Bilirubin Center </content>NEGA TIVE <content styleCode="Shana lics"> (NEGATIVE )</content> Urobilinogen 0.2-1.0 <content [facility] [Units/volume] styleCode="Addis Monroys [...] by 4.5-8.0 <content [facility] Test strip styleCode="Addis [place] d">Urine pH Medical </content>6.5 Center <content styleCode="Shana [...] Data Source Liver 03/15/2020 01:12:00 PM EDT [facility] Profile.[id number] Name Value Range Interpretation Description Data Sup [...] s"> (0.2-1.3 MG/DL)</content> ID Date Data Source LIPID.[id number] 03/15/2020 01:12:00 PM EDT [facility] Name Value Range Interpretation Description Data [...] 60 MG/DL)</conten t> ID Date Data Source Hormones.[id number] 03/15/2020 01:12:[address] [facility] Name Value Range Interpretation Description Data [...] (0.465-4.68 MIU/L)</conten t> ID Date Data Source HematologyRou.[id number] 03/15/2020 01:12:00 PM EDT [facility] 0400 Name Value Range Interpretation Description [...] (< 1 %)</content> ID Date Data Source GFR(Creatinine).[id number] 03/15/2020 01:12:00 PM [facility] Name Value Range Interpretation Code Description Data Petra rce(s) Supporting Document(s ) UNK > 60 <content [facility] styleCode="Bold"> Medical Cent er EGFR </content>100 GFR<content styleCode="Italic s"> (> 60 GFR)</content> ID Date Data Source ChemistrySpecia.[id number] 03/15/2020 01:12:00 PM EDT [facility] 0-0400 Name Value Range Interpretation Description Data Sup porting Code Source(s) Document(s ) Cobalamin [id number] Above high normal <content [facility] (Vitamin B12) styleCode="[facility] [Mass/volume] d">Vitamin B12 Medical in Serum or </content>> Center Plasma 1000 PG/ML H<content styleCode="Shana lics"> ([id number] PG/ML)</conten t> ID Date Data Source [id number] 03/15/2020 01:12:00 PM EDT [facility] -0400 Name Value Range Interpretation Description Data Sup porting Code Source(s) Document(s ) UNK >= 1.0 <content [facility] styleCode="[facility] ">AG Ratio Center </content>1.8 <content styleCode="Ital ics"> (>= 1.0 )</content> UNK 2.3-3.5 <content [facility] styleCode="[facility] ">Globulin Center </content>2.6 G/DL<content styleCode="Ital ics"> (2.3-3.5 G/DL)</content> Protein 6.3-8.2 <content [facility] [Mass/volum styleCode="[facility] e] in Serum ">Total Protein Center or Plasma </content>7.3 G/DL<content styleCode="Ital ics"> (6.3-8.2 G/DL)</content> ID Date Data Source [id number] 03/15/2020 01:12:00 PM EDT [facility] Name Value Range Interpretation Description [...] Carbon dioxide, 22-30 <content [facility] total styleCode="Bold"> Shilrey [Moles/volume] in Carbon Dioxide Medical Serum or [...] s"> (3.5-5.0 G/DL)</content> ID Date Data Source [id number] 03/14/2020 09:02:00 AM EDT [facility] Name Value Range Interpretation Description Data Sup porting Code Source(s) Document(s ) SARS [facility] coronavirus 2 RNA This lab was ordered by MINO mchugh [facility] and reported by [facility]. ID Date Data Source [id number] 03/08/2020 09:07:00 AM EDT [facility] Name Value Range Interpretation Description Data Sup porting Code Source(s) Document(s ) SARS [facility] coronavirus 2 RNA This lab was ordered by [facility] and reported by [facility]. ID Date Data Source [id number] 02/29/2020 10:30:00 AM EDT [facility] Name Value Range Interpretation Description Data Sup porting Code Source(s) Document(s ) SARS [facility] coronavirus 2 RNA This lab was ordered by [facility] and reported by [facility]. ID Date Data Source [id number] 02/25/2020 11:14:00 AM EDT [facility] Name Value Range Interpretation Description Data Sup porting Code Source(s) Document(s ) SARS [facility] coronavirus 2 RNA This lab was ordered by [facility] mchugh [facility] and reported by [facility]. ID Date Data Source [id number] 02/22/2020 11:39:00 AM EDT [facility] Name Value Range Interpretation Description Data Sup porting Code Source(s) Document(s ) SARS [facility] coronavirus 2 RNA [facility] and reported by [facility]. ID Date Data Source [id number] 02/18/2020 09:43:00 AM EDT [facility] Name Value Range Interpretation Description Data Sup porting Code Source(s) Document(s ) SARS [facility] coronavirus 2 RNA This lab was [facility] and reported by [facility]. ID Date Data Source [id number] 12/25/2019 12:47:00 PM EDT [facility] Name Value Range Interpretation Code Description Data Petra rce(s) Supporting Document(s ) COV2 [facility] This lab [facility] and reported by [facility]. ID Date Data Source [id number] 11/16/2019 10:40:00 AM EDT [facility] Name Value Range Interpretation Code Description Data Petra rce(s) Supporting Document(s ) COV2 [facility] This lab [facility] and reported by [facility] Procedure Social History Code Duration Value Status Description Data Source(s ) Caffeine Use 04/12/2020 completed tea, 1 cup NEXTGEN (Sixto nt Details 12:00:00 AM EDT [facility]) Smoking 04/12/2020 Unknown if completed Unknown if ever NEXTGEN ( [facility] 12:00:00 AM EDT ever smoked [facility]) Alcohol Use 03/22/2020 completed vodka 1 pint NEXTGEN (Sa int Details 12:00:00 AM EDT daily [facility]) Caffeine Use 06/18/2019 completed coffee, > 6 cups NEXTGE N ([facility] Details 12:00:00 AM EST [facility]) Vital Signs ID Date Data Source UNK Name Value Range Interpretation Code Description Data Source(s) Oxygen 98 % 98 % NEXTGEN saturation in ([facility]) Body mass index 21.47 kg/m2 21.47 kg/m2 NEXTGEN (BMI) [Ratio] ([facility]) Body temperature 36.67 Sugar 36.67 Sugar [facility] Heart rate 102 /min 102 /min [facility] Diastolic blood 78 mm[Hg] 78 mm[Hg] NEXTGEN pressure ([facility]) Systolic blood 121 mm[Hg] 121 mm[Hg] NEXTGEN pressure ([facility]) Body weight 60.328 kg 60.328 kg [facility] Body height 167.64 cm 167.64 cm [facility] Oxygen 98 % 98 % NEXTGEN saturation in ([facility]) Body mass index 21.63 kg/m2 21.63 kg/m2 NEXTGEN (BMI) [Ratio] ([facility]) Body temperature 36.78 Sugar 36.78 Sugar [facility] Heart rate 90 /min 90 /min [facility] Diastolic blood 76 mm[Hg] 76 mm[Hg] NEXTGEN pressure ([facility]) Systolic blood 125 mm[Hg] 125 mm[Hg] NEXTGEN pressure ([facility]) Body weight 60.781 kg 60.781 kg [facility] ([facility]) Body height 167.64 cm 167.64 cm [facility] ([facility]) Diastolic blood 72 mmHg 72 mmHg [facility] Systolic blood 113 mmHg 113 mmHg [facility] Heart rate 87 bpm 87 bpm [facility] Diastolic blood 78 mmHg 78 mmHg [facility] Systolic blood 115 mmHg 115 mmHg [facility] Respiratory rate 18 bpm 18 bpm [facility] Heart rate 81 bpm 81 bpm [facility] Body temperature 97.8 Fahrenheit 97.8 Fahrenhei t [facility] Body temperature 97.4 Fahrenheit 97.4 Fahrenhei t [facility] Diastolic blood 76 mmHg 76 mmHg [facility] Systolic blood 111 mmHg 111 mmHg [facility] Respiratory rate 16 bpm 16 bpm [facility] Heart rate 84 bpm 84 bpm [facility] Diastolic blood 68 mmHg 68 mmHg [facility] Systolic blood 110 mmHg 110 mmHg [facility] Respiratory rate 22 bpm 22 bpm [facility] Heart rate 73 bpm 73 bpm [facility] Body temperature 96.4 Fahrenheit 96.4 Fahrenhei t [facility] Diastolic blood 68 mmHg 68 mmHg [facility] Systolic blood 110 mmHg 110 mmHg [facility] Heart rate 73 bpm 73 bpm [facility] Diastolic blood 73 mmHg 73 mmHg [facility] Systolic blood 105 mmHg 105 mmHg [facility] Heart rate 79 bpm 79 bpm [facility] Diastolic blood 80 mmHg 80 mmHg [facility] Systolic blood 113 mmHg 113 mmHg [facility] Deprecated 98 % 98 % [facility] saturation in Hospital Capillary blood by [facility] Respiratory rate 16 bpm 16 bpm [facility] Heart rate 77 bpm 77 bpm [facility] Body temperature 98.6 Fahrenheit 98.6 Fahrenhei t [facility] Diastolic blood 66 mmHg 66 mmHg [facility] Systolic blood 103 mmHg 103 mmHg [facility] Heart rate 87 bpm 87 bpm [facility] Body weight 135 lbs 135 lbs [facility] Diastolic blood 73 mmHg 73 mmHg [facility] Systolic blood 109 mmHg 109 mmHg [facility] Deprecated 99 % 99 % [facility] saturation in Hospital Capillary blood by Oxim[facility] Respiratory rate 18 bpm 18 bpm [facility] Heart rate 79 bpm 79 bpm [facility] Body temperature 97.8 Fahrenheit 97.8 Fahrenhei t [facility] Diastolic blood 76 mmHg 76 mmHg [facility] Systolic blood 122 mmHg 122 mmHg [facility] Respiratory rate 18 bpm 18 bpm [facility] Heart rate 89 bpm 89 bpm [facility] Body temperature 97.9 Fahrenheit 97.9 Fahrenhei t [facility] Diastolic blood 78 mmHg 78 mmHg [facility] Systolic blood 126 mmHg 126 mmHg [facility] Respiratory rate 18 bpm 18 bpm [facility] Heart rate 86 bpm 86 bpm [facility] Body temperature 97.9 Fahrenheit 97.9 Fahrenhei t [facility] Respiratory rate 18 bpm 18 bpm [facility] Body temperature 97.8 Fahrenheit 97.8 Fahrenhei t [facility] Diastolic blood 84 mmHg 84 mmHg [facility] Systolic blood 118 mmHg 118 mmHg [facility] Heart rate 79 bpm 79 bpm [facility] Body temperature 97.4 Fahrenheit 97.4 Fahrenhei t [facility] Diastolic blood 74 mmHg 74 mmHg [facility] Systolic blood 110 mmHg 110 mmHg [facility] Respiratory rate 18 bpm 18 bpm [facility] Heart rate 76 bpm 76 bpm [facility] Respiratory rate 18 bpm 18 bpm [facility] Body temperature 97.3 Fahrenheit 97.3 Fahrenhei t [facility] Diastolic blood 74 mmHg 74 mmHg [facility] Systolic blood 104 mmHg 104 mmHg [facility] Heart rate 81 bpm 81 bpm [facility] Diastolic blood 72 mmHg 72 mmHg [facility] Systolic blood 109 mmHg 109 mmHg [facility] Respiratory rate 18 bpm 18 bpm [facility] Heart rate 78 bpm 78 bpm [facility] Body temperature 98.0 Fahrenheit 98.0 Fahrenh t [facility] Diastolic blood 71 mmHg 71 mmHg [facility] Systolic blood 98 mmHg 98 mmHg [facility] Heart rate 90 bpm 90 bpm [facility] Body weight 134 lbs 134 lbs [facility] Diastolic blood 72 mmHg 72 mmHg [facility] Systolic blood 102 mmHg 102 mmHg [facility] Deprecated 96 % 96 % [facility] saturation in Hospital Capillary blood by Oxim[facility] Respiratory rate 16 bpm 16 bpm [facility] Heart rate 85 bpm 85 bpm [facility] Body temperature 97.5 Fahrenheit 97.5 Fahrenhei t [facility] Diastolic blood 77 mmHg 77 mmHg [facility] Systolic blood 99 mmHg 99 mmHg [facility] Respiratory rate 18 bpm 18 bpm [facility] Heart rate 81 bpm 81 bpm [facility] Body temperature 96.3 Fahrenheit 96.3 Fahrenhei t [facility] Diastolic blood 67 mmHg 67 mmHg [facility] Systolic blood 101 mmHg 101 mmHg [facility] Respiratory rate 18 bpm 18 bpm [facility] Heart rate 76 bpm 76 bpm [facility] Diastolic blood 67 mmHg 67 mmHg [facility] Systolic blood 110 mmHg 110 mmHg [facility] Respiratory rate 18 bpm 18 bpm [facility] Heart rate 72 bpm 72 bpm [facility] Body temperature 96.5 Fahrenheit 96.5 Fahrenhei t [facility] Diastolic blood 74 mmHg 74 mmHg [facility] Systolic blood 101 mmHg 101 mmHg [facility] Heart rate 82 bpm 82 bpm [facility] Diastolic blood 73 mmHg 73 mmHg [facility] Systolic blood 108 mmHg 108 mmHg [facility] Respiratory rate 18 bpm 18 bpm [facility] Heart rate 75 bpm 75 bpm [facility] Body temperature 98.0 Fahrenheit 98.0 Fahrenhei t [facility] Diastolic blood 67 mmHg 67 mmHg [facility] Systolic blood 107 mmHg 107 mmHg [facility] Heart rate 81 bpm 81 bpm [facility] Diastolic blood 67 mmHg 67 mmHg [facility] Systolic blood 104 mmHg 104 mmHg [facility] Respiratory rate 18 bpm 18 bpm [facility] Heart rate 76 bpm 76 bpm [facility] Body temperature 96.3 Fahrenheit 96.3 Fahrenhei t [facility] Diastolic blood 70 mmHg 70 mmHg [facility] Systolic blood 111 mmHg 111 mmHg [facility] Heart rate 88 bpm 88 bpm [facility] Diastolic blood 72 mmHg 72 mmHg [facility] Systolic blood 106 mmHg 106 mmHg [facility] Respiratory rate 18 bpm 18 bpm [facility] Heart rate 83 bpm 83 bpm [facility] Body temperature 97.7 Fahrenheit 97.7 Fahrenhei t [facility] Diastolic blood 76 mmHg 76 mmHg [facility] Systolic blood 114 mmHg 114 mmHg [facility] Heart rate 78 bpm 78 bpm [facility] Diastolic blood 71 mmHg 71 mmHg [facility] Systolic blood 111 mmHg 111 mmHg [facility] Respiratory rate 22 bpm 22 bpm [facility] Heart rate 74 bpm 74 bpm [facility] Body temperature 98.1 Fahrenheit 98.1 Fahrenhei t [facility] Diastolic blood 65 mmHg 65 mmHg [facility] Systolic blood 90 mmHg 90 mmHg [facility] Heart rate 87 bpm 87 bpm [facility] Diastolic blood 64 mmHg 64 mmHg [facility] Systolic blood 97 mmHg 97 mmHg [facility] Respiratory rate 18 bpm 18 bpm [facility] Heart rate 83 bpm 83 bpm [facility] Body temperature 96.8 Fahrenheit 96.8 Fahrenhei t [facility] Diastolic blood 72 mmHg 72 mmHg [facility] Systolic blood 103 mmHg 103 mmHg [facility] Heart rate 75 bpm 75 bpm [facility] Diastolic blood 71 mmHg 71 mmHg [facility] Systolic blood 103 mmHg 103 mmHg [facility] Respiratory rate 18 bpm 18 bpm [facility] Heart rate 75 bpm 75 bpm [facility] Body temperature 97.6 Fahrenheit 97.6 Fahrenhei t [facility] Diastolic blood 67 mmHg 67 mmHg [facility] Systolic blood 97 mmHg 97 mmHg [facility] Respiratory rate 18 bpm 18 bpm [facility] Heart rate 83 bpm 83 bpm [facility] Diastolic blood 65 mmHg 65 mmHg [facility] Systolic blood 100 mmHg 100 mmHg [facility] Respiratory rate 18 bpm 18 bpm [facility] Heart rate 78 bpm 78 bpm [facility] Body temperature 96.8 Fahrenheit 96.8 Fahrenhei t [facility] Diastolic blood 62 mmHg 62 mmHg [facility] Systolic blood 88 mmHg 88 mmHg [facility] Heart rate 88 bpm 88 bpm [facility] Diastolic blood 58 mmHg 58 mmHg [facility] Systolic blood 94 mmHg 94 mmHg [facility] Deprecated 97 % 97 % [facility] saturation in Hospital Capillary blood by Oxim[facility] Respiratory rate 18 bpm 18 bpm [facility] Heart rate 81 bpm 81 bpm [facility] Body temperature 97.1 Fahrenheit 97.1 Fahrenhei t [facility] Diastolic blood 67 mmHg 67 mmHg [facility] Systolic blood 102 mmHg 102 mmHg [facility] Respiratory rate 20 bpm 20 bpm [facility] Heart rate 74 bpm 74 bpm [facility] Body temperature 98.0 Fahrenheit 98.0 Fahrenhei t [facility] Diastolic blood 67 mmHg 67 mmHg [facility] Systolic blood 102 mmHg 102 mmHg [facility] Respiratory rate 20 bpm 20 bpm [facility] Heart rate 79 bpm 79 bpm [facility] Body temperature 98.0 Fahrenheit 98.0 Fahrenhei t [facility] Body temperature 98.8 Fahrenheit 98.8 Fahrenhei t [facility] Diastolic blood 59 mmHg 59 mmHg [facility] Systolic blood 94 mmHg 94 mmHg [facility] Respiratory rate 18 bpm 18 bpm [facility] Heart rate 84 bpm 84 bpm [facility] Diastolic blood 70 mmHg 70 mmHg [facility] Systolic blood 106 mmHg 106 mmHg [facility] Heart rate 75 bpm 75 bpm [facility] Diastolic blood 68 mmHg 68 mmHg [facility] Systolic blood 107 mmHg 107 mmHg [facility] Respiratory rate 18 bpm 18 bpm [facility] Heart rate 73 bpm 73 bpm [facility] Body temperature 98.0 Fahrenheit 98.0 Fahrenhei t [facility] Systolic blood 117 mmHg 117 mmHg [facility] Heart rate 82 bpm 82 bpm [facility] Diastolic blood 73 mmHg 73 mmHg [facility] Diastolic blood 67 mmHg 67 mmHg [facility] Systolic blood 109 mmHg 109 mmHg [facility] Respiratory rate 18 bpm 18 bpm [facility] Heart rate 76 bpm 76 bpm [facility] Body temperature 98.4 Fahrenheit 98.4 Fahrenhei t [facility] Respiratory rate 18 bpm 18 bpm [facility] Body temperature 98.0 Fahrenheit 98.0 Fahrenhei t [facility] Diastolic blood 73 mmHg 73 mmHg [facility] Systolic blood 108 mmHg 108 mmHg [facility] Heart rate 74 bpm 74 bpm [facility] Diastolic blood 72 mmHg 72 mmHg [facility] Systolic blood 109 mmHg 109 mmHg [facility] Respiratory rate 18 bpm 18 bpm [facility] Heart rate 76 bpm 76 bpm [facility] Body temperature 98.0 Fahrenheit 98.0 Fahrenhei t [facility] Diastolic blood 75 mmHg 75 mmHg [facility] Systolic blood 108 mmHg 108 mmHg [facility] Heart rate 82 bpm 82 bpm [facility] Diastolic blood 72 mmHg 72 mmHg [facility] Systolic blood 109 mmHg 109 mmHg [facility] Respiratory rate 18 bpm 18 bpm [facility] Heart rate 79 bpm 79 bpm [facility] Body temperature 98.3 Fahrenheit 98.3 Fahrenhei t [facility] Diastolic blood 69 mmHg 69 mmHg [facility] Systolic blood 101 mmHg 101 mmHg [facility] Heart rate 72 bpm 72 bpm [facility] Diastolic blood 71 mmHg 71 mmHg [facility] Systolic blood 108 mmHg 108 mmHg [facility] Respiratory rate 18 bpm 18 bpm [facility] Heart rate 70 bpm 70 bpm [facility] Body temperature 97.7 Fahrenheit 97.7 Fahrenhei t [facility] Diastolic blood 70 mmHg 70 mmHg [facility] Systolic blood 107 mmHg 107 mmHg [facility] Heart rate 82 bpm 82 bpm [facility] Diastolic blood 79 mmHg 79 mmHg [facility] Systolic blood 102 mmHg 102 mmHg [facility] Respiratory rate 18 bpm 18 bpm [facility] Heart rate 79 bpm 79 bpm [facility] Body temperature 97.5 Fahrenheit 97.5 Fahrenhei t [facility] Diastolic blood 71 mmHg 71 mmHg [facility] Systolic blood 116 mmHg 116 mmHg [facility] Respiratory rate 18 bpm 18 bpm [facility] Heart rate 79 bpm 79 bpm [facility] Diastolic blood 75 mmHg 75 mmHg [facility] Systolic blood 115 mmHg 115 mmHg [facility] Respiratory rate 18 bpm 18 bpm [facility] Heart rate 76 bpm 76 bpm [facility] Body temperature 98.2 Fahrenheit 98.2 Fahrenhei t [facility] Diastolic blood 88 mmHg 88 mmHg [facility] Systolic blood 146 mmHg 146 mmHg [facility] Respiratory rate 18 bpm 18 bpm [facility] Heart rate 67 bpm 67 bpm [facility] Body temperature 97.5 Fahrenheit 97.5 Fahrenhei t [facility] Diastolic blood 69 mmHg 69 mmHg [facility] Systolic blood 107 mmHg 107 mmHg [facility] Respiratory rate 18 bpm 18 bpm [facility] Heart rate 81 bpm 81 bpm [facility] Body weight 124 lbs 124 lbs [facility] Diastolic blood 71 mmHg 71 mmHg [facility] Systolic blood 105 mmHg 105 mmHg [facility] Respiratory rate 18 bpm 18 bpm [facility] Heart rate 78 bpm 78 bpm [facility] Body temperature 99.1 Fahrenheit 99.1 Fahrenhei t [facility] Diastolic blood 71 mmHg 71 mmHg [facility] Systolic blood 126 mmHg 126 mmHg [facility] Heart rate 71 bpm 71 bpm [facility] Diastolic blood 76 mmHg 76 mmHg [facility] Systolic blood 108 mmHg 108 mmHg [facility] Deprecated 97 % 97 % [facility] Capillary blood by Oximetry Respiratory rate 18 bpm 18 bpm [facility] Heart rate 72 bpm 72 bpm [facility] Body temperature 97.8 Fahrenheit 97.8 Fahrenhei t [facility] Diastolic blood 67 mmHg 67 mmHg [facility] Systolic blood 103 mmHg 103 mmHg [facility] Heart rate 77 bpm 77 bpm [facility] Diastolic blood 76 mmHg 76 mmHg [facility] Systolic blood 109 mmHg 109 mmHg [facility] Respiratory rate 18 bpm 18 bpm [facility] Heart rate 78 bpm 78 bpm [facility] Body temperature 98.2 Fahrenheit 98.2 Fahrenhei t [facility] Respiratory rate 18 bpm 18 bpm [facility] Body temperature 98.5 Fahrenheit 98.5 Fahrenhei t [facility] Diastolic blood 69 mmHg 69 mmHg [facility] Systolic blood 97 mmHg 97 mmHg [facility] Heart rate 75 bpm 75 bpm [facility] Diastolic blood 70 mmHg 70 mmHg [facility] Systolic blood 102 mmHg 102 mmHg [facility] Respiratory rate 18 bpm 18 bpm [facility] Heart rate 79 bpm 79 bpm [facility] Diastolic blood 76 mmHg 76 mmHg [facility] Systolic blood 112 mmHg 112 mmHg [facility] Respiratory rate 18 bpm 18 bpm [facility] Heart rate 71 bpm 71 bpm [facility] Body temperature 98.2 Fahrenheit 98.2 Fahrenhei t [facility] Diastolic blood 71 mmHg 71 mmHg [facility] Systolic blood 109 mmHg 109 mmHg [facility] Respiratory rate 18 bpm 18 bpm [facility] Heart rate 81 bpm 81 bpm [facility] Diastolic blood 77 mmHg 77 mmHg [facility] Systolic blood 114 mmHg 114 mmHg [facility] Respiratory rate 18 bpm 18 bpm [facility] Heart rate 81 bpm 81 bpm [facility] Body temperature 97.9 Fahrenheit 97.9 Fahrenhei t [facility] Diastolic blood 76 mmHg 76 mmHg [facility] Systolic blood 115 mmHg 115 mmHg [facility] Respiratory rate 18 bpm 18 bpm [facility] Heart rate 73 bpm 73 bpm [facility] Body temperature 96.4 Fahrenheit 96.4 Fahrenhei t [facility] Diastolic blood 88 mmHg 88 mmHg [facility] Systolic blood 129 mmHg 129 mmHg [facility] Respiratory rate 18 bpm 18 bpm [facility] Heart rate 73 bpm 73 bpm [facility] Body temperature 96.4 Fahrenheit 96.4 Fahrenhei t [facility] Diastolic blood 76 mmHg 76 mmHg [facility] Systolic blood 114 mmHg 114 mmHg [facility] Heart rate 77 bpm 77 bpm [facility] Diastolic blood 71 mmHg 71 mmHg [facility] Systolic blood 108 mmHg 108 mmHg [facility] Respiratory rate 18 bpm 18 bpm [facility] Heart rate 77 bpm 77 bpm [facility] Body temperature 97.1 Fahrenheit 97.1 Fahrenhei t [facility] Diastolic blood 68 mmHg 68 mmHg [facility] Systolic blood 105 mmHg 105 mmHg [facility] Deprecated 99 % 99 % [facility] saturation in Hospital Capillary blood by Oximetry Respiratory rate 18 bpm 18 bpm [facility] Heart rate 80 bpm 80 bpm [facility] Diastolic blood 71 mmHg 71 mmHg [facility] Systolic blood 99 mmHg 99 mmHg [facility] Deprecated 99 % 99 % [facility] saturation in Hospital Capillary blood by Oximetry Respiratory rate 18 bpm 18 bpm [facility] Heart rate 78 bpm 78 bpm [facility] Systolic blood 107 mmHg 107 mmHg [facility] Respiratory rate 18 bpm 18 bpm [facility] Heart rate 75 bpm 75 bpm [facility] [facility] Body temperature 97.9 Fahrenheit 97.9 Fahrenhei t [facility] Diastolic blood 75 mmHg 75 mmHg [facility] Diastolic blood 60 mmHg 60 mmHg [facility] Systolic blood 95 mmHg 95 mmHg [facility] Heart rate 80 bpm 80 bpm [facility] Diastolic blood 65 mmHg 65 mmHg [facility] Systolic blood 99 mmHg 99 mmHg [facility] Respiratory rate 16 bpm 16 bpm [facility] Heart rate 76 bpm 76 bpm [facility] Body temperature 97.4 Fahrenheit 97.4 Fahrenhei t [facility] Diastolic blood 68 mmHg 68 mmHg [facility] Systolic blood 103 mmHg 103 mmHg [facility] Heart rate 86 bpm 86 bpm [facility] Diastolic blood 54 mmHg 54 mmHg [facility] Systolic blood 99 mmHg 99 mmHg [facility] Respiratory rate 18 bpm 18 bpm [facility] Heart rate 87 bpm 87 bpm [facility] Body temperature 98.9 Fahrenheit 98.9 Fahrenhei t [facility] Body weight 129 lbs 129 lbs [facility] Diastolic blood 68 mmHg 68 mmHg [facility] Systolic blood 104 mmHg 104 mmHg [facility] Respiratory rate 18 bpm 18 bpm [facility] Heart rate 86 bpm 86 bpm [facility] Body temperature 95.8 Fahrenheit 95.8 Fahrenhei t [facility] Diastolic blood 68 mmHg 68 mmHg [facility] Systolic blood 103 mmHg 103 mmHg [facility] Respiratory rate 18 bpm 18 bpm [facility] Heart rate 74 bpm 74 bpm [facility] Body temperature 97.5 Fahrenheit 97.5 Fahrenhei t [facility] Diastolic blood 59 mmHg 59 mmHg [facility] Systolic blood 87 mmHg 87 mmHg [facility] Heart rate 80 bpm 80 bpm [facility] Diastolic blood 65 mmHg 65 mmHg [facility] Systolic blood 98 mmHg 98 mmHg [facility] Respiratory rate 17 bpm 17 bpm [facility] Heart rate 75 bpm 75 bpm [facility] Body temperature 96.9 Fahrenheit 96.9 Fahrenhei t [facility] Diastolic blood 57 mmHg 57 mmHg [facility] Systolic blood 96 mmHg 96 mmHg [facility] Heart rate 78 bpm 78 bpm [facility] Diastolic blood 60 mmHg 60 mmHg [facility] Systolic blood 85 mmHg 85 mmHg [facility] Respiratory rate 18 bpm 18 bpm [facility] Heart rate 76 bpm 76 bpm [facility] Body temperature 99.0 Fahrenheit 99.0 Fahrenhei t [facility] Body weight 128 lbs 128 lbs [facility] Diastolic blood 68 mmHg 68 mmHg [facility] Systolic blood 108 mmHg 108 mmHg [facility] Respiratory rate 18 bpm 18 bpm [facility] Heart rate 73 bpm 73 bpm [facility] Body temperature 96.2 Fahrenheit 96.2 Fahrenhei t [facility] Diastolic blood 64 mmHg 64 mmHg [facility] Systolic blood 96 mmHg 96 mmHg [facility] Respiratory rate 18 bpm 18 bpm [facility] Heart rate 80 bpm 80 bpm [facility] Diastolic blood 59 mmHg 59 mmHg [facility] Systolic blood 92 mmHg 92 mmHg [facility] Respiratory rate 18 bpm 18 bpm [facility] Heart rate 72 bpm 72 bpm [facility] Body temperature 97.5 Fahrenheit 97.5 Fahrenhei t [facility] Diastolic blood 61 mmHg 61 mmHg [facility] Systolic blood 95 mmHg 95 mmHg [facility] Heart rate 83 bpm 83 bpm [facility] Body weight 125 lbs 125 lbs [facility] Diastolic blood 67 mmHg 67 mmHg [facility] Systolic blood 100 mmHg 100 mmHg [facility] Deprecated 98 % 98 % [facility] saturation in Hospital Capillary blood by Oximetry Respiratory rate 16 bpm 16 bpm [facility] Heart rate 77 bpm 77 bpm [facility] Body temperature 98.2 Fahrenheit 98.2 Fahrenhei t [facility] Diastolic blood 69 mmHg 69 mmHg [facility] Systolic blood 105 mmHg 105 mmHg [facility] Respiratory rate 18 bpm 18 bpm [facility] Heart rate 74 bpm 74 bpm [facility] Body weight 128 lbs 128 lbs [facility] Diastolic blood 58 mmHg 58 mmHg [facility] Systolic blood 94 mmHg 94 mmHg [facility] Deprecated 97 % 97 % [facility] saturation in Hospital Capillary blood by Oximetry Respiratory rate 18 bpm 18 bpm [facility] Heart rate 81 bpm 81 bpm [facility] Body temperature 99.2 Fahrenheit 99.2 Fahrenhei t [facility] Diastolic blood 66 mmHg 66 mmHg [facility] Systolic blood 106 mmHg 106 mmHg [facility] Respiratory rate 18 bpm 18 bpm [facility] Heart rate 78 bpm 78 bpm [facility] Diastolic blood 61 mmHg 61 mmHg [facility] Systolic blood 99 mmHg 99 mmHg [facility] Respiratory rate 18 bpm 18 bpm [facility] Heart rate 73 bpm 73 bpm [facility] Body temperature 95.5 Fahrenheit 95.5 Fahrenhei t [facility] Diastolic blood 66 mmHg 66 mmHg [facility] Systolic blood 97 mmHg 97 mmHg [facility] Respiratory rate 18 bpm 18 bpm [facility] Heart rate 78 bpm 78 bpm [facility] Diastolic blood 68 mmHg 68 mmHg [facility] Systolic blood 100 mmHg 100 mmHg [facility] Respiratory rate 18 bpm 18 bpm [facility] Heart rate 70 bpm 70 bpm [facility] Body temperature 96.1 Fahrenheit 96.1 Fahrenhei t [facility] Diastolic blood 64 mmHg 64 mmHg [facility] Systolic blood 94 mmHg 94 mmHg [facility] Respiratory rate 18 bpm 18 bpm [facility] Heart rate 92 bpm 92 bpm [facility] Diastolic blood 57 mmHg 57 mmHg [facility] Systolic blood 92 mmHg 92 mmHg [facility] Respiratory rate 18 bpm 18 bpm [facility] Heart rate 89 bpm 89 bpm [facility] Body temperature 97.4 Fahrenheit 97.4 Fahrenhei t [facility] Diastolic blood 68 mmHg 68 mmHg [facility] Systolic blood 96 mmHg 96 mmHg [facility] Heart rate 88 bpm 88 bpm [facility] Diastolic blood 61 mmHg 61 mmHg [facility] Systolic blood 92 mmHg 92 mmHg [facility] Deprecated 97 % 97 % [facility] saturation in Hospital Capillary blood by Oximetry Respiratory rate 18 bpm 18 bpm [facility] Heart rate 78 bpm 78 bpm [facility] Body temperature 97.8 Fahrenheit 97.8 Fahrenhei t [facility] Body weight 124 lbs 124 lbs [facility] Diastolic blood 62 mmHg 62 mmHg [facility] Systolic blood 106 mmHg 106 mmHg [facility] Respiratory rate 18 bpm 18 bpm [facility] Heart rate 87 bpm 87 bpm [facility] Diastolic blood 68 mmHg 68 mmHg [facility] Systolic blood 108 mmHg 108 mmHg [facility] Respiratory rate 18 bpm 18 bpm [facility] Heart rate 83 bpm 83 bpm [facility] Body temperature 94.4 Fahrenheit 94.4 Fahrenhei t [facility] Diastolic blood 66 mmHg 66 mmHg [facility] Systolic blood 100 mmHg 100 mmHg [facility] Respiratory rate 18 bpm 18 bpm [facility] Heart rate 95 bpm 95 bpm [facility] Diastolic blood 74 mmHg 74 mmHg [facility] Systolic blood 108 mmHg 108 mmHg [facility] Respiratory rate 18 bpm 18 bpm [facility] Heart rate 93 bpm 93 bpm [facility] Body temperature 97.8 Fahrenheit 97.8 Fahrenhei t [facility] Diastolic blood 72 mmHg 72 mmHg [facility] Systolic blood 110 mmHg 110 mmHg [facility] Respiratory rate 18 bpm 18 bpm [facility] Heart rate 88 bpm 88 bpm [facility] Body temperature 97.5 Fahrenheit 97.5 Fahrenhei t [facility] Diastolic blood 65 mmHg 65 mmHg [facility] Systolic blood 95 mmHg 95 mmHg [facility] Heart rate 102 bpm 102 bpm [facility] Diastolic blood 77 mmHg 77 mmHg [facility] Systolic blood 111 mmHg 111 mmHg [facility] Respiratory rate 18 bpm 18 bpm [facility] Heart rate 100 bpm 100 bpm [facility] Body temperature 97.6 Fahrenheit 97.6 Fahrenhei t [facility] Body weight 116 lbs 116 lbs [facility] Diastolic blood 71 mmHg 71 mmHg [facility] Systolic blood 107 mmHg 107 mmHg [facility] Deprecated 106 % 106 % [facility] saturation in Hospital Capillary blood by Oximetry Respiratory rate 18 bpm 18 bpm [facility] Heart rate 93 bpm 93 bpm [facility] Body temperature 96.9 Fahrenheit 96.9 Fahrenhei t [facility] Body weight 116 lbs 116 lbs [facility] Diastolic blood 92 mmHg 92 mmHg [facility] Systolic blood 132 mmHg 132 mmHg [facility] Deprecated 106 % 106 % [facility] saturation in Hospital Capillary blood by Oximetry Respiratory rate 18 bpm 18 bpm [facility] Heart rate 87 bpm 87 bpm [facility] Body temperature 96.9 Fahrenheit 96.9 Fahrenhei t [facility] Diastolic blood 62 mmHg 62 mmHg [facility] Systolic blood 87 mmHg 87 mmHg [facility] Respiratory rate 18 bpm 18 bpm [facility] Heart rate 101 bpm 101 bpm [facility] Systolic blood 105 mmHg 105 mmHg [facility] Respiratory rate 18 bpm 18 bpm [facility] Heart rate 100 bpm 100 bpm [facility] Body temperature 97.5 Fahrenheit 97.5 Fahrenhei t [facility] Body weight 115 lbs 115 lbs [facility] Diastolic blood 79 mmHg 79 mmHg [facility] Body weight 116 lbs 116 lbs [facility] Diastolic blood 63 mmHg 63 mmHg [facility] Systolic blood 92 mmHg 92 mmHg [facility] Respiratory rate 18 bpm 18 bpm [facility] Heart rate 102 bpm 102 bpm [facility] Diastolic blood 72 mmHg 72 mmHg [facility] Systolic blood 123 mmHg 123 mmHg [facility] Respiratory rate 18 bpm 18 bpm [facility] Heart rate 100 bpm 100 bpm [facility] Body temperature 98.8 Fahrenheit 98.8 Fahrenhei t [facility] Diastolic blood 64 mmHg 64 mmHg [facility] Systolic blood 103 mmHg 103 mmHg [facility] Heart rate 127 bpm 127 bpm [facility] Diastolic blood 82 mmHg 82 mmHg [facility] Systolic blood 124 mmHg 124 mmHg [facility] Respiratory rate 18 bpm 18 bpm [facility] Heart rate 112 bpm 112 bpm [facility] Body temperature 98.6 Fahrenheit 98.6 Fahrenhei t [facility] Diastolic blood 69 mmHg 69 mmHg [facility] Systolic blood 98 mmHg 98 mmHg [facility] Deprecated 99 % 99 % [facility] saturation in Hospital Capillary blood by Oximetry Respiratory rate 18 bpm 18 bpm [facility] Heart rate 98 bpm 98 bpm [facility] Body temperature 97.8 Fahrenheit 97.8 Fahrenhei t [facility] Diastolic blood 82 mmHg 82 mmHg [facility] Systolic blood 114 mmHg 114 mmHg [facility] Deprecated 98 % 98 % [facility] Oxygen [facility] saturation in Hospital Capillary blood by Oximetry Respiratory rate 18 bpm 18 bpm [facility] Heart rate 107 bpm 107 bpm [facility] Body temperature 98.2 Fahrenheit 98.2 Fahrenhei t [facility] Diastolic blood 63 mmHg 63 mmHg [facility] Systolic blood 92 mmHg 92 mmHg [facility] Heart rate 113 bpm 113 bpm [facility] Diastolic blood 74 mmHg 74 mmHg [facility] Systolic blood 105 mmHg 105 mmHg [facility] Respiratory rate 19 bpm 19 bpm [facility] Heart rate 109 bpm 109 bpm [facility] Body temperature 98.3 Fahrenheit 98.3 Fahrenh t [facility] Oxygen 98 % 98 % NEXTGEN saturation in ([facility] blood [facility] by [facility]) Body mass index 20.18 kg/m2 20.18 kg/m2 NEXTGEN (BMI) [Ratio] ([facility]) Body temperature 36.67 Sugar 36.67 Sugar NEXTGEN ([facility]) Heart rate 110 /min 110 /min NEXTGEN ([facility]) Diastolic blood 88 mm[Hg] 88 mm[Hg] [facility] pressure ([facility]) Systolic blood 132 mm[Hg] 132 mm[Hg] [facility] pressure ([facility]) Body weight 56.699 kg 56.699 kg [facility] ([facility]) Body height 167.64 cm 167.64 cm [facility] ([facility]) ID Date Data Source [id number] 03/02/2020 01:50:59 PM EDT [facility] Name Value Range Interpretation Code Description Data Source(s) Body weight Measured 135 lb 135 lb [facility] Body weight Measured 134 lb 134 lb [facility] Body weight Measured 124 lb 124 lb [facility] Body weight Measured 129 lb 129 lb [facility] Body weight Measured 128 lb 128 lb [facility] Body weight Measured 125 lb 125 lb [facility] Body weight Measured 128 lb 128 lb [facility] Body weight Measured 124 lb 124 lb [facility] Body weight Measured 116 lb 116 lb [facility] Body weight Measured 115 lb 115 lb [facility] Body weight Measured 116 lb 116 lb [facility] Patient Treatment Plan of Care Planned [...] GEN ([facility] succinate 50 MG Extended AM EDT [facility]) [Toprol] 24 HR metoprolol 04/15/2020 12:00:00 NEXT GEN ([facility] succinate 50 MG Extended AM EDT [facility]) [Toprol] POLYETHYLENE GLYCOL 3350 04/15/2020 12:00:00 NEXTGEN ([facility] 142 MG/ML Oral Solution AM EDT [facility] [Miralax] Center) Omeprazole 40 MG Delayed 04/15/2020 12:00:00 NEXTGEN ([facility] Release Oral Capsule [facility]) Omeprazole 40 MG Delayed 03/15/2020 12:00:00 NEXTGEN ([facility] Release Oral Capsule [facility]) 24 HR metoprolol 03/15/2020 12:00:00 NEXT GEN ([facility] succinate 50 MG Extended [facility] Medical Release Oral Tablet Center) [Toprol] Mirtazapine 30 MG Oral 03/15/2020 12:00:00 NEXTGEN ([facility] Tablet [Remeron] [facility] Haldol Decanoate 100 03/15/2020 12:00:00 NEXTGEN (Saint mg/mL intramuscular [facility]) benztropine mesylate 1 MG 03/15/2020 12:00:00 NEXTGEN (Saint Oral Tablet [facility]) Trazodone Hydrochloride 03/15/2020 12:00:00 NEXTGEN ([facility] 150 MG Oral Tablet [facility]) Clozaril 50 mg tablet 03/15/2020 12:00:00 NEXTGEN ([facility]) POLYETHYLENE GLYCOL 3350 11/13/2018 12:00:00 NEXTGEN ([facility] 142 MG/ML Oral Solution [facility] [Miralax] [place]) Clotrimazole 10 MG/ML 11/13/2018 12:00:00 NEXTGEN ([facility] Topical Cream [Lotrimin] Health system) Clozapine 100 MG Oral 11/13/2018 12:00:00 NEXTGEN ([facility] Tablet [facility]) benztropine mesylate 1 MG 08/14/2018 12:00:00 NEXTGEN ([facility] Oral Tablet [facility]) 24 HR Bupropion 08/14/2018 12:00:00 NEXTG EN ([facility] Hydrochloride 300 MG [facility] Extended Release Oral [place] ) Tablet [Wellbutrin] Trazodone Hydrochloride 08/14/2018 12:00:00 NEXTGEN ([facility] 150 MG Oral Tablet [facility]) Metoprolol Tartrate 25 MG 08/14/2018 12:00:00 NEXTGEN ([facility] Oral Tablet [facility]) Risperidone 2 MG Oral 11/13/2017 12:00:00 LIZETTE ([facility] [place] [Risperdal] AM [facility])
[2020-05-05 07:45] VITALS: BMI 20.9
[2020-05-05] MEDS ORDERED: KETAMINE HCL 500 MG/10 ML VIAL ONE (09:09)
[2020-05-05] MEDS ORDERED: PROPOFOL 20 ML ONE (09:09)
[2020-05-05 11:30] VITALS: TEMP 98.9
[2020-05-05 11:42] VITALS: BP 134/89; PULSE 120
== END 2020-05-05 11:00 | disposition home or self-care (01) ==
LOC: FECT 06:04
PROVIDERS: ATTEND Psychiatry & Neurology Psychiatry
PROC: GZB4ZZZ Other Electroconvulsive Therapy (ICD-10-PCS; principal; 2020-05-05 09:30)
DX: F33.2 Major depressive disorder, recurrent severe without psychotic features (principal)
CPT/HCPCS: 90870; 94760

== ENCOUNTER 2020-05-12 06:41 | Day surgery (SDC) | payer OTHER ==
--- OUTSIDE RECORDS SUMMARY | 2020-05-12 06:48 | XMS ---
:1980 Author Organization [facility] Care Team Providers Name Role Phone RAMONITA WYMAN MD Unavailable Unavailable MD BENTLEY Unavailable Unavailable ANABAPTIST, HUMAYUN Unavailable Unavailable Coon Unavailable Unavailable Coon Unavailable Unavailable Coon Unavailable Unavailable Coon Unavailable Unavailable Coon Unavailable Unavailable Coon Unavailable Unavailable COON RODRIGO B Unavailable Unavailable TRUDY VALENTE MD Unavailable Unavailable HHCCC Unavailable Unavailable MD LC Unavailable Unavailable KEILA REYNOSO Unavailable Unavailable LC Demarco Unavailable Unavailable ALONSO, CUT OFF TENDER GLASS Unavailable Unavailable ZUNASSIGNED Unavailable Unavailable ZUNASSIGNED@, Unavailable [...] is protected by Article 27-F of the [facility] Public Health law. If you continue you may haveaccess to information: Regarding HIV / AIDS; Provided by facilities licensed or operated by the [facility] Office of Mental Health; or Provided by the [facility] Office for People With Developmental Disabilities. If such information is present, then the following [facility] mandated warning applies: This information has [...] law may result in a fine or longterm sentence or both. A general authorization for the release of medical or other information is NOT sufficient authorization for further disclosure. Family History Family Member Family Member Family Member Date of Description Data Source(s) Name Gender Status Status Unknown Male Problem 11/13/2017 [facility] 12:00:00 AM [facility]) Encounters Encounter Providers Location Date Indications Data Source(s ) Outpatient 07/12/2020 [facility] 12:04:00 PM Medical Cente r EST Outpatient [facility]: [facility] ZUNASSIGNEDReferrer: EST [id number] ZUNASSIGNED@, Outpatient Attender: [facility]2020 [facility] 11:[facility]00 AM Med ical Center ZUNASSIGNEDReferrer: EST [id number] ZUNASSIGNED@, Outpatient Admitter: [id number] 05/24/2020 [facility] ZUNASSIGNED@,Referre 12:00:00 AM Med ical Center r: [id number] EST ZUNASSIGNED@, Outpatient Attender: [facility]/2020 [facility] 01:[facility]00 PM Med ical Center ZUNASSIGNEDReferrer: EDT [id number] ZUNASSIGNED@, Outpatient Attender: RODRIGO Kaur 05/10/2020 [facility] ANNETTE WALLACE 11:01:00 AM Medical Ce nter BAdmitter: RODRIGO WALLACE BReferrer: RODRIGO Matute Outpatient Admitter: [id number] 05/10/2020 [facility] ZUNASSIGNED@,Referre 12:00:00 AM [facility] r: [id number] EDT ZUNASSIGNED@, Outpatient Attender: [id number] [facility] 04/18/[address] [facility] ([facility] 05:49:36 PM [facility] EDT Collaborative) Patient admitted. Attender: La Ward 04/15/2020 [facility] 09:55:00 AM EDT ([facility] 04/15/2020 [facility] 09:55:00 AM EDT Medical Center) Attender: La Ward 04/12/2020 [facility] 10:07:00 AM EDT ([facility] 04/12/2020 [facility] 10:07:00 AM EDT Medical Center) Attender: La Ward 04/08/2020 [facility] 11:04:00 AM EDT ([facility] 04/08/2020 [facility] 11:04:00 AM EDT Medical Center) Attender: La Ward 03/23/2020 [facility] 12:46:00 PM EDT ([facility] 03/23/2020 [facility] 12:46:00 PM EDT Medical Center) Outpatient 03/22/2020 [facility] 01:11:00 PM EDT Medical Center Outpatient Attender: 03/22/2020 [facility] 11:47:00 AM [facility] BAdmitter: RODRIGO WALLACE BReferrer: RODRIGO Matute OutpatientOFFICE/OUT Attender: La Ward 03/22/2020 [facility] PATIENT VISIT, [facility] 11:47:00 AM EDT ([facility] 03/22/2020 [facility] 11:47:00 AM EDT Medical Center) Outpatient 03/22/2020 [facility] 12:00:00 AM EDT Medical Center Outpatient 03/15/2020 [facility] 12:24:00 PM EDT Medical Center Outpatient Attender: 03/15/2020 [facility] 12:19:00 PM [facility]T [facility] BAdmitter: RODRIGO WALLACE BReferrer: RODRIGO Matute OutpatientWell Attender: La Ward 03/15/2020 [facility] Visit, [facility] 12:19:00 PM EDT (Oskar patton Est,18-39years - 03/15/2020 Porfirio s 12:19:00 PM EDT Medical [place]) Attender: La Ward 03/15/2020 [facility] 09:05:00 AM EDT (Oskar t - 03/15/2020 [facility] 09:05:00 AM EDT Medical Center) Outpatient 03/15/2020 [facility] 12:00:00 AM EDT Medical Center Attender: La Ward 03/14/2020 [facility] 11:56:00 AM EDT ([facility] - 03/14/2020 [facility] 11:56:00 AM EDT Medical [place]) Outpatient Attender: Natasha 03/09/2020 [facility] CEASAR 07:01:00 AM EDT [facility] GEORGE MAdmitter: GEORGE Giordnaorer: GEORGE Demarco Outpatient Attender: [facility] 02/13/2020 [facility] 12:57:38 PM EDT ([facility] ) Patient admitted. Inpatient Attender: RAMONITA [facility]- 11/15/2019 03:16:00 S [facility]oul[facility] ALMAZ PM EDT - 02/16/2020 [facility] 10:48:00 PM EDT Patient discharged. Outpatient [facility] 11/15/2019 02:10:00 PM EDT - [address] [place] [address] 04:57:00 PM EDT Patient discharged. Outpatient Attender: [address] 10/13/2019 02:55:09 PM [facility] ([facility] EDT Collaborative) Patient admitted. Outpatient Attender: [address] 10/02/2019 07:07:41 AM [facility] ([facility] EDT Collaborative) Patient admitted. Outpatient Attender: GEORGE Kaur 09/29/2019 01:06:00 [facility] GEORGE EDT Center MAdmitter: GEORGE VAZQUEZ MReferrer: GEORGE Demarco Outpatient Attender: LAVARO 09/07/2019 01:27:00 R56.9 [place] HUMAYUNAdmitter: ANABAPTIST, PM EST [facility] HUMAYUNReferrer: Yvon VALENTE MD R56.9 Outpatient Attender: 09/03/2019 [facility] GEORGE 10:10:00 AM [facility] Medical [place] LC VAZQUEZ MAdmitter: GEORGE VAZQUEZ MReferrer: GEORGE Demarco Outpatient Attender: 08/05/2019 [facility] GEORGE 11:51:00 AM [facility] Medical [place] LC VAZQUEZ MAdmitter: GEORGE VAZQUEZ MReferrer: GEORGE Demarco Outpatient Attender: 07/10/2019 [facility] GEORGE 07:01:00 AM [facility] LC VAZQUEZ MAdmitter: GEORGE VAZQUEZ MReferrer: GEORGE Demarco Attender: La Ward 06/19/2019 [facility] 01:26:00 PM [facility] 01:26:00 PM EST Outpatient 06/18/2019 [facility] 03:27:00 PM EST Medical C enter Outpatient Attender: 06/18/2019 [facility] RODRIGO [facility] 10:31:00 AM [facility] Medica [facility] RODRIGO BAdmitter: RODRIGO WALLACE BReferrer: RODRIGO Matute OutpatientOFFICE Attender: La Ward 06/18/2019 [facility] MIL ([facility] 10:31:00 AM EST [facility] Medical VISIT, [facility] - 06/18/2019 Center) 10:31:00 AM EST Attender: La Ward 06/18/2019 [facility] ([facility] 09:07:00 AM [facility]nie [facility] - 06/18/2019 [place]) 09:07:00 AM EST Outpatient 06/18/2019 [facility] 12:00:00 AM EST Medical C enter Outpatient Attender: 06/15/2019 [facility] GEORGE 09:28:00 AM [facility] Medical [place] LC VAZQUEZ MAdmitter: GEORGE VAZQUEZ MReferrer: GEORGE Demarco Outpatient 06/10/2019 [facility] 10:29:00 AM EST Medical C enter Outpatient 06/10/2019 [facility] 12:00:00 AM EST Medical C enter Outpatient Attender: Natasha 05/18/2019 [facility] GEORGE 12:30:00 PM [facility] DOLORESEARLE MAdmitter: GEORGE VAZQUEZ MReferrer: GEORGE Demarco Outpatient Attender: 04/30/2019 R13.1 [place] KEILA REYNOSO 08:46:00 AM EDT [address] [place] [address].Admitter: [employer] KEILA REYNOSOReferrer: KEILA REYNOSO R13.10 Outpatient Attender: EDGARDO 04/30/2019 06:00:00 R13.10 [facility] KEILA DoddAdmitter: AM EDT Health C are KEILA REYNOSOReferrer: KEILA REYNOSO R13.10 Outpatient Attender: GEORGE Kaur 04/22/2019 07:01:00 AM [facility] MAdmitter: GEORGE VAZQUEZ MReferrer: GEORGE Demarco Outpatient Attender: GEORGE Kaur 03/26/2019 07:01:00 AM [facility] MAdmitter: GEORGE VAZQUEZ MReferrer: GEORGE Demarco Outpatient Attender: GEORGE ECHEVARRIA 04/20/2016 10:38:00 AM [facility] Immunizations Vaccine Date Status Description Data Source(s) New in 2011. IIV4 06/18/2019 completed Influenza, Injectable, NEXTGEN (Saint 12:00:00 AM EST Quadrivalent [facility]) Source: New Immunization Record As of March 1999, 06/18/2019 12:00:00 completed Hep B, adult , 3 NEXTGEN ([facility] a 2-dose hepatitis B AM EST dose [facility] schedule for [place]) adolescents (11-15 year olds) was FDA approved for [employer]'s Recombivax HB adult formulation. Use code 43 for the 2-dose. This code should be used for any use of standard adult formulation of hepatitis B vaccine. Source: New Immunization Record Medications Medication Brand Start Product Dose Route [facility] Indications Reaction Description Data Name Date Form Instructions Instructions Source(s) POLYETHYLEN Mirala .00 ORAL active polyeth ylene NEXTGEN E GLYCOL x 17 2019 {pack glycol 3350 (Sa int 3350 142 gram 12:00: et} 30616 MG Ronnie hs MG/ML Oral oral 00 [...] Tablet 25 MG Medical [Toprol] Toprol Extended [place]) XL 25 mg Release tablet,extended Oral Tabl et release [Toprol] Medication administered onsite Clozaril 50 Clozapine 50 03/15/2020 active clozapine 50 NEXTGEN mg tablet MG Oral Tablet 12:00:00 AM MG Oral Tablet (Saint EDT [Clozaril] [facility]) Mirtazapine Remeron 30 mg 03/15/2020 1.00 ORAL active mirtazapine 30 NEXTGEN 30 MG Oral tablet 12:00:00 AM {tabl MG O ral Tablet (Saint Tablet EDT et} [Remeron] [facility] [Remeron] Medical Remeron 30 mg [place] ) tablet Haldol 1 ML 03/15/2020 1.00 [...] 150 MG Oral EDT every day at [facility] Tablet night Medical trazodone 150 [place] ) mg tablet 24 HR Toprol XL 50 03/15/2020 completed 24 HR NEXTGEN metoprolol mg 12:00:00 AM metopro lol (Saint succinate 50 tablet,extende EDT de dios ccinate 50 Shirley MG Extended d release MG Exten ded Medical Release Oral Release Oral [place]) Tablet Tablet [Toprol] [Toprol] Toprol XL 50 mg tablet,extend ed release benztropine benztropine 1 03/15/2020 active take 1 tablet NEXTGEN mesylate 1 MG mg tablet 12:00:00 AM by oral route (Saint Oral Tablet EDT every hs prn [place] benztropine 1 as needed M edical mg tablet [place]) Omeprazole 40 omeprazole 40 03/15/2020 1.00 ORAL completed take 1 capsule NEXTGEN MG Delayed mg 12:00:00 AM {caps by ora l route (Saint Release Oral capsule,delaye EDT ule} ev merle avendano Shirley Capsule d release before a kalpana l Medical omeprazole 40 Center ) mg capsule,delay ed release Haldol 03/10/2020 100 INTR completed Haldol [facility] Decanoate - 12:00:00 AM Alanna Mancilla [facility]ate [facility] MG/1 ML EDT [...] [facility] 142 MG/ML Powder for EDT Powder [facility] Oral Solution Solution Solutio n [...] [facility] 142 MG/ML Powder for EST Powder fo r Hospital Oral Solution Solution Solutio n benztropine [...] [facility] 142 MG/ML Powder for EST Powder fo r Hospital Oral Solution Solution Solutio n 24 [...] ORAL Tablet EDT t MG ORAL Tablet [facility] POLYETHYLENE MiraLAX - 17 05/14/2019 1 ORAL completed MiraLAX - 17 Saint GLYCOL 3350 GM/1 Dose ORAL 12:00:00 AM Unit GM/1 Dose ORAL [facility] 142 MG/ML Powder for EDT Powder [facility] Oral Solution Solution Solutio n [...] 142 MG/ML Powder for EDT Powder fo [facility] Oral Solution Solution Solutio n [...] [facility] 142 MG/ML Powder for EDT Powder [facility] Oral Solution Solution Solutio n [...] ORAL [facility] Tablet Tablet EDT t Tablet [facility] Clozapine 100 clozapine 100 11/13/2018 completed take [...] [Lotrimin] cream [Lotrimin] Me dical Lotrimin AF [place]) (clotrimazole) 1 % topical cream POLYETHYLENE Miralax 17 gram 11/13/2018 1 ORAL completed polyethylene NEXTGEN GLYCOL 3350 142 oral powder 12:00:00 AM . glycol 3350 (Saint MG/ML Oral packet EDT 0 85313 MG Bryce ephs Solution 0 Powder for Medic al [Miralax] { Oral Solution C enter) Miralax 17 gram p [Miralax] oral powder a packet c k e t } Trazodone trazodone 150 08/14/2018 completed take 2 tablet NEXTGEN Hydrochloride mg tablet 12:00:00 AM by oral route (Saint 150 MG Oral EST every day at [facility] Tablet night Medical trazodone 150 [place] ) mg tablet 24 HR Bupropion Wellbutrin XL 08/14/2018 1 ORAL completed 24 HR NEXTGEN Hydrochloride 300 mg 24 hr 12:00:00 AM . bupropion ([facility] 300 MG Extended tablet, EST 0 hydroc hloride [place] Release Oral extended 0 300 [facility] { Extended Center ) [Wellbutrin] t Release Oral Wellbutrin XL a Tablet 300 mg 24 hr b [Wellbutrin] tablet, l extended e release t } benztropine benztropine 1 08/14/2018 1 ORAL completed take 1 tablet NEXTGEN mesylate 1 MG mg tablet 12:00:00 AM { by oral route (Saint Oral Tablet EST t 2 times every [facility] benztropine 1 a day Medica l mg tablet b [place]) l e t } Metoprolol metoprolol 08/14/2018 completed take 1 tablet NEXTGEN Tartrate 25 MG tartrate 25 mg 12:00:00 AM by mouth once (Saint Oral Tablet tablet EST a day with Shirley metoprolol food for Medic al tartrate 25 mg [facility]) tablet May cause drowsiness or dizziness. take at night Risperidone 2 Risperdal 2 mg 11/13/2017 1 ORAL completed risperidone 2 NEXTGEN MG Oral Tablet tablet 12:00:00 AM . M G Oral (Saint [Risperdal] EDT 0 Tablet Porfirio colón Risperdal 2 mg 0 [Risperdal ] Medical tablet { [place]) t a b l e t } Insurance Providers Payer name Policy type Policy ID Covered Covered green party's Policy P ned / Coverage green party ID relationship to Robledo Inf ormation type robledo [facility] MEDICAID [id number] SP [id number] [facility] [id number] 01 [id number] 000 [facility] MEDICAID [id number] SP [id number] [facility] MEDICAID [id number] SP [id number] [facility] [id number] self [id number] [facility] MEDICAID [id number] SP [id number] [facility] HEALTH [id number] SP [id number] CARE [facility] HEALTH [id number] SP [id number] CARE [facility] MEDICAID [id number] SP [id number] [facility] Health [id number] SP [id number] Options P SELF PAY 00 Self 00 MEDICAID INP [id number] Self [id number] [facility] [id number] Self [id number] HARMONIOUS BEACON [id number] SP [id number] HEALTH-MVP [facility] HEALTH [id number] SP [id number] CARE [facility] [id number] Self [id number] 000 HARMONIOUS HEALTHCARE SELF PAY 0 Self 0 MEDICAID OP [id number] Self [id number] [facility] [id number] Self [id number] 000 HARMONIOUS [facility] [id number] self [id number] MVP/HHP O [id number] 01 [id number] MVP/HHP O [id number] 01 [id number] 0 Problems, Conditions, and Diagnoses Code Display Name Description Problem Type Effective Data Sour ce(s) Dates J02.9 Acute pharyngitis, ACUTE PHARYNGITIS, Diagnosis 0 [facility] unspecified UNSPECIFIED 11:01:[address] EDT D64.9 Anemia, unspecified ANEMIA, UNSPECIFIED Diagnosis 020 [facility] 11:47:00 AM Medical Cente r EDT Z00.00 Encounter for ENCNTR FOR GENERAL Diagnosis 03/15/2020 Sixto Watson general adult ADULT MEDICAL EXAM 12:19:00 PM [facility] medical examination W/O ABNORMAL EDT without abnormal FINDINGS findings 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, HALLUCINOGEN ABUSE, Diagnosis Praveen Watson uncomplicated UNCOMPLICATED 07:01:00 AM Medical Center EDT F10.20 Alcohol dependence, ALCOHOL DEPENDENCE, Diagnosis [facility] uncomplicated UNCOMPLICATED 07:01:00 AM Medical Center EDT F33.3 Major depressive MAJOR DEPRESSV Diagnosis 03/09/2020 Oskar abdi Shirley disorder, DISORDER, 07:01:00 AM Medical Cente r recurrent, severe RECURRENT, SEVERE W EDT with psychotic PSYCH SYMPTOMS symptoms F25.1 Schizoaffective SCHIZOAFFECTIVE Diagnosis 03/09/2020 Oskar Watson disorder, DISORDER, 07:01:00 AM Medical Cente r depressive type DEPRESSIVE TYPE EDT R56.9 Unspecified UNSPECIFIED Diagnosis 09/07/2019 [place] convulsions CONVULSIONS 01:27:00 PM [facility] [employer] [facility] [employer] Z23 Encounter for ENCOUNTER FOR Diagnosis 06/18/2019 [facility] Maritza rosales immunization IMMUNIZATION 10:31:00 AM Medical C enter EST F20.9 Schizophrenia, SCHIZOPHRENIA, Diagnosis 04/30/2019 [place] sonali unspecified UNSPECIFIED 08:46:00 AM [facility] EDT Care [employer] F41.8 Other specified OTHER SPECIFIED Diagnosis 04/30/2019 [place] anxiety disorders ANXIETY DISORDERS 08:46:00 AM [facility] EDT Care [employer] K22.8 Other specified OTHER SPECIFIED Diagnosis 04/30/2019 [place] diseases of DISEASES OF 08:46:00 AM [facility] esophagus ESOPHAGUS EDT Care [employer] K44.9 Diaphragmatic DIAPHRAGMATIC Diagnosis 04/30/2019 [facility] hernia without HERNIA WITHOUT 08:46:00 AM [facility] obstruction or OBSTRUCTION OR EDT Care gangrene GANGRENE [employer] R13.10 Dysphagia, DYSPHAGIA, Diagnosis 04/30/2019 [place] unspecified UNSPECIFIED 08:46:00 AM [facility] [employer] Surgeries/Procedures Procedure Description Date Indications Data Source(s) OFFICE/OUTPATIENT VISIT, 03/22/2020 NEX TGEN ([facility] EST 12:00:00 AM EDT [facility] 03/22/2020 [place]) 12:00:00 AM EDT Well Visit, Est,18-39years 03/15/2020 N EXTGEN ([facility] 12:00:00 AM EDT [facility] 03/15/2020 [place]) 12:00:00 AM EDT ELECTROCARDIOGRAM, 03/15/2020 NEXTGEN ( [facility] COMPLETE 12:00:00 AM EDT [facility] 03/15/2020 [place]) 12:00:00 AM EDT Vision Screening - 0 - 21 03/15/2020 NE XTGEN ([facility] y/o 12:00:00 AM EDT [facility] 03/15/2020 [place]) 12:00:00 AM EDT PURE TONE HEARING TEST, 03/15/2020 NEXT GEN ([facility] AIR 12:00:00 AM EDT [facility] 03/15/2020 [place]) 12:00:00 AM EDT ROUTINE VENIPUNCTURE 03/15/2020 NEXTGEN ([facility] 12:00:00 AM EDT [facility] 03/15/2020 [place]) 12:00:00 AM EDT OFFICE/OUTPATIENT VISIT, 06/18/2019 NEX TGEN ([facility] EST 12:00:00 AM EST [facility] - 06/18/2019 [place]) 12:00:00 AM EST Influenza, Injectable, 3 06/18/2019 NEX TGEN ([facility] Yrs Or Older 12:00:00 AM EST [facility] - 06/18/2019 [place]) 12:00:00 AM EST Immunization 06/18/2019 NEXTGEN ([facility] Administration 12:00:00 AM EST [facility] dical - 06/18/2019 [place]) 12:00:00 AM EST HEP B VACCINE, ADULT, IM 06/18/2019 NEX TGEN ([facility] 12:00:00 AM [facility] 06/18/2019 [place]) 12:00:00 AM EST Immunization 06/18/2019 NEXTGEN ([facility] Administration 12:00:00 AM EST [facility] dical - 06/18/2019 [place]) 12:00:00 AM EST Results ID Date Data Source [id number] 05/10/2020 12:00:00 PM EDT [facility] 400 Name Value Range Interpretation Description Data Sup porting Code Source(s) Document(s ) UNK <item><caro centermigel Watson styleCode="Mariusz Medical ld">Culture Center Status </content>
<table><tbo dy><tr><td>Sp ecimen Number:</td>< td>[id number]< /td></tr><tr> <td>Sample Collection Date/Time: </td><td>04/15 12:00 PM</td></tr>< tr><td>Specim en Source:</td>< td>THROAT</td ></tr><tr><td >Culture Report:</td>< td>Culture in progress </td></tr><tr ><td>Throat-N ose Culture:</td> <td>Collectio n Plate Date: 05/10/2020 17:39 </td></tr><tr ><td>Culture Status:</td>< td>Preliminar y </td></tr></t body></table> </item> Streptococcus NEGATIVE <item><[facility] travon abdi Watson [Presence] in styleCode="Mariusz Medical Unspecified ld">Rapid Center specimen by Strep A Immunoassay </content>
<table><tbo dy><tr><td>Sp ecimen Number:</td>< td>[id number]< /td></tr><tr> <td>Sample Collection Date/Time: </td><td>04/15 12:00 PM</td></tr>< tr><td>Specim en Source:</td>< td>THROAT</td ></tr><tr><td >Rapid Strep A:</td><td>NE GATIVE </td></tr></t body></table> </item> UNK <item><[facility] styleCode="Mariusz Medical ld">Culture Center Report </content>
<table><tbo dy><tr><td>Sp ecimen Number:</td>< td>[id number]< /td></tr><tr> <td>Sample Collection Date/Time: </td><td>04/15 12:00 PM</td></tr>< tr><td>Specim en Source:</td>< td>THROAT</td ></tr><tr><td >Throat-Nose Culture:</td> <td>Collectio n Plate Date: 05/10/2020 17:39 </td></tr><tr ><td>Culture Status:</td>< td>Preliminar y </td></tr><tr ><td>Culture Report:</td>< td>Culture in progress </td></tr></t body></table> </item> ID Date Data Source [id number] 05/02/2020 12:13:00 PM EDT [facility] Name Value Range Interpretation Description Data Sup porting Code Source(s) Document(s ) SARS [facility] coronavirus 2 RNA [facility] lab [facility] and reported by [facility]. ID Date Data Source [id number] 04/25/2020 09:55:00 AM EDT [facility] Name Value Range Interpretation Description Data Sup porting Code Source(s) Document(s ) SARS [facility] coronavirus 2 RNA This lab was ordered by [facility] and reported by [facility]. ID Date Data Source [id number] 04/17/2020 10:35:00 AM EDT [facility] Name Value Range Interpretation Description Data Sup porting Code Source(s) Document(s ) SARS [facility] coronavirus 2 RNA This lab was ordered by [facility] and reported by [facility]. ID Date Data Source [id number] 04/11/2020 09:01:00 AM EDT [facility] Name Value Range Interpretation Description Data Sup porting Code Source(s) Document(s ) SARS [facility] coronavirus 2 RNA This lab was [facility] and reported by [facility]. ID Date Data Source [id number] 04/04/2020 09:28:00 AM EDT [facility] Name Value Range Interpretation Description Data Sup porting Code Source(s) Document(s ) SARS [facility] coronavirus 2 RNA This lab [facility] iliana [facility] and reported by [facility]. ID Date Data Source [id number] 03/28/2020 08:58:00 AM EDT [facility] Name Value Range Interpretation Description Data Sup porting Code Source(s) Document(s ) SARS [facility] coronavirus 2 RNA This lab was ordered by [facility] and reported by [facility]. ID Date Data Source [id number] 03/21/2020 09:08:00 AM EDT [facility] Name Value Range Interpretation Description Data Sup porting Code Source(s) Document(s ) SARS [facility] coronavirus 2 RNA [facility] lab [facility] and reported by [facility]. ID Date Data Source [id number] 03/15/2020 01:12:00 PM EDT [facility] 0 Name Value Range Interpretation Description [...] 1.015-1.02 <content [facility] gravity of 5 styleCode="Addis Watson Urine by Test d">Urine Medical strip Specific Center [place] </content>1.01 5 <content styleCode="Shana lics"> (1.015-1.025 [...] Data Source Liver 03/15/2020 01:12:00 PM EDT [facility] [id number] Name Value Range Interpretation Description Data Sup [...] s"> (0.2-1.3 MG/DL)</content> ID Date Data Source [id number] 03/15/2020 01:12:00 PM EDT [facility] Name Value Range Interpretation Description Data Sup porting Code Source(s) Document(s ) Triglyceride < 150 <content Saint [Mass/volume] in styleCode="Addis Watson Serum or Plasma d">Triglycerid [facility] </content>105 MG/DL<content styleCode="Shana lics"> (< 150 MG/DL)</conten t> Cholesterol -<200 <content [facility] [Mass/volume] in styleCode="Addis Monroys Serum or Plasma d">Cholesterol Medical </content>166 Center MG/DL<content styleCode="Shana lics"> (-<200 MG/DL)</conten t> UNK < 100 <content Saint styleCode="Addis Monroys d">LDL-Cholest [facility] </content>92 MG/DL<content styleCode="Shana lics"> (< 100 MG/DL)</conten t> UNK > 60 Below low normal <content Saint styleCode="Addis Shirley d">HDL- [facility] </content>53 MG/DL L<content styleCode="Shana lics"> (> 60 MG/DL)</conten t> ID Date Data Source [id number] 03/15/2020 01:12:00 PM EDT [facility] Name Value Range Interpretation Description [...] (0.465-4.68 MIU/L)</conten t> ID Date Data Source HematologyRou.[id number] 03/15/2020 01:12:00 PM EDT [facility] 0400 Name Value Range Interpretation Description [...] (< 1 %)</content> ID Date Data Source GFR(Creatinine).[id number] 03/15/2020 01:12:00 PM EDT [facility] 0-0400 Name Value Range Interpretation Code Description Data Petra rce(s) Supporting Document(s ) UNK > 60 <content [facility] styleCode="Bold"> Medical Cent er EGFR </content>100 GFR<content styleCode="Italic s"> (> 60 GFR)</content> ID Date Data Source ChemistrySpecia.[id number] 03/15/2020 01:12:00 PM EDT [facility] 0-0400 Name Value Range Interpretation Description Data Sup porting Code Source(s) Document(s ) Cobalamin 239-931 Above high normal <content Saint (Vitamin B12) styleCode="Addis Shirley [Mass/volume] d">Vitamin B12 Medical in Serum or </content>> Center Plasma 1000 PG/ML H<content styleCode="Shana lics"> (239-931 PG/ML)</conten t> ID Date Data Source [id number] 03/15/2020 01:12:00 PM EDT [facility] -0400 Name Value Range Interpretation Description Data Sup porting Code Source(s) Document(s ) UNK >= 1.0 <content [facility] styleCode="Bold Medical ">AG Ratio Center </content>1.8 <content styleCode="Ital ics"> (>= 1.0 )</content> UNK 2.3-3.5 <content [facility] styleCode="Bold Medical ">Globulin Center </content>2.6 G/DL<content styleCode="Ital ics"> (2.3-3.5 G/DL)</content> Protein 6.3-8.2 <content [facility] [Mass/volum styleCode="Bold Medical e] in Serum ">Total Protein Center or Plasma </content>7.3 G/DL<content styleCode="Ital ics"> (6.3-8.2 G/DL)</content> ID Date Data Source [facility].[id number] 03/15/2020 01:12:00 PM EDT [facility] Name Value Range Interpretation Description Data Sup porting Code Source(s) Document(s ) Potassium 3.5-5.3 <content Saint [Moles/volume] in styleCode="Bold"> [facility] Serum or Plasma Potassium Medical </content>4.0 Center MEQ/L<content styleCode="Italic s"> (3.5-5.3 MEQ/L)</content> Sodium 137-145 <content [facility] [Moles/volume] in styleCode="Bold"> [facility] Serum or Plasma Sodium Medical </content>140 Center MEQ/L<content styleCode="Italic s"> (137-145 MEQ/L)</content> UNK 9-20 <content [facility] styleCode="Bold"> Shirley BUN </content>9 Medical MG/DL<content Center styleCode="Italic s"> (9-20 MG/DL)</content> Chloride 98-107 <content Saint [Moles/volume] in styleCode="Bold"> [facility] Serum or Plasma Chloride Medical [...] s"> (3.5-5.0 G/DL)</content> ID Date Data Source [id number] 03/14/2020 09:02:00 AM EDT [facility] Name Value Range Interpretation Description Data Sup porting Code Source(s) Document(s ) SARS [facility] coronavirus 2 RNA This lab was [facility] by [facility] and reported by [facility]. ID Date Data Source [id number] 03/08/2020 09:07:00 AM EDT [facility] Name Value Range Interpretation Description Data Sup porting Code Source(s) Document(s ) SARS [facility] coronavirus 2 RNA This lab was ordered by [facility] and reported by [facility]. ID Date Data Source [id number] 02/29/2020 10:30:00 AM EDT [facility] Name Value Range Interpretation Description Data Sup porting Code Source(s) Document(s ) SARS [facility] coronavirus 2 RNA This lab was ordered by [facility] and reported by [facility]. ID Date Data Source [id number] 02/25/2020 11:14:00 AM EDT [facility] Name Value Range Interpretation Description Data Sup porting Code Source(s) Document(s ) SARS [facility] coronavirus 2 RNA This lab was ordered by [facility] and reported by [facility]. ID Date Data Source [id number] 02/22/2020 11:39:00 AM EDT [facility] Name Value Range Interpretation Description Data Sup porting Code Source(s) Document(s ) SARS [facility] coronavirus 2 RNA [facility] lab [facility] and reported by [facility]. ID Date Data Source [id number] 02/18/2020 09:43:00 AM EDT [facility] Name Value Range Interpretation Description Data Sup porting Code Source(s) Document(s ) SARS [facility] coronavirus 2 RNA [facility] lab was [facility] and reported by [facility]. ID Date Data Source [id number] 12/25/2019 12:47:00 PM EDT [facility] Name Value Range Interpretation Code Description Data Petra rce(s) Supporting Document(s ) COV2 [facility] This lab was ordered by [facility] and reported by Jongla Ibeth Moffett. ID Date Data Source [id number] 11/16/2019 10:40:00 AM EDT [facility] Name Value Range Interpretation Code Description Data Petra rce(s) Supporting Document(s ) COV2 [facility] This lab was ordered by [facility] and reported by [facility]. Procedure Social History Code Duration Value Status Description Data Source(s ) Caffeine Use 04/12/2020 completed tea, 1 cup NEXTGEN (Sixt[facility] nt Details 12:00:00 AM T [facility]) Smoking 04/12/2020 Unknown if completed Unknown if ever NEXTGEN ( [facility] 12:00:00 AM EDT ever smoked smoked [facility]) Alcohol Use 03/22/2020 completed vodka 1 pint NEXTGEN ( int Details 12:00:00 AM EDT daily [facility]) Caffeine Use 06/18/2019 completed coffee, > 6 cups NEXTGE N ([facility] Details 12:00:00 AM EST [facility]) Vital Signs ID Date Data Source UNK Name Value Range Interpretation Code Description Data Source(s) Oxygen 98 % 98 % NEXTGEN saturation in ([facility]) Body mass index 21.47 kg/m2 21.47 kg/m2 NEXTGEN (BMI) [Ratio] ([facility]) Body temperature 36.67 Sugar 36.67 [facility] Heart rate 102 /min 102 /min [facility] Diastolic blood 78 mm[Hg] 78 mm[Hg] [facility] ([facility]) Systolic blood 121 mm[Hg] 121 mm[Hg] [facility] pressure ([facility]) Body weight 60.328 kg 60.328 [facility] Body height 167.64 cm 167.64 cm [facility] Oxygen 98 % 98 % NEXTGEN saturation in ([facility]) Body mass index 21.63 kg/m2 21.63 kg/m2 NEXTGEN (BMI) [Ratio] ([facility]) Body temperature 36.78 Sugar 36.78 Sugar [facility] Heart rate 90 /min 90 /min [facility] ([facility]) Diastolic blood 76 mm[Hg] 76 mm[Hg] NEXTGEN pressure ([facility]) Systolic blood 125 mm[Hg] 125 mm[Hg] [facility] Body weight 60.781 kg 60.781 [facility] Body height 167.64 cm 167.64 cm [facility] ([facility]) Diastolic blood 72 mmHg 72 mmHg [facility] Systolic blood 113 mmHg 113 mmHg [facility] Heart rate 87 bpm 87 bpm [facility] Diastolic blood 78 mmHg 78 mmHg [facility] Systolic blood 115 mmHg 115 mmHg [facility] Respiratory rate 18 bpm 18 bpm [facility] Heart rate 81 bpm 81 bpm [facility] Body temperature 97.8 Fahrenheit 97.8 Fahrenh t [facility] Body temperature 97.4 Fahrenheit 97.4 hrenh t [facility] Diastolic blood 76 mmHg 76 mmHg [facility] Systolic blood 111 mmHg 111 mmHg [facility] Respiratory rate 16 bpm 16 bpm [facility] Heart rate 84 bpm 84 bpm [facility] Diastolic blood 68 mmHg 68 mmHg [facility] Systolic blood 110 mmHg 110 mmHg [facility] Respiratory rate 22 bpm 22 bpm [facility] Heart rate 73 bpm 73 bpm [facility] Body temperature 96.4 Fahrenheit 96.4 Fahrenh t [facility] Diastolic blood 68 mmHg 68 mmHg [facility] Systolic blood 110 mmHg 110 mmHg [facility] Heart rate 73 bpm 73 bpm [facility] Diastolic blood 73 mmHg 73 mmHg [facility] Systolic blood 105 mmHg 105 mmHg [facility] Heart rate 79 bpm 79 bpm [facility] Diastolic blood 80 mmHg 80 mmHg [facility] Systolic blood 113 mmHg 113 mmHg [facility] Deprecated 98 % 98 % [facility] saturation in Hospital Capillary blood by Oximetry Respiratory rate 16 bpm 16 bpm [facility] Heart rate 77 bpm 77 bpm [facility] Body temperature 98.6 Fahrenheit 98.6 Fahrenhei t [facility] Diastolic blood 66 mmHg 66 mmHg [facility] Systolic blood 103 mmHg 103 mmHg [facility] Heart rate 87 bpm 87 bpm [facility] Body weight 135 lbs 135 lbs [facility] Diastolic blood 73 mmHg 73 mmHg [facility] Systolic blood 109 mmHg 109 mmHg [facility] Deprecated 99 % 99 % [facility] saturation in Hospital Capillary blood by Oximetry Respiratory rate 18 bpm 18 bpm [facility] Heart rate 79 bpm 79 bpm [facility] Body temperature 97.8 Fahrenheit 97.8 Fahrenhei t [facility] Diastolic blood 76 mmHg 76 mmHg [facility] Systolic blood 122 mmHg 122 mmHg [facility] Respiratory rate 18 bpm 18 bpm [facility] Heart rate 89 bpm 89 bpm [facility] Body temperature 97.9 Fahrenheit 97.9 Fahrenhei t [facility] Diastolic blood 78 mmHg 78 mmHg [facility] Systolic blood 126 mmHg 126 mmHg [facility] Respiratory rate 18 bpm 18 bpm [facility] Heart rate 86 bpm 86 bpm [facility] Body temperature 97.9 Fahrenheit 97.9 Fahrenhei t [facility] Respiratory rate 18 bpm 18 bpm [facility] Body temperature 97.8 Fahrenheit 97.8 Fahrenh t [facility] Diastolic blood 84 mmHg 84 mmHg [facility] Systolic blood 118 mmHg 118 mmHg [facility] Heart rate 79 bpm 79 bpm [facility] Body temperature 97.4 Fahrenheit 97.4 Fahrenhei t [facility] Diastolic blood 74 mmHg 74 mmHg [facility] Systolic blood 110 mmHg 110 mmHg [facility] Respiratory rate 18 bpm 18 bpm [facility] Heart rate 76 bpm 76 bpm [facility] Respiratory rate 18 bpm 18 bpm [facility] Body temperature 97.3 Fahrenheit 97.3 Fahrenhei t [facility] Diastolic blood 74 mmHg 74 mmHg [facility] Systolic blood 104 mmHg 104 mmHg [facility] Heart rate 81 bpm 81 bpm [facility] Diastolic blood 72 mmHg 72 mmHg [facility] Systolic blood 109 mmHg 109 mmHg [facility] Respiratory rate 18 bpm 18 bpm [facility] Heart rate 78 bpm 78 bpm [facility] Body temperature 98.0 Fahrenheit 98.0 Fahrenhei t [facility] Diastolic blood 71 mmHg 71 mmHg [facility] Systolic blood 98 mmHg 98 mmHg [facility] Heart rate 90 bpm 90 bpm [facility] Body weight 134 lbs 134 lbs [facility] Diastolic blood 72 mmHg 72 mmHg [facility] Systolic blood 102 mmHg 102 mmHg [facility] Deprecated 96 % 96 % [facility] saturation in Hospital Capillary blood by Oximetry Respiratory rate 16 bpm 16 bpm [facility] Heart rate 85 bpm 85 bpm [facility] Body temperature 97.5 Fahrenheit 97.5 Fahrenhei t [facility] Diastolic blood 77 mmHg 77 mmHg [facility] Systolic blood 99 mmHg 99 mmHg [facility] Respiratory rate 18 bpm 18 bpm [facility] Heart rate 81 bpm 81 bpm [facility] Body temperature 96.3 Fahrenheit 96.3 Fahrenhei t [facility] Diastolic blood 67 mmHg 67 mmHg [facility] Systolic blood 101 mmHg 101 mmHg [facility] Respiratory rate 18 bpm 18 bpm [facility] Heart rate 76 bpm 76 bpm [facility] Diastolic blood 67 mmHg 67 mmHg [facility] Systolic blood 110 mmHg 110 mmHg [facility] Respiratory rate 18 bpm 18 bpm [facility] Heart rate 72 bpm 72 bpm [facility] Body temperature 96.5 Fahrenheit 96.5 Fahrenhei t [facility] Diastolic blood 74 mmHg 74 mmHg [facility] Systolic blood 101 mmHg 101 mmHg [facility] Heart rate 82 bpm 82 bpm [facility] Diastolic blood 73 mmHg 73 mmHg [facility] Systolic blood 108 mmHg 108 mmHg [facility] Respiratory rate 18 bpm 18 bpm [facility] Heart rate 75 bpm 75 bpm [facility] Body temperature 98.0 Fahrenheit 98.0 Fahrenhei t [facility] Diastolic blood 67 mmHg 67 mmHg [facility] Systolic blood 107 mmHg 107 mmHg [facility] Heart rate 81 bpm 81 bpm [facility] Diastolic blood 67 mmHg 67 mmHg [facility] Systolic blood 104 mmHg 104 mmHg [facility] Respiratory rate 18 bpm 18 bpm [facility] Heart rate 76 bpm 76 bpm [facility] Body temperature 96.3 Fahrenheit 96.3 Fahrenhei t [facility] Diastolic blood 70 mmHg 70 mmHg [facility] Systolic blood 111 mmHg 111 mmHg [facility] Heart rate 88 bpm 88 bpm [facility] Diastolic blood 72 mmHg 72 mmHg [facility] Systolic blood 106 mmHg 106 mmHg [facility] Respiratory rate 18 bpm 18 bpm [facility] Heart rate 83 bpm 83 bpm [facility] Body temperature 97.7 Fahrenheit 97.7 Fahrenhei t [facility] Diastolic blood 76 mmHg 76 mmHg [facility] Systolic blood 114 mmHg 114 mmHg [facility] Heart rate 78 bpm 78 bpm [facility] Diastolic blood 71 mmHg 71 mmHg [facility] Systolic blood 111 mmHg 111 mmHg [facility] Respiratory rate 22 bpm 22 bpm [facility] Heart rate 74 bpm 74 bpm [facility] Body temperature 98.1 Fahrenheit 98.1 Fahrenhei t [facility] Diastolic blood 65 mmHg 65 mmHg [facility] Systolic blood 90 mmHg 90 mmHg [facility] Heart rate 87 bpm 87 bpm [facility] Diastolic blood 64 mmHg 64 mmHg [facility] Systolic blood 97 mmHg 97 mmHg [facility] Respiratory rate 18 bpm 18 bpm [facility] Heart rate 83 bpm 83 bpm [facility] Body temperature 96.8 Fahrenheit 96.8 Fahrenhei t [facility] Diastolic blood 72 mmHg 72 mmHg [facility] Systolic blood 103 mmHg 103 mmHg [facility] Heart rate 75 bpm 75 bpm [facility] Diastolic blood 71 mmHg 71 mmHg [facility] Systolic blood 103 mmHg 103 mmHg [facility] Respiratory rate 18 bpm 18 bpm [facility] Heart rate 75 bpm 75 bpm [facility] Body temperature 97.6 Fahrenheit 97.6 Fahrenhei t [facility] Diastolic blood 67 mmHg 67 mmHg [facility] Systolic blood 97 mmHg 97 mmHg [facility] Respiratory rate 18 bpm 18 bpm [facility] Heart rate 83 bpm 83 bpm [facility] Diastolic blood 65 mmHg 65 mmHg [facility] Systolic blood 100 mmHg 100 mmHg [facility] Respiratory rate 18 bpm 18 bpm [facility] Heart rate 78 bpm 78 bpm [facility] Body temperature 96.8 Fahrenheit 96.8 Fahrenhei t [facility] Diastolic blood 62 mmHg 62 mmHg [facility] Systolic blood 88 mmHg 88 mmHg [facility] Heart rate 88 bpm 88 bpm [facility] Diastolic blood 58 mmHg 58 mmHg [facility] Systolic blood 94 mmHg 94 mmHg [facility] Deprecated 97 % 97 % [facility] saturation in Hospital Capillary blood by Oximetry Respiratory rate 18 bpm 18 bpm [facility] Heart rate 81 bpm 81 bpm [facility] Body temperature 97.1 Fahrenheit 97.1 Fahrenhei t [facility] Diastolic blood 67 mmHg 67 mmHg [facility] Systolic blood 102 mmHg 102 mmHg [facility] Respiratory rate 20 bpm 20 bpm [facility] Heart rate 74 bpm 74 bpm [facility] Body temperature 98.0 Fahrenheit 98.0 Fahrenhei t [facility] Diastolic blood 67 mmHg 67 mmHg [facility] Systolic blood 102 mmHg 102 mmHg [facility] Respiratory rate 20 bpm 20 bpm [facility] Heart rate 79 bpm 79 bpm [facility] Body temperature 98.0 Fahrenheit 98.0 Fahrenhei t [facility] Body temperature 98.8 Fahrenheit 98.8 Fahrenhei t [facility] Diastolic blood 59 mmHg 59 mmHg [facility] Systolic blood 94 mmHg 94 mmHg [facility] Respiratory rate 18 bpm 18 bpm [facility] Heart rate 84 bpm 84 bpm [facility] Diastolic blood 70 mmHg 70 mmHg [facility] Systolic blood 106 mmHg 106 mmHg [facility] Heart rate 75 bpm 75 bpm [facility] Diastolic blood 68 mmHg 68 mmHg [facility] Systolic blood 107 mmHg 107 mmHg [facility] Respiratory rate 18 bpm 18 bpm [facility] Heart rate 73 bpm 73 bpm [facility] Body temperature 98.0 Fahrenheit 98.0 Fahrenhei t [facility] Systolic blood 117 mmHg 117 mmHg [facility] Heart rate 82 bpm 82 bpm [facility] Diastolic blood 73 mmHg 73 mmHg [facility] Diastolic blood 67 mmHg 67 mmHg [facility] Systolic blood 109 mmHg 109 mmHg [facility] Respiratory rate 18 bpm 18 bpm [facility] Heart rate 76 bpm 76 bpm [facility] Body temperature 98.4 Fahrenheit 98.4 Fahrenhei t [facility] Respiratory rate 18 bpm 18 bpm [facility] Body temperature 98.0 Fahrenheit 98.0 Fahrenhei t [facility] Diastolic blood 73 mmHg 73 mmHg [facility] Systolic blood 108 mmHg 108 mmHg [facility] Heart rate 74 bpm 74 bpm [facility] Diastolic blood 72 mmHg 72 mmHg [facility] Systolic blood 109 mmHg 109 mmHg [facility] Respiratory rate 18 bpm 18 bpm [facility] Heart rate 76 bpm 76 bpm [facility] Body temperature 98.0 Fahrenheit 98.0 Fahrenhei t [facility] Diastolic blood 75 mmHg 75 mmHg [facility] Systolic blood 108 mmHg 108 mmHg [facility] Heart rate 82 bpm 82 bpm [facility] Diastolic blood 72 mmHg 72 mmHg [facility] Systolic blood 109 mmHg 109 mmHg [facility] Respiratory rate 18 bpm 18 bpm [facility] Heart rate 79 bpm 79 bpm [facility] Body temperature 98.3 Fahrenheit 98.3 Fahrenhei t [facility] Diastolic blood 69 mmHg 69 mmHg [facility] Systolic blood 101 mmHg 101 mmHg [facility] Heart rate 72 bpm 72 bpm [facility] Diastolic blood 71 mmHg 71 mmHg [facility] Systolic blood 108 mmHg 108 mmHg [facility] Respiratory rate 18 bpm 18 bpm [facility] Heart rate 70 bpm 70 bpm [facility] Body temperature 97.7 Fahrenheit 97.7 Fahrenhei t [facility] Diastolic blood 70 mmHg 70 mmHg [facility] Systolic blood 107 mmHg 107 mmHg [facility] Heart rate 82 bpm 82 bpm [facility] Diastolic blood 79 mmHg 79 mmHg [facility] Systolic blood 102 mmHg 102 mmHg [facility] Respiratory rate 18 bpm 18 bpm [facility] Heart rate 79 bpm 79 bpm [facility] Body temperature 97.5 Fahrenheit 97.5 Fahrenhei t [facility] Diastolic blood 71 mmHg 71 mmHg [facility] Systolic blood 116 mmHg 116 mmHg [facility] Respiratory rate 18 bpm 18 bpm [facility] Heart rate 79 bpm 79 bpm [facility] Diastolic blood 75 mmHg 75 mmHg [facility] Systolic blood 115 mmHg 115 mmHg [facility] Respiratory rate 18 bpm 18 bpm [facility] Heart rate 76 bpm 76 bpm [facility] Body temperature 98.2 Fahrenheit 98.2 Fahrenhei t [facility] Diastolic blood 88 mmHg 88 mmHg [facility] Systolic blood 146 mmHg 146 mmHg [facility] Respiratory rate 18 bpm 18 bpm [facility] Heart rate 67 bpm 67 bpm [facility] Body temperature 97.5 Fahrenheit 97.5 Fahrenhei t [facility] Diastolic blood 69 mmHg 69 mmHg [facility] Systolic blood 107 mmHg 107 mmHg [facility] Respiratory rate 18 bpm 18 bpm [facility] Heart rate 81 bpm 81 bpm [facility] Body weight 124 lbs 124 lbs [facility] Diastolic blood 71 mmHg 71 mmHg [facility] Systolic blood 105 mmHg 105 mmHg [facility] Respiratory rate 18 bpm 18 bpm [facility] Heart rate 78 bpm 78 bpm [facility] Body temperature 99.1 Fahrenheit 99.1 Fahrenhei t [facility] Diastolic blood 71 mmHg 71 mmHg [facility] Systolic blood 126 mmHg 126 mmHg [facility] Heart rate 71 bpm 71 bpm [facility] Diastolic blood 76 mmHg 76 mmHg [facility] Systolic blood 108 mmHg 108 mmHg [facility] Deprecated 97 % 97 % [facility] saturation in [facility] Capillary blood by Oximetry Respiratory rate 18 bpm 18 bpm [facility] Heart rate 72 bpm 72 bpm [facility] Body temperature 97.8 Fahrenheit 97.8 Fahrenhei t [facility] Diastolic blood 67 mmHg 67 mmHg [facility] Systolic blood 103 mmHg 103 mmHg [facility] Heart rate 77 bpm 77 bpm [facility] Diastolic blood 76 mmHg 76 mmHg [facility] Systolic blood 109 mmHg 109 mmHg [facility] Respiratory rate 18 bpm 18 bpm [facility] Heart rate 78 bpm 78 bpm [facility] Body temperature 98.2 Fahrenheit 98.2 Fahrenhei t [facility] Respiratory rate 18 bpm 18 bpm [facility] Body temperature 98.5 Fahrenheit 98.5 Fahrenhei t [facility] Diastolic blood 69 mmHg 69 mmHg [facility] Systolic blood 97 mmHg 97 mmHg [facility] Heart rate 75 bpm 75 bpm [facility] Diastolic blood 70 mmHg 70 mmHg [facility] Systolic blood 102 mmHg 102 mmHg [facility] Respiratory rate 18 bpm 18 bpm [facility] Heart rate 79 bpm 79 bpm [facility] Diastolic blood 76 mmHg 76 mmHg [facility] Systolic blood 112 mmHg 112 mmHg [facility] Respiratory rate 18 bpm 18 bpm [facility] Heart rate 71 bpm 71 bpm [facility] Body temperature 98.2 Fahrenheit 98.2 Fahrenhei t [facility] Diastolic blood 71 mmHg 71 mmHg [facility] Systolic blood 109 mmHg 109 mmHg [facility] Respiratory rate 18 bpm 18 bpm [facility] Heart rate 81 bpm 81 bpm [facility] Diastolic blood 77 mmHg 77 mmHg [facility] Systolic blood 114 mmHg 114 mmHg [facility] Respiratory rate 18 bpm 18 bpm [facility] Heart rate 81 bpm 81 bpm [facility] Body temperature 97.9 Fahrenheit 97.9 Fahrenhei t [facility] Diastolic blood 76 mmHg 76 mmHg [facility] Systolic blood 115 mmHg 115 mmHg [facility] Respiratory rate 18 bpm 18 bpm [facility] Heart rate 73 bpm 73 bpm [facility] Body temperature 96.4 Fahrenheit 96.4 Fahrenhei t [facility] Diastolic blood 88 mmHg 88 mmHg [facility] Systolic blood 129 mmHg 129 mmHg [facility] Respiratory rate 18 bpm 18 bpm [facility] Heart rate 73 bpm 73 bpm [facility] Body temperature 96.4 Fahrenheit 96.4 Fahrenhei t [facility] Diastolic blood 76 mmHg 76 mmHg [facility] Systolic blood 114 mmHg 114 mmHg [facility] Heart rate 77 bpm 77 bpm [facility] Diastolic blood 71 mmHg 71 mmHg [facility] Systolic blood 108 mmHg 108 mmHg [facility] Respiratory rate 18 bpm 18 bpm [facility] Heart rate 77 bpm 77 bpm [facility] Body temperature 97.1 Fahrenheit 97.1 Fahrenhei t [facility] Diastolic blood 68 mmHg 68 mmHg [facility] Systolic blood 105 mmHg 105 mmHg [facility] Deprecated 99 % 99 % [facility] saturation in Hospital Capillary blood by Oximetry Respiratory rate 18 bpm 18 bpm [facility] Heart rate 80 bpm 80 bpm [facility] Diastolic blood 71 mmHg 71 mmHg [facility] Systolic blood 99 mmHg 99 mmHg [facility] Deprecated 99 % 99 % [facility] Oxygen [facility] saturation in Hospital Capillary blood by Oximetry Respiratory rate 18 bpm 18 bpm [facility] Heart rate 78 bpm 78 bpm [facility] Systolic blood 107 mmHg 107 mmHg [facility] Respiratory rate 18 bpm 18 bpm [facility] Heart rate 75 bpm 75 bpm [facility] Body temperature 97.9 Fahrenheit 97.9 Fahrenhei t [facility] Diastolic blood 75 mmHg 75 mmHg [facility] Diastolic blood 60 mmHg 60 mmHg [facility] Systolic blood 95 mmHg 95 mmHg [facility] Heart rate 80 bpm 80 bpm [facility] Diastolic blood 65 mmHg 65 mmHg [facility] Systolic blood 99 mmHg 99 mmHg [facility] Respiratory rate 16 bpm 16 bpm [facility] Heart rate 76 bpm 76 bpm [facility] Body temperature 97.4 Fahrenheit 97.4 Fahrenhei t [facility] Diastolic blood 68 mmHg 68 mmHg [facility] Systolic blood 103 mmHg 103 mmHg [facility] Heart rate 86 bpm 86 bpm [facility] Diastolic blood 54 mmHg 54 mmHg [facility] Systolic blood 99 mmHg 99 mmHg [facility] Respiratory rate 18 bpm 18 bpm [facility] Heart rate 87 bpm 87 bpm [facility] Body temperature 98.9 Fahrenheit 98.9 Fahrenhei t [facility] Body weight 129 lbs 129 lbs [facility] Diastolic blood 68 mmHg 68 mmHg [facility] Systolic blood 104 mmHg 104 mmHg [facility] Respiratory rate 18 bpm 18 bpm [facility] Heart rate 86 bpm 86 bpm [facility] Body temperature 95.8 Fahrenheit 95.8 Fahrenhei t [facility] Diastolic blood 68 mmHg 68 mmHg [facility] Systolic blood 103 mmHg 103 mmHg [facility] Respiratory rate 18 bpm 18 bpm [facility] Heart rate 74 bpm 74 bpm [facility] Body temperature 97.5 Fahrenheit 97.5 Fahrenhei t [facility] Diastolic blood 59 mmHg 59 mmHg [facility] Systolic blood 87 mmHg 87 mmHg [facility] Heart rate 80 bpm 80 bpm [facility] Diastolic blood 65 mmHg 65 mmHg [facility] Systolic blood 98 mmHg 98 mmHg [facility] Respiratory rate 17 bpm 17 bpm [facility] Heart rate 75 bpm 75 bpm [facility] Body temperature 96.9 Fahrenheit 96.9 Fahrenhei t [facility] Diastolic blood 57 mmHg 57 mmHg [facility] Systolic blood 96 mmHg 96 mmHg [facility] Heart rate 78 bpm 78 bpm [facility] Diastolic blood 60 mmHg 60 mmHg [facility] Systolic blood 85 mmHg 85 mmHg [facility] Respiratory rate 18 bpm 18 bpm [facility] Heart rate 76 bpm 76 bpm [facility] Body temperature 99.0 Fahrenheit 99.0 Fahrenhei t [facility] Body weight 128 lbs 128 lbs [facility] Diastolic blood 68 mmHg 68 mmHg [facility] Systolic blood 108 mmHg 108 mmHg [facility] Respiratory rate 18 bpm 18 bpm [facility] Heart rate 73 bpm 73 bpm [facility] Body temperature 96.2 Fahrenheit 96.2 Fahrenhei t [facility] Diastolic blood 64 mmHg 64 mmHg [facility] Systolic blood 96 mmHg 96 mmHg [facility] Respiratory rate 18 bpm 18 bpm [facility] Heart rate 80 bpm 80 bpm [facility] Diastolic blood 59 mmHg 59 mmHg [facility] Systolic blood 92 mmHg 92 mmHg [facility] Respiratory rate 18 bpm 18 bpm [facility] Heart rate 72 bpm 72 bpm [facility] Body temperature 97.5 Fahrenheit 97.5 Fahrenhei t [facility] Diastolic blood 61 mmHg 61 mmHg [facility] Systolic blood 95 mmHg 95 mmHg [facility] Heart rate 83 bpm 83 bpm [facility] Body weight 125 lbs 125 lbs [facility] Diastolic blood 67 mmHg 67 mmHg [facility] Systolic blood 100 mmHg 100 mmHg [facility] Deprecated 98 % 98 % [facility] saturation in Hospital Capillary blood by Oximetry Respiratory rate 16 bpm 16 bpm [facility] Heart rate 77 bpm 77 bpm [facility] Body temperature 98.2 Fahrenheit 98.2 Fahrenhei t [facility] Diastolic blood 69 mmHg 69 mmHg [facility] Systolic blood 105 mmHg 105 mmHg [facility] Respiratory rate 18 bpm 18 bpm [facility] Heart rate 74 bpm 74 bpm [facility] Body weight 128 lbs 128 lbs [facility] Diastolic blood 58 mmHg 58 mmHg [facility] Systolic blood 94 mmHg 94 mmHg [facility] Deprecated 97 % 97 % [facility] saturation in [facility] Capillary blood by Oxim[facility] Respiratory rate 18 bpm 18 bpm [facility] Heart rate 81 bpm 81 bpm [facility] Body temperature 99.2 Fahrenheit 99.2 Fahrenhei t [facility] Diastolic blood 66 mmHg 66 mmHg [facility] Systolic blood 106 mmHg 106 mmHg [facility] Respiratory rate 18 bpm 18 bpm [facility] Heart rate 78 bpm 78 bpm [facility] Diastolic blood 61 mmHg 61 mmHg [facility] Systolic blood 99 mmHg 99 mmHg [facility] Respiratory rate 18 bpm 18 bpm [facility] Heart rate 73 bpm 73 bpm [facility] Body temperature 95.5 Fahrenheit 95.5 Fahrenhei t [facility] Diastolic blood 66 mmHg 66 mmHg [facility] Systolic blood 97 mmHg 97 mmHg [facility] Respiratory rate 18 bpm 18 bpm [facility] Heart rate 78 bpm 78 bpm [facility] Diastolic blood 68 mmHg 68 mmHg [facility] Systolic blood 100 mmHg 100 mmHg [facility] Respiratory rate 18 bpm 18 bpm [facility] Heart rate 70 bpm 70 bpm [facility] Body temperature 96.1 Fahrenheit 96.1 Fahrenhei t [facility] Diastolic blood 64 mmHg 64 mmHg [facility] Systolic blood 94 mmHg 94 mmHg [facility] Respiratory rate 18 bpm 18 bpm [facility] Heart rate 92 bpm 92 bpm [facility] Diastolic blood 57 mmHg 57 mmHg [facility] Systolic blood 92 mmHg 92 mmHg [facility] Respiratory rate 18 bpm 18 bpm [facility] Heart rate 89 bpm 89 bpm [facility] Body temperature 97.4 Fahrenheit 97.4 Fahrenhei t [facility] Diastolic blood 68 mmHg 68 mmHg [facility] Systolic blood 96 mmHg 96 mmHg [facility] Heart rate 88 bpm 88 bpm [facility] Diastolic blood 61 mmHg 61 mmHg [facility] Systolic blood 92 mmHg 92 mmHg [facility] Deprecated 97 % 97 % [facility] saturation in [facility] Capillary blood by Oximetry Respiratory rate 18 bpm 18 bpm [facility] Heart rate 78 bpm 78 bpm [facility] Body temperature 97.8 Fahrenheit 97.8 Fahrenhei t [facility] Body weight 124 lbs 124 lbs [facility] Diastolic blood 62 mmHg 62 mmHg [facility] Systolic blood 106 mmHg 106 mmHg [facility] Respiratory rate 18 bpm 18 bpm [facility] Heart rate 87 bpm 87 bpm [facility] Diastolic blood 68 mmHg 68 mmHg [facility] Systolic blood 108 mmHg 108 mmHg [facility] Respiratory rate 18 bpm 18 bpm [facility] Heart rate 83 bpm 83 bpm [facility] Body temperature 94.4 Fahrenheit 94.4 Fahrenhei t [facility] Diastolic blood 66 mmHg 66 mmHg [facility] Systolic blood 100 mmHg 100 mmHg [facility] Respiratory rate 18 bpm 18 bpm [facility] Heart rate 95 bpm 95 bpm [facility] Diastolic blood 74 mmHg 74 mmHg [facility] Systolic blood 108 mmHg 108 mmHg [facility] Respiratory rate 18 bpm 18 bpm [facility] Heart rate 93 bpm 93 bpm [facility] Body temperature 97.8 Fahrenheit 97.8 Fahrenhei t [facility] Diastolic blood 72 mmHg 72 mmHg [facility] Systolic blood 110 mmHg 110 mmHg [facility] Respiratory rate 18 bpm 18 bpm [facility] Heart rate 88 bpm 88 bpm [facility] Body temperature 97.5 Fahrenheit 97.5 Fahrenhei t [facility] Diastolic blood 65 mmHg 65 mmHg [facility] Systolic blood 95 mmHg 95 mmHg [facility] Heart rate 102 bpm 102 bpm [facility] Diastolic blood 77 mmHg 77 mmHg [facility] Systolic blood 111 mmHg 111 mmHg [facility] Respiratory rate 18 bpm 18 bpm [facility] Heart rate 100 bpm 100 bpm [facility] Body temperature 97.6 Fahrenheit 97.6 Fahrenhei t [facility] Body weight 116 lbs 116 lbs [facility] Diastolic blood 71 mmHg 71 mmHg [facility] Systolic blood 107 mmHg 107 mmHg [facility] Deprecated 106 % 106 % [facility] saturation in Hospital Capillary blood by Oxim[facility] Respiratory rate 18 bpm 18 bpm [facility] Heart rate 93 bpm 93 bpm [facility] Body temperature 96.9 Fahrenheit 96.9 Fahrenhei t [facility] Body weight 116 lbs 116 lbs [facility] Diastolic blood 92 mmHg 92 mmHg [facility] Systolic blood 132 mmHg 132 mmHg [facility] Deprecated 106 % 106 % [facility] Oxygen [facility] saturation in Hospital Capillary blood by O[facility] Respiratory rate 18 bpm 18 bpm [facility] Heart rate 87 bpm 87 bpm [facility] Body temperature 96.9 Fahrenheit 96.9 Fahrenhei t [facility] Diastolic blood 62 mmHg 62 mmHg [facility] Systolic blood 87 mmHg 87 mmHg [facility] Respiratory rate 18 bpm 18 bpm [facility] Heart rate 101 bpm 101 bpm [facility] Systolic blood 105 mmHg 105 mmHg [facility] Respiratory rate 18 bpm 18 bpm [facility] Heart rate 100 bpm 100 bpm [facility] Body temperature 97.5 Fahrenheit 97.5 Fahrenhei t [facility] Body weight 115 lbs 115 lbs [facility] Diastolic blood 79 mmHg 79 mmHg [facility] Body weight 116 lbs 116 lbs [facility] Diastolic blood 63 mmHg 63 mmHg [facility] Systolic blood 92 mmHg 92 mmHg [facility] Respiratory rate 18 bpm 18 bpm [facility] Heart rate 102 bpm 102 bpm [facility] Diastolic blood 72 mmHg 72 mmHg [facility] Systolic blood 123 mmHg 123 mmHg [facility] Respiratory rate 18 bpm 18 bpm [facility] Heart rate 100 bpm 100 bpm [facility] Body temperature 98.8 Fahrenheit 98.8 Fahrenhei t [facility] Diastolic blood 64 mmHg 64 mmHg [facility] Systolic blood 103 mmHg 103 mmHg [facility] Heart rate 127 bpm 127 bpm [facility] Diastolic blood 82 mmHg 82 mmHg [facility] Systolic blood 124 mmHg 124 mmHg [facility] Respiratory rate 18 bpm 18 bpm [facility] Heart rate 112 bpm 112 bpm [facility] Body temperature 98.6 Fahrenheit 98.6 Fahrenhei t [facility] Diastolic blood 69 mmHg 69 mmHg [facility] Systolic blood 98 mmHg 98 mmHg [facility] Deprecated 99 % 99 % [facility] saturation in Hospital Capillary blood by Oxim[facility] Respiratory rate 18 bpm 18 bpm [facility] Heart rate 98 bpm 98 bpm [facility] Body temperature 97.8 Fahrenheit 97.8 Fahrenhei t [facility] Diastolic blood 82 mmHg 82 mmHg [facility] Systolic blood 114 mmHg 114 mmHg [facility] Deprecated 98 % 98 % [facility] Oxygen [facility] saturation in Hospital Capillary blood by [facility] Respiratory rate 18 bpm 18 bpm [facility] Heart rate 107 bpm 107 bpm [facility] Body temperature 98.2 Fahrenheit 98.2 Fahrenh t [facility] Diastolic blood 63 mmHg 63 mmHg [facility] Systolic blood 92 mmHg 92 mmHg [facility] Heart rate 113 bpm 113 bpm [facility] Diastolic blood 74 mmHg 74 mmHg [facility] Systolic blood 105 mmHg 105 mmHg [facility] Respiratory rate 19 bpm 19 bpm [facility] Heart rate 109 bpm 109 bpm [facility] Body temperature 98.3 Fahrenheit 98.3 Fahrenhei t [facility] Oxygen 98 % 98 % [facility] saturation in ([facility]) Body mass index 20.18 kg/m2 20.18 kg/m2 [facility] (BMI) [Ratio] ([facility]) Body temperature 36.67 Sugar 36.67 Sugar [facility] ([facility]) Heart rate 110 /min 110 [facility] Diastolic blood 88 mm[Hg] 88 mm[Hg] [facility] pressure ([facility]) Systolic blood 132 mm[Hg] 132 mm[Hg] [facility] Body weight 56.699 kg 56.699 [facility] Body height 167.64 cm 167.64 cm [facility] ([facility]) ID Date Data Source [id number] 03/02/2020 01:50:59 PM EDT [facility] Name Value Range Interpretation Code Description Data Source(s) Body weight Measured 135 lb 135 lb [facility] Body weight Measured 134 lb 134 lb [facility] Body weight Measured 124 lb 124 lb [facility] Body weight Measured 129 lb 129 lb [facility] Body weight Measured 128 lb 128 lb [facility] Body weight Measured 125 lb 125 lb [facility] Body weight Measured 128 lb 128 lb [facility] Body weight Measured 124 lb 124 lb [facility] Body weight Measured 116 lb 116 lb [facility] Body weight Measured 115 lb 115 lb [facility] Body weight Measured 116 lb 116 lb [facility] Patient Treatment Plan of Care Planned Activity [...] GEN ([facility] succinate 50 MG Extended AM [facility] Medical Release Oral Tablet Center) [Toprol] POLYETHYLENE GLYCOL 3350 04/15/2020 12:00[facility]/ML [facility] [place]) Omeprazole 40 MG Delayed 04/15/2020 12:00:00 [facility] Release Oral Capsule [facility]) Omeprazole 40 MG Delayed 03/15/2020 12:00:00 [facility] Release Oral Caps[facility]) 24 HR metoprolol 03/15/2020 12:00:00 [facility] ([facility] succinate 50 MG Extended AM [facility] Medical Release Oral Tablet Center) [Toprol] Mirtazapine 30 MG Oral 03/15/2020 12:00:00 [facility] Tablet [Remeron] [facility]) Haldol Decanoate 100 03/15/2020 12:00:00 [facility] ([facility] mg/mL intramuscular [facility]) benztropine mesylate 1 MG 03/15/2020 12:00:00 [facility] Oral Tablet [facility]) Trazodone Hydrochloride 03/15/2020 12:00:00 [facility] 150 MG Oral Tablet [facility]) Clozaril 50 mg tablet 03/15/2020 12:00:00 [facility] AM [facility]) POLYETHYLENE GLYCOL 3350 11/13/2018 12:00:00 [facility] ([facility] 142 MG/ML Oral Solution [facility] [Miralax] Center) Clotrimazole 10 MG/ML 11/13/2018 12:00:00 [facility] ([facility] Topical Cream [Lotrimin] [facility]) Clozapine 100 MG Oral 11/13/2018 12:00:00 [facility] ([facility] Tablet [facility]) benztropine mesylate 1 MG 08/14/2018 12:00:00 [facility] ([facility] Oral Tablet [facility]) 24 HR Bupropion 08/14/2018 12:00:00 NEXTG EN ([facility] Hydrochloride 300 MG [facility] Extended Release [facility] ) Tablet [Wellbutrin] Trazodone Hydrochloride 08/14/2018 12:00:00 [facility] ([facility] 150 MG Oral Tablet [facility]) Metoprolol Tartrate 25 MG 08/14/2018 12:00:00 [facility]EXT[facility] ([facility] Oral Tablet [facility]) Risperidone 2 MG Oral 11/13/2017 12:00:00 [facility]EXT[facility] (Saint Tablet [Risperdal] [facility])
[2020-05-12 07:29] VITALS: BMI 20.9
[2020-05-12] MEDS ORDERED: KETAMINE HCL 500 MG/10 ML VIAL ONE (08:03)
[2020-05-12] MEDS ORDERED: PROPOFOL 20 ML ONE (08:43)
[2020-05-12] MEDS ORDERED: SUCCINYLCHOLINE CHLORIDE 200 MG/10 ML SYRINGE ONE (08:44)
[2020-05-12 09:55] VITALS: TEMP 98
[2020-05-12 10:16] VITALS: BP 136/61; PULSE 85
== END 2020-05-12 10:20 | disposition home or self-care (01) ==
LOC: FECT 06:41
PROVIDERS: ATTEND Psychiatry & Neurology Psychiatry
PROC: GZB4ZZZ Other Electroconvulsive Therapy (ICD-10-PCS; principal; 2020-05-12 09:30)
DX: F32.9 Major depressive disorder, single episode, unspecified (principal)
CPT/HCPCS: 90870; 94760

== ENCOUNTER 2020-05-26 05:45 | Day surgery (SDC) | payer OTHER ==
[2020-05-26 07:13] VITALS: TEMP 98.1; BMI 17.9
[2020-05-26] MEDS ORDERED: KETAMINE HCL 500 MG/10 ML VIAL ONE (09:00)
[2020-05-26 10:58] VITALS: BP 131/89; PULSE 86
== END 2020-05-26 11:30 | disposition home or self-care (01) ==
LOC: FECT 05:45
PROVIDERS: ATTEND Psychiatry & Neurology Psychiatry
PROC: GZB4ZZZ Other Electroconvulsive Therapy (ICD-10-PCS; principal; 2020-05-26 09:30)
DX: F32.9 Major depressive disorder, single episode, unspecified (principal)
CPT/HCPCS: 90870; 94760

== ENCOUNTER 2020-06-02 06:14 | Day surgery (SDC) | payer OTHER ==
[2020-06-02 07:36] VITALS: BMI 17.9
[2020-06-02] MEDS ORDERED: KETAMINE HCL 500 MG/10 ML VIAL ONE (08:29)
[2020-06-02 10:42] VITALS: TEMP 98.7
[2020-06-02 11:29] VITALS: BP 132/82; PULSE 91
== END 2020-06-02 11:35 | disposition home or self-care (01) ==
LOC: FECT 06:14
PROVIDERS: ATTEND Psychiatry & Neurology Psychiatry
PROC: GZB4ZZZ Other Electroconvulsive Therapy (ICD-10-PCS; principal; 2020-06-02 09:00)
DX: F32.9 Major depressive disorder, single episode, unspecified (principal)
CPT/HCPCS: 90870; 94760

== ENCOUNTER 2020-06-17 06:17 | Day surgery (SDC) | payer OTHER ==
[2020-06-17] MEDS ORDERED: KETAMINE HCL 500 MG/10 ML VIAL ONE (07:38)
[2020-06-17] MEDS ORDERED: ONDANSETRON 4 MG/2 ML VIAL ONE (07:42)
[2020-06-17 08:56] VITALS: TEMP 98.1
[2020-06-17 10:05] VITALS: BP 133/79; PULSE 67
[2020-06-17 12:02] VITALS: BMI 18.2
== END 2020-06-17 10:05 | disposition home or self-care (01) ==
LOC: FECT 06:17
PROVIDERS: ATTEND Psychiatry & Neurology Psychiatry
PROC: GZB4ZZZ Other Electroconvulsive Therapy (ICD-10-PCS; principal; 2020-06-17 08:00)
DX: F32.9 Major depressive disorder, single episode, unspecified (principal)
CPT/HCPCS: 90870; 94760

== ENCOUNTER 2020-06-23 07:08 | Day surgery (SDC) | payer OTHER ==
[2020-06-22 14:32] VITALS: BMI 18.2
[2020-06-23] MEDS ORDERED: PROPOFOL 20 ML ONE (07:56)
[2020-06-23] MEDS ORDERED: KETAMINE HCL 500 MG/10 ML VIAL ONE (07:57)
[2020-06-23] MEDS ORDERED: ONDANSETRON 4 MG/2 ML VIAL ONE (08:13)
[2020-06-23 09:16] VITALS: TEMP 97.5
[2020-06-23 09:33] VITALS: BP 119/79; PULSE 79
== END 2020-06-23 10:00 | disposition home or self-care (01) ==
LOC: FECT 07:08
PROVIDERS: ATTEND Psychiatry & Neurology Psychiatry
PROC: GZB4ZZZ Other Electroconvulsive Therapy (ICD-10-PCS; principal; 2020-06-23 08:30)
DX: F32.9 Major depressive disorder, single episode, unspecified (principal)
CPT/HCPCS: 90870; 94760

== ENCOUNTER 2020-07-01 09:58 | Day surgery (SDC) | payer OTHER ==
[2020-06-30 11:56] VITALS: BMI 18.2
[2020-07-01 10:26] VITALS: TEMP 98.5
[2020-07-01] MEDS ORDERED: KETAMINE HCL 500 MG/10 ML VIAL ONE (11:42)
[2020-07-01 14:09] VITALS: BP 131/75; PULSE 77
== END 2020-07-01 14:00 | disposition home or self-care (01) ==
LOC: FECT 09:58
PROVIDERS: ATTEND Psychiatry & Neurology Psychiatry
PROC: GZB4ZZZ Other Electroconvulsive Therapy (ICD-10-PCS; principal; 2020-07-01 11:30)
DX: F32.9 Major depressive disorder, single episode, unspecified (principal)
CPT/HCPCS: 90870; 94760

== ENCOUNTER 2020-07-07 09:33 | Day surgery (SDC) | payer OTHER ==
[2020-07-01 15:08] VITALS: BMI 18.2
[2020-07-07] MEDS ORDERED: KETAMINE HCL 500 MG/10 ML VIAL ONE (10:22)
[2020-07-07] MEDS ORDERED: ONDANSETRON 4 MG/2 ML VIAL IVPUSH PRN (10:45)
[2020-07-07] MEDS ORDERED: LACTATED RINGERS SOLUTION 1,000 ML IV SCH (10:45)
[2020-07-07 12:13] VITALS: BP 133/88; PULSE 77; TEMP 97.9
== END 2020-07-07 12:25 | disposition home or self-care (01) ==
LOC: FECT 09:33
PROVIDERS: ATTEND Psychiatry & Neurology Psychiatry
PROC: GZB4ZZZ Other Electroconvulsive Therapy (ICD-10-PCS; principal; 2020-07-07 10:30)
DX: F32.9 Major depressive disorder, single episode, unspecified (principal)
CPT/HCPCS: 90870; 94760

== ENCOUNTER 2020-07-14 06:39 | Day surgery (SDC) | payer OTHER ==
[2020-07-14 07:18] VITALS: BMI 16.9
[2020-07-14] MEDS ORDERED: KETAMINE HCL 500 MG/10 ML VIAL ONE (08:05)
[2020-07-14 09:50] VITALS: BP 112/78; PULSE 74; TEMP 98
[2020-07-14] MEDS ORDERED: ONDANSETRON 4 MG/2 ML VIAL IVPUSH PRN (11:11)
[2020-07-14] MEDS ORDERED: LACTATED RINGERS SOLUTION 1,000 ML IV SCH (11:15)
== END 2020-07-14 10:45 | disposition home or self-care (01) ==
LOC: FECT 06:39
PROVIDERS: ATTEND Psychiatry & Neurology Psychiatry
PROC: GZB4ZZZ Other Electroconvulsive Therapy (ICD-10-PCS; principal; 2020-07-14 08:00)
DX: F33.2 Major depressive disorder, recurrent severe without psychotic features (principal)
CPT/HCPCS: 90870; 94760

== ENCOUNTER → 2020-07-21 | Day surgery (SDC) | payer OTHER ==
[~2020-07-21] MED LIST changes: -ACETAMINOPHEN 325 MG TABLET (FP) PO PRN; +KETAMINE HCL 500 MG/10 ML VIAL ONE; -LACTATED RINGERS SOLUTION 1,000 ML IV SCH; -PROMETHAZINE HCL 25 MG/1 ML VIAL IVPUSH PRN
[2020-07-21 10:47] VITALS: BMI 17.4
[2020-07-21 14:16] VITALS: TEMP 97.6
[2020-07-21 14:18] VITALS: BP 119/79; PULSE 78
== END | disposition home or self-care (01) ==
LOC: FECT 09:31
PROVIDERS: ATTEND Psychiatry & Neurology Psychiatry
PROC: GZB4ZZZ Other Electroconvulsive Therapy (ICD-10-PCS; principal; 2020-07-21 11:00)
DX: F32.9 Major depressive disorder, single episode, unspecified (principal)
CPT/HCPCS: 90870; 94760

== ENCOUNTER 2020-07-28 07:45 | Day surgery (SDC) | payer OTHER ==
[2020-07-28 08:37] VITALS: BMI 17.7
[2020-07-28] MEDS ORDERED: PROPOFOL 20 ML ONE (10:10)
[2020-07-28] MEDS ORDERED: KETAMINE HCL 500 MG/10 ML VIAL ONE (10:11)
[2020-07-28 13:54] VITALS: BP 121/61; PULSE 71; TEMP 97.9
== END 2020-07-28 13:30 | disposition home or self-care (01) ==
LOC: FECT 07:45
PROVIDERS: ATTEND Psychiatry & Neurology Psychiatry
PROC: GZB4ZZZ Other Electroconvulsive Therapy (ICD-10-PCS; principal; 2020-07-28 09:30)
DX: F32.9 Major depressive disorder, single episode, unspecified (principal)
CPT/HCPCS: 90870; 94760

== ENCOUNTER 2020-08-04 07:54 | Day surgery (SDC) | payer OTHER ==
[2020-08-04 08:49] VITALS: BMI 17.0
[2020-08-04] MEDS ORDERED: KETAMINE HCL 500 MG/10 ML VIAL ONE (09:10)
[2020-08-04 10:31] VITALS: PULSE 83; TEMP 98.1
[2020-08-04 11:56] VITALS: BP 128/78
== END 2020-08-04 11:50 | disposition home or self-care (01) ==
LOC: FECT 07:54
PROVIDERS: ATTEND Psychiatry & Neurology Psychiatry
PROC: GZB4ZZZ Other Electroconvulsive Therapy (ICD-10-PCS; principal; 2020-08-04 09:00)
DX: F32.9 Major depressive disorder, single episode, unspecified (principal)
CPT/HCPCS: 90870; 94760

== ENCOUNTER 2020-08-11 07:01 | Day surgery (SDC) | payer OTHER ==
[2020-08-11 07:24] VITALS: BMI 17.3
[2020-08-11] MEDS ORDERED: KETAMINE HCL 500 MG/10 ML VIAL ONE (09:08)
[2020-08-11 11:09] VITALS: TEMP 98.6
[2020-08-11] MEDS ORDERED: ACETAMINOPHEN 325 MG TABLET (FP) PO PRN (13:08)
[2020-08-11] MEDS ORDERED: LACTATED RINGERS SOLUTION 1,000 ML IV SCH (13:15)
[2020-08-11 13:45] VITALS: BP 115/68; PULSE 94
== END 2020-08-11 12:20 | disposition home or self-care (01) ==
LOC: FECT 07:01
PROVIDERS: ATTEND Psychiatry & Neurology Psychiatry
PROC: GZB4ZZZ Other Electroconvulsive Therapy (ICD-10-PCS; principal; 2020-08-11 10:00)
DX: F32.9 Major depressive disorder, single episode, unspecified (principal)
CPT/HCPCS: 90870; 94760

== ENCOUNTER 2020-08-25 07:03 | Day surgery (SDC) | payer OTHER ==
[2020-08-25 07:45] VITALS: TEMP 97.8; BMI 17.5
[2020-08-25] MEDS ORDERED: PROPOFOL 20 ML ONE (09:10)
[2020-08-25] MEDS ORDERED: SUCCINYLCHOLINE CHLORIDE 200 MG/10 ML SYRINGE ONE (09:11)
[2020-08-25] MEDS ORDERED: KETAMINE HCL 500 MG/10 ML VIAL ONE (09:11)
[2020-08-25 10:35] VITALS: BP 125/81; PULSE 77
== END 2020-08-25 11:30 | disposition home or self-care (01) ==
LOC: FECT 07:03
PROVIDERS: ATTEND Psychiatry & Neurology Psychiatry
PROC: GZB4ZZZ Other Electroconvulsive Therapy (ICD-10-PCS; principal; 2020-08-25 09:30)
DX: F32.9 Major depressive disorder, single episode, unspecified (principal)
CPT/HCPCS: 90870; 93005; 94760

== ENCOUNTER 2020-09-08 07:57 | Day surgery (SDC) | payer OTHER ==
[2020-09-08 08:46] LABS: HEMATOCRIT 39.4 % (35.4-49); HEMOGLOBIN 12.8 GM/dl (11.7-16.9); MCH 29.4 pg (25.7-33.7); MCHC 32.5 g/dl (32.0-35.9); MEAN CELL VOLUME 90.4 fl (80-96); MEAN PLT VOLUME 7.8 fl (7.5-11.1); PLATELET COUNT 315 K/MM3 (134-434); RBC 4.35 M/mm3 (4.00-5.60); RDW 14.3 % (11.9-15.9); WHITE BLOOD COUNT 6.2 K/mm3 (4.0-10.8)
[2020-09-08 08:53] LABS: ALBUMIN 4.2 g/dl (3.4-5.0); BILIRUBIN,TOTAL 0.4 mg/dl (0.2-1); CREATININE 0.9 mg/dl (0.55-1.3); POTASSIUM 3.8 mmol/L (3.5-5.1); TOT PROT 6.5 g/dl (6.4-8.2)
[2020-09-08 08:54] VITALS: TEMP 97.8; BMI 18.1
[2020-09-08] MEDS ORDERED: KETAMINE HCL 500 MG/10 ML VIAL ONE (09:25)
[2020-09-08] MEDS ORDERED: LACTATED RINGERS SOLUTION 1,000 ML IV SCH (10:30)
[2020-09-08 11:01] VITALS: BP 135/85; PULSE 87
== END 2020-09-08 11:45 | disposition home or self-care (01) ==
LOC: FECT 07:57
PROVIDERS: ATTEND Psychiatry & Neurology Psychiatry
PROC: GZB4ZZZ Other Electroconvulsive Therapy (ICD-10-PCS; principal; 2020-09-08 07:30)
DX: F32.9 Major depressive disorder, single episode, unspecified (principal)
CPT/HCPCS: 36415; 80053; 85027; 90870; 94760

== ENCOUNTER → 2020-09-15 | Day surgery (SDC) | payer OTHER ==
[2020-09-15 09:00] VITALS: BMI 18.3
[2020-09-15 10:25] VITALS: TEMP 98.2
[2020-09-15 11:05] VITALS: BP 121/71; PULSE 83
== END | disposition home or self-care (01) ==
LOC: FECT 08:36
PROVIDERS: ATTEND Psychiatry & Neurology Psychiatry
PROC: GZB4ZZZ Other Electroconvulsive Therapy (ICD-10-PCS; principal; 2020-09-15 10:00)
DX: F32.9 Major depressive disorder, single episode, unspecified (principal)
CPT/HCPCS: 90870; 94760

== ENCOUNTER 2020-09-22 09:12 | Day surgery (SDC) | payer OTHER ==
[2020-09-22 09:37] VITALS: BMI 18.3
[2020-09-22] MEDS ORDERED: KETAMINE HCL 500 MG/10 ML VIAL ONE (11:47)
[2020-09-22 12:20] VITALS: TEMP 98.2
[2020-09-22 13:06] VITALS: PULSE 73
[2020-09-22 13:09] VITALS: BP 121/71
== END 2020-09-22 14:00 | disposition home or self-care (01) ==
LOC: FECT 09:12
PROVIDERS: ATTEND Psychiatry & Neurology Psychiatry
PROC: GZB4ZZZ Other Electroconvulsive Therapy (ICD-10-PCS; principal; 2020-09-22 10:30)
DX: F32.9 Major depressive disorder, single episode, unspecified (principal)
CPT/HCPCS: 90870; 94760

== ENCOUNTER 2020-09-29 08:10 | Day surgery (SDC) | payer OTHER ==
[2020-09-29 08:31] VITALS: BMI 18.3
[2020-09-29] MEDS ORDERED: KETAMINE HCL 500 MG/10 ML VIAL ONE (09:14)
[2020-09-29 09:57] VITALS: TEMP 97.8
[2020-09-29 11:20] VITALS: BP 121/79; PULSE 69
== END 2020-09-29 11:50 | disposition home or self-care (01) ==
LOC: FECT 08:10
PROVIDERS: ATTEND Psychiatry & Neurology Psychiatry
PROC: GZB4ZZZ Other Electroconvulsive Therapy (ICD-10-PCS; principal; 2020-09-29 09:30)
DX: F32.9 Major depressive disorder, single episode, unspecified (principal)
CPT/HCPCS: 90870; 94760

== ENCOUNTER 2020-10-06 06:43 | Day surgery (SDC) | payer OTHER ==
[2020-10-06 07:21] VITALS: BMI 18.5
[2020-10-06] MEDS ORDERED: KETAMINE HCL 500 MG/10 ML VIAL ONE (07:49)
[2020-10-06 08:57] VITALS: TEMP 97.9
[2020-10-06 12:58] VITALS: BP 130/77; PULSE 76
== END 2020-10-06 11:35 | disposition home or self-care (01) ==
LOC: FECT 06:43
PROVIDERS: ATTEND Psychiatry & Neurology Psychiatry
PROC: GZB4ZZZ Other Electroconvulsive Therapy (ICD-10-PCS; principal; 2020-10-06 09:30)
DX: F32.9 Major depressive disorder, single episode, unspecified (principal)
CPT/HCPCS: 90870; 94760

== ENCOUNTER 2020-10-13 05:53 | Day surgery (SDC) | payer OTHER ==
[2020-10-13 08:05] VITALS: BMI 18.6
[2020-10-13] MEDS ORDERED: KETAMINE HCL 500 MG/10 ML VIAL ONE (09:38)
[2020-10-13] MEDS ORDERED: PROPOFOL 20 ML ONE (09:46)
[2020-10-13 10:47] VITALS: TEMP 98.5
[2020-10-13 11:48] VITALS: BP 125/85; PULSE 81
== END 2020-10-13 11:30 | disposition home or self-care (01) ==
LOC: FECT 05:53
PROVIDERS: ATTEND Psychiatry & Neurology Psychiatry
PROC: GZB4ZZZ Other Electroconvulsive Therapy (ICD-10-PCS; principal; 2020-10-13 09:30)
DX: F32.9 Major depressive disorder, single episode, unspecified (principal)
CPT/HCPCS: 90870; 94760

== ENCOUNTER 2020-10-20 06:32 | Day surgery (SDC) | payer OTHER ==
[2020-10-20 07:12] VITALS: BMI 18.5
[2020-10-20] MEDS ORDERED: KETAMINE HCL 200 MG/20 ML VIAL ONE (08:10)
[2020-10-20 08:41] VITALS: TEMP 97.8
[2020-10-20 09:46] VITALS: BP 125/85; PULSE 79
== END 2020-10-20 11:35 | disposition home or self-care (01) ==
LOC: FECT 06:32
PROVIDERS: ATTEND Psychiatry & Neurology Psychiatry
PROC: GZB4ZZZ Other Electroconvulsive Therapy (ICD-10-PCS; principal; 2020-10-20 09:30)
DX: F32.9 Major depressive disorder, single episode, unspecified (principal)
CPT/HCPCS: 90870; 94760

== ENCOUNTER 2020-10-27 07:20 | Day surgery (SDC) | payer OTHER ==
[2020-10-24 17:24] VITALS: BMI 18.5
[2020-10-27] MEDS ORDERED: KETAMINE HCL 500 MG/10 ML VIAL ONE (09:44)
[2020-10-27 12:56] VITALS: TEMP 98.1
[2020-10-27 13:05] VITALS: BP 130/84; PULSE 78
== END 2020-10-27 12:00 | disposition home or self-care (01) ==
LOC: FECT 07:20
PROVIDERS: ATTEND Psychiatry & Neurology Psychiatry
PROC: GZB4ZZZ Other Electroconvulsive Therapy (ICD-10-PCS; principal; 2020-10-27 09:30)
DX: F32.9 Major depressive disorder, single episode, unspecified (principal)
CPT/HCPCS: 90870; 94760

== ENCOUNTER 2020-11-03 07:14 | Day surgery (SDC) | payer OTHER ==
[2020-10-27 16:44] VITALS: BMI 18.5
[2020-11-03] MEDS ORDERED: KETAMINE HCL 500 MG/10 ML VIAL ONE (07:57)
[2020-11-03 09:01] VITALS: TEMP 98.4
[2020-11-03 10:39] VITALS: BP 125/88; PULSE 79
== END 2020-11-03 10:55 | disposition home or self-care (01) ==
LOC: FECT 07:14
PROVIDERS: ATTEND Psychiatry & Neurology Psychiatry
PROC: GZB4ZZZ Other Electroconvulsive Therapy (ICD-10-PCS; principal; 2020-11-03 09:45)
DX: F32.9 Major depressive disorder, single episode, unspecified (principal)
CPT/HCPCS: 90870; 94760

== ENCOUNTER 2020-11-10 07:48 | Day surgery (SDC) | payer OTHER ==
[2020-11-10 08:27] VITALS: BMI 18.5
[2020-11-10] MEDS ORDERED: KETAMINE HCL 500 MG/10 ML VIAL ONE (09:37)
[2020-11-10] MEDS ORDERED: PROPOFOL 20 ML ONE (09:41)
[2020-11-10] MEDS ORDERED: ONDANSETRON 4 MG/2 ML VIAL ONE (09:41)
[2020-11-10] MEDS ORDERED: ONDANSETRON 4 MG/2 ML VIAL IVPUSH PRN (10:20)
[2020-11-10] MEDS ORDERED: LACTATED RINGERS SOLUTION 1,000 ML IV SCH (10:30)
[2020-11-10 11:08] VITALS: TEMP 97.1
[2020-11-10 11:10] VITALS: BP 121/76; PULSE 74
== END 2020-11-10 11:35 | disposition home or self-care (01) ==
LOC: FECT 07:48
PROVIDERS: ATTEND Psychiatry & Neurology Psychiatry
PROC: GZB4ZZZ Other Electroconvulsive Therapy (ICD-10-PCS; principal; 2020-11-10 08:30)
DX: F32.9 Major depressive disorder, single episode, unspecified (principal)
CPT/HCPCS: 90870; 94760

== ENCOUNTER → 2020-11-17 | Day surgery (SDC) | payer OTHER ==
[2020-11-17 10:53] VITALS: TEMP 97.7
[2020-11-17 11:40] VITALS: BP 131/87; PULSE 82
== END | disposition home or self-care (01) ==
LOC: FECT 05:54
PROVIDERS: ATTEND Psychiatry & Neurology Psychiatry
PROC: GZB4ZZZ Other Electroconvulsive Therapy (ICD-10-PCS; principal; 2020-11-17 09:30)
DX: F32.9 Major depressive disorder, single episode, unspecified (principal)
CPT/HCPCS: 90870; 94760

== ENCOUNTER 2020-11-24 07:09 | Day surgery (SDC) | payer OTHER ==
[2020-11-24 07:39] VITALS: BMI 18.8
[2020-11-24] MEDS ORDERED: KETAMINE HCL 500 MG/10 ML VIAL ONE (09:46)
[2020-11-24 10:26] VITALS: TEMP 98.2
[2020-11-24 11:32] VITALS: BP 130/77; PULSE 71
== END 2020-11-24 11:45 | disposition home or self-care (01) ==
LOC: FECT 07:09
PROVIDERS: ATTEND Psychiatry & Neurology Psychiatry
PROC: GZB4ZZZ Other Electroconvulsive Therapy (ICD-10-PCS; principal; 2020-11-24 09:30)
DX: F32.9 Major depressive disorder, single episode, unspecified (principal)
CPT/HCPCS: 90870; 94760

== ENCOUNTER 2020-12-01 09:49 | Day surgery (SDC) | payer OTHER ==
[2020-12-01 10:13] VITALS: BMI 19.1
[2020-12-01] MEDS ORDERED: KETAMINE HCL 500 MG/10 ML VIAL ONE (10:48)
[2020-12-01 12:25] VITALS: TEMP 97.8
[2020-12-01 12:57] VITALS: BP 131/81; PULSE 73
== END 2020-12-01 13:20 | disposition home or self-care (01) ==
LOC: FECT 09:49
PROVIDERS: ATTEND Psychiatry & Neurology Psychiatry
PROC: GZB4ZZZ Other Electroconvulsive Therapy (ICD-10-PCS; principal; 2020-12-01 09:45)
DX: F32.9 Major depressive disorder, single episode, unspecified (principal)
CPT/HCPCS: 90870; 94760

== ENCOUNTER → 2020-12-15 | Day surgery (SDC) | payer OTHER ==
[~2020-12-15] MED LIST changes: +KETAMINE HCL 200 MG/20 ML VIAL ONE; -KETAMINE HCL 500 MG/10 ML VIAL ONE; +PROPOFOL 20 ML ONE; +SUCCINYLCHOLINE CHLORIDE 200 MG/10 ML SYRINGE ONE
[2020-12-15 07:54] VITALS: BMI 19.3
[2020-12-15 12:32] VITALS: TEMP 98.2
[2020-12-15 18:01] VITALS: BP 124/82; PULSE 78
== END | disposition home or self-care (01) ==
LOC: FECT 06:15
PROVIDERS: ATTEND Psychiatry & Neurology Psychiatry
PROC: GZB4ZZZ Other Electroconvulsive Therapy (ICD-10-PCS; principal; 2020-12-15 08:00)
DX: F33.2 Major depressive disorder, recurrent severe without psychotic features (principal)
CPT/HCPCS: 90870; 94760

== ENCOUNTER 2020-12-22 08:59 | Day surgery (SDC) | payer OTHER ==
[2020-12-22 09:50] VITALS: BMI 19.0
[2020-12-22] MEDS ORDERED: KETAMINE HCL 500 MG/10 ML VIAL ONE (10:55)
[2020-12-22] MEDS ORDERED: ONDANSETRON 4 MG/2 ML VIAL ONE (11:05)
[2020-12-22] MEDS ORDERED: PROPOFOL 20 ML ONE (11:06)
[2020-12-22] MEDS ORDERED: ONDANSETRON 4 MG/2 ML VIAL IVPUSH PRN (11:58)
[2020-12-22] MEDS ORDERED: LACTATED RINGERS SOLUTION 1,000 ML IV SCH (12:00)
[2020-12-22 12:09] VITALS: TEMP 98.1
[2020-12-22 12:40] VITALS: BP 121/67; PULSE 94
== END 2020-12-22 12:50 | disposition home or self-care (01) ==
LOC: FECT 08:59
PROVIDERS: ATTEND Psychiatry & Neurology Psychiatry
PROC: GZB4ZZZ Other Electroconvulsive Therapy (ICD-10-PCS; principal; 2020-12-22 11:00)
DX: F32.9 Major depressive disorder, single episode, unspecified (principal)
CPT/HCPCS: 90870; 94760

== ENCOUNTER 2020-12-29 08:30 | Day surgery (SDC) | payer OTHER ==
[2020-12-29 09:03] VITALS: BMI 19.1
[2020-12-29] MEDS ORDERED: KETAMINE HCL 500 MG/10 ML VIAL ONE (09:35)
[2020-12-29 12:05] VITALS: TEMP 97.5
[2020-12-29 12:14] VITALS: BP 121/76; PULSE 94
== END 2020-12-29 12:15 | disposition home or self-care (01) ==
LOC: FECT 08:30
PROVIDERS: ATTEND Psychiatry & Neurology Psychiatry
PROC: GZB4ZZZ Other Electroconvulsive Therapy (ICD-10-PCS; principal; 2020-12-29 10:00)
DX: F32.9 Major depressive disorder, single episode, unspecified (principal)
CPT/HCPCS: 90870; 94760

== ENCOUNTER 2021-01-05 08:15 | Day surgery (SDC) | payer OTHER ==
[~2021-01-05 08:15] MED LIST changes: -KETAMINE HCL 200 MG/20 ML VIAL ONE; +LACTATED RINGERS SOLUTION 1,000 ML IV SCH; -PROPOFOL 20 ML ONE; -SUCCINYLCHOLINE CHLORIDE 200 MG/10 ML SYRINGE ONE
[2021-01-05 08:31] VITALS: BMI 19.1
[2021-01-05] MEDS ORDERED: KETAMINE HCL 500 MG/10 ML VIAL ONE (08:45)
[2021-01-05 10:05] VITALS: TEMP 98
[2021-01-05 10:15] VITALS: BP 110/76; PULSE 89
== END 2021-01-05 10:45 | disposition home or self-care (01) ==
LOC: FECT 08:15
PROVIDERS: ATTEND Psychiatry & Neurology Psychiatry
PROC: GZB4ZZZ Other Electroconvulsive Therapy (ICD-10-PCS; principal; 2021-01-05 09:30)
DX: F33.2 Major depressive disorder, recurrent severe without psychotic features (principal)
CPT/HCPCS: 90870; 94760

== ENCOUNTER 2021-01-12 08:26 | Day surgery (SDC) | payer OTHER ==
[2021-01-12 09:25] VITALS: TEMP 97.8; BMI 19.3
[2021-01-12] MEDS ORDERED: KETAMINE HCL 500 MG/10 ML VIAL ONE (10:41)
[2021-01-12] MEDS ORDERED: PROPOFOL 20 ML ONE ×2 (10:44)
[2021-01-12] MEDS ORDERED: ONDANSETRON 4 MG/2 ML VIAL ONE (10:45)
[2021-01-12 12:26] VITALS: BP 125/89; PULSE 79
[2021-01-12] MEDS ORDERED: ACETAMINOPHEN 325 MG TABLET (FP) PO PRN (13:44)
[2021-01-12] MEDS ORDERED: ONDANSETRON 4 MG/2 ML VIAL IVPUSH PRN (13:44)
[2021-01-12] MEDS ORDERED: PROMETHAZINE HCL 25 MG/1 ML VIAL IVPUSH PRN (13:44)
[2021-01-12] MEDS ORDERED: LACTATED RINGERS SOLUTION 1,000 ML IV SCH (13:45)
== END 2021-01-12 12:35 | disposition home or self-care (01) ==
LOC: FECT 08:26
PROVIDERS: ATTEND Psychiatry & Neurology Psychiatry
PROC: GZB4ZZZ Other Electroconvulsive Therapy (ICD-10-PCS; principal; 2021-01-12 10:30)
DX: F33.2 Major depressive disorder, recurrent severe without psychotic features (principal)
CPT/HCPCS: 90870; 94760

== ENCOUNTER 2021-01-19 06:35 | Day surgery (SDC) | payer OTHER ==
[2021-01-19 07:18] VITALS: BMI 19.3
[2021-01-19] MEDS ORDERED: KETAMINE HCL 500 MG/10 ML VIAL ONE (07:43)
[2021-01-19 09:15] VITALS: TEMP 97.6
[2021-01-19 09:16] VITALS: PULSE 87
[2021-01-19 12:08] VITALS: BP 127/78
== END 2021-01-19 11:00 | disposition home or self-care (01) ==
LOC: FECT 06:35
PROVIDERS: ATTEND Psychiatry & Neurology Psychiatry
PROC: GZB4ZZZ Other Electroconvulsive Therapy (ICD-10-PCS; principal; 2021-01-19 09:00)
DX: F32.9 Major depressive disorder, single episode, unspecified (principal)
CPT/HCPCS: 90870; 94760

== ENCOUNTER 2021-01-26 06:23 | Day surgery (SDC) | payer OTHER ==
[2021-01-26 07:13] VITALS: BMI 19.3
[2021-01-26] MEDS ORDERED: KETAMINE HCL 500 MG/10 ML VIAL ONE (08:17)
[2021-01-26 09:24] VITALS: TEMP 97.5
[2021-01-26 09:45] VITALS: BP 122/82; PULSE 74
== END 2021-01-26 10:15 | disposition home or self-care (01) ==
LOC: FECT 06:23
PROVIDERS: ATTEND Psychiatry & Neurology Psychiatry
PROC: GZB4ZZZ Other Electroconvulsive Therapy (ICD-10-PCS; principal; 2021-01-26 08:30)
DX: F32.9 Major depressive disorder, single episode, unspecified (principal)
CPT/HCPCS: 90870; 94760

== ENCOUNTER 2021-02-02 08:20 | Day surgery (SDC) | payer OTHER ==
[2021-02-02 08:46] VITALS: BMI 19.8
[2021-02-02] MEDS ORDERED: KETAMINE HCL 500 MG/10 ML VIAL ONE (10:02)
[2021-02-02 11:33] VITALS: BP 120/87; PULSE 74; TEMP 98
== END 2021-02-02 11:55 | disposition home or self-care (01) ==
LOC: FECT 08:20
PROVIDERS: ATTEND Psychiatry & Neurology Psychiatry
PROC: GZB4ZZZ Other Electroconvulsive Therapy (ICD-10-PCS; principal; 2021-02-02 10:30)
DX: F32.9 Major depressive disorder, single episode, unspecified (principal)
CPT/HCPCS: 90870; 94760

== ENCOUNTER 2021-02-09 06:12 | Day surgery (SDC) | payer OTHER ==
[2021-02-09 07:24] VITALS: BMI 19.5
[2021-02-09] MEDS ORDERED: KETAMINE HCL 500 MG/10 ML VIAL ONE (08:15)
[2021-02-09 09:29] VITALS: TEMP 98.2
[2021-02-09 09:50] VITALS: BP 128/82; PULSE 77
[2021-02-09] MEDS ORDERED: ACETAMINOPHEN 325 MG TABLET (FP) PO PRN (11:26)
[2021-02-09] MEDS ORDERED: LACTATED RINGERS SOLUTION 1,000 ML IV SCH (11:30)
== END 2021-02-09 10:50 | disposition home or self-care (01) ==
LOC: FECT 06:12
PROVIDERS: ATTEND Psychiatry & Neurology Psychiatry
PROC: GZB4ZZZ Other Electroconvulsive Therapy (ICD-10-PCS; principal; 2021-02-09 08:30)
DX: F32.9 Major depressive disorder, single episode, unspecified (principal)
CPT/HCPCS: 90870; 94760

== ENCOUNTER 2021-02-16 08:27 | Day surgery (SDC) | payer OTHER ==
[2021-02-16 10:08] VITALS: BMI 19.5
[2021-02-16] MEDS ORDERED: KETAMINE HCL 500 MG/10 ML VIAL ONE (11:39)
[2021-02-16 13:15] VITALS: TEMP 98
[2021-02-16 13:41] VITALS: BP 123/75; PULSE 104
== END 2021-02-16 13:45 | disposition home or self-care (01) ==
LOC: FECT 08:27
PROVIDERS: ATTEND Psychiatry & Neurology Psychiatry
PROC: GZB4ZZZ Other Electroconvulsive Therapy (ICD-10-PCS; principal; 2021-02-16 11:00)
DX: F32.9 Major depressive disorder, single episode, unspecified (principal)
CPT/HCPCS: 90870; 94760

== ENCOUNTER 2021-02-23 08:43 | Day surgery (SDC) | payer OTHER ==
[2021-02-23] MEDS ORDERED: SUCCINYLCHOLINE CHLORIDE 200 MG/10 ML SYRINGE ONE (10:18)
[2021-02-23] MEDS ORDERED: PROPOFOL 20 ML ONE (10:18)
[2021-02-23] MEDS ORDERED: KETAMINE HCL 500 MG/10 ML VIAL ONE (10:19)
[2021-02-23 11:39] VITALS: TEMP 98.1
[2021-02-23 12:01] VITALS: BP 136/77; PULSE 80
== END 2021-02-23 12:15 | disposition home or self-care (01) ==
LOC: FASU 08:43
PROVIDERS: ATTEND Psychiatry & Neurology Psychiatry
PROC: GZB4ZZZ Other Electroconvulsive Therapy (ICD-10-PCS; principal; 2021-02-23 10:00)
DX: F33.2 Major depressive disorder, recurrent severe without psychotic features (principal)
CPT/HCPCS: 90870; 93005; 94760

== ENCOUNTER 2021-03-02 10:22 | Day surgery (SDC) | payer OTHER ==
[2021-03-02 10:46] VITALS: BMI 20.1
[2021-03-02 11:01] LABS: HEMATOCRIT 40.1 % (35.4-49); HEMOGLOBIN 13.5 GM/dl (11.7-16.9); MCH 30.5 pg (25.7-33.7); MCHC 33.6 g/dl (32.0-35.9); MEAN CELL VOLUME 90.6 fl (80-96); MEAN PLT VOLUME 7.1 fl (7.5-11.1); PLATELET COUNT 334 10^3/uL (134-434); RBC 4.43 M/mm3 (4.00-5.60); RDW 12.8 % (11.9-15.9); WHITE BLOOD COUNT 7.1 K/mm3 (4.0-10.8)
[2021-03-02 11:20] LABS: ALBUMIN 4.1 g/dl (3.4-5.0); BILIRUBIN,TOTAL 0.5 mg/dl (0.2-1); CALCIUM 8.9 mg/dl (8.5-10); CREATININE 0.8 mg/dl (0.55-1.3); TOT PROT 6.7 g/dl (6.4-8.2)
[2021-03-02] MEDS ORDERED: KETAMINE HCL 500 MG/10 ML VIAL ONE (11:32)
[2021-03-02 12:56] VITALS: PULSE 92; TEMP 97.6
[2021-03-02 13:19] VITALS: BP 132/90
== END 2021-03-02 13:05 | disposition home or self-care (01) ==
LOC: FECT 10:22
PROVIDERS: ATTEND Psychiatry & Neurology Psychiatry
PROC: GZB4ZZZ Other Electroconvulsive Therapy (ICD-10-PCS; principal; 2021-03-02 11:30)
DX: F32.9 Major depressive disorder, single episode, unspecified (principal)
CPT/HCPCS: 36415; 80053; 83735; 85027; 90870; 94760

== ENCOUNTER 2021-03-16 07:34 | Day surgery (SDC) | payer OTHER ==
[2021-03-16 08:11] VITALS: TEMP 97.9; BMI 20.1
[2021-03-16] MEDS ORDERED: KETAMINE HCL 500 MG/10 ML VIAL ONE (08:58)
[2021-03-16 10:42] VITALS: BP 122/84; PULSE 87
== END 2021-03-16 11:30 | disposition home or self-care (01) ==
LOC: FECT 07:34
PROVIDERS: ATTEND Psychiatry & Neurology Psychiatry
PROC: GZB4ZZZ Other Electroconvulsive Therapy (ICD-10-PCS; principal; 2021-03-16 09:30)
DX: F32.9 Major depressive disorder, single episode, unspecified (principal)
CPT/HCPCS: 90870; 94760

== ENCOUNTER 2021-03-23 08:31 | Day surgery (SDC) | payer OTHER ==
[2021-03-17 09:12] VITALS: BMI 19.2
[2021-03-23 08:52] VITALS: TEMP 97.9
[2021-03-23] MEDS ORDERED: PROPOFOL 20 ML ONE (11:51)
[2021-03-23] MEDS ORDERED: SUCCINYLCHOLINE CHLORIDE 200 MG/10 ML SYRINGE ONE ×2 (11:51)
[2021-03-23] MEDS ORDERED: KETAMINE HCL 500 MG/10 ML VIAL ONE (11:52)
[2021-03-23 13:21] VITALS: BP 121/71; PULSE 89
== END 2021-03-23 14:20 | disposition home or self-care (01) ==
LOC: FECT 08:31
PROVIDERS: ATTEND Psychiatry & Neurology Psychiatry
PROC: GZB4ZZZ Other Electroconvulsive Therapy (ICD-10-PCS; principal; 2021-03-23 11:00)
DX: F32.9 Major depressive disorder, single episode, unspecified (principal)
CPT/HCPCS: 90870; 94760

== ENCOUNTER 2021-03-30 06:10 | Day surgery (SDC) | payer OTHER ==
[2021-03-24 17:43] VITALS: BMI 19.3
[2021-03-30] MEDS ORDERED: KETAMINE HCL 500 MG/10 ML VIAL ONE (07:37)
[2021-03-30 09:15] VITALS: TEMP 97.8
[2021-03-30 13:35] VITALS: BP 116/78; PULSE 84
== END 2021-03-30 13:00 | disposition home or self-care (01) ==
LOC: FASU 06:10
PROVIDERS: ATTEND Psychiatry & Neurology Psychiatry
PROC: GZB4ZZZ Other Electroconvulsive Therapy (ICD-10-PCS; principal; 2021-03-30 08:30)
DX: F33.2 Major depressive disorder, recurrent severe without psychotic features (principal)
CPT/HCPCS: 90870; 94760

== ENCOUNTER 2021-04-06 08:35 | Day surgery (SDC) | payer OTHER ==
[2021-03-30 13:41] VITALS: BMI 19.2
[2021-04-06] MEDS ORDERED: KETAMINE HCL 500 MG/10 ML VIAL ONE (09:51)
[2021-04-06 10:55] VITALS: TEMP 97.1
[2021-04-06 12:30] VITALS: BP 128/81; PULSE 76
== END 2021-04-06 12:32 | disposition home or self-care (01) ==
LOC: FECT 08:35
PROVIDERS: ATTEND Psychiatry & Neurology Psychiatry
PROC: GZB4ZZZ Other Electroconvulsive Therapy (ICD-10-PCS; principal; 2021-04-06 10:00)
DX: F32.9 Major depressive disorder, single episode, unspecified (principal)
CPT/HCPCS: 90870; 94760

== ENCOUNTER 2021-04-13 10:07 | Day surgery (SDC) | payer OTHER ==
[2021-04-13 10:27] VITALS: BMI 18.8
[2021-04-13] MEDS ORDERED: KETAMINE HCL 500 MG/10 ML VIAL ONE (11:19)
[2021-04-13] MEDS ORDERED: PROPOFOL 20 ML ONE (11:25)
[2021-04-13 12:50] VITALS: BP 122/80; PULSE 74; TEMP 98.4
== END 2021-04-13 13:35 | disposition home or self-care (01) ==
LOC: FECT 10:07
PROVIDERS: ATTEND Psychiatry & Neurology Psychiatry
PROC: GZB4ZZZ Other Electroconvulsive Therapy (ICD-10-PCS; principal; 2021-04-13 11:30)
DX: F32.9 Major depressive disorder, single episode, unspecified (principal)
CPT/HCPCS: 90870; 94760

== ENCOUNTER 2021-04-20 10:22 | Day surgery (SDC) | payer OTHER ==
[2021-04-20 11:44] VITALS: BMI 18.8
[2021-04-20] MEDS ORDERED: PROPOFOL 20 ML ONE (12:55)
[2021-04-20] MEDS ORDERED: KETAMINE HCL 500 MG/10 ML VIAL ONE (12:56)
[2021-04-20 14:09] VITALS: TEMP 98.1
[2021-04-20 14:43] VITALS: BP 133/87; PULSE 86
== END 2021-04-20 15:20 | disposition home or self-care (01) ==
LOC: FECT 10:22
PROVIDERS: ATTEND Psychiatry & Neurology Psychiatry
PROC: GZB4ZZZ Other Electroconvulsive Therapy (ICD-10-PCS; principal; 2021-04-20 12:30)
DX: F32.9 Major depressive disorder, single episode, unspecified (principal)
CPT/HCPCS: 90870; 94760

== ENCOUNTER 2021-04-27 10:00 | Day surgery (SDC) | payer OTHER ==
[2021-04-27 10:21] VITALS: BMI 18.7
[2021-04-27] MEDS ORDERED: KETAMINE HCL 500 MG/10 ML VIAL ONE (10:39)
[2021-04-27 12:27] VITALS: TEMP 97.9
[2021-04-27 12:38] VITALS: BP 122/56; PULSE 92
== END 2021-04-27 12:40 | disposition home or self-care (01) ==
LOC: FECT 10:00
PROVIDERS: ATTEND Psychiatry & Neurology Psychiatry
PROC: GZB4ZZZ Other Electroconvulsive Therapy (ICD-10-PCS; principal; 2021-04-27 11:30)
DX: F32.9 Major depressive disorder, single episode, unspecified (principal)
CPT/HCPCS: 90870; 94760

== ENCOUNTER 2021-05-03 12:32 | Day surgery (SDC) | payer OTHER ==
[2021-04-28 10:28] VITALS: BMI 18.7
[2021-05-03] MEDS ORDERED: KETAMINE HCL 500 MG/10 ML VIAL ONE (14:49)
[2021-05-03 16:14] VITALS: TEMP 98.1
[2021-05-03 16:56] VITALS: BP 131/84; PULSE 74
== END 2021-05-03 16:55 | disposition home or self-care (01) ==
LOC: FECT 12:32
PROVIDERS: ATTEND Psychiatry & Neurology Psychiatry
PROC: GZB4ZZZ Other Electroconvulsive Therapy (ICD-10-PCS; principal; 2021-05-03 13:30)
DX: F32.9 Major depressive disorder, single episode, unspecified (principal)
CPT/HCPCS: 90870; 94760

== ENCOUNTER 2021-05-18 09:33 | Day surgery (SDC) | payer OTHER ==
[2021-05-18 10:07] VITALS: BMI 18.5
[2021-05-18] MEDS ORDERED: KETAMINE HCL 500 MG/10 ML VIAL ONE (10:19)
[2021-05-18 11:43] VITALS: TEMP 97.8
[2021-05-18 12:03] VITALS: BP 118/76; PULSE 72
== END 2021-05-18 12:05 | disposition home or self-care (01) ==
LOC: FECT 09:33
PROVIDERS: ATTEND Psychiatry & Neurology Psychiatry
PROC: GZB4ZZZ Other Electroconvulsive Therapy (ICD-10-PCS; principal; 2021-05-18 10:30)
DX: F32.9 Major depressive disorder, single episode, unspecified (principal)
CPT/HCPCS: 90870; 94760

== ENCOUNTER 2021-05-25 07:22 | Day surgery (SDC) | payer OTHER ==
[2021-05-25 07:54] VITALS: BMI 18.6
[2021-05-25 10:41] VITALS: TEMP 97.8
[2021-05-25 11:23] VITALS: BP 111/68; PULSE 99
== END 2021-05-25 11:50 | disposition home or self-care (01) ==
LOC: FECT 07:22
PROVIDERS: ATTEND Psychiatry & Neurology Psychiatry
PROC: GZB4ZZZ Other Electroconvulsive Therapy (ICD-10-PCS; principal; 2021-05-25 09:30)
DX: F32.9 Major depressive disorder, single episode, unspecified (principal)
CPT/HCPCS: 90870; 94760

== ENCOUNTER 2021-06-02 05:47 | Day surgery (SDC) | payer OTHER ==
[2021-06-02 07:34] VITALS: BMI 18.6
[2021-06-02] MEDS ORDERED: PROPOFOL 20 ML ONE (08:14)
[2021-06-02] MEDS ORDERED: SUCCINYLCHOLINE CHLORIDE 200 MG/10 ML SYRINGE ONE (08:14)
[2021-06-02] MEDS ORDERED: KETAMINE HCL 500 MG/10 ML VIAL ONE (08:32)
[2021-06-02 09:31] VITALS: TEMP 97.8
[2021-06-02 12:23] VITALS: BP 121/76; PULSE 80
== END 2021-06-02 10:30 | disposition home or self-care (01) ==
LOC: FECT 05:47
PROVIDERS: ATTEND Psychiatry & Neurology Psychiatry
PROC: GZB4ZZZ Other Electroconvulsive Therapy (ICD-10-PCS; principal; 2021-06-02 07:30)
DX: F32.9 Major depressive disorder, single episode, unspecified (principal)
CPT/HCPCS: 90870; 94760; C9803; U0003; U0005

== ENCOUNTER 2021-06-07 07:36 | Day surgery (SDC) | payer OTHER ==
[2021-06-07 08:25] VITALS: BMI 18.2
[2021-06-07] MEDS ORDERED: KETAMINE HCL 500 MG/10 ML VIAL ONE (08:35)
[2021-06-07 08:38] VITALS: TEMP 97.8
[2021-06-07 10:17] VITALS: BP 132/72; PULSE 88
== END 2021-06-07 11:05 | disposition home or self-care (01) ==
LOC: FECT 07:36
PROVIDERS: ATTEND Psychiatry & Neurology Psychiatry
PROC: GZB4ZZZ Other Electroconvulsive Therapy (ICD-10-PCS; principal; 2021-06-07 08:45)
DX: F32.9 Major depressive disorder, single episode, unspecified (principal)
CPT/HCPCS: 90870; 94760

== ENCOUNTER 2021-06-15 07:51 | Day surgery (SDC) | payer OTHER ==
[2021-06-15 08:17] VITALS: BMI 18.1
[2021-06-15] MEDS ORDERED: KETAMINE HCL 500 MG/10 ML VIAL ONE (08:53)
[2021-06-15 10:10] VITALS: TEMP 98.1
[2021-06-15 10:39] VITALS: BP 119/84; PULSE 84
== END 2021-06-15 11:00 | disposition home or self-care (01) ==
LOC: FECT 07:51 → FASU 07:51
PROVIDERS: ATTEND Psychiatry & Neurology Psychiatry
PROC: GZB4ZZZ Other Electroconvulsive Therapy (ICD-10-PCS; principal; 2021-06-15 10:00)
DX: F32.9 Major depressive disorder, single episode, unspecified (principal)
CPT/HCPCS: 90870; 94760

== ENCOUNTER 2021-06-22 08:43 | Day surgery (SDC) | payer OTHER ==
[2021-06-22 08:56] VITALS: BMI 19.0
[2021-06-22] MEDS ORDERED: SUCCINYLCHOLINE CHLORIDE 200 MG/10 ML SYRINGE ONE ×2 (09:29)
[2021-06-22] MEDS ORDERED: KETAMINE HCL 500 MG/10 ML VIAL ONE (09:30)
[2021-06-22 10:41] VITALS: PULSE 87; TEMP 98.7
[2021-06-22 11:01] VITALS: BP 128/81
== END 2021-06-22 11:30 | disposition home or self-care (01) ==
LOC: FECT 08:43
PROVIDERS: ATTEND Psychiatry & Neurology Psychiatry
PROC: GZB4ZZZ Other Electroconvulsive Therapy (ICD-10-PCS; principal; 2021-06-22 09:30)
DX: F32.9 Major depressive disorder, single episode, unspecified (principal)
CPT/HCPCS: 90870; 94760

== ENCOUNTER 2021-06-29 10:06 | Day surgery (SDC) | payer OTHER ==
[2021-06-29 10:55] VITALS: BMI 18.2
[2021-06-29] MEDS ORDERED: KETAMINE HCL 500 MG/10 ML VIAL ONE (11:34)
[2021-06-29] MEDS ORDERED: SUCCINYLCHOLINE CHLORIDE 200 MG/10 ML SYRINGE ONE (11:41)
[2021-06-29 12:56] VITALS: TEMP 98
[2021-06-29 13:58] VITALS: BP 119/78; PULSE 72
== END 2021-06-29 14:00 | disposition home or self-care (01) ==
LOC: FECT 10:06
PROVIDERS: ATTEND Psychiatry & Neurology Psychiatry
PROC: GZB4ZZZ Other Electroconvulsive Therapy (ICD-10-PCS; principal; 2021-06-29 11:30)
DX: F32.9 Major depressive disorder, single episode, unspecified (principal)
CPT/HCPCS: 90870; 94760

== ENCOUNTER 2021-07-05 07:26 | Day surgery (SDC) | payer OTHER ==
[2021-07-05 08:20] VITALS: BMI 18.0
[2021-07-05] MEDS ORDERED: KETAMINE HCL 500 MG/10 ML VIAL ONE (09:01)
[2021-07-05] MEDS ORDERED: PROPOFOL 20 ML ONE (09:07)
[2021-07-05 10:28] VITALS: TEMP 97.8
[2021-07-05 11:29] VITALS: BP 112/82; PULSE 74
== END 2021-07-05 11:30 | disposition home or self-care (01) ==
LOC: FECT 07:26
PROVIDERS: ATTEND Psychiatry & Neurology Psychiatry
PROC: GZB4ZZZ Other Electroconvulsive Therapy (ICD-10-PCS; principal; 2021-07-05 09:00)
DX: F32.9 Major depressive disorder, single episode, unspecified (principal)
CPT/HCPCS: 90870; 94760

== ENCOUNTER 2021-07-13 10:03 | Day surgery (SDC) | payer OTHER ==
[2021-07-13 10:29] VITALS: TEMP 98.4
[2021-07-13 10:30] VITALS: BMI 17.8
[2021-07-13] MEDS ORDERED: KETAMINE HCL 500 MG/10 ML VIAL ONE (12:02)
[2021-07-13 14:16] VITALS: PULSE 86
[2021-07-13 14:20] VITALS: BP 121/71
== END 2021-07-13 14:00 | disposition home or self-care (01) ==
LOC: FECT 10:03
PROVIDERS: ATTEND Psychiatry & Neurology Psychiatry
PROC: GZB4ZZZ Other Electroconvulsive Therapy (ICD-10-PCS; principal; 2021-07-13 11:00)
DX: F32.9 Major depressive disorder, single episode, unspecified (principal)
CPT/HCPCS: 90870; 94760

== ENCOUNTER 2021-07-20 08:06 | Day surgery (SDC) | payer OTHER ==
[2021-07-20 08:36] VITALS: BMI 17.7
[2021-07-20] MEDS ORDERED: KETAMINE HCL 500 MG/10 ML VIAL ONE (09:47)
[2021-07-20 10:55] VITALS: TEMP 97.8
[2021-07-20 11:24] VITALS: BP 122/85; PULSE 79
== END 2021-07-20 12:15 | disposition home or self-care (01) ==
LOC: FECT 08:06
PROVIDERS: ATTEND Psychiatry & Neurology Psychiatry
PROC: GZB4ZZZ Other Electroconvulsive Therapy (ICD-10-PCS; principal; 2021-07-20 10:00)
DX: F32.9 Major depressive disorder, single episode, unspecified (principal)
CPT/HCPCS: 90870; 94760

== ENCOUNTER 2021-07-27 06:17 | Day surgery (SDC) | payer OTHER ==
[2021-07-27 07:10] VITALS: BMI 18.3
[2021-07-27] MEDS ORDERED: KETAMINE HCL 500 MG/10 ML VIAL ONE (08:27)
[2021-07-27 09:30] VITALS: TEMP 98
[2021-07-27 10:02] VITALS: BP 114/72; PULSE 72
== END 2021-07-27 10:03 | disposition home or self-care (01) ==
LOC: FECT 06:17
PROVIDERS: ATTEND Psychiatry & Neurology Psychiatry
PROC: GZB4ZZZ Other Electroconvulsive Therapy (ICD-10-PCS; principal; 2021-07-27 08:00)
DX: F32.9 Major depressive disorder, single episode, unspecified (principal)
CPT/HCPCS: 90870; 94760

== ENCOUNTER 2021-08-03 06:47 | Day surgery (SDC) | payer OTHER ==
[2021-08-03 07:15] VITALS: BMI 18.4
[2021-08-03] MEDS ORDERED: KETAMINE HCL 500 MG/10 ML VIAL ONE (07:40)
[2021-08-03 08:18] VITALS: TEMP 97.7
[2021-08-03 08:21] VITALS: PULSE 84
[2021-08-03 09:06] VITALS: BP 121/84
== END 2021-08-03 09:30 | disposition home or self-care (01) ==
LOC: FECT 06:47
PROVIDERS: ATTEND Psychiatry & Neurology Psychiatry
PROC: GZB4ZZZ Other Electroconvulsive Therapy (ICD-10-PCS; principal; 2021-08-03 08:30)
DX: F32.9 Major depressive disorder, single episode, unspecified (principal)
CPT/HCPCS: 90870; 94760

== ENCOUNTER 2021-08-10 08:20 | Day surgery (SDC) | payer OTHER ==
[2021-08-10 08:44] VITALS: BMI 18.3
[2021-08-10] MEDS ORDERED: KETAMINE HCL 500 MG/10 ML VIAL ONE (09:58)
[2021-08-10 10:55] VITALS: TEMP 97.8
[2021-08-10 11:30] VITALS: BP 131/74; PULSE 74
== END 2021-08-10 12:00 | disposition home or self-care (01) ==
LOC: FECT 08:20
PROVIDERS: ATTEND Psychiatry & Neurology Psychiatry
PROC: GZB4ZZZ Other Electroconvulsive Therapy (ICD-10-PCS; principal; 2021-08-10 10:00)
DX: F32.9 Major depressive disorder, single episode, unspecified (principal)
CPT/HCPCS: 90870; 94760

== ENCOUNTER 2021-08-17 06:34 | Day surgery (SDC) | payer OTHER ==
[2021-08-17 07:22] VITALS: BMI 18.7
[2021-08-17] MEDS ORDERED: PROPOFOL 20 ML ONE (09:05)
[2021-08-17] MEDS ORDERED: KETAMINE HCL 200 MG/20 ML VIAL ONE (09:07)
[2021-08-17 09:57] VITALS: BP 125/81; PULSE 78; TEMP 97.8
== END 2021-08-17 11:00 | disposition home or self-care (01) ==
LOC: FECT 06:34
PROVIDERS: ATTEND Psychiatry & Neurology Psychiatry
PROC: GZB4ZZZ Other Electroconvulsive Therapy (ICD-10-PCS; principal; 2021-08-17 10:00)
DX: F32.9 Major depressive disorder, single episode, unspecified (principal)
CPT/HCPCS: 90870; 94760

== ENCOUNTER 2021-08-24 06:26 | Day surgery (SDC) | payer OTHER ==
[2021-08-22 16:19] VITALS: BMI 45.5
[2021-08-24] MEDS ORDERED: KETAMINE HCL 500 MG/10 ML VIAL ONE (07:42)
[2021-08-24 08:58] VITALS: PULSE 87; TEMP 98
[2021-08-24 10:48] VITALS: BP 116/72
== END 2021-08-24 10:15 | disposition home or self-care (01) ==
LOC: FECT 06:26
PROVIDERS: ATTEND Psychiatry & Neurology Psychiatry
PROC: GZB4ZZZ Other Electroconvulsive Therapy (ICD-10-PCS; principal; 2021-08-24 08:30)
DX: F32.9 Major depressive disorder, single episode, unspecified (principal)
CPT/HCPCS: 90870; 94760

== ENCOUNTER 2021-08-31 06:07 | Day surgery (SDC) | payer OTHER ==
[2021-08-31 07:08] VITALS: BMI 18.5
[2021-08-31] MEDS ORDERED: KETAMINE HCL 500 MG/10 ML VIAL ONE (07:34)
[2021-08-31 08:38] VITALS: TEMP 98
[2021-08-31 08:58] VITALS: BP 100/61; PULSE 94
== END 2021-08-31 09:59 | disposition home or self-care (01) ==
LOC: FECT 06:07
PROVIDERS: ATTEND Psychiatry & Neurology Psychiatry
PROC: GZB4ZZZ Other Electroconvulsive Therapy (ICD-10-PCS; principal; 2021-08-31 08:00)
DX: F32.9 Major depressive disorder, single episode, unspecified (principal)
CPT/HCPCS: 90870; 93005; 94760

== ENCOUNTER 2021-09-07 08:06 | Day surgery (SDC) | payer OTHER ==
[2021-08-31 18:42] VITALS: BMI 18.6
[2021-09-07 08:50] LABS: ALBUMIN 4.4 g/dl (3.4-5.0); BILIRUBIN,TOTAL 0.4 mg/dl (0.2-1); CALCIUM 9.4 mg/dl (8.5-10); CREATININE 1.1 mg/dl (0.55-1.3); MAGNESIUM 2.1 mg/dL (1.8-2.4); TOT PROT 6.8 g/dl (6.4-8.2)
[2021-09-07 09:57] LABS: BASO % 0.9 % (0-2.0); EOS % 3.8 % (0-4.5); HEMATOCRIT 41.6 % (35.4-49); HEMOGLOBIN 14.1 GM/dL (11.7-16.9); LYMPH % 19.4 % (8-40); MCH 31.1 pg (25.7-33.7); MEAN CELL VOLUME 91.5 fl (80-96); MEAN PLT VOLUME 7.4 fl (7.5-11.1); MONO % 8.1 % (3.8-10.2); NEUT % 67.8 % (42.8-82.8); PLATELET COUNT 321 10^3/uL (134-434); RBC 4.55 M/mm3 (4.00-5.60); RDW 13.5 % (11.9-15.9)
[2021-09-07] MEDS ORDERED: KETAMINE HCL 500 MG/10 ML VIAL ONE (11:01)
[2021-09-07 11:55] VITALS: PULSE 74
[2021-09-07 12:22] VITALS: BP 122/80; TEMP 98.1
== END 2021-09-07 12:20 | disposition home or self-care (01) ==
LOC: FECT 08:06
PROVIDERS: ATTEND Psychiatry & Neurology Psychiatry
PROC: GZB4ZZZ Other Electroconvulsive Therapy (ICD-10-PCS; principal; 2021-09-07 11:08)
DX: F33.2 Major depressive disorder, recurrent severe without psychotic features (principal)
CPT/HCPCS: 36415; 80053; 83735; 85025; 90870; 94760

== ENCOUNTER 2021-09-14 08:39 | Day surgery (SDC) | payer OTHER ==
[2021-09-08 17:27] VITALS: BMI 18.6
[2021-09-14] MEDS ORDERED: KETAMINE HCL 500 MG/10 ML VIAL ONE (10:49)
[2021-09-14] MEDS ORDERED: KETOROLAC TROMETHAMINE 30 MG/1 ML VIAL ONE ×2 (10:49→10:53)
[2021-09-14] MEDS ORDERED: LIDOCAINE HCL/PF 2% SDV 5ML VIAL ONE (10:53)
[2021-09-14] MEDS ORDERED: PROPOFOL 20 ML ONE (10:53)
[2021-09-14] MEDS ORDERED: ONDANSETRON 4 MG/2 ML VIAL ONE (10:53)
[2021-09-14] MEDS ORDERED: SUCCINYLCHOLINE CHLORIDE 200 MG/10 ML SYRINGE ONE (10:57)
[2021-09-14] MEDS ORDERED: ACETAMINOPHEN 325 MG TABLET (FP) PO PRN (12:00)
[2021-09-14 12:23] VITALS: BP 122/80; PULSE 84; TEMP 97.9
== END 2021-09-14 12:40 | disposition home or self-care (01) ==
LOC: FECT 08:39
PROVIDERS: ATTEND Psychiatry & Neurology Psychiatry
PROC: GZB4ZZZ Other Electroconvulsive Therapy (ICD-10-PCS; principal; 2021-09-14 10:30)
DX: F32.9 Major depressive disorder, single episode, unspecified (principal)
CPT/HCPCS: 90870; 94760

== ENCOUNTER 2021-09-21 09:50 | Day surgery (SDC) | payer OTHER ==
[2021-09-21 10:17] VITALS: BMI 18.3
[2021-09-21] MEDS ORDERED: KETAMINE HCL 500 MG/10 ML VIAL ONE (10:50)
[2021-09-21] MEDS ORDERED: SUCCINYLCHOLINE CHLORIDE 200 MG/10 ML SYRINGE ONE (11:01)
[2021-09-21] MEDS ORDERED: ONDANSETRON 4 MG/2 ML VIAL ONE (11:01)
[2021-09-21] MEDS ORDERED: KETOROLAC TROMETHAMINE 30 MG/1 ML VIAL ONE (11:01)
[2021-09-21 11:23] VITALS: TEMP 98
[2021-09-21 12:36] VITALS: BP 110/74; PULSE 74
== END 2021-09-21 13:00 | disposition home or self-care (01) ==
LOC: FECT 09:50
PROVIDERS: ATTEND Psychiatry & Neurology Psychiatry
PROC: GZB4ZZZ Other Electroconvulsive Therapy (ICD-10-PCS; principal; 2021-09-21 11:05)
DX: F32.9 Major depressive disorder, single episode, unspecified (principal)
CPT/HCPCS: 90870; 94760

== ENCOUNTER 2021-09-28 09:18 | Day surgery (SDC) | payer OTHER ==
[2021-09-28 09:37] VITALS: BMI 18.1
[2021-09-28] MEDS ORDERED: KETAMINE HCL 500 MG/10 ML VIAL ONE (11:01)
[2021-09-28] MEDS ORDERED: SUCCINYLCHOLINE CHLORIDE 200 MG/10 ML SYRINGE ONE (11:03)
[2021-09-28 11:53] VITALS: TEMP 98.4
[2021-09-28 13:09] VITALS: BP 121/82; PULSE 84
== END 2021-09-28 13:09 | disposition home or self-care (01) ==
LOC: FECT 09:18
PROVIDERS: ATTEND Psychiatry & Neurology Psychiatry
PROC: GZB4ZZZ Other Electroconvulsive Therapy (ICD-10-PCS; principal; 2021-09-28 11:06)
DX: F32.9 Major depressive disorder, single episode, unspecified (principal)
CPT/HCPCS: 90870; 94760

== ENCOUNTER 2021-10-09 11:10 | Day surgery (SDC) | payer OTHER ==
[2021-10-02 16:14] VITALS: BMI 18.1
[2021-10-09] MEDS ORDERED: KETAMINE HCL 500 MG/10 ML VIAL ONE (12:47)
[2021-10-09 14:17] VITALS: TEMP 98
[2021-10-09 15:04] VITALS: BP 121/81; PULSE 69
== END 2021-10-09 14:45 | disposition home or self-care (01) ==
LOC: FECT 11:10
PROVIDERS: ATTEND Psychiatry & Neurology Psychiatry
PROC: GZB4ZZZ Other Electroconvulsive Therapy (ICD-10-PCS; principal; 2021-10-09 13:10)
DX: F33.2 Major depressive disorder, recurrent severe without psychotic features (principal)
CPT/HCPCS: 90870; 94760

== ENCOUNTER 2021-10-19 08:28 | Day surgery (SDC) | payer OTHER ==
[2021-10-19 09:48] VITALS: BMI 18.3
[2021-10-19] MEDS ORDERED: KETAMINE HCL 500 MG/10 ML VIAL ONE ×2 (10:02→10:13)
[2021-10-19 10:51] VITALS: TEMP 97.7
[2021-10-19 14:03] VITALS: BP 116/72; PULSE 71
== END 2021-10-19 14:00 | disposition home or self-care (01) ==
LOC: FECT 08:28
PROVIDERS: ATTEND Psychiatry & Neurology Psychiatry
PROC: GZB4ZZZ Other Electroconvulsive Therapy (ICD-10-PCS; principal; 2021-10-19 10:30)
DX: F32.9 Major depressive disorder, single episode, unspecified (principal)
CPT/HCPCS: 90870; 94760

== ENCOUNTER 2021-10-26 07:01 | Day surgery (SDC) | payer OTHER ==
[2021-10-26 07:46] VITALS: BMI 18.1
[2021-10-26] MEDS ORDERED: KETAMINE HCL 500 MG/10 ML VIAL ONE (08:33)
[2021-10-26 09:36] VITALS: PULSE 76; TEMP 97.7
[2021-10-26 10:05] VITALS: BP 122/87
== END 2021-10-26 11:50 | disposition home or self-care (01) ==
LOC: FECT 07:01
PROVIDERS: ATTEND Psychiatry & Neurology Psychiatry
PROC: GZB4ZZZ Other Electroconvulsive Therapy (ICD-10-PCS; principal; 2021-10-26 08:45)
DX: F32.9 Major depressive disorder, single episode, unspecified (principal)
CPT/HCPCS: 90870; 94760

== ENCOUNTER 2021-11-02 09:03 | Day surgery (SDC) | payer OTHER ==
[2021-10-31 16:32] VITALS: BMI 18.2
[2021-11-02] MEDS ORDERED: KETAMINE HCL 500 MG/10 ML VIAL ONE (12:02)
[2021-11-02] MEDS ORDERED: PROPOFOL 20 ML ONE (12:04)
[2021-11-02 13:50] VITALS: TEMP 97.5
[2021-11-02 13:52] VITALS: BP 118/84; PULSE 77
== END 2021-11-02 13:55 | disposition home or self-care (01) ==
LOC: FECT 09:03
PROVIDERS: ATTEND Psychiatry & Neurology Psychiatry
PROC: GZB4ZZZ Other Electroconvulsive Therapy (ICD-10-PCS; principal; 2021-11-02 12:17)
DX: F33.2 Major depressive disorder, recurrent severe without psychotic features (principal)
CPT/HCPCS: 90870; 94760

== ENCOUNTER 2021-11-09 07:17 | Day surgery (SDC) | payer OTHER ==
[2021-11-09 07:48] VITALS: BMI 18.3
[2021-11-09] MEDS ORDERED: KETAMINE HCL 500 MG/10 ML VIAL ONE (08:41)
[2021-11-09] MEDS ORDERED: KETOROLAC TROMETHAMINE 30 MG/1 ML VIAL ONE (08:56)
[2021-11-09] MEDS ORDERED: ONDANSETRON 4 MG/2 ML VIAL ONE (08:56)
[2021-11-09 10:41] VITALS: BP 123/80; PULSE 78; TEMP 97.9
== END 2021-11-09 11:30 | disposition home or self-care (01) ==
LOC: FECT 07:17
PROVIDERS: ATTEND Psychiatry & Neurology Psychiatry
PROC: GZB4ZZZ Other Electroconvulsive Therapy (ICD-10-PCS; principal; 2021-11-09 08:52)
DX: F32.9 Major depressive disorder, single episode, unspecified (principal)
CPT/HCPCS: 90870; 94760

== ENCOUNTER 2021-11-16 10:23 | Day surgery (SDC) | payer OTHER ==
[2021-11-16 11:02] VITALS: TEMP 97.8; BMI 18.2
[2021-11-16] MEDS ORDERED: KETAMINE HCL 500 MG/10 ML VIAL ONE (12:03)
[2021-11-16 13:18] VITALS: PULSE 68
[2021-11-16 14:43] VITALS: BP 114/72
== END 2021-11-16 14:20 | disposition home or self-care (01) ==
LOC: FECT 10:23
PROVIDERS: ATTEND Psychiatry & Neurology Psychiatry
PROC: GZB4ZZZ Other Electroconvulsive Therapy (ICD-10-PCS; principal; 2021-11-16 11:30)
DX: F32.9 Major depressive disorder, single episode, unspecified (principal)
CPT/HCPCS: 90870; 94760

== ENCOUNTER 2021-11-23 08:13 | Day surgery (SDC) | payer OTHER ==
[2021-11-23 08:39] VITALS: BMI 18.2
[2021-11-23 10:39] VITALS: TEMP 97.7
[2021-11-23 11:26] VITALS: BP 112/71; PULSE 77
== END 2021-11-23 12:10 | disposition home or self-care (01) ==
LOC: FECT 08:13
PROVIDERS: ATTEND Psychiatry & Neurology Psychiatry
PROC: GZB4ZZZ Other Electroconvulsive Therapy (ICD-10-PCS; principal; 2021-11-23 09:57)
DX: F33.2 Major depressive disorder, recurrent severe without psychotic features (principal)
CPT/HCPCS: 90870; 94760

== ENCOUNTER 2021-11-30 06:34 | Day surgery (SDC) | payer OTHER ==
[2021-11-30 07:16] VITALS: BMI 18.3
[2021-11-30] MEDS ORDERED: KETAMINE HCL 500 MG/10 ML VIAL ONE (07:46)
[2021-11-30 09:25] VITALS: TEMP 97.7
[2021-11-30 10:02] VITALS: BP 120/76; PULSE 80
== END 2021-11-30 10:06 | disposition home or self-care (01) ==
LOC: FECT 06:34
PROVIDERS: ATTEND Psychiatry & Neurology Psychiatry
PROC: GZB4ZZZ Other Electroconvulsive Therapy (ICD-10-PCS; principal; 2021-11-30 08:15)
DX: F32.9 Major depressive disorder, single episode, unspecified (principal)
CPT/HCPCS: 90870; 94760

== ENCOUNTER 2021-12-07 07:06 | Day surgery (SDC) | payer OTHER ==
[2021-12-07 07:53] VITALS: BMI 18.3
[2021-12-07 10:09] VITALS: PULSE 71; TEMP 97.6
[2021-12-07 10:46] VITALS: BP 108/72
== END 2021-12-07 11:30 | disposition home or self-care (01) ==
LOC: FECT 07:06
PROVIDERS: ATTEND Psychiatry & Neurology Psychiatry
PROC: GZB4ZZZ Other Electroconvulsive Therapy (ICD-10-PCS; principal; 2021-12-07 09:17)
DX: F32.9 Major depressive disorder, single episode, unspecified (principal)
CPT/HCPCS: 90870; 94760

== ENCOUNTER 2021-12-14 09:16 | Day surgery (SDC) | payer OTHER ==
[2021-12-14 09:47] VITALS: BMI 18.1
[2021-12-14] MEDS ORDERED: KETAMINE HCL 500 MG/10 ML VIAL ONE (10:43)
[2021-12-14 11:48] VITALS: PULSE 76; TEMP 97.7
[2021-12-15 11:45] VITALS: BP 124/67
== END 2021-12-14 11:45 | disposition home or self-care (01) ==
LOC: FECT 09:16
PROVIDERS: ATTEND Psychiatry & Neurology Psychiatry
PROC: GZB4ZZZ Other Electroconvulsive Therapy (ICD-10-PCS; principal; 2021-12-14 11:00)
DX: F32.9 Major depressive disorder, single episode, unspecified (principal)
CPT/HCPCS: 90870; 94760

== ENCOUNTER 2021-12-21 08:32 | Day surgery (SDC) | payer OTHER ==
[2021-12-21 09:31] VITALS: BMI 18.4
[2021-12-21] MEDS ORDERED: KETAMINE HCL 500 MG/10 ML VIAL ONE (09:47)
[2021-12-21 11:14] VITALS: PULSE 87
[2021-12-21 11:29] VITALS: BP 124/80; TEMP 98
== END 2021-12-21 12:05 | disposition home or self-care (01) ==
LOC: FECT 08:32
PROVIDERS: ATTEND Psychiatry & Neurology Psychiatry
PROC: GZB4ZZZ Other Electroconvulsive Therapy (ICD-10-PCS; principal; 2021-12-21 09:56)
DX: F32.9 Major depressive disorder, single episode, unspecified (principal)
CPT/HCPCS: 90870; 94760

== ENCOUNTER 2021-12-28 09:46 | Day surgery (SDC) | payer OTHER ==
[2021-12-25 09:28] VITALS: BMI 18.3
[2021-12-28 12:49] VITALS: PULSE 72
[2021-12-28 12:50] VITALS: BP 133/86; TEMP 97.9
== END 2021-12-28 12:50 | disposition home or self-care (01) ==
LOC: FECT 09:46
PROVIDERS: ATTEND Psychiatry & Neurology Psychiatry
PROC: GZB4ZZZ Other Electroconvulsive Therapy (ICD-10-PCS; principal; 2021-12-28 10:50)
DX: F32.9 Major depressive disorder, single episode, unspecified (principal)
CPT/HCPCS: 90870; 94760

== ENCOUNTER 2022-01-04 08:45 | Day surgery (SDC) | payer OTHER ==
[2021-12-28 17:03] VITALS: BMI 18.3
[2022-01-04] MEDS ORDERED: KETAMINE HCL 500 MG/10 ML VIAL ONE (09:45)
[2022-01-04 10:20] VITALS: TEMP 97.3
[2022-01-04 11:16] VITALS: BP 133/83; PULSE 88
== END 2022-01-04 11:50 | disposition home or self-care (01) ==
LOC: FECT 08:45
PROVIDERS: ATTEND Psychiatry & Neurology Psychiatry
PROC: GZB4ZZZ Other Electroconvulsive Therapy (ICD-10-PCS; principal; 2022-01-04 09:54)
DX: F32.9 Major depressive disorder, single episode, unspecified (principal)
CPT/HCPCS: 90870; 94760

== ENCOUNTER 2022-01-11 07:53 | Day surgery (SDC) | payer OTHER ==
[2022-01-05 16:27] VITALS: BMI 18.3
[2022-01-11] MEDS ORDERED: KETAMINE HCL 500 MG/10 ML VIAL ONE (10:07)
[2022-01-11] MEDS ORDERED: PROPOFOL 20 ML ONE (10:07)
[2022-01-11] MEDS ORDERED: SUCCINYLCHOLINE CHLORIDE 200 MG/10 ML SYRINGE ONE (10:08)
[2022-01-11] MEDS ORDERED: ONDANSETRON 4 MG/2 ML VIAL ONE (10:12)
[2022-01-11] MEDS ORDERED: DEXAMETHASONE SOD PHOSPHATE 4 MG/1 ML VIAL ONE (10:12)
[2022-01-11] MEDS ORDERED: LACTATED RINGERS SOLUTION 1,000 ML IV SCH (10:45)
[2022-01-11 11:20] VITALS: TEMP 98
[2022-01-11 12:35] VITALS: BP 122/84; PULSE 73
== END 2022-01-11 12:00 | disposition home or self-care (01) ==
LOC: FECT 07:53
PROVIDERS: ATTEND Psychiatry & Neurology Psychiatry
PROC: GZB4ZZZ Other Electroconvulsive Therapy (ICD-10-PCS; principal; 2022-01-11 10:16)
DX: F32.9 Major depressive disorder, single episode, unspecified (principal)
CPT/HCPCS: 90870; 94760

== ENCOUNTER 2022-01-18 09:15 | Day surgery (SDC) | payer OTHER ==
[2022-01-18 09:59] VITALS: BMI 18.4
[2022-01-18] MEDS ORDERED: SUCCINYLCHOLINE CHLORIDE 200 MG/10 ML SYRINGE ONE (11:48)
[2022-01-18] MEDS ORDERED: KETAMINE HCL 500 MG/10 ML VIAL ONE (11:49)
[2022-01-18 12:44] VITALS: TEMP 98.2
[2022-01-18 13:06] VITALS: BP 131/79; PULSE 85
[2022-01-18] MEDS ORDERED: AMINO ACIDS/PROTEIN HYDROLYS 30 ML LIQUID.PKT PO SCH (17:30)
== END 2022-01-18 13:30 | disposition home or self-care (01) ==
LOC: FECT 09:15
PROVIDERS: ATTEND Psychiatry & Neurology Psychiatry
PROC: GZB4ZZZ Other Electroconvulsive Therapy (ICD-10-PCS; principal; 2022-01-18 11:52)
DX: F32.9 Major depressive disorder, single episode, unspecified (principal)
CPT/HCPCS: 90870; 94760

== ENCOUNTER 2022-01-25 09:27 | Day surgery (SDC) | payer OTHER ==
[2022-01-19 14:29] VITALS: BMI 18.4
[2022-01-25] MEDS ORDERED: KETAMINE HCL 500 MG/10 ML VIAL ONE (10:49)
[2022-01-25 11:16] VITALS: TEMP 98
[2022-01-25 13:35] VITALS: BP 121/71; PULSE 73
== END 2022-01-25 13:10 | disposition home or self-care (01) ==
LOC: FECT 09:27
PROVIDERS: ATTEND Psychiatry & Neurology Psychiatry
PROC: GZB4ZZZ Other Electroconvulsive Therapy (ICD-10-PCS; principal; 2022-01-25 10:58)
DX: F32.A Depression, unspecified (principal)
CPT/HCPCS: 90870; 94760

== ENCOUNTER 2022-02-01 06:20 | Day surgery (SDC) | payer OTHER ==
[2022-01-29 14:50] VITALS: BMI 18.5
[2022-02-01] MEDS ORDERED: KETAMINE HCL 500 MG/10 ML VIAL ONE (08:31)
[2022-02-01 09:36] VITALS: TEMP 97.5
[2022-02-01 10:20] VITALS: BP 118/66; PULSE 90
== END 2022-02-01 10:15 | disposition home or self-care (01) ==
LOC: FECT 06:20
PROVIDERS: ATTEND Psychiatry & Neurology Psychiatry
PROC: GZB4ZZZ Other Electroconvulsive Therapy (ICD-10-PCS; principal; 2022-02-01 08:44)
DX: F32.A Depression, unspecified (principal)
CPT/HCPCS: 90870; 94760

== ENCOUNTER 2022-02-09 06:50 | Day surgery (SDC) | payer OTHER ==
[2022-02-07 15:20] VITALS: BMI 18.4
[2022-02-09] MEDS ORDERED: KETAMINE HCL 500 MG/10 ML VIAL ONE (08:08)
[2022-02-09 08:55] VITALS: RESP 16
[2022-02-09 10:00] VITALS: BP 109/67; PULSE 93; TEMP 97
== END 2022-02-09 10:30 | disposition home or self-care (01) ==
LOC: FECT 06:50
PROVIDERS: ATTEND Psychiatry & Neurology Psychiatry
PROC: GZB4ZZZ Other Electroconvulsive Therapy (ICD-10-PCS; principal; 2022-02-09 08:29)
DX: F33.9 Major depressive disorder, recurrent, unspecified (principal)
CPT/HCPCS: 90870; 94760

== ENCOUNTER 2022-02-15 06:49 | Day surgery (SDC) | payer OTHER ==
[2022-02-12 12:11] VITALS: BMI 18.5
[2022-02-15] MEDS ORDERED: KETAMINE HCL 500 MG/10 ML VIAL ONE (08:16)
[2022-02-15 09:28] VITALS: RESP 16; TEMP 97.6
[2022-02-15 11:31] VITALS: BP 118/81; PULSE 72
== END 2022-02-15 11:00 | disposition home or self-care (01) ==
LOC: FECT 06:49
PROVIDERS: ATTEND Psychiatry & Neurology Psychiatry
PROC: GZB4ZZZ Other Electroconvulsive Therapy (ICD-10-PCS; principal; 2022-02-15 08:27)
DX: F33.2 Major depressive disorder, recurrent severe without psychotic features (principal)
CPT/HCPCS: 90870; 94760

== ENCOUNTER 2022-02-22 07:44 | Day surgery (SDC) | payer OTHER ==
[2022-02-22 08:02] VITALS: BMI 18.4
[2022-02-22] MEDS ORDERED: KETAMINE HCL 500 MG/10 ML VIAL ONE (08:59)
[2022-02-22 09:56] VITALS: TEMP 97.8
[2022-02-22 10:25] VITALS: BP 111/71; PULSE 81; RESP 16
== END 2022-02-22 11:35 | disposition home or self-care (01) ==
LOC: FECT 07:44
PROVIDERS: ATTEND Psychiatry & Neurology Psychiatry
PROC: GZB4ZZZ Other Electroconvulsive Therapy (ICD-10-PCS; principal; 2022-02-22 09:10)
DX: F32.9 Major depressive disorder, single episode, unspecified (principal)
CPT/HCPCS: 90870; 94760

== ENCOUNTER → 2022-03-08 | Day surgery (SDC) | payer OTHER ==
[2022-03-06 12:35] VITALS: BMI 18.3
[~2022-03-08] MED LIST changes: +KETAMINE HCL 500 MG/10 ML VIAL ONE; -LACTATED RINGERS SOLUTION 1,000 ML IV SCH
[2022-03-08 09:48] LABS: HEMOGLOBIN 14.1 G/dL (11.7-16.9); MCH 31.9 pg (25.7-33.7); MCHC 35.1 g/dl (32.0-35.9); MEAN CELL VOLUME 90.7 fl (80-96); MEAN PLT VOLUME 7.6 fl (7.5-11.1); PLATELET COUNT 260.3 10^3/uL (134-434); RBC 4.41 10^6/uL (4.00-5.60); RDW 13.9 % (11.9-15.9); WHITE BLOOD COUNT 6.2 10^3/uL (4.0-10.8)
[2022-03-08 09:54] LABS: ALBUMIN 3.9 g/dl (3.4-5.0); BILIRUBIN,TOTAL 0.6 mg/dl (0.2-1); CALCIUM 9.2 mg/dl (8.5-10); TOT PROT 6.4 g/dl (6.4-8.2)
[2022-03-08 11:33] LABS: PLATELET ESTIMATE ADEQUATE
[2022-03-08 14:11] VITALS: BP 128/84; PULSE 75; RESP 17; TEMP 98.2
== END | disposition home or self-care (01) ==
LOC: FECT 08:35
PROVIDERS: ATTEND Psychiatry & Neurology Psychiatry
PROC: GZB4ZZZ Other Electroconvulsive Therapy (ICD-10-PCS; principal; 2022-03-08 10:13)
DX: F32.A Depression, unspecified (principal)
CPT/HCPCS: 36415; 80053; 85027; 90870; 93005; 93010; 94760

== ENCOUNTER 2022-03-15 06:23 | Day surgery (SDC) | payer OTHER ==
[2022-03-12 14:10] VITALS: BMI 18.3
[2022-03-15] MEDS ORDERED: KETAMINE HCL 500 MG/10 ML VIAL ONE (08:09)
[2022-03-15] MEDS ORDERED: PROPOFOL 20 ML ONE (08:13)
[2022-03-15] MEDS ORDERED: SUCCINYLCHOLINE CHLORIDE 200 MG/10 ML SYRINGE ONE (08:13)
[2022-03-15] MEDS ORDERED: ONDANSETRON 4 MG/2 ML VIAL ONE (08:13)
[2022-03-15] MEDS ORDERED: KETOROLAC TROMETHAMINE 30 MG/1 ML VIAL ONE (08:13)
[2022-03-15 09:28] VITALS: RESP 18; TEMP 98
[2022-03-15 09:41] VITALS: BP 122/82; PULSE 81
== END 2022-03-15 10:10 | disposition home or self-care (01) ==
LOC: FECT 06:23
PROVIDERS: ATTEND Psychiatry & Neurology Psychiatry
PROC: GZB4ZZZ Other Electroconvulsive Therapy (ICD-10-PCS; principal; 2022-03-15 08:17)
DX: F33.2 Major depressive disorder, recurrent severe without psychotic features (principal)
CPT/HCPCS: 90870; 94760

== ENCOUNTER 2022-03-22 06:40 | Day surgery (SDC) | payer OTHER ==
[2022-03-22 07:30] VITALS: BMI 18.1
[2022-03-22] MEDS ORDERED: KETAMINE HCL 500 MG/10 ML VIAL ONE (08:17)
[2022-03-22 09:31] VITALS: RESP 18; TEMP 97.8
[2022-03-22 09:55] VITALS: BP 121/77; PULSE 74
== END 2022-03-22 10:20 | disposition home or self-care (01) ==
LOC: FECT 06:40
PROVIDERS: ATTEND Psychiatry & Neurology Psychiatry
PROC: GZB4ZZZ Other Electroconvulsive Therapy (ICD-10-PCS; principal; 2022-03-22 08:42)
DX: F32.A Depression, unspecified (principal)
CPT/HCPCS: 90870; 94760

== ENCOUNTER → 2022-03-29 | Day surgery (SDC) | payer OTHER ==
[2022-03-27 14:18] VITALS: BMI 18.1
[2022-03-29 12:11] VITALS: BP 134/86; PULSE 68; RESP 19; TEMP 97.1
== END | disposition home or self-care (01) ==
LOC: FECT 08:47
PROVIDERS: ATTEND Psychiatry & Neurology Psychiatry
PROC: GZB4ZZZ Other Electroconvulsive Therapy (ICD-10-PCS; principal; 2022-03-29 11:09)
DX: F33.2 Major depressive disorder, recurrent severe without psychotic features (principal)
CPT/HCPCS: 90870; 94760

== ENCOUNTER 2022-04-12 08:06 | Day surgery (SDC) | payer OTHER ==
[2022-04-12 08:28] VITALS: BMI 18.1
[2022-04-12 11:18] VITALS: PULSE 82; RESP 18; TEMP 97.8
[2022-04-12 12:11] VITALS: BP 111/61
== END 2022-04-12 12:16 | disposition home or self-care (01) ==
LOC: FECT 08:06
PROVIDERS: ATTEND Psychiatry & Neurology Psychiatry
PROC: GZB4ZZZ Other Electroconvulsive Therapy (ICD-10-PCS; principal; 2022-04-12 10:22)
DX: F32.A Depression, unspecified (principal)
CPT/HCPCS: 90870; 94760

== ENCOUNTER 2022-04-19 07:34 | Day surgery (SDC) | payer OTHER ==
[2022-04-19 07:58] VITALS: BMI 19.0
[2022-04-19 09:59] VITALS: RESP 18; TEMP 97.8
[2022-04-19 10:34] VITALS: BP 119/74; PULSE 76
== END 2022-04-19 11:20 | disposition home or self-care (01) ==
LOC: FECT 07:34
PROVIDERS: ATTEND Psychiatry & Neurology Psychiatry
PROC: GZB4ZZZ Other Electroconvulsive Therapy (ICD-10-PCS; principal; 2022-04-19 09:18)
DX: F33.9 Major depressive disorder, recurrent, unspecified (principal)
CPT/HCPCS: 90870; 94760

== ENCOUNTER 2022-04-26 07:30 | Day surgery (SDC) | payer OTHER ==
[2022-04-26 07:56] VITALS: BMI 18.7
[2022-04-26] MEDS ORDERED: KETAMINE HCL 500 MG/10 ML VIAL ONE (09:35)
[2022-04-26 10:24] VITALS: TEMP 98.2
[2022-04-26 10:26] VITALS: RESP 18
[2022-04-26 10:41] VITALS: PULSE 85
[2022-04-26 11:09] VITALS: BP 136/82
== END 2022-04-26 12:00 | disposition home or self-care (01) ==
LOC: FECT 07:30
PROVIDERS: ATTEND Psychiatry & Neurology Psychiatry
PROC: GZB4ZZZ Other Electroconvulsive Therapy (ICD-10-PCS; principal; 2022-04-26 09:52)
DX: F32.A Depression, unspecified (principal)
CPT/HCPCS: 90870; 94760

== ENCOUNTER 2022-05-03 08:32 | Day surgery (SDC) | payer OTHER ==
[2022-04-30 16:57] VITALS: BMI 18.7
[2022-05-03] MEDS ORDERED: KETAMINE HCL 500 MG/10 ML VIAL ONE (09:15)
[2022-05-03 10:14] VITALS: RESP 18; TEMP 98
[2022-05-03 11:26] VITALS: BP 125/80; PULSE 72
== END 2022-05-03 11:42 | disposition home or self-care (01) ==
LOC: FECT 08:32
PROVIDERS: ATTEND Psychiatry & Neurology Psychiatry
PROC: GZB4ZZZ Other Electroconvulsive Therapy (ICD-10-PCS; principal; 2022-05-03 09:25)
DX: F32.A Depression, unspecified (principal)
CPT/HCPCS: 90870; 94760

== ENCOUNTER 2022-05-10 09:46 | Day surgery (SDC) | payer OTHER ==
[2022-05-10 10:26] VITALS: BMI 18.3
[2022-05-10] MEDS ORDERED: KETAMINE HCL 500 MG/10 ML VIAL ONE (10:55)
[2022-05-10 12:09] VITALS: RESP 18; TEMP 98
[2022-05-10 12:42] VITALS: BP 122/79; PULSE 81
== END 2022-05-10 13:10 | disposition home or self-care (01) ==
LOC: FECT 09:46
PROVIDERS: ATTEND Psychiatry & Neurology Psychiatry
PROC: GZB4ZZZ Other Electroconvulsive Therapy (ICD-10-PCS; principal; 2022-05-10 11:08)
DX: F32.A Depression, unspecified (principal)
CPT/HCPCS: 90870; 94760

== ENCOUNTER 2022-05-17 09:57 | Day surgery (SDC) | payer OTHER ==
[2022-05-11 17:00] VITALS: BMI 18.3
[2022-05-17] MEDS ORDERED: KETAMINE HCL 500 MG/10 ML VIAL ONE (10:51)
[2022-05-17 12:21] VITALS: TEMP 97.8
[2022-05-17 12:27] VITALS: RESP 18
[2022-05-17 12:28] VITALS: BP 129/79; PULSE 94
== END 2022-05-17 13:00 | disposition home or self-care (01) ==
LOC: FECT 09:57
PROVIDERS: ATTEND Psychiatry & Neurology Psychiatry
PROC: GZB4ZZZ Other Electroconvulsive Therapy (ICD-10-PCS; principal; 2022-05-17 10:57)
DX: F32.A Depression, unspecified (principal)
CPT/HCPCS: 90870; 94760

== ENCOUNTER 2022-05-24 08:50 | Day surgery (SDC) | payer OTHER ==
[2022-05-24 09:12] VITALS: BMI 18.8
[2022-05-24] MEDS ORDERED: KETAMINE HCL 500 MG/10 ML VIAL ONE (09:22)
[2022-05-24 10:30] VITALS: RESP 18; TEMP 97.8
[2022-05-24 10:48] VITALS: BP 130/93; PULSE 95
== END 2022-05-24 11:38 | disposition home or self-care (01) ==
LOC: FECT 08:50
PROVIDERS: ATTEND Psychiatry & Neurology Psychiatry
PROC: GZB4ZZZ Other Electroconvulsive Therapy (ICD-10-PCS; principal; 2022-05-24 09:40)
DX: F33.2 Major depressive disorder, recurrent severe without psychotic features (principal)
CPT/HCPCS: 90870; 94760

== ENCOUNTER 2022-05-31 08:40 | Day surgery (SDC) | payer OTHER ==
[2022-05-29 14:49] VITALS: BMI 18.7
[2022-05-31] MEDS ORDERED: KETAMINE HCL 500 MG/10 ML VIAL ONE (10:26)
[2022-05-31 11:38] VITALS: PULSE 74; RESP 20; TEMP 97.7
[2022-05-31 12:09] VITALS: BP 122/76
== END 2022-05-31 12:20 | disposition home or self-care (01) ==
LOC: FECT 08:40
PROVIDERS: ATTEND Psychiatry & Neurology Psychiatry
PROC: GZB4ZZZ Other Electroconvulsive Therapy (ICD-10-PCS; principal; 2022-05-31 10:41)
DX: F32.A Depression, unspecified (principal)
CPT/HCPCS: 90870; 94760

== ENCOUNTER 2022-06-29 11:11 | Day surgery (SDC) | payer OTHER ==
[2022-06-29 12:30] VITALS: BMI 18.1
[2022-06-29] MEDS ORDERED: KETAMINE HCL 500 MG/10 ML VIAL ONE (12:50)
[2022-06-29 14:11] VITALS: TEMP 97.4
[2022-06-29 14:46] VITALS: RESP 18
[2022-06-29 14:49] VITALS: BP 133/83; PULSE 89
== END 2022-06-29 14:30 | disposition home or self-care (01) ==
LOC: FECT 11:11
PROVIDERS: ATTEND Psychiatry & Neurology Psychiatry
PROC: GZB4ZZZ Other Electroconvulsive Therapy (ICD-10-PCS; principal; 2022-06-29 13:08)
DX: F32.A Depression, unspecified (principal)
CPT/HCPCS: 90870; 94760

== ENCOUNTER 2022-07-05 09:20 | Day surgery (SDC) | payer OTHER ==
[2022-07-05 09:45] VITALS: BMI 18.1
[2022-07-05] MEDS ORDERED: KETAMINE HCL 500 MG/10 ML VIAL ONE (10:12)
[2022-07-05 11:38] VITALS: RESP 20; TEMP 97.8
[2022-07-05 12:05] VITALS: BP 120/78; PULSE 72
== END 2022-07-05 12:15 | disposition home or self-care (01) ==
LOC: FECT 09:20
PROVIDERS: ATTEND Psychiatry & Neurology Psychiatry
PROC: GZB4ZZZ Other Electroconvulsive Therapy (ICD-10-PCS; principal; 2022-07-05 10:24)
DX: F32.A Depression, unspecified (principal)
CPT/HCPCS: 90870; 94760

== ENCOUNTER 2022-07-19 06:38 | Day surgery (SDC) | payer OTHER ==
[2022-07-06 11:36] VITALS: BMI 18.1
[2022-07-19] MEDS ORDERED: SUCCINYLCHOLINE CHLORIDE 200 MG/10 ML SYRINGE ONE (08:16)
[2022-07-19] MEDS ORDERED: KETAMINE HCL 500 MG/10 ML VIAL ONE (08:33)
[2022-07-19 09:25] VITALS: RESP 18; TEMP 98.2
[2022-07-19] MEDS ORDERED: ONDANSETRON 4 MG/2 ML VIAL IVPUSH PRN (10:32)
[2022-07-19] MEDS ORDERED: LACTATED RINGERS SOLUTION 1,000 ML IV SCH (10:45)
[2022-07-19 11:27] VITALS: BP 125/90; PULSE 76
== END 2022-07-19 10:40 | disposition home or self-care (01) ==
LOC: FECT 06:38
PROVIDERS: ATTEND Psychiatry & Neurology Psychiatry
PROC: GZB4ZZZ Other Electroconvulsive Therapy (ICD-10-PCS; principal; 2022-07-19 08:30)
DX: F32.A Depression, unspecified (principal)
CPT/HCPCS: 90870; 94760

== ENCOUNTER 2022-07-26 07:43 | Day surgery (SDC) | payer OTHER ==
[2022-07-26 08:15] VITALS: BMI 18.1
[2022-07-26] MEDS ORDERED: KETAMINE HCL 200 MG/20 ML VIAL ONE (09:01)
[2022-07-26 10:50] VITALS: TEMP 97.1
[2022-07-26 12:28] VITALS: BP 152/79; PULSE 88; RESP 16
== END 2022-07-26 11:05 | disposition home or self-care (01) ==
LOC: FECT 07:43
PROVIDERS: ATTEND Psychiatry & Neurology Psychiatry
PROC: GZB4ZZZ Other Electroconvulsive Therapy (ICD-10-PCS; principal; 2022-07-26 09:08)
DX: F32.A Depression, unspecified (principal)
CPT/HCPCS: 90870; 94760

== ENCOUNTER 2022-08-02 09:40 | Day surgery (SDC) | payer OTHER ==
[2022-07-27 15:12] VITALS: BMI 18.1
[2022-08-02] MEDS ORDERED: KETAMINE HCL 500 MG/10 ML VIAL ONE (10:56)
[2022-08-02] MEDS ORDERED: PROMETHAZINE HCL 25 MG/1 ML VIAL IVPUSH PRN (11:33)
[2022-08-02] MEDS ORDERED: ACETAMINOPHEN 325 MG TABLET (FP) PO PRN (11:33)
[2022-08-02] MEDS ORDERED: LACTATED RINGERS SOLUTION 1,000 ML IV SCH (11:45)
[2022-08-02 12:03] VITALS: RESP 20; TEMP 97.9
[2022-08-02 12:24] VITALS: BP 125/77
[2022-08-02 14:01] VITALS: PULSE 88
== END 2022-08-02 13:25 | disposition home or self-care (01) ==
LOC: FECT 09:40
PROVIDERS: ATTEND Psychiatry & Neurology Psychiatry
PROC: GZB4ZZZ Other Electroconvulsive Therapy (ICD-10-PCS; principal; 2022-08-02 11:16)
DX: F32.A Depression, unspecified (principal)
CPT/HCPCS: 90870; 94760

== ENCOUNTER 2022-08-09 10:18 | Day surgery (SDC) | payer OTHER ==
[2022-08-09 10:40] VITALS: TEMP 97.8; BMI 18.3
[2022-08-09] MEDS ORDERED: KETAMINE HCL 500 MG/10 ML VIAL ONE (11:03)
[2022-08-09 12:14] VITALS: RESP 18
[2022-08-09 12:41] VITALS: BP 131/90; PULSE 79
== END 2022-08-09 13:05 | disposition home or self-care (01) ==
LOC: FECT 10:18
PROVIDERS: ATTEND Psychiatry & Neurology Psychiatry
PROC: GZB4ZZZ Other Electroconvulsive Therapy (ICD-10-PCS; principal; 2022-08-09 11:11)
DX: F32.A Depression, unspecified (principal)
CPT/HCPCS: 90870; 94760

== ENCOUNTER 2022-08-16 09:17 | Day surgery (SDC) | payer OTHER ==
[2022-08-14 16:16] VITALS: BMI 18.3
[2022-08-16] MEDS ORDERED: KETAMINE HCL 500 MG/10 ML VIAL ONE (10:30)
[2022-08-16 11:44] VITALS: RESP 18; TEMP 97.8
[2022-08-16 12:09] VITALS: BP 141/91; PULSE 88
== END 2022-08-16 12:30 | disposition home or self-care (01) ==
LOC: FECT 09:17
PROVIDERS: ATTEND Psychiatry & Neurology Psychiatry
PROC: GZB4ZZZ Other Electroconvulsive Therapy (ICD-10-PCS; principal; 2022-08-16 10:46)
DX: F32.A Depression, unspecified (principal)
CPT/HCPCS: 90870; 94760

== ENCOUNTER 2022-08-23 08:29 | Day surgery (SDC) | payer OTHER ==
[2022-08-17 09:54] VITALS: BMI 18.2
[2022-08-23] MEDS ORDERED: KETAMINE HCL 500 MG/10 ML VIAL ONE (10:37)
[2022-08-23 11:33] VITALS: PULSE 85; RESP 18; TEMP 97.2
[2022-08-23 13:56] VITALS: BP 120/84
== END 2022-08-23 12:50 | disposition home or self-care (01) ==
LOC: FECT 08:29
PROVIDERS: ATTEND Psychiatry & Neurology Psychiatry
PROC: GZB4ZZZ Other Electroconvulsive Therapy (ICD-10-PCS; principal; 2022-08-23 10:45)
DX: F32.A Depression, unspecified (principal)
CPT/HCPCS: 90870; 94760

== ENCOUNTER 2022-08-30 07:42 | Day surgery (SDC) | payer OTHER ==
[2022-08-30 08:08] VITALS: BMI 18.3
[2022-08-30] MEDS ORDERED: KETAMINE HCL 500 MG/10 ML VIAL ONE (08:50)
[2022-08-30 09:45] VITALS: RESP 18; TEMP 97.1
[2022-08-30 10:20] VITALS: BP 121/79; PULSE 71
== END 2022-08-30 10:50 | disposition home or self-care (01) ==
LOC: FECT 07:42
PROVIDERS: ATTEND Psychiatry & Neurology Psychiatry
PROC: GZB4ZZZ Other Electroconvulsive Therapy (ICD-10-PCS; principal; 2022-08-30 09:00)
DX: F32.A Depression, unspecified (principal)
CPT/HCPCS: 90870; 94760

== ENCOUNTER 2022-09-06 07:45 | Day surgery (SDC) | payer OTHER ==
[2022-09-04 10:38] VITALS: BMI 18.3
[2022-09-06] MEDS ORDERED: LACTATED RINGERS SOLUTION 1,000 ML IV SCH (08:00)
[2022-09-06 09:02] LABS: HEMATOCRIT 38.3 % (35.4-49); HEMOGLOBIN 13.3 G/dL (11.7-16.9); MCH 32.1 pg (25.7-33.7); MCHC 34.6 g/dl (32.0-35.9); MEAN CELL VOLUME 92.4 fl (80-96); MEAN PLT VOLUME 7.2 fl (7.5-11.1); RBC 4.14 10^6/uL (4.00-5.60); RDW 14.1 % (11.9-15.9); WHITE BLOOD COUNT 8.7 10^3/uL (4.0-10.8)
[2022-09-06 09:09] LABS: ALBUMIN 4.2 g/dl (3.4-5.0); BILIRUBIN,TOTAL 0.4 mg/dl (0.2-1); CALCIUM 9.1 mg/dl (8.5-10); TOT PROT 6.8 g/dl (6.4-8.2)
[2022-09-06] MEDS ORDERED: KETAMINE HCL 500 MG/10 ML VIAL ONE (09:12)
[2022-09-06 09:31] LABS: PLATELET ESTIMATE ADEQUATE
[2022-09-06 10:53] VITALS: RESP 18; TEMP 97.9
[2022-09-06 10:54] VITALS: BP 129/79; PULSE 71
== END 2022-09-06 11:35 | disposition home or self-care (01) ==
LOC: FECT 07:45
PROVIDERS: ATTEND Psychiatry & Neurology Psychiatry
PROC: GZB4ZZZ Other Electroconvulsive Therapy (ICD-10-PCS; principal; 2022-09-06 09:20)
DX: F33.2 Major depressive disorder, recurrent severe without psychotic features (principal)
CPT/HCPCS: 36415; 80053; 85027; 90870; 93005; 94760

== ENCOUNTER 2022-09-13 08:56 | Day surgery (SDC) | payer OTHER ==
[2022-09-13 09:23] VITALS: BMI 17.7
[2022-09-13] MEDS ORDERED: KETAMINE HCL 500 MG/10 ML VIAL ONE (09:41)
[2022-09-13 10:40] VITALS: PULSE 84; RESP 18; TEMP 97.8
[2022-09-13 11:19] VITALS: BP 111/60
== END 2022-09-13 11:30 | disposition home or self-care (01) ==
LOC: FECT 08:56
PROVIDERS: ATTEND Psychiatry & Neurology Psychiatry
PROC: GZB4ZZZ Other Electroconvulsive Therapy (ICD-10-PCS; principal; 2022-09-13 09:48)
DX: F32.A Depression, unspecified (principal)
CPT/HCPCS: 90870; 94760

== ENCOUNTER → 2022-09-20 | Day surgery (SDC) | payer OTHER ==
[2022-09-20 12:10] VITALS: BMI 17.5
[2022-09-20 13:44] VITALS: TEMP 97.8
[2022-09-20 13:58] VITALS: RESP 16
[2022-09-20 14:26] VITALS: BP 132/82; PULSE 88
== END | disposition home or self-care (01) ==
LOC: FECT 11:51
PROVIDERS: ATTEND Psychiatry & Neurology Psychiatry
PROC: GZB4ZZZ Other Electroconvulsive Therapy (ICD-10-PCS; principal; 2022-09-20 12:57)
DX: F32.A Depression, unspecified (principal)
CPT/HCPCS: 90870; 94760

== ENCOUNTER 2022-09-27 08:26 | Day surgery (SDC) | payer OTHER ==
[2022-09-27 08:47] VITALS: RESP 16; BMI 17.6
[2022-09-27 11:35] VITALS: TEMP 97.6
[2022-09-27 11:47] VITALS: BP 128/89; PULSE 94
== END 2022-09-27 12:15 | disposition home or self-care (01) ==
LOC: FECT 08:26
PROVIDERS: ATTEND Psychiatry & Neurology Psychiatry
PROC: GZB4ZZZ Other Electroconvulsive Therapy (ICD-10-PCS; principal; 2022-09-27 10:30)
DX: F32.A Depression, unspecified (principal)
CPT/HCPCS: 90870; 94760

== ENCOUNTER 2022-10-04 07:17 | Day surgery (SDC) | payer OTHER ==
[2022-10-04 07:40] VITALS: BMI 17.7
[2022-10-04] MEDS ORDERED: LACTATED RINGERS SOLUTION 1,000 ML IV SCH (08:15)
[2022-10-04 12:45] VITALS: BP 114/67; PULSE 85; RESP 19; TEMP 98.2
== END 2022-10-04 11:55 | disposition home or self-care (01) ==
LOC: FECT 07:17
PROVIDERS: ATTEND Psychiatry & Neurology Psychiatry
PROC: GZB4ZZZ Other Electroconvulsive Therapy (ICD-10-PCS; principal; 2022-10-04 09:37)
DX: F32.A Depression, unspecified (principal)
CPT/HCPCS: 90870; 94760

== ENCOUNTER 2022-10-11 09:01 | Day surgery (SDC) | payer OTHER ==
[2022-10-05 16:45] VITALS: BMI 17.6
[~2022-10-11 09:01] MED LIST changes: -KETAMINE HCL 500 MG/10 ML VIAL ONE; +LACTATED RINGERS SOLUTION 1,000 ML IV SCH
[2022-10-11 11:34] VITALS: PULSE 75; RESP 18; TEMP 97.8
[2022-10-11 11:52] VITALS: BP 122/80
== END 2022-10-11 12:22 | disposition home or self-care (01) ==
LOC: FECT 09:01
PROVIDERS: ATTEND Psychiatry & Neurology Psychiatry
PROC: GZB4ZZZ Other Electroconvulsive Therapy (ICD-10-PCS; principal; 2022-10-11 10:36)
DX: F32.A Depression, unspecified (principal)
CPT/HCPCS: 90870; 94760

== ENCOUNTER 2022-10-18 09:22 | Day surgery (SDC) | payer OTHER ==
[2022-10-18 09:49] VITALS: BMI 17.7
[2022-10-18] MEDS ORDERED: KETAMINE HCL 500 MG/10 ML VIAL ONE (10:44)
[2022-10-18 11:35] VITALS: RESP 18
[2022-10-18 11:58] VITALS: TEMP 97.8
[2022-10-18 12:28] VITALS: BP 120/80; PULSE 75
== END 2022-10-18 13:00 | disposition home or self-care (01) ==
LOC: FECT 09:22
PROVIDERS: ATTEND Psychiatry & Neurology Psychiatry
PROC: GZB4ZZZ Other Electroconvulsive Therapy (ICD-10-PCS; principal; 2022-10-18 10:56)
DX: F32.A Depression, unspecified (principal)
CPT/HCPCS: 90870; 94760

== ENCOUNTER 2022-10-25 07:37 | Day surgery (SDC) | payer OTHER ==
[2022-10-19 11:25] VITALS: BMI 17.7
[2022-10-25] MEDS ORDERED: KETAMINE HCL 500 MG/10 ML VIAL ONE (08:36)
[2022-10-25 09:54] VITALS: RESP 18; TEMP 98
[2022-10-25 10:19] VITALS: BP 121/85; PULSE 84
== END 2022-10-25 11:30 | disposition home or self-care (01) ==
LOC: FECT 07:37
PROVIDERS: ATTEND Psychiatry & Neurology Psychiatry
PROC: GZB4ZZZ Other Electroconvulsive Therapy (ICD-10-PCS; principal; 2022-10-25 08:46)
DX: F33.2 Major depressive disorder, recurrent severe without psychotic features (principal)
CPT/HCPCS: 90870; 94760

== ENCOUNTER 2022-11-08 10:03 | Day surgery (SDC) | payer OTHER ==
[2022-11-08 10:28] VITALS: BMI 17.9
[2022-11-08] MEDS ORDERED: KETAMINE HCL 500 MG/10 ML VIAL ONE (11:27)
[2022-11-08 12:08] VITALS: TEMP 97.4
[2022-11-08 12:31] VITALS: RESP 18
[2022-11-08 12:59] VITALS: BP 131/81; PULSE 74
== END 2022-11-08 13:30 | disposition home or self-care (01) ==
LOC: FECT 10:03
PROVIDERS: ATTEND Psychiatry & Neurology Psychiatry
PROC: GZB4ZZZ Other Electroconvulsive Therapy (ICD-10-PCS; principal; 2022-11-08 11:44)
DX: F32.A Depression, unspecified (principal)
CPT/HCPCS: 90870; 94760

== ENCOUNTER 2022-11-15 08:50 | Day surgery (SDC) | payer OTHER ==
[2022-11-15 09:24] VITALS: BMI 18.2
[2022-11-15] MEDS ORDERED: KETAMINE HCL 500 MG/10 ML VIAL ONE (10:38)
[2022-11-15] MEDS ORDERED: ONDANSETRON 4 MG/2 ML VIAL ONE (10:53)
[2022-11-15 11:46] VITALS: RESP 18
[2022-11-15 12:11] VITALS: BP 108/69; PULSE 88; TEMP 97.9
== END 2022-11-15 13:00 | disposition home or self-care (01) ==
LOC: FECT 08:50
PROVIDERS: ATTEND Psychiatry & Neurology Psychiatry
PROC: GZB4ZZZ Other Electroconvulsive Therapy (ICD-10-PCS; principal; 2022-11-15 10:45)
DX: F33.2 Major depressive disorder, recurrent severe without psychotic features (principal)
CPT/HCPCS: 90870; 94760

== ENCOUNTER 2022-11-22 06:59 | Day surgery (SDC) | payer OTHER ==
[2022-11-22 07:18] VITALS: BMI 18.2
[2022-11-22] MEDS ORDERED: KETAMINE HCL 500 MG/10 ML VIAL ONE (08:06)
[2022-11-22 08:50] VITALS: TEMP 97.5
[2022-11-22 09:36] VITALS: RESP 18
[2022-11-22 09:37] VITALS: BP 129/79; PULSE 88
== END 2022-11-22 10:35 | disposition home or self-care (01) ==
LOC: FECT 06:59
PROVIDERS: ATTEND Psychiatry & Neurology Psychiatry
PROC: GZB4ZZZ Other Electroconvulsive Therapy (ICD-10-PCS; principal; 2022-11-22 08:16)
DX: F33.2 Major depressive disorder, recurrent severe without psychotic features (principal)
CPT/HCPCS: 90870; 94760

== ENCOUNTER 2022-11-29 08:52 | Day surgery (SDC) | payer OTHER ==
[2022-11-29 09:18] VITALS: BMI 17.5
[2022-11-29] MEDS ORDERED: KETAMINE HCL 500 MG/10 ML VIAL ONE (11:30)
[2022-11-29 12:23] VITALS: RESP 18
[2022-11-29 12:39] VITALS: TEMP 98
[2022-11-29 15:06] VITALS: BP 115/79; PULSE 79
== END 2022-11-29 13:50 | disposition home or self-care (01) ==
LOC: FECT 08:52
PROVIDERS: ATTEND Psychiatry & Neurology Psychiatry
PROC: GZB4ZZZ Other Electroconvulsive Therapy (ICD-10-PCS; principal; 2022-11-29 11:41)
DX: F33.9 Major depressive disorder, recurrent, unspecified (principal)
CPT/HCPCS: 90870; 94760

== ENCOUNTER 2022-12-06 07:54 | Day surgery (SDC) | payer OTHER ==
[2022-12-06 08:25] VITALS: BMI 17.6
[2022-12-06] MEDS ORDERED: KETAMINE HCL 500 MG/10 ML VIAL ONE (09:40)
[2022-12-06] MEDS ORDERED: SUCCINYLCHOLINE CHLORIDE 200 MG/10 ML SYRINGE ONE (10:09)
[2022-12-06 10:46] VITALS: RESP 18; TEMP 98
[2022-12-06 11:28] VITALS: BP 128/78; PULSE 85
== END 2022-12-06 12:05 | disposition home or self-care (01) ==
LOC: FECT 07:54
PROVIDERS: ATTEND Psychiatry & Neurology Psychiatry
PROC: GZB4ZZZ Other Electroconvulsive Therapy (ICD-10-PCS; principal; 2022-12-06 10:03)
DX: F33.9 Major depressive disorder, recurrent, unspecified (principal)
CPT/HCPCS: 90870; 94760

== ENCOUNTER 2022-12-13 07:32 | Day surgery (SDC) | payer OTHER ==
[2022-12-07 17:21] VITALS: BMI 17.6
[2022-12-13] MEDS ORDERED: KETAMINE HCL 500 MG/10 ML VIAL ONE (10:22)
[2022-12-13] MEDS ORDERED: ACETAMINOPHEN 325 MG TABLET (FP) PO PRN (10:35)
[2022-12-13] MEDS ORDERED: PROMETHAZINE HCL 25 MG/1 ML VIAL IVPB PRN (10:35)
[2022-12-13] MEDS ORDERED: LACTATED RINGERS SOLUTION 1,000 ML IV SCH (10:45)
[2022-12-13 11:06] VITALS: TEMP 97.6
[2022-12-13 11:59] VITALS: RESP 18
[2022-12-13 12:02] VITALS: BP 133/87; PULSE 89
== END 2022-12-13 13:30 | disposition home or self-care (01) ==
LOC: FECT 07:32
PROVIDERS: ATTEND Psychiatry & Neurology Psychiatry
PROC: GZB4ZZZ Other Electroconvulsive Therapy (ICD-10-PCS; principal; 2022-12-13 10:35)
DX: F33.9 Major depressive disorder, recurrent, unspecified (principal)
CPT/HCPCS: 90870; 94760

== ENCOUNTER → 2022-12-20 | Day surgery (SDC) | payer OTHER ==
[~2022-12-20] MED LIST changes: +KETAMINE HCL 500 MG/10 ML VIAL ONE; -LACTATED RINGERS SOLUTION 1,000 ML IV SCH
[2022-12-20 12:52] VITALS: BMI 18.3
[2022-12-20 15:22] VITALS: RESP 16
[2022-12-20 15:33] VITALS: BP 138/75; PULSE 85; TEMP 97.2
== END | disposition home or self-care (01) ==
LOC: FECT 11:25
PROVIDERS: ATTEND Psychiatry & Neurology Psychiatry
PROC: GZB4ZZZ Other Electroconvulsive Therapy (ICD-10-PCS; principal; 2022-12-20 14:34)
DX: F33.2 Major depressive disorder, recurrent severe without psychotic features (principal)
CPT/HCPCS: 90870; 94760

== ENCOUNTER 2022-12-27 07:57 | Day surgery (SDC) | payer OTHER ==
[2022-12-27 08:30] VITALS: TEMP 97.4; BMI 17.8
[2022-12-27 12:09] VITALS: RESP 16
[2022-12-27 13:20] VITALS: BP 118/72; PULSE 72
== END 2022-12-27 13:13 | disposition home or self-care (01) ==
LOC: FECT 07:57
PROVIDERS: ATTEND Psychiatry & Neurology Psychiatry
PROC: GZB4ZZZ Other Electroconvulsive Therapy (ICD-10-PCS; principal; 2022-12-27 11:18)
DX: F33.9 Major depressive disorder, recurrent, unspecified (principal)
CPT/HCPCS: 90870; 94760

== ENCOUNTER 2023-01-03 09:35 | Day surgery (SDC) | payer OTHER ==
[2023-01-03] MEDS ORDERED: ACETAMINOPHEN 325 MG TABLET (FP) PO PRN (11:05)
[2023-01-03] MEDS ORDERED: PROMETHAZINE HCL 25 MG/1 ML VIAL IVPB PRN (11:05)
[2023-01-03] MEDS ORDERED: LACTATED RINGERS SOLUTION 1,000 ML IV SCH (11:15)
[2023-01-03 11:47] VITALS: RESP 16; BMI 17.6
[2023-01-03] MEDS ORDERED: KETAMINE HCL 500 MG/10 ML VIAL ONE (12:09)
[2023-01-03 14:33] VITALS: BP 129/82; PULSE 67; TEMP 96.6
== END 2023-01-03 14:20 | disposition home or self-care (01) ==
LOC: FECT 09:35
PROVIDERS: ATTEND Psychiatry & Neurology Psychiatry
PROC: GZB4ZZZ Other Electroconvulsive Therapy (ICD-10-PCS; principal; 2023-01-03 12:23)
DX: F33.9 Major depressive disorder, recurrent, unspecified (principal)
CPT/HCPCS: 90870; 94760

== ENCOUNTER 2023-01-10 07:34 | Day surgery (SDC) | payer OTHER ==
[2023-01-10 07:59] VITALS: BMI 17.6
[2023-01-10] MEDS ORDERED: SUCCINYLCHOLINE CHLORIDE 200 MG/10 ML SYRINGE ONE (09:15)
[2023-01-10 09:34] VITALS: TEMP 97.6
[2023-01-10] MEDS ORDERED: KETOROLAC TROMETHAMINE 30 MG/1 ML VIAL ONE (09:39)
[2023-01-10 10:06] VITALS: RESP 18
[2023-01-10 10:32] VITALS: BP 131/87; PULSE 69
== END 2023-01-10 12:00 | disposition home or self-care (01) ==
LOC: FECT 07:34
PROVIDERS: ATTEND Psychiatry & Neurology Psychiatry
PROC: GZB4ZZZ Other Electroconvulsive Therapy (ICD-10-PCS; principal; 2023-01-10 09:03)
DX: F32.A Depression, unspecified (principal)
CPT/HCPCS: 90870; 94760

== ENCOUNTER 2023-01-17 10:06 | Day surgery (SDC) | payer OTHER ==
[2023-01-16 16:11] VITALS: BMI 17.6
[~2023-01-17 10:06] MED LIST changes: -KETAMINE HCL 500 MG/10 ML VIAL ONE; +LACTATED RINGERS SOLUTION 1,000 ML IV SCH
[2023-01-17] MEDS ORDERED: KETAMINE HCL 500 MG/10 ML VIAL ONE (11:12)
[2023-01-17 12:24] VITALS: TEMP 98
[2023-01-17 12:33] VITALS: RESP 18
[2023-01-17 12:35] VITALS: BP 133/83; PULSE 85
== END 2023-01-17 12:35 | disposition home or self-care (01) ==
LOC: FECT 10:06
PROVIDERS: ATTEND Psychiatry & Neurology Psychiatry
PROC: GZB4ZZZ Other Electroconvulsive Therapy (ICD-10-PCS; principal; 2023-01-17 11:25)
DX: F32.A Depression, unspecified (principal)
CPT/HCPCS: 90870; 94760

== ENCOUNTER 2023-01-24 09:06 | Day surgery (SDC) | payer OTHER ==
[2023-01-17 16:00] VITALS: BMI 17.6
[2023-01-24 09:29] VITALS: RESP 18
[2023-01-24] MEDS ORDERED: KETAMINE HCL 500 MG/10 ML VIAL ONE (10:32)
[2023-01-24 12:04] VITALS: TEMP 97.9
[2023-01-24 12:09] VITALS: BP 122/84; PULSE 87
== END 2023-01-24 12:00 | disposition home or self-care (01) ==
LOC: FECT 09:06
PROVIDERS: ATTEND Psychiatry & Neurology Psychiatry
PROC: GZB4ZZZ Other Electroconvulsive Therapy (ICD-10-PCS; principal; 2023-01-24 10:43)
DX: F32.A Depression, unspecified (principal)
CPT/HCPCS: 90870; 94760

== ENCOUNTER 2023-02-12 09:06 | Day surgery (SDC) | payer OTHER ==
[2023-02-12 09:20] VITALS: BMI 17.9
[2023-02-12] MEDS ORDERED: KETAMINE HCL 500 MG/10 ML VIAL ONE (09:53)
[2023-02-12 10:52] VITALS: TEMP 97.5
[2023-02-12 13:55] VITALS: BP 126/78; PULSE 81; RESP 19
== END 2023-02-12 13:55 | disposition home or self-care (01) ==
LOC: FECT 09:06
PROVIDERS: ATTEND Psychiatry & Neurology Psychiatry
PROC: GZB4ZZZ Other Electroconvulsive Therapy (ICD-10-PCS; principal; 2023-02-12 10:02)
DX: F32.A Depression, unspecified (principal)
CPT/HCPCS: 90870; 94760

== ENCOUNTER 2023-02-14 07:47 | Day surgery (SDC) | payer OTHER ==
[2023-02-12 13:54] VITALS: BMI 17.9
[2023-02-14 08:18] VITALS: TEMP 97.8
[2023-02-14] MEDS ORDERED: KETAMINE HCL 500 MG/10 ML VIAL ONE (09:36)
[2023-02-14] MEDS ORDERED: SUCCINYLCHOLINE CHLORIDE 200 MG/10 ML SYRINGE ONE (09:42)
[2023-02-14 10:35] VITALS: BP 132/82; PULSE 78; RESP 18
== END 2023-02-14 11:50 | disposition home or self-care (01) ==
LOC: FECT 07:47
PROVIDERS: ATTEND Psychiatry & Neurology Psychiatry
PROC: GZB4ZZZ Other Electroconvulsive Therapy (ICD-10-PCS; principal; 2023-02-14 09:49)
DX: F32.A Depression, unspecified (principal)
CPT/HCPCS: 90870; 94760

== ENCOUNTER 2023-02-21 08:27 | Day surgery (SDC) | payer OTHER ==
[2023-02-21 08:51] VITALS: BMI 17.7
[2023-02-21] MEDS ORDERED: KETAMINE HCL 500 MG/10 ML VIAL ONE (10:46)
[2023-02-21 11:24] VITALS: TEMP 97.5
[2023-02-21] MEDS ORDERED: ONDANSETRON 4 MG/2 ML VIAL IVPUSH PRN (11:55)
[2023-02-21] MEDS ORDERED: LACTATED RINGERS SOLUTION 1,000 ML IV SCH (12:00)
[2023-02-21 12:09] VITALS: RESP 18
[2023-02-21 12:32] VITALS: BP 121/80; PULSE 79
[2023-02-21 12:38] LABS: HEMATOCRIT 40.5 % (35.4-49); MCH 32.4 pg (25.7-33.7); MCHC 34.4 g/dl (32.0-35.9); MEAN PLT VOLUME 6.5 fl (7.5-11.1); PLATELET COUNT 228.3 10^3/uL (134-434); RBC 4.31 10^6/uL (4.00-5.60); RDW 14.2 % (11.9-15.9); WHITE BLOOD COUNT 6.3 10^3/uL (4.0-10.8)
[2023-02-21 12:50] LABS: ALBUMIN 4.6 g/dl (3.4-5.0); BILIRUBIN,TOTAL 0.4 mg/dl (0.2-1); BLOOD UREA NITROGEN 7.5 mg/dl (7-18); CALCIUM 9.5 mg/dl (8.5-10.1); CREATININE 0.9 mg/dl (0.6-1.3); POTASSIUM 3.8 mmol/L (3.5-5.1); SGOT/AST 12.7 U/L (15-37); SGPT/ALT 11.4 U/L (7-52); TOT PROT 6.9 g/dl (6.4-8.2)
== END 2023-02-21 13:00 | disposition home or self-care (01) ==
LOC: FECT 08:27
PROVIDERS: ATTEND Psychiatry & Neurology Psychiatry
PROC: GZB4ZZZ Other Electroconvulsive Therapy (ICD-10-PCS; principal; 2023-02-21 10:56)
DX: F33.2 Major depressive disorder, recurrent severe without psychotic features (principal)
CPT/HCPCS: 36415; 80053; 85027; 90870; 93005; 94760

== ENCOUNTER 2023-02-28 09:25 | Day surgery (SDC) | payer OTHER ==
[2023-02-28 09:57] VITALS: BMI 17.7
[2023-02-28] MEDS ORDERED: KETAMINE HCL 500 MG/10 ML VIAL ONE (10:37)
[2023-02-28 11:41] VITALS: TEMP 97.7
[2023-02-28 11:55] VITALS: BP 118/84; PULSE 90; RESP 18
== END 2023-02-28 12:50 | disposition home or self-care (01) ==
LOC: FECT 09:25
PROVIDERS: ATTEND Psychiatry & Neurology Psychiatry
PROC: GZB4ZZZ Other Electroconvulsive Therapy (ICD-10-PCS; principal; 2023-02-28 10:45)
DX: F32.A Depression, unspecified (principal)
CPT/HCPCS: 90870; 94760

== ENCOUNTER 2023-03-07 08:29 | Day surgery (SDC) | payer OTHER ==
[~2023-03-07 08:29] MED LIST changes: +ONDANSETRON 4 MG/2 ML VIAL IVPUSH PRN
[2023-03-07 08:45] VITALS: BMI 17.7
[2023-03-07] MEDS ORDERED: PROPOFOL 20 ML ONE (09:37)
[2023-03-07] MEDS ORDERED: KETOROLAC TROMETHAMINE 30 MG/1 ML VIAL ONE (09:37)
[2023-03-07] MEDS ORDERED: ONDANSETRON 4 MG/2 ML VIAL ONE (09:37)
[2023-03-07] MEDS ORDERED: SUCCINYLCHOLINE CHLORIDE 200 MG/10 ML SYRINGE ONE (09:37)
[2023-03-07] MEDS ORDERED: KETAMINE HCL 500 MG/10 ML VIAL ONE (09:57)
[2023-03-07 11:15] VITALS: PULSE 80; RESP 20; TEMP 97.3
[2023-03-07 12:28] VITALS: BP 112/76
== END 2023-03-07 11:35 | disposition home or self-care (01) ==
LOC: FECT 08:29
PROVIDERS: ATTEND Psychiatry & Neurology Psychiatry
PROC: GZB4ZZZ Other Electroconvulsive Therapy (ICD-10-PCS; principal; 2023-03-07 10:05)
DX: F32.A Depression, unspecified (principal)
CPT/HCPCS: 90870; 94760

== ENCOUNTER 2023-03-14 09:52 | Day surgery (SDC) | payer OTHER ==
[2023-03-14 10:13] VITALS: BMI 17.6
[2023-03-14] MEDS ORDERED: KETAMINE HCL 500 MG/10 ML VIAL ONE (10:43)
[2023-03-14 11:58] VITALS: RESP 16; TEMP 97.6
[2023-03-14 12:26] VITALS: BP 116/77; PULSE 90
== END 2023-03-14 12:25 | disposition short-term general hospital (02) ==
LOC: FECT 09:52
PROVIDERS: ATTEND Psychiatry & Neurology Psychiatry
PROC: GZB4ZZZ Other Electroconvulsive Therapy (ICD-10-PCS; principal; 2023-03-14 11:09)
DX: F32.A Depression, unspecified (principal)
CPT/HCPCS: 90870; 94760

== ENCOUNTER 2023-03-21 08:36 | Day surgery (SDC) | payer OTHER ==
[2023-03-21 09:13] VITALS: BMI 18.3
[2023-03-21] MEDS ORDERED: KETAMINE HCL 500 MG/10 ML VIAL ONE (09:53)
[2023-03-21] MEDS ORDERED: SUCCINYLCHOLINE CHLORIDE 200 MG/10 ML SYRINGE ONE (10:07)
[2023-03-21] MEDS ORDERED: ONDANSETRON 4 MG/2 ML VIAL IVPUSH PRN (10:28)
[2023-03-21] MEDS ORDERED: LACTATED RINGERS SOLUTION 1,000 ML IV SCH (10:30)
[2023-03-21 11:06] VITALS: BP 126/89; PULSE 89; RESP 18; TEMP 97.2
== END 2023-03-21 11:49 | disposition home or self-care (01) ==
LOC: FECT 08:36
PROVIDERS: ATTEND Psychiatry & Neurology Psychiatry
PROC: GZB4ZZZ Other Electroconvulsive Therapy (ICD-10-PCS; principal; 2023-03-21 10:12)
DX: F32.A Depression, unspecified (principal)
CPT/HCPCS: 90870; 94760

== ENCOUNTER 2023-03-28 08:48 | Day surgery (SDC) | payer OTHER ==
[2023-03-28 09:01] VITALS: BMI 19.0
[2023-03-28] MEDS ORDERED: KETAMINE HCL 500 MG/10 ML VIAL ONE (10:18)
[2023-03-28 11:26] VITALS: TEMP 96.6
[2023-03-28 11:30] VITALS: BP 122/78; PULSE 82; RESP 19
== END 2023-03-28 10:47 | disposition home or self-care (01) ==
LOC: FECT 08:48
PROVIDERS: ATTEND Psychiatry & Neurology Psychiatry
PROC: GZB4ZZZ Other Electroconvulsive Therapy (ICD-10-PCS; principal; 2023-03-28 10:27)
DX: F32.A Depression, unspecified (principal)
CPT/HCPCS: 90870; 94760

== ENCOUNTER 2023-04-18 11:07 | Day surgery (SDC) | payer OTHER ==
[2023-04-17 15:31] VITALS: BMI 18.3
[2023-04-18] MEDS ORDERED: KETAMINE HCL 500 MG/10 ML VIAL ONE (12:18)
[2023-04-18 13:48] VITALS: RESP 16; TEMP 97.5
[2023-04-18 13:51] VITALS: BP 124/77; PULSE 90
== END 2023-04-18 13:45 | disposition other institution (70) ==
LOC: FECT 11:07
PROVIDERS: ATTEND Psychiatry & Neurology Psychiatry
PROC: GZB4ZZZ Other Electroconvulsive Therapy (ICD-10-PCS; principal; 2023-04-18 12:27)
DX: F32.A Depression, unspecified (principal)
CPT/HCPCS: 90870; 94760

== ENCOUNTER 2023-04-25 09:26 | Day surgery (SDC) | payer OTHER ==
[2023-04-23 17:26] VITALS: BMI 18.3
[2023-04-25] MEDS ORDERED: KETAMINE HCL 500 MG/10 ML VIAL ONE (11:01)
[2023-04-25 11:46] VITALS: TEMP 97.3
[2023-04-25 12:23] VITALS: BP 130/83; PULSE 77; RESP 18
== END 2023-04-25 12:35 | disposition home or self-care (01) ==
LOC: FECT 09:26
PROVIDERS: ATTEND Psychiatry & Neurology Psychiatry
PROC: GZB4ZZZ Other Electroconvulsive Therapy (ICD-10-PCS; principal; 2023-04-25 11:11)
DX: F32.A Depression, unspecified (principal)
CPT/HCPCS: 90870; 94760

== ENCOUNTER 2023-05-02 10:25 | Day surgery (SDC) | payer OTHER ==
[2023-05-02 10:42] VITALS: BMI 18.1
[2023-05-02] MEDS ORDERED: SUCCINYLCHOLINE CHLORIDE 200 MG/10 ML SYRINGE ONE (12:01)
[2023-05-02] MEDS ORDERED: PROPOFOL 20 ML ONE (12:01)
[2023-05-02] MEDS ORDERED: ONDANSETRON 4 MG/2 ML VIAL ONE (12:01)
[2023-05-02] MEDS ORDERED: KETOROLAC TROMETHAMINE 30 MG/1 ML VIAL ONE (12:01)
[2023-05-02] MEDS ORDERED: KETAMINE HCL 500 MG/10 ML VIAL ONE (12:01)
[2023-05-02 12:39] VITALS: RESP 16
[2023-05-02 13:28] VITALS: TEMP 97.3
[2023-05-02 13:35] VITALS: BP 111/50; PULSE 101
== END 2023-05-02 14:00 | disposition home or self-care (01) ==
LOC: FECT 10:25
PROVIDERS: ATTEND Psychiatry & Neurology Psychiatry
PROC: GZB4ZZZ Other Electroconvulsive Therapy (ICD-10-PCS; principal; 2023-05-02 12:10)
DX: F32.A Depression, unspecified (principal)
CPT/HCPCS: 90870; 94760

== ENCOUNTER 2023-05-09 09:03 | Day surgery (SDC) | payer OTHER ==
[2023-05-09 09:20] VITALS: BMI 18.1
[2023-05-09 11:58] VITALS: RESP 18
[2023-05-09 12:26] VITALS: BP 125/79; PULSE 94; TEMP 98
== END 2023-05-09 12:30 | disposition home or self-care (01) ==
LOC: FECT 09:03
PROVIDERS: ATTEND Psychiatry & Neurology Psychiatry
PROC: GZB4ZZZ Other Electroconvulsive Therapy (ICD-10-PCS; principal; 2023-05-09 10:53)
DX: F32.A Depression, unspecified (principal)
CPT/HCPCS: 90870; 94760

== ENCOUNTER 2023-05-16 09:27 | Day surgery (SDC) | payer OTHER ==
[2023-05-16 09:47] VITALS: BMI 18.1
[2023-05-16] MEDS ORDERED: LACTATED RINGERS SOLUTION 1,000 ML IV SCH (10:30)
[2023-05-16] MEDS ORDERED: SUCCINYLCHOLINE CHLORIDE 200 MG/10 ML SYRINGE ONE (10:37)
[2023-05-16] MEDS ORDERED: KETAMINE HCL 500 MG/10 ML VIAL ONE (11:25)
[2023-05-16] MEDS ORDERED: KETOROLAC TROMETHAMINE 30 MG/1 ML VIAL ONE (11:27)
[2023-05-16] MEDS ORDERED: DEXAMETHASONE SOD PHOSPHATE 4 MG/1 ML VIAL ONE (11:27)
[2023-05-16] MEDS ORDERED: ONDANSETRON 4 MG/2 ML VIAL ONE (11:27)
[2023-05-16] MEDS ORDERED: PROPOFOL 20 ML ONE (12:03)
[2023-05-16 13:03] VITALS: RESP 18; TEMP 98.1
[2023-05-16 14:20] VITALS: BP 129/76; PULSE 84
== END 2023-05-16 14:30 | disposition home or self-care (01) ==
LOC: FECT 09:27
PROVIDERS: ATTEND Psychiatry & Neurology Psychiatry
PROC: GZB4ZZZ Other Electroconvulsive Therapy (ICD-10-PCS; principal; 2023-05-16 12:08)
DX: F32.A Depression, unspecified (principal)
CPT/HCPCS: 90870; 94760

== ENCOUNTER 2023-05-23 10:59 | Day surgery (SDC) | payer OTHER ==
[2023-05-23 11:33] VITALS: BMI 18.3
[2023-05-23] MEDS ORDERED: KETAMINE HCL 500 MG/10 ML VIAL ONE (12:07)
[2023-05-23 13:02] VITALS: RESP 16
[2023-05-23 13:47] VITALS: TEMP 97.6
[2023-05-23 13:49] VITALS: BP 118/77; PULSE 94
== END 2023-05-23 14:15 | disposition home or self-care (01) ==
LOC: FECT 10:59
PROVIDERS: ATTEND Student in an Organized Health Care Education/Training Program
PROC: GZB4ZZZ Other Electroconvulsive Therapy (ICD-10-PCS; principal; 2023-05-23 12:20)
DX: F32.A Depression, unspecified (principal)
CPT/HCPCS: 90870; 94760

== ENCOUNTER 2023-05-30 09:07 | Day surgery (SDC) | payer OTHER ==
[2023-05-27 14:28] VITALS: BMI 18.3
[2023-05-30] MEDS ORDERED: KETAMINE HCL 500 MG/10 ML VIAL ONE (10:34)
[2023-05-30 11:58] VITALS: RESP 16; TEMP 97.8
[2023-05-30] MEDS ORDERED: LACTATED RINGERS SOLUTION 1,000 ML IV SCH (12:15)
[2023-05-30 12:26] VITALS: BP 118/76; PULSE 82
== END 2023-05-30 12:29 | disposition home or self-care (01) ==
LOC: FECT 09:07
PROVIDERS: ATTEND Student in an Organized Health Care Education/Training Program
PROC: GZB4ZZZ Other Electroconvulsive Therapy (ICD-10-PCS; principal; 2023-05-30 11:01)
DX: F32.A Depression, unspecified (principal)
CPT/HCPCS: 90870; 94760

== ENCOUNTER 2023-06-04 10:29 | Day surgery (SDC) | payer OTHER ==
[2023-06-04 11:20] VITALS: BMI 17.2
[2023-06-04] MEDS ORDERED: KETAMINE HCL 500 MG/10 ML VIAL ONE (12:00)
[2023-06-04 13:10] VITALS: RESP 19; TEMP 97.9
[2023-06-04 13:23] VITALS: BP 124/84; PULSE 78
== END 2023-06-04 14:20 | disposition home or self-care (01) ==
LOC: FECT 10:29
PROVIDERS: ATTEND Student in an Organized Health Care Education/Training Program
PROC: GZB4ZZZ Other Electroconvulsive Therapy (ICD-10-PCS; principal; 2023-06-04 12:19)
DX: F33.2 Major depressive disorder, recurrent severe without psychotic features (principal)
CPT/HCPCS: 90870; 94760

== ENCOUNTER 2023-06-13 10:29 | Day surgery (SDC) | payer OTHER ==
[2023-06-13 11:43] VITALS: BMI 17.2
[2023-06-13 14:49] VITALS: BP 110/76; PULSE 78; RESP 17; TEMP 97
== END 2023-06-13 13:15 | disposition home or self-care (01) ==
LOC: FECT 10:29
PROVIDERS: ATTEND Student in an Organized Health Care Education/Training Program
PROC: GZB4ZZZ Other Electroconvulsive Therapy (ICD-10-PCS; principal; 2023-06-13 11:23)
DX: F32.A Depression, unspecified (principal)
CPT/HCPCS: 90870; 94760

== ENCOUNTER 2023-06-20 10:32 | Day surgery (SDC) | payer OTHER ==
[2023-06-14 15:36] VITALS: BMI 17.2
[2023-06-20] MEDS ORDERED: KETAMINE HCL 100 MG/ML - 5ML VIAL ONE (11:46)
[2023-06-20 12:38] VITALS: TEMP 97.9
[2023-06-20 13:15] VITALS: RESP 18
[2023-06-20 13:30] VITALS: BP 131/86; PULSE 77
== END 2023-06-20 13:35 | disposition home or self-care (01) ==
LOC: FECT 10:32
PROVIDERS: ATTEND Student in an Organized Health Care Education/Training Program
PROC: GZB4ZZZ Other Electroconvulsive Therapy (ICD-10-PCS; principal; 2023-06-20 11:57)
DX: F33.2 Major depressive disorder, recurrent severe without psychotic features (principal)
CPT/HCPCS: 90870; 94760

== ENCOUNTER 2023-06-27 09:19 | Day surgery (SDC) | payer OTHER ==
[2023-06-27 09:34] VITALS: BMI 18.2
[2023-06-27] MEDS ORDERED: KETAMINE HCL 100 MG/ML - 5ML VIAL ONE (10:58)
[2023-06-27 11:58] VITALS: BP 131/85; RESP 16; TEMP 97.9
[2023-06-27 12:35] VITALS: PULSE 88
== END 2023-06-27 12:35 | disposition home or self-care (01) ==
LOC: FECT 09:19
PROVIDERS: ATTEND Student in an Organized Health Care Education/Training Program
PROC: GZB4ZZZ Other Electroconvulsive Therapy (ICD-10-PCS; principal; 2023-06-27 11:13)
DX: F33.2 Major depressive disorder, recurrent severe without psychotic features (principal)
CPT/HCPCS: 90870; 94760

== ENCOUNTER 2023-07-04 09:27 | Day surgery (SDC) | payer OTHER ==
[2023-06-28 13:23] VITALS: BMI 18.2
[2023-07-04] MEDS ORDERED: ONDANSETRON 4 MG/2 ML VIAL ONE (10:46)
[2023-07-04] MEDS ORDERED: DEXAMETHASONE SOD PHOSPHATE 4 MG/1 ML VIAL ONE (10:47)
[2023-07-04] MEDS ORDERED: KETOROLAC TROMETHAMINE 30 MG/1 ML VIAL ONE (10:47)
[2023-07-04] MEDS ORDERED: KETAMINE HCL 100 MG/ML - 5ML VIAL ONE (10:47)
[2023-07-04] MEDS ORDERED: PROPOFOL 20 ML ONE (10:51)
[2023-07-04] MEDS ORDERED: SUCCINYLCHOLINE CHLORIDE 200 MG/10 ML SYRINGE ONE (10:51)
[2023-07-04 12:05] VITALS: TEMP 97.6
[2023-07-04 13:02] VITALS: RESP 16
[2023-07-04 13:53] VITALS: BP 126/71; PULSE 75
== END 2023-07-04 12:30 | disposition home or self-care (01) ==
LOC: FECT 09:27
PROVIDERS: ATTEND Student in an Organized Health Care Education/Training Program
PROC: GZB4ZZZ Other Electroconvulsive Therapy (ICD-10-PCS; principal; 2023-07-04 11:16)
DX: F33.2 Major depressive disorder, recurrent severe without psychotic features (principal)
CPT/HCPCS: 90870; 94760

== ENCOUNTER 2023-07-11 08:25 | Day surgery (SDC) | payer OTHER ==
[2023-07-05 10:47] VITALS: BMI 18.3
[2023-07-11] MEDS ORDERED: KETAMINE HCL 100 MG/ML - 5ML VIAL ONE (09:14)
[2023-07-11 10:53] VITALS: RESP 18; TEMP 98.5
[2023-07-11 11:22] VITALS: BP 121/74; PULSE 78
== END 2023-07-11 11:15 | disposition home or self-care (01) ==
LOC: FECT 08:25
PROVIDERS: ATTEND Student in an Organized Health Care Education/Training Program
PROC: GZB4ZZZ Other Electroconvulsive Therapy (ICD-10-PCS; principal; 2023-07-11 09:51)
DX: F32.A Depression, unspecified (principal)
CPT/HCPCS: 90870; 94760

== ENCOUNTER 2023-07-18 09:17 | Day surgery (SDC) | payer OTHER ==
[2023-07-11 14:07] VITALS: BMI 18.3
[2023-07-18] MEDS ORDERED: KETAMINE HCL 100 MG/ML - 5ML VIAL ONE (11:07)
[2023-07-18 12:19] VITALS: RESP 18; TEMP 97.5
[2023-07-18 12:35] VITALS: BP 114/79; PULSE 73
== END 2023-07-18 13:00 | disposition home or self-care (01) ==
LOC: FECT 09:17
PROVIDERS: ATTEND Student in an Organized Health Care Education/Training Program
PROC: GZB4ZZZ Other Electroconvulsive Therapy (ICD-10-PCS; principal; 2023-07-18 11:20)
DX: F33.2 Major depressive disorder, recurrent severe without psychotic features (principal)
CPT/HCPCS: 90870; 94760

== ENCOUNTER 2023-07-25 06:35 | Day surgery (SDC) | payer OTHER ==
[2023-07-22 13:17] VITALS: BMI 18.3
[2023-07-25] MEDS ORDERED: KETAMINE HCL 100 MG/ML - 5ML VIAL ONE (07:55)
[2023-07-25 08:53] VITALS: RESP 18; TEMP 98
[2023-07-25 09:16] VITALS: BP 130/84; PULSE 85
== END 2023-07-25 09:45 | disposition home or self-care (01) ==
LOC: FECT 06:35
PROVIDERS: ATTEND Psychiatry & Neurology Psychiatry
PROC: GZB4ZZZ Other Electroconvulsive Therapy (ICD-10-PCS; principal; 2023-07-25 08:05)
DX: F33.2 Major depressive disorder, recurrent severe without psychotic features (principal)
CPT/HCPCS: 90870; 94760

== ENCOUNTER 2023-08-01 10:55 | Day surgery (SDC) | payer OTHER ==
[2023-08-01 11:13] VITALS: BMI 18.3
[2023-08-01] MEDS ORDERED: KETAMINE HCL 100 MG/ML - 5ML VIAL ONE (12:00)
[2023-08-01 13:10] VITALS: RESP 18; TEMP 97.6
[2023-08-01 14:13] VITALS: BP 121/87; PULSE 69
== END 2023-08-01 13:30 | disposition home or self-care (01) ==
LOC: FECT 10:55
PROVIDERS: ATTEND Student in an Organized Health Care Education/Training Program
PROC: GZB4ZZZ Other Electroconvulsive Therapy (ICD-10-PCS; principal; 2023-08-01 12:15)
DX: F33.2 Major depressive disorder, recurrent severe without psychotic features (principal)
CPT/HCPCS: 90870; 94760

== ENCOUNTER 2023-08-08 08:07 | Day surgery (SDC) | payer OTHER ==
[2023-08-01 14:05] VITALS: BMI 18.3
[2023-08-08 08:18] VITALS: RESP 18
[2023-08-08] MEDS ORDERED: KETAMINE HCL 100 MG/ML - 5ML VIAL ONE (10:03)
[2023-08-08] MEDS ORDERED: SUCCINYLCHOLINE CHLORIDE 200 MG/10 ML SYRINGE ONE (11:41)
[2023-08-08 14:27] VITALS: BP 112/81; PULSE 77; TEMP 97.9
== END 2023-08-08 12:40 | disposition home or self-care (01) ==
LOC: FECT 08:07
PROVIDERS: ATTEND Student in an Organized Health Care Education/Training Program
PROC: GZB4ZZZ Other Electroconvulsive Therapy (ICD-10-PCS; principal; 2023-08-08 11:06)
DX: F32.A Depression, unspecified (principal)
CPT/HCPCS: 90870; 94760

== ENCOUNTER 2023-08-15 09:08 | Day surgery (SDC) | payer OTHER ==
[2023-08-08 17:34] VITALS: BMI 18.3
[2023-08-15] MEDS ORDERED: KETAMINE HCL 100 MG/ML - 5ML VIAL ONE (10:39)
[2023-08-15 11:18] VITALS: TEMP 97.6
[2023-08-15 11:43] VITALS: RESP 16
[2023-08-15 12:26] VITALS: BP 129/75; PULSE 98
== END 2023-08-15 12:20 | disposition home or self-care (01) ==
LOC: FECT 09:08
PROVIDERS: ATTEND Student in an Organized Health Care Education/Training Program
PROC: GZB4ZZZ Other Electroconvulsive Therapy (ICD-10-PCS; principal; 2023-08-15 10:52)
DX: F32.9 Major depressive disorder, single episode, unspecified (principal)
CPT/HCPCS: 90870; 94760

== ENCOUNTER 2023-08-22 09:35 | Day surgery (SDC) | payer OTHER ==
[2023-08-22 10:03] VITALS: BMI 17.6
[2023-08-22 10:49] LABS: HEMATOCRIT 38.3 % (35.4-49); MCH 31.4 pg (25.7-33.7); MEAN CELL VOLUME 92.6 fl (80-96); MEAN PLT VOLUME 7.1 fl (7.5-11.1); PLATELET COUNT 290.3 10^3/uL (134-434); RBC 4.14 10^6/uL (4.00-5.60); RDW 14.4 % (11.9-15.9); WHITE BLOOD COUNT 6.8 10^3/uL (4.0-10.8)
[2023-08-22 11:02] LABS: ALBUMIN 4.6 g/dl (3.4-5.0); BILIRUBIN,TOTAL 0.3 mg/dl (0.2-1); CALCIUM 9.6 mg/dl (8.5-10.1); TOT PROT 6.8 g/dl (6.4-8.2)
[2023-08-22] MEDS ORDERED: KETOROLAC TROMETHAMINE 30 MG/1 ML VIAL ONE (11:24)
[2023-08-22] MEDS ORDERED: DEXAMETHASONE SOD PHOSPHATE 4 MG/1 ML VIAL ONE (11:24)
[2023-08-22] MEDS ORDERED: ONDANSETRON 4 MG/2 ML VIAL ONE (11:24)
[2023-08-22] MEDS ORDERED: PROPOFOL 20 ML ONE (11:25)
[2023-08-22] MEDS ORDERED: SUCCINYLCHOLINE CHLORIDE 200 MG/10 ML SYRINGE ONE (11:36)
[2023-08-22 12:16] VITALS: TEMP 98
[2023-08-22 12:39] VITALS: RESP 18
[2023-08-22 13:22] VITALS: BP 133/90; PULSE 84
== END 2023-08-22 13:30 | disposition home or self-care (01) ==
LOC: FECT 09:35
PROVIDERS: ATTEND Student in an Organized Health Care Education/Training Program
PROC: GZB4ZZZ Other Electroconvulsive Therapy (ICD-10-PCS; principal; 2023-08-22 11:42)
DX: F32.A Depression, unspecified (principal)
CPT/HCPCS: 36415; 80053; 85027; 90870; 93005; 94760

== ENCOUNTER 2023-08-29 10:54 | Day surgery (SDC) | payer OTHER ==
[2023-08-29 11:17] VITALS: RESP 18; TEMP 97.2; BMI 17.6
[2023-08-29] MEDS ORDERED: KETAMINE HCL 100 MG/ML - 5ML VIAL ONE (12:06)
[2023-08-29 16:09] VITALS: BP 129/87; PULSE 74
== END 2023-08-29 14:10 | disposition home or self-care (01) ==
LOC: FECT 10:54
PROVIDERS: ATTEND Student in an Organized Health Care Education/Training Program
PROC: GZB4ZZZ Other Electroconvulsive Therapy (ICD-10-PCS; principal; 2023-08-29 12:29)
DX: F32.A Depression, unspecified (principal)
CPT/HCPCS: 90870; 94760

== ENCOUNTER 2023-09-05 08:46 | Day surgery (SDC) | payer OTHER ==
[2023-08-30 14:20] VITALS: BMI 17.6
[2023-09-05] MEDS ORDERED: KETAMINE HCL 100 MG/ML - 5ML VIAL ONE (10:42)
[2023-09-05] MEDS ORDERED: ONDANSETRON 4 MG/2 ML VIAL ONE (10:44)
[2023-09-05] MEDS ORDERED: DEXAMETHASONE SOD PHOSPHATE 4 MG/1 ML VIAL ONE (10:44)
[2023-09-05] MEDS ORDERED: KETOROLAC TROMETHAMINE 30 MG/1 ML VIAL ONE (10:44)
[2023-09-05 11:42] VITALS: BP 121/72; PULSE 77; RESP 16; TEMP 97.3
== END 2023-09-05 12:40 | disposition home or self-care (01) ==
LOC: FECT 08:46
PROVIDERS: ATTEND Student in an Organized Health Care Education/Training Program
PROC: GZB4ZZZ Other Electroconvulsive Therapy (ICD-10-PCS; principal; 2023-09-05 10:49)
DX: F32.A Depression, unspecified (principal)
CPT/HCPCS: 90870; 94760

== ENCOUNTER 2023-09-12 08:07 | Day surgery (SDC) | payer OTHER ==
[2023-09-12 08:28] VITALS: BMI 17.6
[2023-09-12] MEDS ORDERED: LACTATED RINGERS SOLUTION 1,000 ML IV SCH (09:45)
[2023-09-12] MEDS ORDERED: KETAMINE HCL 100 MG/ML - 5ML VIAL ONE (09:54)
[2023-09-12 11:03] VITALS: TEMP 98
[2023-09-12 11:08] VITALS: BP 124/80; PULSE 76; RESP 20
== END 2023-09-12 11:50 | disposition home or self-care (01) ==
LOC: FECT 08:07
PROVIDERS: ATTEND Psychiatry & Neurology Psychiatry
PROC: GZB4ZZZ Other Electroconvulsive Therapy (ICD-10-PCS; principal; 2023-09-12 10:09)
DX: F32.A Depression, unspecified (principal)
CPT/HCPCS: 90870; 94760

== ENCOUNTER 2023-09-19 09:40 | Day surgery (SDC) | payer OTHER ==
[2023-09-19] MEDS ORDERED: KETAMINE HCL 100 MG/ML - 5ML VIAL ONE (11:31)
[2023-09-19 12:47] VITALS: BP 111/78; PULSE 72; RESP 16; TEMP 97.7
== END 2023-09-19 13:30 | disposition home or self-care (01) ==
LOC: FECT 09:40
PROVIDERS: ATTEND Student in an Organized Health Care Education/Training Program
PROC: GZB4ZZZ Other Electroconvulsive Therapy (ICD-10-PCS; principal; 2023-09-19 11:46)
DX: F33.2 Major depressive disorder, recurrent severe without psychotic features (principal)
CPT/HCPCS: 90870; 94760

== ENCOUNTER 2023-09-26 09:06 | Day surgery (SDC) | payer OTHER ==
[2023-09-26 09:29] VITALS: BMI 17.8
[2023-09-26] MEDS ORDERED: KETAMINE HCL 100 MG/ML - 5ML VIAL ONE (11:27)
[2023-09-26 12:32] VITALS: TEMP 97.1
[2023-09-26 13:24] VITALS: RESP 18
[2023-09-26 13:41] VITALS: BP 123/69; PULSE 88
== END 2023-09-26 13:00 | disposition home or self-care (01) ==
LOC: FECT 09:06
PROVIDERS: ATTEND Student in an Organized Health Care Education/Training Program
PROC: GZB4ZZZ Other Electroconvulsive Therapy (ICD-10-PCS; principal; 2023-09-26 11:43)
DX: F32.A Depression, unspecified (principal)
CPT/HCPCS: 90870; 94760

== ENCOUNTER 2023-10-03 09:37 | Day surgery (SDC) | payer OTHER ==
[2023-09-27 12:54] VITALS: BMI 17.8
[2023-10-03] MEDS ORDERED: KETAMINE HCL 100 MG/ML - 5ML VIAL ONE (10:49)
[2023-10-03 11:41] VITALS: RESP 18; TEMP 97.8
[2023-10-03 12:54] VITALS: BP 125/84; PULSE 78
== END 2023-10-03 12:15 | disposition home or self-care (01) ==
LOC: FECT 09:37
PROVIDERS: ATTEND Student in an Organized Health Care Education/Training Program
PROC: GZB4ZZZ Other Electroconvulsive Therapy (ICD-10-PCS; principal; 2023-10-03 10:58)
DX: F32.A Depression, unspecified (principal)
CPT/HCPCS: 90870; 94760

== ENCOUNTER 2023-10-10 10:15 | Day surgery (SDC) | payer OTHER ==
[2023-10-03 13:01] VITALS: BMI 17.8
[2023-10-10] MEDS ORDERED: KETAMINE HCL 100 MG/ML - 5ML VIAL ONE (11:51)
[2023-10-10 13:15] VITALS: RESP 18; TEMP 97.2
[2023-10-10 13:23] VITALS: BP 131/81; PULSE 84
== END 2023-10-10 13:30 | disposition home or self-care (01) ==
LOC: FECT 10:15
PROVIDERS: ATTEND Student in an Organized Health Care Education/Training Program
PROC: GZB4ZZZ Other Electroconvulsive Therapy (ICD-10-PCS; principal; 2023-10-10 12:11)
DX: F33.2 Major depressive disorder, recurrent severe without psychotic features (principal)
CPT/HCPCS: 90870; 94760

== ENCOUNTER 2023-10-17 10:57 | Day surgery (SDC) | payer OTHER ==
[2023-10-10 15:49] VITALS: BMI 17.7
[2023-10-17] MEDS ORDERED: KETAMINE HCL 100 MG/ML - 5ML VIAL ONE (12:16)
[2023-10-17 15:12] VITALS: RESP 18; TEMP 98
[2023-10-17 15:14] VITALS: BP 111/76; PULSE 72
== END 2023-10-17 13:55 | disposition home or self-care (01) ==
LOC: FECT 10:57
PROVIDERS: ATTEND Student in an Organized Health Care Education/Training Program
PROC: GZB4ZZZ Other Electroconvulsive Therapy (ICD-10-PCS; principal; 2023-10-17 11:33)
DX: F32.A Depression, unspecified (principal)
CPT/HCPCS: 90870; 94760

== ENCOUNTER 2023-10-24 11:07 | Day surgery (SDC) | payer OTHER ==
[2023-10-24 11:29] VITALS: RESP 18; BMI 17.9
[2023-10-24] MEDS ORDERED: KETAMINE HCL 100 MG/ML - 5ML VIAL ONE (13:27)
[2023-10-24 15:03] VITALS: TEMP 97.9
[2023-10-24 15:14] VITALS: BP 115/84; PULSE 71
== END 2023-10-24 15:35 | disposition home or self-care (01) ==
LOC: FECT 11:07
PROVIDERS: ATTEND Student in an Organized Health Care Education/Training Program
PROC: GZB4ZZZ Other Electroconvulsive Therapy (ICD-10-PCS; principal; 2023-10-24 13:42)
DX: F32.A Depression, unspecified (principal)
CPT/HCPCS: 90870; 94760

== ENCOUNTER 2023-10-31 08:53 | Day surgery (SDC) | payer OTHER ==
[2023-10-31] MEDS ORDERED: KETAMINE HCL 100 MG/ML - 5ML VIAL ONE (10:56)
[2023-10-31 12:14] VITALS: RESP 18; TEMP 97.1; BMI 17.9
[2023-10-31 12:26] VITALS: BP 125/79; PULSE 77
== END 2023-10-31 12:45 | disposition home or self-care (01) ==
LOC: FECT 08:53
PROVIDERS: ATTEND Psychiatry & Neurology Psychiatry
PROC: GZB4ZZZ Other Electroconvulsive Therapy (ICD-10-PCS; principal; 2023-10-31 11:06)
DX: F32.A Depression, unspecified (principal)
CPT/HCPCS: 90870; 94760

== ENCOUNTER 2023-11-07 08:36 | Day surgery (SDC) | payer OTHER ==
[2023-11-01 10:20] VITALS: BMI 17.9
[2023-11-07] MEDS ORDERED: KETAMINE HCL 100 MG/ML - 5ML VIAL ONE (10:12)
[2023-11-07 11:50] VITALS: RESP 18; TEMP 97.9
[2023-11-07 12:08] VITALS: BP 120/84; PULSE 66
== END 2023-11-07 12:45 | disposition home or self-care (01) ==
LOC: FASU 08:36
PROVIDERS: ATTEND Student in an Organized Health Care Education/Training Program
PROC: GZB4ZZZ Other Electroconvulsive Therapy (ICD-10-PCS; principal; 2023-11-07 10:46)
DX: F33.2 Major depressive disorder, recurrent severe without psychotic features (principal)
CPT/HCPCS: 90870; 94760

== ENCOUNTER → 2023-11-14 | Day surgery (SDC) | payer OTHER ==
[~2023-11-14] MED LIST changes: +KETAMINE HCL 100 MG/ML - 5ML VIAL ONE; -LACTATED RINGERS SOLUTION 1,000 ML IV SCH; -ONDANSETRON 4 MG/2 ML VIAL IVPUSH PRN
[2023-11-14 09:34] VITALS: TEMP 97.3
[2023-11-14 09:37] VITALS: BMI 18.6
[2023-11-14 12:15] VITALS: RESP 16
[2023-11-14 12:28] VITALS: BP 118/76; PULSE 88
== END | disposition home or self-care (01) ==
LOC: FECT 09:12
PROVIDERS: ATTEND Student in an Organized Health Care Education/Training Program
PROC: GZB4ZZZ Other Electroconvulsive Therapy (ICD-10-PCS; principal; 2023-11-14 11:23)
DX: F32.A Depression, unspecified (principal)
CPT/HCPCS: 90870; 94760

== ENCOUNTER 2023-11-21 09:01 | Day surgery (SDC) | payer OTHER ==
[2023-11-21 09:32] VITALS: BMI 18.5
[2023-11-21] MEDS ORDERED: PROPOFOL 20 ML ONE (10:02)
[2023-11-21] MEDS ORDERED: KETAMINE HCL 200 MG/20 ML VIAL ONE (10:02)
[2023-11-21] MEDS ORDERED: SUCCINYLCHOLINE CHLORIDE 200 MG/10 ML SYRINGE ONE (10:02)
[2023-11-21] MEDS ORDERED: KETOROLAC TROMETHAMINE 30 MG/1 ML VIAL ONE (10:03)
[2023-11-21] MEDS ORDERED: ONDANSETRON 4 MG/2 ML VIAL ONE (10:03)
[2023-11-21 11:11] VITALS: RESP 16; TEMP 97.1
[2023-11-21 11:43] VITALS: BP 114/76; PULSE 90
== END 2023-11-21 11:55 | disposition home or self-care (01) ==
LOC: FECT 09:01
PROVIDERS: ATTEND Student in an Organized Health Care Education/Training Program
PROC: GZB4ZZZ Other Electroconvulsive Therapy (ICD-10-PCS; principal; 2023-11-21 10:19)
DX: F33.2 Major depressive disorder, recurrent severe without psychotic features (principal)
CPT/HCPCS: 90870; 94760

== ENCOUNTER 2023-11-28 09:32 | Day surgery (SDC) | payer OTHER ==
[2023-11-22 13:26] VITALS: BMI 18.5
[2023-11-28] MEDS ORDERED: KETAMINE HCL 100 MG/ML - 5ML VIAL ONE (11:44)
[2023-11-28] MEDS ORDERED: PROMETHAZINE HCL 25 MG/1 ML VIAL IVPB PRN (12:10)
[2023-11-28] MEDS ORDERED: ACETAMINOPHEN 325 MG TABLET (FP) PO PRN (12:10)
[2023-11-28] MEDS ORDERED: LACTATED RINGERS SOLUTION 1,000 ML IV SCH (12:15)
[2023-11-28 12:51] VITALS: TEMP 97.9
[2023-11-28 13:09] VITALS: BP 118/76; PULSE 70; RESP 19
== END 2023-11-28 13:13 | disposition home or self-care (01) ==
LOC: FECT 09:32
PROVIDERS: ATTEND Student in an Organized Health Care Education/Training Program
PROC: GZB4ZZZ Other Electroconvulsive Therapy (ICD-10-PCS; principal; 2023-11-28 11:54)
DX: F32.A Depression, unspecified (principal)
CPT/HCPCS: 90870; 94760

== ENCOUNTER 2023-12-05 09:05 | Day surgery (SDC) | payer OTHER ==
[2023-12-05 09:32] VITALS: BMI 18.3
[2023-12-05] MEDS ORDERED: KETAMINE HCL 100 MG/ML - 5ML VIAL ONE (10:22)
[2023-12-05 12:19] VITALS: RESP 16; TEMP 97.3
[2023-12-05 12:50] VITALS: BP 118/85; PULSE 84
== END 2023-12-05 12:48 | disposition home or self-care (01) ==
LOC: FECT 09:05
PROVIDERS: ATTEND Student in an Organized Health Care Education/Training Program
PROC: GZB4ZZZ Other Electroconvulsive Therapy (ICD-10-PCS; principal; 2023-12-05 11:27)
DX: F32.A Depression, unspecified (principal)
CPT/HCPCS: 90870; 94760

== ENCOUNTER 2023-12-12 09:32 | Day surgery (SDC) | payer OTHER ==
[2023-12-12] MEDS ORDERED: LACTATED RINGERS SOLUTION 1,000 ML IV SCH (09:45)
[2023-12-12 09:52] VITALS: BMI 18.6
[2023-12-12] MEDS ORDERED: KETAMINE HCL 100 MG/ML - 5ML VIAL ONE (10:17)
[2023-12-12 12:02] VITALS: RESP 18; TEMP 97.5
[2023-12-12 12:32] VITALS: BP 116/77; PULSE 66
== END 2023-12-12 12:30 | disposition home or self-care (01) ==
LOC: FECT 09:32
PROVIDERS: ATTEND Student in an Organized Health Care Education/Training Program
PROC: GZB4ZZZ Other Electroconvulsive Therapy (ICD-10-PCS; principal; 2023-12-12 11:00)
DX: F32.A Depression, unspecified (principal)
CPT/HCPCS: 90870; 94760

== ENCOUNTER 2023-12-19 09:33 | Day surgery (SDC) | payer OTHER ==
[2023-12-19 09:46] VITALS: RESP 16
[2023-12-19] MEDS ORDERED: KETAMINE HCL 100 MG/ML - 5ML VIAL ONE (10:11)
[2023-12-19 11:37] VITALS: TEMP 97.1
[2023-12-19 11:54] VITALS: BMI 18.9
[2023-12-19 11:57] VITALS: BP 127/87; PULSE 82
== END 2023-12-19 12:15 | disposition home or self-care (01) ==
LOC: FECT 09:33
PROVIDERS: ATTEND Student in an Organized Health Care Education/Training Program
PROC: GZB4ZZZ Other Electroconvulsive Therapy (ICD-10-PCS; principal; 2023-12-19 10:40)
DX: F32.A Depression, unspecified (principal)
CPT/HCPCS: 90870; 94760

== ENCOUNTER 2023-12-26 06:50 | Day surgery (SDC) | payer OTHER ==
[2023-12-26] MEDS ORDERED: KETAMINE HCL 100 MG/ML - 5ML VIAL ONE (07:48)
[2023-12-26 08:21] VITALS: TEMP 97.1
[2023-12-26 09:12] VITALS: RESP 18
[2023-12-26 09:16] VITALS: BP 124/88; PULSE 69
== END 2023-12-26 09:30 | disposition home or self-care (01) ==
LOC: FECT 06:50
PROVIDERS: ATTEND Student in an Organized Health Care Education/Training Program
PROC: GZB4ZZZ Other Electroconvulsive Therapy (ICD-10-PCS; principal; 2023-12-26 08:04)
DX: F32.A Depression, unspecified (principal)
CPT/HCPCS: 90870; 94760

== ENCOUNTER 2024-01-02 08:44 | Day surgery (SDC) | payer OTHER ==
[2024-01-02 09:24] VITALS: TEMP 97.2; BMI 19.5
[2024-01-02] MEDS ORDERED: KETAMINE HCL 100 MG/ML - 5ML VIAL ONE (10:13)
[2024-01-02 11:17] VITALS: PULSE 68; RESP 18
[2024-01-02 12:12] VITALS: BP 120/80
== END 2024-01-02 12:12 | disposition home or self-care (01) ==
LOC: FECT 08:44
PROVIDERS: ATTEND Student in an Organized Health Care Education/Training Program
PROC: GZB4ZZZ Other Electroconvulsive Therapy (ICD-10-PCS; principal; 2024-01-02 10:27)
DX: F32.A Depression, unspecified (principal)
CPT/HCPCS: 90870; 94760

== ENCOUNTER 2024-01-09 06:04 | Day surgery (SDC) | payer OTHER ==
[2024-01-09 06:42] VITALS: BMI 20.4
[2024-01-09] MEDS ORDERED: KETAMINE HCL 100 MG/ML - 5ML VIAL ONE (07:12)
[2024-01-09 08:16] VITALS: TEMP 97.1
[2024-01-09 08:41] VITALS: RESP 20
[2024-01-09 09:11] VITALS: BP 117/72; PULSE 74
== END 2024-01-09 09:15 | disposition home or self-care (01) ==
LOC: FECT 06:04
PROVIDERS: ATTEND Student in an Organized Health Care Education/Training Program
PROC: GZB4ZZZ Other Electroconvulsive Therapy (ICD-10-PCS; principal; 2024-01-09 07:42)
DX: F32.A Depression, unspecified (principal)
CPT/HCPCS: 90870; 94760

== ENCOUNTER 2024-01-14 07:29 | Day surgery (SDC) | payer OTHER ==
[2024-01-14 07:53] VITALS: RESP 16; BMI 19.3
[2024-01-14] MEDS ORDERED: KETAMINE HCL 100 MG/ML - 5ML VIAL ONE (10:28)
[2024-01-14 11:32] VITALS: TEMP 97.6
[2024-01-14 12:22] VITALS: BP 123/80; PULSE 86
== END 2024-01-14 12:22 | disposition home or self-care (01) ==
LOC: FECT 07:29
PROVIDERS: ATTEND Student in an Organized Health Care Education/Training Program
PROC: GZB4ZZZ Other Electroconvulsive Therapy (ICD-10-PCS; principal; 2024-01-14 10:40)
DX: F33.2 Major depressive disorder, recurrent severe without psychotic features (principal)
CPT/HCPCS: 90870; 94760

== ENCOUNTER 2024-01-21 07:35 | Day surgery (SDC) | payer OTHER ==
[2024-01-14 11:11] VITALS: BMI 19.3
[~2024-01-21 07:35] MED LIST changes: +ACETAMINOPHEN 325 MG TABLET (FP) PO PRN; -KETAMINE HCL 100 MG/ML - 5ML VIAL ONE; +LACTATED RINGERS SOLUTION 1,000 ML IV SCH; +PROMETHAZINE HCL 25 MG/1 ML VIAL IVPB PRN
[2024-01-21] MEDS ORDERED: KETAMINE HCL 100 MG/ML - 5ML VIAL ONE (08:53)
[2024-01-21 09:45] VITALS: RESP 18
[2024-01-21 10:30] VITALS: BP 131/74; PULSE 71; TEMP 97.9
== END 2024-01-21 10:30 | disposition home or self-care (01) ==
LOC: FECT 07:35
PROVIDERS: ATTEND Student in an Organized Health Care Education/Training Program
PROC: GZB4ZZZ Other Electroconvulsive Therapy (ICD-10-PCS; principal; 2024-01-21 09:04)
DX: F32.A Depression, unspecified (principal)
CPT/HCPCS: 90870; 94760

== ENCOUNTER 2024-01-30 08:39 | Day surgery (SDC) | payer OTHER ==
[2024-01-30 09:04] VITALS: BMI 19.5
[2024-01-30] MEDS ORDERED: KETAMINE HCL 100 MG/ML - 5ML VIAL ONE (10:20)
[2024-01-30] MEDS ORDERED: ONDANSETRON 4 MG/2 ML VIAL ONE (11:07)
[2024-01-30] MEDS ORDERED: KETOROLAC TROMETHAMINE 30 MG/1 ML VIAL ONE (11:07)
[2024-01-30 11:29] VITALS: TEMP 97.2
[2024-01-30 12:26] VITALS: BP 131/88; PULSE 77; RESP 18
== END 2024-01-30 12:30 | disposition home or self-care (01) ==
LOC: FECT 08:39
PROVIDERS: ATTEND Student in an Organized Health Care Education/Training Program
PROC: GZB4ZZZ Other Electroconvulsive Therapy (ICD-10-PCS; principal; 2024-01-30 11:12)
DX: F32.A Depression, unspecified (principal)
CPT/HCPCS: 90870; 94760

== ENCOUNTER 2024-02-13 08:30 | Day surgery (SDC) | payer OTHER ==
[2024-02-05 14:43] VITALS: BMI 19.5
[2024-02-13] MEDS ORDERED: KETAMINE HCL 100 MG/ML - 5ML VIAL ONE (10:15)
[2024-02-13 11:46] VITALS: TEMP 97.9
[2024-02-13 11:48] VITALS: BP 128/76; PULSE 77; RESP 19
== END 2024-02-13 12:20 | disposition home or self-care (01) ==
LOC: FECT 08:30
PROVIDERS: ATTEND Psychiatry & Neurology Psychiatry
PROC: GZB4ZZZ Other Electroconvulsive Therapy (ICD-10-PCS; principal; 2024-02-13 10:29)
DX: F32.A Depression, unspecified (principal)
CPT/HCPCS: 90870; 94760

== ENCOUNTER 2024-02-20 08:41 | Day surgery (SDC) | payer OTHER ==
[2024-02-14 15:54] VITALS: BMI 19.5
[2024-02-20 09:28] LABS: HEMATOCRIT 44.7 % (35.4-49); HEMOGLOBIN 14.7 G/dL (11.7-16.9); MCH 30.3 pg (25.7-33.7); MCHC 32.8 g/dl (32.0-35.9); MEAN CELL VOLUME 92.2 fl (80-96); MEAN PLT VOLUME 7.5 fl (7.5-11.1); PLATELET COUNT 245.4 10^3/uL (134-434); RBC 4.85 10^6/uL (4.00-5.60); RDW 15.1 % (11.9-15.9); WHITE BLOOD COUNT 7.3 10^3/uL (4.0-10.8)
[2024-02-20 09:33] LABS: ALBUMIN 4.6 g/dl (3.4-5.0); BILIRUBIN,TOTAL 0.3 mg/dl (0.2-1); CALCIUM 9.6 mg/dl (8.5-10.1); POTASSIUM 3.6 mmol/L (3.5-5.1); TOT PROT 6.7 g/dl (6.4-8.2)
[2024-02-20] MEDS ORDERED: KETAMINE HCL 100 MG/ML - 5ML VIAL ONE (09:40)
[2024-02-20 09:51] LABS: PLATELET ESTIMATE ADEQUATE
[2024-02-20 10:29] VITALS: TEMP 98.4
[2024-02-20 10:35] VITALS: RESP 16
[2024-02-20 10:45] VITALS: PULSE 72
[2024-02-20 12:02] VITALS: BP 116/74
== END 2024-02-20 11:55 | disposition home or self-care (01) ==
LOC: FECT 08:41
PROVIDERS: ATTEND Psychiatry & Neurology Psychiatry
PROC: GZB4ZZZ Other Electroconvulsive Therapy (ICD-10-PCS; principal; 2024-02-20 10:01)
DX: F32.A Depression, unspecified (principal)
CPT/HCPCS: 36415; 80053; 85027; 90870; 93005; 94760

== ENCOUNTER 2024-02-27 09:33 | Day surgery (SDC) | payer OTHER ==
[2024-02-27 09:47] VITALS: BMI 19.8
[2024-02-27] MEDS ORDERED: KETAMINE HCL 100 MG/ML - 5ML VIAL ONE (10:31)
[2024-02-27 11:09] VITALS: RESP 16
[2024-02-27 11:45] VITALS: BP 122/75; TEMP 97.9
[2024-02-27 12:18] VITALS: PULSE 92
== END 2024-02-27 12:48 | disposition home or self-care (01) ==
LOC: FECT 09:33
PROVIDERS: ATTEND Psychiatry & Neurology Psychiatry
PROC: GZB4ZZZ Other Electroconvulsive Therapy (ICD-10-PCS; principal; 2024-02-27 10:48)
DX: F32.A Depression, unspecified (principal)
CPT/HCPCS: 90870; 94760

== ENCOUNTER 2024-03-05 08:50 | Day surgery (SDC) | payer OTHER ==
[2024-02-27 15:35] VITALS: BMI 19.8
[2024-03-05] MEDS ORDERED: KETAMINE HCL 100 MG/ML - 5ML VIAL ONE (11:15)
[2024-03-05 12:29] VITALS: RESP 19; TEMP 97.6
[2024-03-05 12:30] VITALS: BP 132/82; PULSE 86
== END 2024-03-05 13:04 | disposition home or self-care (01) ==
LOC: FECT 08:50
PROVIDERS: ATTEND Psychiatry & Neurology Psychiatry
PROC: GZB4ZZZ Other Electroconvulsive Therapy (ICD-10-PCS; principal; 2024-03-05 11:25)
DX: F32.A Depression, unspecified (principal)
CPT/HCPCS: 90870; 94760

== ENCOUNTER 2024-03-12 08:33 | Day surgery (SDC) | payer OTHER ==
[2024-03-12] MEDS ORDERED: SUCCINYLCHOLINE CHLORIDE 200 MG/10 ML SYRINGE ONE (10:23)
[2024-03-12] MEDS ORDERED: KETAMINE HCL 100 MG/ML - 5ML VIAL ONE (10:23)
[2024-03-12] MEDS ORDERED: DEXAMETHASONE SOD PHOSPHATE 4 MG/1 ML VIAL ONE ×2 (10:25→11:04)
[2024-03-12] MEDS ORDERED: ONDANSETRON 4 MG/2 ML VIAL ONE ×2 (10:25→11:04)
[2024-03-12 11:06] VITALS: RESP 16
[2024-03-12 11:53] VITALS: TEMP 96.9
[2024-03-12 11:56] VITALS: BP 129/72; PULSE 96
== END 2024-03-12 12:05 | disposition home or self-care (01) ==
LOC: FECT 08:33
PROVIDERS: ATTEND Psychiatry & Neurology Psychiatry
PROC: GZB4ZZZ Other Electroconvulsive Therapy (ICD-10-PCS; principal; 2024-03-12 10:30)
DX: F32.A Depression, unspecified (principal)
CPT/HCPCS: 90870; 94760

== ENCOUNTER → 2024-03-19 | Day surgery (SDC) | payer OTHER ==
[~2024-03-19] MED LIST changes: -ACETAMINOPHEN 325 MG TABLET (FP) PO PRN; +KETAMINE HCL 100 MG/ML - 5ML VIAL ONE; -LACTATED RINGERS SOLUTION 1,000 ML IV SCH; -PROMETHAZINE HCL 25 MG/1 ML VIAL IVPB PRN
[2024-03-19 11:46] VITALS: RESP 16
[2024-03-19 12:16] VITALS: PULSE 78; TEMP 96.8
[2024-03-19 13:00] VITALS: BP 129/91
== END | disposition home or self-care (01) ==
LOC: FECT 09:07
PROVIDERS: ATTEND Student in an Organized Health Care Education/Training Program
PROC: GZB4ZZZ Other Electroconvulsive Therapy (ICD-10-PCS; principal; 2024-03-19 11:32)
DX: F32.A Depression, unspecified (principal)
CPT/HCPCS: 90870; 94760

== ENCOUNTER → 2024-03-26 | Day surgery (SDC) | payer OTHER ==
[2024-03-26 10:23] VITALS: TEMP 97.3
[2024-03-26 11:34] VITALS: BP 132/82; PULSE 89; RESP 18
== END | disposition home or self-care (01) ==
LOC: FECT 08:23
PROVIDERS: ATTEND Student in an Organized Health Care Education/Training Program
PROC: GZB4ZZZ Other Electroconvulsive Therapy (ICD-10-PCS; principal; 2024-03-26 10:08)
DX: F32.A Depression, unspecified (principal)
CPT/HCPCS: 90870; 94760

== ENCOUNTER 2024-04-02 09:02 | Day surgery (SDC) | payer OTHER ==
[2024-04-02 09:26] VITALS: BMI 19.8
[2024-04-02 11:49] VITALS: RESP 18; TEMP 98
[2024-04-02 12:02] VITALS: BP 136/89; PULSE 79
== END 2024-04-02 12:05 | disposition home or self-care (01) ==
LOC: FECT 09:02
PROVIDERS: ATTEND Psychiatry & Neurology Psychiatry
PROC: GZB4ZZZ Other Electroconvulsive Therapy (ICD-10-PCS; principal; 2024-04-02 10:45)
DX: F32.A Depression, unspecified (principal)
CPT/HCPCS: 90870; 94760

== ENCOUNTER 2024-04-09 08:21 | Day surgery (SDC) | payer OTHER ==
[2024-04-02 14:36] VITALS: BMI 19.7
[2024-04-09] MEDS ORDERED: KETAMINE HCL 100 MG/ML - 5ML VIAL ONE (10:22)
[2024-04-09 11:29] VITALS: RESP 16; TEMP 97.3
[2024-04-09 13:55] VITALS: BP 122/82; PULSE 78
== END 2024-04-09 12:15 | disposition home or self-care (01) ==
LOC: FECT 08:21
PROVIDERS: ATTEND Psychiatry & Neurology Psychiatry
PROC: GZB4ZZZ Other Electroconvulsive Therapy (ICD-10-PCS; principal; 2024-04-09 10:45)
DX: F32.A Depression, unspecified (principal)
CPT/HCPCS: 90870; 94760

== ENCOUNTER 2024-04-16 09:15 | Day surgery (SDC) | payer OTHER ==
[2024-04-16 09:36] VITALS: BMI 19.5
[2024-04-16] MEDS ORDERED: KETAMINE HCL 100 MG/ML - 5ML VIAL ONE (11:40)
[2024-04-16] MEDS ORDERED: PROPOFOL 20 ML ONE (11:48)
[2024-04-16 12:24] VITALS: TEMP 97.3
[2024-04-16 13:06] VITALS: RESP 18
[2024-04-16 13:10] VITALS: BP 131/85; PULSE 75
== END 2024-04-16 13:30 | disposition home or self-care (01) ==
LOC: FECT 09:15
PROVIDERS: ATTEND Student in an Organized Health Care Education/Training Program
PROC: GZB4ZZZ Other Electroconvulsive Therapy (ICD-10-PCS; principal; 2024-04-16 11:57)
DX: F32.A Depression, unspecified (principal)
CPT/HCPCS: 90870; 94760

== ENCOUNTER 2024-04-23 07:52 | Day surgery (SDC) | payer OTHER ==
[2024-04-16 14:35] VITALS: BMI 19.5
[2024-04-23] MEDS ORDERED: KETAMINE HCL 100 MG/ML - 5ML VIAL ONE (10:21)
[2024-04-23 11:35] VITALS: PULSE 74; RESP 16; TEMP 97.9
[2024-04-23 11:51] VITALS: BP 125/82
== END 2024-04-23 12:37 | disposition home or self-care (01) ==
LOC: FECT 07:52
PROVIDERS: ATTEND Student in an Organized Health Care Education/Training Program
PROC: GZB4ZZZ Other Electroconvulsive Therapy (ICD-10-PCS; principal; 2024-04-23 10:44)
DX: F32.A Depression, unspecified (principal)
CPT/HCPCS: 90870; 94760

== ENCOUNTER 2024-04-30 08:29 | Day surgery (SDC) | payer OTHER ==
[2024-04-28 15:19] VITALS: BMI 19.5
[2024-04-30 08:46] VITALS: TEMP 97.8
[2024-04-30] MEDS ORDERED: KETOROLAC TROMETHAMINE 30 MG/1 ML VIAL ONE (10:51)
[2024-04-30] MEDS ORDERED: DEXAMETHASONE SOD PHOSPHATE 4 MG/1 ML VIAL ONE (10:51)
[2024-04-30] MEDS ORDERED: KETAMINE HCL 100 MG/ML - 5ML VIAL ONE (10:51)
[2024-04-30] MEDS ORDERED: ONDANSETRON 4 MG/2 ML VIAL ONE (10:51)
[2024-04-30] MEDS ORDERED: PROPOFOL 20 ML ONE (10:59)
[2024-04-30] MEDS ORDERED: LIDOCAINE HCL/PF 2% SDV 5ML VIAL ONE (11:03)
[2024-04-30] MEDS ORDERED: SUCCINYLCHOLINE CHLORIDE 200 MG/10 ML SYRINGE ONE (11:03)
[2024-04-30 12:40] VITALS: BP 118/78; PULSE 73; RESP 16
== END 2024-04-30 12:43 | disposition home or self-care (01) ==
LOC: FECT 08:29
PROVIDERS: ATTEND Student in an Organized Health Care Education/Training Program
PROC: GZB4ZZZ Other Electroconvulsive Therapy (ICD-10-PCS; principal; 2024-04-30 11:07)
DX: F32.A Depression, unspecified (principal)
CPT/HCPCS: 90870; 94760

== ENCOUNTER 2024-05-07 06:57 | Day surgery (SDC) | payer OTHER ==
[2024-05-01 17:02] VITALS: BMI 19.5
[2024-05-07] MEDS ORDERED: PROPOFOL 20 ML ONE (07:17)
[2024-05-07] MEDS ORDERED: KETAMINE HCL 100 MG/ML - 5ML VIAL ONE (07:17)
[2024-05-07] MEDS ORDERED: SUCCINYLCHOLINE CHLORIDE 200 MG/10 ML SYRINGE ONE (07:17)
[2024-05-07] MEDS ORDERED: ONDANSETRON 4 MG/2 ML VIAL ONE (08:15)
[2024-05-07] MEDS ORDERED: DEXAMETHASONE SOD PHOSPHATE 4 MG/1 ML VIAL ONE (08:15)
[2024-05-07] MEDS ORDERED: KETOROLAC TROMETHAMINE 30 MG/1 ML VIAL ONE (08:15)
[2024-05-07] MEDS ORDERED: LIDOCAINE HCL/PF 2% SDV 5ML VIAL ONE (08:15)
[2024-05-07 10:27] VITALS: BP 131/78; PULSE 77; RESP 18; TEMP 98
== END 2024-05-07 13:00 | disposition home or self-care (01) ==
LOC: FECT 06:57
PROVIDERS: ATTEND Student in an Organized Health Care Education/Training Program
PROC: GZB4ZZZ Other Electroconvulsive Therapy (ICD-10-PCS; principal; 2024-05-07 08:29)
DX: F32.A Depression, unspecified (principal)
CPT/HCPCS: 90870; 94760

== ENCOUNTER 2024-05-14 07:20 | Day surgery (SDC) | payer OTHER ==
[2024-05-14] MEDS ORDERED: KETOROLAC TROMETHAMINE 30 MG/1 ML VIAL ONE (08:40)
[2024-05-14] MEDS ORDERED: KETAMINE HCL 100 MG/ML - 5ML VIAL ONE (08:40)
[2024-05-14] MEDS ORDERED: PROPOFOL 20 ML ONE (08:40)
[2024-05-14] MEDS ORDERED: SUCCINYLCHOLINE CHLORIDE 200 MG/10 ML SYRINGE ONE (08:40)
[2024-05-14] MEDS ORDERED: LIDOCAINE HCL/PF 2% SDV 5ML VIAL ONE (08:40)
[2024-05-14 10:07] VITALS: RESP 18; TEMP 98
[2024-05-14 10:49] VITALS: BP 133/73; PULSE 69
== END 2024-05-14 10:50 | disposition home or self-care (01) ==
LOC: FECT 07:20
PROVIDERS: ATTEND Student in an Organized Health Care Education/Training Program
PROC: GZB4ZZZ Other Electroconvulsive Therapy (ICD-10-PCS; principal; 2024-05-14 08:47)
DX: F32.A Depression, unspecified (principal)
CPT/HCPCS: 90870; 94760

== ENCOUNTER 2024-05-21 08:03 | Day surgery (SDC) | payer OTHER ==
[2024-05-21] MEDS ORDERED: PROPOFOL 20 ML ONE (10:39)
[2024-05-21] MEDS ORDERED: SUCCINYLCHOLINE CHLORIDE 200 MG/10 ML SYRINGE ONE (10:39)
[2024-05-21] MEDS ORDERED: KETOROLAC TROMETHAMINE 30 MG/1 ML VIAL ONE (10:57)
[2024-05-21] MEDS ORDERED: KETAMINE HCL 100 MG/ML - 5ML VIAL ONE (10:57)
[2024-05-21] MEDS ORDERED: LIDOCAINE HCL/PF 2% SDV 5ML VIAL ONE (11:01)
[2024-05-21 11:51] VITALS: RESP 16
[2024-05-21 12:05] VITALS: PULSE 74; TEMP 97.6
[2024-05-21 13:44] VITALS: BP 117/68
== END 2024-05-21 13:20 | disposition home or self-care (01) ==
LOC: FECT 08:03
PROVIDERS: ATTEND Student in an Organized Health Care Education/Training Program
PROC: GZB4ZZZ Other Electroconvulsive Therapy (ICD-10-PCS; principal; 2024-05-21 11:06)
DX: F32.A Depression, unspecified (principal)
CPT/HCPCS: 90870; 94760

== ENCOUNTER 2024-05-28 08:34 | Day surgery (SDC) | payer OTHER ==
[2024-05-28] MEDS ORDERED: KETAMINE HCL 100 MG/ML - 5ML VIAL ONE (10:34)
[2024-05-28 12:26] VITALS: BP 128/78; PULSE 69; RESP 18; TEMP 98
== END 2024-05-28 12:25 | disposition home or self-care (01) ==
LOC: FECT 08:34
PROVIDERS: ATTEND Student in an Organized Health Care Education/Training Program
PROC: GZB4ZZZ Other Electroconvulsive Therapy (ICD-10-PCS; principal; 2024-05-28 10:55)
DX: F33.2 Major depressive disorder, recurrent severe without psychotic features (principal)
CPT/HCPCS: 90870; 94760

== ENCOUNTER 2024-06-04 07:55 | Day surgery (SDC) | payer OTHER ==
[2024-06-04 08:24] VITALS: RESP 18; BMI 19.5
[2024-06-04] MEDS ORDERED: KETAMINE HCL 100 MG/ML - 5ML VIAL ONE (11:48)
[2024-06-04 12:50] VITALS: TEMP 97.7
[2024-06-04 13:09] VITALS: BP 133/85; PULSE 79
== END 2024-06-04 13:15 | disposition home or self-care (01) ==
LOC: FECT 07:55
PROVIDERS: ATTEND Student in an Organized Health Care Education/Training Program
PROC: GZB4ZZZ Other Electroconvulsive Therapy (ICD-10-PCS; principal; 2024-06-04 11:57)
DX: F32.A Depression, unspecified (principal)
CPT/HCPCS: 90870; 94760

== ENCOUNTER 2024-06-18 07:50 | Day surgery (SDC) | payer OTHER ==
[2024-06-15 16:14] VITALS: BMI 180.9
[2024-06-18] MEDS ORDERED: KETAMINE HCL 100 MG/ML - 5ML VIAL ONE (10:35)
[2024-06-18 12:04] VITALS: RESP 18
[2024-06-18 12:07] VITALS: BP 124/81; PULSE 77; TEMP 98
== END 2024-06-18 12:10 | disposition home or self-care (01) ==
LOC: FECT 07:50
PROVIDERS: ATTEND Student in an Organized Health Care Education/Training Program
PROC: GZB4ZZZ Other Electroconvulsive Therapy (ICD-10-PCS; principal; 2024-06-18 10:45)
DX: F32.A Depression, unspecified (principal)
CPT/HCPCS: 90870; 94760

== ENCOUNTER 2024-06-25 08:23 | Day surgery (SDC) | payer OTHER ==
[2024-06-25 08:38] VITALS: BMI 19.1
[2024-06-25] MEDS ORDERED: KETAMINE HCL 100 MG/ML - 5ML VIAL ONE (10:19)
[2024-06-25 12:52] VITALS: RESP 18
[2024-06-25 12:54] VITALS: BP 123/81; PULSE 77; TEMP 97
== END 2024-06-25 13:05 | disposition home or self-care (01) ==
LOC: FECT 08:23
PROVIDERS: ATTEND Student in an Organized Health Care Education/Training Program
PROC: GZB4ZZZ Other Electroconvulsive Therapy (ICD-10-PCS; principal; 2024-06-25 11:15)
DX: F33.2 Major depressive disorder, recurrent severe without psychotic features (principal)
CPT/HCPCS: 90870; 94760

== ENCOUNTER 2024-07-03 10:48 | Day surgery (SDC) | payer OTHER ==
[2024-07-01 11:48] VITALS: BMI 19.3
[2024-07-03] MEDS ORDERED: KETAMINE HCL 100 MG/ML - 5ML VIAL ONE (12:45)
[2024-07-03 15:52] VITALS: BP 126/83; PULSE 84; RESP 16; TEMP 97.1
== END 2024-07-03 15:15 | disposition home or self-care (01) ==
LOC: FECT 10:48
PROVIDERS: ATTEND Student in an Organized Health Care Education/Training Program
PROC: GZB4ZZZ Other Electroconvulsive Therapy (ICD-10-PCS; principal; 2024-07-03 13:21)
DX: F33.2 Major depressive disorder, recurrent severe without psychotic features (principal)
CPT/HCPCS: 90870; 94760

== ENCOUNTER 2024-07-23 11:08 | Day surgery (SDC) | payer OTHER ==
[2024-07-20 13:45] VITALS: BMI 19.3
[2024-07-23] MEDS ORDERED: KETAMINE HCL 100 MG/ML - 5ML VIAL ONE (13:02)
[2024-07-23] MEDS ORDERED: SUCCINYLCHOLINE CHLORIDE 200 MG/10 ML SYRINGE ONE (13:09)
[2024-07-23 13:50] VITALS: RESP 16
[2024-07-23 13:57] VITALS: PULSE 72
[2024-07-23 14:07] VITALS: TEMP 97.7
[2024-07-23 14:53] VITALS: BP 122/78
== END 2024-07-23 14:50 | disposition home or self-care (01) ==
LOC: FECT 11:08
PROVIDERS: ATTEND Psychiatry & Neurology Psychiatry
PROC: GZB4ZZZ Other Electroconvulsive Therapy (ICD-10-PCS; principal; 2024-07-23 13:13)
DX: F32.A Depression, unspecified (principal)
CPT/HCPCS: 90870; 94760

== ENCOUNTER 2024-07-30 10:45 | Day surgery (SDC) | payer OTHER ==
[2024-07-27 09:55] VITALS: BMI 19.3
[2024-07-30] MEDS ORDERED: KETAMINE HCL 100 MG/ML - 5ML VIAL ONE (11:39)
[2024-07-30 12:40] VITALS: PULSE 75; RESP 16; TEMP 97.3
[2024-07-30 13:09] VITALS: BP 116/72
== END 2024-07-30 13:30 | disposition home or self-care (01) ==
LOC: FECT 10:45
PROVIDERS: ATTEND Student in an Organized Health Care Education/Training Program
PROC: GZB4ZZZ Other Electroconvulsive Therapy (ICD-10-PCS; principal; 2024-07-30 11:55)
DX: F32.A Depression, unspecified (principal)
CPT/HCPCS: 90870; 94760

== ENCOUNTER 2024-08-06 08:34 | Day surgery (SDC) | payer OTHER ==
[2024-08-06 08:49] VITALS: BMI 20.1
[2024-08-06] MEDS ORDERED: KETAMINE HCL 100 MG/ML - 5ML VIAL ONE (09:27)
[2024-08-06 10:31] VITALS: RESP 16
[2024-08-06 10:46] VITALS: TEMP 97.8
[2024-08-06 11:07] VITALS: BP 110/69; PULSE 80
== END 2024-08-06 11:30 | disposition home or self-care (01) ==
LOC: FECT 08:34
PROVIDERS: ATTEND Student in an Organized Health Care Education/Training Program
PROC: GZB4ZZZ Other Electroconvulsive Therapy (ICD-10-PCS; principal; 2024-08-06 09:43)
DX: F32.A Depression, unspecified (principal)
CPT/HCPCS: 90870; 94760

== ENCOUNTER 2024-08-27 07:35 | Day surgery (SDC) | payer OTHER ==
[2024-08-27] MEDS ORDERED: ONDANSETRON 4 MG/2 ML VIAL ONE (07:39)
[2024-08-27] MEDS ORDERED: LIDOCAINE HCL/PF 2% SDV 5ML VIAL ONE (07:39)
[2024-08-27] MEDS ORDERED: DEXAMETHASONE SOD PHOSPHATE 4 MG/1 ML VIAL ONE (07:39)
[2024-08-27] MEDS ORDERED: KETOROLAC TROMETHAMINE 30 MG/1 ML VIAL ONE (07:39)
[2024-08-27] MEDS ORDERED: PROPOFOL 20 ML ONE (07:39)
[2024-08-27 08:04] VITALS: BMI 19.9
[2024-08-27] MEDS ORDERED: SUCCINYLCHOLINE CHLORIDE 200 MG/10 ML SYRINGE ONE (08:16)
[2024-08-27] MEDS ORDERED: KETAMINE HCL 100 MG/ML - 5ML VIAL ONE (08:44)
[2024-08-27 10:11] VITALS: RESP 18; TEMP 97.8
[2024-08-27 10:32] VITALS: BP 114/72; PULSE 76
== END 2024-08-27 10:45 | disposition home or self-care (01) ==
LOC: FECT 07:35
PROVIDERS: ATTEND Student in an Organized Health Care Education/Training Program
PROC: GZB4ZZZ Other Electroconvulsive Therapy (ICD-10-PCS; principal; 2024-08-27 09:19)
DX: F32.A Depression, unspecified (principal)
CPT/HCPCS: 90870; 94760

== ENCOUNTER 2024-09-03 07:13 | Day surgery (SDC) | payer OTHER ==
[2024-09-03] MEDS ORDERED: KETAMINE HCL 100 MG/ML - 5ML VIAL ONE (08:37)
[2024-09-03 09:53] VITALS: RESP 18
[2024-09-03 10:46] VITALS: BP 121/71; PULSE 74; TEMP 97
== END 2024-09-03 10:45 | disposition home or self-care (01) ==
LOC: FECT 07:13
PROVIDERS: ATTEND Student in an Organized Health Care Education/Training Program
PROC: GZB4ZZZ Other Electroconvulsive Therapy (ICD-10-PCS; principal; 2024-09-03 09:04)
DX: F32.A Depression, unspecified (principal)
CPT/HCPCS: 90870; 94760

== ENCOUNTER 2024-09-17 08:28 | Day surgery (SDC) | payer OTHER ==
[2024-09-17] MEDS ORDERED: KETOROLAC TROMETHAMINE 30 MG/1 ML VIAL ONE (10:38)
[2024-09-17] MEDS ORDERED: LIDOCAINE HCL 2% 100 MG/5 ML DISP.SYRIN ONE (10:38)
[2024-09-17] MEDS ORDERED: KETAMINE HCL 200 MG/20 ML VIAL ONE (10:38)
[2024-09-17] MEDS ORDERED: PROPOFOL 20 ML ONE (10:38)
[2024-09-17] MEDS ORDERED: SUCCINYLCHOLINE CHLORIDE 200 MG/10 ML SYRINGE ONE (10:39)
[2024-09-17 11:54] VITALS: RESP 18; TEMP 98
[2024-09-17 11:56] VITALS: BP 128/78; PULSE 65
== END 2024-09-17 12:20 | disposition home or self-care (01) ==
LOC: FECT 08:28
PROVIDERS: ATTEND Student in an Organized Health Care Education/Training Program
PROC: GZB4ZZZ Other Electroconvulsive Therapy (ICD-10-PCS; principal; 2024-09-17 10:43)
DX: F33.2 Major depressive disorder, recurrent severe without psychotic features (principal)
CPT/HCPCS: 90870; 94760

== ENCOUNTER 2024-09-24 07:28 | Day surgery (SDC) | payer OTHER ==
[2024-09-24] MEDS ORDERED: KETAMINE HCL 100 MG/ML - 5ML VIAL ONE (11:28)
[2024-09-24] MEDS ORDERED: SUCCINYLCHOLINE CHLORIDE 200 MG/10 ML SYRINGE ONE (11:37)
[2024-09-24 12:24] VITALS: RESP 20; TEMP 97.4
[2024-09-24 13:17] VITALS: BP 123/86; PULSE 85
== END 2024-09-24 13:05 | disposition home or self-care (01) ==
LOC: FECT 07:28
PROVIDERS: ATTEND Student in an Organized Health Care Education/Training Program
PROC: GZB4ZZZ Other Electroconvulsive Therapy (ICD-10-PCS; principal; 2024-09-24 11:40)
DX: F32.A Depression, unspecified (principal)
CPT/HCPCS: 90870; 94760

== ENCOUNTER 2024-10-08 10:08 | Day surgery (SDC) | payer OTHER ==
[2024-10-08 10:28] VITALS: RESP 16
[2024-10-08] MEDS ORDERED: KETAMINE HCL 100 MG/ML - 5ML VIAL ONE (12:16)
[2024-10-08 13:27] VITALS: TEMP 97.9
[2024-10-08 13:38] VITALS: BP 139/84; PULSE 88
== END 2024-10-08 14:00 | disposition home or self-care (01) ==
LOC: FECT 10:08
PROVIDERS: ATTEND Psychiatry & Neurology Psychiatry
PROC: GZB4ZZZ Other Electroconvulsive Therapy (ICD-10-PCS; principal; 2024-10-08 12:33)
DX: F32.A Depression, unspecified (principal)
CPT/HCPCS: 90870; 94760

== ENCOUNTER 2024-10-15 08:32 | Day surgery (SDC) | payer OTHER ==
[2024-10-15 08:49] VITALS: BMI 19.2
[2024-10-15] MEDS ORDERED: KETAMINE HCL 100 MG/ML - 5ML VIAL ONE (10:22)
[2024-10-15 11:20] VITALS: TEMP 98
[2024-10-15 11:54] VITALS: BP 124/83; PULSE 72; RESP 18
== END 2024-10-15 12:30 | disposition home or self-care (01) ==
LOC: FECT 08:32
PROVIDERS: ATTEND Psychiatry & Neurology Psychiatry
PROC: GZB4ZZZ Other Electroconvulsive Therapy (ICD-10-PCS; principal; 2024-10-15 10:31)
DX: F32.A Depression, unspecified (principal)
CPT/HCPCS: 90870; 94760

== ENCOUNTER 2024-10-22 09:37 | Day surgery (SDC) | payer OTHER ==
[2024-10-22 09:57] VITALS: BMI 19.2
[2024-10-22] MEDS ORDERED: KETAMINE HCL 100 MG/ML - 5ML VIAL ONE (11:41)
[2024-10-22 12:50] VITALS: RESP 20; TEMP 97.1
[2024-10-22 13:00] VITALS: BP 121/77; PULSE 78
== END 2024-10-22 13:25 | disposition home or self-care (01) ==
LOC: FECT 09:37
PROVIDERS: ATTEND Student in an Organized Health Care Education/Training Program
PROC: GZB4ZZZ Other Electroconvulsive Therapy (ICD-10-PCS; principal; 2024-10-22 11:54)
DX: F32.A Depression, unspecified (principal)
CPT/HCPCS: 90870; 94760

== ENCOUNTER 2024-11-05 11:33 | Day surgery (SDC) | payer OTHER ==
[2024-11-05 12:45] VITALS: RESP 18; BMI 19.3
[2024-11-05 14:51] VITALS: BP 135/86; PULSE 76
[2024-11-05 14:53] VITALS: TEMP 97.2
== END 2024-11-05 15:59 | disposition home or self-care (01) ==
LOC: FECT 11:33
PROVIDERS: ATTEND Student in an Organized Health Care Education/Training Program
PROC: GZB4ZZZ Other Electroconvulsive Therapy (ICD-10-PCS; principal; 2024-11-05 13:59)
DX: F32.A Depression, unspecified (principal)
CPT/HCPCS: 90870; 94760

== ENCOUNTER 2024-11-13 07:06 | Day surgery (SDC) | payer OTHER ==
[2024-11-13 07:35] VITALS: BMI 18.3
[2024-11-13] MEDS ORDERED: KETAMINE HCL 100 MG/ML - 5ML VIAL ONE (08:53)
[2024-11-13] MEDS ORDERED: LIDOCAINE HCL/PF 2% SDV 5ML VIAL ONE (08:55)
[2024-11-13 10:03] VITALS: RESP 18; TEMP 97.5
[2024-11-13 10:27] VITALS: BP 123/79; PULSE 84
== END 2024-11-13 11:00 | disposition home or self-care (01) ==
LOC: FECT 07:06
PROVIDERS: ATTEND Psychiatry & Neurology Psychiatry
PROC: GZB4ZZZ Other Electroconvulsive Therapy (ICD-10-PCS; principal; 2024-11-13 09:11)
DX: F33.2 Major depressive disorder, recurrent severe without psychotic features (principal)
CPT/HCPCS: 90870; 94760

== ENCOUNTER 2025-01-07 07:28 | Day surgery (SDC) | payer OTHER ==
[2024-12-22 16:29] VITALS: BMI 28.5
[2025-01-07] MEDS ORDERED: KETAMINE HCL 100 MG/ML - 5ML VIAL ONE (09:37)
[2025-01-07 10:47] VITALS: RESP 16; TEMP 97.7
[2025-01-07 10:49] VITALS: BP 130/76; PULSE 76
== END 2025-01-07 12:00 | disposition home or self-care (01) ==
LOC: FECT 07:28
PROVIDERS: ATTEND Psychiatry & Neurology Psychiatry
PROC: GZB4ZZZ Other Electroconvulsive Therapy (ICD-10-PCS; principal; 2025-01-07 09:55)
DX: F32.A Depression, unspecified (principal)
CPT/HCPCS: 90870; 94760

== ENCOUNTER 2025-01-14 09:26 | Day surgery (SDC) | payer OTHER ==
[2025-01-14 09:48] VITALS: BMI 19.0
[2025-01-14] MEDS ORDERED: KETAMINE HCL 100 MG/ML - 5ML VIAL ONE (11:36)
[2025-01-14 12:53] VITALS: RESP 18; TEMP 98
[2025-01-14 13:08] VITALS: BP 121/80; PULSE 74
== END 2025-01-14 13:30 | disposition home or self-care (01) ==
LOC: FECT 09:26
PROVIDERS: ATTEND Student in an Organized Health Care Education/Training Program
PROC: GZB4ZZZ Other Electroconvulsive Therapy (ICD-10-PCS; principal; 2025-01-14 11:56)
DX: F32.A Depression, unspecified (principal)
CPT/HCPCS: 90870; 94760

== ENCOUNTER 2025-03-04 06:44 | Day surgery (SDC) | payer OTHER ==
[2025-03-04 07:09] VITALS: BMI 19.7
[2025-03-04] MEDS ORDERED: KETAMINE HCL 100 MG/ML - 5ML VIAL ONE (07:56)
[2025-03-04 09:32] VITALS: RESP 16; TEMP 97.7
[2025-03-04 10:05] VITALS: BP 131/81; PULSE 78
== END 2025-03-04 10:20 | disposition home or self-care (01) ==
LOC: FECT 06:44
PROVIDERS: ATTEND Student in an Organized Health Care Education/Training Program
PROC: GZB4ZZZ Other Electroconvulsive Therapy (ICD-10-PCS; principal; 2025-03-04 08:37)
DX: F32.A Depression, unspecified (principal)
CPT/HCPCS: 90870; 94760

== ENCOUNTER 2025-03-11 07:45 | Day surgery (SDC) | payer OTHER ==
[2025-03-11 08:09] VITALS: BMI 19.8
[2025-03-11] MEDS ORDERED: KETAMINE HCL 100 MG/ML - 5ML VIAL ONE (09:43)
[2025-03-11 10:29] VITALS: TEMP 97.8
[2025-03-11 10:53] VITALS: RESP 19
[2025-03-11 11:03] VITALS: BP 126/78; PULSE 80
== END 2025-03-11 11:30 | disposition home or self-care (01) ==
LOC: FECT 07:45
PROVIDERS: ATTEND Student in an Organized Health Care Education/Training Program
PROC: GZB4ZZZ Other Electroconvulsive Therapy (ICD-10-PCS; principal; 2025-03-11 09:55)
DX: F32.A Depression, unspecified (principal)
CPT/HCPCS: 90870; 94760

== ENCOUNTER 2025-04-01 12:01 | Day surgery (SDC) | payer OTHER ==
[2025-04-01 12:34] VITALS: BMI 19.8
[2025-04-01] MEDS ORDERED: KETAMINE HCL 100 MG/ML - 5ML VIAL ONE (12:57)
[2025-04-01 13:57] VITALS: BP 130/70; RESP 18
[2025-04-01 14:05] VITALS: PULSE 80; TEMP 97.6
== END 2025-04-01 15:45 | disposition home or self-care (01) ==
LOC: FECT 12:01
PROVIDERS: ATTEND Student in an Organized Health Care Education/Training Program
PROC: GZB4ZZZ Other Electroconvulsive Therapy (ICD-10-PCS; principal; 2025-04-01 13:11)
DX: F33.2 Major depressive disorder, recurrent severe without psychotic features (principal)
CPT/HCPCS: 90870; 94760